=== PATIENT | female | born 1960 | race Caucasian/White ===

== ENCOUNTER 2020-03-10 03:12 | Outpatient (CLI) | payer BC, SELFPAY ==
[2020-03-10 12:34] LABS: Hemoglobin A1C 12.2 % (<5.7)
[2020-03-10 12:41] LABS: ALT 38 U/L (14-59); AST 15 U/L (15-37); Albumin 3.8 g/dL (3.4-5.0); Alkaline Phosphatase 109 U/L (46-116); Anion Gap 5.9 mmol/L (3-11); BUN 13 mg/dL (7-18); Bilirubin, Total 0.5 mg/dL (0.2-1.0); CO2 29.1 mmol/L (21.0-32.0); CREATININE 0.84 mg/dL (0.55-1.02); Calcium 9.1 mg/dL (8.5-10.1); Calculated LDL 133 mg/dL (<100); Chloride 101 mmol/L (98-107); Cholesterol 219 mg/dL (<200); Glucose 312 mg/dL (74-106); HDL Cholesterol 39 mg/dL (40-60); Potassium 4.2 mmol/L (3.5-5.1); Sodium 136 mmol/L (136-145); TSH 5.11 uIU/mL (0.36-3.74); Total Protein 6.7 g/dL (6.4-8.2); Triglyceride 238 mg/dL (<150)
[2020-03-10 13:00] LABS: FREE T4 1.03 ng/dL (0.76-1.46)
[2020-03-10 18:39] LABS: Thyroglobulin Antibody 53 U/mL (<=60); Thyroperoxidase Antibody 918 U/mL (<=60)
== END 2020-03-10 03:32 ==
PROVIDERS: PCP Nurse Practitioner Family; Visit Provider Nurse Practitioner Family
DX: E11.9 Type 2 diabetes mellitus without complications (principal); Z00.00 Encounter for general adult medical examination without abnormal findings
CPT/HCPCS: 36415; 80053; 80061; 86376; 83036; 84439; 84443

== ENCOUNTER 2020-03-18 11:28 | Outpatient (REF) | payer BC, SELFPAY ==
--- NOTE | 2020-03-18 10:00 | PAPFT_PTH ---
PATIENT: Melinda Goncalves LOC: [place] U#:[id number] AGE/SX: 60/F ROOM: RE03/18/[address]: CARLA Espinoza : 1960 BED: DIS: 03/18/2020 SPEC #: [id number] RECD: 03/18/20 13:03 STATUS: MAYKEL ELLIS #: [id number] JULIENNE: 03/18/20 10:[address]: Carolynn Wisdom DEPT: FOR[facility], [facility]–1983 Cytology RECD BY: Carmen Nieto Tissues: 1 - CX/ENDOCX FOR PAP SMEARS Procedures: PAP THIN PREP/UVM Screening HPV DNA PROBE Comments: [id number]
== END 2020-03-18 11:48 ==
LOC: LBN 11:28
PROVIDERS: PCP Nurse Practitioner Family; Visit Provider Nurse Practitioner Family
DX: Z12.4 Encounter for screening for malignant neoplasm of cervix (principal); Z11.51 Encounter for screening for human papillomavirus (HPV)
CPT/HCPCS: 88142; 87624

== ENCOUNTER 2020-07-15 17:21 | Emergency (ER) | payer BC, SELFPAY ==
[2020-07-15] VITALS (7 sets, daily range): BP systolic 108–119; BP diastolic 55–59; PULSE 59–70; RESP 12–21; TEMP 36.5–36.6; O2SAT 93–97
--- NOTE | 2020-07-15 17:24 | ED.GENADUL_ITS ---
Discharge Plan Disposition Patient Disposition: HOME Condition: Stable Discharge Details Clinical Impression: Alteration in vision Primary Care Provider: Carolynn Wisdom ED Provider: Silvana Hall Home Meds and New Rx's Prescriptions: Continued Adult 50 Plus Probiotic 4 billion cell capsule 4,000 mmu cells PO DAILY RF: 0 Complete Multivitamin Tablet 1 tab PO DAILY RF: 0 (DME) blood-glucose meter [OneTouch Ultra2 Meter] Misc See Rx Instructions .ROUTE .MEDSUPPLY Qty: 1 RF: 4 (DME) lancets [OneTouch Delica Lancets] 33 gauge misc See Rx Instructions .ROUTE .MEDSUPPLY Qty: 200 RF: 4 (DME) OneTouch Ultra Blue Test Strip Strip See Rx Instructions .ROUTE .MEDSUPPLY Qty: 200 RF: 4 rosuvastatin [Crestor] 5 mg tablet 2.5 mg PO DAILY Qty: 90 RF: 4 metformin 500 mg tablet 500 - 1,000 mg PO BID Qty: 270 RF: 4 (DME) pen needle, diabetic [BD Ultra-Fine Mini Pen Needle] 31 gauge x 3/16 needle See Rx Instructions .ROUTE .MEDSUPPLY Qty: 100 RF: 4 clotrimazole 1 % cream 1 applic TP QAM Qty: 113 RF: 0 triamcinolone acetonide 0.1 % cream 1 applic TP QPM Qty: 80 RF: 0 Lantus Solostar U-100 Insulin 100 unit/mL (3 mL) insulin pen 30 unit subcut QPM RF: 0 Discharge Instructions Instructions: Aspirin (By mouth), Visual Floaters (ED) Additional Instructions: As we discussed, we do not have a definitive diagnosis. There is concern for potential vasculitis although neurology advises that as of now we will treat similar to a stroke. She would like for you to begin daily aspirin. Please take your statin as previously prescribed as well as her other medications. I would like you to follow-up with both neurology as well as her primary care next week. You should have your inflammatory markers rechecked through your primary care next week. Please call Saturday to schedule follow-up appointment. Care management will also reach out to you to help schedule follow-up with neurology. If you develop severe headaches, vomiting, inability stay hydrated, weakness, visual loss or other new/worsening symptoms please seek care urgently once again. Referrals: Carolynn Wisdom NP [Primary Care Provider] - Blaire Covarrubias MD [ [facility] STAFF PHYSICIAN] - Discharge Data Discharge Date/Time-TO BE ENTERED AT DEPARTURE: 07/15/20 23:11 Medical Decision Making Patient is a pleasant 60-year-old female presenting today with chief complaint of left-sided intermittent hemianopsia. She reports this began 1 week ago and has been intermittent since that time. Her initial symptom was complete loss of vision on the left eye for 10 to 15 minutes which then came back. States that this is painless. Subsequently she has had intermittent symptoms. States that she may or may not have a headache associated with this. Denies having symptoms like this historically. States that she presented to her primary care today after having 3 episodes of this this morning and a 2-hour time period. She reports that when she has the symptoms, they last approximately 5 minutes. Initially, the patient had described this as a darkening of her visual field. However, she now going on to describe this as glass bubble that m who did not note any intraocular source of her symptoms. She has not had any symptoms since this morning. States that she has continued to work and complete her daily tasks. oves into the left side of her visual field. She denies any eye pain. She was seen by [facility] eye care today. They were concerned for TIA or temporal arteritis. Past medical history pertinent for type 2 diabetes, hyperlipidemia, diabetic retinopathy, hypothyroidism. Patient is also reporting increased fatigue and shortness of breath x1 month. She states that this could be associated with wearing a mask as that is what seems to work the symptoms worse. She also states that she is been very sedentary with the pandemic and this too may be linked to her increase shortness of breath and fatigue. Notes this more so when she is active. She denies any chest pain. No fevers or chills. On exam, patient appears nontoxic. Neurologic exam is intact. Visual adame are intact. She is currently asymptomatic. She has no pain over her temples. She has no nuchal rigidity. Considered TIA although I do not see any evidence of focal deficit at this point. We will also considered temporal arteritis although she was not having any temporal pain. Will obtain CBC, ESR and CRP. With the patient's increased shortness of breath, fatigue we will also obtain a D-dimer. I find pulmonary embolism less likely but do have it on the differential list. She not having any chest pain but this could also be cardiac mimic, will obtain a troponin and EKG. Plan to obtain electrolyte panel, TSH screening. ECG reviewed by Dr. Roman. NSR, rate 63. PVC noted. AL interval prlonged at 243. No acute ischemic changes noted. Labs reviewed. No leukocyte esterase. Stable H&H. D-dimer within normal limits, normal coags. No electrolyte abnormalities. Her glucose is 220. Patient has been elevated like this recently and reports that she is supposed to see a application support technician on Saturday. Troponin within normal limits. TSH is elevated but free T4 is within normal limits. FINDINGS: Lungs: No consolidation. Pleural space: No significant pleural effusion. No pneumothorax. Heart/Mediastinum: No cardiomegaly. Bones/joints: Probable minor calcific tendonitis in the right shoulder. No displaced fracture. IMPRESSION: Negative portable chest. FINDINGS: ANTERIOR CIRCULATION: Right internal carotid artery: Intracranial segment is patent with no significant stenosis. No aneurysm. Right middle cerebral artery: No occlusion or significant stenosis. No aneurysm. Right anterior cerebral artery: No occlusion or significant stenosis. No aneurysm. Left internal carotid artery: Intracranial segment is patent with no significant stenosis. No aneurysm. Left middle cerebral artery: No occlusion or significant stenosis. No aneurysm. Left anterior cerebral artery: No occlusion or significant stenosis. No aneurysm POSTERIOR CIRCULATION: Right vertebral artery: No occlusion or significant stenosis. No aneurysm. Left vertebral artery: No occlusion or significant stenosis. No aneurysm. Basilar artery: No occlusion or significant stenosis. No aneurysm. Right posterior cerebral artery: Patent proximally. The distal right CTO segments are patent, however very diminutive compared to the right and somewhat irregular in appearance. Left posterior cerebral artery: No occlusion or significant stenosis. No aneurysm. HEAD: Brain: No intracranial edema or hemorrhage. No significant white matter disease for the patient's age. Cerebral ventricles: Normal. No ventriculomegaly. Pituitary gland and sella: CSF density in the sella turcica, likely so-called benign empty sella. Bones/joints: No acute fracture. Paranasal sinuses: Visualized sinuses are normal. No fluid levels. Mastoid air cells: No mastoid effusion. Soft tissues: No suspicious lesions. IMPRESSION: The distal right CTO segments are patent, however very diminutive compared to the right and somewhat irregular in appearance. Question vasculitis in the right clinical setting. No focal thrombus or embolus is seen. FINDINGS: Right common carotid artery: No significant stenosis. No dissection or occlusio n. Right internal carotid artery: No stenosis or occlusion. No significant atherosclerosis. Right external carotid artery: No occlusion or significant stenosis. Right vertebral artery: No significant stenosis. No dissection or occlusion. Left common carotid artery: No significant stenosis. No dissection or occlusion. Left internal carotid artery: Minimal proximal left ICA atherosclerosis. Widely patent with mild much less than 50% stenosis. No dissection or occlusion. Left external carotid artery: No occlusion or significant stenosis. Left vertebral artery: No significant stenosis. No dissection or occlusion. Bones/joints: Mid cervical degenerative changes. Probable small benign hemangioma at C4. No acute fracture or subluxation. Soft tissues: No significant soft tissue swelling. IMPRESSION: No acute arterial pathology. Patent carotid and vertebral system bilaterally. Discussed these findings withteh patient. When I went in the roomshe advised that she was having the symptoms. We were able to narrow down that the area of visual disturbance is the left upper outter quadrant. She has intact visual adame with no notable deficit. However, she is having the broken glass bubbles in her field of vision. this lasted about 5 minutes. No AGEE. Nothing to incite or improve symptoms. Constulted with Dr. Haro with [facility]. She was able to review the images and is not clear that the read is correct. She advised that if the patient was to have lesion/vasculitis in the right CTO it should cause bilateral visual symptoms, not the unilateral that the patient has been suffering from. She also advised that focal vasculitis is unusual. She advised that we instead should treat the patient like a stroke although she does not see evidence of acute occlusion. She is already on a statin but she advised starting her on ASA. She did not recommend echo as this was affecting the posterior circulation. She advised f/u with Dr. Niño this week as well as repeat ESR/CRP this week through primary care. She did nto feel that the patient needed to be admitted. I discussed this witht he patient. She agrees with this plan. I have placed her on care management list for f/u with neurology. She iwll call PCP on Saturday to schedule f/u appointment and discuss repeat labs. Strict return precautions were given. She has someone to drive her home. Dose of ASA given while here. All of her question snad concerns were addressed, she is in agreement with this plan. HPI General Mode of arrival: ambulatory . Date/Time Provider Initiated Documentation: 07/15/20 17:23 . Limitations to Documentation: no limitations . Information obtained by: patient, RN notes reviewed and old records reviewed (note sent over from [facility]) . History of Present Illness 60 year old F presents to the emergency department with the chief complaint of intermittent lateral visual disturbance in left eye, described as moderate, Quality is described as other (denies any pain, able to complete typical activities), and is localized to the eyes (only the left). Patient reports no radiation. Patient started experiencing this week(s) (1) and it has been intermittent and now resolved. No relieving factors improve symptom(s), No exacerbating factors reported . Patient notes headaches (intermittent and not always with the visual changes); denies chest pain, cough, diaphoresis, fever/chills, loss of appetite, nausea/vomiting, rash, shortness of breath, syncope and weakness. Patient did receive the following treatments prior to arrival, none Related Data Home Medications Medication Instructions Recorded Confirmed lactobacillus combination no.9 4 4,000 mmu cells PO DAILY 03/04/20 07/15/20 billion cell capsule multivitamin,[id number] 1 tab PO DAILY 03/04/20 07/15/20 blood sugar diagnostic #200 ea 03/18/20 07/15/20 blood-glucose meter #1 ea 03/18/20 07/15/20 lancets 33 gauge #200 ea 03/18/20 07/15/20 metformin 500 mg tablet 500 - 1,000 mg PO BID #270 tab 04/21/20 07/15/20 rosuvastatin 5 mg tablet 2.5 mg PO DAILY #90 tab 04/21/20 07/15/20 pen needle, diabetic 31 gauge x #100 ea 05/30/20 07/15/20/16 clotrimazole 1 % topical cream 1 applic TP QAM #113 gm 07/13/20 07/15/20 triamcinolone acetonide 0.1 % 1 applic TP QPM #80 gm 07/13/20 07/15/20 topical cream Lantus Solostar U-100 Insulin 30 unit SUBCUT QPM 07/15/20 07/15/20 Previous Rx's Medication Instructions Recorded blood sugar diagnostic #200 ea 03/18/20 blood-glucose meter #1 ea 03/18/20 lancets 33 gauge #200 ea 03/18/20 metformin 500 mg tablet 500 - 1,000 mg PO BID #270 tab 04/21/20 rosuvastatin 5 mg tablet 2.5 mg PO DAILY #90 tab 04/21/20 pen needle, diabetic 31 gauge x #100 ea 05/30/2009/13 clotrimazole 1 % topical cream 1 applic TP QAM #113 gm 07/13/20 triamcinolone acetonide 0.1 % 1 applic TP QPM #80 gm 07/13/20 topical cream Allergies Allergy/AdvReac Type Severity Reaction Status Date / Time No Known Allergies Allergy Unverified 07/15/20 12:01 Review of Systems Constitutional Constitutional: Reports as per HPI, Denies chills, Denies fever(s), Denies frequent falls, Reports headache(s), Denies snoring and Denies weakness Eyes Eyes: Reports as per HPI, Denies blurry vision, Reports change in vision, Denies diplopia, Denies eye discharge, Reports floaters, Denies irritation, Denies itchy eyes, Denies loss of peripheral vision, Denies loss of vision (had hemionopsia on left eye at initial onset but none since then), Reports requires corrective lenses (chronic), Denies photophobia and Denies spots in vision ENT Ears, Nose, Mouth, and Throat: Denies vertigo, Reports headache(s) and Denies neck pain Cardiovascular Cardiovascular: Reports as per HPI, Denies chest pain, Denies lightheadedness, Denies radiating jaw, neck or arm pain, Denies dyspnea and Denies dyspnea on exertion Respiratory Respiratory: Reports as per HPI, Denies chest congestion, Denies cough, Denies dyspnea, Denies dyspnea on exertion, Denies snoring, Denies stridor and Denies wheezing Gastrointestinal Gastrointestinal: Reports as per HPI, Denies abdominal pain, Denies change in bowel habits, Denies nausea and Denies vomiting Musculoskeletal Musculoskeletal: Reports as per HPI, Denies back pain, Denies myalgias, Denies muscle cramps, Denies neck pain and Denies numbness Integumentary/Breasts Skin/Breast: Reports as per HPI and Denies rash Neurologic Neurologic: Reports as per HPI, Denies abnormal movements, Denies abnormal speech, Denies behavioral changes, Denies confusion, Denies vertigo, Denies frequent falls, Reports headache(s), Denies localized weakness, Denies loss of vision (had hemionopsia on left eye at initial onset but none since then), Denies numbness, Denies sensory deficit and Denies weakness Psychiatric Psychiatric: Denies behavioral changes and Denies confusion Allergic/Immunologic Allergic/Immunologic: Denies itchy eyes and Denies wheezing [facility] Medical History Diabetic retinopathy of right eye Mild Hyperlipidemia Subclinical hypothyroidism Type 2 diabetes mellitus Surgical History S/P appendectomy (~1972) Family History Mother Hyperlipidemia Father Heart disease Sister No problems noted. Brother Lymphedema Brother No problems noted. Son No problems noted. Daughter No problems noted. Maternal Grandfather Cancer Maternal Grandmother Dementia Paternal Grandfather No problems noted. Paternal Grandmother Diabetes Social History Smoking/Tobacco Use Status: Former Tobacco Use Quit Date: 07/01/15 Second Hand Exposure: Yes (father yrs ago) Smoking risk assessment performed?: Yes Alcohol Intake: current Alcohol Intake frequency: 0-2 drinks per day Alcohol type: beer and wine Drug use: Never Caregiver/Support person: No Housing: house Communication Needs: None Pets and animals: Yes Do you think of yourself as: straight/heterosexual Current gender identity: female What is your relationship status?: How often do you talk on the phone with friends or family?: three or more times per week How often do you get together with friends or relatives?: once per week How often do you attend episcopalian or druze services?: decline to answer Do you belong to any clubs or organized social groups?: yes Panel score (0-1 are the most socially isolated patients): 2 What type of physical activity do you participate in: none Yisel/Caodaism: None Seatbelt use: always Helmet use: Yes Helmet use: always Drive intox or ride w/intox entry driver operator: No Do you feel safe at home: Yes Do you feel safe in your relationship?: Yes History History 3 Para 2 Hx # Term Pregnancies Multiple births Hx # Pregnancies Ectopic pregnancies AB induced 1 Hx Number of Living Children 2 AB spontaneous Exam Const General: cooperative, healthy appearing, uncomfortable, no acute distress, well developed and well groomed Nutritional Appearance: average body habitus and well nourished Orientation: alert, awake and oriented x3 HENMT Head: normal to inspection, no palpable skull fracture, normocephalic and atraumatic Ears: hearing grossly normal bilaterally, external ears normal and TM's normal bilaterally General nose exam: external nose normal Mouth: oral mucosae normal and moist mucous membranes Throat: posterior oropharynx normal Eyes General: appearance normal, both eyes and all related structures Visual Adame: normal visual adame by confrontation Alignment and Position: alignment normal and position normal Periorbital: periorbital findings normal Eyelids: eyelids normal Sclera: sclerae normal Cornea: corneas normal Pupils: dilated bilaterally (eyes were dilated just prior to arrival by police communications dispatcher) EOM: EOM intact bilaterally Neck Neck: normal visual inspection, full ROM, no lymphadenopathy and no meningeal signs Resp Effort & Inspection: normal respiratory effort, able to speak in complete se ntences and no respiratory distress Auscultation: clear to auscultation bilaterally, no rales, no rhonchi and no wheezes Cardio Rate: regular rate Rhythm: regular rhythm Heart Sounds: S1 normal and S2 normal GI Palpation: rigid and tender Back/Spine/Pelvis Cervical Spine: normal cervical lordosis and cervical ROM normal Skin General skin exam: no rashes or lesions noted Neuro General: patient alert, patient awake and patient oriented x3 Cranial Nerves: CN's II-XI intact bilaterally Cognition: normal cognition Speech: speech normal Gait: normal gait Motor: muscle tone normal throughout, strength 5/5 throughout, no pronator drift, no movement abnormalities noted and no fasciculations Sensory Exam: no sensory deficits noted Coordination: [id number] test normal, [id number] test normal, Romberg test normal, Does not sway with eyes open and rapid alternating movement UE normal Extrem General: normal to inspection, capillary refill normal, no pedal edema and no calf tenderness Psych Appearance: grossly normal and well kempt Mental Status: mental status grossly normal Speech and Movement: speech and movement normal
--- NOTE | 2020-07-15 18:00 | RT.EKG_ITS ---
APPROVED REPORT Exam: Resting ECG Patient Location: E HR:63 bpm ECG Measurements Heart Rate 63 AXIS IN 243 P 0 QRSd 96 QRS -5 QT 420 T 56 QTc 430 Conclusion Sinus rhythm. Ventricular premature complex. Prolonged IN interval.
--- NOTE | 2020-07-15 18:00 | DI.CT_ITS ---
EXAM: CT BRAIN NECK CTA CLINICAL HISTORY: left lateral visual deficit intermittently. TECHNIQUE: Imaging Protocol: Axial CT angiography was performed with multi-slice acquisition and mu lti-planar and/or 3D reconstructions. CONTRAST MATERIAL: Intravenous: Omnipaque 350 Contrast volume:85 mL COMPARISON: No exams were available for comparison FINDINGS: CT Head W/O: Ventricles and Extra axial spaces: Normal in size and morphology for the patient's age. Hemorrhage: None. Cerebral parenchyma: Normal. Midline shift: None. Brainstem/Cerebellum: Normal. Calvarium: Normal. Visualized Paranasal sinuses/Mastoids: Clear. Soft Tissues: Unremarkable. CTA Brain W: Internal Carotid Arteries: Petrous: Normal. Cavernous: Normal. Cerebral: Normal. Anterior Cerebral Arteries: Right: No aneurysm, occlusion or significant stenosis. Left: No aneurysm, occlusion or significant stenosis. Middle Cerebral Arteries: Right: No aneurysm, occlusion or significant stenosis. Left: No aneurysm, occlusion or significant stenosis. Posterior cerebral Arteries: Right: No aneurysm or occlusion. Mild decrease in size of the right distal FILM CRITIC segments. They have a somewhat irregular appearance. Vasculitis cannot be excluded given in the right clinical setting. Left: No aneurysm, occlusion or significant stenosis. Vertebral Arteries: Right: No aneurysm, occlusion or significant stenosis. Left: No aneurysm, occlusion or significant stenosis. Basilar Artery: No aneurysm, occlusion or significant stenosis. CTA Neck W: Common Carotid: Right: No dissection, occlusion or significant stenosis. Left: No dissection, occlusion or significant stenosis. External Carotid: Right: No occlusion or significant stenosis. Left: No occlusion or significant stenosis. Internal Carotid: Right: No dissection, occlusion or significant stenosis. Left: No dissection, occlusion or significant stenosis. Mild proximal atherosclerosis. Vertebral Artery: Right: No dissection, occlusion or significant stenosis. Left: No dissection, occlusion or significant stenosis. Lung Apices: Normal. Bones: Mild degenerative changes in the cervical spine. Soft Tissues: Normal. IMPRESSION: 1. No evidence of occlusion or aneurysm in the CTA of the brain. 2. Patent distal right FILM CRITIC segments however smaller in size compared to the left. Vasculitis should be considered in the appropriate clinical setting. 3. No acute intracranial process. Unremarkable non-contrast CT of the brain. 4. No evidence of occlusion or significant stenosis on the CTA of the neck. RADIATION DOSE DELIVERED: 1,158.64mGy.cm Total DLP DATA REPOSITORY: All CT scans at this facility are submitted to the National Radiology Data Registry (NRDR) Dose Index Registry (DIR) with the [employer] (A[employer]). RADIATION OPTIMIZATION: All CT scans at this facility use at least one of these dose optimization te chniques: automated exposure control; mA and/or kV adjustment per patient size (includes targeted exa ms where dose is matched to clinical indication); or iterative reconstruction.
--- NOTE | 2020-07-15 18:08 | DI.RAD_ITS ---
EXAM: XR PORTABLE CHEST AP CLINICAL HISTORY: SOB TECHNIQUE: 2D digital imaging was performed. COMPARISON: No exams were available for comparison FINDINGS: MEDIASTINUM: Normal. HEART: Normal. PULMONARY VASCULATURE: Normal. LUNGS: Clear. PLEURAL SPACE: No pleural effusion or pneumothorax. BONE:Within normal limits for the patient's age. OTHER FINDINGS:Normal. IMPRESSION: No acute pulmonary findings. DATA REPOSITORY: RADIATION DOSE DELIVERED:
[2020-07-15 18:35] LABS: Abs Immature Grans 0.02 10^3/uL (0.0-0.06); Absolute Basophil Count 0.08 10^3/uL (0.0-0.2); Absolute Lymphocyte Count 2.45 10^3/uL (1.2-3.4); Absolute Monocyte Count 0.44 10^3/uL (0.1-0.8); Absolute Neutrophil Count 3.93 10^3/uL (1.2-6.7); Basophils % 1.1; Eosinophils % 2.8; HCT 38.5 % (36.0-46.0); HGB 12.9 g/dL (11.2-15.7); Immature Grans % 0.3; Lymphocytes % 34.4; MCH 29.5 pg (27.0-33.0); MCHC 33.5 % (32.0-36.0); MCV 88.1 fL (80-95); Monocytes % 6.2; Neutrophils % 55.2; Nucleated RBC 0 %; Platelet Count 249 10^3/uL (130-400); RBC 4.37 10^6/uL (3.93-5.22); RDW 12.3 % (11.7-14.6); RDW-SD 39.9 fL; WBC 7.12 10^3/uL (4.4-10.8)
[2020-07-15 18:52] LABS: ALT 26 U/L (14-59); AST 19 U/L (15-37); Albumin 3.7 g/dL (3.4-5.0); Alkaline Phosphatase 75 U/L (46-116); Anion Gap 8.8 mmol/L (3-11); BUN 15 mg/dL (7-18); Bilirubin, Total 0.4 mg/dL (0.2-1.0); CO2 25.2 mmol/L (21.0-32.0); Calcium 9.1 mg/dL (8.5-10.1); Chloride 104 mmol/L (98-107); Estimated GFR 56.75 (mL/min/1.73m2); Glucose 220 mg/dL (74-106); Magnesium 1.9 mg/dL (1.8-2.4); Potassium 3.8 mmol/L (3.5-5.1); Sodium 138 mmol/L (136-145); Total Protein 7.3 g/dL (6.4-8.2); Troponin I < 0.05 ng/mL (<0.06)
[2020-07-15 19:09] LABS: D-Dimer 377 ng/mlFEU (<500)
[2020-07-15 19:30] LABS: TSH (W/Ref FT4) 4.83 uIU/mL (0.36-3.74)
[2020-07-15 19:48] LABS: FREE T4 0.95 ng/dL (0.76-1.46)
[2020-07-15] MEDS: Normal Saline Flush 10 ML SYR IVP (19:58)
[2020-07-15] MEDS: Normal Saline - Diluent 50 ML VIAL IV (19:59)
[2020-07-15] MEDS: Omnipaque 350 MG/ML 100 ML BTL IJ (19:59)
--- NOTE | 2020-07-15 20:04 | DI.VRAD_ITS ---
Addendum created by Marya Loomis MD on 07/15/2020 8:28:25 PM EST: THIS REPORT CONTAINS FINDINGS THAT MAY BE CRITICAL TO PATIENT CARE. The pertinent findings were verbally communicated via telephone conference with Dr Hills at 20:28 EST on 07/15/2020. The findings were acknowledged and understood. Initial report created on 07/15/2020 8:04:35 PM EST: PROCEDURE INFORMATION: Exam: CT Angiography Head Without And With Contrast Exam date and time: 07/15/2020 18:11 Age: 60 years old Clinical indication: Visual disturbance; Other visual defect; Patient HX: Left eye only, left lateral visual deficit intermittently TECHNIQUE: Imaging protocol: Computed tomographic angiography of the head without and with intravenous contrast. 3D rendering (Not supervised by radiologist): MIP and/or 3D reconstructed images were created by the technologist. Radiation optimization: All CT scans at this facility use at least one of these dose optimization techniques: automated exposure control; mA and/or kV adjustment per patient size (includes targeted exams where dose is matched to clinical indication); or iterative reconstruction. Contrast material: [id number]; Contrast volume: 85 ml; Contrast route: INTRAVENOUS (IV); COMPARISON: No relevant prior studies available. FINDINGS: ANTERIOR CIRCULATION: Right internal carotid artery: Intracranial segment is patent with no significant stenosis. No aneurysm. Right middle cerebral artery: No occlusion or significant stenosis. No aneurysm. Right anterior cerebral artery: No occlusion or significant stenosis. No aneurysm. Left internal carotid artery: Intracranial segment is patent with no significant stenosis. No aneurysm. Left middle cerebral artery: No occlusion or significant stenosis. No aneurysm. Left anterior cerebral artery: No occlusion or significant stenosis. No aneurysm. POSTERIOR CIRCULATION: Right vertebral artery: No occlusion or significant stenosis. No aneurysm. Left vertebral artery: No occlusion or significant stenosis. No aneurysm. Basilar artery: No occlusion or significant stenosis. No aneurysm. Right posterior cerebral artery: Patent proximally. The distal right FAN MAIL CLERK segments are patent, however very diminutive compared to the right and somewhat irregular in appearance. Left posterior cerebral artery: No occlusion or significant stenosis. No aneurysm. HEAD: Brain: No intracranial edema or hemorrhage. No significant white matter disease for the patient's age. Cerebral ventricles: Normal. No ventriculomegaly. Pituitary gland and sella: CSF density in the sella turcica, likely so-called benign empty sella. Bones/joints: No acute fracture. Paranasal sinuses: Visualized sinuses are normal. No fluid levels. Mastoid air cells: No mastoid effusion. Soft tissues: No suspicious lesions. IMPRESSION: The distal right FAN MAIL CLERK segments are patent, however very diminutive compared to the right and somewhat irregular in appearance. Question vasculitis in the right clinical setting. No focal thrombus or embolus is seen. PROCEDURE INFORMATION: Exam: CT Angiography Neck Without And With Contrast Exam date and time: 07/15/2020 18:11 Age: 60 years old Clinical indication: Visual disturbance; Other visual defect; Patient HX: Left eye only, left lateral visual deficit intermittently TECHNIQUE: Imaging protocol: Computed tomographic angiography of the neck without and with intravenous contrast. 3D rendering (Not supervised by radiologist): MIP and/or 3D reconstructed images were created by the technologist. Radiation optimization: All CT scans at this facility use at least one of these dose optimization techniques: automated exposure control; mA and/or kV adjustment per patient size (includes targeted exams where dose is matched to clinical indication); or iterative reconstruction. Contrast material: [id number]; Contrast volume: 85 ml; Contrast route: INTRAVENOUS (IV); COMPARISON: No relevant prior studies available. FINDINGS: Right common carotid artery: No significant stenosis. No dissection or occlusion. Right internal carotid artery: No stenosis or occlusion. No significant atherosclerosis. Right external carotid artery: No occlusion or significant stenosis. Right vertebral artery: No significant stenosis. No dissection or occlusion. Left common carotid artery: No significant stenosis. No dissection or occlusion. Left internal carotid artery: Minimal proximal left ICA atherosclerosis. Widely patent with mild much less than 50% stenosis. No dissection or occlusion. Left external carotid artery: No occlusion or significant stenosis. Left vertebral artery: No significant stenosis. No dissection or occlusion. Bones/joints: Mid cervical degenerative changes. Probable small benign hemangioma at C4. No acute fracture or subluxation. Soft tissues: No significant soft tissue swelling. IMPRESSION: No acute arterial pathology. Patent carotid and vertebral system bilaterally. REFERENCES: NASCET CRITERIA. The degree of internal carotid artery stenosis is based on NASCET criteria. Normal is no stenosis. Mild is less than 50% stenosis. Moderate is 50-69% stenosis. Severe is 70% to 99% stenosis. Total occlusion is no detectable patent lumen. Dictated and Authenticated by: Marya Loomis MD. Ordering:RYLEE Pina MD
--- NOTE | 2020-07-15 20:05 | DI.VRAD_ITS ---
PROCEDURE INFORMATION: Exam: XR Chest, 1 View Exam date and time: 07/15/2020 18:50 Age: 60 years old Clinical indication: Shortness of breath TECHNIQUE: Imaging protocol: XR of the chest Views: 1 view. COMPARISON: No relevant prior studies available. FINDINGS: Lungs: No consolidation. Pleural space: No significant pleural effusion. No pneumothorax. Heart/Mediastinum: No cardiomegaly. Bones/joints: Probable minor calcific tendonitis in the right shoulder. No displaced fracture. IMPRESSION: Negative portable chest. Dictated and Authenticated by: Marya Loomis MD. Ordering:RYLEE Pina MD
[2020-07-15 20:27] LABS: C-Reactive Protein 0.27 mg/dL (0.0-0.3)
[2020-07-15 21:18] LABS: ESR 12 mm/hr (0-30)
--- NOTE | 2020-07-15 22:53 | NUR.NOTE ---
Nursing Note:REFERAL TO MELANIE MAKE APPT TO DR PIERRE NEXT WEEK 07/15/20
[2020-07-15] MEDS: Aspirin 325 MG TAB (22:57)
== END 2020-07-15 23:11 | disposition home or self-care (01) ==
PROVIDERS: Emergency Provider Physician Assistant; PCP Nurse Practitioner Family
DX: H53.482 Generalized contraction of visual field, left eye (principal); E11.319 Type 2 diabetes mellitus with unspecified diabetic retinopathy without macular edema; E11.65 Type 2 diabetes mellitus with hyperglycemia; Z79.4 Long term (current) use of insulin
CPT/HCPCS: 36415; 70496; 70498; 80053; 85652; 93005; 99285; 71045; 83735; 84439; 84443; 84484; 85025; 85379; 85610; 86140; 93010; J3490

== ENCOUNTER 2020-07-18 04:50 | Outpatient (CLI) | payer BC, SELFPAY ==
--- NOTE | 2020-07-18 15:00 | NS.NUTBLAN_ITS ---
Melinda was referred for Medical Nutrition Therapy for diabetes self management education. Melinda is a 60 year old female with elevated BMI, hypothroidism, DM2, HLD with recent ER visit for visual disturbances related to diabetic retinopathy. A1c has improved from 12.2% (03/2020) to 8.6% (07/18/20), however, blood sugar control continues to be poor. Melinda reports elevated post prandial levels as high as 300-400s mg/dl in afternoon. Melinda reports checking BS, 1-2 times daily. Diet recall indicates mostly homemade well balanced meals with moderate activity daily caring for her horses. She reports that her typical adult weight was 250 lbs, was able to lose 50 lbs a couple years ago by increasing activity while working for [employer]. Current Wt: 217 lbs, 63 inches, BMI 39. Meds: 1000 mg metformin BID, 30 units lantus at HS, metformin increased today, also received script for 50 mcg levothyroixin for hypoactive thyroid. Melinda was at PCP today who encouraged her to get a continuous glucose monitor to better evaluate glucose variability and patterns. Expect glucose control to be improved with treated hypothyroidism and increase in metformin. Session today included how to count carbohydrates and how to limit carbs at meals and balance with lean protein. Encouraged 1 mile walk daily to increase exercise and glucose utilization my muscles. Melinda to bring in her CGM when available at pharmacy and will be placed by flex o writer operator. Follow up planned in 2 weeks to evaluate CGM results. CGM reports to be provided to PCP for evaluation.
== END 2020-07-18 05:10 ==
PROVIDERS: PCP Nurse Practitioner Family; Visit Provider Dietitian, Registered
DX: E11.9 Type 2 diabetes mellitus without complications (principal); E03.9 Hypothyroidism, unspecified; Z79.4 Long term (current) use of insulin; Z79.84 Long term (current) use of oral hypoglycemic drugs; Z71.3 Dietary counseling and surveillance
CPT/HCPCS: 97802

== ENCOUNTER 2020-07-18 18:15 | Outpatient (REF) | payer BC, SELFPAY ==
[2020-07-18 13:41] LABS: Anion Gap 11.6 mmol/L (3-11); BUN 14 mg/dL (7-18); CO2 23.4 mmol/L (21.0-32.0); CREATININE 0.95 mg/dL (0.55-1.02); Calcium 9.6 mg/dL (8.5-10.1); Calculated LDL 76 mg/dL (<100); Chloride 102 mmol/L (98-107); Cholesterol 159 mg/dL (<200); Glucose 208 mg/dL (74-106); HDL Cholesterol 51 mg/dL (40-60); Potassium 4.1 mmol/L (3.5-5.1); Sodium 137 mmol/L (136-145); TSH 5.11 uIU/mL (0.36-3.74); Triglyceride 161 mg/dL (<150)
[2020-07-18 13:48] LABS: Hemoglobin A1C 8.6 % (<5.7)
[2020-07-18 14:12] LABS: ESR 13 mm/hr (0-30)
[2020-07-18 14:23] LABS: C-Reactive Protein 0.31 mg/dL (0.0-0.3)
== END 2020-07-18 18:35 ==
LOC: LBN 18:15
PROVIDERS: PCP Nurse Practitioner Family; Visit Provider Nurse Practitioner Family
DX: E11.9 Type 2 diabetes mellitus without complications (principal); H53.8 Other visual disturbances
CPT/HCPCS: 80048; 80061; 85652; 83036; 84439; 84443; 86140

== ENCOUNTER 2020-07-21 03:43 | Outpatient (CLI) | payer BC, SELFPAY ==
--- NOTE | 2020-07-21 08:30 | DI.MRI_ITS ---
EXAM: MR BRAIN WO/W CLINICAL HISTORY: Left eye vision loss, r/o ischemia/infarct,H53.132,H53.9 TECHNIQUE: Multiplanar multisequence MRI of the brain was performed. CONTRAST MATERIAL: IV Contrast: 20 ML of Dotarem contrast administered. COMPARISON: CT CT BRAIN NECK CTA from 07/15/2020 FINDINGS: The examination is limited due to patient motion artifact. VENTRICLES AND EXTRA AXIAL SPACES: Normal in size and morphology for the patient's age. HEMORRHAGE: None. CEREBRAL PARENCHYMA: No focus of restricted diffusion to suggest acute infarct. No space-occupying le kym identified. MIDLINE SHIFT: None. BRAINSTEM/CEREBELLUM: Normal. CALVARIUM: Normal. ENHANCEMENT: No suspicious enhancement identified. VISUALIZED PARANASAL SINUSES/MASTOIDS: Clear. [place]: Normal flow void. PITUITARY GLAND: Unremarkable. No sellar or suprasellar mass. The optic chiasm and infundibulum are u nremarkable. OTHER FINDINGS: IMPRESSION: No intracranial mass or enhancing lesion. No evidence of an acute infarct. No evidence of a pituitary or sellar/suprasellar mass. DATA REPOSITORY:
[2020-07-21] MEDS: Normal Saline Flush 10 ML SYR IVP (14:29)
[2020-07-21] MEDS: Gadoterate meglumine 20 ML VIAL IVP (14:30)
== END 2020-07-21 04:03 ==
PROVIDERS: PCP Nurse Practitioner Family; Visit Provider Nurse Practitioner Family
DX: H53.132 Sudden visual loss, left eye (principal)
CPT/HCPCS: 70553

== ENCOUNTER 2020-07-21 09:16 | Outpatient (CLI) | payer BC, SELFPAY | END 2020-07-21 09:36 | PROVIDERS: PCP Nurse Practitioner Family; Visit Provider Psychiatry & Neurology Neurology | DX: H53.8 Other visual disturbances (principal) | CPT/HCPCS: 93270 ==

== ENCOUNTER 2020-08-04 23:56 | Outpatient (REF) | payer BC, SELFPAY ==
[2020-08-05 13:03] LABS: COMMENT (LAB VIEW ONLY) 149.09 mg/dL; Microalb ug/mg Crea 5.1 ug/mg Cr
--- NOTE | 2020-09-05 12:24 | W.CARDEVENT ---
Date of service: 09/05/20 Time of Service: 12:24 Cardiac Event Recorder Referring Provider:: Margoth Indications:: Vision loss Cardiac Event Note: This was a 30 day event monitor. It was worn for a total of 9 days. The patient was in normal sinus rhythm with occasional first-degree heart block and average heart rate of 69 bpm. There are no episodes of atrial fibrillation, no pauses greater than 3 seconds with no evidence of high degree heart block. There were no episodes of ventricular tachycardia. There were no serious events and one patient triggered even was associated with NSR.
== END 2020-08-04 23:57 | disposition home or self-care (01) ==
LOC: LBN 23:56
PROVIDERS: PCP Nurse Practitioner Family; Visit Provider Nurse Practitioner Family
DX: E11.9 Type 2 diabetes mellitus without complications (principal)
CPT/HCPCS: 82043; 82570

== ENCOUNTER 2020-08-23 03:00 | Outpatient (CLI) | payer BC, SELFPAY ==
--- NOTE | 2020-08-23 13:00 | NS.NUTBLAN_ITS ---
Melinda returns for Medical Nutrition Therapy for continuous glucose monitor placement (Caroline 2) for her uncontrolled DM. PMH: DM, HLD, hypothyroidism, diabetic retinopathy. Most recent A1C 8.6% (07/18/20). Melinda reports since last visit (07/18/20) fasting blood sugars ranging from 84-120 mg/dl. She only checks once daily. Meds include 2000 mg metformin BID, lantus 32 u at hs. She reports she has increased exercise by walking daily 20 minutes. No hypoglycemic events reported. Reports that if she eats anything after 4 pm, her BS are > 200 mg/dl in AM. Intervention: Placed Caroline 2 continuous glucose monitor and programmed reader with target range of 70-180 mg/dl. Hypo and hyper glycemia alarms set. Educated Melinda on how to adjust alarms per preference and encouraged her to swipe reader at least 4 times daily. Reviewed well balanced meals and encouraged 3 meals and 2 snacks daily for optimal glycemic control. Follow up visit for CGM download scheduled at 09/09/20 at 1 pm.
== END 2020-08-23 03:01 | disposition home or self-care (01) ==
LOC: DS 03:00
PROVIDERS: PCP Nurse Practitioner Family; Visit Provider Dietitian, Registered
DX: E11.69 Type 2 diabetes mellitus with other specified complication (principal); Z79.4 Long term (current) use of insulin; Z71.3 Dietary counseling and surveillance
CPT/HCPCS: 97803

== ENCOUNTER 2020-09-06 03:51 | Outpatient (CLI) | payer BC, SELFPAY ==
--- NOTE | 2020-09-06 13:00 | NS.NUTBLAN_ITS ---
Melinda returns for medical nutrition therapy for diabetes management. She brought in her Caroline 14 day reader and had it downloaded. She takes 32 units lantus at night and 500 mg metformin in AM and PM. Continuous glucose monitor down loaded from 08/24-09/06/20. Average glucose: 158 mg/dl. She was in range (70-180 mg/dl) 72% of the time, she had no hypoglycemic episodes, however had high blood sugars (180-250mg/dl) 26% of the time. Glucose variability 25.6%. CGM report indicates elevated blood sugars due to high amounts of carbohydrate at meals, reviewed carb counting principles today and encouraged no more than 45 g carbs per meals. Also, encouraged eating on a schedule for improved glycemic control. Plan: Melinda will follow up with PCP next week and bring her CGM report. If unable to reduce carb intake at meals, will need short acting insulin with meals. Recommend continuing use of CGM as an excellent teaching tool.
== END 2020-09-06 03:52 | disposition home or self-care (01) ==
LOC: DS 03:51
PROVIDERS: PCP Nurse Practitioner Family; Visit Provider Dietitian, Registered
DX: E11.65 Type 2 diabetes mellitus with hyperglycemia (principal); Z79.4 Long term (current) use of insulin; Z71.3 Dietary counseling and surveillance
CPT/HCPCS: 97803

== ENCOUNTER 2020-10-31 02:17 | Outpatient (CLI) | payer BC, SELFPAY ==
[2020-10-31 13:06] LABS: FREE T4 1.11 ng/dL (0.76-1.46); TSH 2.43 uIU/mL (0.36-3.74)
== END 2020-10-31 02:18 | disposition home or self-care (01) ==
LOC: LOS 02:17
PROVIDERS: PCP Nurse Practitioner Family; Visit Provider Nurse Practitioner Family
DX: E11.9 Type 2 diabetes mellitus without complications (principal); E03.9 Hypothyroidism, unspecified
CPT/HCPCS: 36415; 83036; 84439; 84443

== ENCOUNTER 2020-12-20 18:11 | Outpatient (REF) | payer BC, SELFPAY ==
[2020-12-20 18:36] LABS: Uric Acid 3.1 mg/dL (2.6-6.0)
[2020-12-22 13:55] LABS: COVID-19 RT-PCR UVMMC Result Negative (Negative)
== END 2020-12-20 18:12 | disposition home or self-care (01) ==
LOC: LBN 18:11
PROVIDERS: PCP Nurse Practitioner Family; Visit Provider Nurse Practitioner Family
DX: R22.31 Localized swelling, mass and lump, right upper limb (principal); J02.9 Acute pharyngitis, unspecified; Z20.822 Contact with and (suspected) exposure to COVID-19; M79.644 Pain in right finger(s)
CPT/HCPCS: U0003; 84550

== ENCOUNTER 2021-01-19 05:17 | Outpatient (CLI) | payer BC, SELFPAY ==
--- NOTE | 2021-01-19 14:00 | DI.RAD_ITS ---
Exam(s) XR HAND RT COMPLETE EXAM: XR HAND RT COMPLETE CLINICAL HISTORY: swollen rt middle finger x 1mo,M79.89. TECHNIQUE: 2D digital imaging was performed. COMPARISON: No exams were available for comparison FINDINGS: There is no evidence of acute fracture. No subluxation. No erosions. In the 2nd-index finger there is a 2 millimeter corticated calcification dorsal to DIP joint. Mild d egenerative changes are noted in the joint. Also mild degenerative changes the medial aspect of the metacarpophalangeal joint index finger. Third finger reveals mild narrowing of the metacarpophalange al joint. No erosions. Moderate-advanced degenerative changes noted in the distal interphalangeal j oint. There is a 1 millimeter calcific density off the medial aspect of the proximal interphalangeal joint noted. Fourth finger unremarkable. Fifth finger some degenerative changes in the DIP joint. Also noted are moderate-advanced degenerative changes in the 1st carpometacarpal joint, this being th e articulation between the thumb metacarpal and trapezium. There is no significant ulnar variance at the level of the wrist. IMPRESSION: Multilevel findings as described above. No ominous osseous lesions nor erosions evident. DATA REPOSITORY: RADIATION DOSE DELIVERED:
== END 2021-01-19 05:37 ==
PROVIDERS: PCP Nurse Practitioner Family; Visit Provider Nurse Practitioner Family
DX: M18.11 Unilateral primary osteoarthritis of first carpometacarpal joint, right hand (principal)
CPT/HCPCS: 73130

== ENCOUNTER 2021-02-01 03:16 | Outpatient (CLI) | payer BC, SELFPAY ==
[2021-02-01 13:22] LABS: Hemoglobin A1C 8.3 % (<5.7)
== END 2021-02-01 03:17 | disposition home or self-care (01) ==
LOC: LOS 03:16
PROVIDERS: PCP Nurse Practitioner Family; Visit Provider Nurse Practitioner Family
DX: E11.9 Type 2 diabetes mellitus without complications (principal)
CPT/HCPCS: 36415; 83036

== ENCOUNTER 2021-09-27 03:01 | Outpatient (CLI) | payer BC, SELFPAY ==
[2021-09-27 10:32] LABS: HGB 13.2 g/dL (11.2-15.7); MCH 28.5 pg (27.0-33.0); MCHC 32.2 % (32.0-36.0); MCV 88.6 fL (80-95); Platelet Count 274 10^3/uL (130-400); RBC 4.63 10^6/uL (3.93-5.22); RDW 13.1 % (11.7-14.6); RDW-SD 42.5 fL; WBC 8.61 10^3/uL (4.4-10.8)
[2021-09-27 12:08] LABS: ALT 29 U/L (14-59); AST 21 U/L (15-37); Alkaline Phosphatase 53 U/L (46-116); Anion Gap 8.8 mmol/L (3-11); BUN 10 mg/dL (7-18); Bilirubin, Total 0.6 mg/dL (0.2-1.0); CO2 28.2 mmol/L (21.0-32.0); CREATININE 0.8 mg/dL (0.55-1.02); Calcium 9.5 mg/dL (8.5-10.1); Chloride 104 mmol/L (98-107); FREE T4 1.29 ng/dL (0.76-1.46); Glucose 73 mg/dL (74-106); Potassium 4.2 mmol/L (3.5-5.1); Sodium 141 mmol/L (136-145); Total Protein 7.2 g/dL (6.4-8.2)
[2021-09-28 14:05] LABS: Calculated LDL 70 mg/dL (<100); Cholesterol 128 mg/dL (<200); HDL Cholesterol 45 mg/dL (40-60); Triglyceride 68 mg/dL (<150)
== END 2021-09-27 03:02 | disposition home or self-care (01) ==
LOC: LBO 03:01
PROVIDERS: PCP Nurse Practitioner Family; Visit Provider Nurse Practitioner Family
DX: E11.9 Type 2 diabetes mellitus without complications (principal); E66.9 Obesity, unspecified
CPT/HCPCS: 36415; 80053; 80061; 85027; 84439; 84443

== ENCOUNTER 2021-11-17 17:31 | Outpatient (REF) | payer BC, SELFPAY ==
[2021-11-17 21:06] LABS: COMMENT (LAB VIEW ONLY) 47.52 mg/dL; Microalb ug/mg Crea 4.4 ug/mg Cr
== END 2021-11-17 17:32 | disposition home or self-care (01) ==
LOC: LBN 17:31
PROVIDERS: PCP Nurse Practitioner Family; Visit Provider Family Medicine
DX: E11.9 Type 2 diabetes mellitus without complications (principal)
CPT/HCPCS: 82043; 82570

== ENCOUNTER 2022-07-03 08:13 | Outpatient (CLI) | payer BC, SELFPAY ==
[2022-07-05 14:10] LABS: TB Interpretation Negative (Negative); TB1 Ag minus Nil 0.03 IU/ml; TB2 Ag minus Nil 0.05 IU/mL
== END 2022-07-03 08:14 | disposition home or self-care (01) ==
LOC: LBO 08:14
PROVIDERS: PCP Nurse Practitioner Family; Visit Provider Nurse Practitioner Family
DX: L40.8 Other psoriasis (principal)
CPT/HCPCS: 36415; 86480

== ENCOUNTER 2022-08-16 01:27 | Outpatient (CLI) | payer BC, SELFPAY ==
[2022-08-16 12:29] LABS: Abs Immature Grans 0.02 10^3/uL (0.0-0.06); Absolute Basophil Count 0.05 10^3/uL (0.0-0.2); Absolute Eosinophil Count 0.45 10^3/uL (0.0-0.7); Absolute Lymphocyte Count 1.83 10^3/uL (1.2-3.4); Absolute Monocyte Count 0.61 10^3/uL (0.1-0.8); Absolute Neutrophil Count 4.34 10^3/uL (1.2-6.7); Basophils % 0.7; Eosinophils % 6.2; HCT 38.7 % (36.0-46.0); HGB 12.4 g/dL (11.2-15.7); Immature Grans % 0.3; Lymphocytes % 25.1; MCV 90 fL (80-95); MPV 11.6 fL (8.0-11.0); Monocytes % 8.4; Neutrophils % 59.3; Platelet Count 288 10^3/uL (130-400); RBC 4.28 10^6/uL (3.93-5.22); RDW 13.2 % (11.7-14.6); RDW-SD 42.9 fL
[2022-08-16 13:02] LABS: Hemoglobin A1C 7.1 % (<5.7)
[2022-08-16 13:06] LABS: ALT 29 U/L (14-59); AST 18 U/L (15-37); Albumin 3.5 g/dL (3.4-5.0); Alkaline Phosphatase 60 U/L (46-116); Anion Gap 9.8 mmol/L (3-11); BUN 9 mg/dL (7-18); Bilirubin, Total 0.5 mg/dL (0.2-1.0); CO2 28.2 mmol/L (21.0-32.0); CREATININE 0.8 mg/dL (0.55-1.02); Calcium 9.4 mg/dL (8.5-10.1); Calculated LDL 63 mg/dL (<100); Chloride 103 mmol/L (98-107); Cholesterol 124 mg/dL (<200); Estimated GFR 83.78 (mL/min/1.73m2); Glucose 94 mg/dL (74-106); HDL Cholesterol 50 mg/dL (40-60); Potassium 3.7 mmol/L (3.5-5.1); Sodium 141 mmol/L (136-145); TSH 3.35 uIU/mL (0.36-3.74); Total Protein 7.1 g/dL (6.4-8.2); Triglyceride 57 mg/dL (<150)
[2022-08-16 13:27] LABS: FREE T4 1.19 ng/dL (0.76-1.46)
== END 2022-08-16 01:28 | disposition home or self-care (01) ==
LOC: LOS 01:27
PROVIDERS: PCP Nurse Practitioner Family; Visit Provider Nurse Practitioner Family
DX: E03.9 Hypothyroidism, unspecified (principal); E11.319 Type 2 diabetes mellitus with unspecified diabetic retinopathy without macular edema; E78.5 Hyperlipidemia, unspecified; L40.8 Other psoriasis
CPT/HCPCS: 36415; 80053; 80061; 83036; 84439; 84443; 85025

== ENCOUNTER 2023-09-16 05:29 | Outpatient (CLI) | payer BC, SELFPAY ==
[2023-09-16 07:58] LABS: Hemoglobin A1C 7.3 % (<5.7)
[2023-09-16 08:02] LABS: ALT 32 U/L (14-59); AST 15 U/L (15-37); Albumin 3.3 g/dL (3.4-5.0); Alkaline Phosphatase 61 U/L (46-116); Anion Gap 7.1 mmol/L (3-11); BUN 12 mg/dL (7-18); Bilirubin, Total 0.5 mg/dL (0.2-1.0); CO2 29.9 mmol/L (21.0-32.0); CREATININE 0.7 mg/dL (0.55-1.02); Calcium 9.1 mg/dL (8.5-10.1); Chloride 108 mmol/L (98-107); Estimated GFR 97.72 (mL/min/1.73m2); Glucose 131 mg/dL (74-106); Potassium 3.9 mmol/L (3.5-5.1); Sodium 145 mmol/L (136-145); TSH (W/Ref FT4) 1.75 uIU/mL (0.36-3.74); Total Protein 6.5 g/dL (6.4-8.2)
== END 2023-09-16 05:30 | disposition home or self-care (01) ==
LOC: LBO 05:29
PROVIDERS: PCP Nurse Practitioner Family; Visit Provider Nurse Practitioner Family
DX: Z00.00 Encounter for general adult medical examination without abnormal findings (principal)
CPT/HCPCS: 36415; 80053; 83036; 84443

== ENCOUNTER 2024-01-17 18:02 | Outpatient (REF) | payer BC, SELFPAY ==
[2024-01-17 17:10] LABS: COMMENT (LAB VIEW ONLY) 33.25 mg/dL
--- OUTSIDE RECORDS SUMMARY | 2024-01-17 18:03 | XMS_ITS | Encounter Summary ---
[facility] Organization [facility] [address] Care Team Providers Care Acoustics Teacher Name Role Phone Carolynn Wisdom CRYSTAL EVALUATOR Primary Care Provider Encounter Details Date Type Department Care Team (Latest Contact Info) Description 01/09/2024 Specialty [place] [phone] Jane Cannon [facility] Refill Coordination - 56 day recurrence (ustekinumab) for Dermatology Social History Tobacco Use Types Packs/Day Years Used Date Smoking Tobacco: Former Cigarettes 0.3 3 0 12/31/1986 - 12/31/1989 Smokeless Tobacco: Never Alcohol Use Standard Drinks/Week Comments Yes 3 (1 standard drink = 0.6 oz pur e alcohol) [facility] Inpatient Questions Answer Date Recorded Does Anyone Try to Keep You From Having Contact with Others or Doing Things Outside Your Home? no 10/19/2022 Feels Threatened by Someone no 09/30 Feels Unsafe at Home or Work/School no 10/19/2022 Physical Signs of Abuse Present no 10/19/2022 Sex and Gender Information Value Date Recorded Sex Assigned at Not on file Gender Identity Not on file Sexual Orientation Not on file documented as of this encounter Progress Notes * Jane Cannon [facility] - 01/09/2024 8:46 AM EDTSummary: Stelara Refill Clinical Management Plan: Refill Specialty Pharmacy Consultation; Jane Cannon [facility] Comprehensive Medication Management (CMM) Ms. Melinda L Sleath is a 63 y.o. (1960) female who was contacted in regard to a specialty medication refill reminder. The patient requested a refill of Stelara. A review of the medication therapy was performed. The medication was refilled as scheduled, and all medication related questions and concerns were addressed. The specialty pharmacy staff will follow up with the patient 5-7 days priorto next refill. Was a change made to the Care Plan: No Medication Therapy Recommendations No medication therapy recommendations to display Allergies and Drug intolerance: No Known Allergies Medication Reconciliation Discrepancies (compared to [facility] med list) No Review Flowsheet 01/09/2024 9:21 AM Assessment What is the name of the specialty medication you are refilling? Stellara Are you taking any new medications? No Any new medical conditions? No Any new allergies? No Any new side effects that are bothersome? No Any missed doses since your last fill? 0 How many doses do you have remaining on hand? 0 Would you like a pharmacist to reach out to you to answer any questions? No What date will you need this fill by? 01/18/2024 Adherence: Any missed doses? No Patient understands no changes to current drug regimen were made. Jane Cannon RPH 01/09/24 9:37 AM documented in this encounter Plan of Treatment Upcoming Encounters Date Type Department Care Team (Late st Contact Info) Description 02/01/2025 2:15 PM EDT Office Visit Dermatology at [facility] [address] [place] [address] Regina Rivas MD [facility] [place] [address] documented as of this encounter Goals Goal Patient Goal Type Associated Problems Recent Progress Patient-Stated? Author meal timing/food choices/ bariatric behaviors Lifestyle On track(2021 11:38 AM EDT) No Michelle Jaquez, CANDE Note: Work on eating more mindfully Try tracking, use baritastic - see how it goes Start your day with a protein rather than with a refined carbohydrate Meal timing: consider eating within an 8-10 hour eating window, nothing after dinner, avoid snacking will have formal RD visit for individualized dietary plan to address eating behaviors and timing/frequency of meals. Decrease processed food in favor of more whole foods Avoid or limit alcohol Avoid carbonation Some Bariatric behaviors to work on: Separate eating and drinking by 30 minutes Eat smaller meals and take 20-30 minutes to eat a meal-chew thoroughly and eat slowly and mindfully Eat sitting at the table Drink water throughout the day in sips, goal is 64 oz a day Eat protein first at each meal and eating episode stress management Lifestyle Not on track(2021 11:37 AM EDT) No Michelle Jaquez APRN Note: Mindfulness/deep breathing practice to reduce cortisol -try for at least 10 minutes a day sleep Lifestyle On track(2021 11:37 AM EDT) No Michelle Jaquez APRN Note: Continue to work with sleep at [facility] Goal 7 hours of sleep nightly. Recommend consistent sleep and wake times, avoid electronics within one hour of sleep time movement Lifestyle No Michelle Jaquez APRN Note: Exercise goal is 150 -300 min a week, prioritize self so you have time to exercise Recommend resistance training 3 times a week -can use therabands Nutrition - 02/27/22 Lifestyle On track(2021 11:38 AM EDT) No Yessy Jonas RD Note: Nutrition Goals: Establish consistent meal routine - 9/10am breakfast, 1pm lunch, 6/7pm dinner; Choose protein first at every eating event; avoid skipping meals Continue practicing bariatric drinking behaviors - Separate eating and drinking by 30 minutes, especially after meals; continue water intake to 48 ounces or more per day; eliminate carbonation and alcohol; limit caffeine to 8oz cup or less; Establish exercise routine - continue walking weekly, goal aerobic exercise 150 minutes per week and/or 10,000 steps per day; continue walking dog daily; add resistance exercise to routine - exercise bands, yoga, etc. documented as of this encounter Visit Diagnoses Not on filedocumented in this encounter Care Teams Acoustics Teacher Relationship Specialty Start Date End Date Carolynn Wisdom APRN [address] [place] [address] PCP - General Family Medicine 03/08/20 documented as of this encounter
--- OUTSIDE RECORDS SUMMARY | 2024-01-17 18:03 | XMS_ITS | Encounter Summary ---
Author Organization [facility] Address [facility] [place] [address] Care Team Providers Care Pick Remover Name Role Phone Carolynn Wisdom APRN Primary Care Provider Encounter Details Date Type Department Care Team (Latest Contact Info) Description 01/13/2024 Travel Social History Tobacco Use Types Packs/Day Years Used Date Smoking Tobacco: Former Cigarettes 0.3 3 0 12/31/1986 - 12/31/1989 Smokeless Tobacco: Never Alcohol Use Standard Drinks/Week Comments Yes 3 (1 standard drink = 0.6 oz pur e alcohol) [facility] Inpatient Questions Answer Date Recorded Does Anyone [...] on file documented as of this encounter Plan of Treatment Upcoming Encounters Date Type Department Care Team (Late st Contact Info) Description 02/01/2025 2:15 PM EDT Office Visit Dermatology at [facility] [address] [place] [phone] Regina Rivas MD [facility] DR [place] [address] documented as of this encounter Goals Goal Patient Goal Type Associated Problems Recent Progress Patient-Stated? Author meal timing/food choices/ bariatric behaviors Lifestyle On track(2021 11:38 AM EDT) Michelle Tai APRN Note: Work on eating more mindfully Try [...] on track(2021 11:37 AM EDT) No Michelle Jaquez, AIR ANTISUBMARINE OFFICER Note: Mindfulness/deep breathing practice to reduce cortisol -try for at least 10 minutes a day sleep Lifestyle On track(2021 11:37 AM EDT) Michelle Tai, ACNDE Note: Continue to work with sleep at [facility] Goal 7 hours of sleep nightly. Recommend consistent sleep and wake times, avoid electronics within one hour of sleep time movement Lifestyle No Michelle Jaquez, CANDE Note: Exercise goal is 150 -300 min a week, prioritize self so you have time to exercise Recommend resistance training 3 times a week -can use therabands Nutrition - 02/27/22 Lifestyle On track(2021 11:38 AM EDT) No Yessy Jonas, PJ Note: Nutrition Goals: Establish consistent meal routine [...] on filedocumented in this encounter Care Teams Pick Remover Relationship Specialty Start Date End Date Carolynn Wisdom APRN [address] [place] [address] PCP - General Family Medicine 03/08/20 documented as of this encounter
--- OUTSIDE RECORDS SUMMARY | 2024-01-17 18:03 | XMS_ITS | Encounter Summary ---
Author Organization [facility] Address [facility] [place] [address] Care Team Providers Care Bar Manager Name Role Phone Carolynn Wisdom CRUSHED STONE GRADER Primary Care Provider Encounter Details Date Type Department Care Team (Latest Contact Info) Description 12/02/2023 Specialty [place] [phone] Viridiana Lemus RPH Started Clinical Assessment - 10 month recurrence (ustekinumab) for Dermatology Social History Tobacco Use Types Packs/Day Years Used Date Smoking Tobacco: Former Cigarettes 0.3 3 0 12/31/1986 - 12/31/1989 Smokeless Tobacco: Never Alcohol Use Standard Drinks/Week Comments Yes 3 (1 standard drink = 0.6 oz pur e alcohol) [facility] Inpatient Questions Answer Date Recorded Does Anyone [...] 2:15 PM EDT Office Visit Dermatology at [facility] [address] [place] [phone] Regina Rivas MD [facility] DR [place] [address] documented as of this encounter Goals Goal Patient Goal Type Associated Problems Recent Progress Patient-Stated? Author meal timing/food choices/ bariatric behaviors Lifestyle On track(2021 11:38 AM EDT) No Michelle Jaquez APRN Note: Work on eating more mindfully [...] track(2021 11:37 AM EDT) No Michelle Jaquez, CANDE Note: Mindfulness/deep breathing practice to reduce cortisol -try for at least 10 minutes a day sleep Lifestyle On track(2021 11:37 AM EDT) No Michelle Jaquez APRN Note: Continue to work with sleep at [facility] Goal 7 hours of sleep nightly. [...] on filedocumented in this encounter Care Teams Bar Manager Relationship Specialty Start Date End Date Carolynn Wisdom APRN [address] [place] [address] PCP - General Family Medicine 03/08/20 documented as of this encounter
--- OUTSIDE RECORDS SUMMARY | 2024-01-17 18:03 | XMS_ITS | Encounter Summary ---
Author Organization [facility] Address [facility] [place] [address] Care Team Providers Care Research Greenhouse Supervisor Name Role Phone Carolynn Wisdom WOODWINDS TEACHER Primary Care Provider Encounter Details Date Type Department Care Team (Latest Contact Info) Description 01/14/2024 Specialty [place] [phone] [facility] Start[facility] Clinical Assessment - 10 month recurrence (ustekinumab) for Dermatology Social History Tobacco Use Types Packs/Day Years Used Date Smoking Tobacco: Former Cigarettes 0.3 3 0 12/31/1986 - 12/31/1989 Smokeless Tobacco: Never Alcohol Use Standard Drinks/Week Comments Yes 3 (1 standard drink = 0.6 oz pur e alcohol) [facility] Inpatient Questions Answer Date Recorded Does Anyone [...] 2:15 PM EDT Office Visit Dermatology at [facility] [address] [place] [phone] Regina Rivas MD [facility] [place] [address] documented as of this encounter Goals Goal [...] Lifestyle On track(2021 11:37 AM EDT) Michelle Tai APRN Note: Continue to work with sleep at [facility] Goal 7 hours of [...] on filedocumented in this encounter Care Teams Research Greenhouse Supervisor Relationship Specialty Start Date End Date Carolynn Wisdom APRN [address] [place] [address] PCP - General Family Medicine 03/08/20 documented as of this encounter
--- OUTSIDE RECORDS SUMMARY | 2024-01-17 18:03 | XMS_ITS | Encounter Summary ---
Author Organization [facility] Address [facility] [place] [address] Care Team Providers Care Astronomy Professor Name Role Phone Carolynn Wisdom PRINTER ASSISTANT Primary Care Provider Reason for Visit * Reason Comments Psoriasis Encounter Details Date Type Department Care Team (Late st Contact Info) Description 01/13/2024 3:15 PM EDT Office Visit Dermatology at [facility] [address] [place] [address] Regina Rivas MD [facility] [place] [address] Inverse psoriasis; High risk medication use Social History Tobacco Use Types Packs/Day Years [...] as of this encounter Progress Notes * Regina Rivas MD - 01/13/2024 3:15 PM EDT Images from the original note were not included. DEPARTMENT OF DERMATOLOGY Medical Dermatology Clinic Provider: Reigna Rivas MD Patient's preferred name Melinda Preferred contact method for results [x]Phone []myD-H []Letter Detailed phone message OK? Yes Are there any other people with whom we may discuss your care? 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 year old. Patient returns to clinic today for psoriasis follow up and today she reports that she is overall doing well on the Stelara every 10weeks, no side effects and no injection site reactions. Her joints are doing well overall and are stable, does have some enlargement on the fingers and gets stiff near time of injection. Has been using topicals more frequently in the genital area near time of injection. She also notes that near time of injection she gets very itchy. Does note areas on the lower legs, question allergic contact reaction to hiking boots/socks. Last visit at [facility] Derm: 10/01/2022 Last visit with this provider: Visit date not found Medications: Reviewed in eD-H Allergies: Reviewed in eD-H Skin Examination: Focused skin examination of the lower legs was normal with the exception of the findings below Assessment/Plan # Inverse Psoriasis, improving - not examined, pt reports it is clear today. - Previously treated with Humira but was not well tolerated, she has been tolerating the Stelara well at this point. Injecting every 10 weeks with improvement. -S/p punch bx 11/06/20 showing psoriasiform dermatitis PLAN: - Continue Rx: Calcipotriene 0.005% cream apply to affected areas BID during the week , we will tryto get Rx: Protopic ointment covered to replace the calcipotriene on the weekdays - Use Rx: Clobetasol 0.05% ointment use BID on weekends only -- Recommended moisturizing dry areas with plain vaseline -- Continue Rx: Clobetasol solution Apply topically to the scalp twice a day for two weeks then take a week off and repeat - Continue Rx: Stelara 90mg SC Q10 weeks - Recommended T-nghia shampoo alternating with regular shampoo - Labs today CBC, CMP, and Quantiferon Gold # Favor allergic contact dermatitis vs capillaritis- erythematous patches in linear distribution onlower anterior shins (from where boots/socks hit?) - can use clobetasol if itching - try switching back to previously tolerated soap RTC: 1 yr for psoriasis f/u []Note routed to escrow secretary []Recall has been placed in scheduling system [x]Appointment scheduled at checkout Scribe attestation: Gretel Tucker RN who has performed the documentation for this encounter in the presence of and acting as a scribe for Regina Rivas MD. I performed the above scribed service and agree with the accuracy of the documentation in this encounter. Reviewed and signed by: Regina Rivas MD Dermatology [facility] documented in this encounter Plan of Treatment Upcoming Encounters Date Type Department Care Team (Late st Contact Info) Description 02/01/2025 2:15 PM EDT Office Visit Dermatology at [facility] [address] [place] [phone] Regina Rivas MD [facility] [place] [address] Scheduled Orders Name Type Priority Associated Diagnoses Orde r Schedule CBC (with Diff) Lab Routine High risk medication use Expected: 01/13/2024, Expires: 07/14/2024 Comprehensive metabolic panel (non-fasting) Lab Routine High risk medication use Expected: 01/13/2024, Expires: 07/14/2024 QuantiFERON-TB Gold Lab Routine High risk medication use Expected: 01/13/2024, Expires: 07/14/2024 documented as of this encounter Goals Goal [...] Note: Continue to work with sleep at [facility] Goal 7 hours of sleep nightly. Recommend [...] documented as of this encounter Visit Diagnoses Diagnosis Inverse psoriasis Other psoriasis High risk medication use Encounter for long-term (current) use of other medications documented in this encounter Care Teams Astronomy Professor Relationship Specialty Start Date End Date Carolynn Wisdom APRN [address] [place] [address] PCP - General Family Medicine 03/08/20 documented as of this encounter
--- OUTSIDE RECORDS SUMMARY | 2024-01-17 18:03 | XMS_ITS | Clinical Summary ---
Author Organization [facility] Address [facility] [place] [address] Care Team Providers Care Instructional Systems Designer Name Role Phone Carolynn Wisdom CANDE Primary Care Provider Allergies No known active allergies Medications Medication Sig Dispensed Refills Start Date End Date Status triamcinolone (KENALOG) 0.1 % Cream as needed. 07/14/2020 Active clotrimazole (LOTRIMIN) 1 % Cream Apply topically. 07/13/2020 Active calcipotriene (Dovonex) 0.005 % CreamIndications:Inv erse psoriasis Apply to lesions on body twice a day M-F 120 g 12/16/2020 Active Additional Information Patient not taking.Reported on 07/11/2022 ketoconazole (NIZORAL) 2 % CreamIndications:Int ertrigo Apply topically to areas under the breast and in the groin once daily for 3 weeks. Then use a few times weekly for maintenance. 60 g 3 02/14/2021 Active Additional Information Patient not taking.Reported on 07/11/2022 levothyroxine (Synthroid) 50 mcg Tablet Take 50 mcg by mouth daily. 05/16/2021 Active metFORMIN (Glucophage) 500 mg Tablet Take 1,000 mg by mouth 2 times daily. 05/18/2021 Active rosuvastatin (Crestor) 5 mg Tablet Take 2.5 mg by mouth daily. 04/12/2021 Active clobetasoL (TEMOVATE) 0.05 % SolutionIndications: Inverse psoriasis Apply topically to the scalp once daily for 2 weeks then take a week off and then repeat as needed 50 mL 1 06/08/2021 Active Additional Information Patient not taking.Reported on 07/11/2022 BLOOD SUGAR DIAGNOSTIC, DISC MISC by NOT APPLICABLE route. 03/18/2020 Active lancets Misc by NOT APPLICABLE route. 03/18/2020 Active Blood-Glucose Meter Misc by NOT APPLICABLE route. 03/18/2020 Active clobetasoL (Temovate) 0.05 % OintmentIndications: Inverse psoriasis Apply topically twice a day on weekends, avoid face. 60 g 08/18/2021 Active Additional Information Patient not taking.Reported on 07/11/2022 tacrolimus (Protopic) 0.1 % OintmentIndications: Inverse psoriasis Apply to areas of psoriasis twice daily on weekdays 100 g 3 08/18/2021 Active Additional Information Patient not taking.Reported on 07/11/2022 BD Ultra-Fine Mini Pen Needle 31 gauge x 3/16 Needle UES WITH LANTUS ONCE A DAY 06/26/2022 Active nystatin-triamcinolo ne (MYCOLOG II) Cream APPLY TO AFFECTED AREA(S) TWO TIMES A DAY 05/30/2022 Active ondansetron ODT (Zofran-ODT) 4 mg disintegrating tablet Take 1 tablet by mouth every 8 hours as needed for Nausea. 20 tablet 10/20/2022 Active acetaminophen (Tylenol) 500 mg tablet Take 2 tablets by mouth every 6 hours. 30 tablet 10/20/2022 Active oxyCODONE (Roxicodone) 5 mg tablet Take 1 tablet by mouth every 4 hours as needed for Pain. 12 tablet 10/20/2022 Active ustekinumab (Stelara) 90 mg/mL syringe injection Inject 1 mL subcutaneously Every 8 Weeks. 1 mL 2 12/02/2023 Active Active Problems Problem Noted Date Diagnosed Date Metabolic syndrome 10/19/2022 HEATHER (obstructive sleep apnea) 07/11/2022 Hyperlipidemia 08/08/2021 Inverse psoriasis 08/08/2021 Migraine headache with aura 08/08/2021 Subclinical hypothyroidism 08/08/2021 Transient vision disturbance of left eye 022 Type 2 diabetes mellitus 08/08/2021 Resolved Problems Problem Noted Date Diagnosed Date Resolved Date Class 2 severe obesity due t o excess calories with serious comorbidity and body mass index (BMI) of 38.0 to 38.9 in adult 08/08/2021 3 Encounters Date Type Department Care Team Description 01/14/2024 Specialty [place] [phone] Christin Connors V [facility] Started Clinical Assessment - 10 month recurrence (ustekinumab) for Dermatology 01/13/2024 3:15 PM EDT Office Visit Dermatology at [facility] [address] [place] [phone] Regina Rivas MD Inverse psoriasis; High risk medication use 01/13/2024 Travel 01/09/2024 Specialty [place] [address] Jane Cannon [facility] Refill Coordination - 56 day recurrence (ustekinumab) for Dermatology 12/02/2023 [place]ty [place] [address] Viridiana Lemus [facility] Started Clinical Assessment - 10 month recurrence (ustekinumab) for Dermatology 12/02/2023 Refill Dermatology at [facility] [address] [place] [phone] Lisa Vasquez MD from Last 3 Months Family History Medical History Relation Comments Type 2 Diabetes Brother Sleep Apnea Daughter Heart Disease Father Cancer Maternal Grandfather Diabetes Maternal Grandfather Hyperlipidemia Mother Diabetes Paternal Grandmother Breast Cancer Neg Hx Relation Status Comments Brother Alive Daughter Alive Father Alive Maternal Grandfather Maternal Grandmother Mother Alive Paternal Grandfather Paternal Grandmother Sister Alive Social History Tobacco Use Types Packs/Day Years Used Date Smoking Tobacco: Former Cigarettes 0.3 3 0 12/31/1986 - 12/31/1989 Smokeless Tobacco: Never Alcohol Use Standard Drinks/Week Comments Yes 3 (1 standard drink = 0.6 oz pur e alcohol) [facility] Inpatient Questions Answer Date Recorded Does Anyone [...] on file Sexual Orientation Not on file Last Filed Vital Signs Vital Sign Reading Time Taken Comments Blood Pressure 115/69 02/15/2023 12:27 PM EDT Pulse 50 02/15/2023 12:27 PM EDT Temperature 36.8 ??C (98.2 ??F) 10/21/2022 6:22 AM ED T Respiratory Rate 16 02/15/2023 12:27 PM EDT Oxygen Saturation 100% 02/15/2023 12:27 PM EDT Inhaled Oxygen Concentration - - Weight 81.3 kg (179 lb 3.2 oz) 02/15/2023 12:27 PM EDT Height 162.6 cm (5' 4) 02/15/2023 12:27 PM EDT Body Mass Index 30.76 02/15/2023 12:27 PM EDT Plan of Treatment Upcoming Encounters Date Type Department Care Team (Late st Contact Info) Description 02/01/2025 2:15 PM EDT Office Visit Dermatology at [facility] [address] [place] [address] Regina Rivas MD [facility] [place] [address] Health Maintenance Due Date Last Done Comments CT Colonography 1961 Colonoscopy 1961 Colorectal Cancer Screening 1961 FIT DNA 1961 FIT 1961 Sigmoidoscopy (10 year) with FIT yearly 1961 Sigmoidoscopy 1961 Pneumococcal Vaccine: At-Ris k 5-64yrs (1 of 2 - PCV) 1967 DM Hemoglobin A1c 1971 DM Opthalmology Exam 1971 DM Urine Microalbumin yearly 1971 HIV screen 1979 Tdap adult 02/14/1980 Tetanus vaccine 02/14/1980 HPV test 1991 PAP Smear 1991 Breast Cancer Share Decision Needed 2001 Zoster vaccine (1 of 2) 2011 Advance Directive 02/14/2016 Covid-19 Vaccine ( - 2022-2 4 season) 2023 DM Creatinine yearly 02/16/2024 02/15/2023, 10/20/2022, 10/03/2022, Additional history exists Influenza (Flu) vaccine (1 o f 1 - Influenza standard series) 03/01/2024 Breast Cancer screening 06/18/2025 06/18/20 23, 05/23/2022, 05/22/2021, Additional history exists Hepatitis C Screening Completed 11/16/2020 Goals Goal Patient Goal Type Associated Problems [...] Lifestyle Not on track(2021 11:37 AM EDT) Michelle Tai APRN Note: Mindfulness/deep breathing practice to reduce cortisol -try for at least 10 minutes a day sleep Lifestyle On track(2021 11:37 AM EDT) Mcihelle aTi APRN Note: Continue to work with sleep at [facility] Goal 7 hours of sleep nightly. Recommend consistent sleep and wake times, avoid electronics within one hour of sleep time movement Lifestyle No Michelle Jaquez APRN Note: Exercise goal is 150 -300 min a week, prioritize self so you have time to exercise Recommend resistance training 3 times a week -can use therabands Nutrition - 02/27/22 Lifestyle On track(2021 11:38 AM EDT) Yessy Finn RD Note: Nutrition Goals: Establish consistent meal [...] to routine - exercise bands, yoga, etc. Procedures Procedure Name Priority Date/Time Associated Diagnosis Comments MAMMO SCREENING CAD AND JORGE BILATERAL Routine 06/18/2023 2:09 PM EST Visit for screening mammogram COMPREHENSIVE METABOLIC PANEL (NON-FASTING) Routine 02/15/2023 12:24 PM EDT S/P bariatric surgery Disorder of iron metabolism HC HEPATITIS C ANTIBODY Routine 11/16/2020 11:11 AM EDT High risk medication use from Last 3 Months or Most Recently Relevant to Health Maintenance Results * Mammo Screening Cad and Jorge Bilateral (06/18/2023 2:09 PM EST) Anatomical Region Laterality Modality Breast Bilateral Mammography Impressions 06/19/2023 7:28 AM EST No mammographic evidence of malignancy, Routine annual screening mammography is recommended. FINAL ASSESSMENT: BI-RADS Category 2: Benign Findings * ??Regular screening mammograms starting at age 40 reduces the risk of from breast cancer. * ??Yearly screening provides the most benefit. Women should discuss with their provider their preferred breast cancer screening schedule. * ??Women should report any breast changes to a health care provider right away. * ??Some women, because of their family history, a genetic tendency, or other factors, should be screened with annual breast MRI as well as with mammograms. Thank you for letting us participate in the care of this patient. ??If you are a health care provider and have any questions regarding this report, please contact the number below. ??For patients who have questions please contact the health ostomy care nurse that requested your imaging first. ? Narrative 06/19/2023 7:28 AM EST EXAMINATION: MAMMO SCREENING CAD AND JORGE BILATERAL REASON FOR EXAM: Screening TECHNIQUE: CC and MLO views were obtained of BOTH breasts. 2D and 3D tomosynthesis images were obtained. Computer aided detection was used. COMPARISON: Comparison was made to the prior relevant examinations. BREAST DENSITY: There are scattered areas of fibroglandular density. FINDINGS: There are scattered calcifications and bilateral vascular calcifications. There are no suspicious microcalcifications, masses, or areas of distortion. Stable appearance. Carolynn Adjovu [facility]ER IMG MAMMO ORDERABLE S * Comprehensive metabolic panel (non-fasting) (02/15/2023 12:24 PM EDT) Glucose Lvl 151 65 - 199 mg/dL [facility] Comment:Diabetes: >=200 mg/d L plus symptoms BUN 8 8 - 18 mg/dL [facility] Creatinine 0.70 0.70 - 1.20 mg/dL [facility] Sodium 143 135 - 145 mmol/L [facility] Potassium 3.6 3.5 - 5.0 mmol/L [facility] Comment: Please note: ??Patients with WBC >100,000 may have falsely elevated Potassium levels. ??For accurate Potassium quantification in these patients send serum separator tube (gold top) for subsequent determinations. ??Contact the Clinical Chemistry Laboratory if there are any questions. Chloride 106 98 - 107 mmol/L [facility] CO2 25 22 - 31 mmol/L [facility] Anion Gap 12 5 - 15 mmol/L [facility] Calcium 9.6 8.5 - 10.5 mg/dL [facility] Total Protein 6.8 6.1 - 8.0 g/dL [facility] Albumin 4.4 3.2 - 5.2 g/dL [facility] AST 19 0 - 30 unit/L [facility] ALT 17 0 - 30 unit/L [facility] Alk Phos 65 35 - 105 unit/L [facility] Total Bilirubin 0.4 0.2 - 1.3 mg/dL [facility] Estimated GFR 98 >=60 mL/min/1. 73 m?? [facility] Comment: This patient's estimated GFR was calculated using the 2020 CKD-EPI equation. The estimated GFR can vary from the measured GFR by up to 30% in the absence of rapidly changing kidney function. Assessment of the estimated GFR is not appropriate when creatinine concentrations are rapidly changing. For clinical situations in which a more precise estimate of GFR is necessary, consider alternative methods of GFR estimation such as a 24-hour urine creatinine clearance. Assignment of CKD stage 1-5 for patients with an eGFR near the transition point between stages may be based on clinical assessment of muscle mass and symptoms in addition to eGFR. Blood 02/15/2023 12:2 4 PM EDT 02/15/2023 12:35 PM EDT Narrative Resulting Agency Comment Spec In Lab Krystin Sharpe [facility] CHEMISTRY ORDERABL ES [facility] [place] [address] * Hepatitis C Antibody (11/16/2020 11:11 AM EDT) Hepatitis C Ab Negative Negative [facility] Blood 11/16/2020 11:1 1 AM EDT 11/16/2020 12:49 PM EDT Narrative Resulting Agency Comment Spec In Lab Emmy Nava MD IMMUNOLOGY ORDERA KENDRA [facility] [place] [place] [address] from Last 3 Months or Most Recently Relevant to Health Maintenance Advance Directives * Attempt Cardiopulmonary Resuscitation - Inpatient (Latest Code Status on File) Date Activated Date Inactivated Comments 10/19/2022 1:54 PM 10/21/2022 4:28 PM Question Answer Comments Code Status decision made by: Patient Care Teams Instructional Systems Designer Relationship Specialty Start Date End Date Carolynn Wisdom APRN [address] [place] [address] PCP - General Family Medicine 03/08/20
--- OUTSIDE RECORDS SUMMARY | 2024-01-17 18:04 | XMS_ITS | Encounter Summary ---
Author Organization [facility] Address [facility] [place] [address] Care Team Providers Care Senior Quality Analyst Name Role Phone Carolynn Wisdom BUSHEL WORKER Primary Care Provider Encounter Details Date Type Department Care Team (Late st Contact Info) Description 01/31/2023 Refill Dermatology at [facility] [address] [place] [address] Lisa Vasquez MD [facility] [place] [address] Social History Tobacco Use Types Packs/Day Years [...] EDT Office Visit Dermatology at [facility] [address] [place] [address] Regina Rivas MD [facility] [place] [address] documented as of this encounter Goals Goal [...] Note: Continue to work with sleep at [facility] Goal 7 hours of sleep nightly. Recommend consistent sleep and wake times, avoid electronics within one hour of sleep time movement Lifestyle No Michelle Jaquez APRN Note: Exercise goal is 150 -300 min a week, prioritize self so you have time to exercise Recommend resistance training 3 times a week -can use therabands Nutrition - 02/27/22 Lifestyle On track(05/19/ 2022 11:38 AM EDT) Yessy Finn RD Note: [...] on filedocumented in this encounter Care Teams Senior Quality Analyst Relationship Specialty Start Date End Date Carolynn Wisdom APRN [address] [place] [address] PCP - General Family Medicine 03/08/20 documented as of this encounter
--- OUTSIDE RECORDS SUMMARY | 2024-01-17 18:04 | XMS_ITS | Encounter Summary ---
Author Organization [facility] Address [facility] [place] [address] Care Team Providers Care Director Of Category Management Name Role Phone MelodieCarolynn judd CANDE Primary Care Provider [phone] Reason for Visit * Reason Comments Follow-up Encounter Details Date Type Department Care Team (Late st Contact Info) Description 02/15/2023 12:30 PM EDT Office Visit General Surgery at [facility], operated [place] [address] Marjorie Holman, FUEL CELL REPAIRER [facility] [place] [address] Mirian Horowitz, RD [facility] [address] S/P bariatric surgery; Disorder of iron metabolism; Post-resection malabsorption; Adult BMI 30.0-30.9 kg/sq m; HEATHER (obstructive sleep apnea) Social History Tobacco Use Types Packs/Day Years Used Date Smoking Tobacco: Former Cigarettes 0.3 3 0 12/31/1986 - 12/31/1989 Smokeless Tobacco: Never Alcohol Use Standard Drinks/Week Comments Yes 3 (1 standard drink = 0.6 oz pur e alcohol) [facility] Inpatient Questions Answer Date Recorded Does Anyone [...] on file documented as of this encounter Last Filed Vital Signs Vital Sign Reading Time Taken Comments Blood Pressure 115/69 02/15/2023 12:27 PM EDT Pulse 50 02/15/2023 12:27 PM EDT Temperature - - Respiratory Rate 16 02/15/2023 12:27 PM EDT Oxygen Saturation 100% 02/15/2023 12:27 PM EDT Inhaled Oxygen Concentration - - Weight 81.3 kg (179 lb 3.2 oz) 02/15/2023 12:27 PM EDT Height 162.6 cm (5' 4) 02/15/2023 12:27 PM EDT Body Mass Index 30.76 02/15/2023 12:27 PM EDT documented in this encounter Patient Instructions * Patient Instructions* Marjorie Holman APRN - 02/15/2023 12:30 PM EDT BSP it support engineer Aisha [phone] and Anitha [phone] Dietitians: [phone] Surgeons/ nurse practitioners: [phone] Nurse line: [phone] Dear Melinda, Please see your electronic medical record note from today for details we discussed at your visit. Below is some additional general information that you may find helpful. Testing: It would be helpful if you can have your lab work drawn a couple days before your visit l[facility] facility so the results are available at the time of your follow up visit. If you have labwork done by your primary healthcare administration intern before that date, please have a copy sent to the Bariatric Surgery Program. Please call/send my message if you have not heard from us within 2 weeks of having labs work done. Here's the link to [facility] Lab hours and locations: [email or web address] Next visit: Follow up visits are done at 4 months and 12 months after surgery and yearly thereafter. Some patients are evaluated on a more frequent basis. Please call [phone] if you do not receive an appointment by 3-4 weeks prior to the expected visit. Vitamins/Nutrition/Activity Recommendations: Please see your visit note for personalized recommendations General Vitamin recommendations: Multivitamins with minerals twice daily- needs to be an under 50 multivitamin that contains iron. Vitamin B12 500 mcg by mouth once daily Calcium citrate 500-600 mg with Vitamin D 400 units twice daily (600 mg in AM and 600 mg in PM- 2 pills twice a day) (or 1 chewable twice a day) Iron supplement: as specified in today's visit Vitamin D: as specified in today's visit General Nutrition recommendations: 1,000-1,200 calories per day (300 calories per meal, 100 calories per snack, 1-2 snacks per day) 60 grams of protein per day (20 grams per meal) 48-64 oz of non-caloric and hydrating fluids per day (6-8, 8 oz cups) Do not drink with meals- pushes food through more quickly, can cause upset stomach Activity: Aim for 30 minutes of exercise daily, 5 days a week of both cardio and strength training exercises. Skinfold care: Cleanse area with soap and water. Blow dry area on low setting with dining chair seat cushion trimmer. Avoid excessive heat and/or sweating as friction and moisture can exacerbate disease. Try OTC Dove clinical strength anti perspirant to affected areas nightly or an absorbent powder such as Gold Melchor and Desinex Apply cotton strips (such as strips from old sheets) or larger size cotton underwear folded beneathskin folds to act as a wick. Do not apply michelle cloth toweling which can cause further irritation Try combination of over the counter hydrocortisone cream with over the counter antifungal cream such as lotrimin twice a day for 2 weeks. If your symptoms do not improve you may require prescription of anti-fungal cream/powder. Follow up with PCP if symptoms worsen/fail to improve with above strategies. Constipation: Increase fiber, fluids and fitness. Yerba Prima is a fiber supplement that comes in capsule form. Additionally, consider trying 1 capful daily of miralax daily (preferably at night) with a goal of at least 1 BM per day. You can increase the dose as needed every 2-3 days (by adding on 1 capful either morning or night) without safety concerns, noting that individual tolerance becomes limited by loose stools and bloating with doses higher than 2 capfuls twice daily. Please call if you do not have a BM after 3 days. On days with loose stools, we recommend reducing miralax to 1/2 capful daily but continue to take miralax every day Nausea: Common causes for nausea post bariatric surgery are: Eating too fast, eating too much, drinking with meals, or not chewing well enough. Be sure to eat slowly and chew food well. Take at least30 minutes or more to eat a meal. Call if symptoms worsen, fail to improve, or if you have difficulty keeping food or fluid down. Alcohol: is not recommended for at least 6-12 months after surgery. Alcohol is absorbed much fasterand stays in your system much longer post bariatric surgery and as a result there is an increase risk of alcohol misuse/abuse after bariatric surgery. It should be used sparingly, no more than one drink per occasion, no more than 2 drinks a week. Alcohol is toxic to the liver, a source of empty calories, it can cause ulcers, vitamin and mineral deficiencies, as well as impair digestion and absorption of nutrients. Call or follow up with your therapist or primary care provider if you are struggling or think your alcohol intake is a problem. control for women of child bearing age: is recommended for at least 18-24 months after surgery. f non-prescribed drugs and treet drugs is unsafe Anti-inflammatory medications such as Ibuprofen (Advil), Aleve (Naproxen), Excedrin, Margot-Wilbur should be used sparingly after gastric bypass, since they increase the risk of ulcer and bleeding. A bone mineral density scan (DEXA) is recommended every 2 years after bariatric surgery. Please schedule this study through your primary care providers office. Hair Loss: is associated with rapid weight loss and is seen approximately 3 to 6 months after surgery and can last 3 to 6 months. It is almost always temporary. Eating a healthy diet with 60 grams ofprotein per day and taking your multivitamin with minerals will help. Sleep Apnea: If you have a history of sleep apnea and have a CPAP/BiPAP, please be sure to follow up with the sleep center to confirm your pressures and determine if continued use of CPAP/BiPAP is recommended. Potential lifetime risks of gastric bypass include risk of ulcer, which is increased with alcohol and antiinflammatory medications and internal hernia (less than 5%), which may be increased with higher than predicted weight loss Potential lifetime risks of sleeve gastrectomy include developed heartburn or severe reflux Call us: If you have concerns. If you have unexplained abdominal pain. if you see blood in your stool or vomit blood If you have prolonged vomiting Post Surgery Support Group: Our post surgery support group meets at [facility] on the first Saturday of every month from 1:00 PM-2:00 PM. You can attend online or in person. Use the following link to attend online: [email or web address] Nutrition and Activity apps- Baritastic, My Fitness Pal, Lose It, My Plate Internet resources: www.Tuxebo www.Satomi www.Spontaneously www.Ommven.[place] [employer]/blog [facility] facebook page: [email or web address].[email or web address] [email or web address]/[facility] Books & Magazines: - Recipes for Life After Weight Loss Surgery by Ivana Oscar - Shrink Yourself by Dr Crispin Loera - Eating Well - www.Mixer Labs.[place] [employer] - Cooking Light- www.cookinglight.[place] [employer] Anxiety: The Happiness Trap by Scott Mrianda The Mindfulness and acceptance workbook for anxiety By Jewel Rdz. Mindful eating: What are you Hungry For? By Landen Dotosn The Mindful Diet by Tatum Leon and the [facility] group. Emotional eating: End Emotional Eating by Mirian Callejas Calming the Emotional Storm Paula Snider documented in this encounter Progress Notes * Mirian Horowitz RD - 02/15/2023 12:30 PM EDT Bariatric Surgery Program Nutrition Progress Note Encounter Type: follow up SUBJECTIVE: Topics Discussed/Patient Concerns: + hair loss. Thinks protein intake is low. No insulin since surgery. FBS 118-148. Mostly in the 120-130s. Would like to come off metformin. A few instances of low BS due to going too long without eating. 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 2 children. Social support: son, immediate family Hobbies: horse, recently restarted yoga, ski (downhill) Vision at 2 years post-op: improvement in overall health. wants to feel better, not feel so tired and depressed, wants to stop craving sugar, comfort foods. Wants to learn new ways to manage her emotions that don't involve food. Wants to get off medications Goal weight: 135# OBJECTIVE: Medical Hx: Class I obesity, HEATHER, Type 2 DM (dx 2014?), hyperlipidemia Date of Bariatric Surgery: 10/19/22 Type of Bariatric Surgery: Laparoscopic Parker-en-Y Gastric Bypass w/ Dr. Mckeon Weight History: Date Weight (lbs) HT BMI Comments Age 46 253# Highest Weight 08/10/21 225# Initial program weight 07/31/22 220# 64 37.7 1st pre-op visit 10/19/22 220# EWL % Surgery 11/09/22 199.8# 27% 34.8 3 weeks post-op 02/15/23 179.2# 49% 30.8 4 months post-op Bryant Body Weight (based on BMI of 25): 146# 30-70% Excess Weight Loss: 168-198#; 50% Excess Weight Loss: 183# MEDICATIONS: Vitamin/Mineral Supplements (reported by patient): Supplement Type Brand/Form Dosage/Amount Frequency Comments Multivitamin Bariatric 1 pill daily Calcium citrate chews 1 chew (500 mg) 3 x daily Ok to decrease to 2. Vitamin B12 Iron Vitamin D3 Food Allergies/Intolerances: pasta Tracking Intake: has Tabulous Cloud cindy 24-Hour Intake: occ makes a protein drink: 1/2 banana, 2 scoops protein powder, ice and milk Breakfast 1/2 bagel OR sm piece of wheat toast. Sometimes protein shake AM Snack Lunch [place] whole milk yogurt and fruit, maybe a couple Tbs granola PM Snack Dinner 3 steak fries and 2-3 oz beef HS Snack Protein/ grams per day: <60 g Hydrating fluids- oz/ day: 60+ oz. water Soda: None. ETOH: 1-2 x week juice glass with beer or wine. Avg 1x week. Caffeine: Coffee- 1 cup with splash of half and half Sweets: Meals per day: 3 In the past month, pt has vomited/regurgitated: vomited 1x since surgery- food intolerance. Constipation/Diarrhea: BM daily. Presurgery: Diarrhea- 2-3 x daily due to metformin. Multiple bouts of diarrhea from 6-8:30AM. Has imodium with her at all times. Brings a change of clothes everywhere she goes as she sometimes has leakage and does not know it. Exercise: Restarted horseback riding- 4-5 x week. Just competed in her first equine competition. 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 ASSESSMENT: Summary of Weight Loss: Melinda Goncalves returns for routine follow-up at 4 months s/p surgery. Her excess weight loss is at49%. She is tolerating the diet and meeting fluid goals. Advised alcohol is not recommended until at least 6 months post-op. Protein is on the low side; discussed strategies to increase. Reviewed vitamin and mineral supplements; labs pending. Advised hair loss is common at this point; goal to increase protein. NUTRITION INTERVENTION & MONITORING: Provided support/encouragement and reinforced importance of meeting nutritional goals. Increase protein at breakfast- have protein drink more often, 1/4 bagel with PB or a little lunch meat. Could try 1/2 bagel thin. Once able to meet protein needs, work to increase vegetable intake. Save starchy foods for last at meals. Keep up the great work meeting fluid goals. Reviewed vitamin and mineral supplement recommendations. Multivitamin with minerals- continue Bariatric Multivitamin 1 pill per day Calcium citrate 500 mg with vitamin D twice daily. (1 chew twice daily) Evaluation by nurse practitioner today. F/u in September 2023, sooner if requested. * Marjorie Holman APRN - 02/15/2023 12:30 PM EDT [place] [address] Reason for visit: Bariatric Surgery follow up visit Subjective: Melinda Goncalves is s/p s/p laparoscopic Parker-en-Y gastric bypass on 10/19/[address] Mckeon. , she presents today for 4 month post bariatric surgery follow up. Overall tolerating foods/fluids and trying to make sure she is meeting nutritional/fluid requirements, could do better with protein intake. Pt reports no difficulty swallowing, epigastric pain, or bloating. No N/V. BM are improving, daily tend to be loose d/t metformin. No longer taking PPI for ulcer prevent post surgery. No c/o GERD. Continues on Ursodiol for gallstone prevention. Reports being more active and having more energy. Current Supplements: Bariatric Multi-vitamin with minerals/iron daily Calcium citrate chews 3 x daily Interim Health: Patient reports health has been stable overall. No bariatric related surgeries, hospitalizations, or ED visits since the last visit. No kidney stones or atraumatic fractures. Pt follows with PCP/specialist for disease management and age specific screening. Pre-Bariatric Surgery Obesity related medical issues: Problem Baseline issue if checked Comments Diabetes/prediabetes/insulin resistance [x] Off Lantus and now just on metformin, Metabolic syndrome or PCOS [] HTN [] GERD [] Hyperlipidemia [x] On rosuvastatin HEATHER [x] Not using CPAP, sleeping well, no sx. Musculoskeletal issues [] Liver Disease [] Other [x] Psoriasis- has not started Stelara yet. Using multiple topicals Patient Active Problem List Diagnosis Code Hyperlipidemia E78.5 Inverse psoriasis L40.8 Migraine headache with aura G43.109 Subclinical hypothyroidism E03.8 Transient vision disturbance of left eye H53.9 Type 2 diabetes mellitus E11.9 Class 2 severe obesity due to excess calories with serious comorbidity and body mass index (BMI) of38.0 to 38.9 in adult E66.01, Z68.38 HEATHER (obstructive sleep apnea) G47.33 Metabolic syndrome E88.81 Review of Systems Constitutional: energy level is good , no c/o restless leg, no pica, + hair thinning/loss. Neuro: no c/o paresthesias. Some changes in memory (foggy) CV: no chest pain or palpitations. Pulm: denies SOB or cough. GI: as above ARCH SUPPORT MAKER: post menopausal Skin: + redundant skin arms/thighs. no c/o skin fold rashes. Health Habits: Tobacco/Nicotine use: quit years ago - none . ETOH use: 1-2x week. No NSAID use. Social History: Lives alone with her cats, dogs and horse. 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 2 adult children. Dietary history/ exericse/ activity level: See dietitian note from today's visit for complete dietary evaluation. Meds and Allergies reviewed. WT (lbs) BMI HT Highest wt Initial Pre-op visit 07/31/22 220 37.8 5'4 Post-op WT (lbs) BMI %EBW lost 11/09/22 199 34.8 27% 02/15/23 179 30.8 49% Objective: BP 115/69 (BP Location (NBP): Right arm) Pulse 50 Resp 16 Ht 162.6 cm (5' 4) Wt 81.3 kg (179 lb 3.2 oz) SpO2 100% BMI 30.76 kg/m?? Physical Exam General: Alert, pleasant, NAD, appears well. Abdomen: Soft, non-distended, non-tender. Well healed incisions. Respiratory: No increased work of breathing. Speaking in full sentences. No cough/wheeze witnessed. Skin: excess skin noted abdomen. Skin is warm and dry. No rash noted on exam today. Psychiatric: Normal mood and affect. Appropriate eye contact. Recent Results (from the past 72 hour(s)) PTH Result Value Ref Range PTH 28 15 - 65 pg/mL Iron and TIBC Result Value Ref Range Iron 60 30 - 150 mcg/dL TIBC 241 (L) 250 - 450 mcg/dL Iron Saturation 25 20 - 50 % Hemogram Result Value Ref Range WBC 8.6 4.0 - 9.5 x10(3)/mcL RBC 4.29 4.00 - 5.21 x10(6)/mcL Hemoglobin 12.6 11.7 - 15.5 g/dL Hematocrit 37.8 35.7 - 45.8 % MCV 88.1 82.6 - 94.4 fL MCH 29.4 27.1 - 32.0 pg MCHC 33.3 31.7 - 35.0 g/dL Platelets 261 145 - 357 x10(3)/mcL RDWSD 44.0 37.0 - 46.0 fL RDWCV 13.7 11.5 - 14.1 % MPV 12.0 7.6 - 12.9 fL nRBC % Auto 0.0 % nRBC Abs Auto 0.000 0.000 - 0.000 x10(3)/mcL Comprehensive metabolic panel (non-fasting) Result Value Ref Range Glucose Lvl 151 65 - 199 mg/dL BUN 8 8 - 18 mg/dL Creatinine 0.70 0.70 - 1.20 mg/dL Sodium 143 135 - 145 mmol/L Potassium 3.6 3.5 - 5.0 mmol/L Chloride 106 98 - 107 mmol/L CO2 25 22 - 31 mmol/L Anion Gap 12 5 - 15 mmol/L Calcium 9.6 8.5 - 10.5 mg/dL Total Protein 6.8 6.1 - 8.0 g/dL Albumin 4.4 3.2 - 5.2 g/dL AST 19 0 - 30 unit/L ALT 17 0 - 30 unit/L Alk Phos 65 35 - 105 unit/L Total Bilirubin 0.4 0.2 - 1.3 mg/dL Estimated GFR 98 >=60 mL/min/1.73 m?? Assessment 63 y.o. female 4 months s/p Parker-en-Y gastric bypass with 49 % of excess body weight lost. Plan: S/p bariatric surgery: Doing well from a bariatric surgery perspective, overall pleased with surgery outcome . Discussed dietary considerations and strategies for continued success . Reviewed importance of meeting nutritional/protein/fluid requirements, tracking food and food choices, pairing carbs with protein, being careful to avoid eating too fast, eating too much, drinking with meals, or not chewing well enough. Patient has met with senior web designer today, please see note for additional details/dietary evaluation. Advised that Ursodiol can be discontinued at 6 months post-operatively. Advised that hair loss due to rapid weight loss is typical for this early post- surgery time frame, will improve with time and adequate protein/calorie intake. Reviewed ETOH recommendations: No ETOH for 6-12 months after surgery, afterwhich if alcohol is consumed, it should be done cautiously and with decreased frequency. Limit to 1-2 drinks weekly. Discussed changes in ETOH absorption post bariatric surgery and concerns re: risk of ETOH misuse/abuse as well as increase risk of liver damage, ulcers/bleeding and potential of impairment of digestion and absorption of nutrients Pre surgery obesity related co-morbidities Sleep apnea: recommend follow up with sleep center to determine if CPAP can be discontinued or if settings need to be adjusted . Risk for vitamin deficiencies: Reviewed lab results as above. Still pending folate, Vit D, Vit B 1, Vit B 12. Will make additionalrecommendations once lab results are available. Reviewed recommended vitamin/mineral supplements- See RD note for additional details re: vitamin/mineral supplementation. Pt reminded that a bone mineral density scan (DEXA) is recommended every 2 years after bariatric surgery. RTC in 8 months for 1 year post bariatric surgery follow up visit, with labs. Call/rtc sooner prn with questions/concerns, unexplained abdominal pain, prolonged nausea, vomiting or inability to hydrate, questions or concerns. Bariatric Program Summary report is availabe for patient's review via e-DH I spent a total of 30 minutes associated with this encounter, including chart review, the patient encounter, and documentation. Marjorie Holman APRN RECOMMENDED BARIATRIC SURGERY PROGRAM POSTOPERATIVE FOLLOW-UP: Follow up: done at 4, 12 and yearly thereafter. High risk patients are evaluated on a more frequentbasis. *Typical Supplement recommendations: Multivitamin with minerals twice a day, B12 500 mcg once a day, calcium citrate 600 mg/400 units vitamin D twice a day, iron (ferrous fumarate, carbonyl iron taken with vitamin C 250 mg once every other day) for menstruating females or those with Iron Deficiency. Labwork: Hemogram, ferritin, iron (transferrin) saturation, iron, folate, B1, B12, D (25 hydroxy only), Intact PTH and comprehensive metabolic profile at 4, 12 months and yearly. If labwork is done by the primary healthcare administration intern: please send a copy to the Bariatric Surgery Program, General Surgery Clinic, [facility], or fax [phone] documented in this encounter Plan of Treatment Upcoming Encounters Date Type Department Care Team (Late st Contact Info) Description 02/01/2025 2:15 PM EDT Office Visit Dermatology at [place] [address] [place] [address] Regina Rivas MD [facility] [place] [address] documented as of this encounter Goals Goal [...] On track(2021 11:37 AM EDT) No Michelle Jaquez, CANDE Note: Continue to work with sleep at [facility] Goal 7 hours of sleep nightly. Recommend [...] as of this encounter Visit Diagnoses Diagnosis S/P bariatric surgery Bariatric surgery status Disorder of iron metabolism Other disorders of iron metabolism Post-resection malabsorption Other and unspecified postsurgical nonabsorption Adult BMI 30.0-30.9 kg/sq m Body Mass Index 30.0-30.9, adult HEATHER (obstructive sleep apnea) Obstructive sleep apnea (adult) (pediatric) documented in this encounter Care Teams Director Of Category Management Relationship Specialty Start Date End Date Carolynn Wisdom APRN [address] [place] [address] PCP - General Family Medicine 03/08/20 documented as of this encounter
--- OUTSIDE RECORDS SUMMARY | 2024-01-17 18:04 | XMS_ITS | Encounter Summary ---
Author Organization [facility] [place] [address] Care Team Providers Care Studio Couch Frame Builder Name Role Phone Carolynn Wisdom CONSTRUCTION EQUIPMENT MECHANIC HELPER Primary Care Provider Reason for Visit * Reason Comments Medication Management Patient Education Encounter Details Date Type Department Care Team (Late st Contact Info) Description 01/31/2023 Specialty [place] [address] Daylin Alba RPH Social History Tobacco Use Types Packs/Day Years Used Date Smoking Tobacco: Former Cigarettes 0.3 3 0 12/31/1986 - 12/31/1989 Smokeless Tobacco: Never Alcohol Use Standard Drinks/Week Comments Yes 3 (1 standard drink = 0.6 oz pur e alcohol) [facility] Inpatient Questions Answer Date Recorded Does Anyone [...] as of this encounter Progress Notes * Daylin Alba RPH - 01/31/2023 11:06 AM EDT Specialty Pharmacy Follow Up Consultation; Daylin Alba RPH Comprehensive Medication Management (CMM) Melinda Goncalves Diagnosis: Inverse Psoriasis Therapy Start Date: 06/20/21 Contact in person or via telephone:phone Ms. Melinda Goncalves is a 62 y.o. (1960) female who was contacted in regard to specialty medication. Spoke with patient regarding Stelara. A review of the medication therapy was performed. The medication was Refilled as scheduled, and all medication related questions and concerns were addressed. The specialty pharmacy staff will follow up with the patient 5-7 days prior to next refill. Is the patient willing to proceed with the Clinical Assessment? Yes Summary and Recommendations: Melinda Goncalves is a pleasant 62 y.o. female who was contacted for a consultation on Stelara. The patient was able to verbalize understanding of the directions, storage requirements, clinical rationale, and possible adverse events of the medication. Proper injection technique was reviewed including rotation of injection sites, storage, and safe disposal of injection device. Allergies, medications, and medical conditions were reviewed at length including review for possible contraindications andinteractions. The patient was informed of the variety of services that the Specialty Pharmacy will provide to them as one of our patients. Melinda states overall the Stelara has been effective in treating her psoriasis and usually has a flare up when is coming up due on her injection. She states that she has had a flare up for the last week and she uses topical treatments when this happens until she's due for her next injection. She says she has already discussed this with her provider but want to keep her at every 12 week injections. The specialty pharmacy will reach out again at the next refill. Clinic follow-up needed: no Allergies and Drug intolerance: No Known Allergies Problem List: Patient Active Problem List Diagnosis Code Hyperlipidemia E78.5 Inverse psoriasis L40.8 Migraine headache with aura G43.109 Subclinical hypothyroidism E03.8 Transient vision disturbance of left eye H53.9 Type 2 diabetes mellitus E11.9 Class 2 severe obesity due to excess calories with serious comorbidity and body mass index (BMI) of38.0 to 38.9 in adult E66.01, Z68.38 HEATHER (obstructive sleep apnea) G47.33 Metabolic syndrome E88.81 Special Dietary or Hydration Requirements: no Medication Reconciliation Discrepancies (compared to [facility] med list) yes - patient says she no longer uses insulin Medication List: Current Outpatient Medications Medication Sig Dispense Refill ondansetron ODT (Zofran-ODT) 4 mg disintegrating tablet Take 1 tablet by mouth every 8 hours as needed for Nausea. 20 tablet 0 ursodioL (Swathi 250) 250 mg tablet Take 1 tablet by mouth 2 times daily for 180 days. 60 tablet 5 acetaminophen (Tylenol) 500 mg tablet Take 2 tablets by mouth every 6 hours. 30 tablet 0 oxyCODONE (Roxicodone) 5 mg tablet Take 1 tablet by mouth every 4 hours as needed for Pain. 12 tablet 0 BD Ultra-Fine Mini Pen Needle 31 gauge x 3/16 Needle UES WITH LANTUS ONCE A DAY nystatin-triamcinolone (MYCOLOG II) Cream APPLY TO AFFECTED AREA(S) TWO TIMES A DAY ustekinumab (Stelara) 90 mg/mL subcutaneous injection Inject 1 mL subcutaneously Every 12 weeks. 1 mL 1 clobetasoL (Temovate) 0.05 % Ointment Apply topically twice a day on weekends, avoid face. (Patientnot taking: Reported on 07/11/2022) 60 g 0 tacrolimus (Protopic) 0.1 % Ointment Apply to areas of psoriasis twice daily on weekdays (Patient not taking: Reported on 07/11/2022) 100 g 3 BLOOD SUGAR DIAGNOSTIC, DISC MISC by NOT APPLICABLE route. lancets Misc by NOT APPLICABLE route. Blood-Glucose Meter Misc by NOT APPLICABLE route. levothyroxine (Synthroid) 50 mcg Tablet Take 50 mcg by mouth daily. metFORMIN (Glucophage) 500 mg Tablet Take 1,000 mg by mouth 2 times daily. rosuvastatin (Crestor) 5 mg Tablet Take 2.5 mg by mouth daily. clobetasoL (TEMOVATE) 0.05 % Solution Apply topically to the scalp once daily for 2 weeks then takea week off and then repeat as needed (Patient not taking: Reported on 07/11/2022) 50 mL 1 ketoconazole (NIZORAL) 2 % Cream Apply topically to areas under the breast and in the groin once daily for 3 weeks. Then use a few times weekly for maintenance. (Patient not taking: Reported on 07/11/2022) 60 g 3 calcipotriene (Dovonex) 0.005 % Cream Apply to lesions on body twice a day M-F (Patient not taking:Reported on 07/11/2022) 120 g 0 triamcinolone (KENALOG) 0.1 % Cream as needed. clotrimazole (LOTRIMIN) 1 % Cream Apply topically. No current facility-administered medications for this visit. Most Recent Vitals: Ht Readings from Last 1 Encounters: 11/09/22 161.3 cm (5' 3.5) Wt Readings from Last 3 Encounters: 11/09/22 90.6 kg (199 lb 12.8 oz) 10/19/22 99.8 kg (220 lb) 07/31/22 99.8 kg (220 lb) Temp Readings from Last 3 Encounters: 10/21/22 36.8 ??C (98.2 ??F) (Oral) 07/31/22 36.6 ??C (97.8 ??F) BP Readings from Last 3 Encounters: 11/09/22 118/66 10/21/22 127/65 07/31/22 130/75 Pulse Readings from Last 3 Encounters: 11/09/22 60 10/21/22 63 07/31/22 68 There is no height or weight on file to calculate BMI. Pertinent Lab values: Lab Results Component Value Date NA 137 10/20/2022 K 4.0 10/20/2022 CL 105 10/20/2022 CO2 24 10/20/2022 BUN 14 10/20/2022 CREATININE 0.82 10/20/2022 GLUCOSE 136 10/20/2022 CALCIUM 8.4 (L) 10/20/2022 Lab Results Component Value Date ALT 20 10/03/2022 AST 22 10/03/2022 ALKPHOS 59 10/03/2022 BILITOT 0.4 10/03/2022 ALBUMIN 4.3 10/03/2022 PROT 7.2 10/03/2022 Lab Results Component Value Date WBC 8.6 10/20/2022 HGB 11.0 (L) 10/20/2022 HCT 34.2 (L) 10/20/2022 MCV 89.1 10/20/2022 PLATELET 243 10/20/2022 No results found for: HA1C There is no immunization history on file for this patient. Assessment and Recommendations: Patient Counseling Patient informed of specialty services: Yes Patient accepted offer to parliamentary counsel: select all, adherence/missed doses, cost of medications/cost implications, doses and administration, possible drug/OTC drug and food interactions, possible adverse side effects and management, pharmacy contact information, lab monitoring/follow up, possible drug/Rx drug interactions, safe handling, storage, and disposal, therapeutic rationale Medication Management Summary Topics discussed: reviewed medication changes since last visit, safe handling, storage, and disposal discussed, possible adverse effects and management discussed, adherence and missed doses discussed, health goals discussed, preventative care discussed, self-monitoring discussed Time spent: 1-15 min Treatment Outcomes 01/31/2023 1108 Patient Overall Status: Stable Reviewed in detail with patient: Dose appropriateness based on recommended standard dosing Current medication list including OTC medications Medication and disease problems Allergies Comorbid conditions/ Problem List Past adverse events if any Special needs of the patient including physical and cognitive limitations Goals of therapy and management strategies Warnings, precautions, and contraindications Side effects Drug-drug and drug-food interactions Administration instructions including dose, frequency and method Handling, storage, and disposal Verifying expiration dates on products before use Rotating medication inventory to use oldest product first Relevant lab data Treatments impact on disease Dose appropriateness based on recommended standard dosing schedule, including any variations from FDA approved dosing Patient verbalizes understanding and is able to read-back instructions on self-administration/injection, proper storage, drug stability, importance of adherence and management strategies, side effect avoidance and mitigation strategies, and interruptions in therapy: Yes Patient is aware a licensed pharmacist is available 24 hours a day, 7 days a week to discuss medication-related questions or concerns: Yes Patient verbalizes understanding of the common side effect profile of their medication. The patient is able to call 911 or seek urgent care if signs/symptoms of allergy or harmful adverse reactions occur: Yes Additional care/services needed: No Additional equipment/supplies required: No Patient satisfied with care/services provided: Yes Specialty Assessment: Physical and Cognitive Assessment: Functional limitations identified: No Cognitive limitations identified: No Concern regarding orientation/memory: No Concern with reasoning/judgement: No Is patient a fall risk: No Social Assessment: Does patient have a primary residential child care counselor: No Does patient have an emergency contact on file: Yes Does patient need referral to licensed social worker: No Does patient need referral to advocacy group: No Home Health Assessment: Is the patient in a safe home environment?: Yes Is the patient able to store their medication as directed?: Yes Does the patient have a support network at home?: Yes Reviewed potential home safety hazards with patient: Yes Economic Assessment: Patient is agreeable to medication copay: Yes Days Supply: 84 Welcome Packet and Rights and Responsibilities: Patient provided welcome packet/rights and responsibilities: Yes Date Confirmed: 11/23/20 Confirmation: Signature in [facility] Specialty Med Adherence Patient Demonstrates Understanding of Importance of Adherence: Yes Educational Information or Adherence Tools Provided: Yes How many doses does patient have remaining at home?: 0 Patient Reported X Missed Doses in the Last Month: 0 Provider-Estimated Medication Adherence Level: 90-100% Adherence Tools Used: directed education, calendar Therapy Assessment: Current Medication Dosing/Route/Frequency: Stelara 90mg/ml SOSY inject 1 syringe sq every 12 weeks Appropriate Therapy: Yes Effective: yes Current Affected Areas: groin, under arms, under breasts Improving Affected Areas: all areas Worsening Affected Areas: n/a Total BSA involved: n/a Recent Skin Exacerbations/Flaring: yes - currently in flare up Recent Topical Corticosteroid Use: yes Relapsing/Remitting Factors: no Patient-Reported Side Effects: no Recent Infections: no Counseling: Utilizing appropriate injection technique: yes Rotation of Injection Sites: Yes Room Temperature Medication at Time of Injection: Yes Treatment Outcome: Therapy continued Patient Goals: Patient's specific desired goal: to reduce psoriatic lesions Measured by: BSA/patient reporting Time-frame to meet goal: 3-6 months Is the patient on track to achieve goals of therapy? Yes If no, what are the barriers and action plan to reach the goal: n/a On a scale of 1-10 the patient rates their quality of life: n/a Care Plan and Interventions: Care Plan Reviewed and Approved by both Pharmacist and Patient: Yes Did Care Plan Change? No If yes: Change to plans of care based on: Patient's request: no Condition: no Response to therapy: no Provider request: no Follow-up needed: No Interventions (if applicable): no Patient experienced change in condition that affects treatment: no Patient Satisfied with Therapy: yes Pharmacist follow-up needed: Yes Follow-Up Visit Scheduled: no Delivery Method: Delivery Patient understands no changes to current drug regimen were made at the appointment and [facility] (summary located at top of note) for provider review and follow up. Daylin Alba RPH 01/31/23 11:08 AM documented in this encounter Plan of Treatment Upcoming Encounters Date Type Department Care Team (Late st Contact Info) Description 02/01/2025 2:15 PM EDT Office Visit Dermatology at [facility] [address] [place] [id number] Regina Rivas MD [facility] [place] [address] documented as of this encounter Goals Goal [...] Note: Continue to work with sleep at [facility] Goal 7 hours of sleep nightly. Recommend consistent sleep and wake times, avoid electronics within one hour of sleep time movement Lifestyle No Michelle Jaquez, CONSTRUCTION EQUIPMENT MECHANIC HELPER Note: Exercise goal is 150 -300 min a week, prioritize self so you have time to exercise Recommend resistance training 3 times a week -can use [employer] [facility] - 02/27/22 Lifestyle On track(2021 11:38 AM EDT) No Yessy Jonas, MICKEY Note: Nutrition Goals: Establish consistent meal routine [...] on filedocumented in this encounter Care Teams Studio Couch Frame Builder Relationship Specialty Start Date End Date Carolynn Wisdom APRN [address] [place] [address] PCP - General Family Medicine 03/08/20 documented as of this encounter
--- OUTSIDE RECORDS SUMMARY | 2024-01-17 18:04 | XMS_ITS | Encounter Summary ---
Author Organization [facility] Address [facility] [place] [address] Care Team Providers Care Stock Holder Name Role Phone Carolynn Wisdom APRN Primary Care Provider Encounter Details Date Type Department Care Team (Latest Contact Info) Description 06/18/2023 Travel Social History Tobacco Use Types Packs/Day [...] 2:15 PM EDT Office Visit Dermatology at [facility] [address] [place] [phone] Regina Rivas MD [facility] [place] [address] documented as of this encounter Goals Goal [...] track(2021 11:37 AM EDT) No Michelle Jaquez, SUSTAINABILITY ANALYST Note: Mindfulness/deep breathing practice to reduce cortisol -try for at least 10 minutes a day sleep Lifestyle On track(2021 11:37 AM EDT) Michelle Tai, CANDE Note: Continue to work with sleep at [facility] Goal 7 hours of sleep [...] on filedocumented in this encounter Care Teams Stock Holder Relationship Specialty Start Date End Date Carolynn Wisdom APRN [address] [place] [address] PCP - General Family Medicine 03/08/20 documented as of this encounter
--- OUTSIDE RECORDS SUMMARY | 2024-01-17 18:04 | XMS_ITS | Encounter Summary ---
Author Organization [facility] [place] [address] Care Team Providers Care Flatbed Press Operator Name Role Phone Carolynn Wisdom APRN Primary Care Provider Encounter Details Date Type Department Care Team (Latest Contact Info) Description 02/15/2023 11:50 AM EDT Laboratory Appointment Lab [address] [place] [address] S/P bariatric surgery; Disorder of iron metabolism Social History Tobacco Use Types Packs/Day Years Used Date Smoking Tobacco: Former Cigarettes 0.3 3 0 12/31/1986 - 12/31/1989 Smokeless Tobacco: Never Alcohol Use Standard Drinks/Week Comments Yes 3 (1 standard drink = 0.6 oz pur e alcohol) DH IPV Inpatient Questions Answer Date Recorded Does [...] 2:15 PM EDT Office Visit Dermatology at [facility] [address] [place] [address] Regina Rivas MD [facility] [place] [address] documented as of this encounter Goals Goal [...] Note: Continue to work with sleep at [facility] Goal 7 hours of sleep [...] yoga, etc. documented as of this encounter Procedures Procedure Name Priority Date/Time Associated Diagnosis Comments HC PARATHYROID HORMONE(PTH INTACT Routine 02/15/2023 12:24 PM EDT S/P bariatric surgery Disorder of iron metabolism HC HEMOGRAM Routine 02/15/2023 12:24 PM EDT S/P bariatric surgery Disorder of iron metabolism HC PCH THIAMIN LVL(VITAMIN B1) WB-DAIGLE Routine 02/15/2023 12:24 PM EDT S/P bariatric surgery Disorder of iron metabolism HC IRON BINDING CAPACITY Routine 02/15/2023 12:24 PM EDT S/P bariatric surgery Disorder of iron metabolism HC VITAMIN D TOTAL-25 HYDROXY Routine 02/15/2023 12:24 PM EDT S/P bariatric surgery Disorder of iron metabolism HC FOLATE, SERUM Routine 02/15/2023 12:2 4 PM EDT S/P bariatric surgery Disorder of iron metabolism HC FERRITIN, SERUM Routine 02/15/2023 12 :24 PM EDT S/P bariatric surgery Disorder of iron metabolism HC VITAMIN B12 SERUM Routine 02/15/2023 12:24 PM EDT S/P bariatric surgery Disorder of iron metabolism COMPREHENSIVE METABOLIC PANEL (NON-FASTING) Routine 02/15/2023 12:24 PM EDT S/P bariatric surgery Disorder of iron metabolism documented in this encounter Results * Ferritin (02/15/2023 12:24 PM EDT) Ferritin 212 30 - 400 ng/mL [facility] Comment: Pediatric reference ranges not verified at [facility], interpret with caution. Reference ranges for females greater than 50 years of age approach values for men, i.e., 30-400 ng/mL. Blood 02/15/2023 12:2 4 PM EDT 02/15/2023 12:35 PM EDT Narrative Resulting Agency Comment Spec In Lab Krystin E Dell GOVERNMENT AFFAIRS MANAGER CHEMISTRY ORDERABL ES [facility] [place] [address] * Comprehensive metabolic panel (non-fasting) (02/15/2023 12:24 PM EDT) Pathologist [facility] Glucose Lvl 151 65 - 199 mg/dL [facility] Comment:Diabetes: >=200 mg/d L plus symptoms BUN 8 8 - 18 mg/dL [facility] Creatinine 0.70 0.70 - 1.20 mg/dL [facility] Sodium 143 135 - 145 mmol/L [facility] Potassium 3.6 3.5 - 5.0 mmol/L [facility] Comment: Please note: ??Patients with WBC >100,000 may have falsely elevated Potassium levels. ??For accurate Potassium quantification in these patients send serum separator tube (gold top) for subsequent determinations. ??Contact the Clinical Chemistry Laboratory if there are any questions. Chloride 106 98 - 107 mmol/L [facility] CO2 25 22 - 31 mmol/L [facility] Anion Gap 12 5 - 15 mmol/L [facility] Calcium 9.6 8.5 - 10.5 mg/dL [facility] Total Protein 6.8 6.1 - 8.0 g/dL [facility] Albumin 4.4 3.2 - 5.2 g/dL [facility] AST 19 0 - 30 unit/L [facility] ALT 17 0 - 30 unit/L [facility] Alk Phos 65 35 - 105 unit/L [facility] Total Bilirubin 0.4 0.2 - 1.3 mg/dL [facility] Estimated GFR 98 >=60 mL/min/1. 73 m?? [facility] Comment: This patient's estimated GFR [...] Resulting Agency Comment Spec In Lab Krystin E Dell GOVERNMENT AFFAIRS MANAGER CHEMISTRY ORDERABL ES Performing Organization Address [facility]/ZIP Co de Phone Number [facility] [place] [address] * Folate, serum (02/15/2023 12:24 PM EDT) Folate Lvl >20.0 4.8 - 24.2 ng/mL [facility] Blood 02/15/2023 12:2 4 PM EDT 02/15/2023 12:35 PM EDT Narrative Resulting Agency Comment Spec In Lab Krystin E Montcalm GOVERNMENT AFFAIRS MANAGER CHEMISTRY ORDERABL ES Performing Organization Address City/[facility]/ZIP Co de Phone Number [facility] [place] [address] * Hemogram (02/15/2023 12:24 PM EDT) WBC 8.6 4.0 - 9.5 x10(3)/[facility] LABORATORY RBC 4.29 4.00 - 5.21 x10(6)/[facility]ATORY Hemoglobin 12.6 11.7 - 15.5 g/dL [facility] Hematocrit 37.8 35.7 - 45.8 % [facility] MCV 88.1 82.6 - 94.4 [facility] LABORATORY MCH 29.4 27.1 - 32.0 pg [facility] MCHC 33.3 31.7 - 35.0 g/dL [facility] Platelets 261 145 - 357 x10(3)/[facility] RDWSD 44.0 37.0 - 46.0 [facility] RDWCV 13.7 11.5 - 14.1 % [facility] MPV 12.0 7.6 - 12.9 [facility] LABORATORY nRBC % Auto 0.0 % [facility] nRBC Abs Auto 0.000 0.000 - 0.000 x10(3)/[facility]ATORY Blood 02/15/2023 12:2 4 PM EDT 02/15/2023 12:35 PM EDT Narrative Resulting Agency Comment Spec In Lab Krystin E Dell GOVERNMENT AFFAIRS MANAGER HEMATOLOGY ORDERAB LES Performing Organization Address City/State/[facility] Co de Phone Number [facility] [place] [address] * (ABNORMAL) Iron and TIBC (02/15/2023 12:24 PM EDT) Iron 60 30 - 150 mcg/dL [facility] TIBC 241(L) 250 - 450 mcg/dL [facility] Iron Saturation 25 20 - 50 % [facility] Blood 02/15/2023 12:2 4 PM EDT 02/15/2023 12:35 PM EDT Narrative Resulting Agency Comment Spec In Lab Krystin E Montcalm GOVERNMENT AFFAIRS MANAGER CHEMISTRY ORDERABL ES Performing Organization Address City/[facility]/ZIP Co de Phone Number [facility] [place] [address] * PTH (02/15/2023 12:24 PM EDT) PTH 28 15 - 65 pg/mL [facility] Blood 02/15/2023 12:2 4 PM EDT 02/15/2023 12:35 PM EDT Narrative Resulting Agency Comment Spec In Lab Krystin E Dell GOVERNMENT AFFAIRS MANAGER CHEMISTRY ORDERABL ES Performing Organization Address [facility] de Phone Number [facility] [place] [address] * Vitamin B1, whole blood (02/15/2023 12:24 PM EDT) Vit B1 Lvl WB 128 70 - 180 nmol/L [facility] Comment: ADDITIONAL INFORMATION This test was developed and its performance characteristics determined by [facility] in a manner consistent with CLIA requirements. This test has not been cleared or approved by the U.S. Food and Drug Administration. Test Performed by: [facility] - [address] [address] [employer] Professor: Jona Marti M.D. Ph.D.; CLIA# [id number] Blood 02/15/2023 12:2 4 PM EDT 02/15/2023 1:03 PM EDT Narrative Resulting Agency Comment Spec In Lab Krystin E Montcalm GOVERNMENT AFFAIRS MANAGER CHEMISTRY ORDERABL ES Performing Organization Address [facility] Co de Phone Number [facility] [place] [address] * Vitamin D, 25-Hydroxy (02/15/2023 12:24 PM EDT) 25-OH Vit D Total 37 21 - 100 ng/mL [facility] 25-OH Vit D Interp Sufficient [facility] Blood 02/15/2023 12:2 4 PM EDT 02/15/2023 12:35 PM EDT Narrative Resulting Agency Comment Spec In Lab Krystin E Dell GOVERNMENT AFFAIRS MANAGER CHEMISTRY ORDERABL ES Performing Organization Address [facility]/ZIP Co de Phone Number [facility] [place] [address] * Vitamin B12 (02/15/2023 12:24 PM EDT) Vitamin B-12 554 232 - 1,245 pg/mL [facility] Blood 02/15/2023 12:2 4 PM EDT 02/15/2023 12:35 PM EDT Narrative Resulting Agency Comment Spec In Lab Krystin E Dell GOVERNMENT AFFAIRS MANAGER CHEMISTRY ORDERABL ES Performing Organization Address [facility] Co de Phone Number [facility] [place] [address] documented in this encounter Visit Diagnoses Diagnosis S/P bariatric surgery Bariatric surgery status Disorder of iron metabolism Other disorders of iron metabolism documented in this encounter Care Teams Flatbed Press Operator Relationship Specialty Start Date End Date Carolynn Wisdom APRN [address] [place] [address] PCP - General Family Medicine 03/08/20 documented as of this encounter
--- OUTSIDE RECORDS SUMMARY | 2024-01-17 18:04 | XMS_ITS | Encounter Summary ---
[place] [address] Care Team Providers Care General Ledger Bookkeeper Name Role Phone Carolynn Wisdom APRN Primary Care Provider Reason for Visit * Reason Comments Prior Authorization Stelara 90mg /mL SOS Y Encounter Details Date Type Department Care Team (Late st Contact Info) Description 04/24/2023 Specialty [place] [address] Darnell Wiggins, [facility] Social History Tobacco Use Types Packs/Day Years Used Date Smoking Tobacco: Former Cigarettes 0.3 3 0 12/31/1986 - 12/31/1989 Smokeless Tobacco: Never Alcohol Use Standard Drinks/Week Comments Yes 3 (1 standard drink = 0.6 oz pur e alcohol) [facility] Inpatient Questions Answer Date Recorded Does Anyone [...] as of this encounter Progress Notes * Darnell Wiggins - 04/24/2023 10:39 AM EDT [facility], Medication Prior Authorization Submission Patient: Melinda Goncalves Patient : 1960 Patient Address: [address] [place] [id number] Phone: [phone] (home) Medication Name: STELARA 90 MG/ML SUBCUTANEOUS SYRINGE Medication ID: Subscriber Insurance: Subscriber Insurance Comment: [facility] ([facility]) Fax: Physician: PATRICIA HASSAN Physician Comment: Sent Via: [facility] Oneal: [id number] Ref/Case/PA#: [id number] Medication Strength Frequency Requested: Stelara 90mg/mL SOSY. Inject the contents of one syringe (90mg) SQ every 8 weeks Qty/Day Supply: New Start: Change in Dose Diagnosis & ICD-10 Code: Inveerse Psoriasis L40.8 Patient Notified: Yes Submission Notes: None Darnell Wiggins 04/24/23 10:42 AM * Darnell Wiggins - 04/24/2023 10:39 AM EDT [facility], Benefits Investigation Patient: Melinda Goncalves Patient : 1960 Patient Address: [address] [place] [id number] Phone: [phone] (home) Medication Name: STELARA 90 MG/ML SUBCUTANEOUS SYRINGE Medication ID: Patient Location: [facility] Patient Location Comment: Medication Strength Frequency Requested: Stelara 90mg/mL SOSY. Inject the contents of one syringe (90mg) SQ every 8 weeks Qty/Day Supply: New Start: Change in Dose Diagnosis & ICD-10 Code: Inveerse Psoriasis L40.8 Subscriber Insurance: Subscriber Insurance Comment: [facility] ([facility]) Fax: Physician: PATRICIA HASSAN Physician Comment : PA Status: PA Not Needed Insurance mandated Pharmacy: [facility]: Yes Insurance requirements/notes: - PA for 1 per 56 day dosing cancelled due to PA already on file. Will run a claim for 1 per 56 days doing in May since insurance should cover new dose with existing PA Copay: Copay assistance: Copay Card Copay assistance comment: Pharmacy staff will be reaching out to the patient to inform them of their medication's approval bytheir insurance. If applicable, a pharmacist will speak with the patient to offer our specialty pharmacy services and to arrange delivery of their medication. Darnell Wiggins 04/24/23 1:26 PM documented in this encounter Plan of Treatment Upcoming Encounters Date Type Department Care Team (Late st Contact Info) Description 02/01/2025 2:15 PM EDT Office Visit Dermatology at [address] [phone] Regina Rivas MD [facility] [place] [address] documented as of this encounter Goals Goal [...] Note: Continue to work with sleep at [facility] Goal 7 hours of sleep [...] on filedocumented in this encounter Care Teams General Ledger Bookkeeper Relationship Specialty Start Date End Date Carolynn Wisdom, CANDE [address] [place] [address] PCP - General Family Medicine 03/08/20 documented as of this encounter
--- OUTSIDE RECORDS SUMMARY | 2024-01-17 18:04 | XMS_ITS | Encounter Summary ---
Author Organization [facility] Address [facility] [place] [address] Care Team Providers Care Wind Turbine Design Engineer Name Role Phone MelodieCarolynn judd CANDE Primary Care Provider Encounter Details Date Type Department Care Team (Late st Contact Info) Description 11/09/2022 12:30 PM EDT Office Visit General Surgery at [facility] [place] [address] Marjorie Holman, PRESIDENT ERGONOMIC CONSULTING [facility] [place] [address] Mirian Horowitz, [address] [facility] [place] [address] S/P bariatric surgery; Disorder of iron metabolism; Type 2 diabetes mellitus without complication, with long-term current use of insulin Social History Tobacco Use Types Packs/Day Years Used Date Smoking Tobacco: Former Cigarettes 0.3 3 0 12/31/1986 - 12/31/1989 Smokeless Tobacco: Never Alcohol Use Standard Drinks/Week Comments Yes 3 (1 standard drink = 0.6 oz pur e alcohol) [facility] Inpatient Questions Answer Date Recorded Does [...] Sign Reading Time Taken Comments Blood Pressure 118/66 11/09/2022 12:37 PM EDT Pulse 60 11/09/2022 12:37 PM EDT Temperature - - Respiratory Rate 14 11/09/2022 12:3 7 PM EDT Oxygen Saturation 98% 11/09/2022 12: 37 PM EDT Inhaled Oxygen Concentration - - Weight 90.6 kg (199 lb 12.8 oz) 023 12:37 PM EDT Height 161.3 cm (5' 3.5) 11/09/2022 12 :37 PM EDT Body Mass Index 34.83 11/09/2022 12:37 PM EDT documented in this encounter Patient Instructions * Patient Instructions* Marjorie Holman, PRESIDENT ERGONOMIC CONSULTING - 11/09/2022 12:30 PM EDT Bariatric Surgery Program First Post-operative Follow up visit Contact information: [facility] ground crewman aircraft support: Aisha: [phone] and Anitha [phone] Dietitians: [phone] Surgeons/ nurse practitioners: [phone] Nurse line: [phone] Dear Melinda, Thank you for following up with the Bariatric Surgery Program at [facility]. Please review your medical note from today's visit for specific information we discussed. Next follow up visit: at 4 months post-op. Testing: Labwork will be done at your 4 month post-op appointment. The lab orders will be in the system before your visit. The main lab is at [address]L and does not require an appointment. The hours are Saturday through Saturday, 6:45 am to 6:00 pm. Here's the link to [facility] Lab hours and locations, in case one of the other locations is more convenient for you: [email or web address] If you have labwork done by your primary critical care nurse practitioner before that date, please have a copy sent to the Bariatric Surgery Program. Post surgery Medications: 1. Continue medication to prevent ulcer (likely a PPI like omeprazole) until you are at least 3 months post surgery, or as indicated by your primary care doctor. 2. If you have a gallbladder, continue to take ursodiol for a total of 6 months after surgery to prevent gallstones from forming, and to shrink any gallstones that may be present. Vitamins/Nutrition/Activity Recommendations: Please see your visit note for personalized recommendations General Supplement recommendations: Multivitamins with minerals twice daily- needs [...] Blow dry area on low setting with chair mender. Apply absorbent powder such as Gold Melchor and [...] control for women of child bearing age: control is recommended for at least 18-24 months after surgery. f non-prescribed drugs and treet drugs is unsafe Anti-inflammatory medications (NSAIDs) such as Ibuprofen (Advil), Aleve (Naproxen), Excedrin, Margot-[place] should be avoided for at least the first 2 months after surgery. After that they should be used sparingly very sparingly as they increase the risk of ulcer and bleeding. A bone mineral density scan (DEXA) is recommended every 2 years after bariatric surgery. Please schedule this study through your primary care provider's office. Hair Loss: is associated with rapid [...] be increased with higher than predicted weight loss. Potential lifetime risks of sleeve gastrectomy include developed heartburn or severe reflux. Call us: If you have concerns. If you have unexplained abdominal pain if you see blood in your stool or vomit blood If you have prolonged vomiting Post Surgery Support Group: Our post surgery support group meets at [facility] on the first Saturday of every month from 1:00 PM-2:00 PM, call to sign up! Nutrition and Activity apps- Baritastic, My Fitness Pal, Lose It, My Plate Internet resources: www.myParcelDelivery www.NetSanity www.MemoropeaXcedex www.GlocalReach.Leondra music/blog [facility] facebook page: https://www.facebook.[email or web address] Books & Magazines: - Recipes for Life After Weight Loss Surgery by Ivana Oscar - Shrink Yourself by Dr Crispin Loera - Eating Well - www.MMRGlobal - Cooking Light- www.cookinglight.Leondra music Anxiety: The Happiness Trap by Scott Miranda The Mindfulness and acceptance workbook for anxiety By Jewel Rdz. Mindful eating: What are you Hungry For? By Landen Dotson The Mindful Diet by Tatum Leon and the [facility] group. Emotional eating: End Emotional Eating by Mirian Callejas Calming the Emotional Storm Paula Snider documented in this encounter Progress Notes * Mirian Horowitz, RD - 11/09/2022 12:30 PM EDT Bariatric Nutrition Follow-up Visit Topics Discussed/Patient Concerns: ?? I don't know what to eat. ?? Shy on protein. Doing OK with fluids. 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 2 children. ?? Social support: son (will stay w her after surgery), immediate family ?? Hobbies: horse, recently restarted yoga, ski (downhill) [...] (lbs) HT BMI Comments Age 46 253# ? Highest Weight 08/10/21 225# ? Initial program weight 07/31/22 220# 64 37.7 1st pre-op visit ??10/19/22 ??220# EWL % ?? Surgery ??11/09/22 199.8#?? 27% 34.8 3 weeks post-op ? 4 months post-op Damon Body Weight (based on BMI of 25): 146# 30-70% Excess Weight Loss: 168-198#; 50% Excess Weight Loss: 183# MEDICATIONS: Vitamin/Mineral Supplements (reported by patient): pt plans to purchase bariatric multivitamin and calcium citrate chews Supplement Type Brand/Form Dosage/Amount Frequency Comments Multivitamin Women's multi 1 pill daily Calcium Vitamin B12 Iron Vitamin D3 Food Allergies/Intolerances: none Tracking Intake: has [employer] cindy Daily Oral Intake: had ground meat, sauce and noodles Breakfast 1/2 pc toast w butter - habit AM Snack Lunch Yogurt and fruit PM Snack Dinner Potato w butter and salt HS Snack Protein- grams/day: ~15-20 g yesterday Hydrating fluids - oz/day: ~48 oz water Soda: ETOH: none Caffeine: none Meals per day: 3 Other: ?? Vomiting/ regurgitation: none ?? Nausea: none ?? Constipation/diarrhea: BM daily. Has Miralax but hasn't needed it. ?? Presurgery: Diarrhea- 2-3 x daily due to metformin. Multiple bouts of diarrhea from 6-8:30AM. Has imodium with her at all times. Brings a change of clothes everywhere she goes as she sometimes hasleakage and does not know it. Exercise: energy is great. Back to work. ADLs. Plans to restart horseback riding. ASSESSMENT: Patient s/p bariatric surgery with 27% EWL. Pt is tolerating the diet and is meeting fluid goals. Protein intake is low. Reviewed sources of protein on the Stage 3 diet. Rec hold bread and noodles until Stage 4 diet. Pt is interested in restarting endurance horseback riding - 3-4 hours rides. Briefly discussed fueling/hydration. Advised she will likely need to start hydrating/fueling earlier than before. May needto eat smaller amounts more often. PLAN: ?? Evaluation by Marjorie Holman APRN today. ?? Provided support/encouragement and reinforced importance of meeting nutritional goals. Continue Stage 3 diet. Advance to Stage 4 diet starting 5 weeks post-op. ?? Reviewed vitamin and mineral supplement recommendations. Multivitamin with minerals- continue Bariatric Multivitamin 1 pill per day Calcium citrate 500-600 mg with vitamin D twice daily. (2 pills twice per day or 1 chew twice daily) ?? Follow-up in 3 months, sooner if requested. * Marjorie Holman APRN - 11/09/2022 12:30 PM EDT [place] [address] Reason for visit: Bariatric Surgery Post Op Check Surgery Info: s/p laparoscopic Parker-en-Y gastric bypass on 10/19/[address] Mckeon. No pathology. Subjective: Melinda Goncalves is s/p the above procedures, post course has been going ok overall. Port sites are healing. Tolerating foods/fluids overall, still learning what foods work better and pacing eating/drinking. Meeting fluid goals. Has tried to advance her diet too soon (toast/noodles), She is not consistently meeting protein requirements. Current Supplements: Multi-vitamin with minerals/iron once daily (she plans to get a bariatric multi and calcium citratechews) Primary care post op follow up visit: Pt was seen by PCP on 11/02/22 No ED visits/unplanned medical visits since surgery. Pre-Bariatric Surgery Obesity related medical issues: ?? Problem Baseline issue if checked Comments Diabetes/prediabetes/insulin resistance [x]? Off Lantus and now just on metformin, ?? Metabolic syndrome or PCOS []? HTN []? GERD []? Hyperlipidemia [x]? On rosuvastatin HEATHER [x]? Not using CPAP consistently Musculoskeletal issues []? Liver Disease []? Other [x]? Psoriasis- has not started Stelara yet. Using multiple topicals ? Post Bariatric Surgery Medications: Extended VTE prophylaxis post surgery Completed 10 day course of enoxaparin without incident. Post-discharge narcotic analgesic use No longer required. Ursodiol gallstone prophylaxis Taking as directed. PPI ulcer prophylaxis Taking as directed. Contraception postmenopausal. ROS: No Fever, chills, nausea, vomiting. Has not required anti-emetics No Chest pain, SOB or palpitations No bladder concerns or changes. BM are better, had been tending toward constipation immediately after surgery, but now is having daily BM without problems. 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 Appetite : as expected, trying to meet protein/fluid requirements Activity level : working full-time, managing chores, running errands Social history/support: Lives alone with her cats, dogs and horse. 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 Daughter, son and her mom are supportive/helpful. Her daughter had bariatric surgery last year. Health Habits: Tobacco: Distant past (>3 years). ETOH: No alcohol since before surgery.. NSAID use: None. Patient Active Problem List Diagnosis Code ??? Hyperlipidemia E78.5 ??? 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 Migraine headache with aura G43.109 ??? Subclinical hypothyroidism E03.8 ??? Transient vision disturbance of left eye H53.9 ??? Type 2 diabetes mellitus E11.9 ??? Class 2 severe obesity due to excess calories with serious comorbidity and body mass index (BMI) of 38.0 to 38.9 in adult E66.01, Z68.38 ??? HEATHER (obstructive sleep apnea) G47.33 ??? Metabolic syndrome E88.81 Medications/allergies reviewed. Dietary history/ exericse/ activity level: See dietitian note from today's visit for complete dietary evaluation. WT (lbs) BMI HT Highest wt Initial Pre-op visit 07/31/22 220 37.8 5'4 ? Post-op WT (lbs) BMI ?? %EBW lost ??11/09/22 ??199 ??34.8 ?27% ? Objective: BP 118/66 (BP Location (NBP): Right arm, Patient Position: Sitting, BP Cuff Sizes: Adult (25-34 cm)) Pulse 60 Resp 14 Ht 161.3 cm (5' 3.5) Wt 90.6 kg (199 lb 12.8 oz) SpO2 98% BMI 34.83 kg/m?? Physical Exam General: Alert, pleasant, NAD, appears well. Abdomen: Soft, non-distended, non-tender. trochar sites are healing nicely. No heat, tenderness or drainage. Resp: No increased work of breathing. Speaking in full sentences. No cough/wheeze witnessed. Skin: excess skin noted over abdomen. Skin is warm and dry. No rash noted on exam today. Fading ecchymosis noted. Psychiatric: Normal mood and affect. Appropriate eye contact. Assessment: Melinda Goncalves is s/p above procedures, with uneventful early post- operative course. Obesity related co-morbidities are improved/stable overall. Plan: ?? Encouraged her to follow the stages of the diet as recommended. ?? Continue Ursodiol as recommended for 6 months to reduce the risk of gallstone formation during the period of rapid weight loss. ?? Continue PPI therapy until at least 3 months post op to decrease the risk of ulcer formation andavoid NSAIDs. Discussed how to taper down/off. ?? Bowel Function: reviewed bowel regimen and importance of movement and fluids. Recommend BM at least every other day. Consider miralax. Call if struggling. ?? Sleep apnea: recommend increasing CPAP usage to daily and follow up with sleep center to determine if CPAP settings need to be adjusted. ?? Advised that hair loss due to rapid weight loss is typical 3-6 months post- surgery and should improve with time and adequate protein/ calorie intake. ?? Avoid ETOH until 6-12 months post-operatively, and then should be used in small amounts ?? Discussion re: importance of chewing food completely, taking time to eat, trying to avoid more complex foods at this time, food/fluids etc. ?? See pourer crane ladle note re: recommendations regarding vitamin and mineral supplementation, fluid intake and exercise. RTC in 3 months for next BSP follow up visit, with labs.(ordered) Call/rtc sooner prn with questions/concerns or unexplained abdominal pain, prolonged nausea, vomiting or inability to hydrate Bariatric Program Summary report is availabe for patient's review via e-DH Marjorie Holman APRN [facility] Bariatric Surgery Program RECOMMENDED BARIATRIC SURGERY PROGRAM POSTOPERATIVE FOLLOW-UP: Follow up: done at 4, 12 and 24 months, and yearly thereafter. High risk patients are evaluated on a more frequent basis. *Supplement recommendations: Multivitamin with minerals twice a day, B12 500 mcg once a day, calcium citrate 600 mg/400 units vitamin D twice a day, iron (ferrous fumarate, carbonyl iron taken with vitamin C 250 mg once a day) for menstruating females or those with TEVIN. Labwork: Hemogram, ferritin, iron (transferrin) saturation, iron, folate, B1, B12, D (25 hydroxy only), Intact PTH and comprehensive metabolic profile at 4, 12 and 24 months, and yearly. If labwork is done by the primary critical care nurse practitioner: please send a copy to the Bariatric Surgery Program, General Surgery Clinic, [facility], or fax [phone] documented in this encounter Plan of Treatment Upcoming Encounters Date Type Department Care Team (Late st Contact Info) Description 02/01/2025 2:15 PM EDT Office Visit Dermatology at [facility] [address] [place] [id number] Regina Rivas MD [facility] [place] [address] documented as of this encounter Goals Goal Patient Goal Type Associated Problems Recent Progress Patient-Stated? Author meal timing/food choices/ bariatric behaviors Lifestyle On track(2021 11:38 AM EDT) No Leonid, Michelle L, PRESIDENT ERGONOMIC CONSULTING Note: Work on eating more mindfully Try [...] track(2021 11:37 AM EDT) No Michelle Jaquez, PRESIDENT ERGONOMIC CONSULTING Note: Mindfulness/deep breathing practice to reduce cortisol -try for at least 10 minutes a day sleep Lifestyle On track(2021 11:37 AM EDT) No Michelle Jaquez, PRESIDENT ERGONOMIC CONSULTING Note: Continue to work with sleep at [facility] Goal 7 hours of sleep nightly. Recommend consistent sleep and wake times, avoid electronics within one hour of sleep time movement Lifestyle No Michelle Jaquez, PRESIDENT ERGONOMIC CONSULTING Note: Exercise goal is 150 -300 min [...] yoga, etc. documented as of this encounter Results * Vitamin B12 (02/15/2023 12:24 PM EDT) Vitamin B-12 554 232 - 1,245 pg/mL [facility] Blood 02/15/2023 12:2 4 PM EDT 02/15/2023 12:35 PM EDT Narrative Resulting Agency Comment Spec In Lab Krystin Barrow Dell PRESIDENT ERGONOMIC CONSULTING CHEMISTRY ORDERABL ES Performing Organization Address [facility]/ZIP Co de Phone Number [facility] [place] [address] * Vitamin D, 25-Hydroxy (02/15/2023 12:24 PM EDT) Pathologist [facility] 25-OH Vit D Total 37 21 - 100 ng/mL [facility] 25-OH Vit D Interp Sufficient [facility] Blood 02/15/2023 12:2 4 PM EDT 02/15/2023 12:35 PM EDT Narrative Resulting Agency Comment Spec In Lab Krystin E Kenyon PRESIDENT ERGONOMIC CONSULTING CHEMISTRY ORDERABL ES Performing Organization Address [facility]/ZIP Co de Phone Number [facility] [place] [address] * Vitamin B1, whole blood (02/15/2023 12:24 PM EDT) Vit B1 Lvl WB 128 70 - 180 nmol/L [facility] Comment: ADDITIONAL INFORMATION This test was developed and its performance characteristics determined by [facility] in a manner consistent with CLIA requirements. This test has not been cleared or approved by the U.S. Food and Drug Administration. Test Performed by: [facility] [address] [place] [address] Fruit Tester: Jona Marti M.D. Ph.D.; CLIA# [id number] Blood 02/15/2023 12:2 4 PM EDT 02/15/2023 1:03 PM EDT Narrative Resulting Agency Comment Spec In Lab Krystin E Kenyon PRESIDENT ERGONOMIC CONSULTING CHEMISTRY ORDERABL ES Performing Organization Address [facility]/ZIP Co de Phone Number [facility] [place] [address] * PTH (02/15/2023 12:24 PM EDT) PTH 28 15 - 65 pg/mL [facility] Blood 02/15/2023 12:2 4 PM EDT 02/15/2023 12:35 PM EDT Narrative Resulting Agency Comment Spec In Lab Krystin E Kenyon PRESIDENT ERGONOMIC CONSULTING CHEMISTRY ORDERABL ES Performing Organization Address [facility] Co de Phone Number [facility] [place] [address] * (ABNORMAL) Iron and TIBC (02/15/2023 12:24 PM EDT) Iron 60 30 - 150 mcg/dL [facility] TIBC 241(L) 250 - 450 mcg/dL [facility] Iron Saturation 25 20 - 50 % [facility] Blood 02/15/2023 12:2 4 PM EDT 02/15/2023 12:35 PM EDT Narrative Resulting Agency Comment Spec In Lab Krystin E Dell PRESIDENT ERGONOMIC CONSULTING CHEMISTRY ORDERABL ES Performing Organization Address [facility]/ZIP Co de Phone Number [facility] [place] [address] * Hemogram (02/15/2023 12:24 PM EDT) WBC 8.6 4.0 - 9.5 x10(3)/[facility] RBC 4.29 4.00 - 5.21 x10(6)/[facility] Hemoglobin 12.6 11.7 - 15.5 g/dL [facility] Hematocrit 37.8 35.7 - 45.8 % [facility] MCV 88.1 82.6 - 94.4 fL [facility] MCH 29.4 27.1 - 32.0 pg [facility] MCHC 33.3 31.7 - 35.0 g/dL [facility] Platelets 261 145 - 357 x10(3)/[facility] LABORATORY RDWSD 44.0 37.0 - 46.0 [facility]ORY RDWCV 13.7 11.5 - 14.1 % [facility] MPV 12.0 7.6 - 12.9 fL [facility] nRBC % Auto 0.0 % [facility] nRBC Abs Auto 0.000 0.000 - 0.000 x10(3)/[facility] Blood 02/15/2023 12:2 4 PM EDT 02/15/2023 12:35 PM EDT Narrative Resulting Agency Comment Spec In Lab Krystin E Dell PRESIDENT ERGONOMIC CONSULTING HEMATOLOGY ORDERAB LES Performing Organization Address City/[facility]/ZIP Co de Phone Number [facility] [place] [address] * Folate, serum (02/15/2023 12:24 PM EDT) Folate Lvl >20.0 4.8 - 24.2 ng/mL [facility] Blood 02/15/2023 12:2 4 PM EDT 02/15/2023 12:35 PM EDT Narrative Resulting Agency Comment Spec In Lab Krystin E Kenyon PRESIDENT ERGONOMIC CONSULTING CHEMISTRY ORDERABL ES [facility] [place] [address] * Comprehensive metabolic panel (non-fasting) (02/15/2023 12:24 PM EDT) Glucose Lvl 151 65 - 199 mg/dL [facility] Comment:Diabetes: >=200 mg/d L plus symptoms BUN 8 8 - 18 mg/dL [facility] Creatinine 0.70 0.70 - 1.20 mg/dL [facility] Sodium 143 135 - 145 mmol/L [facility] Potassium 3.6 3.5 - 5.0 mmol/L [facility] Comment: Please note: ??Patients with WBC >100,000 may have falsely elevated Potassium levels. ??For accurate Potassium quantification in these patients send serum separator tube (gold top) for subsequent determinations. ??Contact the Clinical Chemistry Laboratory if there are any questions. Chloride 106 98 - 107 mmol/L [facility] CO2 25 22 - 31 mmol/L [facility] Anion Gap 12 5 - 15 mmol/L [facility] Calcium 9.6 8.5 - 10.5 mg/dL [facility] Total Protein 6.8 6.1 - 8.0 g/dL [facility] Albumin 4.4 3.2 - 5.2 g/dL [facility] AST 19 0 - 30 unit/L [facility] ALT 17 0 - 30 unit/L [facility] Alk Phos 65 35 - 105 unit/L [facility] Total Bilirubin 0.4 0.2 - 1.3 mg/dL [facility] Estimated GFR 98 >=60 mL/min/1. 73 m?? [facility] Comment: This patient's estimated [...] Comment Spec In Lab Krystin E Dell PRESIDENT ERGONOMIC CONSULTING CHEMISTRY ORDERABL ES Performing Organization Address [facility] Co de Phone Number [facility] [place] [address] * Ferritin (02/15/2023 12:24 PM EDT) [facility] Signature Ferritin 212 30 - 400 ng/mL [facility] Comment: Pediatric reference ranges not verified at [facility], interpret with caution. Reference ranges for females greater than 50 years of age approach values for men, i.e., 30-400 ng/mL. Blood 02/15/2023 12:2 4 PM EDT 02/15/2023 12:35 PM EDT Narrative Resulting Agency Comment Spec In Lab Krystin Zuñigalding PRESIDENT ERGONOMIC CONSULTING CHEMISTRY ORDERABL ES Performing Organization Address [facility] Co de Phone Number [facility] [place] [address] documented in this encounter Visit Diagnoses Diagnosis S/P bariatric surgery Bariatric surgery status Disorder of iron metabolism Other disorders of iron metabolism Type 2 diabetes mellitus without complication, with long-term current use of insulin documented in this encounter Care Teams Wind Turbine Design Engineer Relationship Specialty Start Date End Date Carolynn Wisdom APRN [address] [place] [address] PCP - General Family Medicine 03/08/20 documented as of this encounter
--- OUTSIDE RECORDS SUMMARY | 2024-01-17 18:04 | XMS_ITS | Encounter Summary ---
Author Organization [facility] Address [facility] [place] [address] Care Team Providers Care Heating Operators Engineer Name Role Phone Carolynn Wisdom MATERIALS ASSOCIATE Primary Care Provider Encounter Details Date Type Department Care Team (Late Contact Info) Description 12/02/2023 Refill Dermatology at [facility] [address] [place] [id number] Lisa Vasquez MD [address] [place] [address] Social History Tobacco Use Types Packs/Day Years [...] Encounters Date Type Department Care Team (Late Contact Info) Description 02/01/2025 2:15 PM EDT Office Visit Dermatology at [facility] [address] [address] Regina Rivas MD [facility] [place] [address] documented as of this encounter Goals Goal [...] Note: Continue to work with sleep at [facility] Goal 7 hours of [...] on filedocumented in this encounter Care Teams Heating Operators Engineer Relationship Specialty Start Date End Date Carolynn Wisdom APRN [address] [place] [address] PCP - General Family Medicine 03/08/20 documented as of this encounter
--- OUTSIDE RECORDS SUMMARY | 2024-01-17 18:04 | XMS_ITS | Encounter Summary ---
Author Organization Formerly [facility] [place] [address] Care Team Providers Care Lehr Operator Name Role Phone MelodieCarolynn judd CANDE Primary Care Provider [phone] Reason for Visit * Auth/Cert (Routine) Specialty Diagnoses / Procedures Referred By Bay t Referred To Contact Diagnoses Morbid (severe) obesity due to excess calories Obstructive sleep apnea (adult) (pediatric) Hyperlipidemia, unspecified Type 2 diabetes mellitus without complications Morbid Obesity Procedures PRO LAP GASTRIC BYPASS/DAVID-EN-Y PRO UPPER GI ENDOSCOPY, DIAGNOSTIC @LAPAROSCOPIC GASTROPLASTY W/ DAVID-EN-Y CONSTRUCTION (WRVU 29.4) EGD, UPPER GI ENDOSCOPY Ronda Mckeon MD [facility] [place] [address] [facility] Referral ID Status Reason Start Date Expiration Date Visits Re quested Visits Authorized [id number] 1 1 Encounter Details Date Type Department Care Team (Latest Contact Info) Description 10/19/2022 6:52 AM EDT - 10/21/2022 12:30 PM EDT Hospital Encounter Surgical Unit Level [address] [place] [id number] Ronda Mckeon MD [facility] [place] [address] Discharge Disposition: Home Social History Tobacco Use Types Packs/Day Years [...] Sign Reading Time Taken Comments Blood Pressure 127/65 10/21/2022 12:32 AM EDT Pulse 63 10/21/2022 6:22 AM EDT Temperature 36.8 ??C (98.2 ??F) 10/21/2022 6:22 AM ED T Respiratory Rate 18 10/21/2022 6:22 AM EDT Oxygen Saturation 93% 10/21/2022 12:32 AM EDT Inhaled Oxygen Concentration - - Weight 99.8 kg (220 lb) 10/19/2022 7:09 AM EDT Height 160 cm (5' 3) 10/19/2022 7:09 AM EDT Body Mass Index 38.97 10/19/2022 7:09 AM EDT documented in this encounter Discharge Summaries * Halima De La Rosa MD - 10/21/2022 10:25 AM EDT Images from the original note were not included. Minimally Invasive Surgery- Discharge Summary Patient Name: Melinda Goncalves Patient Age: 62 y.o. Birthdate: 1960 Admit date: 10/19/2022 Discharge date and time: 10/21/2022 Attending Physician: Ronda Mckeon MD Primary Diagnosis: Metabolic syndrome Secondary Diagnosis: Active Hospital Problems Diagnosis ??? Metabolic syndrome Resolved Hospital Problems No resolved problems to display. Active Non-Hospital Problems Diagnosis ??? HEATHER (obstructive sleep apnea) ??? Hyperlipidemia ??? Inverse psoriasis ??? Migraine headache with aura ??? Subclinical hypothyroidism ??? Transient vision disturbance of left eye ??? Type 2 diabetes mellitus ??? Class 2 severe obesity due to excess calories with serious comorbidity and body mass index (BMI) of 38.0 to 38.9 in adult Operations/Major Procedures: Operations: 10/19/2022 Surgeon(s) and Role: * Ronda Mckeon MD - Primary * Halima De La Rosa MD - Fellow - Assisting: Procedure(s): @LAPAROSCOPIC GASTROPLASTY W/ DAVDI-EN-Y CONSTRUCTION (WRVU 29.4) EGD, UPPER GI ENDOSCOPY (WRVU 2.09) Hospital Course: Melinda Goncalves is a 62 y.o. female with history of metabolic syndrome and obesity who was taken tothe OR for the procedure listed above. This was performed 10/19/2022 without incident. Postoperatively she was admitted to the hospital in good condition. Overall her postoperative course was uncomplicated. Ultimately, she made a satisfactory recovery and by the date of discharge she had stable nutrient intake on a stage II full liquis diet, was performing essential ADLs, and her pain was well controlled. At this point we felt she was appropriate for discharge, all final arrangements were made, and she was released from the hospital. Pending Lab Data at Discharge: None Condition at Discharge: Stable Important Studies and Lab Data: Labs: Recent Results (from the past 24 hour(s)) POCT Glucose Result Value Ref Range POC Glucose 101 65 - 199 mg/dL Hemogram Result Value Ref Range WBC 8.6 4.0 - 9.5 x10(3)/mcL RBC 3.84 (L) 4.00 - 5.21 x10(6)/mcL Hemoglobin 11.0 (L) 11.7 - 15.5 g/dL Hematocrit 34.2 (L) 35.7 - 45.8 % MCV 89.1 82.6 - 94.4 fL MCH 28.6 27.1 - 32.0 pg MCHC 32.2 31.7 - 35.0 g/dL Platelets 243 145 - 357 x10(3)/mcL RDWSD 44.7 37.0 - 46.0 fL RDWCV 13.7 11.5 - 14.1 % MPV 10.9 7.6 - 12.9 fL nRBC % Auto 0.0 % nRBC Abs Auto 0.000 0.000 - 0.000 x10(3)/mcL Differential, Automated Result Value Ref Range Neutrophils % 68.5 % Neutr Abs (ANC) 5.89 1.70 - 6.10 x10(3)/mcL Lymphocytes % 24.0 % Lymphocytes Abs 2.1 0.9 - 3.2 x10(3)/mcL Monocytes % 5.6 % Monocyte Abs 0.5 0.3 - 0.9 x10(3)/mcL Eosinophils % 1.4 % Eosinophils Abs 0.1 0.0 - 0.4 x10(3)/mcL Basophils % 0.3 % Basophils Abs 0.0 0.0 - 0.1 x10(3)/mcL Immature Gran % 0.20 % Micki Gran Abs 0.02 0.00 - 0.04 x10(3)/mcL POCT Glucose Result Value Ref Range POC Glucose 120 65 - 199 mg/dL POCT Glucose Result Value Ref Range POC Glucose 130 65 - 199 mg/dL POCT Glucose Result Value Ref Range POC Glucose 112 65 - 199 mg/dL POCT Glucose Result Value Ref Range POC Glucose 95 65 - 199 mg/dL Studies: Exam: Temp: [36.6 ??C (97.9 ??F)-36.9 ??C (98.4 ??F)] Heart Rate: [60-63] Resp: [16-18] BP: (113-127)/(60-69) SpO2: [91 %-96 %] Heart Rate from SpO2: [64 bpm-71 bpm] I/O last 3 completed shifts: In: 1100 [P.O.:1100] Out: 4650 [Urine:4650] No intake/output data recorded. Gen: resting comfortably, no distress, alert and oriented x3 Pulm: non-labored breathing Card: normal rate/rhythm Abd: soft, non-tender, non-distended, incision clean, dry, intact, no purulent drainage Ext: no edema Neuro: mentating appropriately, moving all extremities without difficulty Discharge to: Home Discharge Conditions/Prognosis: Stable Discharge Medications: Your Medications New Medications Dose Details acetaminophen 500 mg tablet Commonly known as: Tylenol Take 2 tablets by mouth every 6 hours. 1,000 mg Quantity: 30 tablet Refills: 0 enoxaparin 40 mg/0.4 mL Syrg Commonly known as: Lovenox Inject 0.4 mLs subcutaneously 2 times daily for 10 days. 40 mg Quantity: 8 mL Refills: [address] capsule Commonly known as: PriLOSEC Take 1 capsule by mouth daily for 90 days. 40 mg Quantity: 30 capsule Refills: 2 ondansetron ODT 4 mg disintegrating tablet Commonly known as: Zofran-ODT Take 1 tablet by mouth every 8 hours as needed for Nausea. 4 mg Quantity: 20 tablet Refills: 0 oxyCODONE 5 mg tablet Commonly known as: Roxicodone Take 1 tablet by mouth every 4 hours as needed for Pain. 5 mg Quantity: 12 tablet Refills: 0 ursodioL 250 mg tablet Commonly known as: Swathi 250 Take 1 tablet by mouth 2 times daily for 180 days. 250 mg Quantity: 60 tablet Refills: 5 Continued medications, unchanged Dose Details BD Ultra-Fine Mini Pen Needle 31 gauge x 3/16 Ndle UES WITH LANTUS ONCE A DAY Generic drug: insulin needles (disposable) Refills: 0 BLOOD SUGAR DIAGNOSTIC, DISC MISC by NOT APPLICABLE route. Refills: 0 Blood-Glucose Meter Misc by NOT APPLICABLE route. Refills: 0 clotrimazole 1 % Crea Commonly known as: LOTRIMIN Apply topically. Refills: 0 lancets Misc by NOT APPLICABLE route. Refills: 0 levothyroxine 50 mcg tablet Commonly known as: Synthroid Take 50 mcg by mouth daily. 50 mcg Refills: 0 metFORMIN 500 mg tablet Commonly known as: Glucophage Take 1,000 mg by mouth 2 times daily. 1,000 mg Refills: 0 nystatin-triamcinolone Crea Commonly known as: MYCOLOG II APPLY TO AFFECTED AREA(S) TWO TIMES A DAY Refills: 0 rosuvastatin 5 mg tablet Commonly known as: Crestor Take 2.5 mg by mouth daily. 2.5 mg Refills: 0 triamcinolone 0.1 % Crea Commonly known as: Kenalog as needed. Refills: 0 ustekinumab 90 mg/mL subcutaneous injection Commonly known as: Stelara Inject 1 mL subcutaneously Every 12 weeks. 90 mg Quantity: 1 mL Refills: 1 STOPPED Medications aspirin EC 81 mg EC () tablet Ibuprofen 200 mg Cap Lantus Solostar U-100 Insulin 100 unit/mL (3 mL) pen Generic drug: insulin glargine UNREVIEWED medications - Discuss With Your Provider Dose Details calcipotriene 0.005 % Crea Commonly known as: Dovonex Apply to lesions on body twice a day - Quantity: 120 g Refills: 0 * clobetasoL 0.05 % Soln Commonly known as: TEMOVATE Apply topically to the scalp once daily for 2 weeks then take a week off and then repeat as needed Quantity: 50 mL Refills: 1 * clobetasoL 0.05 % Oint Commonly known as: Temovate Apply topically twice a day on weekends, avoid face. Quantity: 60 g Refills: 0 ketoconazole 2 % Crea Commonly known as: Nizoral Apply topically to areas under the breast and in the groin once daily for 3 weeks. Then use a few times weekly for maintenance. Quantity: 60 g Refills: 3 tacrolimus 0.1 % Oint Commonly known as: Protopic Apply to areas of psoriasis twice daily on week Quantity: 100 g Refills: 3 * This list has 2 medication(s) that are the same as other medications prescribed for you. Read thedirections carefully, and ask your doctor or other care provider to review them with you. Updated Allergies/ADRs: No Known Allergies PCP: Carolynn Wisdom APRN Scheduled Appointments: Future Appointments Date Time Provider Department Center 11/09/2022 12:30 PM Marjorie Holman APRN [facility] 02/15/2023 12:30 PM Marjorie Holman APRN [facility] 07/11/2023 2:00 PM Karla Woody APRN [facility] Outpatient Services/Studies: No discharge procedures on file. Instructions Given to Patient at Discharge:. An After Visit Summary was printed and given to the patient. Patient Instructions BARIATRIC SURGERY DISCHARGE INFORMATION BARIATRIC SUPPORT TEAM CONTACT NUMBERS (Mon-Fri 8am - 5pm): General Surgery and Bariatric Surgery [phone] Bariatric Surgeons: Mike Davidson and Trus [phone] Inside Phone Sales: [phone] Dietitians: [phone] Outside of regular business hours, including weekends and holidays: Ask for General Surgery resident computer numerical control machinist [phone] Please note, this call will be answered by a resident, and they may not be Able to return your call for many hours FOR EMERGENCIES: CALL 911 (trouble breathing, chest pain, rapid heart rate >120 beats per minuteor severe abdominal pain) CALL THE BARIATRIC TEAM FOR ANY OF THE FOLLOWING: ?? Signs and symptoms of infection such as: - Redness or swelling or new significant drainage from wounds - Drainage or bleeding from wounds - Fever over 101 degrees Fahrenheit, or shaking chills ?? Persistent diarrhea or vomiting or inability to keep down food or fluids down in a 24 hour period. ?? Signs / symptoms of a blood clot: leg swelling, redness, or pain, shortness of breath ?? Problems with urination or constipation, worsening abdominal pain not controlled with pain medication ?? Any concerns you may have after your surgery Follow up Information: You have a surgical followup appointment with The Bariatric Surgery Team in 3 weeks at the General Surgery Outpatient Clinic ([address], [facility] Future Appointments Date Time Provider Department Center 11/09/2022 12:30 PM Marjorie Holman APRN [facility] 02/15/2023 12:30 PM Marjorie Holman APRN [facility] 07/11/2023 2:00 PM Karla Woody APRN [facility] [address] BATHING AND WOUND CARE: ?? You may shower 2 days after surgery ?? Wash incisions with unscented mild soap ?? Rinse, pat dry and leave open to air. ?? Remove Steri-strips if they don't fall off by 7-10 days after discharge. Pat dry if they become wet. ?? Do not soak wound (no baths, no swimming) for 3 weeks after surgery ACTIVITY, LIFTING AND DRIVING: ?? For laparoscopic surgery: there are no lifting restrictions. Lift when you feel comfortable. ?? Do not drive if you are taking narcotic pain medication. When you are no longer taking narcotic pain medication and when it no longer causes pain to get in and out of the vehicle, you may drive when comfortable. DIET: ?? Follow Stage II diet for two weeks. ?? Keep a log of your intake: Daily goals are: 48-64 ounces of fluids and 60 grams of protein. MEDICATIONS: ?? For 2 WEEKS: LARGE pills (bigger than the size of an eraser on the end of a pencil) must be crushed. Capsules must be opened and put on applesauce or pudding. ?? Pills smaller than the size of an eraser DO NOT need to be crushed. ?? Not all medications can be crushed. Check with your pharmacist if unsure. ?? HOLD bariatric vitamins for 2 weeks after surgery (unless you have one that is chewable or liquid) Size Template: BLOOD CLOT PREVENTION: ?? You DO meet scoring criteria and will be discharged on enoxaparin injections twice daily for 10 days after you go home to prevent blood clots. Be active, walk at least 4 times a day and do blood clot prevention exercises in your handbook on page 82. IF YOU ARE TREATED FOR OBSTRUCTIVE SLEEP APNEA: ?? IMPORTANT - you MUST use your CPAP/ BIPAP after surgery while sleeping at night and also when napping during the day because some medications you may have been prescribed at discharge can decreaseyour breathing. ?? Follow up with the Sleep Center if pressure seems to be too high. ULCER PREVENTION: ?? IMPORTANT - starting the day after discharge, you must take acid suppressing medication for 3 MONTHS after surgery. This is taken to prevent ulcers at your surgical sites internally, even if you do not have heartburn. ?? omeprazole 40 mg daily (or another medication you may currently take for heartburn/reflux that has been discussed with Bariatric Team) ?? Omeprazole capsules contain enteric-coated, delayed-release granules. It is ok to swallow this capsule, but if you choose, you can OPEN the capsules, sprinkle the enteric-coated granules on applesauce or yogurt. Alternatively, you may take the granules with apple juice, or swallow them quickly with water. Follow any of these methods with additional water to ensure that you have swallowed the granules completely. ?? If your insurer does not cover omeprazole, or similar medications such as pantoprazole, you mustpurchase these medications over the counter. ?? You will continue this after the initial 3 month course if you have heartburn or reflux GALLSTONE PREVENTION: ?? Since you still have your gallbladder after Bariatric Surgery - you must take start taking Ursodiol (Actigall) 250 mg twice a day to prevent gallstones. You may START this medication 2 weeks aftersurgery for a duration of 6 months. After that, you may stop this medication unless otherwise directed. If you find that this medication costs too much, and/or your insurance will not pay for it, you maybe eligible for assistance to pay for this with [employer]. Go to [email or web address] and put in the prescription and the pharmacy you would like to pick it up from, and you may be able to get the medication at a significantly reduced reyes. PAIN MEDICATION: ?? Your pain should lessen with each day out from surgery. Over the next couple of days you should be requiring less narcotic medication to control your pain, and eventually you will not need any at all. ?? Take the medication exactly as it is prescribed and make sure to read all instructions that comewith the medication. Take only as needed. ?? You may adjunct your pain control using scheduled Tylenol (acetaminophen), use as directed. Do NOT use NSAIDS (ibuprofen, Motrin, Aleve, Toradol, aspirin, etc.) to adjunct your pain control. ?? Opioids can slow reaction time, cause drowsiness or cloud judgement. You MUST NOT DRIVE while taking narcotic pain medication. ?? Taking more than the prescribed amount of narcotic or combining with alcohol or drugs can cause you to stop breathing, leading to coma, brain damage or . ?? Using this drug may cause addiction. While addiction is more common in people with a personal orfamily history of addiction, it can occur in anyone. ?? Opioids are at risk of being diverted by anyone with access to your home. Opioids should be stored in a safe and secure place, such as a locked cabinet or safe. ?? Unused opioids should be disposed of appropriately. They may be returned to a take-back location, or mixed with a small amount of water and poured over an undesirable waste such as used coffee grounds or cat litter. ?? Opioid pain medications can cause significant constipation. You should use a stool softener suchas Miralax to address this. OTHER MEANS FOR PAIN RELIEF: Other than medications. ?? Learn deep breathing exercises or meditation to help you relax ?? Reduce stress ?? Your body produces natural endorphins from exercise which can help reduce pain. Even walking is considered exercise. Talk with your provider/surgical team about what exercises are appropriate for you to perform. ?? You may use a heating pad or apply ice to the painful area unless specifically discouraged by the surgical team. ?? Find ways to distract yourself from the pain. CONSTIPATION: ??? Your goal is at least 1 BM per day. ??? Be sure you are meeting your fluid goals and moving/walking. ??? Take 1 capful of Miralax daily (preferably at night) o You can increase the dose as needed every 2-3 days (by adding on 1 capful either morning or night) without safety concerns, noting that individual tolerance becomes limited by loose stools and bloating with doses higher than 2 capfuls twice daily. ??? A natural stool stimulant called Senna has been prescribed to you. This medication can be crushed and taken daily for the first week to avoid constipation. ??? If you do not have a bowel movement in 2 days, we recommend a dulcolax suppository. ??? Please call if you do not have a bowel movement within 3 days of surgery. ??? On days with loose stools, we recommend reducing Miralax to 1/2 capful daily but continue to take Miralax every day. CHANGES TO YOUR HOME MEDICATIONS ??? You may stop your insulin for now. Be sure to check your blood glucose at home 2-3 times per day. Follow up with your primary care provider, Carolynn Wisdom APRN in the next 1-2 weeks to discussyour blood glucose control. Please see below for more details about monitoring your blood sugar at home. MEDICATIONS TO AVOID FOR TWO MONTHS AFTER SURGERY: ?? Discontinue anti-inflammatory non-steroidal medications, such as Advil, Aleve, etc. Refer to Medications that may increase the risk of bleeding in handbook. ?? If you do take aspirin for your heart or to prevent strokes, continue as prescribed. MANAGEMENT OF DIABETES MELLITUS AFTER BARIATRIC SURGERY: ?? IMPORTANT to check blood sugars four times a day, fasting blood sugars, 2 hours after meals and as needed when feeling unwell. ?? Patients on oral diabetic medication: If blood sugar is over 200 on more than 3 checks, call your primary care physician or diabetic specialist for recommendations. For patients on insulin and oral diabetic medications: If blood sugar is over 200 on 3 checks, call your primary care doctor or diabetic specialist for recommendations. ?? Follow up with primary care provider or multi media specialist in 1-2 weeks in order to adjust yourchanging diabetes treatment requirements. PATIENTS ON ANTI-DEPRESSANT OR MENTAL HEALTH MEDICATIONS: ?? Do not stop or decrease your medications unless advised. ?? Ongoing counseling is encouraged. VITAMIN AND MINERAL SUPPLEMENTATION: START at 2 weeks post surgery Vitamin B12 500 mcg pill daily Complete multivitamin w/ minerals One pill twice daily. If a bariatric specific multivitamin, follow the package directions Calcium Calcium citrate 600 mg with vitamin D 400 units twice a day between meals. Iron with vitamin C Take iron as instructed per Handbook - (only if you have anemia, iron deficiency or regular menses) FOLLOW-UP CARE: ?? It is IMPORTANT to see your Primary Care Physician or PCP within 10-14 days after surgery for wound check and vital signs check, and to discuss specific medical management as referenced above. ?? You should follow up with your surgeon and dietitian at 3-4 weeks after surgery. ?? You will follow up with the dietitian and Bariatric nurse practitioner at 4, 12, 18, and 24 months, then yearly for life. General Instructions None Halima De La Rosa MD 10/21/22 10:28 AM MISpager [phone] documented in this encounter Discharge Instructions * Patient Instructions* Halima De La Rosa MD - 10/19/2022 8:31 PM EDT Images from the original note were not included. BARIATRIC SURGERY DISCHARGE INFORMATION BARIATRIC SUPPORT TEAM CONTACT NUMBERS (Mon-Fri 8am - 5pm): General Surgery and Bariatric Surgery [phone] Bariatric Surgeons: Mike Davidson and Peter [phone] Inside Phone Sales: [phone] Dietitians: [phone] Outside of regular business hours, including weekends and holidays: Ask for General Surgery resident computer numerical control machinist [phone] Please note, this call will be answered by a resident, and they may not be Able to return your call for many hours FOR EMERGENCIES: CALL 911 (trouble breathing, chest pain, rapid heart rate >120 beats per minuteor severe abdominal pain) CALL THE BARIATRIC TEAM FOR ANY OF THE FOLLOWING: Signs and symptoms of infection such as: - Redness or swelling or new significant drainage from wounds - Drainage or bleeding from wounds - Fever over 101 degrees Fahrenheit, or shaking chills Persistent diarrhea or vomiting or inability to keep down food or fluids down in a 24 hour period. Signs / symptoms of a blood clot: leg swelling, redness, or pain, shortness of breath Problems with urination or constipation, worsening abdominal pain not controlled with pain medication Any concerns you may have after your surgery Follow up Information: You have a surgical followup appointment with The Bariatric Surgery Team in 3 weeks at the General Surgery Outpatient Clinic ([address], [facility]). Future Appointments Date Time Provider Department Center 11/09/2022 12:30 PM Marjorie Holman APRN [facility] 02/15/2023 12:30 PM Marjorie Holman APRN [facility] 07/11/2023 2:00 PM Karla Woody APRN [facility] [address] BATHING AND WOUND CARE: You may shower 2 days after surgery Wash incisions with unscented mild soap Rinse, pat dry and leave open to air. Remove Steri-strips if they don't fall off by 7-10 days after discharge. Pat dry if they become wet. Do not soak wound (no baths, no swimming) for 3 weeks after surgery ACTIVITY, LIFTING AND DRIVING: For laparoscopic surgery: there are no lifting restrictions. Lift when you feel comfortable. Do not drive if you are taking narcotic pain medication. When you are no longer taking narcotic pain medication and when it no longer causes pain to get in and out of the vehicle, you may drive when comfortable. DIET: Follow Stage II diet for two weeks. Keep a log of your intake: Daily goals are: 48-64 ounces of fluids and 60 grams of protein. MEDICATIONS: For 2 WEEKS: LARGE pills (bigger than the size of an eraser on the end of a pencil) must be crushed. Capsules must be opened and put on applesauce or pudding. Pills smaller than the size of an eraser DO NOT need to be crushed. Not all medications can be crushed. Check with your pharmacist if unsure. HOLD bariatric vitamins for 2 weeks after surgery (unless you have one that is chewable or liquid) Size Template: BLOOD CLOT PREVENTION: You DO meet scoring criteria and will be discharged on enoxaparin injections twice daily for 10 days after you go home to prevent blood clots. Be active, walk at least 4 times a day and do blood clotprevention exercises in your handbook on page 82. IF YOU ARE TREATED FOR OBSTRUCTIVE SLEEP APNEA: IMPORTANT - you MUST use your CPAP/ BIPAP after surgery while sleeping at night and also when napping during the day because some medications you may have been prescribed at discharge can decrease your breathing. Follow up with the Sleep Center if pressure seems to be too high. ULCER PREVENTION: IMPORTANT - starting the day after discharge, you must take acid suppressing medication for 3 MONTHS after surgery. This is taken to prevent ulcers at your surgical sites internally, even if you do not have heartburn. omeprazole 40 mg daily (or another medication you may currently take for heartburn/reflux that has been discussed with Bariatric Team) Omeprazole capsules contain enteric-coated, delayed-release granules. It is ok to swallow this capsule, but if you choose, you can OPEN the capsules, sprinkle the enteric-coated granules on applesauce or yogurt. Alternatively, you may take the granules with apple juice, or swallow them quickly withwater. Follow any of these methods with additional water to ensure that you have swallowed the granu les completely. If your insurer does not cover omeprazole, or similar medications such as pantoprazole, you must purchase these medications over the counter. You will continue this after the initial 3 month course if you have heartburn or reflux GALLSTONE PREVENTION: Since you still have your gallbladder after Bariatric Surgery - you must take start taking Ursodiol(Actigall) 250 mg twice a day to prevent gallstones. You may START this medication 2 weeks after surgery for a duration of 6 months. After that, you may stop this medication unless otherwise directed. If you find that this medication costs too much, and/or your insurance will not pay for it, you maybe eligible for assistance to pay for this with [employer]. Go to [email or web address] and put in the prescription and the pharmacy you would like to pick it up from, and you may be able to get the medication at a significantly reduced reyes. PAIN MEDICATION: Your pain should lessen with each day out from surgery. Over the next couple of days you should be requiring less narcotic medication to control your pain, and eventually you will not need any at all. Take the medication exactly as it is prescribed and make sure to read all instructions that come with the medication. Take only as needed. You may adjunct your pain control using scheduled Tylenol (acetaminophen), use as directed. Do NOT use NSAIDS (ibuprofen, Motrin, Aleve, Toradol, aspirin, etc.) to adjunct your pain control. Opioids can slow reaction time, cause drowsiness or cloud judgement. You MUST NOT DRIVE while taking narcotic pain medication. Taking more than the prescribed amount of narcotic or combining with alcohol or drugs can cause youto stop breathing, leading to coma, brain damage or . Using this drug may cause addiction. While addiction is more common in people with a personal or family history of addiction, it can occur in anyone. Opioids are at risk of being diverted by anyone with access to your home. Opioids should be stored in a safe and secure place, such as a locked cabinet or safe. Unused opioids should be disposed of appropriately. They may be returned to a take-back location, or mixed with a small amount of water and poured over an undesirable waste such as used coffee grounds or cat litter. Opioid pain medications can cause significant constipation. You should use a stool softener such asMiralax to address this. OTHER MEANS FOR PAIN RELIEF: Other than medications. Learn deep breathing exercises or meditation to help you relax Reduce stress Your body produces natural endorphins from exercise which can help reduce pain. Even walking is considered exercise. Talk with your provider/surgical team about what exercises are appropriate for youto perform. You may use a heating pad or apply ice to the painful area unless specifically discouraged by the surgical team. Find ways to distract yourself from the pain. CONSTIPATION: Your goal is at least 1 BM per day. Be sure you are meeting your fluid goals and moving/walking. Take 1 capful of Miralax daily (preferably at night) You can increase the dose as needed every 2-3 days (by adding on 1 capful either morning or night) without safety concerns, noting that individual tolerance becomes limited by loose stools and bloating with doses higher than 2 capfuls twice daily. A natural stool stimulant called Senna has been prescribed to you. This medication can be crushed and taken daily for the first week to avoid constipation. If you do not have a bowel movement in 2 days, we recommend a dulcolax suppository. Please call if you do not have a bowel movement within 3 days of surgery. On days with loose stools, we recommend reducing Miralax to 1/2 capful daily but continue to take Miralax every day. CHANGES TO YOUR HOME MEDICATIONS You may stop your insulin for now. Be sure to check your blood glucose at home 2-3 times per day. Follow up with your primary care provider, Carolynn Wisdom APRN in the next 1-2 weeks to discuss your blood glucose control. Please see below for more details about monitoring your blood sugar at home. MEDICATIONS TO AVOID FOR TWO MONTHS AFTER SURGERY: Discontinue anti-inflammatory non-steroidal medications, such as Advil, Aleve, etc. Refer to Medications that may increase the risk of bleeding in handbook. If you do take aspirin for your heart or to prevent strokes, continue as prescribed. MANAGEMENT OF DIABETES MELLITUS AFTER BARIATRIC SURGERY: IMPORTANT to check blood sugars four times a day, fasting blood sugars, 2 hours after meals and as needed when feeling unwell. Patients on oral diabetic medication: If blood sugar is over 200 on more than 3 checks, call your primary care physician or diabetic specialist for recommendations. For patients on insulin and oral diabetic medications: If blood sugar is over 200 on 3 checks, call your primary care doctor or diabetic specialist for recommendations. Follow up with primary care provider or multi media specialist in 1-2 weeks in order to adjust your changing diabetes treatment requirements. PATIENTS ON ANTI-DEPRESSANT OR MENTAL HEALTH MEDICATIONS: Do not stop or decrease your medications unless advised. Ongoing counseling is encouraged. VITAMIN AND MINERAL SUPPLEMENTATION: START at 2 weeks post surgery Vitamin B12 500 mcg pill daily Complete multivitamin w/ minerals One pill twice daily. If a bariatric specific multivitamin, follow the package directions Calcium Calcium citrate 600 mg with vitamin D 400 units twice a day between meals. Iron with vitamin C Take iron as instructed per Handbook - (only if you have anemia, iron deficiency or regular menses) FOLLOW-UP CARE: It is IMPORTANT to see your Primary Care Physician or PCP within 10-14 days after surgery for woundcheck and vital signs check, and to discuss specific medical management as referenced above. You should follow up with your surgeon and dietitian at 3-4 weeks after surgery. You will follow up with the dietitian and Bariatric nurse practitioner at 4, 12, 18, and 24 months,then yearly for life. documented in this encounter Medications at Time of Discharge Medication Sig Dispensed Refills Start Date End Date ondansetron ODT (Zofran-ODT) 4 mg disintegrating tablet Take 1 tablet by mouth every 8 hours as needed for Nausea. 20 tablet 10/20/2022 acetaminophen (Tylenol) 500 mg tablet Take 2 tablets by mouth every 6 hours. 30 tablet 10/20/2022 oxyCODONE (Roxicodone) 5 mg tablet Take 1 tablet by mouth every 4 hours as needed for Pain. 12 tablet 10/20/2022 BD Ultra-Fine Mini Pen Needle 31 gauge x 3/16 Needle UES WITH LANTUS ONCE A DAY 06/26/2022 nystatin-triamcinolon e (MYCOLOG II) Cream APPLY TO AFFECTED AREA(S) TWO TIMES A DAY 05/30/2022 clobetasoL (Temovate) 0.05 % OintmentIndications:I nverse psoriasis Apply topically twice a day on weekends, avoid face. 60 g 08/18/2021 tacrolimus (Protopic) 0.1 % OintmentIndications:I nverse psoriasis Apply to areas of psoriasis twice daily on weekdays 100 g 3 08/18/2021 BLOOD SUGAR DIAGNOSTIC, DISC MISC by NOT APPLICABLE route. 03/18/2020 lancets Misc by NOT APPLICABLE route. 03/18/2020 Blood-Glucose Meter Misc by NOT APPLICABLE route. 03/18/2020 levothyroxine (Synthroid) 50 mcg Tablet Take 50 mcg by mouth daily. 05/16/2021 metFORMIN (Glucophage) 500 mg Tablet Take 1,000 mg by mouth 2 times daily. 05/18/2021 rosuvastatin (Crestor) 5 mg Tablet Take 2.5 mg by mouth daily. 04/12/2021 clobetasoL (TEMOVATE) 0.05 % SolutionIndications:I nverse psoriasis Apply topically to the scalp once daily for 2 weeks then take a week off and then repeat as needed 50 mL 1 06/08/2021 ketoconazole (NIZORAL) 2 % CreamIndications:Inte rtrigo Apply topically to areas under the breast and in the groin once daily for 3 weeks. Then use a few times weekly for maintenance. 60 g 3 02/14/2021 calcipotriene (Dovonex) 0.005 % CreamIndications:Inve rse psoriasis Apply to lesions on body twice a day M-F 120 g 12/16/2020 triamcinolone (KENALOG) 0.1 % Cream as needed. 07/14/2020 clotrimazole (LOTRIMIN) 1 % Cream Apply topically. 07/13/2020 enoxaparin (Lovenox) 40 mg/0.4 mL Syringe Inject 0.4 mLs subcutaneously 2 times daily for 10 days. 8 mL 10/20/2022 10/30/2022 ursodioL (Swathi 250) 250 mg tablet Take 1 tablet by mouth 2 times daily for 180 days. 60 tablet 5 10/20/2022 04/18/2023 omeprazole (PriLOSEC) [address] capsule Take 1 capsule by mouth daily for 90 days. 30 capsule 2 10/20/2022 01/18/2023 ustekinumab (Stelara) 90 mg/mL subcutaneous injection Inject 1 mL subcutaneously Every 12 weeks. 1 mL 1 05/01/2022 01/31/2023 documented as of this encounter Progress Notes * Nakul Rodríguez RN - 10/21/2022 12:18 PM EDT Patient alert and oriented x4 VSS on room air. Patient independent in room up to toilet to void. Patient cleared for DC this morning. AVS reviewed with patient, questions answered. No further concerns at this time. Patient left via wheelchair assist to the entrance where family is coming to take her home. She DC'd home with no services. * Rozina Ahuja RN - 10/20/2022 4:26 PM EDT OUTCOME EVALUATION NOTE: OUTCOME SUMMARY: Patient AAOx4, no sign of distress or discomfort, respiration even and unlabored. Patient ambulatedin room and hallway, tolerated well. PLAN MOVING FORWARD: Encourage mobility Pain management INDIVIDUALIZED FALL PREVENTION INTERVENTIONS: Patient-specific fall risk factors per assessment: [current deficits]: Recent surgery Assistance [level of assistance required for transfers and ambulation]: One person assist Supervision [direct monitoring required during toileting and ADLs]: Standby assist Surveillance [continuous indirect monitoring]: Masimo, purposeful hourly rounding Patient-specific fall prevention interventions for sensory deficits provided, if applicable: [X] N/A CARE PLAN GOAL OUTCOME EVALUATION: Ongoing * Halima De La Rosa MD - 10/20/2022 8:42 AM EDT Minimally Invasive Surgery Inpatient Progress Note ID: Melinda Goncalves is a 62 y.o. female with h/o metabolic syndrome and BMI 39 who is now 1 Day Post-Op s/p lap David-en-Y gastric bypass(LRYGB). Subjective & 24hr events: ?? No acute events overnight ?? Pain well controlled ?? Tolerating clear liquids ?? No nausea, no vomiting ?? Ambulating in room ?? Voiding ?? Doing IS, ~1500cc ?? Only 1 unit of insulin given O: Last value Range last 24hrs Temperature Temp: 36.8 ??C (98.2 ??F) Temp: [36.6 ??C (97.9 ??F)-37.2 ??C (99 ??F)] Heart Rate Heart Rate: 62 Heart Rate: [55-68] Blood Pressure BP: 132/64 BP: (104-132)/(50-64) Respiratory Rate Resp: 18 Resp: [11-19] SpO2 SpO2: 95 % SpO2: [90 %-98 %] 10/19 0701 - 10/20 0700 In: 3142.1 [P.O.:40; I.V.:3102.1] Out: 913 [Urine:900] Intake and Output: I/O last 3 completed shifts: In: 3142.1 [P.O.:40; I.V.:3102.1] Out: 913 [Urine:900; Blood:13] No intake/output data recorded. Current Medications: Current Facility-Administered Medications Medication Dose Route Frequency Provider Last Rate Last Admin ??? levothyroxine (Synthroid) tablet 50 mcg 50 mcg Oral QAM Halima De La Rosa MD 50 mcg at 10/20/22 0658 ??? metFORMIN (Glucophage) tablet 1,000 mg 1,000 mg Oral BID Halima De La Rosa MD ??? sodium chloride 0.9 % (flush) (BD PosiFlush Normal Saline 0.9) flush 5 mL 5 mL Intravenous BID Halima De La Rosa MD ??? sodium chloride 0.9 % (flush) (BD PosiFlush Normal Saline 0.9) flush 5-20 mL 5-20 mL Intravenous Q1 Min PRN Halima De La Rosa MD ??? lidocaine (Xylocaine) 1% (10 mg/mL) injection 3 mg 0.3 mL Subcutaneous Once PRN Matt De La Rosa MD ??? ondansetron (pf) (Zofran) (2 mg/mL) injection 4 mg 4 mg Intravenous Q8H Halima Santos MD 4 mg at 10/20/22 0658 ??? HYDROmorphone (Dilaudid) (0.5 mg/0.5 mL) injection syringe 0.5 mg 0.5 mg Intravenous Q4H PRN Halima De La Rosa MD ??? [START ON 10/21/2022] celecoxib (CeleBREX) capsule 200 mg 200 mg Oral BID Halima De La Rosa MD ??? acetaminophen (Tylenol) tablet 1,000 mg 1,000 mg Oral Q6H Halima Santos MD ??? oxyCODONE (Roxicodone) tablet 5 mg 5 mg Oral Q4H PRN Halima De La Rosa MD ??? BUpivacaine (pf) (Marcaine) (2.5 mg/mL) 0.25% injection Once PRN Ronda Mckeon MD 30 mL at10/19/22 1319 ??? glucose (Glutose) 40% oral geL 15-30 g of glucose Buccal Q30 Min PRN Halima De La Rosa MD Or ??? dextrose 10% infusion 250 mL Intravenous Q30 Min PRN Halima De La Rosa MD Or ??? glucagon (Glucagen) (1 mg/mL) injection solution 1 mg 1 mg Intramuscular Q30 Min PRN Halima De La Rosa MD ??? insulin lispro (HumaLOG;Admelog) (100 unit/mL) subcutaneous injection vial 1-6 Units 1-6 Units Subcutaneous Q6H PRN Halima De La Rosa MD 1 Units at 10/19/22 1732 ??? lactated ringers infusion 1,000 mL Intravenous Continuous Halima De La Rosa MD 125 mL/hr at 10/20/22 0559 1,000 mL at 10/20/22 0559 ??? pantoprazole (Protonix) injection 40 mg 40 mg Intravenous Daily Halima De La Rosa MD 40 mg at 10/20/22 0920 ??? prochlorperazine (Compazine) (5 mg/mL) injection 10 mg 10 mg Intravenous Q6H PRN Halima De La Rosa MD 5 mg at 10/19/22 1451 ??? promethazine (Phenergan) (25 mg/mL) injection 6.25 mg 6.25 mg Intravenous Q4H PRN Halima De La Rosa MD Physical Exam: BP 132/64 (BP Location (NBP): Left arm, Patient Position: Lying) Pulse 62 Temp 36.8 ??C (98.2 ??F) (Oral) Resp 18 Ht 160 cm (5' 3) Wt 99.8 kg (220 lb) SpO2 95% BMI 38.97 kg/m?? General: awake, alert, no acute distress, pleasant HEENT: atraumatic, normocephalic, anicteric sclera CVS: RRR on monitor Pulm: unlabored breathing on room air Abd: soft, nontender, non-distended, incisions with clean/dry/intact dressing Skin: warm, dry Ext: warm, well perfused, no jaundice, no cyanosis, no edema Neuro: answers questions appropriately, nonfocal, moving all four extremities spontaneously Recent Labs 10/20/22 0852 10/20/22 0412 WBC 8.4 9.0 HGB 10.7* 10.7* HCT 32.5* 32.1* PLATELET 221 236 Recent Labs 10/20/22 0412 NA 137 K 4.0 CL 105 CO2 24 BUN 14 CREATININE 0.82 GLUCOSE 136 CALCIUM 8.4* MAGNESIUM 0.74 PHOS 3.8 New Imaging: No results found. Assessment: Melinda Goncalves is a 62 y.o. female with h/o metabolic syndrome and BMI39 who is now 1 Day Post-Op s/p LRYGB and recovering as expected. Plan: Neuro/Pain: pain control with scheduled Tylenol, BID Celebrex, PRN Roxicodone CV: HDS, will continue to monitor Pulm: incentive spirometer FEN/GI: stage II diet, LR @ 125 mL/hr, scheduled Zofran, scop patch, Compazine and Phenergan available Renal/: strict I/Os, monitor urine output Wound/ID: routine wound care Heme: will recheck CBC after lovenox injection to ensure stability Endocrine: ISS, metformin, levothyroxine Activity: OOB, up to chair Prophylaxis: SCDs, lovenox, education on injection Dispo: possible discharge later today pending continued meeting of discharge milestones including continued PO tolerance and stable labs after lovenox Discussed with attending. Signed: Halima De La Rosa MD General Surgery 9:40 AM 10/20/22 MIS service pager: [phone] Associated attestation - Ronda Mckeon MD - 10/20/2022 1:11 PM EDT I have seen and examined the patient, reviewed the history documented and I agree with the details as written. I have reviewed the available, pertinent laboratory data and imaging. The assessment andplan were formulated in discussion with me and I agree with them as documented. Ronda Mckeon MD * Jewel Burnett, [facility] - 10/20/2022 7:12 AM EDT Respiratory Care Consult Note Melinda Goncalves 1960 [id number] 10/19/2022 6:52 AM Hospital Day: 1 Reason for Consult: Pt is post op Gastric Bypass with Hx of HEATHER and use of NIV History: Melinda Goncalves is a 62 y.o. female with a PMHx significant for HEATHER, who was admitted to [facility] for Gastric Bypass. Home NIV: Yes - Device was set up and is ready for use tonight Assessment: Appearance: Pt is not in distress on Room air with sats in the mid 90s% Current Respiratory Therapy: IS with goals of 1500 demonstrated Recommendations: At this point in Melinda Goncalves stay I would suggest to use her NIV at HS as described by the Med staff pre surgery. I reviewed the rationale with her for using the device and how this will help her to maintain her lung volumes and de-stress her heart. Jewel Burnett RCP If we can be of further assistance please contact the Respiratory Department at Pager #[phone]. * Halima De La Rosa MD - 10/19/2022 6:44 PM EDT BRIEF MINIMALLY INVASIVE SURGERY POST-OP NOTE Patient evaluated at bedside on POD0. Pain is well controlled. Nausea well controlled. No vomiting. Tolerating PO. Has not yet ambulated.Has not yet voided BP 113/56 (BP Location (NBP): Left arm) Pulse 66 Temp 36.9 ??C (98.4 ??F) (Temporal) Resp 18 Ht 160 cm (5' 3) Wt 99.8 kg (220 lb) SpO2 92% BMI 38.97 kg/m?? General: no acute distress Neuro: awake, alert, answers questions appropriately Resp: unlabored breathing on room air Cardiac: physiologic rate Abdomen: non-distended, appropriately tender, dressings clean intact, mild strikethrough, no drainage or erythema about incisions Extremities: well perfused Melinda Goncalves is a 62 y.o. female POD0 from @LAPAROSCOPIC GASTROPLASTY W/ DAVID-EN-Y CONSTRUCTION (WRVU 29.4): 08744 (CPT??) EGD, UPPER GI ENDOSCOPY ([facility] 2.09): 30080 (CPT??) recovering as expected. Will be moving to floor bed shortly. Will need to ambulate to attempt void shortly. Continue post-op pathway Pain control Incentive spirometry Clear liquid diet Post-op nausea control Out of bed strict I/O, follow up void trial Will continue to monitor Halima De La Rosa MD 10/19/22 6:44 PM MISpager [phone] * Almaz Sanchez RN - 10/19/2022 4:16 PM EDT Break coverage 1929 Care assumed 1999 Hand off to MEGAN Iniguez [facility] * Wanda Guzman RN - 10/19/2022 1:53 PM EDT 1344: Pt arrived to PACU from OR. Monitor applied, alarms set and audible. Airway maintained. 1450: PRN compazine for nausea. 1551: Denies c/o, resting between care, veronica sips. 1720: Pain tolerable, /10. IS teaching given. Denies other c/o. 1915: Report given to MEGAN Muse. documented in this encounter H&P Notes * Halima De La Rosa MD - 10/19/2022 8:25 AM EDT [facility] Minimally Invasive Surgery Pre-Operative H&P Patient evaluated day of surgery. Please see below for details of patient history as adapted from last clinic visit.No new findings or changes to medical history. No recent illnesses, cough, fever, diarrhea. Plan to proceed with surgery. Halima De La Rosa MD 10/19/22 8:25 AM MISpager [phone] [facility] Bariatric Surgery Evaluation ? Reason for consultation: Melinda is a 62 y.o. female referred by Carolynn Wisdom APRN for consultation for consideration of surgical treatment of obesity. ?? Her preferred procedure: David-en-Y gastric bypass due to better outcomes and improvement in diabetes. ?? Prior bariatric surgery evaluations: None ? BARIATRIC SURGERY PROGRAM PATHWAY ?? Review of progress with the requirements of the Bariatric Surgery Program: ?? 1. Education: She [x]? has []? Has not attended a Introduction to the [facility] Bariatric Surgery Program seminar, a comprehensive two hour meeting that provides a program overview, education on bariatric surgeries offered at [facility], risks and benefits, as well as patient expectations and follow up. [facility] Educational seminars viewed 2. Bariatric Surgery Program evaluations with RD: Completed today 3. Program start weight 222 WT at visit #1: Wt & BMI By Encounter Date Flowsheet Row Office Visit from 07/31/2022 in General Surgery at [facility] Office Visit from 07/11/2022 [facility] Weight 99.8 kg (220 lb) 1 07/31/2022 1314 100.8 kg (222 lb 3.2 oz) 1 07/11/2022 1339 BMI 37.76 1 07/31/2022 1314 38.74 1 07/11/2022 1339 ? 4. Gallbladder status: [x]? intact, not studied. []? S/P cholecystectomy 5. VTE risk assessment: extended VTE prophylaxis [x]? is []? is not indicated post bariatric surgery discharge 6. Next steps in pathway: Additional testing/ consultations as determined as needed to be determined at today's visit. 8. HOSPITAL DISCHARGE NEEDS: [x]? Ursodiol [x]? PPI [x]? Lovenox (> 50 yo, HEATHER) ?? History of present illness: Melinda states that she has struggled with obesity for many years. The patient has tried multiple weight loss measures without sustainable success. Factors that she identifies as contributing to her obesity include: genetics, overconsumption and inactivity. She seeks bariatric surgery for health reasons. ?? Other motivating factors for seeking surgery for bariatric surgery: minimize wt related medical issues, lose wt and feel better. ?? Her goals of surgery: improve diabetes and improve energy. ?? Chronic diarrhea- which she directly relates to metformin Never had an issue with bowel function since starting metformin. She has 2-3 loose stools day, occasionally urgent and incontinent. Feels that her stools may correlate to her diet the day before, if she eats higher sugar foods will tend to have loose stool. Up to date with colonoscopy. ?? Psoriasis: F/b derm, currently taking Stelara, last injection 07/10/2022 ?? She denies binge eating, night eating disorder, self-induced vomiting, laxative or diuretic use or excessive exercise to lose weight. Hx of night eating and emotional eating- has been seen by Dr. Peterson in the past and has learned strategies to help manage these behaviors. Reports some of her issues had been d/t not eating as muchduring the day, which resulted in overeatng at night. Trying to make changes in daytime eating pattern/habit to minimize overeating at night. ?? Patient Active Problem List ?? Diagnosis ??? HEATHER (obstructive sleep apnea) ??? Hyperlipidemia ??? Inverse psoriasis ??? Migraine headache with aura ??? Subclinical hypothyroidism ??? Transient vision disturbance of left eye ??? Type 2 diabetes mellitus ??? Class 2 severe obesity due to excess calories with serious comorbidity and body mass index (BMI) of 38.0 to 38.9 in adult ? Pre-Bariatric Surgery Obesity related medical issues: ?? Problem Baseline issue if checked Comments Diabetes/prediabetes/insulin resistance [x]? Lantus and metformin, started meds 2018. Metabolic syndrome or PCOS []? ?? HTN []? ?? GERD []? ?? Hyperlipidemia [x]? On rosuvastatin HEATHER [x]? On CPAP 75% 07/2022, though notes has note been using the last couple weeks did not think she needed to. Musculoskeletal issues []? ?? Liver Disease []? ?? Other [x]? Psoriasis- on Stelara and multiple topicals ?? Functional status: Is ambulation limited most or all of the time? no Tolerance: she can walk a mile and climb a flight of stairs ?? ADLs: able to carry on without difficulty- [x]? independent []? partially dependent []? totally dependent []? Unknown ?? Lactose/ Food/ Wheat/ Latex allergy/sensitivity: denies ?? control plan: postmenopausal. ?? [facility] Preoperative Risk Assessment (negative if left blank): ?? General []? Current smoker within 1 year ?? Pulmonary []? COPD (Severe) []? History of pulmonary embolism ?? Cardiac []? History of myocardial infarction []? Previous PCI/PTCA []? Previous cardiac surgery ?? Vascular []? Vein thrombosis requiring therapy []? Venous stasis []? IVC filter IVC filter timing []? placed in anticipation of procedure []? IVC filter preexisting []? Unknown ?? Renal []? Currently requiring or on dialysis []? Renal insufficiency ?? Nutritional/Immune/Oncologyy/Other []? Steroid/Immunosuppressant use for chronic condition []? Therapeutic anticoagulation []? Previous obesity surgery/foregut surgery ?? Past Surgical History Past Surgical History: Procedure Laterality Date ??? APPENDECTOMY ? Current Outpatient Medications: ??? BD Ultra-Fine Mini Pen Needle 31 gauge x 3/16 Needle, UES WITH LANTUS ONCE A DAY, Disp: , Rfl: ??? nystatin-triamcinolone (MYCOLOG II) Cream, APPLY TO AFFECTED AREA(S) TWO TIMES A DAY, Disp: , Rfl: ??? ustekinumab (Stelara) 90 mg/mL subcutaneous injection, Inject 1 mL subcutaneously Every 12 weeks., Disp: 1 mL, Rfl: 1 ??? clobetasoL (Temovate) 0.05 % Ointment, Apply topically twice a day on weekends, avoid face. (Patient not taking: Reported on 07/11/2022), Disp: 60 g, Rfl: 0 ??? tacrolimus (Protopic) 0.1 % Ointment, Apply to areas of psoriasis twice daily on weekdays (Patient not taking: Reported on 07/11/2022), Disp: 100 g, Rfl: 3 ??? BLOOD SUGAR DIAGNOSTIC, DISC MISC, by NOT APPLICABLE route., Disp: , Rfl: ??? lancets Misc, by NOT APPLICABLE route., Disp: , Rfl: ??? Blood-Glucose Meter Misc, by NOT APPLICABLE route., Disp: , Rfl: ??? aspirin EC 81 mg Tablet, Delayed Release (E.C.), Take by mouth., Disp: , Rfl: ??? Lantus Solostar U-100 Insulin pen, 36 Units. Every evening, Disp: , Rfl: ??? levothyroxine (Synthroid) 50 mcg Tablet, Take 50 mcg by mouth daily., Disp: , Rfl: ??? metFORMIN (Glucophage) 500 mg Tablet, Take 1,000 mg by mouth 2 times daily., Disp: , Rfl: ??? rosuvastatin (Crestor) 5 mg Tablet, Take 2.5 mg by mouth daily., Disp: , Rfl: ??? clobetasoL (TEMOVATE) 0.05 % Solution, Apply topically to the scalp once daily for 2 weeks thentake a week off and then repeat as needed (Patient not taking: Reported on 07/11/2022), Disp: 50 mL,Rfl: 1 ??? ketoconazole (NIZORAL) 2 % Cream, Apply topically to areas under the breast and in the groin once daily for 3 weeks. Then use a few times weekly for maintenance. (Patient not taking: Reported on 07/11/2022), Disp: 60 g, Rfl: 3 ??? calcipotriene (Dovonex) 0.005 % Cream, Apply to lesions on body twice a day M-F (Patient not taking: Reported on 07/11/2022), Disp: 120 g, Rfl: 0 ??? triamcinolone (KENALOG) 0.1 % Cream, as needed., Disp: , Rfl: ??? clotrimazole (LOTRIMIN) 1 % Cream, Apply topically., Disp: , Rfl: ?? NSAID use: on occasion for headaches. ?? No Known Allergies ?? Family History Family History Problem Relation Age of Onset ??? Hyperlipidemia Mother ? Heart Disease Father ? Type 2 Diabetes Brother ? Diabetes Maternal Grandfather ? Cancer Maternal Grandfather ? Diabetes Paternal Grandmother ? Sleep Apnea Daughter ? Breast Cancer Neg Hx ? Social History ?? Socioeconomic History ??? Marital status: ? Spouse name: Not on file ??? Number of children: Not on file ??? Years of education: Not on file ??? Highest education level: Not on file Occupational History ??? Not on file Tobacco Use ??? Smoking status: Former ? Packs/day: 0.25 ? Years: 3.00 ? Pack years: 0.75 ? Types: Cigarettes ? Quit date: 12/31/1989 ? Years since quittin.6 ??? Smokeless tobacco: Never Substance and Sexual Activity ??? Alcohol use: Yes ? Alcohol/week: 3.0 standard drinks ? Types: 1 Glasses of wine, 2 Cans of beer per week ??? Drug use: Never ??? Sexual activity: Not Currently ? Partners: Male Other Topics Concern ??? Not on file Social History Narrative ??? Not on file ?? Social Determinants of Health ?? Financial Resource Strain: Not on file Food Insecurity: Not on file Transportation Needs: Not on file Physical Activity: Not on file Housing Stability: Not on file ? In the past year: ?? Q ALCOHOL TOBACCO AND DRUG SCREENING TOOL 07/31/2022 How often did you have a drink containing alcohol in the past year? Consider a 'drink' to be a can or bottle of beer, a glass of wine, a wine cooler, or one cocktail or a shot of hard liquor (like scotch, gin, or vodka) 2 to 3 times a week How many drinks containing alcohol did you have on a typical day when you were drinking in the pastyear? 1 to 2 drinks How often did you have six or more drinks on one occasion in the past year? Never Do you use tobacco or nicotine products (vaping, e-cigarettes, patches, or gum)? No In the past year have you used an illegal drug or a prescription medication for non medical reasons? No Do you use marijuana, including use for medical reasons, or synthetic marijuana products (K2, Spice, or other brands)? No ? Diagnostic screenin. Lab data: Sending to the lab today. ?? 2. Psychological evaluation done by Susan Mohan, PhD, [facility] Weight and Wellness : no contraindication to bariatric surgery from a psychological perspective. ? [facility] Initial Responses 07/31/2022 URICA - Readiness Score - WEL-SF Total Scores - PHQ-2 SubScore - GAD2 Subscore - MARIMAR 7 Total Scores - PROMIS 10 Physical Scores 42.3 PROMIS 10 Mental Scores 43.5 Total REAP-S Scores - TFEQ - Uncontrolled Eating (UE) - TFEQ-Cognitive Restraint (CR) - TFEQ-Emotional Eating - Food Insecurity Score 2 [place] Category I Result - [place] Category II Result - [place] Category III - [place] Sleep Apnea Total - Schooling Graduated from college Importance of making a change 10 - Very Important Confidence to make change 8 Most weighed 256 Age most weighed 46 Times lost 10 lbs or more 6 to 10 Lost weight how? Ate less food, Exercised Worried food would run out before we got money to buy more Never true Food didnt last; no money to get more Never true ?? DPRP Score: 5 ? Bariatric Surgery VTE Risk Assessment Score Patients will be considered to be at high risk if they have one or more of the following: ?? []? Previous VTE or BMI >/= 60 kg/m2 Or two or more of the following: ? [x]? Age > 50 []? BMI >/= 50 kg/m2 []? Male sex []? Recent tobacco use [x]? Obstructive sleep apnea []? Venous insufficiency/ varicose veins []? OCP or HRT within 30 days of surgery Total: ?? extended VTE prophylaxis [x]? is []? is not indicated post bariatric surgery discharge Patients are advised to stop HRT and OCP/ DMPA 1 month prior to surgery and hold for 1 month postop, and use control during this time if appropriate. All patients who take coumadin/ anti-10Ainhibitors preoperatively are referred to the Thrombosis Clinic for recommendations. ?? Review of Systems (negative if left blank): GI: []? dysphagia []? early satiety []? abdominal pain []? hernia []? prior CT scan abdomen []? nausea/vomiting []? blood in stool [x]? diarrhea []? constipation []? IBD []? postprandial RUQ pain Neurologic: []? dizziness []? chronic headaches Cardiovascular: []? history of chest pain, squeezing, pressure []? syncope [x]? murmur (benign) []? palpitations Respiratory: []? shortness of breath []? wheezing : []? hematuria []? history of renal calculi Musculoskeletal []? myalgia/arthralgias: Extremities: []? varicose veins []? edema Skin: [x]? skinfold rashes []? chronic wounds Endocrine: []? PCOS [x]? thyroid disease Heme/Lymph: []? excessive bruising []? lymphadenopathy []? iron deficiency history Allergic/ Immun: []? use of steroid/ immunosuppressant for chronic condition Psychiatric [x]? depression []? anxiety/panic attacks []? history of suicide attempt []? addiction []? psychiatric or rehab admissions ?? Physical exam: Vital signs: Patient Vitals for the past 24 hrs: ?? Temp Pulse Resp BP SpO2 07/31/22 1314 36.6 ??C (97.8 ??F) 68 18 130/75 98 % ?? Body mass index is 37.76 kg/m??. Neuro: Non-focal. Psych: Pleasant, conversant, normal affect, cognition and mood. Behavior:[]? defensive []? hostile []? expressive []? quiet []? monopolizing []? argumentative [x]? insightful []? insightless[]? fidgety [x]? motivated []? apathetic []? preoccupied []? negativistic []? disruptive [x]? attentive Mood: [x]? stable []? labile []? depressed []? happy []? anxious []? hypomanic []? intense []? angry []? worrisome []? flat []? detached []? fearful []? sad ?? ENT: Neck supple with normal ROM, no adenopathy or thyromegaly. Lungs: CTA bilaterally without wheezing. Heart: RRR, no murmur appreciated. Abdomen: Obese, soft, non- tender. Prior incisions: Well healed vertical incision consistent with appy.. Hernias: None. Extremities: no lower extremity edema. Skin: No areas of skin breakdown. Obesity distribution: []? Central []? Gyneoid ? Assessment/ Plan: 62 y.o. female with morbid obesity with obesity-related comorbidities including type 2 diabetes, obstructive sleep apnea, ?? She has had failure to sustain weight loss by medical management and meets the criteria proposed bythe NIH Consensus Guidelines for surgical treatment of severe obesity and the AACE, TOS, ASMBS Clinical Practice Guidelines for the Perioperative Nutritional, Metabolic and Non-surgical Support of the Bariatric Surgery Patient. She is aware that there are non-surgical methods to achieve weight loss. ?? This patient was seen in conjunction with Dr. Mckeon?as part of a shared visit-?please see their note for further information regarding medical decision making. ?? After review of her medical record, history and physical exam, I find her to be a good candidate for bariatric surgery. She is interested in a David-en-Y gastric bypass. ? We discussed the procedures of laparoscopic sleeve gastrectomy and laparoscopic david en y gastric bypass. The patient would like to proceed with a laparoscopic david en y gastric bypass. We discussed the benefits of surgery as well as the small but real risks including but not limited to need for open surgery, bleeding, infection, anastomotic leak, DVT and pulmonary embolis, stricture, postoperative reflux and . We discussed the possibility of poor weight loss and the need to make sustaineddietary changes in order for the surgery to be successful. Patient understands the [facility] risks of vitamin deficiencies, internal hernias and ulcers. Patient realizes the need for life long followup with the bariatric surgery program and understands the importance of the preoperative diet in terms of safety and ability to perform the procedure. Consent was signed today. ?? She has had an opportunity to have all her questions answered and is in agreement with the plan of care. She was encouraged to call with any questions or concerns. Pending: ??? Pt has new insurance and is awaiting insurance card. Will submit for insurance approval once pthas new card. She will call office with new insurance info. ??? Dr. Mckeon to reach out to pt's forecast analyst re: Stelara and confirm plan to schedule surgery for week 13 s/p last Stelara dose which was 07/10/22. ??? Continue CPAP use and compliance. Reviewed risks of untreated/undertreated HEATHER pre/rachel/post operatively. Consider repeat compliance report. ??? Preoperative Group Class ??? CBC and CMP within 6 months of surgery, per [facility] [place] guidelines. (Sent to lab today). ??? Ongoing weight loss encouraged ? I spent a total of 60 minutes associated with this encounter, including chart review, the patient encounter, and documentation. Marjorie Holman APRN ?? * Ronda Mckeon MD - 10/19/2022 8:24 AM EDT I have seen and examined the patient in pre-op holding. There are no new interval changes to the history and physical. Will plan to proceed with laparoscopic RNYGB with possible liver biopsy and EGD. Ronda Mckeon MD Source Note - Marjorie Holman APRN - 10/03/2022 1:00 PM EDT BARIATRIC SURGERY PROGRAM [place], [place] [id number] Reason for visit: [facility] for up coming bariatric surgery Melinda attended a comprehensive group pre-operative class today, which included discussion of pre and post operative instructions included in the [facility] Bariatric Surgery Program Education Handbook. The nutrition component of the class was taught by the BSP RD. Patient completed health update form. No new medical issues/ED visit. Medications/allergies are reviewed, otherwise today's visit was group visit. Last Stelara injection was 07/10/22 Discussion re: CPAP compliance, pt has not been using her CPAP. Reviewed risk associated with under/untreated sleep apnea from a surgical and post op perspective including lung, heart complications and . Discussed with pt that if she is unable to use her CPAP and meet compliance criteria that we need to cancel surgery. Pt notes that she will start her CPAP today, we will plan to run compliance report on 10/16/22 in preparation for her surgery on 10/19/22, she verbalizes understands that if she does not have >70% compliance for > 4 hours that we will cancel surgery. Surgery info: Patient is scheduled for laparoscopic David-en-Y gastric bypass on 10/19/[address] Mckeon. ?? Pre-Bariatric Surgery Obesity related medical issues: ?? Problem Baseline issue if checked Comments Diabetes/prediabetes/insulin resistance [x]? Lantus and metformin, started meds 2018. Metabolic syndrome or PCOS []? ?? HTN []? ?? GERD []? ?? Hyperlipidemia [x]? On rosuvastatin HEATHER [x]? On CPAP 75% 07/2022,has stopped using- will resume today and check compliance report beforesurgery Musculoskeletal issues []? ?? Liver Disease []? ?? Other [x]? Psoriasis- on Stelara and multiple topicals ?? Post Bariatric Surgery Medications: Extended VTE prophylaxis post surgery Indicated, to be started at discharge. Ursodiol gallstone prophylaxis Indicated, to be prescribed at discharge. PPI ulcer prophylaxis Indicated, to be prescribed at discharge. Contraception postmenopausal WT (lbs) BMI HT Highest wt Initial Pre-op visit 07/31/22 220 37.8 5'4 Post-op WT (lbs) BMI %EBW lost Preop labs:labs not yet completed. Reminded patient. Prescriptions provided at today's visit: none Bariatric Surgery Program Pathway and review of status with the requirements of the Bariatric Surgery Program 1. Education: Pt previously attended a Introduction to the [facility] Bariatric Surgery Program seminar,a two hour meeting that provides a program overview as well as expectations. The [facility] Bariatric Surgery Program Educational seminar requirement has been met. The [facility] Educational Handbook was providedat visit #1. 2. Pre-operative programmatic evaluations have been done, as noted in previous pathway review. 3. Bariatric Surgery Program evaluations with the surgeon and dietitian have taken place. Melinda has been approved to proceed with surgery by surgeon. 6. Surgical consultation has taken place Next steps in pathway: ?? During hospitalization for bariatric surgery, a standard bariatric surgery order set is followed. ?? Routine post-operative follow up with labwork is done at months 1,4,12 and 24, yearly thereafter, and PRN. High risk patients are followed more frequently. Some of the topics reviewed during group discussion today included: ?? day of surgery and post-op routine care/ locations: Admissions/SDP/PACU///2 [place] units ?? medications that increase the risk of bleeding including NSAIDs and anticoagulants to be avoidedper guidelines pre and post-operatively ?? DVT/VTE prevention and signs of DVT/PE. ?? Inpatient management for VTE prevention: venodynes, ambulation, Enoxaparin 40 units BID during inpatient stay. ?? Indications for extended Enoxaparin 10 days post discharge: A. patients with BMI >60 or prior VTE OR B. 2 or more of the following: age >50, BMI >50, male gender, sleep apnea, varicose veins, venous insufficiency, history of oral contraceptive or hormone or post-menopausal hormone replacement use within 30 days of surgery, and recent smoking ?? guidelines for patients treated with oral anticoagulants per Thrombosis Clinic ?? diabetes and hypertension monitoring during pre-op diet and post-operatively. Diuretic therapy is held to avoid risk of dehydration unless patient is symptomatic. ?? signs and symptoms of infection as well as emergency signs and symptoms were reviewed ?? common post-operative complaints ?? management of sleep apnea during hospitalization and post operatively. The importance of post-operative follow-up with Sleep Center after weight loss was stressed. ?? recommendations for psychiatric medications: should continue uninterrupted after surgery ?? activity post surgery/ return to work recommendations ?? routine [facility]SP post-operative follow-up: 3 weeks. 4 months, 12 months and yearly for LIFE ?? routine Primary Care post-operative follow up: at 10-14 days after surgery to monitor chronic health problems such as diabetes and hypertension, since the requirement for antihypertensive and diabetic medications may decrease or be discontinued Patient advised to contact our office if they develop COVID sx or test positive for COVID. Discussed increased risk of respiratory complications s/p COVID infection. A preliminary copy of the discharge instructions was provided, which is also available in the patient handbook. Melinda was given the opportunity to ask questions, and all questions were answered. Time spent in counselin minutes documented in this encounter Miscellaneous Notes * Op Note - Ronda Mckeon MD - 10/19/2022 9:47 AM EDT [facility] Operative Note Patient Name: Melinda Goncalves : [id number] MR#: [id number] Case Date: 10/19/2022 Surgeon: Surgeon(s) and Role: * Ronda Mckeon MD - Primary * Halima De La Rosa MD - Fellow - Assisting Preoperative diagnosis: Metabolic syndrome Postoperative diagnosis: Metabolic syndrome Procedure(s) (LRB): @LAPAROSCOPIC GASTROPLASTY W/ DAVID-EN-Y CONSTRUCTION (WRVU 29.4) (N/A) EGD, UPPER GI ENDOSCOPY (WRVU 2.09) (N/A) Findings: Retrocolic, retrogastric, david en y gastric bypass. BP limb 40cm, David limb 75cm. Anesthesia: General Estimated Blood Loss: 13cc Specimens removed during surgery: None Drains: None Surgical Closure: Primary Closure - skin incision is completely closed without any wires, vaishali, drains or other devices Disposition: awakened from anesthesia, extubated and taken to the recovery room in a stable condition, having suffered no apparent untoward event. Condition: doing well without problems (Please see the Surgical Encounter Summary for any Implant and Specimen details pertinent to this patient.) HPI/Surgical Indications: Melinda Goncalves is a 62 y.o. old female who has medically complicated morbid obesity. Body mass index is 38.97 kg/m??.. The patient has HEATHER, hyperlipidemia, DM2 and musculoskeletal problems as comorbidities of her obesity and meets the NIH criteria for weight reduction surgery as a medical necessity. The patient is taken to the Operating Room today for bariatric surgery. Weight: Patient Vitals for the past 24 hrs: Weight 10/19/22 0709 99.8 kg (220 lb) Height: Patient Vitals for the past 24 hrs: Height 10/19/22 0709 160 cm (5' 3) Procedure Description: The patient's identity and informed consent were verified in the pre-operative holding area. Subcutaneous lovenox was administered for DVT prophylaxis. Melinda Goncalves was taken to the operating room and placed in Supine position. Bilateral sequential compression devices placed. Anesthesia was induced without complications; see anesthesia record for details. The patient wasprepped and draped in sterile fashion. A larios catheter was placed. Time out was performed and preoperative antibiotics given. A 5mm Fii Fios direct entry port was placed in the periumbilical region under direct vision and theabdomen was insufflated. A 5mm port was then placed in the left lateral abdomen. Adhesions were noted in the right lateral abdomen and taken down with the Harmonic device. The remaining ports (5-mm right subcostal, 12-mm right upper quadrant, and 5-mm left upper quadrant) were all placed under direct vision. A Angelica liver retractor was placed through a 5-mm subxiphoid incision. The periumbilical port was then up-sized to an 11mm port. Attention was first turned to the lower abdomen, where the greater omentum and transverse colon were reflected cephalad. The transverse mesocolon was opened anterior and lateral to the ligament of Treitz using the ultrasonic dissector. A Zia drain was placed in the retrogastric position, under direct vision, through this defect. The proximal jejunum was then measured 40 cm from the ligament of Treitz, at which point it was divided with a 60mm strong load Endo ANDRZEJ stapler. The mesentery was further divided with a 45mm egan load Endo ANDRZEJ stapler. The tip of the BP limb appeared ischemic and soa strong 60 was used to staple off this tip. This was placed in an endocatch bag and removed from the a bdomen. The distal jejunum was then measured 75 cm from the point of transection, and a [id number] jejunojejunostomy was created between this point in the David limb and the end of the biliopancreatic limb with a 60mm strong load Endo ANDRZEJ stapler inserted through enterotomies created with the ultrasonic dissector. The resulting common enterotomy was closed with another firing of the 60mm strong load Endo ANDRZEJ stapler. The mesenteric defect was closed with a running 2-0 Surgidac suture. The [place] drain was attached to the cut end of the David limb with a simple 2-0 Surgidac suture. The drain and the David limb were placed into the mesocolic defect under direct vision. Attention was then turned to the left upper quadrant where the Angelica retractor was used to retract the left lobe of the liver and attached to the Christian arm for stability. The gastrohepatic ligament was then divided with the ultrasonic dissector. After gaining entry to the lesser sac, all tubeswere removed from the stomach, and the vessels of the lesser curvature of the stomach were divided with a 45mm egan load Endo ANDRZEJ stapler. Successive firings of the 60mm purple load Endo ANDRZEJ stapler were then used to create a 30 mL gastric pouch from the lesser curvature of the stomach to the angleof His. The angle of His was dissected posteriorly through the lesser sac, prior to applying the final staple load, to ensure complete division of the stomach. The posterior aspect of the gastric pouch was then dissected free from its surrounding tissue in preparation for anastomosis. The [place] drain was identified in the lesser sac and used to deliver the David limb. After appropriately orienting the David limb, the posterior outer layer of the gastrojejunostomy was fashioned with a running 2-0 Polysorb suture. A gastrotomy and a jejunotomy were then created with the ultrasonic dissector, and a 45mm purple load Endo ANDRZEJ stapler was inserted to 2.5 cm and fired to create the inner layer of the anastomosis. A fiberoptic endoscope was then passed orally and guided across the anastomosis. The gastroenterotomy was then closed with running 2-0 Polysorb suture over the stenting endoscope. Theanterior outer layer of the gastrojejunostomy was fashioned with a running 2-0 Polysorb suture. A bowel clamp was then placed on the David limb, and the anastomosis was endoscopically insufflated under external saline submersion. This did not reveal any evidence of a leak. The endoscopic examinationof the anastomosis revealed it to be patent and intact. The bowel was deflated and the endoscope was removed. The bowel clamp was removed. Attention was then once again turned to the lower abdomen where the David limb was pulled to the appropriate length and orientation through the mesocolic defect. The mesocolic defect and the Freeman defect were then closed with a running 2-0 Surgidac suture, which was locked as it crossed the bowelto prevent cinching. The fascia of the 12mm port site was closed with #0 Vicryl on a suture passer device. The Nathansonretractor was removed under direct vision. Local anesthetic was injected into the port sites for postoperative analgesia. The skin of all incisions was closed with 4-0 Monocryl subcuticular sutures and dressed with mastisol, steristrips and bandaids. The patient tolerated the procedure well. All sponge, instrument and needle counts were reported to me as correct. The patient was awoken from anesthesia without complication and transported to the recovery area in stable condition. Surgical Infection Prevention Bundle Used? N/A Attestation: Case Date: 10/19/2022 I was present and I participated during the entire procedure (does not need to include opening and closing). Ronda Mckeon MD 10/19/2022 documented in this encounter Plan of Treatment Upcoming Encounters Date Type Department Care Team (Late st Contact Info) Description 02/01/2025 2:15 PM EDT Office Visit Dermatology at [facility] [address] [place] [address] Regina Rivas MD [facility] [place] [address] documented as of this encounter Goals Goal [...] to work with sleep at [facility] Goal 7 hours of sleep nightly. [...] Procedure Name Priority Date/Time Associated Diagnosis Comments POCT GLUCOSE Routine 10/21/2022 7:32 AM EDT POCT GLUCOSE Routine 10/21/2022 12:33 AM EDT POCT GLUCOSE Routine 10/20/2022 8:26 PM EDT POCT GLUCOSE Routine 10/20/2022 6:17 PM EDT HEMOGRAM Routine 10/20/2022 2:12 PM EDT DIFFERENTIAL, AUTOMATED Routine 10/20/2022 2:12 PM EDT HC CBC,PLT & AUTO DIFF Routine 10/20/2022 2:12 PM EDT POCT GLUCOSE Routine 10/20/2022 12:39 PM EDT HEMOGRAM Timed 10/20/2022 8:52 AM EDT DIFFERENTIAL, AUTOMATED Timed 10/20/2022 8:52 AM EDT HC VENIPUNCTURE Timed 10/20/2022 8:52 AM EDT HEMOGRAM Routine 10/20/2022 4:12 AM EDT DIFFERENTIAL, AUTOMATED Routine 10/20/2022 4:12 AM EDT HC VENIPUNCTURE Routine 10/20/2022 4:12 AM EDT HC PHOSPHORUS, SERUM Routine 10/20/2022 4:12 AM EDT HC MAGNESIUM, SERUM Routine 10/20/2022 4 :12 AM EDT BASIC METABOLIC PANEL (NON-FASTING) Routine 10/20/2022 4:12 AM EDT POCT GLUCOSE Routine 10/19/2022 5:29 PM EDT POCT GLUCOSE Routine 10/19/2022 1:46 PM EDT POCT GLUCOSE Routine 10/19/2022 1:24 PM EDT Upper GI Endoscopy, Diagnostic ([id number]) 10/19/2022 9:12 AM EDT Morbid Obesity Lap Gastric Bypass/David-En-Y ([id number]) 10/19/2022 9:12 AM EDT Morbid Obesity POCT GLUCOSE Routine 10/19/2022 7:15 AM EDT UPPER GI ENDOSCOPY Routine 10/19/2022 6: 56 AM EDT LAPAROSCOPIC GASTROPLASTY, G\SURG Routine 10/19/2022 6:56 AM EDT documented in this encounter Results * POCT Glucose (10/21/2022 7:32 AM EDT) POC Glucose 95 65 - 199 mg/dL [facility] Comment: Supplemental ranges: <140 mg/dL before meals <180 mg/dL all other times of the day Blood 10/21/2022 7:32 AM EDT 10/21/2022 7:32 AM EDT Ronda Mckeon MD POINT OF CARE TEST O AUDELIA [facility] [place] [address] * POCT Glucose (10/21/2022 12:33 AM EDT) POC Glucose 112 65 - 199 mg/dL [facility] Comment: Supplemental ranges: <140 mg/dL before meals <180 mg/dL all other times of the day Blood 10/21/2022 12:3 3 AM EDT 10/21/2022 12:33 AM EDT Ronda Mckeon MD POINT OF CARE TEST O AUDELIA Performing Organization Address City/[facility]/ZIP Co de Phone Number [facility] [place] [address] * POCT Glucose (10/20/2022 8:26 PM EDT) POC Glucose 130 65 - 199 mg/dL [facility] Comment: Supplemental ranges: <140 mg/dL before meals <180 mg/dL all other times of the day Blood 10/20/2022 8:26 PM EDT 10/20/2022 8:26 PM EDT Ronda Mckeon MD POINT OF CARE TEST O RDERAKENDRA [facility] [place] [address] * POCT Glucose (10/20/2022 6:17 PM EDT) [facility] POC Glucose 120 65 - 199 mg/dL [facility] Comment: Supplemental ranges: <140 mg/dL before meals <180 mg/dL all other times of the day Blood 10/20/2022 6:17 PM EDT 10/20/2022 6:17 PM EDT Ronda Mckeon MD POINT OF CARE TEST O AUDELIA [facility] [place] [address] * Differential, Automated (10/20/2022 2:12 PM EDT) [facility] Neutrophils % 68.5 % [facility] Neutr Abs (ANC) 5.89 1.70 - 6.10 x10(3)/[facility] Lymphocytes % 24.0 % [facility] Lymphocytes Abs 2.1 0.9 - 3.2 x10(3)/[facility] Monocytes % 5.6 % [facility] Monocyte Abs 0.5 0.3 - 0.9 x10(3)/[facility] Eosinophils % 1.4 % [facility] Eosinophils Abs 0.1 0.0 - 0.4 x10(3)/[facility] Basophils % 0.3 % [facility] Basophils Abs 0.0 0.0 - 0.1 x10(3)/[facility] Immature Gran % 0.20 % [facility] Comment: Immature granulocytes(IG's)percentage and absolute count will include metamyelocytes, myelocytes, and promyelocytes. Blood smears from CBCs yielding IG's will be scanned manually for concordance. If this scan disagrees with the automated IG or if promyelocytes are noted, a manual differential will be performed. Micki Gran Abs 0.02 0.00 - 0.04 x10(3)/[facility] Blood 10/20/2022 2:12 PM EDT 10/20/2022 2:17 PM EDT Narrative Resulting Agency Comment Spec In Lab Halima De La Rosa MD HEMATOLOGY ORDERABLE S [facility] [place] [address] * (ABNORMAL) Hemogram (10/20/2022 2:12 PM EDT) WBC 8.6 4.0 - 9.5 x10(3)/[facility] RBC 3.84(L) 4.00 - 5.21 x10(6)/[facility] Hemoglobin 11.0(L) 11.7 - 15.5 g/dL [facility] Hematocrit 34.2(L) 35.7 - 45.8 % [facility] MCV 89.1 82.6 - 94.4 [facility] MCH 28.6 27.1 - 32.0 pg [facility] MCHC 32.2 31.7 - 35.0 g/dL [facility] Platelets 243 145 - 357 x10(3)/[facility] RDWSD 44.7 37.0 - 46.0 [facility] RDWCV 13.7 11.5 - 14.1 % [facility] MPV 10.9 7.6 - 12.9 [facility] nRBC % Auto 0.0 % [facility] nRBC Abs Auto 0.000 0.000 - 0.000 x10(3)/[facility] Blood 10/20/2022 2:12 PM EDT 10/20/2022 2:17 PM EDT Narrative Resulting Agency Comment Spec In Lab Halima De La Rosa MD HEMATOLOGY ORDERABLE S [facility] [place] [address] * POCT Glucose (10/20/2022 12:39 PM EDT) Pathologist [facility] POC Glucose 101 65 - 199 mg/dL [facility] Comment: Supplemental ranges: <140 mg/dL before meals <180 mg/dL all other times of the day Blood 10/20/2022 12:3 9 PM EDT 10/20/2022 12:39 PM EDT Ronda Mckeon MD POINT OF CARE TEST O RDERABLES [facility] [place] [address] * Differential, Automated (10/20/2022 8:52 AM EDT) [facility] Neutrophils % 69.0 % [facility] Neutr Abs (ANC) 5.76 1.70 - 6.10 x10(3)/[facility] Lymphocytes % 23.4 % [facility] Lymphocytes Abs 2.0 0.9 - 3.2 x10(3)/[facility] Monocytes % 6.3 % [facility] Monocyte Abs 0.5 0.3 - 0.9 x10(3)/[facility] Eosinophils % 0.7 % [facility] Eosinophils Abs 0.1 0.0 - 0.4 x10(3)/[facility] Basophils % 0.4 % [facility] Basophils Abs 0.0 0.0 - 0.1 x10(3)/[facility] Immature Gran % 0.20 % [facility] Comment: Immature granulocytes(IG's)percentage and absolute count will include metamyelocytes, myelocytes, and promyelocytes. Blood smears from CBCs yielding IG's will be scanned manually for concordance. If this scan disagrees with the automated IG or if promyelocytes are noted, a manual differential will be performed. Micki Gran Abs 0.02 0.00 - 0.04 x10(3)/[facility] Blood 10/20/2022 8:52 AM EDT 10/20/2022 9:24 AM EDT Narrative Resulting Agency Comment Spec In Lab Halima De La Rosa MD HEMATOLOGY ORDERABLE S [facility] [place] [address] * (ABNORMAL) Hemogram (10/20/2022 8:52 AM EDT) WBC 8.4 4.0 - 9.5 x10(3)/[facility] RBC 3.71(L) 4.00 - 5.21 x10(6)/[facility] Hemoglobin 10.7(L) 11.7 - 15.5 g/dL [facility] Hematocrit 32.5(L) 35.7 - 45.8 % [facility] MCV 87.6 82.6 - 94.4 fL [facility] MCH 28.8 27.1 - 32.0 pg [facility] MCHC 32.9 31.7 - 35.0 g/dL [facility] Platelets 221 145 - 357 x10(3)/[facility] RDWSD 44.0 37.0 - 46.0 [facility] RDWCV 13.7 11.5 - 14.1 % [facility] MPV 11.1 7.6 - 12.9 [facility] nRBC % Auto 0.0 % [facility] nRBC Abs Auto 0.000 0.000 - 0.000 x10(3)/[facility] Blood 10/20/2022 8:52 AM EDT 10/20/2022 9:24 AM EDT Narrative Resulting Agency Comment Spec In Lab Halima De La Rosa MD HEMATOLOGY ORDERABLE S [facility] [place] [address] * (ABNORMAL) Differential, Automated (10/20/2022 4:12 AM EDT) Neutrophils % 75.6 % [facility] Neutr Abs (ANC) 6.83(H) 1.70 - 6.10 x10(3)/mc L [facility] Lymphocytes % 18.1 % [facility] Lymphocytes Abs 1.6 0.9 - 3.2 x10(3)/ L [facility] Monocytes % 5.8 % [facility] Monocyte Abs 0.5 0.3 - 0.9 x10(3)/ L [facility] Eosinophils % 0.1 % [facility] Eosinophils Abs 0.0 0.0 - 0.4 x10(3)/[facility] Basophils % 0.2 % [facility] Basophils Abs 0.0 0.0 - 0.1 x10(3)/[facility] Immature Gran % 0.20 % [facility] Comment: Immature granulocytes(IG's)percentage and absolute count will include metamyelocytes, myelocytes, and promyelocytes. Blood smears from CBCs yielding IG's will be scanned manually for concordance. If this scan disagrees with the automated IG or if promyelocytes are noted, a manual differential will be performed. Micki Gran Abs 0.02 0.00 - 0.04 x10(3)/ L [facility] Blood 10/20/2022 4:12 AM EDT 10/20/2022 4:36 AM EDT Narrative Resulting Agency Comment Spec In Lab Halima De La Rosa MD HEMATOLOGY ORDERABLE S Performing Organization Address City/[facility]/ZIP Co de Phone Number [facility] [place] [address] * (ABNORMAL) Hemogram (10/20/2022 4:12 AM EDT) WBC 9.0 4.0 - 9.5 x10(3)/[facility] RBC 3.66(L) 4.00 - 5.21 x10(6)/[facility] Hemoglobin 10.7(L) 11.7 - 15.5 g/dL [facility] Hematocrit 32.1(L) 35.7 - 45.8 % [facility] MCV 87.7 82.6 - 94.4 fL [facility] MCH 29.2 27.1 - 32.0 pg [facility] MCHC 33.3 31.7 - 35.0 g/dL [facility] Platelets 236 145 - 357 x10(3)/[facility] RDWSD 43.8 37.0 - 46.0 [facility] RDWCV 13.5 11.5 - 14.1 % [facility] MPV 11.2 7.6 - 12.9 [facility] nRBC % Auto 0.0 % [facility] nRBC Abs Auto 0.000 0.000 - 0.000 x10(3)/[facility] Blood 10/20/2022 4:12 AM EDT 10/20/2022 4:36 AM EDT Narrative Resulting Agency Comment Spec In Lab Halima De La Rosa MD HEMATOLOGY ORDERABLE S [facility] [address] [place] [address] * Phosphorus (10/20/2022 4:12 AM EDT) Phosphorus 3.8 2.5 - 4.5 mg/dL [facility] Blood 10/20/2022 4:12 AM EDT 10/20/2022 4:36 AM EDT Narrative Resulting Agency Comment Spec In Lab Halima De La Rosa MD CHEMISTRY ORDERABLES [facility] [place] [address] * Magnesium (10/20/2022 4:12 AM EDT) Magnesium 0.74 0.69 - 1.07 mmol/L [facility] Blood 10/20/2022 4:12 AM EDT 10/20/2022 4:36 AM EDT Narrative Resulting Agency Comment Spec In Lab Halima De La Rosa MD CHEMISTRY ORDERABLES Performing Organization Address [facility] Co de Phone Number [facility] [place] [address] * (ABNORMAL) Basic Metabolic Panel (non-fasting) (10/20/2022 4:12 AM EDT) Glucose Lvl 136 65 - 199 mg/dL [facility] Comment:Diabetes: >=200 mg/d L plus symptoms BUN 14 8 - 18 mg/dL [facility] Creatinine 0.82 0.70 - 1.20 mg/dL [facility] Sodium 137 135 - 145 mmol/L [facility] Potassium 4.0 3.5 - 5.0 mmol/L [facility] Comment: Please note: ??Patients with WBC >100,000 may have falsely elevated Potassium levels. ??For accurate Potassium quantification in these patients send serum separator tube (gold top) for subsequent determinations. ??Contact the Clinical Chemistry Laboratory if there are any questions. Chloride 105 98 - 107 mmol/L [facility] CO2 24 22 - 31 mmol/L [facility] Anion Gap 8 5 - 15 mmol/L [facility] Calcium 8.4(L) 8.5 - 10.5 mg/dL [facility] Estimated GFR 81 >=60 mL/min/1. 73 m?? [facility] [...] and symptoms in addition to eGFR. Blood 10/20/2022 4:12 AM EDT 10/20/2022 4:36 AM EDT Narrative Resulting Agency Comment Spec In Lab Halima De La Rosa MD CHEMISTRY ORDERABLES Performing Organization Address [facility] Co de Phone Number [facility] [place] [address] * POCT Glucose (10/19/2022 5:29 PM EDT) POC Glucose 140 65 - 199 mg/dL [facility] Comment: Supplemental ranges: <140 mg/dL before meals <180 mg/dL all other times of the day Blood 10/19/2022 5:29 PM EDT 10/19/2022 5:29 PM EDT Ronda Mckeon MD POINT OF CARE TEST O RDERABLES Performing Organization Address [facility] Co de Phone Number [facility] [place] [address] * POCT Glucose (10/19/2022 1:46 PM EDT) POC Glucose 147 65 - 199 mg/dL [facility] Comment: Supplemental ranges: <140 mg/dL before meals <180 mg/dL all other times of the day Blood 10/19/2022 1:46 PM EDT 10/19/2022 1:46 PM EDT Ronda Mckeon MD POINT OF CARE TEST O RDBRITTNEE Performing Organization Address City/[facility]/ZIP Co de Phone Number [facility] [place] [address] * POCT Glucose (10/19/2022 1:24 PM EDT) POC Glucose 154 65 - 199 mg/dL [facility] Comment: Supplemental ranges: <140 mg/dL before meals <180 mg/dL all other times of the day Blood 10/19/2022 1:24 PM EDT 10/19/2022 1:24 PM EDT Ronda Mckeon MD POINT OF CARE TEST O AUDELIA Performing Organization Address [facility] Co de Phone Number [facility] [place] [address] * POCT Glucose (10/19/2022 7:15 AM EDT) POC Glucose 87 65 - 199 mg/dL [facility] Comment: Supplemental ranges: <140 mg/dL before meals <180 mg/dL all other times of the day Blood 10/19/2022 7:15 AM EDT 10/19/2022 7:15 AM EDT Ronda Mckeon MD POINT OF CARE TEST O AUDELIA Performing Organization Address City/[facility] Co de Phone Number [facility] [place] [address] documented in this encounter Visit Diagnoses Diagnosis Metabolic syndrome- Primary Dysmetabolic Syndrome X documented in this encounter Admitting Diagnoses Diagnosis Metabolic syndrome Dysmetabolic Syndrome X documented in this encounter Administered Medications Inactive Administered Medications - up to 3 most recent administrations Medication Order MAR Action Action Date Dose Rate Site acetaminophen (Tylenol) (32.02 mg/mL) oral liquid 1,000 mg 1,000 mg, Oral, EVERY 6 HOURS SCHEDULED, First dose (after last modification) on Sat10/19/22 at 1515, Until Discontinued, Administer starting post-op day one, once tolerating PO Maximum dose of acetaminophen is 3,000 mg from all sources in 24 hours. When ordered for pain, acetaminophen should be given even when other ordered pain medications are indicated., Routine Given 10/20/2022 5:59 AM EDT 1,000 mg Given 10/19/2022 11:42 PM EDT 1,000 mg Given 10/19/2022 2:59 PM EDT 1,000 mg acetaminophen (Tylenol) tablet 1,000 mg 1,000 mg, Oral, ONCE, 1 dose, On Sat10/19/22 at 0745, Maximum dose of acetaminophen is 4,000 mg from all sources in 24 hours. When ordered for pain, acetaminophen should be given even when other ordered pain medications are indicated. , Day of Surgery (Day of Procedure), Routine Given 10/19/2022 7:31 AM EDT 1,000 mg acetaminophen (Tylenol) tablet 1,000 mg 1,000 mg, Oral, EVERY 6 HOURS SCHEDULED, First dose on 10/20/22 at 1200, Until Discontinued, Please split tablet in half or crush before administering Maximum dose of acetaminophen is 4,000 mg from all sources in 24 hours. When ordered for pain, acetaminophen should be given even when other ordered pain medications are indicated., Routine Given 10/21/2022 6:24 AM EDT 1,000 mg Given 10/20/2022 5:19 PM EDT 1,000 mg Given 10/20/2022 12:46 PM EDT 1,000 mg celecoxib (CeleBREX) capsule 200 mg 200 mg, Oral, 2 TIMES DAILY, First dose (after last modification) on 10/20/22 at 1330, Until Discontinued, Administer starting post-op day one. Open capsule and administer all at once. Ok to sprinkle contents of capsule on applesauce-give immediately., Routine Given 10/21/2022 8:18 AM EDT 200 mg Given 10/20/2022 8:39 PM EDT 200 mg Given 10/20/2022 2:35 PM EDT 200 mg dextrose 10% infusion 250 mL, at 1,000 mL/hr, Intravenous, EVERY 30 MIN PRN, Starting on Sat10/19/22 at 1400, Until 10/21/22 at 1628, For BG 50-70 mg/dL: Oral treatment preferred: If able to drink, give 120 mL Juice or Regular (not diet) soda OR If NPO, give 15 gram glucose 40% oral gel massaged into buccal mucosa OR if unconscious or uncooperative, give 25 gram (250 mL) Dextrose 10% IV over 15 minutes per protocol OR, if no IV access, 1 mg Glucagon IM. For BG less than 50 mg/dL: Oral treatment preferred: If able to drink, give 240 mL Juice or Regular (not diet) soda OR If NPO, give 30 gram glucose 40% oral gel massaged in buccal mucosa OR if unconscious or uncooperative, give 25 gram (250 mL) Dextrose 10% IV over 15 minutes per protocol OR, if no IV access, 1 mg Glucagon IM. Recheck BG in 30 minutes. May repeat juice/soda, gel, dextrose or glucagon once per episode. For persistent hypoglycemia, consider longer-acting treatment for the duration of the active insulin. docusate sodium (Colace) capsule 100 mg 100 mg, Oral, 2 TIMES DAILY, First dose on 10/20/22 at 2100, Until Discontinued, Open capsule and sprinkle over liquid, Routine Given 10/21/2022 8:18 AM EDT 10 0 mg Given 10/20/2022 8:40 PM EDT 100 mg enoxaparin (Lovenox) (40 mg/0.4 mL) subcutaneous injection 40 mg 40 mg, Subcutaneous, ONCE, 1 dose, On Sat10/19/22 at 0745, To be given in preop area, Day of Surgery (Day of Procedure), Routine Given 10/19/2022 7:45 AM EDT 40 mg Left Lower Quadrant enoxaparin (Lovenox) (40 mg/0.4 mL) subcutaneous injection 40 mg 40 mg, Subcutaneous, EVERY 12 HOURS SCHEDULED (2 times per day), First dose on 10/20/22 at 1030, Until Discontinued, Routine Given 10/21/2022 8:18 AM EDT 40 mg Given 10/20/2022 8:40 PM EDT 40 mg Given 10/20/2022 10:06 AM EDT 40 mg glucagon (Glucagen) (1 mg/mL) injection solution 1 mg 1 mg, Intramuscular, EVERY 30 MIN PRN, Starting on Sat10/19/22 at 1400, Until Sat10/21/22 at 1628, Low blood sugar, For BG 50-70 mg/dL: Oral treatment preferred: If able to drink, give 120 mL Juice or Regular (not diet) soda OR If NPO, give 15 gram glucose 40% oral gel massaged into buccal mucosa OR if unconscious or uncooperative, give 25 gram (250 mL) Dextrose 10% IV over 15 minutes per protocol OR, if no IV access, 1 mg Glucagon IM. For BG less than 50 mg/dL: Oral treatment preferred: If able to drink, give 240 mL Juice or Regular (not diet) soda OR If NPO, give 30 gram glucose 40% oral gel massaged in buccal mucosa OR if unconscious or uncooperative, give 25 gram (250 mL) Dextrose 10% IV over 15 minutes per protocol OR, if no IV access, 1 mg Glucagon IM. Recheck BG in 30 minutes. May repeat juice/soda, gel, dextrose or glucagon once per episode. For persistent hypoglycemia, consider longer-acting treatment for the duration of the active insulin., Routine glucose (Glutose) 40% oral geL 15-30 g of glucose, Buccal, EVERY 30 MIN PRN, Starting on Sat10/19/22 at 1400, Until Sat10/21/22 at 1628, Low blood sugar, For BG 50-70 mg/dL: Oral treatment preferred: If able to drink, give 120 mL Juice or Regular (not diet) soda OR If NPO, give 15 gram glucose 40% oral gel massaged into buccal mucosa OR if unconscious or uncooperative, give 25 gram (250 mL) Dextrose 10% IV over 15 minutes per protocol OR, if no IV access, 1 mg Glucagon IM. For BG less than 50 mg/dL: Oral treatment preferred: If able to drink, give 240 mL Juice or Regular (not diet) soda OR If NPO, give 30 gram glucose 40% oral gel massaged in buccal mucosa OR if unconscious or uncooperative, give 25 gram (250 mL) Dextrose 10% IV over 15 minutes per protocol OR, if no IV access, 1 mg Glucagon IM. Recheck BG in 30 minutes. May repeat juice/soda, gel, dextrose or glucagon once per episode. For persistent hypoglycemia, consider longer-acting treatment for the duration of the active insulin. 1 tube of Glutose-15 contains 15 grams of glucose (net weight of tube = 37.5 grams.), Routine HYDROmorphone (Dilaudid) (2 mg/mL) multi-dose injection solution 0.2 mg 0.2 mg, Intravenous, EVERY 10 MIN PRN, Starting on Sat10/19/22 at 1326, Until Sat10/19/22 at 1739, Pain, For Mild to Moderate Pain (1-5 out of 10), Hold for respiratory rate less than 10 per minute. Maximum dose 3 mg over one hour including administrations in the OR. If multiple pain medications are ordered, start with HYDROmorphone or morphine and use fentaNYL for breakthrough pain., PACU Recovery, Routine Given 10/19/2022 2:45 PM EDT 0.2 mg insulin lispro (HumaLOG;Admelog) (100 unit/mL) subcutaneous injection vial 1-6 Units 1-6 Units, Subcutaneous, EVERY 6 HOURS PRN, Starting on Sat10/19/22 at 1400, Until Sat10/21/22 at 1628, see correction below, CORRECTION BOLUS [1-6 Units] Moderate Sliding Scale (BG in mg/dL): Correction factor 20 (1 unit of insulin is expected to drop the glucose 20 mg/dL) BG 140 - 160 Give 1 unit BG 161 - 180 Give 2 units BG 181 - 200 Give 3 units BG 201 - 220 Give 4 units BG 221 - 240 Give 5 units BG greater than 240, give 6 units and recheck BG in 2 hours. - If recheck BG is LESS than 240, give no insulin and resume schedule. - If recheck BG is GREATER than 240, give 6 units and repeat BG in 2 hours (no more than 3 times) & call for new insulin orders. DO NOT hold if NPO, unless specifically directed to do so by written order. Per Blood Glucose Monitoring Policy, re-check a BG of > 240 mg/dL in 2 hours., Routine Given 10/19/2022 5:32 PM EDT 1 Units ketorolac (Toradol) (30 mg/mL) injection 30 mg 30 mg, Intravenous, ONCE, 1 dose, On Sat10/19/22 at 1415, PACU Recovery, Routine Given 10/19/2022 1:56 PM EDT 30 mg lactated ringers infusion 1,000 mL, at 100 mL/hr, Intravenous, CONTINUOUS, Starting on Sat10/19/22 at 0745, Until 10/19/22 at 1739, Day of Surgery (Day of Procedure) New Bag 10/19/2022 8:31 AM EDT 1,000 mLs 100 mL/hr lactated ringers infusion 1,000 mL, at 125 mL/hr, Intravenous, CONTINUOUS, Starting on 10/19/22 at 1430, Until 10/20/22 at 1254 New Bag 10/20/2022 12:47 PM EDT 1,000 mLs 125 mL/hr New Bag 10/20/2022 5:59 AM EDT 1,000 mLs 125 mL/hr New Bag 10/19/2022 9:30 PM EDT 1,000 mLs 125 mL/hr lactated ringers infusion 75 mL/hr, Intravenous, CONTINUOUS, Starting on 10/20/22 at 1345, Until 10/21/22 at 1628 New Bag 10/21/2022 1:41 AM EDT 75 mL/hr 75 mL /hr Rate/Dose Change 10/20/2022 1:45 PM EDT 75 mL/hr 75 mL/h r levothyroxine (Synthroid) tablet 50 mcg 50 mcg, Oral, EVERY MORNING, First dose on 10/20/22 at 0730, Until Discontinued, Routine Given 10/21/2022 6:24 AM EDT 50 mcg Given 10/20/2022 6:58 AM EDT 50 mcg metFORMIN (Glucophage) tablet 1,000 mg 1,000 mg, Oral, 2 TIMES DAILY, First dose on 10/20/22 at 0900, Until Discontinued, Okay to crush and give with liquids, Routine Given 10/21/2022 8:18 AM EDT 1,000 mg Given 10/20/2022 8:40 PM EDT 1,000 mg Given 10/20/2022 10:06 AM EDT 1,000 mg ondansetron (pf) (Zofran) (2 mg/mL) injection 4 mg 4 mg, Intravenous, EVERY 8 HOURS SCHEDULED, First dose on 10/20/22 at 0745, Until Discontinued, For nausea please use ondansetron as the first choice; prochlorperazine as a second choice; promethazine as a third choice. Call provider if not effective. Given 10/21/2022 6:24 AM EDT 4 mg Given 10/20/2022 8:40 PM EDT 4 mg Given 10/20/2022 1:08 PM EDT 4 mg oxyCODONE (Roxicodone) (1 mg/mL) oral liquid 5 mg 5 mg, Oral, EVERY 4 HOURS PRN, Starting on Sat10/19/22 at 1400, Until 10/20/22 at 0842, Pain, Moderate-Severe pain 4-10, Routine Given 10/20/2022 7:40 AM EDT 5 m g Given 10/19/2022 9:30 PM EDT 5 mg oxyCODONE (Roxicodone) tablet 5 mg 5 mg, Oral, EVERY 4 HOURS PRN, Starting on 10/20/22 at 0840, Until 10/21/22 at 1628, Pain, Okay to split tablet or crush, Routine pantoprazole (Protonix) injection 40 mg 40 mg, Intravenous, DAILY, First dose on Sat10/19/22 at 1430, Until Discontinued, Reconstitute with 10 mL of normal saline to a concentration of 4 mg/mL and inject slowly over 2 minutes. Reconstitute with 10 mL of normal saline to a concentration of 4 mg/mL and inject slowly over 2 minutes., Routine Given 10/21/2022 8:18 AM EDT 4 0 mg Given 10/20/2022 9:20 AM EDT 40 mg Given 10/19/2022 2:18 PM EDT 40 mg polyethylene glycoL (Miralax) packet 17 g 17 g, Oral, DAILY, First dose on 10/20/22 at 1845, Until Discontinued, Routine Given 10/21/2022 8:18 AM EDT 17 g Given 10/20/2022 6:42 PM EDT 17 g prochlorperazine (Compazine) (5 mg/mL) injection 10 mg 10 mg, Intravenous, EVERY 6 HOURS PRN, Starting on Sat10/19/22 at 1400, Until 10/21/22 at 1628, Nausea, Vomiting, For nausea please use ondansetron as the first choice; prochlorperazine as a second choice; promethazine as a third choice. Call provider if not effective., Routine Given 10/19/2022 2:51 PM EDT 5 mg sodium chloride 0.9 % (flush) (BD PosiFlush Normal Saline 0.9) flush 5 mL 5 mL, Intravenous, 2 TIMES DAILY, First dose on 10/20/22 at 0900, Until Discontinued, Recovery (Recovery-Hospital Unit), Routine Given 10/21/2022 8:20 AM EDT 5 mLs Given 10/20/2022 8:41 PM EDT 5 mLs documented in this encounter Active and Recently Administered Medications Times are shown in EDT. Scheduled Medication Order 10/19/2022 10/20/2022 10/21/2022 acetaminophen (Tylenol) (32.02 mg/mL) oral liquid 1,000 mg (CANCELED) 1,000 mg, Oral, EVERY 6 HOURS SCHEDULED, First dose (after last modification) on Sat10/19/22 at 1515, Until Discontinued, Administer starting post-op day one, once tolerating PO Maximum dose of acetaminophen is 3,000 mg from all sources in 24 hours. When ordered for pain, acetaminophen should be given even when other ordered pain medications are indicated., Routine 1459 (Given - Provider: Wanda Guzman RN)2342 (Given - Provider: Geetha Navas RN) 0559 (Given - Provider: Geetha Navas RN) acetaminophen (Tylenol) tablet 1,000 mg (COMPLETED) 1,000 mg, Oral, ONCE, 1 dose, On Sat10/19/22 at 0745, Maximum dose of acetaminophen is 4,000 mg from all sources in 24 hours. When ordered for pain, acetaminophen should be given even when other ordered pain medications are indicated. , Day of Surgery (Day of Procedure), Routine 0731 (Given - Provider: Renetta Mandujano RN) acetaminophen (Tylenol) tablet 1,000 mg 1,000 mg, Oral, EVERY 6 HOURS SCHEDULED, First dose on 10/20/22 at 1200, Until Discontinued, Please split tablet in half or crush before administering Maximum dose of acetaminophen is 4,000 mg from all sources in 24 hours. When ordered for pain, acetaminophen should be given even when other ordered pain medications are indicated., Routine 1246 (Given - Provider: Rozina Ahuja RN)1719 (Given - Provider: Rozina Ahuja RN) 0000 (Not Given - Provider: Geetha Navas RN - Reason: See comment - Comment: Pt requested not to be woke up at midnight for Tylenol if sleeping.)0624 (Given - Provider: Geetha Navas RN)1200 (Not Given - Provider: Nakul Rodríguez RN - Reason: Patient/family refused) celecoxib (CeleBREX) capsule 200 mg 200 mg, Oral, 2 TIMES DAILY, First dose (after last modification) on 10/20/22 at 1330, Until Discontinued, Administer starting post-op day one. Open capsule and administer all at once. Ok to sprinkle contents of capsule on applesauce-give immediately., Routine 1435 (Given - Provider: Rozina Ahuja, MEGAN)2038 (Given - Provider: Geetha Navas RN) 08 (Given - Provider: Nakul Rodríguez, MEGAN) docusate sodium (Colace) capsule 100 mg 100 mg, Oral, 2 TIMES DAILY, First dose on 10/20/22 at 2100, Until Discontinued, Open capsule and sprinkle over liquid, Routine 2039 (Given - Provider: Geetha Navas RN) 08 (Given - Provider: Nakul Rodríguez, MEGAN) enoxaparin (Lovenox) (40 mg/0.4 mL) subcutaneous injection 40 mg (COMPLETED) 40 mg, Subcutaneous, ONCE, 1 dose, On Sat10/19/22 at 0745, To be given in preop area, Day of Surgery (Day of Procedure), Routine 0745 (Given - Provider: Renetta Mandujano RN) enoxaparin (Lovenox) (40 mg/0.4 mL) subcutaneous injection 40 mg 40 mg, Subcutaneous, EVERY 12 HOURS SCHEDULED (2 times per day), First dose on 10/20/22 at 1030, Until Discontinued, Routine 1006 (Given - Provider: Rozina Ahuja, MEGAN)2039 (Given - Provider: Geetha Navas RN) 08 (Given - Provider: Nakul Rodríguez, MEGAN) ketorolac (Toradol) (30 mg/mL) injection 30 mg (COMPLETED) 30 mg, Intravenous, ONCE, 1 dose, On Sat10/19/22 at 1415, PACU Recovery, Routine 1356 (Given - Provider: Wanda Guzman RN) levothyroxine (Synthroid) tablet 50 mcg 50 mcg, Oral, EVERY MORNING, First dose on 10/20/22 at 0730, Until Discontinued, Routine 0658 (Given - Provider: Geetha Navas RN) 0624 (Given - Provider: Geetha Navas RN) metFORMIN (Glucophage) tablet 1,000 mg 1,000 mg, Oral, 2 TIMES DAILY, First dose on 10/20/22 at 0900, Until Discontinued, Okay to crush and give with liquids, Routine 1006 (Given - Provider: Rozina Ahuja RN)2039 (Given - Provider: Geetha Navas RN) 0818 (Given - Provider: Nakul Rodríguez, RN) ondansetron (pf) (Zofran) (2 mg/mL) injection 4 mg 4 mg, Intravenous, EVERY 8 HOURS SCHEDULED, First dose on 10/20/22 at 0745, Until Discontinued, For nausea please use ondansetron as the first choice; prochlorperazine as a second choice; promethazine as a third choice. Call provider if not effective. 0658 (Given - Provider: Geetha Navas RN)1308 (Given - Provider: Rozina Ahuja, MEGAN)2039 (Given - Provider: Geetha Navas RN)2200 (Not Given - Provider: Geetha Navas RN - Reason: See comment - Comment: Given at 2039) 0624 (Given - Provider: Geetha Navas RN) pantoprazole (Protonix) injection 40 mg 40 mg, Intravenous, DAILY, First dose on Sat10/19/22 at 1430, Until Discontinued, Reconstitute with 10 mL of normal saline to a concentration of 4 mg/mL and inject slowly over 2 minutes. Reconstitute with 10 mL of normal saline to a concentration of 4 mg/mL and inject slowly over 2 minutes., Routine 1418 (Given - Provider: Wanda Guzman RN) 0920 (Given - Provider: Rozina Ahuja, MEGAN) 0818 (Given - Provider: Nakul Rodríguez, MEGAN) polyethylene glycoL (Miralax) packet 17 g 17 g, Oral, DAILY, First dose on 10/20/22 at 1845, Until Discontinued, Routine 1842 (Given - Provider: Rozina Ahuja, MEGAN) 0818 (Given - Provider: Nakul Rodríguez, RN) sodium chloride 0.9 % (flush) (BD PosiFlush Normal Saline 0.9) flush 5 mL 5 mL, Intravenous, 2 TIMES DAILY, First dose on 10/20/22 at 0900, Until Discontinued, Recovery (Recovery-Hospital Unit), Routine 0900 (Not Given - Provider: Rozina Ahuja RN - Reason: See comment - Comment: iv infusing)2040 (Given - Provider: Geetha Navas, MEGAN) 819 (Given - Provider: Nakul Rodríguez, RN) Continuous Medication Order 10/19/2022 10/20/2022 10/21/2022 lactated ringers infusion (CANCELED) 1,000 mL, at 100 mL/hr, Intravenous, CONTINUOUS, Starting on Sat10/19/22 at 0745, Until Sat10/19/22 at 1739, Day of Surgery (Day of Procedure) 0831 (New Bag - Provider: Renetta Mandujano RN) lactated ringers infusion (CANCELED) 1,000 mL, at 125 mL/hr, Intravenous, CONTINUOUS, Starting on Sat10/19/22 at 1430, Until 10/20/22 at 1254 1411 (New Bag - Provider: Wanda Guzman RN)2130 (New Bag - Provider: Geetha Navas, RN) 0559 (New Bag - Provider: Geetha Navas, RN)1247 (New Bag - Provider: Rozina Ahuja, MEGAN) lactated ringers infusion 75 mL/hr, Intravenous, CONTINUOUS, Starting on 10/20/22 at 1345, Until 10/21/22 at 1628 1345 (Rate/Dose Change - Provider: Rozina Ahuja, MEGAN) 0141 (New Bag - Provider: Geetha Navas, MEGAN)1628 (Due: Stopped) PRN Medication Order 10/19/2022 10/20/2022 10/21/2022 BUpivacaine (pf) (Marcaine) (2.5 mg/mL) 0.25% injection (CANCELED) ONCE PRN, Starting on Sat10/19/22 at 1319, Until 10/21/22 at 1628, Intra-Operative (Intra-Procedure), Routine 1319 (Given - Provider: Ronda Mckeon MD) dextrose 10% infusion(Linked Group 1) 250 mL, at 1,000 mL/hr, Intravenous, EVERY 30 MIN PRN, Starting on Sat10/19/22 at 1400, Until 10/21/22 at 1628, For BG 50-70 mg/dL: Oral treatment preferred: If able to drink, give 120 mL Juice or Regular (not diet) soda OR If NPO, give 15 gram glucose 40% oral gel massaged into buccal mucosa OR if unconscious or uncooperative, give 25 gram (250 mL) Dextrose 10% IV over 15 minutes per protocol OR, if no IV access, 1 mg Glucagon IM. For BG less than 50 mg/dL: Oral treatment preferred: If able to drink, give 240 mL Juice or Regular (not diet) soda OR If NPO, give 30 gram glucose 40% oral gel massaged in buccal mucosa OR if unconscious or uncooperative, give 25 gram (250 mL) Dextrose 10% IV over 15 minutes per protocol OR, if no IV access, 1 mg Glucagon IM. Recheck BG in 30 minutes. May repeat juice/soda, gel, dextrose or glucagon once per episode. For persistent hypoglycemia, consider longer-acting treatment for the duration of the active insulin. glucagon (Glucagen) (1 mg/mL) injection solution 1 mg(Linked Group 1) 1 mg, Intramuscular, EVERY 30 MIN PRN, Starting on Sat10/19/22 at 1400, Until 10/21/22 at 1628, Low blood sugar, For BG 50-70 mg/dL: Oral treatment preferred: If able to drink, give 120 mL Juice or Regular (not diet) soda OR If NPO, give 15 gram glucose 40% oral gel massaged into buccal mucosa OR if unconscious or uncooperative, give 25 gram (250 mL) Dextrose 10% IV over 15 minutes per protocol OR, if no IV access, 1 mg Glucagon IM. For BG less than 50 mg/dL: Oral treatment preferred: If able to drink, give 240 mL Juice or Regular (not diet) soda OR If NPO, give 30 gram glucose 40% oral gel massaged in buccal mucosa OR if unconscious or uncooperative, give 25 gram (250 mL) Dextrose 10% IV over 15 minutes per protocol OR, if no IV access, 1 mg Glucagon IM. Recheck BG in 30 minutes. May repeat juice/soda, gel, dextrose or glucagon once per episode. For persistent hypoglycemia, consider longer-acting treatment for the duration of the active insulin., Routine glucose (Glutose) 40% oral geL(Linked Group 1) 15-30 g of glucose, Buccal, EVERY 30 MIN PRN, Starting on Sat10/19/22 at 1400, Until 10/21/22 at 1628, Low blood sugar, For BG 50-70 mg/dL: Oral treatment preferred: If able to drink, give 120 mL Juice or Regular (not diet) soda OR If NPO, give 15 gram glucose 40% oral gel massaged into buccal mucosa OR if unconscious or uncooperative, give 25 gram (250 mL) Dextrose 10% IV over 15 minutes per protocol OR, if no IV access, 1 mg Glucagon IM. For BG less than 50 mg/dL: Oral treatment preferred: If able to drink, give 240 mL Juice or Regular (not diet) soda OR If NPO, give 30 gram glucose 40% oral gel massaged in buccal mucosa OR if unconscious or uncooperative, give 25 gram (250 mL) Dextrose 10% IV over 15 minutes per protocol OR, if no IV access, 1 mg Glucagon IM. Recheck BG in 30 minutes. May repeat juice/soda, gel, dextrose or glucagon once per episode. For persistent hypoglycemia, consider longer-acting treatment for the duration of the active insulin. 1 tube of Glutose-15 contains 15 grams of glucose (net weight of tube = 37.5 grams.), Routine HYDROmorphone (Dilaudid) (0.5 mg/0.5 mL) injection syringe 0.5 mg 0.5 mg, Intravenous, EVERY 4 HOURS PRN, Starting on 10/20/22 at 0645, Until 10/21/22 at 1628, Pain, breakthrough pain, For breakthrough pain not responsive to oxyCODONE or if patient is unable to tolerate PO due to nausea., Routine HYDROmorphone (Dilaudid) (2 mg/mL) multi-dose injection solution 0.2 mg (CANCELED)(Linked Group 2) 0.2 mg, Intravenous, EVERY 10 MIN PRN, Starting on Sat10/19/22 at 1326, Until Sat10/19/22 at 1739, Pain, For Mild to Moderate Pain (1-5 out of 10), Hold for respiratory rate less than 10 per minute. Maximum dose 3 mg over one hour including administrations in the OR. If multiple pain medications are ordered, start with HYDROmorphone or morphine and use fentaNYL for breakthrough pain., PACU Recovery, Routine 1445 (Given - Provider: Wanda Guzman RN) insulin lispro (HumaLOG;Admelog) (100 unit/mL) subcutaneous injection vial 1-6 Units(Linked Group 3) 1-6 Units, Subcutaneous, EVERY 6 HOURS PRN, Starting on Sat10/19/22 at 1400, Until 10/21/22 at 1628, see correction below, CORRECTION BOLUS [1-6 Units] Moderate Sliding Scale (BG in mg/dL): Correction factor 20 (1 unit of insulin is expected to drop the glucose 20 mg/dL) BG 140 - 160 Give 1 unit BG 161 - 180 Give 2 units BG 181 - 200 Give 3 units BG 201 - 220 Give 4 units BG 221 - 240 Give 5 units BG greater than 240, give 6 units and recheck BG in 2 hours. - If recheck BG is LESS than 240, give no insulin and resume schedule. - If recheck BG is GREATER than 240, give 6 units and repeat BG in 2 hours (no more than 3 times) & call for new insulin orders. DO NOT hold if NPO, unless specifically directed to do so by written order. Per Blood Glucose Monitoring Policy, re-check a BG of > 240 mg/dL in 2 hours., Routine 1732 (Given - Provider: Wanda Guzman RN) lidocaine (Xylocaine) 1% (10 mg/mL) injection 3 mg 3 mg (0.3 mL), Subcutaneous, ONCE PRN, 1 dose, Starting on 10/20/22 at 0645, Until 10/21/22 at 1628, for discomfort with PIV insertion, Recovery (Recovery-Hospital Unit), Routine oxyCODONE (Roxicodone) (1 mg/mL) oral liquid 5 mg (CANCELED) 5 mg, Oral, EVERY 4 HOURS PRN, Starting on Sat10/19/22 at 1400, Until 10/20/22 at 0842, Pain, Moderate-Severe pain 4-10, Routine 2130 (Given - Provider: Geetha Navas RN) 0740 (Given - Provider: Rozina Ahuja RN) oxyCODONE (Roxicodone) tablet 5 mg 5 mg, Oral, EVERY 4 HOURS PRN, Starting on 10/20/22 at 0840, Until 10/21/22 at 1628, Pain, Okay to split tablet or crush, Routine prochlorperazine (Compazine) (5 mg/mL) injection 10 mg 10 mg, Intravenous, EVERY 6 HOURS PRN, Starting on 10/19/22 at 1400, Until 10/21/22 at 1628, Nausea, Vomiting, For nausea please use ondansetron as the first choice; prochlorperazine as a second choice; promethazine as a third choice. Call provider if not effective., Routine 1451 (Given - Provider: Wanda Guzman RN) promethazine (Phenergan) (25 mg/mL) injection 6.25 mg 6.25 mg, Intravenous, EVERY 4 HOURS PRN, Nausea, Starting on 10/19/22 at 1400, Until 10/21/22 at 1628, For nausea please use ondansetron as the first choice; prochlorperazine as a second choice; promethazine as a third choice. Call provider if not effective. sodium chloride 0.9 % (flush) (BD PosiFlush Normal Saline 0.9) flush 5-20 mL 5-20 mL, Intravenous, EVERY 1 MIN PRN, Starting on 10/20/22 at 0645, Until 10/21/22 at 1628, flush, Flush pertains to all indwelling lines. Flush per protocol found in the job aid using the link provided on this medication record., Recovery (Recovery-Hospital Unit), Routine Linked Groups Order Group 1: glucose (Glutose) 40% oral geLJump to med 15-30 g of glucose, Buccal, EVERY 30 MIN PRN, Starting on 10/19/22 at 1400, Until 10/21/22 at 1628, Low blood sugar, For BG 50-70 mg/dL: Oral treatment preferred: If able to drink, give 120 mL Juice or Regular (not diet) soda OR If NPO, give 15 gram glucose 40% oral gel massaged into buccal mucosa OR if unconscious or uncooperative, give 25 gram (250 mL) Dextrose 10% IV over 15 minutes per protocol OR, if no IV access, 1 mg Glucagon IM. For BG less than 50 mg/dL: Oral treatment preferred: If able to drink, give 240 mL Juice or Regular (not diet) soda OR If NPO, give 30 gram glucose 40% oral gel massaged in buccal mucosa OR if unconscious or uncooperative, give 25 gram (250 mL) Dextrose 10% IV over 15 minutes per protocol OR, if no IV access, 1 mg Glucagon IM. Recheck BG in 30 minutes. May repeat juice/soda, gel, dextrose or glucagon once per episode. For persistent hypoglycemia, consider longer-acting treatment for the duration of the active insulin. 1 tube of Glutose-15 contains 15 grams of glucose (net weight of tube = 37.5 grams.), Routine Or dextrose 10% infusionJump to med 250 mL, at 1,000 mL/hr, Intravenous, EVERY 30 MIN PRN, Starting on Sat10/19/22 at 1400, Until Sat10/21/22 at 1628, For BG 50-70 mg/dL: Oral treatment preferred: If able to drink, give 120 mL Juice or Regular (not diet) soda OR If NPO, give 15 gram glucose 40% oral gel massaged into buccal mucosa OR if unconscious or uncooperative, give 25 gram (250 mL) Dextrose 10% IV over 15 minutes per protocol OR, if no IV access, 1 mg Glucagon IM. For BG less than 50 mg/dL: Oral treatment preferred: If able to drink, give 240 mL Juice or Regular (not diet) soda OR If NPO, give 30 gram glucose 40% oral gel massaged in buccal mucosa OR if unconscious or uncooperative, give 25 gram (250 mL) Dextrose 10% IV over 15 minutes per protocol OR, if no IV access, 1 mg Glucagon IM. Recheck BG in 30 minutes. May repeat juice/soda, gel, dextrose or glucagon once per episode. For persistent hypoglycemia, consider longer-acting treatment for the duration of the active insulin. Or glucagon (Glucagen) (1 mg/mL) injection solution 1 mgJump to med 1 mg, Intramuscular, EVERY 30 MIN PRN, Starting on Sat10/19/22 at 1400, Until Sat10/21/22 at 1628, Low blood sugar, For BG 50-70 mg/dL: Oral treatment preferred: If able to drink, give 120 mL Juice or Regular (not diet) soda OR If NPO, give 15 gram glucose 40% oral gel massaged into buccal mucosa OR if unconscious or uncooperative, give 25 gram (250 mL) Dextrose 10% IV over 15 minutes per protocol OR, if no IV access, 1 mg Glucagon IM. For BG less than 50 mg/dL: Oral treatment preferred: If able to drink, give 240 mL Juice or Regular (not diet) soda OR If NPO, give 30 gram glucose 40% oral gel massaged in buccal mucosa OR if unconscious or uncooperative, give 25 gram (250 mL) Dextrose 10% IV over 15 minutes per protocol OR, if no IV access, 1 mg Glucagon IM. Recheck BG in 30 minutes. May repeat juice/soda, gel, dextrose or glucagon once per episode. For persistent hypoglycemia, consider longer-acting treatment for the duration of the active insulin., Routine Group 2: HYDROmorphone (Dilaudid) (2 mg/mL) multi-dose injection solution 0.2 mg (CANCELED)Jump to med 0.2 mg, Intravenous, EVERY 10 MIN PRN, Starting on Sat10/19/22 at 1326, Until Sat10/19/22 at 1739, Pain, For Mild to Moderate Pain (1-5 out of 10), Hold for respiratory rate less than 10 per minute. Maximum dose 3 mg over one hour including administrations in the OR. If multiple pain medications are ordered, start with HYDROmorphone or morphine and use fentaNYL for breakthrough pain., PACU Recovery, Routine Or HYDROmorphone (Dilaudid) (2 mg/mL) multi-dose injection solution 0.4 mg (CANCELED) 0.4 mg, Intravenous, EVERY 10 MIN PRN, Starting on Sat10/19/22 at 1326, Until Sat10/19/22 at 1739, Pain, For Moderate to Severe Pain (6-10 out of 10), Hold for respiratory rate less than 10 per minute. Maximum dose 3 mg over one hour including administrations in the OR. If multiple pain medications are ordered, start with HYDROmorphone or morphine and use fentaNYL for breakthrough pain., PACU Recovery, Routine Group 3: POCT Fingerstick Glucose (CANCELED) Routine, EVERY 6 HOURS, First occurrence on Sat10/19/22 at 1800, Until Specified, Consider choosing EVERY 4 HOURS as frequency for: - Type 1 Diabetes - At least 24 hours after coming off an insulin drip - At least 24 hours after admission for DKA - Hypoglycemia unawareness - Patients who are otherwise unstable Select the same frequency for the correction bolus insulin order And insulin lispro (HumaLOG;Admelog) (100 unit/mL) subcutaneous injection vial 1-6 UnitsJump to med 1-6 Units, Subcutaneous, EVERY 6 HOURS PRN, Starting on Sat10/19/22 at 1400, Until Sat10/21/22 at 1628, see correction below, CORRECTION BOLUS [1-6 Units] Moderate Sliding Scale (BG in mg/dL): Correction factor 20 (1 unit of insulin is expected to drop the glucose 20 mg/dL) BG 140 - 160 Give 1 unit BG 161 - 180 Give 2 units BG 181 - 200 Give 3 units BG 201 - 220 Give 4 units BG 221 - 240 Give 5 units BG greater than 240, give 6 units and recheck BG in 2 hours. - If recheck BG is LESS than 240, give no insulin and resume schedule. - If recheck BG is GREATER than 240, give 6 units and repeat BG in 2 hours (no more than 3 times) & call for new insulin orders. DO NOT hold if NPO, unless specifically directed to do so by written order. Per Blood Glucose Monitoring Policy, re-check a BG of > 240 mg/dL in 2 hours., Routine documented in this encounter Care Teams Lehr Operator Relationship Specialty Start Date End Date Carolynn Wisdom APRN [address] [place] [address] [address] [place] [address] PCP - General Family Medicine 03/08/20 documented as of this encounter
--- OUTSIDE RECORDS SUMMARY | 2024-01-17 18:04 | XMS_ITS | Encounter Summary ---
Author Organization [facility] Address [facility] [place] [address] Care Team Providers Care Control Valve Technician Name Role Phone Carolynn Wisdom [employer] Primary Care Provider Encounter Details Date Type Department Care Team (Late st Contact Info) Description 03/21/[address] [facility] [address] [place] [phone] Louise Curiel MD [facility] [place] [address] Social History Tobacco Use Types Packs/Day Years [...] on file documented as of this encounter Miscellaneous Notes * Telephone Encounter - Na Haro - 03/21/2023 11:26 AM EDT ustekinumab (Stelara) 90 mg/mL subcutaneous injection has been approved by [facility] and [facility]. . Fax authorization to follow. Please inform patient. documented in this encounter Plan of Treatment Upcoming Encounters Date Type Department Care Team (Late st Contact Info) Description 02/01/2025 2:15 PM EDT Office Visit Dermatology at [facility] [address] [place] [id number] Regina Rivas MD [facility] [place] [address] documented as of this encounter Goals Goal [...] Continue to work with sleep at [facility] Goal 7 hours of sleep nightly. [...] on filedocumented in this encounter Care Teams Control Valve Technician Relationship Specialty Start Date End Date Carolynn Wisdom APRN [address] [place] [address] PCP - General Family Medicine 03/08/20 documented as of this encounter
--- OUTSIDE RECORDS SUMMARY | 2024-01-17 18:04 | XMS_ITS | Encounter Summary ---
Author Organization [facility]ly [facility], [facility] Address [facility] [place] [address] Care Team Providers Care Runstitching Machine Operator Name Role Phone Carolynn Wisdom CANDE Primary Care Provider Reason for Visit * Reason Comments Medication Refill Encounter Details Date Type Department Care Team (Late st Contact Info) Description 01/07/2023 Refill [place] [address] [place] [address] Social History Tobacco Use Types Packs/Day Years Used Date Smoking Tobacco: Former Cigarettes 0.3 3 0 12/31/1986 - 12/31/1989 Smokeless Tobacco: Never Alcohol Use Standard Drinks/Week Comments Yes 3 (1 standard drink = 0.6 oz pur e alcohol) [facility] Inpatient Questions Answer Date Recorded Does [...] 2:15 PM EDT Office Visit Dermatology at [facility] [address] [place] [address] Regina Rivas MD [facility] [place] [address] documented as of this encounter Goals Goal [...] Note: Continue to work with sleep at [facility] Goal 7 hours of [...] on filedocumented in this encounter Care Teams Runstitching Machine Operator Relationship Specialty Start Date End Date Carolynn Wisdom APRN [address] [place] [address] PCP - General Family Medicine 03/08/20 documented as of this encounter
--- OUTSIDE RECORDS SUMMARY | 2024-01-17 18:04 | XMS_ITS | Encounter Summary ---
[place] [address] Care Team Providers Care Help Desk Associate Name Role Phone Carolynn Wisdom APRN Primary Care Provider Reason for Visit * Reason Comments Prior Authorization Stelara 90mg/ml sosy Encounter Details Date Type Department Care Team (Late st Contact Info) Description 03/20/2023 Specialty Pharmacy [place] [address] Ibeth Bermudez, STOCK RAISER Social History Tobacco Use Types Packs/Day Years Used Date Smoking Tobacco: Former Cigarettes 0.3 3 0 12/31/1986 - 12/31/1989 Smokeless Tobacco: Never Alcohol Use Standard Drinks/Week Comments Yes 3 (1 standard drink = 0.6 oz pur e alcohol) [facility] Inpatient Questions Answer Date Recorded Does Anyone [...] as of this encounter Progress Notes * Ibeth Bermudez - 03/20/2023 11:53 AM EDT [facility], Medication Prior Authorization Submission Patient: Melinda Goncalves Patient : 1960 Patient Address: [address] [address] Phone: [phone] (home) Medication Name: STELARA 90 MG/ML SUBCUTANEOUS SYRINGE Medication ID: [id number] Subscriber Insurance: Subscriber Insurance Comment: [facility] ([facility]) Phone: Fax: Physician: PATRICIA HASSAN Physician Comment: Sent Via: [facility] Oneal: [id number] Ref/Case/PA#: Medication Strength Frequency Requested: INJECT THE CONTENTS OF ONE SYRINGE SUBCUTANEOUSLY EVERY 12WEEKS Qty/Day Supply: New Start: Renewal 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 Patient Notified: No Submission Notes: None Ibeth Bermudez 03/20/23 11:54 AM * Ibeth Bermudez - 03/20/2023 11:53 AM EDT [facility], Prior Authorization Approval Medication Name: STELARA 90 MG/ML SUBCUTANEOUS SYRINGE Medication ID: [id number] Approval Dates: 03/20/2023 to 03/20/2024 Insurance requirements/notes: None Other Notes: None Case/Reference #: [id number] Approval notification Received via: [facility] Copay: Copay assistance: Copay Notes: Per fill hx, $5.00 copay Insurance mandated Pharmacy: [facility] Fill[facility] at [facility]: Yes Patient Notified: No Pharmacy staff will be reaching out to the patient to inform them of [facility]. If applicable, a pharmacist will speak with the patient to offer our specialty pharmacy services and to arrange delivery of their medication. Ibeth Bermudez 03/20/23 3:18 PM documented in this encounter Plan of Treatment Upcoming Encounters Date Type Department Care Team (Late st Contact Info) Description 02/01/2025 2:15 PM EDT Office Visit Dermatology at [facility] [address] [place] [phone] Regina Rivas MD [facility] [place] [address] documented as of this encounter Goals Goal [...] Continue to work with sleep at [facility] Goal 7 hours of sleep nightly. Recommend consistent sleep and wake times, avoid electronics within one hour of sleep time movement Lifestyle No Leonid, Michelle L, MAT MACHINE OPERATOR Note: Exercise goal is 150 -300 min a week, prioritize self so you have time to exercise Recommend resistance training 3 times a week -can use [employer] Nutrition - 02/27/22 Lifestyle On track(2021 11:38 AM EDT) Yessy Finn, RD Note: Nutrition Goals: Establish consistent meal [...] on filedocumented in this encounter Care Teams Help Desk Associate Relationship Specialty Start Date End Date Carolynn Wisdom APRN [address] [place] [address] PCP - General Family Medicine 03/08/20 documented as of this encounter
--- OUTSIDE RECORDS SUMMARY | 2024-01-17 18:04 | XMS_ITS | Encounter Summary ---
Author Organization [facility] Address [facility] [place] [address] Care Team Providers Care Drill Sharpener Name Role Phone Carolynn Wisdom APRN Primary Care Provider Encounter Details Date Type Department Care Team (Late st Contact Info) Description 06/18/2023 1:28 PM EST - 06/18/2023 11:59 PM [facility] Hospital Encounter Mammography/[place] [address] Carolynn Wisdom APRN [address] [place] [address] Visit for screening mammogram Discharge Disposition: Home Social History Tobacco Use Types Packs/Day Years Used Date Smoking Tobacco: Former Cigarettes 0.3 3 0 12/31/1986 - 12/31/1989 Smokeless Tobacco: Never Alcohol Use Standard Drinks/Week Comments Yes 3 (1 standard drink = 0.6 oz pur e alcohol) [facility] Inpatient Questions Answer Date Recorded Does Anyone [...] on file documented as of this encounter Medications at Time of Discharge [...] UES WITH LANTUS ONCE A DAY 06/26/2022 nystatin-triamcinolone (MYCOLOG II) Cream APPLY TO AFFECTED AREA(S) TWO TIMES A DAY 05/30/2022 clobetasoL (Temovate) 0.05 % OintmentIndications:In verse psoriasis Apply topically twice a day on weekends, avoid face. 60 g 08/18/2021 tacrolimus (Protopic) 0.1 % OintmentIndications:In verse psoriasis Apply to areas of psoriasis twice [...] mouth daily. 04/12/2021 clobetasoL (TEMOVATE) 0.05 % SolutionIndications:In verse psoriasis Apply topically to the scalp once daily for 2 weeks then take a week off and then repeat as needed 50 mL 1 06/08/2021 ketoconazole (NIZORAL) 2 % CreamIndications:Inter sid Apply topically to areas under the breast and in the groin once daily for 3 weeks. Then use a few times weekly for maintenance. 60 g 3 02/14/2021 calcipotriene (Dovonex) 0.005 % CreamIndications:Inver se psoriasis Apply to lesions on body twice a day M-F 120 g 12/16/2020 triamcinolone (KENALOG) 0.1 % Cream as needed. 07/14/2020 clotrimazole (LOTRIMIN) 1 % Cream Apply topically. 07/13/2020 ustekinumab (Stelara) 90 mg/mL subcutaneous injection Inject 1 mL subcutaneously Every 8 Weeks. 1 mL 2 04/23/2023 12/02/2023 documented as of this encounter Plan of Treatment Upcoming Encounters Date Type Department Care Team (Late st Contact Info) Description 02/01/2025 2:15 PM EDT Office Visit Dermatology at [facility] [address] [place] [address] Regina Rivas MD [facility] [place] [address] documented as of this encounter Goals Goal Patient Goal Type Associated Problems Recent Progress Patient-Stated? Author meal timing/food choices/ bariatric behaviors Lifestyle On track(2021 11:38 AM EDT) Michelle Tai, CANDE Note: Work on eating more mindfully [...] Not on track(2021 11:37 AM EDT) Michelle Tai, CANDE Note: Mindfulness/deep breathing practice to reduce cortisol -try for at least 10 minutes a day sleep Lifestyle On track(2021 11:37 AM EDT) No Michelle Jaquze APRN Note: Continue to work with sleep at [facility] Goal 7 hours of sleep nightly. Recommend [...] Associated Diagnosis Comments MAMMO SCREENING CAD AND KEEGAN BILATERAL Routine 06/18/2023 2:09 PM EST Visit for screening mammogram documented in this encounter Results * Mammo Screening Cad and Keegan Bilateral (06/18/2023 2:09 PM EST) Anatomical Region [...] who have questions please contact the health respiratory care practitioner that requested your imaging first. ? Narrative 06/19/2023 7:28 AM EST EXAMINATION: MAMMO SCREENING CAD AND KEEGAN BILATERAL REASON FOR EXAM: Screening TECHNIQUE: CC [...] or areas of distortion. Stable appearance. Carolynn Wisdom APRN IMG MAMMO ORDERABLE S documented in this encounter Visit Diagnoses Diagnosis Visit for screening mammogram Other screening mammogram documented in this encounter Care Teams Drill Sharpener Relationship Specialty Start Date End Date Carolynn Wisdom APRN [address] [place] [address] PCP - General Family Medicine 03/08/20 documented as of this encounter
--- OUTSIDE RECORDS SUMMARY | 2024-01-17 18:04 | XMS_ITS | Encounter Summary ---
Author Organization [facility] Address [facility] [place] [address] Care Team Providers Care Moulder Operator Name Role Phone Carolynn Wisdom CMM INSPECTOR Primary Care Provider Encounter Details Date Type Department Care Team (Late st Contact Info) Description 10/24/2022 Telephone [place] [phone] Mirian Horowitz, RD [facility] [place] [place] [address] Social History Tobacco Use Types Packs/Day Years [...] encounter Miscellaneous Notes * Telephone Encounter - Mirian Horowitz, RD - 10/24/2022 3:16 PM EDT TC to pt. S/p bariatric surgery on 4/21/[address] Mckeon. Left . Provided contact information and asked pt to return my call. documented in this encounter Plan of Treatment Upcoming Encounters Date Type Department Care Team (Late st Contact Info) Description 02/01/2025 2:15 PM EDT Office Visit Dermatology at [facility] [address] [place] [phone] Regina Rivas MD [facility] [place] [address] documented as of this encounter Goals Goal [...] Note: Continue to work with sleep at [facility] Goal 7 hours of sleep nightly. Recommend consistent sleep and wake times, avoid electronics within one hour of sleep time movement Lifestyle No Michelle Jaquez, CMM INSPECTOR Note: Exercise goal is 150 -300 min [...] on filedocumented in this encounter Care Teams Moulder Operator Relationship Specialty Start Date End Date Carolynn Wisdom APRN [address] [place] [address] PCP - General Family Medicine 03/08/20 documented as of this encounter
--- OUTSIDE RECORDS SUMMARY | 2024-01-17 18:04 | XMS_ITS | Encounter Summary ---
[place] [address] Care Team Providers Care Environmental Sciences Professor Name Role Phone Carolynn Wisdom FOURCHETTE SEWER Primary Care Provider Reason for Visit * Reason Comments Medication Management Encounter Details Date Type Department Care Team (Late st Contact Info) Description 11/01/2022 Specialty Pharmacy [place] [address] Ibeth Real [facility] Social History Tobacco Use Types Packs/Day Years Used Date Smoking Tobacco: Former Cigarettes 0.3 3 0 12/31/1986 - 12/31/1989 Smokeless Tobacco: Never Alcohol Use Standard Drinks/Week Comments Yes 3 (1 standard drink = 0.6 oz pur e alcohol) [facility] Inpatient Questions Answer Date Recorded Does [...] of this encounter Progress Notes * Ibeth Real RP - 11/01/2022 1:30 PM EDT Specialty Pharmacy Consultation; Ibeth Real RPH Comprehensive Medication Management (CMM): Specialty Consult, Intervention Melinda Goncalves Diagnosis: inverse psoriasis Contact in person or via telephone: phone Ms. Melinda Goncalves is a 62 y.o. (1960) female who was contacted in regard to specialty medication intervention. Spoke with patient regarding Stelara. Specialty Pharmacy Intervention: Intervention Category (Nature of Intervention): Drug Utilization (DUR)/Drug Interaction or Duplication Identified Drug Utilization/Interaction or Duplication Comment: Patient had bariatric surgery 10/19/22. When is it safe to start Stelara? Recommendation: Melinda held her dose of Stelara due to having bariatric surgery. Her surgery was on 10/19/2022. She has finished her Lovenox DVT prophylaxis course, no longer needs oxycodone for pain, and is currently taking APAP nightly for pain and is starting a 3 month course of ursodiol today to prevent gallstones. Her current calorie intake is 500 kcals/day and this is due to be increased this Saturday. She has a follow-up with the surgeon on 11/09 (3 weeks after her surgery). I have no concerns for drug interaction but bariatric surgery is an invasive procedure and we want to make sure her incisions have healed and she is not at risk for infections prior to restarting immunosuppressive therapy. Outcome: Melinda is aware we will not refill her Stelara yet until we hear from her inspector scales on when it is safe to resume Stelara therapy. Once a determination is made, we will communicate this decision with her. Ibeth Real RPH 11/01/22 2:10 PM * Ibeth Real RPH - 11/01/2022 1:30 PM EDT Specialty Pharmacy Consultation; Ibeth Real RPH Comprehensive Medication Management (CMM): Specialty Consult, Intervention Melinda Goncalves Diagnosis: inverse psoriasis Contact in person or via telephone: phone Ms. Melinda Goncalves is a 62 y.o. (1960) female who was contacted in regard to specialty medication intervention. Spoke with patient regarding Stelara. Specialty Pharmacy Intervention: Intervention Category (Nature of Intervention): Drug Utilization (DUR)/Drug Interaction or Duplication Identified Drug Utilization/Interaction or Duplication Comment: Patient had bariatric surgery 10/19/22. When is it safe to start Stelara? Recommendation: Discuss with surgeon and inspector scales on when it is safe to resume Stelara after bariatric surgery. Outcome: Surgeon says it is safe to resume Stelara one month after surgery. Surgery date 10/19 so safe to resume 11/16. Welt Maker says ok to resume maintenance dose of every 12 weeks. Patient was made awareand confirmed understanding of recommendation. Stelara was filled at shipped to her home. Ibeth Real RPH 11/14/22 12:43 PM documented in this encounter Plan of Treatment Upcoming Encounters Date Type Department Care Team (Late st Contact Info) Description 02/01/2025 2:15 PM EDT Office Visit Dermatology at [place] [address] [address] Regina Rivas MD [facility] [place] [address] documented as of this encounter Goals Goal [...] Continue to work with sleep at [facility] Goal 7 hours of sleep nightly. [...] Visit Diagnoses Diagnosis Inverse psoriasis Other psoriasis documented in this encounter Care Teams Environmental Sciences Professor Relationship Specialty Start Date End Date Artis CANDE Pradhan [address] [place] [address] PCP - General Family Medicine 03/08/20 documented as of this encounter
--- OUTSIDE RECORDS SUMMARY | 2024-01-17 18:04 | XMS_ITS | Encounter Summary ---
Author Organization [facility] Address [facility] [place] [address] Care Team Providers Care Dry Dip Worker Name Role Phone Carolynn Wisdom APRN Primary Care Provider Encounter Details Date Type Department Care Team (Late st Contact Info) Description 04/23/2023 Refill Dermatology at [facility] [address] [place] [phone] Louise Curiel MD [facility] [place] [address] Social History Tobacco Use Types Packs/Day Years [...] 2:15 PM EDT Office Visit Dermatology at [facility] [address] [place] [address] Regina Rivas MD [facility] [place] [address] documented as of this encounter Goals Goal [...] Note: Continue to work with sleep at [facility] Goal 7 hours of sleep nightly. [...] on filedocumented in this encounter Care Teams Dry Dip Worker Relationship Specialty Start Date End Date Carolynn Wisdom APRN [address] [place] [address] PCP - General Family Medicine 03/08/20 documented as of this encounter
--- OUTSIDE RECORDS SUMMARY | 2024-01-17 18:04 | XMS_ITS | Encounter Summary ---
Author Organization [facility] [place] [address] Care Team Providers Care Alloy Weigher Name Role Phone MelodieCarolynn judd CANDE Primary Care Provider Encounter Details Date Type Department Care Team (Late st Contact Info) Description 10/23/2022 Telephone [place] [phone] Mirian Resendiz, RN Social History Tobacco Use Types Packs/Day Years Used Date Smoking Tobacco: Former Cigarettes 0.3 3 0 12/31/1986 - 12/31/1989 Smokeless Tobacco: Never Alcohol Use Standard Drinks/Week Comments Yes 3 (1 standard drink = 0.6 oz pur e alcohol) [facility] Inpatient Questions Answer Date Recorded Does Anyone [...] Miscellaneous Notes * Telephone Encounter - Mirian Resendiz RN - 10/23/2022 1:45 PM EDT 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 Mckeon Discharged on PO Day #:2 Issues during hospitalization: none Today's phone discussion took place with patient, Mirian BlissGrisel Goncalves was called via phone for post discharge follow up. Diet: stage:2 Fluids:Pt states that she is drinking, drinking, drinking. She estimates that it has been getting better every day, and yesterday she was able to get in 48 oz. Protein: She estimates she is getting in about 40+ g protein, yesterday was 48g. She is drinking Ensure which has 30 g protein and she is going to try mixing protein powder into yogurt. Other: Nausea/ vomiting: no Urination: adequate, no difficulties Bowels: Has not moved her bowels since Saturday. She has been taking Fiber One three times a day. I suggested she switch to Miralax daily. Since it has been 3+ days since her last BM, I also suggested that she get some MOM to get things moving. She is passing some gas. Activity level: Pt getting up and moving around a bit Pain level, analgesia requirements:still sore. Taking tylenol for pain. Took an oxycodone this morning because she was sore. Has taken 3 total. Any significant changes to comorbidites/ medications (ex DM, HTN):her blood sugar this morning was 112 and a little later was 98 Medications: Currently crushing or taking liquid form of medications, as appropriate:yes Taking ulcer prevention medication:yes Taking Ursodiol (if appropriate): has prescription, she took a dose last night and a dose this morning. I told her that is supposed to start 2 weeks after surgery. She will hold it until then and then start taking VTE prophylaxis: enoxaparin: yes Follow up: PCP appointment: has appointment on 10/29 and 11/09 with DANDY OPERATOR and RD Patient questions: no specific questions that weren't answered with the general information. Recommendations: I explained that for right now, miralax is a better choice than Fiber one for her bowels. I also suggested MOM to help get things moving. I explained that getting in enough protein and fluids can be challenging in this fresh post op time. I told her that some people will drink 2 protein shakes a day (25-30 g each) and others will get unflavored protein powder and add it to everything. I encouraged her to call with any questions/concerns. documented in this encounter Plan of Treatment Upcoming Encounters Date Type Department Care Team (Late st Contact Info) Description 02/01/2025 2:15 PM EDT Office Visit Dermatology at [facility] [address] [place] [phone] Regina Rivas MD [facility] [place] [address] documented as of this encounter Goals Goal [...] Note: Continue to work with sleep at [facility] Goal 7 hours of sleep nightly. [...] on filedocumented in this encounter Care Teams Alloy Weigher Relationship Specialty Start Date End Date Carolynn Wisdom APRN [address] [place] [address] PCP - General Family Medicine 03/08/20 documented as of this encounter
--- OUTSIDE RECORDS SUMMARY | 2024-01-17 18:04 | XMS_ITS | Encounter Summary ---
Author Organization [facility] Address [facility] [place] [address] Care Team Providers Care Chief Learning Officer Name Role Phone Carolynn Wisdom APRN Primary Care Provider Encounter Details Date Type Department Care Team (Latest Contact Info) Description 02/14/2023 Travel Social History Tobacco Use Types Packs/Day [...] Office Visit Dermatology at [facility] [address] [place] [address] Regina Rivas MD [facility] [place] [address] documented as of this encounter Goals Goal [...] track(2021 11:37 AM EDT) No Michelle Jaquez, ELECTRONIC PARTS DESIGNER Note: Mindfulness/deep breathing practice to reduce cortisol -try for at least 10 minutes a day sleep Lifestyle On track(2021 11:37 AM EDT) Michelle Tai, CANDE Note: Continue to work with sleep at [facility] Goal 7 hours of sleep nightly. Recommend [...] on filedocumented in this encounter Care Teams Chief Learning Officer Relationship Specialty Start Date End Date Carolynn Wisdom APRN [address] [place] [address] PCP - General Family Medicine 03/08/20 documented as of this encounter
--- OUTSIDE RECORDS SUMMARY | 2024-01-17 18:04 | XMS_ITS | Encounter Summary ---
[place] [address] Care Team Providers Care Ticket Collector Name Role Phone Carolynn Wisdom APRN Primary Care Provider Reason for Visit * Reason Comments Specialty Refill Management Specialty Pharmacy Review Encounter Details Date Type Department Care Team (Late st Contact Info) Description 04/18/2023 Specialty [place] [address] Ibeth Real [facility] Social History Tobacco Use Types Packs/Day Years Used Date Smoking Tobacco: Former Cigarettes 0.3 3 0 12/31/1986 - 12/31/1989 Smokeless Tobacco: Never Alcohol Use Standard Drinks/Week Comments Yes 3 (1 standard drink = 0.6 oz pur e alcohol) [facility] Inpatient Questions Answer Date Recorded Does [...] this encounter Progress Notes * Ibeth Real RPH - 04/18/2023 10:37 AM EDT Clinical Management Plan: Refill Specialty Pharmacy Consultation; Ibeth Real RPH Comprehensive Medication Management (CMM) Melinda Goncalves is a 63 y.o. (1960) female who was contacted in regard to a specialty medication refill reminder. Contact made with patient regarding Stelara. A review of the medication therapy was performed. The medication was refilled as scheduled, and all medication related questions and concerns were addressed. The specialty pharmacy staff will follow up with the patient 5-7 days prior to next refill. Was a change made to the Care Plan: Discussing with provider if ok to change frequency from q12w toq8w If yes, should the medication be held: No Assessment and Recommendations: Medication Management Type of Medication Management: chronic disease management, targeted medication review Referred By: provider Recipient: beneficiary Provider: plan sponsor pharmacist Visit Type: [facility] Follow-up Time Spent: 1-15 min Method of Contact: by telephone Cognitive Ability: good Allergies and Drug intolerance: No Known Allergies Medication Reconciliation Discrepancies (compared to [facility] med list) -n/a Specialty Pharmacy Refill Questionnaire More data exists 04/18/2023 Refill Questionnaire What is the name of the specialty medication you are refilling? Stelara Are you taking any new medications? No Any new medical condition? No Any new allergies? No Any missed doses since your last fill? 1-2 Any new side effects that are bothersome? No What date will you need this fill by? 04/26/2023 Specialty Pharmacy Intervention: Intervention Category (Nature of Intervention): Appropriateness of Therapy Appropriateness of therapy: Ineffective Adherence: Specialty Med Adherence Patient Demonstrates Understanding of Importance of Adherence: Yes Educational Information or Adherence Tools Provided: Yes How many doses does patient have remaining at home?: 0 Patient Reported X Missed Doses in the Last Month: 1 If >0, reason for missed doses: memory Provider-Estimated Medication Adherence Level: 90-100% Adherence Tools Used: directed education, calendar Other Adherence Tool: kit planner Pt understands no changes to current drug regimen were made at the appointment and that [facility] is providing recommendations (summary located at top of note) for provider review and follow up. Ibeth Real RPH 04/18/23 10:42 AM * Ibeth Real RPH - 04/18/2023 10:37 AM EDT Specialty Pharmacy Consultation; Ibeth Real RPH Comprehensive Medication Management (CMM): Specialty Consult, Intervention Melinda Goncalves Diagnosis: psoriasis Contact in person or via telephone: phone Ms. Melinda Goncalves is a 63 y.o. (1960) female who was contacted in regard to specialty medication intervention. Spoke with patient regarding Stelara. Specialty Pharmacy Intervention: Intervention Category (Nature of Intervention): Appropriateness of Therapy Appropriateness of therapy: Ineffective Prescriber accepted response (Prescriber accept Intervention): Accepted Recommendation: Discuss with provider about increasing frequency from every 12 weeks to every 8 weeks due to medication wearing off about 2 weeks prior to each injection. Outcome: Provider accepted recommendation. Will pend a new rx with the updated frequency and work on gettingapproval through insurance. Ibeth Real RPH 04/23/23 12:06 PM documented in this encounter Plan of Treatment Upcoming Encounters Date Type Department Care Team (Late st Contact Info) Description 02/01/2025 2:15 PM EDT Office Visit Dermatology at [address] [address] Regina Rivas MD [facility] DR JO OLIV[place] [address] documented as of this encounter Goals Goal [...] training 3 times a week -can use therReliOn Nutrition - 02/27/22 Lifestyle On track(2021 11:38 [...] psoriasis documented in this encounter Care Teams Ticket Collector Relationship Specialty Start Date End Date Carolynn Wisdom APRN [address] [place] [address] [address] [place] [address] PCP - General Family Medicine 03/08/20 documented as of this encounter
--- OUTSIDE RECORDS SUMMARY | 2024-01-17 18:04 | XMS_ITS | Encounter Summary ---
Author Organization [facility] Address [facility] [place] [address] Care Team Providers Care Lapping Machine Tender Name Role Phone MelodieCarolynn judd CANDE Primary Care Provider Encounter Details Date Type Department Care Team (Late st Contact Info) Description 07/16/2023 Telephone Sleep Center at [facility] [address] [place] [address] Blaire Mcneal Social History Tobacco Use Types Packs/Day Years [...] encounter Miscellaneous Notes * Telephone Encounter - Blaire Mcneal - 07/16/2023 10:39 AM EST Pt declined to reschedule- pt stated she is not using pap and is feeling well Appointment canceled for Melinda Goncalves ([id number]) Visit Type: FOLLOW UP VISIT Date Time Length Provider Department 07/11/2023 2:00 PM 30 mins. [facility] PAULINO [facility] SLEEP MEDICINE Reason for Cancellation: P-NO LONGER NEEDED documented in this encounter Plan of Treatment Upcoming Encounters Date Type Department Care Team (Late st Contact Info) Description 02/01/2025 2:15 PM EDT Office Visit Dermatology at [facility] [address] [place] [address] Regina Rivas MD [facility] [place] [address] documented as of this encounter Goals Goal [...] Note: Continue to work with sleep at [facility] Goal 7 hours of sleep nightly. Recommend consistent sleep and wake times, avoid electronics within one hour of sleep time movement Lifestyle No Michelle Jaquez, SIGNALING PROJECT ENGINEER Note: Exercise goal is 150 -300 min [...] on filedocumented in this encounter Care Teams Lapping Machine Tender Relationship Specialty Start Date End Date Carolynn Wisdom APRN [address] [place] [address] PCP - General Family Medicine 03/08/20 documented as of this encounter
--- OUTSIDE RECORDS SUMMARY | 2024-01-17 18:04 | XMS_ITS | Encounter Summary ---
Author Organization [facility] Address [facility] [place] [address] Care Team Providers Care Metal Flow Coordinator Name Role Phone Carolynn Wisdom APRN Primary Care Provider Encounter Details Date Type Department Care Team (Latest Contact Info) Description 11/09/2022 Travel Social History Tobacco Use Types Packs/Day [...] 2:15 PM EDT Office Visit Dermatology at [facility] [address] [place] [phone] Regina Rivas MD [facility] [address] [place] [address] documented as of this encounter Goals Goal [...] track(2021 11:37 AM EDT) No Michelle Jaquez, IMPORT/EXPORT ANALYST Note: Mindfulness/deep breathing practice to reduce cortisol -try for at least 10 minutes a day sleep Lifestyle On track(2021 11:37 AM EDT) Michelle Tai, CANDE Note: Continue to work with sleep at [facility] Goal 7 hours of sleep nightly. Recommend [...] on filedocumented in this encounter Care Teams Metal Flow Coordinator Relationship Specialty Start Date End Date Carolynn Wisdom APRN [address] [place] [address] PCP - General Family Medicine 03/08/20 documented as of this encounter
--- OUTSIDE RECORDS SUMMARY | 2024-01-17 18:04 | XMS_ITS | Encounter Summary ---
Author [facility] [place] [address] Care Team Providers Care Cash Analyst Name Role Phone Carolynn Wisdom APRN Primary Care Provider Reason for Visit * Reason Comments Medication Management Specialty Refill Management Encounter Details Date Type Department Care Team (Late st Contact Info) Description 11/13/2022 Specialty [place] [address] Oscar Mariano, [facility] Social History Tobacco Use Types Packs/Day Years Used Date Smoking Tobacco: Former Cigarettes 0.3 3 0 12/31/1986 - 12/31/1989 Smokeless Tobacco: Never Alcohol Use Standard Drinks/Week Comments Yes 3 (1 standard drink = 0.6 oz pur e alcohol) [facility] Inpatient Questions Answer Date Recorded Does [...] as of this encounter Progress Notes * Oscar Mariano [facility] - 11/13/2022 5:20 PM EDT Clinical Management Plan: Refill Specialty Pharmacy Consultation; Oscar Mariano [facility] Comprehensive Medication Management (CMM) Melinda Goncalves Ms. Melinda Goncalves is a 62 y.o. [...] a change made to the Care Plan: no If yes, should the medication be held: No Assessment and Recommendations: Medication Management Type of Medication Management: chronic disease management, targeted medication review Referred By: provider Recipient: beneficiary Provider: plan sponsor [facility] Follow-[facility] Time Spent: 1-15 min Method of Contact: by telephone Cognitive Ability: good Allergies and Drug intolerance: No Known Allergies Medication Reconciliation Discrepancies (compared to [facility] med list) -none Specialty Pharmacy Refill Questionnaire 11/13/2022 Refill Questionnaire What is the name of the specialty medication you are refilling? stelara Are you taking any new medications? No Any new medical condition? No Any new allergies? No Any missed doses since your last fill? 1-2 Any new side effects that are bothersome? No What date will you need this fill by? 11/16/2022 Adherence: Specialty Med Adherence Patient Demonstrates Understanding of Importance of Adherence: Yes Educational Information or Adherence Tools Provided: No Patient Reported X Missed Doses in the Last Month: 1 Provider-Estimated Medication Adherence Level: 90-100% Adherence Tools Used: directed education, calendar Adherence Summary: Pt held previous dose after surgery, will resume 11/16 Pt understands no changes to current drug regimen were made at the appointment and that [facility] is providing recommendations (summary located at top of note) for provider review and follow up. Oscar Mariano RPH 11/13/22 5:25 PM documented in this encounter Plan of Treatment Upcoming Encounters Date Type Department Care Team (Late st Contact Info) Description 02/01/2025 2:15 PM EDT Office Visit Dermatology at [place] [address] [place] [phone] Regina Rivas MD [facility] [address] [place] [address] documented as of this encounter Goals Goal [...] Note: Continue to work with sleep at [facility] Goal 7 hours of sleep [...] on filedocumented in this encounter Care Teams Cash Analyst Relationship Specialty Start Date End Date Carolynn Wisdom APRN [address] [place] [address] [address] [facility] [address] [place] [address] PCP - General Family Medicine 03/08/20 documented as of this encounter
--- OUTSIDE RECORDS SUMMARY | 2024-01-17 18:05 | XMS_ITS | Encounter Summary ---
Author Organization [facility] [place] [address] Care Team Providers Care Coffee Shop Aide Name Role Phone Carolynn Wisdom PRODUCT DEMONSTRATOR Primary Care Provider Encounter Details Date Type Department Care Team (Late Contact Info) Description 04/02/2022 Telephone [place] [phone] Anitha Cruz Social History Tobacco Use Types Packs/Day Years Used Date Smoking Tobacco: Former Cigarettes 0.3 3 0 12/31/1986 - 12/31/1989 Smokeless Tobacco: Never Alcohol Use Standard Drinks/Week Comments Yes 3 (1 standard drink = 0.6 oz pur e alcohol) Sex and Gender Information Value Date Recorded Sex Assigned at Not on file Gender Identity Not on file Sexual Orientation Not on file documented as of this encounter Miscellaneous Notes * Telephone Encounter - Anitha Cruz - 04/02/2022 2:07 PM EDTSummary: BARIATRIC - CPAP USE Spoke with Melinda and explained that in order for her to proceed with the bariatric surgery programshe MUST proceed with obtaining the CPAP that was ordered and must provide us with a minimum of 14 day download showing 70% compliance or better. She is on board to proceed and I have connected her to the Sleep Center to get all the information pertaining to where the order was sent and how to contact them to get her equipment. documented in this encounter Plan of Treatment Upcoming Encounters Date Type Department Care Team (Late st Contact Info) Description 02/01/2025 2:15 PM EDT Office Visit Dermatology at [address] [place] [address] Regina Rivas MD [facility] [place] [address] documented as of this encounter Goals Goal [...] Note: Continue to work with sleep at [facility] Goal 7 hours of sleep nightly. Recommend [...] on filedocumented in this encounter Care Teams Coffee Shop Aide Relationship Specialty Start Date End Date Carolynn Wisdom APRN [address] [place] [address] [address] [facility] [place] [address] PCP - General Family Medicine 03/08/20 documented as of this encounter
--- OUTSIDE RECORDS SUMMARY | 2024-01-17 18:05 | XMS_ITS | Encounter Summary ---
Author Organization [facility] [place] [address] Care Team Providers Care Certified Lactation Educator Name Role Phone Artis Carolynn CASTELLON Primary Care Provider Encounter Details Date Type Department Care Team (Late st Contact Info) Description 07/11/2022 2:00 PM EST Office Visit Sleep Center at [facility] [address] [address] Karla Woody APRN [facility] [place] [address] HEATHER on CPAP Social History Tobacco Use Types Packs/Day Years [...] Sign Reading Time Taken Comments Blood Pressure 122/72 07/11/2022 1:39 PM EST Pulse 74 07/11/2022 1:39 PM EST Temperature - - Respiratory Rate - - Oxygen Saturation 97% 07/11/2022 1:39 PM EST Inhaled Oxygen Concentration - - Weight 100.8 kg (222 lb 3.2 oz) 07/11/2022 1:39 PM EST Height 161.3 cm (5' 3.5) 07/11/2022 1:39 PM EST Body Mass Index 38.74 07/11/2022 1:39 PM EST documented in this encounter Progress Notes * Karla Woody, PARACHUTE PACKER - 07/11/2022 2:00 PM EST Sleep Medicine Follow-Up Note CC: Ms. Melinda Goncalves is a 62 y.o. female seen for follow-up of obstructive sleep apnea. HPI: Sleep Study January 2022: 4% KARAN: 8.6 Apnea index: 3.4 Central apnea index: 1.1 Hypopnea with desaturation > or equal to 4% index: 5.2 ??Average SpO2: 92% Minimum SpO2: 81% Weight: 215 lbs Treatment: AutoCPAP Device: RM Pressure: 5-15 cm Pressure Intolerance: no Supplemental oxygen:no Interface/Mask: FFM Difficulty tolerating mask interface: it's OK but needs supplies Chin Strap: no HCC: RR Update: Patient perceived outcome: sleep quality has improved and she has increased daytime energy and alertness on CPAP. She is hoping to have bariatric surgery this year. Humidity: no Dry Mouth/Throat: no Symptoms: Patient-reported last 4 scores: [facility] 01/17/2022 07/11/2022 [facility] Sleep Incomplete 2 (Low Risk) Snoring: Not sure Nocturnal sleep quality improved: yes Daytime symptoms improved (Daytime sleepiness/fatigue): yes Naps: no Involuntary Dozing: rarely Sleepiness or Drowsiness when driving: no Sleep Pattern: Bedtime: 9-10p Position: laterally Rise time: 5:3-6:3a Awakenings: 1-2 times Card Data Download: Date Range: 05/19-07/08/22 Pressure: 5-15 cm Residual AHI: 2.3 95th% Leak: 0.4 Median Leak: 0 Average Usage (Days Used/Hours): 6 hrs 46 min Days of usage: 40/51 % Days used > 4 hours: 75% Current Outpatient Medications: ??? ustekinumab (Stelara) 90 mg/mL subcutaneous injection, Inject 1 mL subcutaneously Every 12 weeks., Disp: 1 mL, Rfl: 1 ??? BLOOD SUGAR DIAGNOSTIC, DISC MISC, by [...] by mouth daily., Disp: , Rfl: ??? BD Ultra-Fine Mini Pen Needle 31 gauge x 3/16 Needle, UES WITH LANTUS ONCE A DAY, Disp: , Rfl: ??? nystatin-triamcinolone (MYCOLOG II) Cream, APPLY TO AFFECTED AREA(S) TWO TIMES A DAY, Disp: , Rfl: ??? clobetasoL (Temovate) 0.05 % Ointment, Apply topically twice a day on weekends, avoid face. (Patient not taking: Reported on 07/11/2022), Disp: 60 g, Rfl: 0 ??? tacrolimus (Protopic) 0.1 % Ointment, Apply to areas of psoriasis twice daily on week (Patient not taking: Reported on 07/11/2022), Disp: 100 g, Rfl: 3 ??? clobetasoL (TEMOVATE) 0.05 % Solution, Apply [...] % Cream, Apply topically., Disp: , Rfl: Active Ambulatory Problems Diagnosis Date Noted ??? Hyperlipidemia 08/08/2021 ??? Inverse psoriasis 08/08/2021 ??? Migraine headache with aura 08/08/2021 ??? Subclinical hypothyroidism 08/08/2021 ??? Transient vision disturbance of left eye 08/08/2021 ??? Type 2 diabetes mellitus 08/08/2021 ??? Class 2 severe obesity due to excess calories with serious comorbidity and body mass index (BMI) of 38.0 to 38.9 in adult 08/08/2021 ??? HEATHER (obstructive sleep apnea) 07/11/2022 Resolved Ambulatory Problems Diagnosis Date Noted ??? No Resolved Ambulatory Problems Past Medical History: Diagnosis Date ??? Hypothyroid ??? Psoriasis HEATHER ROS: Constitutional: Weight change: Has gained 7 lbs since sleep study ENT: Nasal Obstruction: no : Nocturia: no Physical Exam: BP 122/72 Pulse 74 Ht 161.3 cm (5' 3.5) Wt 100.8 kg (222 lb 3.2 oz) SpO2 97% BMI 38.74 kg/m?? General: 62 y.o. female, no distress Chest: respirations even and not labored at rest Skin: No skin irritation Time spent: total time of visit, was 20 minutes, including face to face counseling, chart review and documentation Assessment: Ms. Melinda Goncalves is a 62 y.o. female seen for obstructive sleep apnea. The data download reveals the AHI and leak appear to be well controlled. Patient is doing well with the current pressure and reports improvement, noting benefit with sleep quality, daytime energy and alertness. Her usage is adequate and she meets compliance. Recommendations: Keep autoCPAP 5-15 cm Call DME company for questions on machine, supply replacements, billing, and for confirming compliance met Continue to get PAP supplies at the recommended replacement intervals Driving safety discussed, recommend patient not drive if drowsy, if drowsy while driving, pull overand nap. Follow-up: 1 year or sooner if needed The patient indicates understanding of these issues and agrees with the plan. KARLA WOODY APRN documented in this encounter Plan of Treatment Upcoming Encounters Date Type Department Care Team (Late st Contact Info) Description 02/01/2025 2:15 PM EDT Office Visit Dermatology at [facility] [address] [place] [address] Regina Rivas MD [facility] [place] [address] documented as of this encounter Goals Goal [...] Note: Continue to work with sleep at [facility] Goal 7 hours of sleep nightly. Recommend consistent sleep and wake times, avoid electronics within one hour of sleep time movement Lifestyle No Michelle Jaquez, PARACHUTE PACKER Note: Exercise goal is 150 -300 min a week, prioritize self so you have time to exercise Recommend resistance training 3 times a week -can use the[employer]ands Nutrition - 02/27/22 Lifestyle On track(2021 11:38 AM EDT) No Yessy Jonas, RD Note: Nutrition Goals: Establish consistent meal [...] as of this encounter Visit Diagnoses Diagnosis HEATHER on CPAP Obstructive sleep apnea (adult) (pediatric) documented in this encounter Care Teams Certified Lactation Educator Relationship Specialty Start Date End Date Caroylnn Wisdom APRN [address] [place] [address] PCP - General Family Medicine 03/08/20 documented as of this encounter
--- OUTSIDE RECORDS SUMMARY | 2024-01-17 18:05 | XMS_ITS | Encounter Summary ---
Author Organization [facility] [place] [address] Care Team Providers Care Heating And Ventilation Engineer Name Role Phone Carolynn Wisdom APRN Primary Care Provider Reason for Visit * Reason Onset Date Comments Appointment 04/18/2022 Encounter Details Date Type Department Care Team (Late st Contact Info) Description 04/18/2022 Telephone Weight and Wellness at [facility] [address] [place] [address] Blaire Reddy Appointment Social History Tobacco Use Types Packs/Day Years [...] Miscellaneous Notes * Telephone Encounter - Blaire Reddy - 04/18/2022 10:51 AM EDT Return in about 6 weeks (around 05/29/2022) for zoom, 30 min. (SR) documented in this encounter Plan of Treatment Upcoming Encounters Date Type Department Care Team (Late st Contact Info) Description 02/01/2025 2:15 PM EDT Office Visit Dermatology at [facility] [address] [place] [address] Regina Rivas MD [facility] [place] [address] documented as of this encounter Goals Goal [...] Note: Continue to work with sleep at [facility] Goal 7 hours of sleep nightly. [...] filedocumented in this encounter Care Teams Heating And Ventilation Engineer Relationship Specialty Start Date End Date Carolynn Wisdom APRN [address] [place] [address] PCP - General Family Medicine 03/08/20 documented as of this encounter
--- OUTSIDE RECORDS SUMMARY | 2024-01-17 18:05 | XMS_ITS | Encounter Summary ---
Author Organization Formerly [facility] Address [facility] [place] [address] Care Team Providers Care Area Loss Prevention Manager Name Role Phone Carolynn Wisdom APRN Primary Care Provider Encounter Details Date Type Department Care Team (Late st Contact Info) Description 05/23/2022 12:44 PM EST - 05/23/2022 11:59 PM [facility] Hospital Encounter Mammography/[place] [address] Carolynn Wisdom APRN [address] [place], [place] [id number] Visit for screening mammogram Discharge Disposition: Home [...] Sig Dispensed Refills Start Date End Date clobetasoL (Temovate) 0.05 % OintmentIndications:In verse psoriasis [...] 12 weeks. 1 mL 1 05/01/2022 01/31/2023 Insulin [place], Disposable, 29 gauge Needle by NOT APPLICABLE route. 05/30/2020 07/11/2022 aspirin EC 81 mg Tablet, Delayed Release (E.C.) Take 81 mg by mouth daily. 07/19/2020 10/21/2022 Lantus Solostar U-100 Insulin pen 34 Units. Every evening 05/21/2021 04/2 08/2022 documented as of this encounter Plan of Treatment Upcoming Encounters Date Type Department Care Team (Late st Contact Info) Description 02/01/2025 2:15 PM EDT Office Visit Dermatology at [facility] [address] [address] Regina Rivas MD [facility] [place] [address] documented as of this encounter Goals Goal [...] Note: Continue to work with sleep at [facility] Goal 7 hours of sleep nightly. Recommend [...] MAMMO SCREENING CAD AND KEEGAN BILATERAL Routine 05/23/2022 1:06 PM EST Visit for screening mammogram documented in this encounter Results * Mammo Screening Cad and Keegan Bilateral (05/23/2022 1:06 PM EST) Anatomical Region Laterality Modality Breast Bilateral Mammography Narrative 05/23/2022 4:43 PM EST BILATERAL MAMMOGRAPHY REASON FOR EXAM: Screening TECHNIQUE: CC and MLO views were obtained of each breast using standard 2-D mammography as well as 3-D tomosynthesis. Computer aided detection was used. This is compared with prior images. FINDINGS: There are scattered areas of fibroglandular density. There are no suspicious microcalcifications, masses, or areas of distortion. The pattern is stable. CONCLUSION: No mammographic evidence of malignancy. RECOMMENDATION: Regular screening mammograms starting between age 40 and 50 reduces the risk of from breast cancer. All screening tests have both risks and benefits. These risks and benefits should be assessed for each individual patient through discussion with their provider to determine their preferred breast cancer screening schedule. Women should report any breast changes to a health care provider right away. Some women, because of their family history, a genetic tendency, or other factors, should be screened with annual breast MRI as well as with mammograms. (The number of women who fall into this category is very small). Patients and health care providers should discuss each patient? s history to decide if earlier screening and/or breast MRI are appropriate. Screening should continue as long as a woman is in good health and is expected to live 10 years or longer. Screening mammography may not detect 10-15% of breast cancers. A result letter has been sent to this patient by the [facility]. BIRADS CATEGORY 1: NEGATIVE Electronically signed by: BRENNAN BRIAN MD Carolynn Wisdom APRN IMG MAMMO ORDERABLE S documented in this encounter Visit Diagnoses Diagnosis Visit for screening mammogram Other screening mammogram documented in this encounter Care Teams Area Loss Prevention Manager Relationship Specialty Start Date End Date Carolynn Wisdom APRN [address] [place] [address] PCP - General Family Medicine 03/08/20 documented as of this encounter
--- OUTSIDE RECORDS SUMMARY | 2024-01-17 18:05 | XMS_ITS | Encounter Summary ---
[place] [address] Care Team Providers Care Animal Killer Name Role Phone Carolynn Wisdom APRN Primary Care Provider [phone] Reason for Visit * Reason Comments Prior Authorization Stelara 90mg/ml sosy Encounter Details Date Type Department Care Team (Late st Contact Info) Description 04/03/2022 Specialty [place] [address] Ibeth Bermudez, [facility] Social History Tobacco Use Types Packs/Day [...] of this encounter Progress Notes * Ibeth Roger - 04/03/2022 9:17 AM EDT [facility], Medication Prior Authorization Submission Patient: Melinda Goncalves Patient : 1960 Patient Address: [address] [place] [id number] Phone: [phone] (home) Medication Name: STELARA 90 MG/ML SUBCUTANEOUS SYRINGE Medication ID: [id number] Subscriber Insurance: Subscriber Insurance Comment: RUST (IRX) Phone: Fax: Physician: MAXI MASON Physician Comment: Sent Via: [facility] Oneal: [id number] Ref/Case/PA#: Medication Strength Frequency Requested: INJECT THE CONTENTS OF ONE SYRINGE (90 MG) SUBCUTANEOUSLY AT WEEK 0 & 4 THEN INJECT THE CONTENTS OF ONE SYRINGE (90 MG) SUBCUTANEOUSLY EVERY 12 WEEKS THEREAFTER. Qty/Day Supply: New Start: Renewal 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 Patient Notified: Yes Submission Notes: None Ibeth Roger 04/03/22 9:19 AM * Darnell Wiggins - 04/03/2022 9:17 AM EDT [facility], Prior Authorization Appeal Approval Medication Name: STELARA 90 MG/ML SUBCUTANEOUS SYRINGE Medication ID: Appeal Result: Approved Appeal Decision Date: 04/04/2022 12:28 PM Approved from: 03/09/2022 to 03/09/2023 Reference Number: [id number] Can be filled with: [facility] Fillable at [facility]: Yes Patient Notified of Approval: No Additional Information regarding this Appeal: None For any questions relating to this appeal please reach out directly to your section's specialty pharmacist. Darnell Wiggins 04/04/22 12:29 PM documented in this encounter Plan of Treatment Upcoming Encounters Date Type Department Care Team (Late st Contact Info) Description 02/01/2025 2:15 PM EDT Office Visit Dermatology at [address] [phone] Regina Rivas MD [facility] DR [address] [place] [address] documented as of this encounter Goals Goal [...] Note: Continue to work with sleep at [facility] Goal 7 hours of sleep nightly. Recommend consistent sleep and wake times, avoid electronics within one hour of sleep time movement Lifestyle No Michelle Jaquez, WEB KNITTER Note: Exercise goal is 150 -300 min [...] on filedocumented in this encounter Care Teams Animal Killer Relationship Specialty Start Date End Date Carolynn Wisdom APRN [address] [place] [address] [address] [facility] [address] [place] [address] PCP - General Family Medicine 03/08/20 documented as of this encounter
--- OUTSIDE RECORDS SUMMARY | 2024-01-17 18:05 | XMS_ITS | Encounter Summary ---
Author Organization Formerly [facility] Address [facility] [place] [address] Care Team Providers Care Aerial Advertiser Name Role Phone Carolynn Wisdom VENETIAN BLIND CLEANER AND REPAIRER Primary Care Provider [phone] Encounter Details Date Type Department Care Team (Latest Contact Info) Description 07/31/2022 Travel Social History Tobacco Use Types Packs/Day [...] PM EDT Office Visit Dermatology at [facility] [address] [place] [address] Regina Rivas MD [facility] [place] [address] documented as of this encounter Goals Goal [...] on filedocumented in this encounter Care Teams Aerial Advertiser Relationship Specialty Start Date End Date Carolynn Wisdom APRN [address] [place], [place] [address]Y [facility] [address] [place] [address] PCP - General Family Medicine 03/08/20 documented as of this encounter
--- OUTSIDE RECORDS SUMMARY | 2024-01-17 18:05 | XMS_ITS | Encounter Summary ---
Author Organization [facility] Address [facility] [place] [place] [place] [address] Care Team Providers Care Operating Room Aide Name Role Phone MelodieCarolynn judd CANDE Primary Care Provider Encounter Details Date Type Department Care Team (Latest Contact Info) Description 02/06/2022 11:00 AM EDT TH Visit (TeleHealth) Weight and Wellness at [address] [address] Susan Mohan, PhD [place] [address] Eating disorder, unspecified type Social History Tobacco Use Types Packs/Day Years [...] as of this encounter Progress Notes * Susan Mohan, PhD - 02/06/2022 11:00 AM EDT [facility] PSYCHOLOY FOLLOW UP NOTE [facility] [address] [address] Dept: [phone] 02/06/2022 9:30 AM Melinda Goncalves is a 61 y.o. female who was referred for evaluation and preparation for potential bariatric surgery.Melinda was previously evaluated by Dr. Peterson on 11/29/2021, and concerns were raised about bariatric surgery readiness. Melinda was seen for 60 minutes. Patient was alone, and was seen Telehealth. Melinda Goncalves gave permission for and was seen for today's appointment with a Telehealth visit. During this visit they were [place] in [place]. Melinda Goncalves is aware that for any urgent matter they can call [phone].. RECOMMENDATION BASED ON PSYCHOLOGICAL EVALUATION YELLOW - Based on the information gathered during this assessment, Melinda Goncalves would benefit from additional health behavior change before she is ready to proceed with surgery. Specifically, Melinda would benefit from the following to assist with preparing for bariatric surgery: ?? Continue engaging in health promoting behaviors ?? Would benefit from reconnecting with RD re: food choices ?? Stop skipping meals - use the same strategy that has helped you drink water throughout the day to eating ?? Generate a list of other activities you can do to reward yourself other than eating Continue behavioral changes, especially: ?? -Eating slowly, taking 20-30 min to complete a meal. Set aside plenty of time for the meal, takesmaller bites (children???s utensils can help with this), leave reminders for yourself (e.g., notes, signs) in the places you eat ?? - eating and drinking by 30 minutes. Don???t bring a drink to the table, decrease amount over time (e.g., ?? glass, then ?? glass, then ?? glass, etc), avoid really dry foods/try to eat moist foods, set a timer (can taper up gradually), leave notes for yourself (on the table, refrigerator, and cabinet doors tend to be good places), minimize salty foods, chew food more to produce moresaliva ?? -Increasing exercise. Park further away, take steps instead of elevators, swimming is great for those with pain/difficulty walking, walking is cheap and easy, get an exercise partner (family, friend, or pet will do), listen to music while you exercise, try different types of exercise to find oneyou like (e.g., walking, riding bike, going to gym, swimming, exercise videos), get on a regular exercise schedule, do chair exercises for upper body if knees/legs/back are problems ?? -Eating three meals, and two snacks per day. Set a regular schedule to the extent possible, use liquid meals as a substitute if you don???t like heavy food in the morning, talk with boss/coworkers/family about the need for regular eating times, talk with the dieticians about planning snacks throughout the day The follow up plan is as follows: 6 wk f/u SUMMARY The decision noted above is based on the followin. Melinda has made significant weight loss attempts in the past, but without lasting success. 2. Melinda experienced some mental health problems in the past year. 3. Melinda experienced little mental health problems earlier in life. 4. Melinda is engaging in problematic eating behaviors - improving!. 5. Melinda is knowledgeable about the surgery and related risks. 6. Melinda's motivation for surgery is: good 7. Melinda's social support is: good 8. Melinda is aware of expected surgery weight loss with surgery. 9. Melinda is aware of the habit changes that will need to occur and is actively engaged in changingthose now. 10. Melinda does not have a history of adherence/attendance issues. DIAGNOSIS Eating Disorder Not Otherwise Specified The above assessment and plan was based on the following information obtained during the appointment. Please note section in blue indicates updated information from the previous evaluation: WEIGHT Initial Weight: 223lbs Weight at previous evaluation: 212 lbs Current Weight as of 02/06/2022: 214 lbs Weight changes since evaluation: has been stable PROBLEM EATING BEHAVIORS History of nighttime eating (i.e., skipping daytime meals and eating large amounts at dinner or waking at night to eat): yes - dinner is usually biggest meal of the day, RD has encouraged her to start spacing meals out better earlier in the day - feeling very hungry when she gets home. She reportedrecently trying to take snacks with her to work. If h/o nighttime eating, last episode: Ongoing ?? History of grazing (i.e., continuously eating small snacks): yes If h/o grazing, last episode: Ongoing, see below - sugary foods ?? History of mindless/stress eating (i.e., eating for emotional reasons rather than hunger): yes - she reported frequently buying sugary snacks like a small bag of gumdrops or munching on Twizzlers сергей long. She also reported most of her eating is emotional eating - comfort food, it's how she unwinds after a long day, choices are also based on emotions (e.g., mac n cheese) and this has become habit. If h/o stress eating, last episode: Ongoing, almost every day but decreased. Does not feel very outof control - A1Cs have decreased. ?? History of over eating (i.e., eating to the point of being uncomfortably full): yes If h/o over eating, last episode: Last week, stated this is infrequent. 02/06/2022: History of nighttime eating (i.e., skipping daytime meals and eating large amounts at dinner or waking at night to eat): yes If h/o nighttime eating, last episode: improving, continues to occur twice/wk ; bringing food to eat at 10am, 12-1 eat more substantial meal, snack at 3pm History of grazing (i.e., continuously eating small snacks): yes If h/o grazing, last episode: Not since she has been more intentional about bringing food with her History of mindless/stress eating (i.e., eating for emotional reasons rather than hunger): yes If h/o stress eating, last episode: Improving - Melinda noted that being aware of her eating has helped. No longer has many sugary snacks available to her - no longer keeping in the home/work/car. Continues to be a reward History of over eating (i.e., eating to the point of being uncomfortably full): yes If h/o stress eating, last episode: Not since previous eval POST SURGERY EATING HABIT CHANGES AND READINESS 02/06/2022: ??? Eating slowly, taking 20-30min to complete a meal: Aware of the need and practicing about 50% of the time and has been practicing at this rate for about 1 month(s). ??? eating and drinking by 30 minutes: Aware of the need and practicing about 50% of the time and has been practicing at this rate for about 2 week(s). ??? Eating smaller quantities: Aware of the need and practicing about 95% of the time and has been practicing at this rate for about 2 month(s). ??? Protein at each meal (should be eating it first): Aware of the need and practicing about 75% of the time and has been practicing at this rate for about 2-3 month(s). ??? Sipping 6-8 8oz-glasses of water slowly: Aware of the need and practicing about 100% of the time and has been practicing at this rate for about 2 month(s). Other beverages: crystal light ??? Following a consistent meal pattern: Aware of the need and practicing about 60% of the time and has been practicing at this rate for about 1 month(s). ??? Regular exercise: Aware of the need of regular exercise and not regularly - job can be active - takes stairs at work,etc... Will be starting yoga this week. Current implementation of habit changes: fair CURRENT SOCIAL SUPPORT NETWORK 02/06/2022: Primary support comes from adult child(robb), community support and parent(s) Quality of EMOTIONAL support: good Quality of TASK support: good - recently hired someone to clean her home Support network's reaction to bariatric surgery: I'm a very private person and have not shared this with many people - plan to tell others that made a lifestyle change that is working for her. Identified post-surgery caregiver: adult child(robb) MENTAL HEALTH UPDATE: Melinda reported that she is ok - I work a lot, continues to work through moments of depression - I don't have a personal life because I work all the time. Melinda reported that she wants to work towards having more of a personal life - want to connect with a therapist. Has been taking steps to decrease the role of work in her life. ADHERENCE AND ATTENDANCE 02/06/2022: Sleep Apnea? Awaiting home sleep study Medication adherence - how many days in the past 7 did you miss any of your medications?: 0 The assessment and plan for Melinda Goncalves are detailed at the beginning of this report. documented in this encounter Plan of Treatment Upcoming Encounters Date Type Department Care Team (Late st Contact Info) Description 02/01/2025 2:15 PM EDT Office Visit Dermatology at [facility] [address] [place] [address] Regina Rivas MD [facility] [place] [address] documented as of this encounter Goals Goal [...] Lifestyle On track(2021 11:38 AM EDT) No Sumi, Yessy L, RD Note: Nutrition Goals: Establish consistent meal [...] as of this encounter Visit Diagnoses Diagnosis Eating disorder, unspecified type documented in this encounter Care Teams Operating Room Aide Relationship Specialty Start Date End Date Carolynn Wisdom APRN [address] [place] [address] PCP - General Family Medicine 03/08/20 documented as of this encounter
--- OUTSIDE RECORDS SUMMARY | 2024-01-17 18:05 | XMS_ITS | Encounter Summary ---
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 post-op success and long-term weight loss: ??? Eat 3 meals daily, spaced about 4-6 hours apart. i. Have protein first at all meals/snacks ??? Take your time when eating meals, at least 20-30 minutes per meal. ??? Avoid soda and limit caffeine consumption. Stop caffeine 2 weeks prior to surgery. ??? Sip 48-64 oz hydrating fluid daily between meals and avoid drinking with meals. ??? Use smaller plates/bowls/utensils for meals and eat smaller portions. ??? Plan meals 1 wk in advance and shop with a list. 2) Start to keep a food journal particularly of frequently eaten food/meals. Consider [employer]. 3) Consider ongoing counseling 4) Encouraged exercise as tolerated. 5) We reviewed the No Weight Gain Policy. 6) Patient to attend a pre-op educational class prior to surgery. Information given to patient: 1. [facility] [place] [facility] Education Handbook, a 102 page document (revision September 2011) which contains extensive information regarding pre and post- operative nutrition guidelines including: preop diet, Diet stages I-IV, hydration recommendations, protein guidelines, dumping syndrome, food intoleranc es, vitamin and mineral supplementation as well as a list of books and online bariatric resources. * Ronda Mckeon MD - 07/31/2022 1:00 PM EST Attending addendum: I have seen and examined the patient jointly with Marjorie Holman APRN. In brief, this is a 62 y.o. year old female with Body mass index is 37.76 kg/m??., presenting for evaluation prior to bariatric surgery. I agree with the events, physical exam findings and assessment/plan as outlined. Past surgical history includes open appendectomy. She is on sterala for psoriasis and last had an injection on 07/10/22. Will need to plan for surgery on week 13 of her stelara cycle. She is a good candidate for a gastric bypass. Encouraged her to work on tracking her meals per RD suggestion and to get established with a therapist prior to surgery. Ronda Mckeon MD documented in this encounter Plan of Treatment Upcoming Encounters Date Type Department Care Team (Late st Contact Info) Description 02/01/2025 2:15 PM EDT Office Visit Dermatology at [facility] [address] [place] [address] Regina Rivas MD [facility] [place] [address] Scheduled Orders Name Type Priority Associated Diagnoses Orde r Schedule Comprehensive metabolic panel (non-fasting) Lab Routine Class 2 severe obesity due to excess calories with serious comorbidity and body mass index (BMI) of 38.0 to 38.9 in adult Preop testing Type 2 diabetes mellitus without complication, with long-term current use of insulin Expected: 07/31/2022 (Approximate), Expires: 11/28/2022 Ferritin Lab Routine Class 2 severe obesity due to excess calories with serious comorbidity and body mass index (BMI) of 38.0 to 38.9 in adult Preop testing Type 2 diabetes mellitus without complication, with long-term current use of insulin Expected: 07/31/2022 (Approximate), Expires: 11/28/2022 Folate, serum Lab Routine Class 2 severe obesity due to excess calories with serious comorbidity and body mass index (BMI) of 38.0 to 38.9 in adult Preop testing Type 2 diabetes mellitus without complication, with long-term current use of insulin Expected: 07/31/2022 (Approximate), Expires: 11/28/2022 Iron and TIBC Lab Routine Class 2 severe obesity due to excess calories with serious comorbidity and body mass index (BMI) of 38.0 to 38.9 in adult Preop testing Type 2 diabetes mellitus without complication, with long-term current use of insulin Expected: 07/31/2022 (Approximate), Expires: 11/28/2022 Hemogram Lab Routine Class 2 severe obesity due to excess calories with serious comorbidity and body mass index (BMI) of 38.0 to 38.9 in adult Preop testing Type 2 diabetes mellitus without complication, with long-term current use of insulin Expected: 07/31/2022 (Approximate), Expires: 11/28/2022 PTH Lab Routine Class 2 severe obesity due to excess calories with serious comorbidity and body mass index (BMI) of 38.0 to 38.9 in adult Preop testing Type 2 diabetes mellitus without complication, with long-term current use of insulin Expected: 07/31/2022 (Approximate), Expires: 11/28/2022 Vitamin B1, whole blood Lab Routine Class 2 severe obesity due to excess calories with serious comorbidity and body mass index (BMI) of 38.0 to 38.9 in adult Preop testing Type 2 diabetes mellitus without complication, with long-term current use of insulin Expected: 07/31/2022 (Approximate), Expires: 11/28/2022 Vitamin B12 Lab Routine Class 2 severe obesity due to excess calories with serious comorbidity and body mass index (BMI) of 38.0 to 38.9 in adult Preop testing Type 2 diabetes mellitus without complication, with long-term current use of insulin Expected: 07/31/2022 (Approximate), Expires: 11/28/2022 Vitamin D, 25-Hydroxy Lab Routine Class 2 severe obesity due to excess calories with serious comorbidity and body mass index (BMI) of 38.0 to 38.9 in adult Preop testing Type 2 diabetes mellitus without complication, with long-term current use of insulin Expected: 07/31/2022 (Approximate), Expires: 11/28/2022 documented as of this encounter Goals Goal [...] Note: Continue to work with sleep at [facility] Goal 7 hours of [...] as of this encounter Visit Diagnoses Diagnosis Class 2 severe obesity due to excess calories with serious comorbidity and body mass index (BMI) of 38.0 to 38.9 in adult Preop testing Preoperative examination, unspecified Type 2 diabetes mellitus without complication, with long-term current use of insulin HEATHER (obstructive sleep apnea) Obstructive sleep apnea (adult) (pediatric) documented in this encounter Care Teams Granite Setter Relationship Specialty Start Date End Date Carolynn Wisdom APRN [address] [place] [address] PCP - General Family Medicine 03/08/20 documented as of this encounter
--- OUTSIDE RECORDS SUMMARY | 2024-01-17 18:05 | XMS_ITS | Encounter Summary ---
Author Organization [facility] [place] [address] Care Team Providers Care Corn Shucker Name Role Phone Carolynn Wisdom PARACHUTE CROWN SEWER Primary Care Provider Reason for Visit * Reason Comments Prior Authorization Stelara 90mg/ml Syri nges Encounter Details Date Type Department Care Team (Late st Contact Info) Description 03/09/2022 Specialty [place] [address] Olga Perez, ENGRAVER PICTURE Social History Tobacco Use Types Packs/Day Years [...] as of this encounter Progress Notes * Olga Perez - 03/09/2022 4:26 PM EDT [facility], Medication Prior Authorization Submission Patient: Melinda Goncalves Patient : 1960 Patient Address: [facility] [address] Phone: [phone] (home) Medication Name: STELARA 90 MG/ML SUBCUTANEOUS SYRINGE Medication ID: [id number] Subscriber Insurance: Unable to find Subscriber Insurance Comment: [facility](IRX) Fax: Physician: MAXI MASON Physician Comment: Sent Via: [facility] Oneal: [id number] Ref/Case/PA#: Medication Strength Frequency Requested: Stelara 90mg/ml, Inject 1ml subcutaneously every 10 weeks Qty/Day Supply: New Start: Change in Dose 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 Patient Notified: No Submission Notes: None Olga Perez 03/09/22 4:34 PM * Olga Perez - 03/09/2022 4:26 PM EDT [facility], Prior Authorization Denial Medication Name: STELARA 90 MG/ML SUBCUTANEOUS SYRINGE Medication ID: [id number] Case/Reference # : [id number] Denial Summary: PATIENT'S WEIGHT MUST BE MORE THAN 100KG (220LBS). Patient Notified of Denial: No Additional Information from insurance carrier. Please see below: None For any questions relating to this denial please reach out directly to your section's specialty pharmacist, or the specialty pharmacy team at [facility] Olga Perez 03/12/22 3:48 PM documented in this encounter Plan of Treatment Upcoming Encounters Date Type Department Care Team (Late st Contact Info) Description 02/01/2025 2:15 PM EDT Office Visit Dermatology at [address] [address] Regina Rivas MD [facility] [address] [place] [address] documented as of this encounter Goals Goal [...] to work with sleep at [facility] Goal 7 hours of sleep nightly. Recommend consistent sleep and wake times, avoid electronics within one hour of sleep time movement Lifestyle No Michelle Jaquez, PARACHUTE CROWN SEWER Note: Exercise goal is 150 -300 min [...] on filedocumented in this encounter Care Teams Corn Shucker Relationship Specialty Start Date End Date Carolynn Wisdom APRN [address] [place] [address] [address] [place] [address] PCP - General Family Medicine 03/08/20 documented as of this encounter
--- OUTSIDE RECORDS SUMMARY | 2024-01-17 18:05 | XMS_ITS | Encounter Summary ---
Author Organization [facility] [place] [address] Care Team Providers Care Soft Work Wrapper Examiner Name Role Phone Carolynn Wisdom APRN Primary Care Provider Reason for Visit * Reason Comments Specialty Refill Management Encounter Details Date Type Department Care Team (Late st Contact Info) Description 01/09/2022 Specialty [place] [address] Geetha Boss, JOSE Social History Tobacco Use Types Packs/Day Years Used Date Smoking Tobacco: Former Smokeless Tobacco: Never Sex and Gender Information Value Date Recorded Sex Assigned at Not on file Gender Identity Not on file Sexual Orientation Not on file documented as of this encounter Progress Notes * Geetha Boss CPHT - 01/09/2022 3:14 PM EDT Clinical Management Plan: Refill Specialty Pharmacy Consultation; Geetha Boss CPHT Comprehensive Medication Management (CMM) Melinda Areli Sacha Ms. Melinda Goncalves is a 61 y.o. (1960) female who was contacted in [...] change made to the Care Plan: No Allergies and Drug intolerance: No Known Allergies Medication Reconciliation Discrepancies (compared to [facility] med list) No Specialty Pharmacy Refill Questionnaire Refill Questionnaire 01/09/2022 What is the name of the specialty medication you are refilling? Stelara 90mg/ml SOSY Are you taking any new medications? No Any new medical condition? No Any new allergies? No Any new side effects that are bothersome? No Please explain - What date will you need this fill by? 01/16/2022 Adherence: Any missed doses? No Patient understands no changes to current drug regimen were made. Geetha Boss CPHT 01/09/22 3:15 PM documented in this encounter Plan of Treatment Upcoming Encounters Date Type Department Care Team (Late st Contact Info) Description 02/01/2025 2:15 PM EDT Office Visit Dermatology at [facility] [address] [place] [address] Regina Rivas MD [facility] [place] [address] documented as of this encounter Goals Goal [...] on filedocumented in this encounter Care Teams Soft Work Wrapper Examiner Relationship Specialty Start Date End Date Carolynn Wisdom APRN [address] [place] [address] PCP - General Family Medicine 03/08/20 documented as of this encounter
--- OUTSIDE RECORDS SUMMARY | 2024-01-17 18:05 | XMS_ITS | Encounter Summary ---
Author Organization [facility] Address [facility] [place] [address] Care Team Providers Care Sustainment Logistics Analyst Name Role Phone Carolynn Wisdom ELECTRICIAN TECHNICIAN Primary Care Provider Encounter Details Date Type Department Care Team (Latest Contact Info) Description 07/11/2022 Travel Social History Tobacco Use Types Packs/Day [...] 2:15 PM EDT Office Visit Dermatology at [facility] [address] [place] [address] Regina Rivas MD [facility] [address] [place] [address] documented as of this encounter Goals Goal [...] Note: Continue to work with sleep at [facility] Goal 7 hours of sleep nightly. Recommend [...] on filedocumented in this encounter Care Teams Sustainment Logistics Analyst Relationship Specialty Start Date End Date Carolynn Wisdom APRN [address] [place], [place] [address]Y [facility] [address] [place] [address] PCP - General Family Medicine 03/08/20 documented as of this encounter
--- OUTSIDE RECORDS SUMMARY | 2024-01-17 18:05 | XMS_ITS | Encounter Summary ---
Author Organization [facility] Address [facility] [place] [address] Care Team Providers Care Retail Team Leader Name Role Phone Carolynn Wisdom APRN Primary Care Provider Encounter Details Date Type Department Care Team (Late st Contact Info) Description 05/01/2022 Refill Dermatology at [facility] [address] [place] [address] Lisa Vasquez MD [facility] [address] [place] [address] Social History Tobacco Use Types Packs/Day Years [...] 2:15 PM EDT Office Visit Dermatology at [facility] [address] [place] [address] Regina Rivas MD [facility] [address] [place] [address] documented as of this encounter Goals Goal [...] on track(2021 11:37 AM EDT) Michelle Tai, INHALATION THERAPY AIDES TEACHER Note: Mindfulness/deep breathing practice to reduce cortisol -try for at least 10 minutes a day sleep Lifestyle On track(2021 11:37 AM EDT) Michelle Tai, CANDE Note: Continue to work with sleep at [facility] Goal 7 hours of sleep [...] on filedocumented in this encounter Care Teams Retail Team Leader Relationship Specialty Start Date End Date Carolynn Wisdom APRN [address] [place] [address] PCP - General Family Medicine 03/08/20 documented as of this encounter
--- OUTSIDE RECORDS SUMMARY | 2024-01-17 18:05 | XMS_ITS | Encounter Summary ---
Author Organization [facility] [place] [address] Care Team Providers Care Improvement Nurse Name Role Phone Carolynn Wisdom STEAM PRESSER Primary Care Provider Encounter Details Date Type Department Care Team (Late st Contact Info) Description 03/21/2022 Telephone [place] [address] Anitha Cruz Social History Tobacco Use Types [...] * Telephone Encounter - Anitha Cruz - 03/21/2022 2:41 PM EDT Returned call to Melinda from message left - I had her sleep study reviewed by Dr. Smith and based on the length of time she desats into the 80's she will need to start cpap therapy and will have to be placed on the cpap immediately following bariatric surgery. If she chooses to not treat her sleep apnea she will not be a surgical candidate with this program. This is a safety reason and elective surgery. documented in this encounter Plan of Treatment Upcoming Encounters Date Type Department Care Team (Late st Contact Info) Description 02/01/2025 2:15 PM EDT Office Visit Dermatology at [address] [place] [address] Regina Rivas MD [facility] [place] [address] documented as of this encounter Goals Goal [...] Continue to work with sleep at [facility] Goal 7 hours of sleep nightly. [...] on filedocumented in this encounter Care Teams Improvement Nurse Relationship Specialty Start Date End Date Carolynn Wisdom APRN [address] [place] [address] [address] [facility] [address] [place] [address] PCP - General Family Medicine 03/08/20 documented as of this encounter
--- OUTSIDE RECORDS SUMMARY | 2024-01-17 18:05 | XMS_ITS | Encounter Summary ---
Author Organization [facility] Address [facility] [address] [address] Care Team Providers Care Cold Roll Packer Sheet Iron Name Role Phone MelodieCarolynn judd CANDE Primary Care Provider [phone] Reason for Visit * Diagnostic Test (Routine) - Closed Specialty Diagnoses / Procedures Referred By Bay mckeon Referred To Contact Sleep Center Diagnoses Snoring Obesity, unspecified classification, unspecified obesity type, unspecified whether serious comorbidity present Type 2 diabetes mellitus with other specified complication, unspecified whether skilled nursing insulin use Procedures Home Sleep Study Karla Woody APRN [facility] [place] [address] [facility] Sleep Medicine [address] [place] [address] Referral ID Status Reason Start Date Expiration Date V isits Requested Visits Authorized [id number] Closed Specialty Service Requested 01/19/2022 03/19/2022 1 1 Encounter Details Date Type Department Care Team (Late st Contact Info) Description 02/15/2022 3:00 PM EDT Procedure visit Sleep Center at [facility] [address] [place] [address] Bety Ge MD [facility] [place] [address] HEATHER (obstructive sleep apnea) Social History Tobacco [...] as of this encounter Progress Notes * Bety Ge MD - 02/15/2022 3:00 PM EDT Images from the original note were not included. HOME SLEEP APNEA TEST RESULTS Home sleep testing performed with a 4 channel Apnea Link Plus Monitor, recording respiratory effort, airflow, oxygen saturation and heart rate. DOS: 02/15/22 Total recording time: 552 min 4% KARAN: 8.6 Apnea index: 3.4 Central apnea index: 1.1 Hypopnea with desaturation > or equal to 4% index: 5.2 Average SpO2: 92% Minimum SpO2: 81% Average heart rate: 61 bpm Assessment: Home sleep testing demonstrates evidence of obstructive sleep apnea. This was overall in at least the mild range of severity with a 4% KARAN of 8.6. Home testing however, often underestimates the burden of obstructive sleep apnea. Given study findings, would recommend trial of treatment with CPAP. Study results and recommendations relayed via [facility]. Recommendations: autoPAP 5-15cm F/U with Karla Woody APRN after initiating CPAP [facility] HOME SLEEP APNEA TEST REPORT Patient Name: Melinda Goncalves Study Date: 02/15/2022 Age & Sex: 62 y.o. Female Height: 5'3.5 Date of : 1960 Weight: 215 BMI: 37.5 Referring Prov.: Scoring Tech: ROSELIA HAQUE Sleep Fellow: Sleep Specialist: BETY GE M.D. General Test Details Type III home sleep apnea testing was performed utilizing nasal pressure, single thoracoabdominal movement, heart rate, and oxygen saturation according to established AASM guidelines. Recording Start Time: 20:27:02 Monitoring Start Time: :27:02 Recording End Time: :39:02 Monitoring End Time: :39:02 Total Recording Time (TRT): 552.0 minutes Monitoring Time (MT): 552.0 minutes Respiratory Details Respiratory Event Total Count Index (events/hr) Obstructive apnea 18 2.0 Mixed apnea 3 0.3 Central apnea 10 1.1 Sum of all apnea types 31 3.4 Hypopneas without associated desaturation 2 0.2 Hypopneas with desaturation ?4% (CMS) 48 5.2 4% Respiratory Event Index (4%KARAN): 8.6 *Includes the sum of all apneas and hypopneas (assoc. with desaturation of ?4%) per hour of monitoring. 4% AHI (CMS): 8.6 *Includes the sum of all apneas and hypopneas (assoc. with desaturation of ?4%) per hour of monitoring. Ovi-Tay Breathin.0% of total monitoring time Minimum SpO2: 81% Average SpO2 (during TRT): 92% SpO2 ? X%: Total Time ?90% 22.7 min ?89% 8.7 min ?88% 3.5 min SpO2 Ranges: Total Time 90%-99% 493.2 min 80%-90% 8.7 min 70%-80% 0.0 min 60%-70% 0.0 min 0%-60% 0.0 min Cardiac Details Minimum Heart Rate 50 bpm Maximum Heart Rate 92 bpm Average Heart Rate 61 bpm Graphs Time Scale Respiratory Event Graph SpO2 Trend documented in this encounter Plan of Treatment Upcoming Encounters Date Type Department Care Team (Late st Contact Info) Description 02/01/2025 2:15 PM EDT Office Visit Dermatology at [facility] [address] [place] [address] Regina Rivas MD [facility] [place] [address] documented as of this encounter Goals Goal [...] of this encounter Visit Diagnoses Diagnosis HEATHER (obstructive sleep apnea) Obstructive sleep apnea (adult) (pediatric) documented in this encounter Care Teams Cold Roll Packer Sheet Iron Relationship Specialty Start Date End Date Carolynn Wisdom APRN [address] [place] [address] PCP - General Family Medicine 03/08/20 documented as of this encounter
--- OUTSIDE RECORDS SUMMARY | 2024-01-17 18:05 | XMS_ITS | Encounter Summary ---
Author Organization [facility] [place] [address] Care Team Providers Care Fitness Sales Associate Name Role Phone MelodieCarolynn judd CANDE Primary Care Provider [phone] Encounter Details Date Type Department Care Team (Late st Contact Info) Description 03/06/2022 Orders Only Sleep Center at [facility] [address] [place] [phone] Karla Woody APRN [facility] [place] [address] HEATHER (obstructive sleep apnea) Social History Tobacco [...] 2:15 PM EDT Office Visit Dermatology at [facility] [address] [place] [address] Regina Rivas MD [facility] [address] [place] [address] documented as of this encounter Goals Goal [...] Note: Continue to work with sleep at [facility] Goal 7 hours of sleep nightly. Recommend [...] (pediatric) documented in this encounter Care Teams Fitness Sales Associate Relationship Specialty Start Date End Date Carolynn Wisdom APRN [address] [place] [address] PCP - General Family Medicine 03/08/20 documented as of this encounter
--- OUTSIDE RECORDS SUMMARY | 2024-01-17 18:05 | XMS_ITS | Encounter Summary ---
Author Organization [facility] Address [facility] [place] [address] Care Team Providers Care Roller Painter Name Role Phone MelodieCarolynn judd CANDE Primary Care Provider Encounter Details Date Type Department Care Team (Latest Contact Info) Description 04/17/2022 9:00 AM EDT TH Visit (TeleHealth) Weight and Wellness at [address] [address] Susan Mohan, PhD [facility] [place] [address] Eating disorder, unspecified type Social History Tobacco [...] Progress Notes * Susan Mohan, PhD - 04/17/2022 9:00 AM EDT [facility] PSYCHOLOY FOLLOW UP NOTE N JO [facility] AT [address] [address] Dept: [phone] 04/17/2022 9:08 AM Melinda Beardcyril is a 62 y.o. female who was referred for evaluation and preparation for potential bariatric surgery.Melinda was previously evaluated and concerns were raised about bariatric surgery readiness. Melinda was seen for 30 minutes. Patient was alone, and was seen Telehealth. Melinda Goncalves gave permission for and was seen for today's appointment with a Telehealth visit. During this visit they were located at home in [place]. Melinda Goncalves is aware that for any urgent matter they can call [phone].. RECOMMENDATION BASED ON PSYCHOLOGICAL EVALUATION YELLOW - Based on the information gathered during this assessment, Melinda Goncalves would benefit from additional health behavior change before she is ready to proceed with surgery. Specifically, Melinda would benefit from the following to assist with preparing for bariatric surgery: ?? Continue engaging in health promoting behaviors ?? Seek psychological counseling ?? Re-engage in healthful eating behaviors and exercise The follow up plan is as follows: Discussed next steps and the important of getting back on track behaviorally. Also planned for Melinda to seek longer-term psychotherapy. Send Melinda information on habit changes and informed Melinda that she can reach out in the future for individual therapy if she needs. Will plan to see Melinda in 6 wks to see how she has progressed with next steps. DIAGNOSIS Eating Disorder Not Otherwise Specified The above assessment and plan was based on the following information obtained during the appointment. Please note section in blue indicates updated information from the previous evaluation: MENTAL HEALTH UPDATE: Melinda reported that although she hates the idea of using a CPAP machine, she is willing to use it in honor of having bariatric surgery so she can decrease her reliance on medications to address her obesity. Melinda reported that she has been gaining weight as she has gotten off track with her health behavior changes - increasing good intake, making less health promoting food changes. Followed up on the plan for Melinda to connect with a mental health provider - which she reported that she forgotto do. Shared information about the role of thoughts and feelings in behavior change and the importance of being willing to accept discomfort in honor of long-term health improvement. The assessment and plan for Melinda Goncalves are detailed at the beginning of this report. documented in this encounter Plan of Treatment Upcoming Encounters Date Type Department Care Team (Late st Contact Info) Description 02/01/2025 2:15 PM EDT Office Visit Dermatology at [facility] [address] [place] [phone] Regina Rivas MD [facility] [place] [address] documented as of this encounter Goals Goal [...] type documented in this encounter Care Teams Roller Painter Relationship Specialty Start Date End Date Artis CANDE Pradhan [address] [place] [address] PCP - General Family Medicine 03/08/20 documented as of this encounter
--- OUTSIDE RECORDS SUMMARY | 2024-01-17 18:05 | XMS_ITS | Encounter Summary ---
Author Organization [facility] Address [facility] [place] [address] Care Team Providers Care Manager Talent Management Name Role Phone Carolynn Wisdom FEED MILL OPERATOR Primary Care Provider Encounter Details Date Type Department Care Team (Latest Contact Info) Description 05/23/2022 Travel Social History Tobacco Use Types Packs/Day [...] at [facility] [address] [place] [address] Regina Rivas MD [facility] [address] [place] [address] documented as of this encounter Goals Goal [...] on filedocumented in this encounter Care Teams Manager Talent Management Relationship Specialty Start Date End Date Carolynn Wisdom APRN [address] [place], [place] [address]Y [facility] [address] [place] [address] PCP - General Family Medicine 03/08/20 documented as of this encounter
--- OUTSIDE RECORDS SUMMARY | 2024-01-17 18:05 | XMS_ITS | Encounter Summary ---
[place] [address] Care Team Providers Care Manager Statistics Name Role Phone Carolynn Wisdom [employer] LEAD[employer] Primary Care Provider Reason for Visit * Reason Onset Date Comments Appointment 01/08/2022 Encounter Details Date Type Department Care Team (Late st Contact Info) Description 01/08/2022 Telephone Weight and Wellness at [address] [phone] Tanya Rush V Appointment Social History Tobacco Use Types Packs/Day Years Used Date Smoking Tobacco: Former Smokeless Tobacco: Never Sex and Gender Information Value Date Recorded Sex Assigned at Not on file Gender Identity Not on file Sexual Orientation Not on file documented as of this encounter Miscellaneous Notes * Telephone Encounter - Tanya Rush V - 01/12/2022 8:56 AM EDT Return in about 3 weeks * Telephone Encounter - Tanya Rush V - 01/08/2022 3:14 PM EDT Return in about 1 month (around 01/20/2022) for Hilary OLIVA documented in this encounter Plan of Treatment Upcoming Encounters Date Type Department Care Team (Late st Contact Info) Description 02/01/2025 2:15 PM EDT Office Visit Dermatology at [facility] [address] [place] [phone] Regina Rivas MD [facility] [place] [address] documented as of this encounter Goals Goal [...] Note: Continue to work with sleep at [facility] Goal 7 hours of sleep nightly. [...] filedocumented in this encounter Care Teams Manager Statistics Relationship Specialty Start Date End Date Artis CANDE Pradhan [address] [place] [address] PCP - General Family Medicine 03/08/20 documented as of this encounter
--- OUTSIDE RECORDS SUMMARY | 2024-01-17 18:05 | XMS_ITS | Encounter Summary ---
Author Organization [facility] [place] [address] Care Team Providers Care Wet Machine Operator Name Role Phone ReginaldoCarolynn velazquez CANDE Primary Care Provider Encounter Details Date Type Department Care Team (Late st Contact Info) Description 02/27/2022 12:00 PM EDT TH Visit (TeleHealth) Weight and Wellness at [address] [address] Adult BMI 37.0-37.9 kg/sq m Social History Tobacco Use Types Packs/Day Years [...] on file documented as of this encounter Patient Instructions * Patient Instructions* Yessy Jonas RD - 02/27/2022 12:00 PM EDT Nutrition Goals: Establish consistent meal routine - 9/10am breakfast, 1pm lunch, 6/7pm dinner; Choose protein firstat every eating event; avoid skipping meals Continue [...] daily; add resistance exercise to routine - exercisebands, yoga, etc. documented in this encounter Progress Notes * Yessy Jonas RD - 02/27/2022 12:00 PM EDT Nutrition Intervention for Weight Management Initial RD visit with TAWANNA Jiménez 1960 Telehealth / telephone visit conducted while patient was at home at the following address: [address] [place] [phone] Weight Today: Wt Readings from Last 3 Encounters: 01/17/22 97.5 kg (215 lb) 11/16/21 96.2 kg (212 lb) 10/17/21 96.6 kg (213 lb) BMI Readings from Last 3 Encounters: 01/17/22 37.49 kg/m?? 11/16/21 36.96 kg/m?? 10/17/21 37.14 kg/m?? Interview: resigned from job #2 - feels good to let go of; home sleep study complete - call for results; pt will call bariatrics after appointment today to follow up on outstanding pre-surgery requirements; pt is interested in pre- surgery and post surgery diets; son will be helping after surgery; Weight Loss History: See previous notes from this scientific technical writer and [facility] provider for full account Typical Dietary Intake: 2-3 meals/day B 9/10am: romanian muffin, jam, coffee 2x with cream no sugar OR yogurt, blueberries, banana 11:30: package of crackers L 3x/week: 1/2 tuna fish sandwich OR leftovers; 3pm hungry if skipped lunch D: cheese and crackers late, beer Typical Beverages: 1-2 cups/day coffee; water - 4cups 4x/day; alcohol - 1- 2x/week; no carbonation; Appetite/Hunger: [x] feels managed with foods/meals outlined above [] discussed meal/snack schedule adjustment today- see goals [] patient identifies eating for reasons other than hunger- see interview above [] Current food Tracking [] discussed potential benefit starting food tracking - see goals Patient Goals from Team: Goals ??? meal timing/food choices/ bariatric behaviors Work on eating more mindfully Try tracking, use baritastic - see how it goes Start your day with a protein rather than with a refined carbohydrate ?? Meal timing: consider eating within an 8-10 hour eating window, nothing after dinner, avoid snacking ?? will have formal RD visit for individualized dietary plan to address eating behaviors and timing/frequency of meals. ?? Decrease processed food in favor of more whole foods ?? Avoid or limit alcohol ?? Avoid carbonation ?? Some Bariatric behaviors to work on: ?? Separate eating and drinking by 30 minutes ?? Eat smaller meals and take 20-30 minutes to eat a meal-chew thoroughly and eat slowly and mindfully ?? Eat sitting at the table ?? Drink water throughout the day in sips, goal is 64 oz a day ?? Eat protein first at each meal and eating episode ??? movement ?? Exercise goal is 150 -300 min a week, prioritize self so you have time to exercise ?? Recommend resistance training 3 times a week -can use therabands ??? Nutrition - 02/27/22 Nutrition Goals: ??? Establish consistent meal routine - 9/10am breakfast, 1pm lunch, 6/7pm dinner; Choose protein first at every eating event; avoid skipping meals ??? Continue practicing bariatric drinking behaviors - Separate eating and drinking by 30 minutes, especially after meals; continue water intake to 48 ounces or more per day; eliminate carbonation and alcohol; limit caffeine to 8oz cup or less; ??? Establish exercise routine - continue walking weekly, goal aerobic exercise 150 minutes per week and/or 10,000 steps per day; continue walking dog daily; add resistance exercise to routine - exercise bands, yoga, etc. ??? sleep ?? Continue to work with sleep at [facility] ?? Goal 7 hours of sleep nightly. ?? Recommend consistent sleep and wake times, avoid electronics within one hour of sleep time ??? stress management ?? Mindfulness/deep breathing practice to reduce cortisol -try for at least 10 minutes a day Bariatric eating behaviors introduced or reviewed: [x] Stop eating at comfortable full point (eating slowly to know, chewing thoroughly) [] Any binging identified? (6 months no binging prior to surgery) [x] Regular meal pattern, avoid grazing, reasonable snack frequency [x] Plan protein at all meals and snacks, eat protein first [x] Total water intake - 48 ounces or more [x] eating and drinking by 30 minutes on either side [] Sip rather than gulp [x] Reduce coffee intake down to ~1 cup (caffeine) prior to surgery [x] Reduce alcohol, ideally avoid [] Currently smoking? [] Former smoker, quit date: (2 months nicotine-free prior to surgery) Activity: inconsistent; signed up for riding lessons, walking with horse; [] reviewed current goals [x] updated goals Barriers to Change: none identified today Nutrition Goals updated today: (1) bariatric drinking behaviors (2) consistent meal routine (3) exercise routine Monitor/Evaluate: [] Needs additional fuv scheduled with this scientific technical writer in Return for no f/u needed. (OR) [] Currently scheduled for: [] 1st consecutive monthly nutrition visit [] 2nd consecutive monthly nutrition visit [] 3rd consecutive monthly nutrition visit (OR) [x] Patient has met requirement of 3 consecutive monthly nutrition visits Above determined to the best ability of this scientific technical writer. Patient will contact bariatric surgery team for any official determination about about scheduling and insurance requirements ( ) Thank you Yessy Jonas MS RDN LD 30 minutes were spent in visit today, including contact with patient, chart review, and documentation documented in this encounter Plan of Treatment Upcoming Encounters Date Type Department Care Team (Late st Contact Info) Description 02/01/2025 2:15 PM EDT Office Visit Dermatology at [facility] [address] [place] [address] Regina Rivas MD [facility] DR JO AREVAL[place] [address] documented as of this encounter Goals Goal [...] Note: Continue to work with sleep at [facility] Goal 7 hours of sleep [...] as of this encounter Visit Diagnoses Diagnosis Adult BMI 37.0-37.9 kg/sq m Body Mass Index 37.0-37.9, adult documented in this encounter Care Teams Wet Machine Operator Relationship Specialty Start Date End Date MelodieKrystal juddide CANDE [address] [place] [address] PCP - General Family Medicine 03/08/20 documented as of this encounter
--- OUTSIDE RECORDS SUMMARY | 2024-01-17 18:05 | XMS_ITS | Encounter Summary ---
Author Organization [facility] Address [facility] [place] [address] Care Team Providers Care Etl Informatica Developer Name Role Phone Carolynn Wisdom CENTER DIRECTOR LEAD TEACHER Primary Care Provider Encounter Details Date Type Department Care Team (Latest Contact Info) Description 10/03/2022 Travel Social History Tobacco Use Types Packs/Day [...] 2:15 PM EDT Office Visit Dermatology at [facility] [address] [place] [address] Regina Rivas MD [facility] [place] [address] documented as of this encounter Goals Goal [...] Note: Continue to work with sleep at [facility] Goal 7 hours of sleep [...] on filedocumented in this encounter Care Teams Etl Informatica Developer Relationship Specialty Start Date End Date Carolynn Wisdom APRN [address] [place], [place] [address]Y [facility] 1 [place] [address] PCP - General Family Medicine 03/08/20 documented as of this encounter
--- OUTSIDE RECORDS SUMMARY | 2024-01-17 18:05 | XMS_ITS | Encounter Summary ---
Author Organization [facility] [place] [address] Care Team Providers Care Court Interpreter Name Role Phone Carolynn Wisdom APRN Primary Care Provider Encounter Details Date Type Department Care Team (Late st Contact Info) Description 02/27/2022 Telephone [place] [phone] Aisha Ramos Social History Tobacco Use Types Packs/Day Years [...] encounter Miscellaneous Notes * Telephone Encounter - Aisha Fournier - 02/27/2022 2:11 PM EDT Reviewed patient status within the bariatric surgery program, patient needs the following to proceed with an new patient evaluation with the surgeon: H&P annual exam 7 day food journal Weight chart Sleep Study results Psych clearance documented in this encounter Plan of Treatment Upcoming Encounters Date Type Department Care Team (Late st Contact Info) Description 02/01/2025 2:15 PM EDT Office Visit Dermatology at [facility] [address] [place] [phone] Regina Rivas MD [facility] [place] [address] documented as of this encounter Goals Goal [...] on filedocumented in this encounter Care Teams Court Interpreter Relationship Specialty Start Date End Date Carolynn Wisdom APRN [address] [place] [address] PCP - General Family Medicine 03/08/20 documented as of this encounter
--- OUTSIDE RECORDS SUMMARY | 2024-01-17 18:05 | XMS_ITS | Encounter Summary ---
Author Organization [facility] Eben [place] [address] Care Team Providers Care Pottery Decoration Designer Name Role Phone MelodieCarolynn judd CANDE Primary Care Provider Encounter Details Date Type Department Care Team (Latest Contact Info) Description 07/24/2022 9:00 AM EST TH Visit (TeleHealth) [place] [address] Susan Mohan, PhD [place] [address] Eating disorder, unspecified type Social History Tobacco [...] Progress Notes * Susan Mohan, PhD - 07/24/2022 9:00 AM EST [facility] BARI[facility] PSYCHOLOY FOLLOW UP NOTE N [facility] WEIGHT AND WELLNESS AT [facility] [address] Dept: [phone] Loc: [phone] 07/23/2022 1:10 PM Melinda Goncalves is a 62 y.o. female who was [...] visit they were located at home in [place]. Melinda Goncalves is aware that for any urgent matter they can call [phone].. RECOMMENDATION BASED ON PSYCHOLOGICAL EVALUATION GREEN LIGHT WITH RECOMMENDATIONS - Based on the information gathered during this assessment there are no contraindication with Melinda Goncalves proceeding with surgery. Melinda would benefit from the following to assist with preparing for bariatric surgery: ?? Continue engaging in health promoting behaviors Continue behavioral changes, especially: ?? Eating slowly, taking 20-30 min to complete a meal. Set aside plenty of time for the meal, take smaller bites (children???s utensils can help with this), leave reminders for yourself (e.g., notes,signs) in the places you eat ??? Prioritize protein. Aim for at least 60g daily, and eat the protein first on your plate (followed by starch, and then vegetables/fruits). Consider supplementing with protein shakes or powder, as needed. Talk to your dietitian for specific recommendations. The follow up plan is as follows: No additional f/u SUMMARY The decision noted above is based on the followin. Melinda has made significant weight loss attempts in the past, but without lasting success. 2. Melinda experienced some mental health problems in the past year. 3. Melinda experienced some mental health problems earlier in life. 4. Melinda is not engaging in problematic eating behaviors. 5. Melinda is knowledgeable about the surgery [...] the previous evaluation: WEIGHT Initial Weight: 223lbs Current Weight as of 07/11/2022: 222 lbs Weight changes since evaluation: has been stable PROBLEM EATING BEHAVIORS From previous evaluation: History of nighttime eating (i.e., skipping daytime meals and eating large amounts at dinner or waking at night to eat): yes If h/o nighttime eating, last episode: improving, continues to occur twice/wk ; bringing food to eat at 10am, 12-1 eat more substantial meal, snack at 3pm ?? History of grazing (i.e., continuously eating small snacks): yes If h/o grazing, last episode: Not since she has been more intentional about bringing food with her ?? History of mindless/stress eating (i.e., eating for emotional reasons rather than hunger): yes If h/o stress eating, last episode: Improving - Melinda noted that being aware of her eating has helped. No longer has many sugary snacks available to her - no longer keeping in the home/work/car. Continues to be a reward ?? 07/23/2022: History of nighttime eating (i.e., skipping daytime meals and eating large amounts at dinner or waking at night to eat): yes If h/o nighttime eating, last episode: Has shifted her meal time to 5pm. History of grazing (i.e., continuously eating small snacks): yes If h/o grazing, last episode: Not since the previous evaluation History of mindless/stress eating (i.e., eating for emotional reasons rather than hunger): yes If h/o stress eating, last episode: Not since the previous evaluation POST SURGERY EATING HABIT CHANGES AND READINESS From previous evaluation: ??? Eating slowly, taking 20-30min to complete a meal: Aware of the need and practicing about 50% of the time and has been practicing at this rate for about 1 month(s). ? eating and drinking by 30 minutes: Aware of the need and practicing about 50% of the time and has been practicing at this rate for about 2 week(s). ? Following a consistent meal pattern: Aware of the need and practicing about 60% of the time and has been practicing at this rate for about 1 month(s). ? Regular exercise: Aware of the need of regular exercise and not regularly - job can be active - takes stairs at work,etc... Will be starting yoga this week. 07/23/2022: ??? Eating slowly, taking 20-30min to complete a meal: Aware of the need and practicing about 50% of the time and has been practicing at this rate for about 5+ month(s). ??? eating and drinking by 30 minutes: Aware of the need and practicing about 85% of the time and has been practicing at this rate for about several month(s). ??? Eating smaller quantities: Aware of the need and practicing about 100% of the time and has been practicing at this rate for about 3 month(s). ??? Protein at each meal (should be eating it first): Aware of the need and practicing about 67% of the time and has been practicing at this rate for about 5+ month(s). ??? Sipping 6-8 8oz-glasses of water slowly: Aware of the need and practicing about 100% of the time and has been practicing at this rate for about several month(s). Other beverages: 1 glass of wine or beer/wk, decaf tea, 1 cup of coffee/day ??? Following a consistent meal pattern: Aware of the need and practicing about 100% of the time and has been practicing at this rate for about several month(s). ??? Regular exercise: Aware of the need of regular exercise and yoga 3 times/wk, skiing 1-2 times/wk. Current implementation of habit changes: good MENTAL HEALTH UPDATE: Melinda reported that she has been doing well. Melinda reported that she purchased a [employer] has been working on with her kids. Melinda reported that she has been exercising and doing yoga.Melinda reported that she looked into online therapy but was uncomfortable. Melinda reported that sheis cooking more at home. ADHERENCE AND ATTENDANCE 07/23/2022: Sleep Apnea? Yes If yes, Night per week using CPAP: nightly. Medication adherence - how many days in the past 7 did you miss any of your medications?: 0 Current stressors or anticipated stressful events that might interfere with Melinda focusing on necessary habit changes before or after surgery include: none. Severity of stressor(s: n/a The assessment and plan for Melinda Goncalves are detailed at the beginning of this report. documented in this encounter Plan of Treatment Upcoming Encounters Date Type Department Care Team (Late st Contact Info) Description 02/01/2025 2:15 PM EDT Office Visit Dermatology at [facility] [address] [place] [phone] Regina Rivas MD [facility] DR [place] [address] documented as of this encounter Goals Goal [...] type documented in this encounter Care Teams Pottery Decoration Designer Relationship Specialty Start Date End Date Carolynn Wisdom APRN [address] [place] [address] PCP - General Family Medicine 03/08/20 documented as of this encounter
--- OUTSIDE RECORDS SUMMARY | 2024-01-17 18:05 | XMS_ITS | Encounter Summary ---
Author Organization [facility] [place] [address] Care Team Providers Care Compensation Manager Name Role Phone Carolynn Wisdom PING PONG TABLE ASSEMBLER Primary Care Provider Reason for Visit * Reason Comments Prior Authorization Stelara 90mg/ml syri nges Encounter Details Date Type Department Care Team (Late st Contact Info) Description 03/13/2022 Specialty [place] [address] Olga Perez, HAIR SPINNER Social History Tobacco Use Types Packs/Day Years [...] encounter Progress Notes * Olga Perez - 03/13/2022 10:02 AM EDT [facility], Medication Prior Authorization Submission Patient: Melidna Goncalves Patient : 1960 Patient Address: [facility] [address] Phone: [phone] (home) Medication Name: STELARA 90 MG/ML SUBCUTANEOUS SYRINGE Medication ID: [id number] Subscriber Insurance: Unable to find Subscriber Insurance Comment: [facility](IRX) Fax: Physician: MAXI MASON Physician Comment: Sent Via: [facility] Oneal: [id number] Ref/Case/PA#: Medication Strength Frequency Requested: Stelara 90mg/ml, inject 1ml subcutaneously every 12 weeks Qty/Day Supply: New Start: Renewal Diagnosis & ICD-10 Code: Psoriasis L40.9 Patient Notified: No Submission Notes: - Prior authorization for 1ml for every 12 weeks was submitted as PA for every 10 weeks got denied Olga Perez 03/13/22 10:08 AM * Olga Perez - 03/13/2022 10:02 AM EDT [facility], Prior Authorization Denial Medication Name: STELARA 90 MG/ML SUBCUTANEOUS SYRINGE Medication ID: [id number] Case/Reference # : [id number] Denial Summary: PATIENT'S WEIGHT SHOULD BE MORE THAN 100KG. STELARA 45MG/0.5ML CAN BE APPROVED UPONREQUEST. Patient Notified of Denial: No Additional Information from insurance carrier. Please see below: None For any questions relating to this denial please reach out directly to your section's specialty pharmacist, or the specialty pharmacy team at [facility] Olga Perez 03/13/22 4:29 PM documented in this encounter Plan of Treatment Upcoming Encounters Date Type Department Care Team (Late st Contact Info) Description 02/01/2025 2:15 PM EDT Office Visit Dermatology at [facility] [address] [place] [address] Regina Rivas MD [facility] [place] [address] documented as of this encounter Goals Goal [...] Continue to work with sleep at [facility] Goal 7 hours of sleep nightly. Recommend [...] on filedocumented in this encounter Care Teams Compensation Manager Relationship Specialty Start Date End Date Carolynn Wisdom APRN [address] [place] [address] PCP - General Family Medicine 03/08/20 documented as of this encounter
--- OUTSIDE RECORDS SUMMARY | 2024-01-17 18:05 | XMS_ITS | Encounter Summary ---
Author Organization [facility] [place] [address] Care Team Providers Care Hog Counter Name Role Phone Carolynn Wisdom APRN Primary Care Provider Reason for Visit * Reason Comments Specialty Pharmacy Review Encounter Details Date Type Department Care Team (Late st Contact Info) Description 10/01/2022 Specialty [place] [address] Jean Slaughter, [facility] Social History Tobacco Use Types Packs/Day Years [...] as of this encounter Progress Notes * Jean Slaughter - 10/01/2022 11:59 PM EDT The [facility] has completed a benefits investigation for Melinda Goncalves to review their eligibility to fill at [facility]. Per patient's medication list they are prescribed STELARA 90 MG/ML and the medication is currently filled at the [facility]. documented in this encounter Plan of Treatment Upcoming Encounters Date Type Department Care Team (Late st Contact Info) Description 02/01/2025 2:15 PM EDT Office Visit Dermatology at [facility] [address] [place] [address] Regina Rivas MD [facility] [place] [address] documented as of this encounter Goals Goal [...] Note: Continue to work with sleep at [facility] Goal 7 hours of sleep nightly. [...] on filedocumented in this encounter Care Teams Hog Counter Relationship Specialty Start Date End Date Artis CANDE Pradhan [address] [place] [address] PCP - General Family Medicine 03/08/20 documented as of this encounter
--- OUTSIDE RECORDS SUMMARY | 2024-01-17 18:05 | XMS_ITS | Encounter Summary ---
Author Organization [facility] [place] [address] Care Team Providers Care Road Marker Name Role Phone Carolynn Wisdom HOT MAN Primary Care Provider Reason for Visit * Reason Comments Specialty Refill Management Stelara 90mg /ml Sosy Medication Management Encounter Details Date Type Department Care Team (Late st Contact Info) Description 07/04/2022 Specialty [place] [address] Enrique Kohli, TELEVISION DIRECTOR Social History Tobacco Use Types Packs/Day Years [...] as of this encounter Progress Notes * Artemio Collins RPH - 07/04/2022 8:43 AM EST Specialty Pharmacy Consultation; Artemio Collins RPH Comprehensive Medication Management (CMM): Specialty Consult, Opt Out Melinda Beardcyril Diagnosis: Inverse psoriasis Therapy Start Date: 06/20/21 Contact in person or via telephone: Phone Ms. Melinda Goncalves is a 62 y.o. (1960) female who was contacted in regard to specialty medication. Spoke with patient regarding stelara. A review of the medication therapy was performed. The medication was refilled as scheduled, and all medication related questions and concerns were addressed. The specialty pharmacy staff will follow up with the patient 5-7 days prior to next refill. Additionally, per last notes the patient should have injected 04/10 (but pt doesn't remember which date she injected for sure) so she might be a few days late; also patient had mentioned that since injecting the first time, the medication seems to be wearing off sooner than liked. It started wearing off ar ound week 10 two injections ago, and this time around week 11. She's still experiencing some rash and irritation, though she says she does have some prescribed creams that have been helping a bit with that. She plans to discuss all these concerns at her next visit and has no questions or concerns at this time. Is the patient willing to proceed with the Clinical Assessment? No Summary and Recommendations: Today Melinda Singleton Kishacyril spoke to a pharmacy staff member about refilling stelara and was also due fora routine 6month follow up consultation. The medication was refilled but the patient declined the consult or the offer to speak with a pharmacist. Economic Assessment: Patient is agreeable to medication copay: Yes Copay Amount: $150 Day Supply: 84 Date Needed: 07/08/21 Therapy Assessment: Appropriate Therapy: Yes Current Medication Dosing/Route/Frequency: Stelara 90mg subq every 12 weeks Additional equipment/supplies required: no Care Plan Reviewed and Approved by Pharmacist : Yes Problem List: Patient Active Problem List Diagnosis Code ??? Hyperlipidemia E78.5 ??? 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 Migraine headache with aura G43.109 ??? Subclinical hypothyroidism E03.8 ??? Transient vision disturbance of left eye H53.9 ??? Type 2 diabetes mellitus E11.9 ??? Class 2 severe obesity due to excess calories with serious comorbidity and body mass index (BMI) of 38.0 to 38.9 in adult E66.01, Z68.38 Medications Reviewed: Yes Medications reconciled: No Allergies Reviewed:Yes Allergies reconciled: No Pharmacist follow-up needed: Yes Informed patient of specialty pharmacy services: Yes Welcome Packet and Rights and Responsibilities: Patient provided welcome packet/rights and responsibilities: Yes Date Confirmed: 11/23/20 Confirmation: Signature in [employer] -Patient is aware a licensed pharmacist is available 24 hours a day, 7 days a week to discuss medication-related questions or concerns: Yes -Patient verbalizes understanding of the common side effect profile of their medication. The patient is able to call 911 or seek urgent care if signs/symptoms of allergy or harmful adverse reactions occur: Yes Patient understands no changes to current drug regimen were made at the appointment and that the pharmacist is providing recommendations (summary located at top of note) for provider review and follow up. Artemio Collins RPH 07/04/22 9:25 AM documented in this encounter Plan of Treatment Upcoming Encounters Date Type Department Care Team (Late st Contact Info) Description 02/01/2025 2:15 PM EDT Office Visit Dermatology at [facility] [address] [place] [address] Regina Rivas MD [facility] [place] [address] documented as of this encounter Goals Goal [...] to work with sleep at [facility] Goal 7 hours of sleep nightly. Recommend [...] on filedocumented in this encounter Care Teams Road Marker Relationship Specialty Start Date End Date Carolynn Wisdom APRN [address] [place] [address] PCP - General Family Medicine 03/08/20 documented as of this encounter
--- OUTSIDE RECORDS SUMMARY | 2024-01-17 18:05 | XMS_ITS | Encounter Summary ---
Author Organization [facility] [place] [address] Care Team Providers Care Customs Compliance Manager Name Role Phone Carolynn Wisdom APRN Primary Care Provider Reason for Visit * Reason Comments Specialty Pharmacy Review Stelara Encounter Details Date Type Department Care Team (Late st Contact Info) Description 03/30/2022 Specialty [place] [address] Eric Basurto CPHT Social History Tobacco Use Types Packs/Day Years [...] as of this encounter Progress Notes * Eric Basurto CPHT - 03/30/2022 7:20 AM EDT [facility] has completed a benefits investigation for Melinda Goncalves to review their eligibility to fill at [facility]. Per patient's medication list they are prescribed Stelara 90mg/ml Syringe and the medication is able to be filled at the [facility]. The patient currently fills the medication through [facility]. documented in this encounter Plan of Treatment Upcoming Encounters Date Type Department Care Team (Late st Contact Info) Description 02/01/2025 2:15 PM EDT Office Visit Dermatology at [address] [place] [address] Regina Rivas MD [facility] [place] [address] documented as of this encounter Goals Goal [...] on filedocumented in this encounter Care Teams Customs Compliance Manager Relationship Specialty Start Date End Date Carolynn Wisdom APRN [address] [place] [address] PCP - General Family Medicine 03/08/20 documented as of this encounter
--- OUTSIDE RECORDS SUMMARY | 2024-01-17 18:05 | XMS_ITS | Encounter Summary ---
Author Organization [facility] [place] [place] [address] Care Team Providers Care Sales Order Coordinator Name Role Phone ReginaldoCynthia velazquezCarolynn CANDE Primary Care Provider Reason for Visit * Auth/Cert (Routine) Specialty [...] EGD, UPPER GI ENDOSCOPY Ronda Mckeon MD [facility] [place] [address] [facility] Referral ID Status Reason Start Date Expiration Date Visits Re quested Visits Authorized [id number] 1 1 Encounter Details Date Type Department Care Team (Late st Contact Info) Description 10/19/2022 8:30 AM EDT - 10/19/2022 1:15 PM EDT Surgery [place] [id number] Ronda Mckeon MD [facility] [place] [address] @LAPAROSCOPIC GASTROPLASTY W/ DAVID-EN-Y CONSTRUCTION (WRVU 29.4) Social History Tobacco Use Types Packs/Day Years [...] Sign Reading Time Taken Comments Blood Pressure 109/69 10/19/2022 7:09 AM EDT Pulse 60 10/19/2022 7:09 AM EDT Temperature 36.3 ??C (97.3 ??F) 10/19/2022 7:09 AM ED T Respiratory Rate 16 10/19/2022 7:09 AM EDT Oxygen Saturation 98% 10/19/2022 7:09 AM EDT Inhaled Oxygen Concentration - - Weight 99.8 kg (220 lb) 10/19/2022 7:09 AM EDT Height 160 cm (5' 3) 10/19/2022 7:09 AM EDT Body Mass Index 38.97 10/19/2022 7:09 AM EDT documented in this encounter Discharge Summaries * aHlima De La Rosa MD - 10/21/2022 10:25 [...] Fellow - Assisting: Procedure(s): @LAPAROSCOPIC GASTROPLASTY W/ DAVID-EN-Y CONSTRUCTION (WRVU 29.4) [...] STOPPED Medications aspirin EC 81 mg EC (DR) tablet Ibuprofen 200 mg Cap Lantus Solostar U-100 Insulin 100 unit/mL (3 mL) pen Generic drug: insulin glargine UNREVIEWED medications - Discuss With Your Provider Dose Details calcipotriene 0.005 % Crea Commonly known as: Dovonex Apply to lesions on body twice a day M-F Quantity: 120 g Refills: 0 * clobetasoL [...] Center 11/09/2022 12:30 PM Marjorie Holman APRN [facility] SURG [facility] 02/15/2023 12:30 PM Marjorie Holman APRN [facility] SURG [facility] 07/11/2023 2:00 PM Karla Woody APRN [facility] Outpatient Services/Studies: No discharge procedures on file. Instructions Given to Patient at Discharge:. An After Visit Summary was printed and given to the patient. Patient Instructions BARIATRIC SURGERY DISCHARGE INFORMATION BARIATRIC SUPPORT TEAM CONTACT NUMBERS (Mon-Fri 8am - 5pm): General Surgery and Bariatric Surgery [phone] Bariatric Surgeons: Mike Dvaidson and Peter [phone] Drosser: [phone] Dietitians: [phone] Outside of regular business hours, including weekends and holidays: Ask for General Surgery resident ultrasound applications specialist [phone] Please note, this call will be answered [...] weeks at the General Surgery Outpatient Clinic (Professor Of Medicine 4L, [facility]). Future Appointments Date Time Provider Department Center 11/09/2022 12:30 PM Marjorie Holman APRN [facility] SURG [facility] 02/15/2023 12:30 PM Marjorie Holman APRN [facility] SURG [facility] 07/11/2023 2:00 PM Karla Woody APRN [facility] [address] BATHING AND WOUND CARE: ?? [...] for assistance to pay for this with [employer]. Go to www.PatientsLikeMe and put in the prescription and the [...] Follow up with primary care provider or health informatics specialist in 1-2 weeks in order to [...] La Rosa MD 10/21/22 10:28 AM MISpager [phone] documented in this encounter Discharge Instructions * Patient Instructions* Halima De La Rosa MD - 10/19/2022 8:31 PM EDT Images from the original note were not included. BARIATRIC SURGERY DISCHARGE INFORMATION BARIATRIC SUPPORT TEAM CONTACT NUMBERS (Mon-Fri 8am - 5pm): General Surgery and Bariatric Surgery [phone] Bariatric Surgeons: Mike Davidson and Peter [phone] Drosser: [phone] Dietitians: [phone] Outside of regular business hours, including weekends and holidays: Ask for General Surgery resident ultrasound applications specialist [phone] Please note, this call will be answered [...] weeks at the General Surgery Outpatient Clinic (Professor Of Medicine 4L, [facility]). Future Appointments Date Time Provider Department Center 11/09/2022 12:30 PM Marjorie Holman APRN [facility] SURG [facility] 02/15/2023 12:30 PM Marjorie Holman APRN [facility] SURG [facility] 07/11/2023 2:00 PM Karla Woody APRN [facility] [address] BATHING AND WOUND CARE: [...] for assistance to pay for this with [employer]. Go to www.PatientsLikeMe and put in the prescription and the [...] Follow up with primary care provider or health informatics specialist in 1-2 weeks in order to [...] ADLs]: Standby assist Surveillance [continuous indirect monitoring]: Joanno, purposeful hourly rounding Patient-specific fall prevention interventions [...] Surgery 9:40 AM 10/20/22 MIS service pager: [phone] Associated attestation - Ronda Mckeon MD - 10/20/2022 1:11 PM EDT I have seen and examined the patient, reviewed the history documented and I agree with the details as written. I have reviewed the available, pertinent laboratory data and imaging. The assessment andplan were formulated in discussion with me and I agree with them as documented. Ronda Mckeon MD * Jewel Burnett, [facility] - 10/20/2022 7:12 AM EDT Respiratory Care Consult Note Melinda Goncalves 1960 [id number] 10/19/2022 6:52 AM Hospital Day: 1 Reason for Consult: Pt is post op Gastric Bypass with Hx of HEATHER and use of NIV History: Meilnda Goncalves is a 62 y.o. female with a PMHx significant for HEATHER, who was admitted to [facility] for Gastric Bypass. Home NIV: Yes - [...] please contact the Respiratory Department at Pager #[phone]. * Halima De La Rosa MD - [...] POD0 from @LAPAROSCOPIC GASTROPLASTY W/ DAVID-EN-Y CONSTRUCTION [facility] [address]29 (CPT??) EGD, UPPER GI ENDOSCOPY [facility] 80834 (CPT??) recovering as expected. Will be moving to floor bed shortly. Will need to ambulate to attempt void shortly. Continue post-op pathway Pain control Incentive spirometry Clear liquid diet Post-op nausea control Out of bed strict I/O, follow up void trial Will continue to monitor Halima De La Rosa MD 10/19/22 6:44 PM MISpager [phone] * Almaz Sanchez RN - 10/19/2022 4:16 PM EDT Break coverage 1929 Care assumed 1999 Hand off to MEGAN Iniguez [facility] * Wanda Guzman RN - 10/19/2022 1:53 PM EDT 1344: Pt arrived to PACU from OR. Monitor applied, alarms set and audible. Airway maintained. 1450: PRN compazine for nausea. 1551: Denies c/o, resting between care, veronica sips. 1720: Pain tolerable, 1/10. IS teaching given. Denies other c/o. 1915: Report given to MEGAN Muse. documented in this encounter H&P Notes * Halima De La Rosa MD - 10/19/2022 8:25 AM EDT [facility] Minimally Invasive Surgery Pre-Operative H&P Patient evaluated day of surgery. Please see below for details of patient history as adapted from last clinic visit.No new findings or changes to medical history. No recent illnesses, cough, fever, diarrhea. Plan to proceed with surgery. Halima De La Rosa MD 10/19/22 8:25 AM [address] [facility] Bariatric Surgery Evaluation ? Reason for [...] Has not attended a Introduction to the [facility] Bariatric Surgery Program seminar, a comprehensive two hour meeting that provides a program overview, education on bariatric surgeries offered at [facility], risks and benefits, as well as patient expectations and follow up. [facility] Educational seminars viewed 2. Bariatric Surgery Program evaluations with RD: Completed today 3. Program start weight 222 WT at visit #1: Wt & BMI By Encounter Date Flowsheet Row Office Visit from 07/31/2022 in General Surgery at [facility] Office Visit from 07/11/2022 [facility] Weight 99.8 kg (220 lb) 1 07/31/2022 [...] allergy/sensitivity: denies ?? control plan: postmenopausal. ?? [facility] Preoperative Risk Assessment (negative if left [...] Psychological evaluation done by Susan Mohan, PhD, [facility] Weight and Wellness : no contraindication to bariatric surgery from a psychological perspective. ? [facility] Initial Responses 07/31/2022 URICA - Readiness Score - WEL-SF Total Scores - PHQ-2 SubScore - GAD2 Subscore - MARIMAR 7 Total Scores - PROMIS 10 Physical Scores 42.3 PROMIS 10 Mental Scores 43.5 Total REAP-S Scores - TFEQ - Uncontrolled Eating (UE) - TFEQ-Cognitive Restraint (CR) - TFEQ-Emotional Eating - Food Insecurity Score 2 [place] Category I Result - [place] Category II Result - [place] Category III - [place] Sleep Apnea Total - Schooling Graduated from [...] surgery to be successful. Patient understands the penitentiary risks of vitamin deficiencies, internal hernias and [...] Dr. Mckeon to reach out to pt's nanny/household manager re: Stelara and confirm plan to schedule surgery for week 13 s/p last Stelara dose which was 07/10/22. ??? Continue CPAP use and compliance. Reviewed risks of untreated/undertreated HEATHER pre/rachel/post operatively. Consider repeat compliance report. ??? Preoperative Group Class ??? CBC and CMP within 6 months of surgery, per [facility] accredited bariatric center guidelines. (Sent to lab [...] 10/03/2022 1:00 PM EDT BARIATRIC SURGERY PROGRAM [place], [place] [address] Reason for visit: [facility] for up coming bariatric surgery Melinda attended a comprehensive group pre-operative class today, which included discussion of pre and post operative instructions included in the [facility] Bariatric Surgery Program Education Handbook. The nutrition [...] Pt previously attended a Introduction to the [facility] Bariatric Surgery Program seminar,a two hour meeting that provides a program overview as well as expectations. The [facility] Bariatric Surgery Program Educational seminar requirement has [...] of surgery and post-op routine care/ locations: Admissions/SDP/PACU/4/3/2 Michael units ?? medications that increase the risk [...] Mckeon MD - 10/19/2022 9:47 AM EDT [facility] Operative Note Patient Name: Melinda Goncalves : [id number] MR#: [id number] Case Date: 10/19/2022 Surgeon: Surgeon(s) and Role: [...] from the point of transection, and a idnh-us-sdpo jejunojejunostomy was created between this point in the David limb and the end of the biliopancreatic limb with a 60mm strong load Endo ANDRZEJ stapler inserted through enterotomies created with the ultrasonic dissector. The resulting common enterotomy was closed with another firing of the 60mm strong load Endo ANDRZEJ stapler. The mesenteric defect was closed with a running 2-0 Surgidac suture. The Zia drain was attached to the cut end [...] surrounding tissue in preparation for anastomosis. The [place] drain was identified in the lesser sac [...] 2:15 PM EDT Office Visit Dermatology at [facility] [address] [place] [address] Regina Rivas MD [facility] [place] [address] documented as of this encounter Goals Goal [...] to work with sleep at [facility] Goal 7 hours of [...] 1:24 PM EDT Upper GI Endoscopy, Diagnostic (60948) 10/19/2022 9:12 AM EDT Morbid Obesity Lap Gastric Bypass/David-En-Y (59152) 10/19/2022 9:12 AM EDT Morbid Obesity POCT GLUCOSE Routine 10/19/2022 7:15 AM EDT UPPER GI ENDOSCOPY Routine 10/19/2022 6: 56 AM EDT LAPAROSCOPIC GASTROPLASTY, G\SURG Routine 10/19/2022 6:56 AM EDT documented in this encounter Results * POCT Glucose (10/21/2022 7:32 AM EDT) POC Glucose 95 65 - 199 mg/dL [facility] Comment: Supplemental ranges: <140 mg/dL before meals <180 mg/dL all other times of the day Blood 10/21/2022 7:32 AM EDT 10/21/2022 7:32 AM EDT Ronda Mckeon MD POINT OF CARE TEST O RDERAKENDRA [facility] [place] [address] * POCT Glucose (10/21/2022 12:33 AM EDT) POC Glucose 112 65 - 199 mg/dL [facility] Comment: Supplemental ranges: <140 mg/dL before meals <180 mg/dL all other times of the day Blood 10/21/2022 12:3 3 AM EDT 10/21/2022 12:33 AM EDT Ronda Mckeon MD POINT OF CARE TEST O AUDELIA Performing Organization Address City/[facility]/ZIP Co de Phone Number [facility] [place] [address] * POCT Glucose (10/20/2022 8:26 PM EDT) POC Glucose 130 65 - 199 mg/dL [facility] Comment: Supplemental ranges: <140 mg/dL before meals <180 mg/dL all other times of the day Blood 10/20/2022 8:26 PM EDT 10/20/2022 8:26 PM EDT Ronda Mckeon MD POINT OF CARE TEST O RDERAKENDRA [facility] [place] [address] * POCT Glucose (10/20/2022 6:17 PM EDT) [facility] POC Glucose 120 65 - 199 mg/dL [facility] Comment: Supplemental ranges: <140 mg/dL before meals <180 mg/dL all other times of the day Blood 10/20/2022 6:17 PM EDT 10/20/2022 6:17 PM EDT Ronda Mckeon MD POINT OF CARE TEST O RDERABLES [facility] [place] [address] * Differential, Automated (10/20/2022 2:12 PM EDT) [facility] Neutrophils % 68.5 % [facility] Neutr Abs (ANC) 5.89 1.70 - 6.10 x10(3)/[facility] Lymphocytes % 24.0 % [facility] Lymphocytes Abs 2.1 0.9 - 3.2 x10(3)/[facility] Monocytes % 5.6 % [facility] Monocyte Abs 0.5 0.3 - 0.9 x10(3)/[facility] Eosinophils % 1.4 % [facility] Eosinophils Abs 0.1 0.0 - 0.4 x10(3)/[facility] Basophils % 0.3 % [facility] Basophils Abs 0.0 0.0 - 0.1 x10(3)/[facility] Immature Gran % 0.20 % [facility] Comment: Immature granulocytes(IG's)percentage and absolute count will include metamyelocytes, myelocytes, and promyelocytes. Blood smears from CBCs yielding IG's will be scanned manually for concordance. If this scan disagrees with the automated IG or if promyelocytes are noted, a manual differential will be performed. Micki Gran Abs 0.02 0.00 - 0.04 x10(3)/[facility] Blood 10/20/2022 2:12 PM EDT 10/20/2022 2:17 PM EDT Narrative Resulting Agency Comment Spec In Lab Halima De La Rosa MD HEMATOLOGY ORDERABLE S [facility] [place] [address] * (ABNORMAL) Hemogram (10/20/2022 2:12 PM EDT) WBC 8.6 4.0 - 9.5 x10(3)/[facility] RBC 3.84(L) 4.00 - 5.21 x10(6)/[facility] Hemoglobin 11.0(L) 11.7 - 15.5 g/dL [facility] Hematocrit 34.2(L) 35.7 - 45.8 % [facility] MCV 89.1 82.6 - 94.4 fL [facility] MCH 28.6 27.1 - 32.0 pg [facility] MCHC 32.2 31.7 - 35.0 g/dL [facility] Platelets 243 145 - 357 x10(3)/[facility] RDWSD 44.7 37.0 - 46.0 [facility] RDWCV 13.7 11.5 - 14.1 % [facility] MPV 10.9 7.6 - 12.9 [facility] nRBC % Auto 0.0 % [facility] nRBC Abs Auto 0.000 0.000 - 0.000 x10(3)/[facility] Blood 10/20/2022 2:12 PM EDT 10/20/2022 2:17 PM EDT Narrative Resulting Agency Comment Spec In Lab Halima De La Rosa MD HEMATOLOGY ORDERABLE S [facility] [place] [address] * POCT Glucose (10/20/2022 12:39 PM EDT) [facility] POC Glucose 101 65 - 199 mg/dL [facility] Comment: Supplemental ranges: <140 mg/dL before meals <180 mg/dL all other times of the day Blood 10/20/2022 12:3 9 PM EDT 10/20/2022 12:39 PM EDT Ronda Mckeon MD POINT OF CARE TEST O RDERABLES Performing Organization Address [facility]/ZIP Co de Phone Number [facility] [place] [address] * Differential, Automated (10/20/2022 8:52 AM EDT) [facility] Neutrophils % 69.0 % [facility] Neutr Abs (ANC) 5.76 1.70 - 6.10 x10(3)/[facility] Lymphocytes % 23.4 % [facility] Lymphocytes Abs 2.0 0.9 - 3.2 x10(3)/[facility] Monocytes % 6.3 % [facility] Monocyte Abs 0.5 0.3 - 0.9 x10(3)/[facility] Eosinophils % 0.7 % [facility] Eosinophils Abs 0.1 0.0 - 0.4 x10(3)/[facility] Basophils % 0.4 % [facility] Basophils Abs 0.0 0.0 - 0.1 x10(3)/[facility] Immature Gran % 0.20 % [facility] Comment: Immature granulocytes(IG's)percentage and absolute count will include metamyelocytes, myelocytes, and promyelocytes. Blood smears from CBCs yielding IG's will be scanned manually for concordance. If this scan disagrees with the automated IG or if promyelocytes are noted, a manual differential will be performed. Micki Gran Abs 0.02 0.00 - 0.04 x10(3)/[facility] Blood 10/20/2022 8:52 AM EDT 10/20/2022 9:24 AM EDT Narrative Resulting Agency Comment Spec In Lab Halima De La Rosa MD HEMATOLOGY ORDERABLE S [facility] [place] [address] * (ABNORMAL) Hemogram (10/20/2022 8:52 AM EDT) WBC 8.4 4.0 - 9.5 x10(3)/[facility] RBC 3.71(L) 4.00 - 5.21 x10(6)/[facility] Hemoglobin 10.7(L) 11.7 - 15.5 g/dL [facility] Hematocrit 32.5(L) 35.7 - 45.8 % [facility] MCV 87.6 82.6 - 94.4 [facility] MCH 28.8 27.1 - 32.0 pg [facility] MCHC 32.9 31.7 - 35.0 g/dL [facility] Platelets 221 145 - 357 x10(3)/[facility]ORY RDWSD 44.0 37.0 - 46.0 [facility]ORY RDWCV 13.7 11.5 - 14.1 % [facility] MPV 11.1 7.6 - 12.9 [facility] nRBC % Auto 0.0 % [facility] nRBC Abs Auto 0.000 0.000 - 0.000 x10(3)/[facility] Blood 10/20/2022 8:52 AM EDT 10/20/2022 9:24 AM EDT Narrative Resulting Agency Comment Spec In Lab Halima De La Rosa MD HEMATOLOGY ORDERABLE S [facility] [place] [address] * (ABNORMAL) Differential, Automated (10/20/2022 4:12 AM EDT) Neutrophils % 75.6 % [facility] Neutr Abs (ANC) 6.83(H) 1.70 - 6.10 x10(3)/ L [facility] Lymphocytes % 18.1 % [facility] Lymphocytes Abs 1.6 0.9 - 3.2 x10(3)/[facility] Monocytes % 5.8 % [facility] Monocyte Abs 0.5 0.3 - 0.9 x10(3)/[facility] Eosinophils % 0.1 % [facility] Eosinophils Abs 0.0 0.0 - 0.4 x10(3)/[facility] Basophils % 0.2 % [facility] Basophils Abs 0.0 0.0 - 0.1 x10(3)/[facility] Immature Gran % 0.20 % [facility] Comment: Immature granulocytes(IG's)percentage and absolute count will include metamyelocytes, myelocytes, and promyelocytes. Blood smears from CBCs yielding IG's will be scanned manually for concordance. If this scan disagrees with the automated IG or if promyelocytes are noted, a manual differential will be performed. Micki Gran Abs 0.02 0.00 - 0.04 x10(3)/[facility] Blood 10/20/2022 4:12 AM EDT 10/20/2022 4:36 AM EDT Narrative Resulting Agency Comment Spec In Lab Halima De La Rosa MD HEMATOLOGY ORDERABLE S [facility] [place] [address] * (ABNORMAL) Hemogram (10/20/2022 4:12 AM EDT) WBC 9.0 4.0 - 9.5 x10(3)/[facility] RBC 3.66(L) 4.00 - 5.21 x10(6)/[facility] Hemoglobin 10.7(L) 11.7 - 15.5 g/dL [facility] Hematocrit 32.1(L) 35.7 - 45.8 % [facility] MCV 87.7 82.6 - 94.4 [facility]ORY MCH 29.2 27.1 - 32.0 pg [facility] MCHC 33.3 31.7 - 35.0 g/dL [facility] Platelets 236 145 - 357 x10(3)/[facility] LABORATORY RDWSD 43.8 37.0 - 46.0 [facility]ORY RDWCV 13.5 11.5 - 14.1 % [facility] MPV 11.2 7.6 - 12.9 [facility] nRBC % Auto 0.0 % [facility] nRBC Abs Auto 0.000 0.000 - 0.000 x10(3)/[facility] Blood 10/20/2022 4:12 AM EDT 10/20/2022 4:36 AM EDT Narrative Resulting Agency Comment Spec In Lab Halima De La Rosa MD [place] [address] * Phosphorus (10/20/2022 4:12 AM EDT) Phosphorus 3.8 2.5 - 4.5 mg/dL [facility] Blood 10/20/2022 4:12 AM EDT 10/20/2022 4:36 AM EDT Narrative Resulting Agency Comment Spec In Lab Halima De La Rosa MD CHEMISTRY ORDERABLES Performing Organization Address City/[facility]/ZIP Co de Phone Number [facility] [place] [address] * Magnesium (10/20/2022 4:12 AM EDT) Magnesium 0.74 0.69 - 1.07 mmol/L [facility] Blood 10/20/2022 4:12 AM EDT 10/20/2022 4:36 AM EDT Narrative Resulting Agency Comment Spec In Lab Halima De La Rosa MD CHEMISTRY ORDERABLES Performing Organization Address [facility] Co de Phone Number [facility] [place] [address] * (ABNORMAL) Basic Metabolic Panel (non-fasting) (10/20/2022 4:12 AM EDT) Glucose Lvl 136 65 - 199 mg/dL [facility] Comment:Diabetes: >=200 mg/d L plus symptoms BUN 14 8 - 18 mg/dL [facility] Creatinine 0.82 0.70 - 1.20 mg/dL [facility] Sodium 137 135 - 145 mmol/L [facility] Potassium 4.0 3.5 - 5.0 mmol/L [facility] Comment: Please note: ??Patients with WBC >100,000 may have falsely elevated Potassium levels. ??For accurate Potassium quantification in these patients send serum separator tube (gold top) for subsequent determinations. ??Contact the Clinical Chemistry Laboratory if there are any questions. Chloride 105 98 - 107 mmol/L [facility] CO2 24 22 - 31 mmol/L [facility] Anion Gap 8 5 - 15 mmol/L [facility] Calcium 8.4(L) 8.5 - 10.5 mg/dL [facility] Estimated GFR 81 >=60 mL/min/1. 73 m?? [facility] Comment: This patient's estimated GFR [...] Rosa MD CHEMISTRY ORDERABLES Performing Organization Address [facility]/ZIP Co de Phone Number [facility] [place] [address] * POCT Glucose (10/19/2022 5:29 PM EDT) POC Glucose 140 65 - 199 mg/dL [facility] Comment: Supplemental ranges: <140 mg/dL before meals <180 mg/dL all other times of the day Blood 10/19/2022 5:29 PM EDT 10/19/2022 5:29 PM EDT Ronda Mckeon MD POINT OF CARE TEST O RDERABLES [facility] [place] [address] * POCT Glucose (10/19/2022 1:46 PM EDT) POC Glucose 147 65 - 199 mg/dL [facility] Comment: Supplemental ranges: <140 mg/dL before meals <180 mg/dL all other times of the day Blood 10/19/2022 1:46 PM EDT 10/19/2022 1:46 PM EDT Ronda Mckeon MD POINT OF CARE TEST O AUDELIA Performing Organization Address [facility] de Phone Number [facility] [place] [address] * POCT Glucose (10/19/2022 1:24 PM EDT) POC Glucose 154 65 - 199 mg/dL [facility] Comment: Supplemental ranges: <140 mg/dL before meals <180 mg/dL all other times of the day Blood 10/19/2022 1:24 PM EDT 10/19/2022 1:24 PM EDT Ronda Mckeon MD POINT OF CARE TEST O AUDELIA Performing Organization Address [facility] de Phone Number [facility] [place] [address] * POCT Glucose (10/19/2022 7:15 AM EDT) POC Glucose 87 65 - 199 mg/dL [facility] Comment: Supplemental ranges: <140 mg/dL before meals <180 mg/dL all other times of the day Blood 10/19/2022 7:15 AM EDT 10/19/2022 7:15 AM EDT Ronda Mckeon MD POINT OF CARE TEST O AUDELIA Performing Organization Address [facility] de Phone Number [facility] [place] [address] documented in this encounter Visit Diagnoses Not on filedocumented in this encounter Admitting Diagnoses Diagnosis Metabolic syndrome Dysmetabolic Syndrome X documented in this encounter Administered Medications Inactive Administered Medications - up to 3 most recent administrations Medication Order MAR Action Action Date Dose Rate Site acetaminophen (Tylenol) tablet 1,000 mg 1,000 mg, [...] Given 10/20/2022 12:46 PM EDT 1,000 mg BUpivacaine (pf) (Marcaine) (2.5 mg/mL) 0.25% injection ONCE PRN, Starting on Sat10/19/22 at 1319, Until Sat10/21/22 at 1628, Intra-Operative (Intra-Procedure), Routine Given 10/19/2022 1:19 PM EDT 30 mLs 19- Surgical Site celecoxib (CeleBREX) capsule 200 mg 200 mg, [...] weight of tube = 37.5 grams.), Routine insulin lispro (HumaLOG;Admelog) (100 unit/mL) subcutaneous injection [...] Given 10/19/2022 5:32 PM EDT 1 Units lactated ringers infusion 75 mL/hr, Intravenous, CONTINUOUS, [...] 1:08 PM EDT 4 mg oxyCODONE (Roxicodone) tablet 5 mg 5 [...] Sat10/19/22 at 1400, Until Sat10/21/22 at 1628, Nausea, Vomiting, For nausea please [...] Wanda Guzman RN)2342 (Given - Provider: Geetha Navas, MEGAN) 0559 (Given - Provider: Geetha Navas RN) acetaminophen (Tylenol) tablet 1,000 mg (COMPLETED) 1,000 mg, Oral, ONCE, 1 dose, On 10/19/22 at 0745, Maximum dose of acetaminophen is [...] Navas RN)1200 (Not Given - Provider: Nakul Rodríguez, MEGAN - Reason: Patient/family refused) celecoxib (CeleBREX) capsule 200 mg 200 mg, Oral, 2 TIMES DAILY, First dose (after last modification) on 10/20/22 at 1330, Until Discontinued, Administer starting post-op day one. Open capsule and administer all at once. Ok to sprinkle contents of capsule on applesauce-give immediately., Routine 1435 (Given - Provider: Rozina Ahuja RN)2039 (Given - Provider: Geetha Navas RN) 0818 (Given - Provider: Nakul Rodríguez, MEGAN) docusate sodium (Colace) capsule 100 mg 100 mg, Oral, 2 TIMES DAILY, First dose on 10/20/22 at 2100, Until Discontinued, Open capsule and sprinkle over liquid, Routine 2039 (Given - Provider: Geetha Navas RN) 0818 (Given - Provider: Nakul Rodríguez, RN) enoxaparin (Lovenox) (40 mg/0.4 mL) subcutaneous [...] Discontinued, Routine 1006 (Given - Provider: Rozina Ahuja RN)2039 (Given - Provider: Geetha Navas, MEGAN) 0818 (Given - Provider: Nakul Rodríguez, RN) ketorolac (Toradol) (30 mg/mL) injection 30 mg (COMPLETED) 30 mg, Intravenous, ONCE, 1 dose, On Sat10/19/22 at 1415, PACU Recovery, Routine 1356 (Given - Provider: Wanda Guzman RN) levothyroxine (Synthroid) tablet 50 mcg 50 mcg, Oral, EVERY MORNING, First dose on 10/20/22 at 0730, Until Discontinued, Routine 0658 (Given - Provider: Geetha Navas, MEGAN) 0624 (Given - Provider: Geetha Navas, MEGAN) metFORMIN (Glucophage) tablet 1,000 mg 1,000 mg, Oral, 2 TIMES DAILY, First dose on 10/20/22 at 0900, Until Discontinued, Okay to crush and give with liquids, Routine 1006 (Given - Provider: Rozina Ahuja, MEGAN)2039 (Given - Provider: Geetha Navas, MEGAN) 0818 (Given - Provider: Nakul Rodríguez, MEGAN) ondansetron (pf) (Zofran) (2 mg/mL) injection 4 mg 4 mg, Intravenous, EVERY 8 HOURS SCHEDULED, First dose on 10/20/22 at 0745, Until Discontinued, For nausea please use ondansetron as the first choice; prochlorperazine as a second choice; promethazine as a third choice. Call provider if not effective. 0658 (Given - Provider: Geetha Naavs, RN)1308 (Given - Provider: Rozina Ahuja, MEGAN)2039 (Given - Provider: Geetha Navas, MEGAN)220 (Not Given - Provider: Geetha Navas RN - Reason: See comment - Comment: Given at 2039) 0624 (Given - Provider: Geetha Nvaas RN) pantoprazole (Protonix) injection 40 mg 40 [...] 0818 (Given - Provider: Nakul Rodríguez, MEGAN) sodium chloride 0.9 % (flush) (BD PosiFlush Normal Saline 0.9) flush 5 mL 5 mL, Intravenous, 2 TIMES DAILY, First dose on 10/20/22 at 0900, Until Discontinued, Recovery (Recovery-Hospital Unit), Routine 0900 (Not Given - Provider: Rozina Ahuja RN - Reason: See comment - Comment: iv infusing)2040 (Given - Provider: Geetha Navas, MEGAN) 0820 (Given - Provider: Nakul Rodríguez, MEGAN) Continuous Medication Order 10/19/2022 10/20/2022 10/21/2022 lactated ringers infusion (CANCELED) 1,000 mL, at 100 mL/hr, Intravenous, CONTINUOUS, Starting on Sat10/19/22 at 0745, Until Sat10/19/22 at 1739, Day of Surgery (Day of Procedure) 0831 (New Bag - Provider: Renetta Mandujano, MEGAN) lactated ringers infusion (CANCELED) 1,000 mL, at 125 mL/hr, Intravenous, CONTINUOUS, Starting on 10/19/22 at 1430, Until 10/20/22 at 1254 1411 (New Bag - Provider: Wanda Guzman, MEGAN)2130 (New Bag - Provider: Geetha Navas, RN) [...] 0.25% injection (CANCELED) ONCE PRN, Starting on 10/19/22 at 1319, Until 10/21/22 at 1628, Intra-Operative [...] PRN, Starting on Sat10/19/22 at 1326, Until 10/19/22 at 1739, Pain, For Mild to Moderate [...] hours., Routine 1732 (Given - Provider: Wanda Guzman, MEGAN) lidocaine (Xylocaine) 1% (10 mg/mL) injection 3 mg 3 mg (0.3 mL), Subcutaneous, ONCE PRN, 1 dose, Starting on 10/20/22 at 0645, Until 10/21/22 at 1628, for discomfort with PIV insertion, Recovery (Recovery-Hospital Unit), Routine oxyCODONE (Roxicodone) (1 mg/mL) oral liquid 5 mg (CANCELED) 5 mg, Oral, EVERY 4 HOURS PRN, Starting on 10/19/22 at 1400, Until 10/20/22 at 0842, Pain, [...] effective., Routine 1451 (Given - Provider: Wanda Guzman, MEGAN) promethazine (Phenergan) (25 mg/mL) injection 6.25 mg 6.25 mg, Intravenous, EVERY 4 HOURS PRN, Nausea, Starting on Sat10/19/22 at 1400, Until 10/21/22 [...] Routine documented in this encounter Care Teams Sales Order Coordinator Relationship Specialty Start Date End Date Carolynn Wisdom APRN [address] [place] [address] PCP - General Family Medicine 03/08/20 documented as of this encounter
--- OUTSIDE RECORDS SUMMARY | 2024-01-17 18:05 | XMS_ITS | Encounter Summary ---
Author Organization [facility] Address [facility] [place] [address] Care Team Providers Care Integrative Medicine Physician Name Role Phone Carolynn Wisdom APRN Primary Care Provider [phone] Reason for Visit * Reason Comments Follow-up Encounter Details Date Type Department Care Team (Late st Contact Info) Description 03/30/2022 3:00 PM EDT TH Visit (TeleHealth) Dermatology at [facility] [address] [place] [address] Lisa Vasquez MD [facility] [place] [address] Inverse psoriasis; High risk medication use Social [...] as of this encounter Progress Notes * Lisa Vasquez - 03/30/2022 3:00 PM EDT Images from the original note were not included. DEPARTMENT OF DERMATOLOGY Medical Dermatology Clinic Provider: Lisa Vasquez MD Patient's preferred name Melinda Preferred contact method for results [x]Phone []myD-H []Letter Detailed phone message OK? Yes Are there any other people with whom we may discuss your care? 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 Patient is being seen via [facility] for a follow up of psoriasis. - She says that her skin is okay but she will sometimes experience flares in between doses Last visit at Dermatology: 08/18/2021 Last visit with this provider: 08/18/2021 Medications: Reviewed in eD-H Allergies: Reviewed in eD-H Skin Examination: No physical examination completed due to nature of telephone visit. Assessment/Plan #. Inverse Psoriasis, improving - Patient reports improvement, although no physical examination completed due to nature of telephone visit. -Discussed having Stelara improved at increased dose (90 mg/ml) q12 weeks or switching to Skyrizi. Discussed that we would be unable to likely do increased frequency of dosing. Patient would like to Stelera at this time, consider Skyrizi in the future if no improvement. - Continue Rx: ustekinumab (Stelara) 90 mg/mL: Inject 1 mL subcutaneously Q12 Weeks (pending insurance approval at increased dose) - Continue Rx: calcipotriene (Dovonex) 0.005% cream: Apply twice daily to the affected areas on thetrunk and extremities during the weekdays - Continue Rx: clobetasol 0.05% ointment: Apply twice daily to the affected areas on the trunk and extremities on the weekends. - Continue Rx: clobetasol 0.05% solution: Apply twice daily to the scalp for 2 weeks, take one weekoff, and repeat as needed. - Labs: CBC, CMP, and Quant-TB Gold (to be done externally at [facility], faxed today by Melida) Other: ??? N/A RTC: 6 months for follow up of psoriasis []Note routed to social secretary [x]Recall placed in scheduling system []Appointment scheduled at checkout Scribe attestation: Hodan Dougherty CMA has performed the documentation for this encounter in the presence of and acting as a scribe for Lisa Vasquez MD. I performed the above scribed service and agree with the accuracy of the documentation in this encounter. Reviewed and signed by: Lisa Vasquez MD Dermatology [facility] Patient seen and evaluated with staff skein tier: Lety Mcdonnell MD Dermatology [facility] * Lety Mcdonnell MD - 03/30/2022 3:00 PM EDT I directly supervised the resident during this office visit. The resident physician presented the history and physical exam to me. I then saw and examined this patient with the resident. We reviewed the history and pertinent details and I confirmed the physical exam findings. I agree with the details of the history and physical exam as documented in the resident physician's note. Lety Mcdonnell MD Staff Physician [facility] documented in this encounter Plan of Treatment Upcoming Encounters Date Type Department Care Team (Late st Contact Info) Description 02/01/2025 2:15 PM EDT Office Visit Dermatology at [facility] [address] [place] [address] Regina Rivas MD [facility] [address] [place] [address] documented as of this encounter Goals Goal [...] on track(2021 11:37 AM EDT) Michelle Tai, MOTH PROOFER Note: Mindfulness/deep breathing practice to reduce cortisol -try for at least 10 minutes a day sleep Lifestyle On track(2021 11:37 AM EDT) Michelle Tai, CANDE Note: Continue to work with sleep at [facility] Goal 7 hours of sleep [...] medications documented in this encounter Care Teams Integrative Medicine Physician Relationship Specialty Start Date End Date Carolynn Wisdom APRN [address] [place] [address] [address] [facility] [address] [place] [address] PCP - General Family Medicine 03/08/20 documented as of this encounter
--- OUTSIDE RECORDS SUMMARY | 2024-01-17 18:05 | XMS_ITS | Encounter Summary ---
Author Organization [facility] Address [facility] [place] [address] Care Team Providers Care Ammonia Worker Name Role Phone Carolynn Wisdom FINANCIAL AID MANAGER Primary Care Provider Encounter Details Date Type Department Care Team (Late st Contact Info) Description 03/08/2022 Refill Dermatology at [facility] [address] [place] [address] Lisa Vasquez MD [facility] [address] [place] [address] Social History Tobacco Use Types Packs/Day Years [...] as of this encounter Miscellaneous Notes * Addendum Note - Keysha Garcia RPH - 05/01/2022 8:26 AM EDTAddended by: KEYSHA GARCIA on: 05/01/2022 08:26 AM Modules accepted: Orders documented in this encounter Plan of Treatment Upcoming Encounters Date Type Department Care Team (Late st Contact Info) Description 02/01/2025 2:15 PM EDT Office Visit Dermatology at [facility] [address] [place] [phone] Regina Rivas MD [facility] [address] [place] [address] documented as of this encounter Goals Goal [...] Note: Continue to work with sleep at [facility] Goal 7 hours of [...] on filedocumented in this encounter Care Teams Ammonia Worker Relationship Specialty Start Date End Date Carolynn Wisdom APRN [address] [place] [address] PCP - General Family Medicine 03/08/20 documented as of this encounter
--- OUTSIDE RECORDS SUMMARY | 2024-01-17 18:05 | XMS_ITS | Encounter Summary ---
Author Organization [facility] [place] [address] Care Team Providers Care Manager Maintenance Name Role Phone Carolynn Wisdom HYDROGRAPHY TEACHER Primary Care Provider Reason for Visit * Reason Comments Medication Management Encounter Details Date Type Department Care Team (Late st Contact Info) Description 04/02/2022 Specialty [place] [address] Christin Connors V, [facility] Social History Tobacco Use Types Packs/Day Years [...] as of this encounter Progress Notes * Christin Connors RPH - 04/02/2022 4:07 PM EDT Clinical Management Plan: Refill Specialty Pharmacy Consultation; Christin Connors RPH Comprehensive Medication Management (CMM) Melinda Goncalves is a 62 y.o. (1960) [...] Known Allergies Medication Reconciliation Discrepancies (compared to eD med list) No Specialty Pharmacy Refill Questionnaire Refill Questionnaire 04/02/2022 What is the name of the specialty medication you are refilling? Stelara Are you taking any new medications? No Any new medical condition? No Any new allergies? No Any new side effects that are bothersome? No Please explain - What date will you need this fill by? 04/10/2022 Adherence: Any missed doses? No Patient understands no changes to current drug regimen were made. Christin Connors RPH 04/02/22 4:08 PM documented in this encounter Plan of Treatment Upcoming Encounters Date Type Department Care Team (Late st Contact Info) Description 02/01/2025 2:15 PM EDT Office Visit Dermatology at [address] [place] [address] [facility] [place] [address] documented as of this encounter Goals Goal [...] to work with sleep at [facility] Goal 7 hours of sleep [...] filedocumented in this encounter Care Teams Manager Maintenance Relationship Specialty Start Date End Date Carolynn Wisdom APRN [address] [place] [address] PCP - General Family Medicine 03/08/20 documented as of this encounter
--- OUTSIDE RECORDS SUMMARY | 2024-01-17 18:05 | XMS_ITS | Encounter Summary ---
Author Organization [facility] Address [facility] [place] [address] Care Team Providers Care Sales Representative Education Courses Name Role Phone MelodieCarolynn judd CANDE Primary Care Provider Encounter Details Date Type Department Care Team (Latest Contact Info) Description 03/20/2022 12:00 PM EDT TH Visit (TeleHealth) Weight and Wellness at [address] [address] Susan Mohan, PhD [place] [address] Eating disorder, unspecified type Social History Tobacco [...] Progress Notes * Susan Mohan, PhD - 03/20/2022 12:00 PM EDT [facility] PSYCHOLOY FOLLOW UP NOTE [facility] [address] [address] Dept: [phone] 03/20/2022 12:03 PM Melinda Goncalves is a 62 y.o. [...] visit they were located at home in [place]. Melinda Goncalves is aware that for any urgent matter they can call [phone].. RECOMMENDATION BASED ON PSYCHOLOGICAL EVALUATION YELLOW - Based on the information gathered during this assessment, Melinda Goncalves would benefit from additional health behavior change before she is ready to proceed with surgery. Specifically, Melinda would benefit from the following to assist with preparing for bariatric surgery: ?? Continue engaging in health promoting behaviors ?? Encouraged Melinda to reach out to the bariatric surgery program re: CPAP use ?? Discussed ways for Melinda to connect with a mental health provider ?? Stop skipping meals - use the [...] The follow up plan is as follows: 3 wk f/u. Planned for Melinda to look into establishing care with a mental health provider. Will follow up on behavior changes at the next visit. SUMMARY The decision noted above is based [...] indicates updated information from the previous evaluation: PROBLEM EATING BEHAVIORS 8/9 History of nighttime eating (i.e., skipping daytime [...] eating, last episode: Not since previous eval 03/20/2022: Was not assessed due to time POST SURGERY EATING HABIT CHANGES AND READINESS [...] this rate for about 2 week(s). ??? Following a consistent meal pattern: Aware of the need and practicing about 60% of the time and has been practicing at this rate for about 1 month(s). ??? Regular exercise: Aware of the need of regular exercise and not regularly - job can be active - takes stairs at work,etc... Will be starting yoga this week. 03/20/2022: Was not assessed due to time MENTAL HEALTH UPDATE: 03/20/2022: Melinda reported that she stopped one of her jobs - the very stressful one - which she is happy about. Melinda reported that since making this decision, her overall wellbeing has improved - e.g., riding more regularly now. Discussed ways Melinda can adjust to this life change. Validated the fatigue associated with health management. Reviewed plan to connect with a mental health provider. Melnida shared that she is not certain she wants to start CPAP treatment even thought it was recommended. Processed Melinda's concerns re: CPAP use. 02/06/2022 Melinda reported that she is ok - [...] work in her life. ADHERENCE AND ATTENDANCE 03/20/2022: Sleep apnea: completed testing and does not want to start CPAP. 02/06/2022 Sleep Apnea? Awaiting home sleep study Medication [...] 2:15 PM EDT Office Visit Dermatology at [facility] [address] [place] [address] Regina Rivas MD [facility] [address] [place] [address] documented as of this encounter Goals Goal [...] Lifestyle On track(2021 11:37 AM EDT) No Leonid, Michelle L, GM Note: Continue to work with sleep at [facility] Goal 7 hours of sleep [...] type documented in this encounter Care Teams Sales Representative Education Courses Relationship Specialty Start Date End Date Carolynn Wisdom APRN [address] [place] [address] PCP - General Family Medicine 03/08/20 documented as of this encounter
--- OUTSIDE RECORDS SUMMARY | 2024-01-17 18:05 | XMS_ITS | Encounter Summary ---
Author Organization [facility] [place] [address] Care Team Providers Care Expanding Machine Operator Name Role Phone Carolynn Wisdom CANDE Primary Care Provider Encounter Details Date Type Department Care Team (Late st Contact Info) Description 10/03/2022 3:55 PM EDT Laboratory Appointment Lab [address] [place] [address] Social History Tobacco Use Types Packs/Day Years [...] 2:15 PM EDT Office Visit Dermatology at [facility] [address] [place] [address] Regina Rivas MD [facility] [place] [address] documented as of this encounter Goals Goal [...] track(2021 11:37 AM EDT) No Michelle Jaquez, CORPORATE QUALITY MANAGER Note: Mindfulness/deep breathing practice to reduce cortisol -try for at least 10 minutes a day sleep Lifestyle On track(2021 11:37 AM EDT) No Michelle Jaquez, CANDE Note: Continue to work with sleep at [facility] Goal 7 hours of sleep nightly. Recommend consistent sleep and wake times, avoid electronics within one hour of sleep time movement Lifestyle No Michelle Jaquez, CORPORATE QUALITY MANAGER Note: Exercise goal is 150 -300 min [...] Procedure Name Priority Date/Time Associated Diagnosis Comments PTH Routine 10/03/2022 4:02 PM EDT HEMOGRAM Routine 10/03/2022 4:02 PM EDT VITAMIN B1, WHOLE BLOOD Routine 10/03/2022 4:02 PM EDT IRON AND TIBC Routine 10/03/2022 4:02 PM EDT VITAMIN D, 25-HYDROXY Routine 10/03/2022 4:02 PM EDT FOLATE, SERUM Routine 10/03/2022 4:02 PM EDT FERRITIN Routine 10/03/2022 4:02 PM EDT VITAMIN B12 Routine 10/03/2022 4:02 PM EDT COMPREHENSIVE METABOLIC PANEL (NON-FASTING) Routine 10/03/2022 4:02 PM EDT documented in this encounter Results * Vitamin D, 25-Hydroxy (10/03/2022 4:02 PM EDT) 25-OH Vit D Total 38 21 - 100 ng/mL [facility] 25-OH Vit D Interp Sufficient [facility] Blood Venous Draw / Unknown 10/03/2022 4:02 PM EDT 10/03/2022 4:49 PM EDT Narrative Resulting Agency Comment Spec In Lab Marjorie Holman CORPORATE QUALITY MANAGER CHEMISTRY ORDERA BLES [facility] [place] [address] * Vitamin B12 (10/03/2022 4:02 PM EDT) Pathologist [facility] Vitamin B-12 273 232 - 1,245 pg/mL [facility] Blood Venous Draw / Unknown 10/03/2022 4:02 PM EDT 10/03/2022 4:49 PM EDT Narrative Resulting Agency Comment Spec In Lab Marjorie Holman APRN CHEMISTRY ORDERA BLES Performing Organization Address [facility]/ZIP Co de Phone Number [facility] [place] [address] * Vitamin B1, whole blood (10/03/2022 4:02 PM EDT) [facility] Vit B1 Lvl WB 155 70 - 180 nmol/L [facility] Comment: ADDITIONAL INFORMATION This test was developed and its performance characteristics determined by [facility] in a manner consistent with CLIA requirements. This test has not been cleared or approved by the U.S. Food and Drug Administration. Test Performed by: [facility] - [address] [address] Manager Analytical: Jona Marti M.D. Ph.D.; CLIA# [id number] Blood Venous Draw / Unknown 10/03/2022 4:02 PM EDT 10/04/2022 10:44 AM EDT Narrative Resulting Agency Comment Spec In Lab Marjorie Holman APRN CHEMISTRY ORDERA BLES Performing Organization Address City/[facility]/ZIP Co de Phone Number [facility] [place] [address] * PTH (10/03/2022 4:02 PM EDT) [facility] PTH 26 15 - 65 pg/mL [facility] Blood Venous Draw / Unknown 10/03/2022 4:02 PM EDT 10/03/2022 4:50 PM EDT Narrative Resulting Agency Comment Spec In Lab Marjorie Holman APRN CHEMISTRY ORDERA BLES [facility] [place] [address] * Hemogram (10/03/2022 4:02 PM EDT) WBC 7.6 4.0 - 9.5 x10(3)/[facility] RBC 4.42 4.00 - 5.21 x10(6)/[facility] Hemoglobin 12.7 11.7 - 15.5 g/dL [facility] Hematocrit 37.9 35.7 - 45.8 % [facility] MCV 85.7 82.6 - 94.4 [facility] MCH 28.7 27.1 - 32.0 pg [facility] MCHC 33.5 31.7 - 35.0 g/dL [facility] Platelets 291 145 - 357 x10(3)/[facility] RDWSD 41.4 37.0 - 46.0 [facility] RDWCV 13.2 11.5 - 14.1 % [facility] MPV 10.6 7.6 - 12.9 [facility] nRBC % Auto 0.0 % [facility] nRBC Abs Auto 0.000 0.000 - 0.000 x10(3)/[facility] Blood Venous Draw / Unknown 10/03/2022 4:02 PM EDT 10/03/2022 4:50 PM EDT Narrative Resulting Agency Comment Spec In Lab Marjorie Holman APRN HEMATOLOGY ORDER TING Performing Organization Address City/[facility]/ZIP Co de Phone Number [facility] [place] [address] * (ABNORMAL) Iron and TIBC (10/03/2022 4:02 PM EDT) [facility] Iron 55 30 - 150 mcg/dL [facility] TIBC 246(L) 250 - 450 mcg/dL [facility] Iron Saturation 22 20 - 50 % [facility] Blood Venous Draw / Unknown 10/03/2022 4:02 PM EDT 10/03/2022 4:49 PM EDT Narrative Resulting Agency Comment Spec In Lab Marjorie Holman APRN CHEMISTRY ORDERA BLES Performing Organization Address City/[facility]/ZIP Co de Phone Number [facility] [place] [address] * Folate, serum (10/03/2022 4:02 PM EDT) [facility] Folate Lvl >20.0 4.8 - 24.2 ng/mL [facility] Blood Venous Draw / Unknown 10/03/2022 4:02 PM EDT 10/03/2022 4:49 PM EDT Narrative Resulting Agency Comment Spec In Lab Marjorie Holman APRN CHEMISTRY ORDERA BLES Performing Organization Address [facility] Co de Phone Number [facility] [place] [address] * Ferritin (10/03/2022 4:02 PM EDT) [facility] Ferritin 255 30 - 400 ng/mL [facility] Comment: Pediatric reference ranges not verified at [facility], interpret with caution. Reference ranges for females greater than 50 years of age approach values for men, i.e., 30-400 ng/mL. Blood Venous Draw / Unknown 10/03/2022 4:02 PM EDT 10/03/2022 4:49 PM EDT Narrative Resulting Agency Comment Spec In Lab Marjorie Holman APRN CHEMISTRY ORDERA BLES [facility] [place] [address] * Comprehensive metabolic panel (non-fasting) (10/03/2022 4:02 PM EDT) Glucose Lvl 92 65 - 199 mg/dL [facility] Comment:Diabetes: >=200 mg/d L plus symptoms BUN 10 8 - 18 mg/dL [facility] Creatinine 0.74 0.70 - 1.20 mg/dL [facility] Sodium 140 135 - 145 mmol/L [facility] Potassium 3.8 3.5 - 5.0 mmol/L [facility] Comment: Please note: ??Patients with WBC >100,000 may have falsely elevated Potassium levels. ??For accurate Potassium quantification in these patients send serum separator tube (gold top) for subsequent determinations. ??Contact the Clinical Chemistry Laboratory if there are any questions. Chloride 102 98 - 107 mmol/L [facility] CO2 25 22 - 31 mmol/L [facility] Anion Gap 13 5 - 15 mmol/L [facility] Calcium 10.0 8.5 - 10.5 mg/dL [facility] Total Protein 7.2 6.1 - 8.0 g/dL [facility] Albumin 4.3 3.2 - 5.2 g/dL [facility] AST 22 0 - 30 unit/L [facility] ALT 20 0 - 30 unit/L [facility] Alk Phos 59 35 - 105 unit/L [facility] Total Bilirubin 0.4 0.2 - 1.3 mg/dL [facility] Estimated GFR 92 >=60 mL/min/1. 73 m?? [facility] Comment: This patient's estimated GFR was [...] and symptoms in addition to eGFR. Blood Venous Draw / Unknown 10/03/2022 4:02 PM EDT 10/03/2022 4:49 PM EDT Narrative Resulting Agency Comment Spec In Lab Marjorie Holman CORPORATE QUALITY MANAGER CHEMISTRY ORDERA BLES [facility] [place] [address] documented in this encounter Visit Diagnoses Not on filedocumented in this encounter Care Teams Expanding Machine Operator Relationship Specialty Start Date End Date Carolynn Wisdom APRN [address] [place] [address] PCP - General Family Medicine 03/08/20 documented as of this encounter
--- OUTSIDE RECORDS SUMMARY | 2024-01-17 18:05 | XMS_ITS | Encounter Summary ---
Author Organization [facility] Address [facility] [place] [address] Care Team Providers Care Stamp Collector Name Role Phone Carolynn Wisdom APRN Primary Care Provider Encounter Details Date Type Department Care Team (Late st Contact Info) Description 10/01/2022 2:20 PM EDT Office Visit Dermatology at [facility] [address] [place] [address] Lisa Vasquez MD [facility] [place] [address] Inverse psoriasis Social History Tobacco Use Types Packs/Day Years [...] encounter Progress Notes * Lisa Vasquez - 10/01/2022 2:20 PM EDT Images from the original note [...] Melinda Goncalves is a 62 y.o. Patient returns to clinic today for a Psoriasis follow up. - Patient reports questions about Rx Stelara - Patient reports after 10 weeks after ingections the rash reappears - Active rash; groin, and under the breast. Last visit at Dermatology: 03/30/2022 Last visit with this provider: 03/30/2022 Medications: Reviewed in eD-H Allergies: Reviewed in eD-H Skin Examination: Focused skin examination of the breasts, groin, axillae was normal with the exception of the findings below. Assessment/Plan # Inverse Psoriasis, improving -??In bilateral axillae and under bilateral breasts are well-demarcated bright pink shiny plaques with slight overlying scale. Erythematous plaques in scalp and conchalbowls. BSA: ~3%,??improved from previous - previously treated with Humira but was not well tolerated, she has been tolerating the Stelara well at this point. 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 PLAN: -Continue ??Rx: Calcipotriene 0.005% cream apply to affected areas BID during the week , we will try to get Rx: Protopic ointment covered to replace the calcipotriene on the weekdays -Use Rx: Clobetasol 0.05% ointment use BID on weekends only -- recommended moisturizing dry areas with plain vaseline -- continue Rx: Clobetasol solution??Apply topically to the scalp twice a day for two weeks then take a week off and repeat - continue Rx: Stelara 90mg SC Q12 weeks - recommended T-nghia shampoo??alternating with regular shampoo - Patient will have labs faxed over (CBC, CMP). Quant gold negative 07/23 - Discussed Rx Otezla and side effects. Patient elects not to proceed. Other: ??? N/A RTC: 6 months for Psoriasis follow up. []Note routed to service secretary [x]Recall placed in scheduling system []Appointment scheduled at checkout Scribe attestation: ISAI Medley has performed the documentation for this encounter in the presence of and acting as a scribe for Lisa Vasquez MD. I performed the above scribed service and agree with the accuracy of the documentation in this encounter. Reviewed and signed by: Lisa Vasquez MD Dermatology [facility] Patient seen and evaluated with staff agency owner: Leonila Suarez MD Dermatology [facility] * Leonila Suarez MD - 10/01/2022 2:20 PM EDT I was the supervising physician working with dermatology resident Dr. Vasquez in the dermatology clinic during this patient visit. The level of resident supervision for this patient visit was indirectsupervision with direct supervision immediately available. (definition: [facility] Policy Statement on Graduate Medical Education, Supervision of Graduate Medical Trainees) I was immediately available to Dr. Vasquez for questions and discussion regarding this visit. I have reviewed the encounter note details and level of service. LEONILA SUAREZ MD Staff Physician documented in this encounter Plan of Treatment Upcoming Encounters Date Type Department Care Team (Late st Contact Info) Description 02/01/2025 2:15 PM EDT Office Visit Dermatology at [facility] [address] [place] [address] Regina Rivas MD [facility] [place] [address] documented as of this encounter [...] psoriasis documented in this encounter Care Teams Stamp Collector Relationship Specialty Start Date End Date Carolynn Wisdom APRN [address] [place] [address] PCP - General Family Medicine 03/08/20 documented as of this encounter
--- OUTSIDE RECORDS SUMMARY | 2024-01-17 18:05 | XMS_ITS | Encounter Summary ---
Author Organization [facility] [place] [address] Care Team Providers Care Supply Chain Logistics Manager Name Role Phone Reginaldomarcus Carolynn CASTELLON Primary Care Provider Reason for Visit * [...] EGD, UPPER GI ENDOSCOPY Ronda Mckeon MD [facility] [place] [address] [facility] Referral ID Status Reason Start Date Expiration Date Visits Re quested Visits Authorized [id number] 1 1 Encounter Details Date Type Department Care Team (Late st Contact Info) Description 10/19/2022 9:13 AM EDT Anesthesia [place] [phone] Delonte Narvaez [facility] [place] [address] Anesthesia Record Procedure Summary Procedure Name Responsible Anesthesiologist Anesthesia Start Time Anesthesia Stop Time @LAPAROSCOPIC GASTROPLASTY W/ DAVID-EN-Y CONSTRUCTION (WRVU 29.4) (Abdomen) Delonte Narvaez, DO 10/19/22 0913 10/19/22 1348 Events Date Time Event Comment 10/19/2022 0830 0913 AN Verify 0913 Start 0913 An Start Data 0923 An Induction 0925 An Intubation 0927 Anesthesia Ready 0955 Break/Relief In I assumed ca re for Break Relief before which we: 1. Identified the patient 2. Identified the responsible provider(s) 3. Reviewed the pertinent medical history 4. Discussed the surgical plan and course 5. Reviewed intra-op anesthesia management and issues during anesthesia 6. Set expectations for the relief (and/or post-procedure) period 7. Allowed opportunity for questions and acknowledgement of understanding Sidra Sosa CRNA 1017 Break/Relief Out 1104 an allie now OG tube removed . Nothing present in esophagus. 1340 Extubation/LMA Out 1345 an stop data 1348 Recovery or ICU Handoff Ayanna ent care was transferred to the destination unit staff after review of the patient's medical history, current anesthetic/surgical status and plan, according to the Provider Handoff Checklist. 1348 Stop Meds Name Total Midazolam 2 mg IV Lidocaine 100 mg Propofol 300 mg Dexmedetomidine 24 mcg Rocuronium 160 mg Ondansetron 8 mg Dexamethasone 4 mg Esmolol 100 mg ceFAZolin 2 g HYDROmorphone 2 mg/mL 0.6 mg Sugammadex 200 mg Lactated Ringers 2,500 mL * Agents Name O2 Air N2O Sevoflurane (et) * Blood No blood administrations on file. Lines, Drains, and Airways Type Details Placement Removal Incision 10/19/22; 0955; abdo men; laparoscopic punctures (specify) (Multiple lap port sites) 10/19/22 0955 by Kaleb Freeman, RN (RETIRED) Peripheral IV Line - Single Lumen 10/19/22; 0728; metacarpal vein (top of hand), right; [id number] catheter system; Anatomical Landmarks; 20 gauge; Toñito Barfield RN; distraction; 10/21/22; 1101 10/19/22 0728 by Renetta Mandujano RN 10/21/22 110 by Citlaly Stephens LNA ETT Mask Ventilation: Ea sy (1); ETT Type: Cuffed; ETT Size: 7 mm; Mac Blade: 3; Notes: Asleep, Pre-O2, Stylette; Attempts: 1; Laryngoscopy Grade: 2; ETT Placement Verified By: Auscultation, Capnometry, Visual; Secured at Teeth: 21 cm; Inserted by: Solange; Removal Date: 10/19/22; Removal Time: 1340 10/19/22 0937 by Delonte Narvaez DO 10/19/22 1340 by Delonte Narvaez DO Urethral Catheter 10/19/22; 0955; Surg zev longer than 2 hours; indwelling catheter with core temperature probe; latex; 14; inserted at this facility; 1; 10; 10; 10/19/22; 1327 10/19/22 0955 by Kaleb Freeman RN 10/19/22 132 by Kaleb Freeman, RN documented in this encounter Social History Tobacco Use Types Packs/Day Years [...] on file documented as of this encounter OR Notes * Anesthesia Postprocedure Evaluation - Delonte Narvaez DO - 10/19/2022 2:26 PM EDT Department of Anesthesiology Post-procedure Note Patient: Melinda Goncalves Procedure Summary Date: 10/19/22 Room / Location: [facility] OR [address] [place] [address] MAIN OR Anesthesia Start: 912 Anesthesia Stop: 1347 Procedures: @LAPAROSCOPIC GASTROPLASTY W/ DAVID-EN-Y CONSTRUCTION (WRVU 29.4) (Abdomen) EGD, UPPER GI ENDOSCOPY (WRVU 2.09) Diagnosis: (Morbid Obesity) Surgeons: Ronda Mckeon MD Responsible Provider: Delonte Narvaez DO Anesthesia Type: general ASA Status: 2 All Anesthesia Providers: Anesthesiologist: Delonte Narvaez DO Vitals Value Taken Time BP 116/54 10/19/22 1415 Temp 37.2 ??C (99 ??F) 10/19/22 1345 Pulse 63 10/19/22 1425 Resp 18 10/19/22 1425 SpO2 91 % 10/19/22 1425 Pain Level 0 10/19/22 1345 Vitals shown include unvalidated device data. Patient Location: PACU/[facility] Level of Consciousness: Conscious but Sleepy Pain Management: Satisfactory Analgesia PONV: None Cardiovascular Status: At Baseline and Hemodynamically Stable Respiratory Status: At Baseline and Room Air Postoperative Fluid Status: Intravascular EUvolemia Possible Anesthetic Complications: NONE apparent at time of evaluation Final Primary Anesthesia Type: General (The anesthetic type performed was the same as planned.) Comments: Delonte Narvaez DO * Anesthesia Preprocedure Evaluation - Delonte Narvaez DO - 10/19/2022 8:30 AM EDT Pre-Anesthesia Evaluation for: Melinda Goncalves a 62 y.o. female. Procedure(s): @LAPAROSCOPIC GASTROPLASTY W/ DAVID-EN-Y CONSTRUCTION (WRVU 29.4) EGD, UPPER GI ENDOSCOPY (WRVU 2.09) Patient Active Problem List Diagnosis Date Noted ??? HEATHER (obstructive sleep apnea) 07/11/2022 ??? Hyperlipidemia 08/08/2021 ??? Inverse psoriasis 08/08/2021 ??? Migraine headache with aura 08/08/2021 ??? Subclinical hypothyroidism 08/08/2021 ??? Transient vision disturbance of left eye 08/08/2021 ??? Type 2 diabetes mellitus 08/08/2021 ??? Class 2 severe obesity due to excess calories with serious comorbidity and body mass index (BMI) of 38.0 to 38.9 in adult 08/08/2021 Past Medical History: Diagnosis Date ??? Hypothyroid ??? HEATHER (obstructive sleep apnea) ??? Psoriasis ??? Type 2 diabetes mellitus Past Surgical History: Procedure Laterality Date ??? APPENDECTOMY Social History Tobacco Use ??? Smoking status: Former Packs/day: 0.25 Years: 3.00 Pack years: 0.75 Types: Cigarettes Quit date: 12/31/1989 Years since quittin.8 ??? Smokeless tobacco: Never Substance Use Topics ??? Alcohol use: Yes Alcohol/week: 3.0 standard drinks Types: 1 Glasses of wine, 2 Cans of beer per week Social History Substance and Sexual Activity Drug Use Never No Known Allergies Medications: MAR and/or home medications have been reviewed. Physical Exam: Preprocedure Vitals Current as of 10/19/22 0830 BP: 109/69 Pulse: 60 Resp: 16 SpO2: 98 Temp: 36.3 ??C (97.3 ??F) Height: 160 cm (5' 3) (10/19/22) Weight: 99.8 kg (220 lb) (10/19/22) BMI: 38.97 IBW: 52.4 kg (115 lb 7.7 oz) Last edited 10/19/22 0709 by AD Airway Assessment: Mallampati: II Cardiovascular Assessment: system normal Pulmonary Assessment: pulmonary exam normal Dental Assessment: Misc Assessment: Last Filed Perioperative Cognitive Screening None Anesthesia Plan: ASA 2 general, 62 yo female s/f gastric bypass DM well controlled, BG ~85 today NPO Plan for GA w/ ETT Informed Consent: Anesthesia Screening documented in this encounter Plan of Treatment Upcoming Encounters Date Type Department Care Team (Late st Contact Info) Description 02/01/2025 2:15 PM EDT Office Visit Dermatology at [facility] [address] [place] [address] Regina Rivas MD [facility] [address] [place] [address] documented as of this encounter Goals Goal [...] Note: Continue to work with sleep at [facility] Goal 7 hours of sleep nightly. [...] Diagnoses Not on filedocumented in this encounter Administered Medications Inactive Administered Medications - up to 3 most recent administrations Medication Order MAR Action Action Date Dose Rate Site ceFAZolin (Ancef) 1 g in dextrose 5% 50 mL infusion Intravenous, PRN, Starting on Sat10/19/22 at 0940, Until Sat10/19/22 at 1348, Administer over 30 Minutes, Anesthesia Intra-op Given 10/19/2022 9:40 AM EDT 2 g dexAMETHasone (Decadron) injection Intravenous, PRN, Starting on Sat10/19/22 at 0935, Until Sat10/19/22 at 1348, Anesthesia Intra-op, Routine Given 10/19/2022 9:35 AM EDT 4 mg dexmedeTOMIDine (Precedex) (4 mcg/mL) bolus injection (Anesthsia) Intravenous, PRN, Starting on Sat10/19/22 at 1307, Until Sat10/19/22 at 1348, Anesthesia Intra-op, Routine Given 10/19/2022 1:20 PM EDT 12 mcg Given 10/19/2022 1:07 PM EDT 12 mcg esmoloL (Brevibloc) (10 mg/mL) injection Intravenous, PRN, Starting on Sat10/19/22 at 0923, Until Sat10/19/22 at 1348, Anesthesia Intra-op, Routine Given 10/19/2022 9:23 AM EDT 100 mg HYDROmorphone (Dilaudid) (2 mg/mL) multi-dose injection solution Intravenous, PRN, Starting on Sat10/19/22 at 1320, Until Sat10/19/22 at 1348, Anesthesia Intra-op, Routine Given 10/19/2022 1:28 PM EDT 0.2 mg Given 10/19/2022 1:20 PM EDT 0.4 mg lactated ringers infusion Intravenous, CONTINUOUS PRN, Starting on Sat10/19/22 at 0913, Until Sat10/19/22 at 1348, Anesthesia Intra-op New Bag 10/19/2022 9:13 AM EDT lidocaine (pf) (Xylocaine) (20 mg/mL) 2% injection syringe Intravenous, PRN, Starting on Sat10/19/22 at 0923, Until Sat10/19/22 at 1348, Anesthesia Intra-op, Routine Given 10/19/2022 9:23 AM EDT 100 mg midazolam (pf) (Versed) (1 mg/mL) multi-dose injection Intravenous, PRN, Starting on Sat10/19/22 at 0917, Until Sat10/19/22 at 1348, Anesthesia Intra-op, Routine Given 10/19/2022 9:17 AM EDT 2 mg ondansetron (pf) (Zofran) (2 mg/mL) injection Intravenous, PRN, Starting on Sat10/19/22 at 1320, Until Sat10/19/22 at 1348, Anesthesia Intra-op, Routine Given 10/19/2022 1:20 PM EDT 8 mg propofoL (Diprivan) 10 mg/mL bolus injection (Anesthesia) Intravenous, PRN, Starting on Sat10/19/22 at 0923, Until Sat10/19/22 at 1348, Anesthesia Intra-op Given 10/19/2022 1:23 PM EDT 50 mg Given 10/19/2022 9:51 AM EDT 50 mg Given 10/19/2022 9:23 AM EDT 200 mg rocuronium (Zemuron) (10 mg/mL) multi-dose injection Intravenous, PRN, Starting on Sat10/19/22 at 0923, Until Sat10/19/22 at 1348, Anesthesia Intra-op, Routine Given 10/19/2022 12:40 PM EDT 10 mg Given 10/19/2022 12:33 PM EDT 10 mg Given 10/19/2022 11:51 AM EDT 30 mg sugammadex (Bridion) 100 mg/mL injection Intravenous, PRN, Starting on Sat10/19/22 at 1331, Until Sat10/19/22 at 1348, Anesthesia Intra-op, Routine Given 10/19/2022 1:31 PM EDT 200 mg documented in this encounter Care Teams Supply Chain Logistics Manager Relationship Specialty Start Date End Date Carolynn Wisdom, [address] [place] [address] PCP - General Family Medicine 03/08/20 documented as of this encounter
--- OUTSIDE RECORDS SUMMARY | 2024-01-17 18:05 | XMS_ITS | Encounter Summary ---
Author Organization [facility] [place] [address] Care Team Providers Care Computer System Technician Name Role Phone Carolynn Wisdom GENERAL OFFICE DISPATCHER Primary Care Provider Encounter Details Date Type Department Care Team (Late st Contact Info) Description 02/27/2022 Telephone [place] [phone] Aisha Ramos Social History Tobacco Use Types [...] Telephone Encounter - Aisha Fournier - 02/27/2022 10:27 AM EDT Returned patients call had to leave message for them to return my call. ----- Message from Abby Russo sent at 02/27/2022 10:25 AM EDT ----- Regarding: FW: Bariatric Requirements ----- Message ----- From: Renetta Rasmussen Sent: 02/27/2022 10:15 AM EDT To: [facility] Nurse, # Subject: Bariatric Requirements Melinda Sim left a message requesting a call back to let her know where she stands for bariatric surgery. She has completed her sleep study. Thank you! Renetta, RN documented in this encounter Plan of Treatment Upcoming Encounters Date Type Department Care Team (Late st Contact Info) Description 02/01/2025 2:15 PM EDT Office Visit Dermatology at [facility] [address] [place] [address] Regina Rivas MD [facility] [place] [address] documented as of this encounter Goals Goal [...] track(2021 11:37 AM EDT) No Michelle Jaquez, GENERAL OFFICE DISPATCHER Note: Mindfulness/deep breathing practice to reduce cortisol -try for at least 10 minutes a day sleep Lifestyle On track(2021 11:37 AM EDT) Michelle Tai, GENERAL OFFICE DISPATCHER Note: Continue to work with sleep at [facility] Goal 7 hours of sleep nightly. Recommend consistent sleep and wake times, avoid electronics within one hour of sleep time movement Lifestyle No Michelle Jaquez, GENERAL OFFICE DISPATCHER Note: Exercise goal is 150 -300 min [...] on filedocumented in this encounter Care Teams Computer System Technician Relationship Specialty Start Date End Date Carolynn Wisdom APRN [address] [place] [address] PCP - General Family Medicine 03/08/20 documented as of this encounter
--- OUTSIDE RECORDS SUMMARY | 2024-01-17 18:05 | XMS_ITS | Encounter Summary ---
Author Organization [facility] Address [facility] [place] [address] Care Team Providers Care Viscose Department Worker Name Role Phone Carolynn Wisdom APRN Primary Care Provider Reason for Referral * Diagnostic Test (Routine) - Closed Specialty Diagnoses / Procedures Referred By Bay mckeon Referred To Contact Sleep Center Diagnoses Snoring Obesity, unspecified classification, unspecified obesity type, unspecified whether serious comorbidity present Type 2 diabetes mellitus with other specified complication, unspecified whether correction insulin use Procedures Home Sleep Study Karla Woody ACCOUNT SUPPORT SPECIALIST [facility] [place] [address] [facility] [address] [place] [address] Referral ID Status Reason Start Date Expiration Date V isits Requested Visits Authorized [id number] Closed Specialty Service Requested 01/19/2022 03/19/2022 1 1 Reason for Visit * Consultation (Routine) - Closed Specialty Diagnoses / Procedures Referred By [place] mckeon Referred To Contact Sleep Center Diagnoses Morbid (severe) obesity due to excess calories pre- bariatric surgery evaluation for suspected sleep apnea Procedures evaluate for sleep apnea Krytsin Sharpe APRN [facility] [place] [address] [facility] [address] [facility] [place] [address] Referral ID Status Reason Start Date Expiration Date V isits Requested Visits Authorized [id number] Closed Consult, Test & Treat 01/08/2022 01/08/2023 1 1 Encounter Details Date Type Department Care Team (Late st Contact Info) Description 01/17/2022 1:00 PM EDT TH Visit (TeleHealth) Sleep Center at [address] [place] [phone] Karla Woody, CANDE [facility] [address] Snoring; Obesity, unspecified classification, unspecified obesity type, unspecified whether serious comorbidity present; Type 2 diabetes mellitus with other specified complication, unspecified whether correction insulin use Social History Tobacco Use Types Packs/Day [...] Sign Reading Time Taken Comments Blood Pressure - - Pulse - - Temperature - - Respiratory Rate - - Oxygen Saturation - - Inhaled Oxygen Concentration - - Weight 97.5 kg (215 lb) 01/17/2022 9:58 AM EDT Height 161.3 cm (5' 3.5) 01/17/2022 9:58 AM EDT Body Mass Index 37.49 01/17/2022 9:58 AM EDT documented in this encounter Progress Notes * Karla Woody, CANDE - 01/17/2022 1:00 PM EDT Sleep Medicine Telemedicine Consultation Note The patient is currently located at their home in [place] Patient provided verbal consent prior to initiation of this telemedicine encounter. A telehealth visit was necessary due to the ongoing COVID-19 public health emergency. CC:Melinda Goncalves is a 61 y.o. female seen at the request of Krystin Sharpe APRN for advice regarding possible HEATHER. HPI: She is interested in bariatric surgery. She sleeps alone but her children have noted snoring. No reports of periods of apnea or nocturnal gasping. She is a light sleeper but sleeps fairly well. Wakesfeeling refreshed. She is not overly sleepy during the day and does not nap or involuntarily dozing. She denies sleepy driving since getting BS under control. No close calls or accidents. HX: DM2, hypothyroidism, obesity, HLD, psoriasis Sleep Pattern: Bed/Recliner/Wedge: flat bed with 1 pillow, sleeps prone Bedtime: 9p Lights out: same as BT Latency: within a few mintues Awakenings: 0-1 time Reason: to urinate Duration: sometimes has trouble returning to sleep but plays a game on her phone is then quickly able to return to sleep Wake time: 5:3a Rise time: same as BT Respiratory: Snoring: not sure, sleeps alone since the 1989 but her children have told her she snores Observed Apneas: no Nocturnal Gasping: no Nasal Obstruction: no Mouth Breathing: not sure Dry Mouth: no Daytime Symptoms: Patient-reported last 4 scores: [facility] 01/17/2022 [place] [facility] Incomplete Upon Awakening: generally wakes feeling refreshed if she gets enough sleep Naps: no Involuntary Dozing: no Driving: not since BS are under control Close calls related to sleepiness no Accidents related to sleepiness no Other Associates Sleep Symptoms: Parasomnias: Sleep Walking: no Dream Enactment: no Motor: RLS: no PLMS: no Medications: Current Outpatient Medications Medication Instructions ??? aspirin EC 81 mg Tablet, Delayed Release (E.C.) Oral ??? BLOOD SUGAR DIAGNOSTIC, DISC MISC NOT APPLICABLE ??? Blood-Glucose Meter Misc NOT APPLICABLE ??? calcipotriene (Dovonex) 0.005 % Cream Apply to lesions on body twice a day M- ??? clobetasoL (Temovate) 0.05 % Ointment Apply topically twice a day on weekends, avoid face. ??? clobetasoL (TEMOVATE) 0.05 % Solution Apply topically to the scalp once daily for 2 weeks then take a week off and then repeat as needed ??? clotrimazole (LOTRIMIN) 1 % Cream Topical ??? Insulin [place], Disposable, 29 gauge Needle NOT APPLICABLE ??? ketoconazole (NIZORAL) 2 % Cream Apply topically to areas under the breast and in the groin once daily for 3 weeks. Then use a few times weekly for maintenance. ??? lancets Misc NOT APPLICABLE ??? Lantus Solostar U-100 Insulin 36 Units, Every evening ??? levothyroxine (SYNTHROID) 50 mcg, Oral, DAILY ??? metFORMIN (GLUCOPHAGE) 1,000 mg, Oral, 2 TIMES DAILY ??? rosuvastatin (CRESTOR) 2.5 mg, Oral, DAILY ??? tacrolimus (Protopic) 0.1 % Ointment Apply to areas of psoriasis twice daily on weekdays ??? triamcinolone (KENALOG) 0.1 % Cream PRN ??? ustekinumab (Stelara) 90 mg/mL subcutaneous injection Inject 90mg subcutaneously at weeks 0, 4 and every 12 weeks thereafter Past Medical History: Active Ambulatory Problems Diagnosis Date Noted ??? Hyperlipidemia 08/08/2021 ??? Inverse psoriasis 08/08/2021 ??? Migraine headache with aura 08/08/2021 ??? Subclinical hypothyroidism 08/08/2021 ??? Transient vision disturbance of left eye 08/08/2021 ??? Type 2 diabetes mellitus 08/08/2021 ??? Class 2 severe obesity due to excess calories with serious comorbidity and body mass index (BMI) of 38.0 to 38.9 in adult 08/08/2021 Resolved Ambulatory Problems Diagnosis Date Noted ??? 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 Alcohol: about 3 drinks per week Smoking: quit in 1989, light smoker in college Caffeine: 1.5 cups of coffee per day Other drugs: no Family History: Family history of sleep disorders: daughter had HEATHER until bariatric surgery ROS: CON: weight change: has lost 35 lbs in the last few years ENT: nasal obstruction: no PUL: FRAIRE: no CV: chest pain: no Palpitations: no LE edema: no GI: GERD: occ due to diet or under stress : Nocturia: no MSK: Pain: no NEURO: sleep related headaches: no ALL: + mild seasonal ENDO: + DM2 and hypothyroidism PSY: Depression: yes, treats with CBT, not in counseling and hasn't been on meds in years Anxiety: not currently PE: Ht 161.3 cm (5' 3.5) Wt 97.5 kg (215 lb) BMI 37.49 kg/m?? General: NAD Eyes: conjunctiva clear ENT: Mandibular structure and position: normal NECK: Submental fat present: yes LUNGS: respirations even and unlabored SKIN: no visible rashes NEURO: A&O times 3 PSYCH: Alert and appropriate: yes Affect: full range Mood: good Judgement and insight: intact Assessment: Melinda Goncalves is a 61 y.o. female with a history of snoring, light sleeper. She interested in bariatric surgery. Has the following physical features associated with HEATHER; obesity. The history and symptoms are suspicious for obstructive sleep apnea. The diagnosis of obstructive sleep apnea was reviewed in detail with the patient at this time. Potential consequences of untreated obstructive sleep apnea reviewed, including increased cardiovascular and surgical risks. The association between HEATHER and obesity was reviewed. Treatment options reviewed in detail including PAP therapy, oral appliances. Patient confirms that study results can be released to their my account. Questions regarding diagnosis and management answered at this time. Recommendations: 1. HST, she is aware she may need to return for an in lab PSG 2. Role of weight loss reviewed, she is interested in bariatric surgery 3. Safe driving precautions extensively reviewed with the patient 4. F/U 6 weeks after starting PAP therapy if found to have HEATHER. Plan discussed with the patient and they are in agreement. KARLA WOODY APRN documented in this encounter Plan of Treatment Upcoming Encounters Date Type Department Care Team (Late st Contact Info) Description 02/01/2025 2:15 PM EDT Office Visit Dermatology at 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 [...] as of this encounter Visit Diagnoses Diagnosis Snoring Other dyspnea and respiratory abnormality Obesity, unspecified classification, unspecified obesity type, unspecified whether serious comorbidity present Type 2 diabetes mellitus with other specified complication, unspecified whether correction insulin use documented in this encounter Care Teams Viscose Department Worker Relationship Specialty Start Date End Date Carolynn Wisdom APRN [address] [place] [address] [address] [place] [address] PCP - General Family Medicine 03/08/20 documented as of this encounter
--- OUTSIDE RECORDS SUMMARY | 2024-01-17 18:05 | XMS_ITS | Encounter Summary ---
Author Organization [facility] Address [facility] [place] [address] Care Team Providers Care Transmission Rebuilder Name Role Phone Carolynn Wisdom CANDE Primary Care Provider Encounter Details Date Type Department Care Team (Late st Contact Info) Description 01/09/2022 Refill Dermatology at [facility] [address] [place] [phone] [facility] [address] [place] [address] Social History Tobacco Use Types Packs/Day Years [...] Visit Dermatology at [facility] [address] [place] [phone] Regina Rivas MD [facility] [address] [place] [address] documented as of this encounter Goals Goal Patient Goal Type Associated Problems Recent Progress Patient-Stated? Author meal timing/food choices/ bariatric behaviors Lifestyle On track(2021 11:38 AM EDT) No Leonid, Michelle L, BIOMETRICS EXPERIMENTALIST Note: Work on eating more mindfully Try [...] track(2021 11:37 AM EDT) No Michelle Jaquez, BIOMETRICS EXPERIMENTALIST Note: Mindfulness/deep breathing practice to reduce cortisol -try for at least 10 minutes a day sleep Lifestyle On track(2021 11:37 AM EDT) No Michelle Jaquez, BIOMETRICS EXPERIMENTALIST Note: Continue to work with sleep at [facility] Goal 7 hours of sleep nightly. Recommend consistent sleep and wake times, avoid electronics within one hour of sleep time movement Lifestyle No Michelle Jaquez, BIOMETRICS EXPERIMENTALIST Note: Exercise goal is 150 -300 min [...] on filedocumented in this encounter Care Teams Transmission Rebuilder Relationship Specialty Start Date End Date Carolynn WisdomCANDE [address] [place] [address] PCP - General Family Medicine 03/08/20 documented as of this encounter
--- OUTSIDE RECORDS SUMMARY | 2024-01-17 18:05 | XMS_ITS | Encounter Summary ---
Author Organization Formerly [facility] [place] [address] Care Team Providers Care Rubber Belt Splicer Name Role Phone Carolynn Wisdom CANDE Primary Care Provider Reason for Visit * Reason Comments Medication Management Encounter Details Date Type Department Care Team (Late st Contact Info) Description 01/17/2022 Specialty [place] [address] Viridiana Lemus RPH Social History Tobacco Use Types Packs/Day [...] as of this encounter Progress Notes * Viridiana Lemus RPH - 01/17/2022 2:53 PM EDT Specialty Pharmacy Consultation; Viridiana Lemus RPH Comprehensive Medication Management (CMM) Melinda Goncalves Diagnosis: Inverse psoriasis Therapy Start Date: 06/20/21 Contact in person or via telephone:telephone Ms. Melinda Goncalves is a 61 y.o. [...] the Clinical Assessment? Yes Summary and Recommendations: Spoke to patient in regards to Stelara. Medication, allergies, and health conditions were confirmed. Patient confirms proper injection storage, administration, and disposal. Patient denies any difficulties with administration. Patient denies any recent infections and confirms understanding of when to contact the clinic in order to discuss if a hold in therapy is needed. Currently, patient is taking Stelara for the treatment of psoriasis. Patient denies experiencing any adverse reactions. Patient says she starts to see the start of a flare roughly 1 to 2 weeks beforeher injection is due. She notes itchiness, flakiness, and irritation all over (behind ears, base ofscalp, scalp, breast, under arm, groin, vaginally area). She applies topicals to calm it down. She notes overall topical use is down as she rarely uses it now. She notes no pain or blistering. She isnormally no itchy and flaky when not in the 2 week period prior to injection. She says she still has spots (discoloration still left). She says the plaques and flakiness at her hip bones still exist though not inflamed and is smaller. She also notes inflammation in 1 finger joint. She says it is better with Stelara. She has only had 1 flare since starting Stelara. She says it doesn't hurt as much. Overall, she is pleased with the clearing she has seen and would like to continue therapy as prescribed. At this time, patient does not have any questions or concerns. We will continue to follow up with patient accordingly. Clinic follow-up needed: yes - routine follow-ups Allergies and Drug intolerance: No Known Allergies [...] 38.0 to 38.9 in adult E66.01, Z68.38 Special Dietary or Hydration Requirements: no Medication Reconciliation Discrepancies (compared to [facility] med list) no Medication List: Current Outpatient Medications Medication Sig Dispense Refill ??? ustekinumab (Stelara) 90 mg/mL subcutaneous injection Inject 90mg subcutaneously at weeks 0, 4 and every 12 weeks thereafter 1 mL 0 ??? clobetasoL (Temovate) 0.05 % Ointment Apply topically twice a day on weekends, avoid face. 60 g0 ??? tacrolimus (Protopic) 0.1 % Ointment Apply to areas of psoriasis twice daily on weekdays 100 g 3 ??? BLOOD SUGAR DIAGNOSTIC, DISC MISC by NOT APPLICABLE route. ??? lancets Misc by NOT APPLICABLE route. ??? Blood-Glucose Meter Misc by NOT APPLICABLE route. ??? Insulin [place], Disposable, 29 gauge Needle by NOT APPLICABLE route. ??? aspirin EC 81 mg Tablet, Delayed Release (E.C.) Take by mouth. ??? Lantus Solostar U-100 Insulin pen 36 Units. Every evening ??? levothyroxine (Synthroid) 50 mcg Tablet Take 50 mcg by mouth daily. ??? metFORMIN (Glucophage) 500 mg Tablet Take 1,000 mg by mouth 2 times daily. ??? rosuvastatin (Crestor) 5 mg Tablet Take 2.5 mg by mouth daily. ??? clobetasoL (TEMOVATE) 0.05 % Solution Apply topically to the scalp once daily for 2 weeks then take a week off and then repeat as needed 50 mL 1 ??? ketoconazole (NIZORAL) 2 % Cream Apply topically to areas under the breast and in the groin once daily for 3 weeks. Then use a few times weekly for maintenance. 60 g 3 ??? calcipotriene (Dovonex) 0.005 % Cream Apply to lesions on body twice a day M-F 120 g 0 ??? triamcinolone (KENALOG) 0.1 % Cream as needed. ??? clotrimazole (LOTRIMIN) 1 % Cream Apply topically. No current facility-administered medications for this visit. Most Recent Vitals: Ht Readings from Last 1 Encounters: 01/17/22 161.3 cm (5' 3.5) Wt Readings from Last 3 Encounters: 01/17/22 97.5 kg (215 lb) 11/16/21 96.2 kg (212 lb) 10/17/21 96.6 kg (213 lb) Temp Readings from Last 3 Encounters: No data found for Temp BP Readings from Last 3 Encounters: No data found for BP Pulse Readings from Last 3 Encounters: No data found for Pulse There is no height or weight on file to calculate BMI. Pertinent Lab values: Lab Results Component Value Date NA 139 06/19/2021 K 4.0 06/19/2021 CL 102 06/19/2021 CO2 26 06/19/2021 BUN 10 06/19/2021 CREATININE 0.82 06/19/2021 GLUCOSE 187 06/19/2021 CALCIUM 9.7 06/19/2021 Lab Results Component Value Date ALT 21 06/19/2021 AST 20 06/19/2021 ALKPHOS 64 06/19/2021 BILITOT 0.4 06/19/2021 ALBUMIN 4.3 06/19/2021 PROT 7.0 06/19/2021 Lab Results Component Value Date WBC 5.3 06/19/2021 HGB 13.1 06/19/2021 HCT 40.3 06/19/2021 MCV 89.4 06/19/2021 PLATELET 227 06/19/2021 No results found for: HA1C There is no immunization history on file for this patient. Assessment and Recommendations: Patient Counseling Patient informed of specialty services: Yes Patient accepted offer to pediatric genetic counselor: adherence/missed doses, cost of medications/cost implications, doses and administration, possible drug/OTC drug and food interactions, possible adverse side effects and management, pharmacy contact information, lab monitoring/follow up, possible drug/Rx drug interactions, safe handling, storage, and disposal, therapeutic rationale Medication Management Summary Topics discussed: reviewed medication changes since last visit, medication safety precautions education provided, safe handling, storage, and disposal discussed, possible adverse effects and management discussed, lab monitoring and follow-up discussed, cost of medications and cost implications discussed, adherence and missed doses discussed, health goals discussed, monitoring medication discussed, preventative care discussed, reminder to refill or pecan picker medication discussed, self-monitoring discussed, timing of medications discussed, vaccination discussed, lifestyle modification education, referral needs discussed Time spent: 16-30 min Treatment Outcomes 01/17/2022 9410 Disease progression: Stable Patient Overall Status: Stable Reviewed in detail [...] Social Assessment: Does patient have a primary child day care center worker: No Does patient have an emergency contact on file: Yes Does patient need referral to delinquency prevention social worker: No Does patient need referral to advocacy group: No Home Health Assessment: Is the patient in a safe home environment?: Yes Is the patient able to store their medication as directed?: Yes Does the patient have a support network at home?: Yes Reviewed potential home safety hazards with patient: Yes Economic Assessment: Patient is agreeable to medication copay: Yes Actual Copay: $: 5 Days Supply: 84 Welcome Packet and Rights and Responsibilities: Patient provided welcome packet/rights and responsibilities: Yes Date Confirmed: 11/23/20 Confirmation: Signature in [facility] Med Adherence Patient Demonstrates Understanding of Importance of Adherence: Yes Educational Information or Adherence Tools Provided: Yes Patient Reported X Missed Doses in the Last Month: 0 Provider-Estimated Medication Adherence Level: 90-100% Adherence Tools Used: directed education, calendar Therapy Assessment: Current Medication Dosing/Route/Frequency: Stelara 90mg/mL syringe Inject 90mg under the skin every12 weeks Appropriate Therapy: Yes Effective: yes Current Affected Areas: behind ears, base of scalp, scalp, breast, underarm, groin, vaginal area Improving Affected Areas: all Worsening Affected Areas: none Total BSA involved: unknown Recent Skin Exacerbations/Flaring: no Recent Topical Corticosteroid Use: yes - clobetasol Relapsing/Remitting Factors: no Patient-Reported Side Effects: no Recent Infections: no Counseling: Utilizing appropriate injection technique: yes - confirms proper injection technique Rotation of Injection Sites: Yes Room Temperature Medication at Time of Injection: Yes Patient Goals: Patient's specific desired goal: patient would like to see more continuous clearing without intermittent flares before injection date Measured by: symptoms as reported by patient Time-frame to meet goal: 6 months Is the patient on track to achieve goals of therapy? Yes If no, what are the barriers and action plan to reach the goal: N/A Care Plan and Interventions: Care Plan Reviewed and Approved by both Pharmacist and Patient: Yes Did Care Plan Change? No If yes: Change to plans of care based on: Patient's request: no Condition: no Response to therapy: no Provider request: no Follow-up needed: No Interventions (if applicable): yes - will message MD to assess if we can change to Q10 week dosing Patient experienced change in condition that affects treatment: no Patient Satisfied with Therapy: yes - notes overall improvements Pharmacist follow-up needed: Yes Patient understands no changes to current drug regimen were made at the appointment and [facility] (summary located at top of note) for provider review and follow up. Viridiana Lemus RPH 01/17/22 3:10 PM documented in this encounter Plan of Treatment Upcoming Encounters Date Type Department Care Team (Late st Contact Info) Description 02/01/2025 2:15 PM EDT Office Visit Dermatology at [facility] [address] [place] [address] Regina Rivas MD [facility] [place] [address] documented as of this encounter [...] Continue to work with sleep at [facility] Goal 7 hours of sleep nightly. Recommend [...] on filedocumented in this encounter Care Teams Rubber Belt Splicer Relationship Specialty Start Date End Date Carolynn Wisdom APRN [address] [place] [address] PCP - General Family Medicine 03/08/20 documented as of this encounter
--- OUTSIDE RECORDS SUMMARY | 2024-01-17 18:05 | XMS_ITS | Encounter Summary ---
Author Organization [facility]ly [facility] [place] [address] Care Team Providers Care Pipeline Inspector Name Role Phone Carolynn Wisdom CANDE Primary Care Provider Encounter Details Date Type Department Care Team (Late st Contact Info) Description 10/03/2022 1:00 PM EDT Office Visit Auditorium C at [facility] [place] [address] Marjorie Holman APRN [facility] [place] [address] Mirian Horowitz, RD [facility] [place] [address] Class 2 severe obesity due to excess calories with serious comorbidity and body mass index (BMI) of 38.0 to 38.9 in adult; Preop testing; Type 2 diabetes mellitus without complication, with long-term current use of insulin; Encounter 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 Fatima [phone] Vice President [employer]: [phone] Dietitians: [phone] Outside of regular business hours, including weekends and holidays: Ask for General Surgery resident director transition [phone] BEFORE YOUR SURGERY: Questions for your doctor, specialist or pharmacist: Ask your doctor about medication suggestions if you currently take medications that are larger than the size of a tylenol or calcium pill. Large pills need to be crushed (if permitted by the drug metal stamping machine operator), taken in smaller size pills, or taken in liquid form for TWO WEEKS after surgery. If you take antinflammatory medications or steroid medications for arthritis or asthma, please check with your doctor. These medications will need to be held 1 week prior to and at least a few weeks after surgery. Oral contraceptive pills, post menopausal hormones, and male hormones should be stopped 1 month before and 1 month after surgery. If you have sleep apnea be sure to bring your CPAP/BiPAP with you to the hospital. Schedule a follow up appointment with your primary care provider 10-14 days after your surgery. Bring your handbook with you to the hospital AFTER YOUR SURGERY: GENERAL BARIATRIC SURGERY DISCHARGE INFORMATION (some information specific to health problems list below may not pertain to you) FOR EMERGENCIES: CALL 911 (trouble breathing, chest pain, rapid heart rate or severe abdominal pain) CALL THE BARIATRIC TEAM [...] a blood clot: leg swelling, redness, or pain Problems with urination or constipation, worsening abdominal pain not controlled with pain medication Any concerns you may have after your surgery Follow up Information: You will be given a surgical follow-up appointment with The Bariatric Surgery Team in 3-4 weeks at the General Surgery Outpatient Clinic ([facility] [employer] [facility], [facility]). BATHING AND WOUND CARE: You may shower [...] when you feel comfortable. Do not drive for 2 weeks. After [address] when comfortable and not taking narcotic pain medicine. DIET: Follow Stage II diet for two weeks. Keep a log of your intake: Daily goals are: 48-64 ounces of fluids and 60 grams of protein. MEDICATIONS: For 2 WEEKS: LARGE pills (bigger than the size of a calcium pill) must be crushed, Capsules must beopened onto applesauce or pudding. Pills smaller than the size of a calcium DO NOT need to be crushed. Not all medications can be crushed. Check with your pharmacist if unsure. HOLD bariatric vitamins for 2 weeks after surgery BLOOD CLOT PREVENTION: Be active, walk at least 4 times a day and do blood clot prevention exercises in your handbook on page 82. Some patients will be discharged on enoxaparin twice a day for 10 days to prevent blood clots, which is determined by the surgeon. IF YOU ARE TREATED FOR OBSTRUCTIVE SLEEP APNEA: IMPORTANT - you MUST use your CPAP/ BIPAP after surgery while sleeping at night and also when napping during the day because some medications you may have been prescribed at discharge can decrease your breathing. Follow up with the Sleep Center if pressure seems to be too high. ULCER PREVENTION: IMPORTANT - you must take acid suppressing medication such as pantoprazole, nexium or omeprazole for 3 MONTHS after surgery. This is taken to prevent ulcers at your surgical sites internally, even ifyou do not have heartburn. omeprazole 20 mg daily (or another medication you may currently take for heartburn/reflux that has been discussed with Bariatric Team) Omeprazole capsules contain enteric-coated, delayed-release granules. Because these granules shouldnot be chewed or crushed, you must OPEN the capsules, sprinkle the enteric-coated granules on applesauce or yogurt. Alternatively, you may take the granules with apple juice, or swallow them quickly with water. Follow any of these methods with additional water to ensure that you have swallowed the granules completely. If your insurer does not cover omeprazole, or similar medications such as pantoprazole, you must purchase these medications over the counter. Decrease the medication to every other day when you have 7 days left in your prescription. Continuethis after the initial 3 month course if you have heartburn or reflux If you have Hill's esophagus, continue the medication tank terminal gauger GALLSTONE PREVENTION: If you have had your gallbladder REMOVED - you do not need this medication. If you have your gallbladder after Bariatric Surgery - you must take start taking Ursodiol (Actigall) 300 mg twice a day to prevent gallstones. You may START this medication 2 weeks after surgery fora duration of 6 months. After that, you may stop this medication unless otherwise directed. PAIN MEDICATION: Your pain should lessen with [...] ways to distract yourself from the pain. MEDICATIONS TO AVOID FOR TWO MONTHS AFTER SURGERY: Discontinue anti-inflammatory non-steroidal medications, such as Celebrex, Mobic, Advil (ibuprofen), Aleve (naprosyn), etc. Refer to Medications that may increase the risk of bleeding in handbook. If you do take aspirin for your heart or to prevent strokes, continue as prescribed. CONSTIPATION: Be sure you are meeting your fluid goals and moving/walking. Take 1 capful of miralaxdaily (preferably at night) with a goal of [...] daily but continue to take miralax every day. WOMEN OF CHILDBEARING AGE: Fertility may increase with weight loss. Avoid for 18-24 months after bariatric surgery. Condoms alone are not acceptable as a form of control. Do not take control pills for the first month after surgery. MANAGEMENT OF DIABETES MELLITUS AFTER BARIATRIC SURGERY: IMPORTANT to check blood sugars four times a day, fasting blood sugars, 2 hours after meals and as needed when feeling unwell. If the Diabetes Team saw you during your hospital stay, they have listed specific recommendations elsewhere in your discharge paperwork. Please refer to their specific diabetes care recommendations. Patients on oral diabetic medication: If blood sugar is over 200 on more than 3 checks, call your primary care physician or diabetic specialist for recommendations. For patients on insulin and oral diabetic medications: If blood sugar is over 200 on 3 checks, call your primary care doctor or diabetic specialist for recommendations. Follow up with primary care provider or bibliographic services specialist in 1-2 weeks in order to adjust your changing diabetes treatment requirements. PATIENTS WITH HIGH BLOOD PRESSURE: Monitor your blood pressure regularly. If you feel dizzy and have been drinking 48-64 ounces of fluid, have your blood pressure checked. If your blood pressure is low, call your primary care provider. Keep a log to bring to your PCP appointments. PATIENTS WHO TAKE DIURETICS (WATER PILLS) such as furosemide, HCTZ (hydrochlorothiazide), spironolactone: Check with your surgical team prior to discharge for instructions. In general, this medication is stopped after surgery, as you are at risk for dehydration after Bariatric Surgery. Monitor yourself for any swelling of legs or gain of water weight after medication is stopped. Call your primary care doctor if you notice this. PATIENTS ON ANTI-DEPRESSANT OR MENTAL HEALTH MEDICATIONS: Do not stop or decrease your medications unless advised. Ongoing counseling is encouraged. Some patients notice a change in their mood early after surgery, if you are having difficulty coping with the lifestyle or dietary changes associated with surgery please follow up with your primary care provider or your mental health provider. Important to have non-food related ways to cope with stress. VITAMIN AND MINERAL SUPPLEMENTATION: START at 2 [...] You should follow up with your surgeon or bariatric nurse practitioner and dietitian at 3-4 weeks after surgery. You will follow up with the dietitian and Bariatric nurse practitioner at 4, 12 months, then yearlyfor life. Vitamins and supplements are required for life. Pre-op Class Nutrition Outline PRE-OP DIET Important to follow pre-op diet for full 2 weeks before surgery to shrink the liver and make it more pliable for the surgeons. Your Goals: 800-1000 Calories 80-100 grams Carbohydrates 60-80 grams Protein (men or people with a BMI over 50 should aim for 80 grams per day) 48-64 ounces of Hydrating Fluid Log intake before your meal. Try to log a day of meals in advance. HYDRATING FLUIDS AVOID soda, alcohol, caffeine, and juice or other sweetened beverages Wait 30 minutes before and after meals to drink fluids Stay hydrated to prevent dehydration, constipation, and kidney stones DIET STAGES Stay on the Stage 2 diet for 2 full weeks to allow the stomach to heal safely, decrease risk of blockage or intolerance, and to help with early weight loss. VITAMINS AND MINERALS FOR LIFE Start vitamins and minerals 2 weeks after surgery MVM- one taken twice per day Calcium Citrate- 1704-9199 mg daily total, 500-600 mg taken two-three times per day B-12- 500 mcg daily (sublingual or oral) Iron 50-66 mg daily if anemic or still having menstrual cycles. (Space 2 hours apart from Calcium.) Take bariatric supplements as directed on the label PROTEIN SUPPLEMENTS At least 20 g protein per serving (1 scoop or ???[id number]-[id number]-tefya?? ) Under 200 calories for ???kewkl-gf-gusdy?? Under 100 calories per scoop for powder Under 5 g sugar (under 10 g total carb) Whey or soy based VOMITING/ DUMPING SYNDROME/FOOD INTOLERANCE Causes of vomiting: eating too fast or too much, improper chewing, drinking with meals, and eating foods you do not tolerate Dumping Syndrome: Caused when excess carbs or fats are dumped into the small intestine and it has trouble managing the excess Late Phase Dumping: Can occur 2-4 hours after meal, high carbohydrate load in the intestine increases blood sugar and insulin release. Excess insulin takes out too much blood sugar and causes low blood sugar. Treat with the 15/15 rule. Food Intolerance: Caused when the stomach pouch is having trouble digesting foods. TRACKING FOOD AND FLUID INTAKE Very important! Helps to ensure you are meeting your daily goals and taking required supplementation. Helps you to determine which foods you may not tolerate or cause dumping syndrome. CAUSES OF WEIGHT REGAIN It is not uncommon to have a little weight rebound a couple of years out from surgery Not enough protein, fluid or physical activity Emotional eating Grazing/ snacking on high carb, low nutrient foods Lack of personal responsibility for staying on track and in control TIPS FOR SUCCES TYESHA, TYESHA, CHEW!!! Add one new food at a time Eat VERY slowly Drink between meals Measure food & beverages Stay mindful, listen to your body Pay attention to your hunger Plan your meals & snacks, shop with a list Survival Tips for the First Month after Surgery Keep it simple. Focus on the positives in your life. Everything will get easier with time. MEDICATION INFORMATION: All bariatric surgery prescriptions, including narcotics and enoxaparin (if needed), will be provided during your inpatient stay. The prescription is typically sent to the [facility] Pharm[facility] at discharge. Take the medication to prevent ulcer (omeprazole or similar medications) for 3 full months, even ifyou do not have heartburn. START at discharge. You can discontinue after 3 months as long as you are not having any heartburn or reflux. Take ursodiol (Actigall) for 6 full months to prevent gallstones (if you have a gallbladder). STARTat 2 weeks after surgery. Supplements for LIFE: START at 2 weeks after surgery. Take chewable multivitamin with minerals and iron twice a day, vitamin B12 500 mcg daily and calcium citrate 500-600 mg with vitamin D 400 IU twice a day. If you take a bariatric specific multivitamin, follow directions on bottle. Iron with vitamin C should be taken only if you have anemia, iron deficiency or regular periods. If you take medications for depression and/or anxiety, stay on these medications for at least 6 months after surgery. Do not attempt to taper without medical supervision. Counseling is recommended. Avoid narcotic pain medication if possible. Narcotics, such as oxycodone, may cause nausea, constipation and strange dreams. Try acetaminophen (Tylenol) instead. A heating pad/hot water bottle can also provide pain relief. NUTRITION TIPS: You will feel full very quickly with very small amounts of food. This is NORMAL. You are unlikely to feel hungry- this is also normal. Foods may taste different than prior to surgery. You must eat 3 meals a day, despite a lack of hunger. Journal your intake every day so that you know how much protein and fluids you are getting. Add a snack or two if needed to get closer to the goal of 60 grams of protein a day. Reaching goalswill be difficult to achieve in the first month or two after surgery. Make sure to sip rather than gulp water throughout the day (within the 30-30-30 rule). Carry a water bottle everywhere you go. The stage 2 diet must be followed for 14 days. It is BORING, but follow it anyway. It will help your stomach heal faster. Advancing the diet can make you sick. Weight: plateaus are normal, even early after surgery. Don't be discouraged. Avoid weighing yourself daily. You will likely gain some weight in the hospital due to intravenous fluids. Bowels: You may have loose bowels after surgery or be constipated. If you have not had a BM within 2 days, take Tracy-Lax or milk of magnesia. Increasing water intake and walking is helpful. Call if no BM after 3 days. Activity: Be active, walking at least 4 times a day to prevent blood clots. After surgery, it is normal to feel tired. Take a nap if you feel tired. Some patients find sleeping in a recliner more comfortable early post-surgery. [facility] Post-Bariatric Surgery Events Calendar Date Time period Activity Comments Day of discharge Start medication to prevent ulcer such as omeprazole. Don't take meds that can cause ulcers such as Advil, Excedrin, Aleve etc for at least 2 months If you took heartburn medication such as Nexium or Prevacid prior to surgery you can take it instead of omeprazole. The prescription is sent at discharge, but is available over the counter. Stay on stage 2 diet for 2 full weeks If ordered, start injections (enoxaparin) Inject twice a day for 10 days to prevent blood clots. supervisor grain and yeast plants prescription at [facility] Pharm[facility] 2 weeks post surgery If you have a gallbladder, start Ursodiol . Take for 6 months to prevent gallstones This prescription is sent at discharge. Call the pharmacy to check reyes first, if >$200, call us to rewrite prescription via [facility] Start stage 3 diet Start vitamins and supplements Visit with PCP to check your overall health, including blood pressure, diabetes, mental health, etc. If you have diabetes or take lots of blood pressure medications and/ or fluid pills, see your PCP at 1 week post-op 3 weeks: visits with surgeon or VOICER and dietitian Bring diet logs and complete list of medications, vitamins/supplements including dose and type (or take photos) 4 weeks Start stage 4 diet This is your meal plan for life 3 months Stop ulcer prevention medication. Taper the doses to every other day for a week prior to ending the prescription If you have heartburn, call your PCP for refill also available over the counter. Do not taper medication if you have Hill's esophagus 4 months: Visits with RD /VOICER Bring complete list of medications and supplements including dose and type (or take photos) Have lab work done before your appointment. Bring copies of any labwork that may have been done by your PCP 6.5 months Stop Ursodiol. No refills are needed. [address]/VOICER Bring complete list of medications and supplements including dose and type (or take photos) Have lab work done before your appointment. Bring copies of any labwork that may have been done by your PCP* 2 years and yearly for life visits with RD/VOICER Bring complete list of medications and supplements including dose and type (or take photos) Have lab work done before your appointment. Bring copies of any labwork that may have been done by your PCP Abbreviations: RD: registered dietitian. VOICER: nurse practitioner documented in this encounter Progress Notes * Marjorie Holman APRN - 10/03/2022 1:00 PM EDT BARIATRIC SURGERY PROGRAM [place], [place] [id number] Reason for visit: [facility] for up coming bariatric surgery Melinda attended a comprehensive group pre-operative class today, which included discussion of pre and post operative instructions included in the [facility] Bariatric Surgery Program Education Handbook. The nutrition component of the class was taught by the [facility] RD. Patient completed health update form. No [...] Surgery info: Patient is scheduled for laparoscopic Parker-en-Y gastric bypass on 10/19/22 with [...] Pt previously attended a Introduction to the [facility] Bariatric Surgery Program seminar,a two hour meeting that provides a program overview as well as expectations. The [facility] Bariatric Surgery Program Educational seminar requirement has [...] of surgery and post-op routine care/ locations: Admissions/SDP/PACU/ [facility] units ?? medications that increase the risk [...] were answered. Time spent in counselin minutes * Mirian Horowitz RD - 10/03/2022 1:00 PM EDT BARIATRIC SURGERY PROGRAM NUTRITION EDUCATION 2nd Pre-Operative Visit Shared Medical Appointment Melinda Goncalves attended a 2 hour shared medical appointment today with the bariatric surgery program dietitian and nurse practitioner. Ms. Goncalves is a female with morbid obesity who has been referred for nutrition evaluation and diet instruction in anticipation of bariatric surgery. Previous conservative attempts at weight loss through dieting have been unsuccessful over the custodial. Advised patient that bariatric surgery is a weight loss tool not a solution; and ultimately weight loss will be achieved through proper eating and exercise habits. Patient was given a copy of the program handbook at the initial appointment which includes specific information on all nutrition recommendations and guidelines. Pt instructed on importance of following the Pre-operative Surgical Diet. Failure to do so may result in poor pre-surgical weight loss and may result in surgery not being performed. Melinda was given the opportunity to ask questions and all questions were answered. She was also given contact information for further nutrition questions. Nutrition Topics Covered at Today's Appointment: ?? Pre-operative Surgical Diet ?? Purpose of diet ?? Appropriate foods ?? Protein goals ?? Carbohydrate goals ?? Calorie goals ?? Keeping a food log ?? Hydration and Appropriate Beverages ?? Post-Operative Diets (Stages I-IV) ?? Importance of following diet stages ?? Appropriate foods ?? Sample Menus ?? Vitamin/Mineral Supplementation ?? Common Food Intolerances ?? Dumping Syndrome ?? Sugar Alcohols ?? Physical Activity ?? Weight Regain ?? Habits of Successful Bariatric Surgery Patients The appointment consisted of 60 minutes of group education and counseling. 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
--- OUTSIDE RECORDS SUMMARY | 2024-01-17 18:05 | XMS_ITS | Encounter Summary ---
Author Organization [facility] Address [facility] [place] [address] Care Team Providers Care Partnership Manager Name Role Phone Carolynn Wisdom CHILD CARE LEAD TEACHER Primary Care Provider [phone] Encounter Details Date Type Department Care Team (Latest Contact Info) Description 10/01/2022 Travel Social History Tobacco Use Types Packs/Day [...] [facility] [address] [place] [address] eRgina Rivas MD [facility] [address] [place] [address] documented as of this encounter Goals Goal [...] to work with sleep at [facility] Goal 7 hours of sleep nightly. [...] on filedocumented in this encounter Care Teams Partnership Manager Relationship Specialty Start Date End Date Carolynn Wisdom APRN [address] [place], [place] [address]Y [facility] [address] [place] [address] PCP - General Family Medicine 03/08/20 documented as of this encounter
--- OUTSIDE RECORDS SUMMARY | 2024-01-17 18:06 | XMS_ITS | Encounter Summary ---
Author Organization [facility] [place] [address] Care Team Providers Care Audio Video Tech Name Role Phone Carolynn Wisdom APRN Primary Care Provider Reason for Visit * Reason Comments Specialty Pharmacy Review Encounter Details Date Type Department Care Team (Late st Contact Info) Description 02/14/2021 Specialty [place] [address] Nisreen Baires Social History Tobacco Use Types Packs/Day Years Used Date Smoking Tobacco: Former Smokeless Tobacco: Never Sex and Gender Information Value Date Recorded Sex Assigned at Not on file Gender Identity Not on file Sexual Orientation Not on file documented as of this encounter Progress Notes * Nisreen Baires - 02/14/2021 11:59 PM EDT The [facility] has completed a benefits investigation for Melinda Goncalves to review their eligibility to fill at [facility]. Per patient's medication list they are prescribed Humira 40mg/0.8ml PNKT and the medication is currently filled at the [facility]. documented in this encounter Plan of Treatment Upcoming Encounters Date Type Department Care Team (Late st Contact Info) Description 02/01/2025 2:15 PM EDT Office Visit Dermatology at [facility] [address] [place] [id number] Regina Rivas MD [facility] [place] [address] documented as of this encounter Visit Diagnoses Not on filedocumented in this encounter Care Teams Audio Video Tech Relationship Specialty Start Date End Date ReginaldomarcusKrystalCarolynnCANDE vega [address] [place] [address] PCP - General Family Medicine 03/08/20 documented as of this encounter
--- OUTSIDE RECORDS SUMMARY | 2024-01-17 18:06 | XMS_ITS | Encounter Summary ---
Author Organization [facility] Address [facility] [place] [address] Care Team Providers Care Service Station Helper Name Role Phone Carolynn Wisdom APRN Primary Care Provider [phone] Reason for Visit * Reason Comments Psoriasis * Consultation (Routine) - Closed Specialty Diagnoses / Procedures Referred By Bay mckeon Referred To Contact Dermatology Diagnoses Erythema intertrigo Carolynn Wisdom APRN [address] [place] [address] Psychiatric Dermatology [address] [place] [address] Referral ID Status Reason Start Date Expiration Date V isits Requested Visits Authorized [id number] Closed Consult, Test & Treat Connection [facility] PCP Updated and/or Approved 10/28/2020 10/28/2021 6 6 Encounter Details Date Type Department Care Team (Late st Contact Info) Description 02/14/2021 1:40 PM EDT Office Visit Dermatology at [facility] [address] [place] [phone] [facility] [place] [address] Intertrigo; Inverse psoriasis Social History Tobacco Use Types Packs/Day Years Used Date Smoking Tobacco: Former Smokeless Tobacco: Never Sex and Gender Information Value Date Recorded Sex Assigned at Not on file Gender Identity Not on file Sexual Orientation Not on file documented as of this encounter Progress Notes * Lisa Vasquez - 02/14/2021 1:40 PM EDT Images from the original note were not included. DEPARTMENT OF DERMATOLOGY Medical Dermatology Clinic Provider: Lisa Vasquez MD Patient's preferred name Melinda Patient's preferred pronouns She/Her/Hers Preferred contact method for results []? myDH []? Letter []? Phone: cell Detailed phone message OK? Yes Are there any other people with whom we may discuss your care? Yes, mother ?? PAST MEDICAL HISTORY Y/N Date, location, treatment Melanoma N ?? Dysplastic nevi N ?? SCC N ?? BCC N ?? AKs N ?? Blistering sunburns or tanning bed use Y ?? Other relevant past medical history (i.e. eczema, psoriasis, birthmarks, immunosuppression) N ?? FAMILY HISTORY Y/N If yes, details Melanoma N ?? NMSC N ?? Other relevant family history N ?? SOCIAL HISTORY Occupation: works in [employer] Hobbies: Other: Diagnosis or treatment significantly limited by social determinants of health? No History of Present Illness: Melinda Goncalves is a 61 y.o. year old. Patient returns to clinic today for a follow up of psoriasis and she reports that it is better but she still has flares. She is using the humira and she notes that it is stinging. She is using in conjunction with topicals which is very helpful in improving the groin area. She has been using clobetasol on the weekends and calcipotriene during the week. Last visit at [facility] Derm: 11/16/2020 Last visit with this provider: 11/16/2020 Medications: Reviewed in eD-H Allergies: Reviewed in eD-H Skin Examination: Full skin examination: Patient asked to undress to their comfort level. Verbalized that the provider's preference is that patient removal all clothing and that the provider will not examine areas patient elects to keep covered. Examination of the scalp, hair, head, face, ears, neck, chest, axillae,abdomen, back, buttocks, genitalia, and upper and lower extremities. Assessment/Plan ?? Inverse Psoriasis - In groin, genitals, bilateral axillae and under bilateral breasts are well-demarcated bright pink shiny plaques with slight overlying scale. Erythematous plaques in scalp and conchal bowls. BSA: ~12%, overall improved from previous -S/p punch bx 11/06/20 showing psoriasiform dermatitis -Has been on Humira since around 11/2020 and is tolerating well -C/w Rx: Calcipotriene 0.005% cream apply to affected areas BID during the week -Discontinue Rx: Clobetasol 0.05% ointment use BID on weekends. -- Start Rx: Protopic Apply topically BID on weekends or as needed for flares during the week. Discussed side effect of stinging with application, recommend putting small amounts in fridge to reduce this side effect -- Start Rx: Clobetasol solution Apply topically to the scalp once daily for 2 weeks then take a week off and then repeat as needed Intertrigo- White macerated plaques under right inframmary and in inguinal folds - Discussed mechanical factors that make the skin environment suspectible to intertrigo. - Keep area dry. Can use blow-dryer on low setting. - Can apply Zeosorb AF powder daily to help with keep area dry once flare has subsided - Can apply linen in creases to absorb moisture. - Start Rx: Ketoconazole cream Apply topically to areas under the breast and in the groin once daily for 3 weeks, then use a few times weekly for maintenance Photo was taken and charted with patient's verbal consent. Other items to document in the assessment/plan if relevant ??? N/A RTC: 2 months for psoriasis [x]Note routed to petroleum inspector supervisor []Recall has been placed in scheduling system []Appointment scheduled at checkout Scribe attestation: Gretel Tucker LPN has performed the documentation for this encounter in thepresence of and acting as a scribe for Lisa Vasquez MD I performed the above scribed service and agree with the accuracy of the documentation in this encounter. Reviewed and signed by: Lisa Vasquez MD Dermatology [facility] Patient seen and evaluated with staff boiler maker: Patricia Hassan MD Dermatology [facility] * Patricia Hassan MD - 02/14/2021 1:40 PM EDT I directly supervised Dr. Vasquez during this office visit. Dr. Vasquez presented the history and physical exam to me. I, then, saw and examined this patient with Dr. Vasquez. We reviewed the history and pertinent details and I confirmed the physical findings. I agree with the details of the history and physical exam as documented in Dr. Vasquez's note. PATRICIA HASSAN MD Staff Physician documented in this encounter Plan of Treatment Upcoming Encounters Date Type Department Care Team (Late st Contact Info) Description 02/01/2025 2:15 PM EDT Office Visit Dermatology at [address] [address] [facility] [address] [place] [address] documented as of this encounter Visit Diagnoses Diagnosis Intertrigo Other specified erythematous condition Inverse psoriasis Other psoriasis documented in this encounter Care Teams Service Station Helper Relationship Specialty Start Date End Date Carolynn Wisdom APRN [address] [place] [address] [address] [place] [address] PCP - General Family Medicine 03/08/20 documented as of this encounter
--- OUTSIDE RECORDS SUMMARY | 2024-01-17 18:06 | XMS_ITS | Encounter Summary ---
Author Organization [facility] [place] [address] Care Team Providers Care Eligibility Consultant Name Role Phone Carolynn Wisdom APRN Primary Care Provider Encounter Details Date Type Department Care Team (Late st Contact Info) Description 11/24/2020 Telephone [place] [phone] Danna Correa, [facility] Social History Tobacco Use Types Packs/Day Years Used Date Smoking Tobacco: Former Smokeless Tobacco: Never Sex and Gender Information Value Date Recorded Sex Assigned at Not on file Gender Identity Not on file Sexual Orientation Not on file documented as of this encounter Miscellaneous Notes * Telephone Encounter - Danna Correa [facility] - 11/24/2020 1:01 PM EDT Clinical Management Plan: Medication Question Specialty Pharmacy Consultation: Danna Correa, MarianaD, [facility] Comprehensive Medication Management (CMM) Melinda Goncalves is a 60 y.o. (1960) female who contacted Specialty Pharmacy regarding aconcern with their specialty medication, HUMIRA. Therapy Start Date: 11/23/2020 Summary and Recommendations: Melinda paged the on-call Specialty Pharmacy line last night regarding an issue with her first injection of Humira. When she did the first injection she said it felt like a hornet sting so she reactedand without thinking removed the pen from her leg. She tried to put it back into her leg to get therest of the medication but is unsure how much she received from the first pen. She successfully inje cted the second pen to complete the Day 1 loading dose. Her initial question was if she should inject another pen to make up for the mishap with the first injection. Since she got some of the first dose and it cannot be confirmed how much she did or didn't get I advised her that it is NOT recommended that she give herself another injection. The injection technique was reviewed and based on the conversation, its seems like she may have done the injections without letting the alcohol fully dry on her skin first. She also gave the injection on the top of her thigh fci between the knee and hip which likely went into the muscle. The correct injection technique and sites were reviewed along with the recommendation to let the alcohol dry on the skin first to avoid that stinging feeling. The schedule was reviewed for the rest of the loading doses and the start of the maintenance regimen. She confirmed understanding and all of her questions were answered. Clinic follow-up needed: no Was a change made to the Care Plan: no If yes, should the medication be held: No Pt understands no changes to current drug regimen were made at the appointment and that [facility] is providing recommendations (summary located at top of note) for provider review and follow up. Danna Correa, PharmD, [facility] 11/24/20 1:02 PM Time spent on this encounter: 25 minutes documented in this encounter Plan of Treatment Upcoming Encounters Date Type Department Care Team (Late st Contact Info) Description 02/01/2025 2:15 PM EDT Office Visit Dermatology at [facility] [address] [place] [address] Regina Rivas MD [facility] DR [place] [address] documented as of this encounter Visit Diagnoses Not on filedocumented in this encounter Care Teams Eligibility Consultant Relationship Specialty Start Date End Date Carolynn Wisdom APRN [address] [place] [address] [address] [facility] [address] [place] [address] PCP - General Family Medicine 03/08/20 documented as of this encounter
--- OUTSIDE RECORDS SUMMARY | 2024-01-17 18:06 | XMS_ITS | Encounter Summary ---
Author Organization [facility] Address [facility] [place] [address] Care Team Providers Care Upholsterer Assembly Line Name Role Phone Carolynn Wisdom APRN Primary Care Provider Encounter Details Date Type Department Care Team (Late st Contact Info) Description 12/15/2020 Refill Dermatology at [facility] [address] [place] [phone] Lisa Vasquez MD [facility] [address] [place] [address] Inverse psoriasis Social History Tobacco Use Types [...] [facility] [address] [place] [phone] Regina Rivas MD [facility] DR [address] [place] [address] documented as of this encounter Visit Diagnoses Diagnosis Inverse psoriasis Other psoriasis documented in this encounter Care Teams Upholsterer Assembly Line Relationship Specialty Start Date End Date Carolynn Wisdom APRN [address] [place] [address] [place] [address] PCP - General Family Medicine 03/08/20 documented as of this encounter
--- OUTSIDE RECORDS SUMMARY | 2024-01-17 18:06 | XMS_ITS | Encounter Summary ---
Author Organization [facility] [place] [address] Care Team Providers Care Benefits Clerk Name Role Phone MelodieCarolynn judd CANDE Primary Care Provider [phone] Encounter Details Date Type Department Care Team (Late st Contact Info) Description 09/05/2021 9:00 AM EST TH Visit (TeleHealth) Weight and Wellness at [address] [address] Adult BMI 38.0-38.9 kg/sq m Social History Tobacco Use Types [...] - Inhaled Oxygen Concentration - - Weight 99.7 kg (219 lb 12.8 oz) 09/05/2021 9:10 AM EST pt reported Height 161.3 cm (5' 3.5) 09/05/2021 9: 10 AM EST Body Mass Index 38.33 09/05/2021 9:10 AM EST documented in this encounter Patient Instructions * Patient Instructions* Yessy Jonas RD - 09/05/2021 10:01 AM EST Nutrition Goals: Track food intake - baritastic, bariatricpal, myfitnesspal Establish exercise routine - continue walking weekly, goal aerobic exercise 150 minutes per week and/or 10,000 steps per day; add resistance exercise to routine - exercise bands, yoga, etc. Choose protein at every eating event Separate eating and drinking by 30 minutes documented in this encounter Progress Notes * Yessy Jonas RD - 09/05/2021 9:00 AM EST Nutrition Intervention for Weight Management Initial RD visit with TAWANNA Jiménez 1960 Assessment/Nutrition Diagnosis: Pt at increased nutritional risk related to excessive calorie intake and sub optimal physical activity resulting in overweight/obesity as evidenced by BMI and diet recall Telehealth / telephone visit conducted while patient was at home at the following address: [address] [place] [address] [facility] [address] Weight Today: has scale, typically weighs daily - bit of an addiction Wt Readings from Last 3 Encounters: 09/05/21 99.7 kg (219 lb 12.8 oz) 08/08/21 99.8 kg (220 lb) BMI Readings from Last 3 Encounters: 09/05/21 38.33 kg/m?? 08/08/21 38.97 kg/m?? 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); after second child shot up in weight and never came down; 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; moved to [place] and started to gain again; has preference to starch/carbohydrates; daughter had bariatric surgery in last year; wants to try to lose weight before agreeing to bariatric surgery See previous notes from this service writer advisor and [facility] provider for full account Typical Dietary Intake: Wakeup - 5:30, not always rested, not hungry; water, take medications 6 am B: 12oz coffee, 2 tbsp dallop / and 07/02 8-9 first feel hungry 8am B: 1.5 cups cereal - pentecostalism oatmeal squares, 2% milk OR armenian muffin - wheat, peanut butter OR cream of wheat 1 packet - sugar free diced pears, milk 10am midmorning snack - grapes/watermelon OR ritz - 8 12:30/1:30 L: grapes/1/2 apple, ritz crackers - 8, 1/2 PBJ - wheat, grape jelly; yogurt - plain nigerian yogurt; 5-6pm D: pizza - naan; frozen yogurt OR 1/4 chicken breast, spinach, baked potato Bedtime - 9pm, no trouble falling, sometimes trouble staying asleep - stress work related >180BS - told to drink water Typical Beverages: coffee 1-1.5x/day; water - 24 ounces 1x/day, carbonated; 16 ounce plain water per day; hot tea - green tea, no caffeine; 1/2-3/4 cup wine 1x/week on average; occasional seltzer; milk occasionally in evening 4-6oz 1x/week; Appetite/Hunger: [x] feels managed with foods/meals outlined above [] discussed meal/snack schedule adjustment today- see goals [] patient identifies eating for reasons other than hunger- see interview above [] Current food Tracking [x] discussed potential benefit starting food tracking - [...] times a week -can use therabands ??? sleep ?? Continue to work with sleep at [facility] ?? Goal 7 hours of sleep nightly. ?? Recommend consistent sleep and wake times, avoid electronics within one hour of sleep time ??? stress management ?? Mindfulness/deep breathing practice to reduce cortisol -try for at least 10 minutes a day Bariatric eating behaviors introduced or reviewed: [] Stop eating at comfortable full point (eating slowly to know, chewing thoroughly) [] Any binging identified? (6 months no binging prior to surgery) [x] Regular meal pattern, avoid grazing, reasonable snack frequency [x] Plan protein at all meals and snacks, eat protein first [] Total water intake [x] eating and drinking by 30 minutes on either side [x] Sip rather than gulp [x] Reduce coffee intake down to ~1 cup (caffeine) prior to surgery [] Reduce alcohol, ideally avoid [] Currently smoking? 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 (OR) [x] Currently scheduled for: [x] 1st consecutive monthly nutrition visit [x] 2nd consecutive monthly nutrition visit [x] 3rd consecutive monthly nutrition visit (OR) [] Patient has met requirement of 3 consecutive monthly nutrition visits but agrees that ongoing support would be helpful and feasible. Above determined to the best ability of this service writer advisor. Patient will contact bariatric surgery team for any official determination about about scheduling and insurance requirements ( ) Thank you Yessy Jonas MS RDN LD 60 minutes were spent in visit today, including contact with patient, chart review, and documentation documented in this encounter Plan of Treatment Upcoming Encounters Date Type Department Care Team (Late st Contact Info) Description 02/01/2025 2:15 PM EDT Office Visit Dermatology at [facility] [address] [place] [phone] Regina Rivas MD [facility] [place] [address] documented as of this encounter Goals Goal [...] sleep time movement Lifestyle No Michelle Jaquez, SERVER SERVICE ASSISTANT Note: Exercise goal is 150 -300 min [...] this encounter Visit Diagnoses Diagnosis Adult BMI 38.0-38.9 kg/sq m Body Mass Index 38.0-38.9, adult documented in this encounter Care Teams Benefits Clerk Relationship Specialty Start Date End Date Carolynn Wisdom APRN [address] [place] [address] PCP - General Family Medicine 03/08/20 documented as of this encounter
--- OUTSIDE RECORDS SUMMARY | 2024-01-17 18:06 | XMS_ITS | Encounter Summary ---
Author Organization [facility] [place] [address] Care Team Providers Care Laminating Machine Offbearer Name Role Phone Carolynn Wisdom APRN Primary Care Provider Reason for Visit * Reason Comments Prior Authorization humira pen-ps/uv/ado l hs st 40 pnkt Encounter Details Date Type Department Care Team (Late st Contact Info) Description 11/21/2020 Specialty [place] [address] Ibeth Bermudez, ORCHARD SPRAYER Social History Tobacco Use Types Packs/Day Years Used Date Smoking Tobacco: Former Smokeless Tobacco: Never Sex and Gender Information Value Date Recorded Sex Assigned at Not on file Gender Identity Not on file Sexual Orientation Not on file documented as of this encounter Progress Notes * Ibeth Roger - 11/21/2020 11:34 AM EDT [facility], Medication Prior Authorization Patient: Melinda Goncalves Patient : 1960 Patient Address: [address] [place] [id number] (home) Medication Name: HUMIRA PEN VIGCGMFYR-[id number] HID SUP START 40 MG/0.8 ML SUBCUT KT Medication ID: [id number] Patient Location: [facility] Patient Location Comment: Subscriber Insurance: Ruel ATWOOD (N IS) Subscriber Insurance Comment: Phone: Fax: Physician: MAXI MASON Physician Comment: Sent Via: [facility] Oneal: [id number] Ref/Case/PA#: Medication Strength Frequency Requested: INJECT THE CONTENTS OF TWO PENS (80MG) SUBCUTANEOUSLY ONCEON DAY 1, THEN INJECT THE CONTENTS OF ONE PEN (40MG) SUBCUTANEOUSLY ON DAY 8, THEN INJECT THE CONTENTS OF ONE PEN (40MG) SUBCUTANEOUSLY ONCE EVERY 14 DAYS THEREAFTER Qty/Day Supply: New Start: New to Therapy Diagnosis & ICD-10 Code: L40.9 Patient Notified: Yes Submission Notes: None Ibeth Roger 11/21/20 11:38 AM * Ibeth Roger - 11/21/2020 11:34 AM EDT [facility], Prior Authorization Approval Medication Name: HUMIRA PEN [id number] HID SUP START 40 MG/0.8 ML SUBCUT KT Medication ID: [id number] Approval Dates: 11/21/2020 to 11/21/2021 Insurance requirements/notes: None Other Notes: None Case/Reference #: [id number] Approval notification Received via: Fax Copay: $5.00 Copay assistance: Copay Notes: Insurance mandated Pharmacy: [facility] Fill[facility] at [facility]: Yes Pharmacy staff will be reaching out to the patient to inform them of their medication's approval [employer]ia [employer] health insurance. If applicable, a pharmacist will speak with the patient to offer our specialty pharmacy services and to arrange delivery of their medication. Ibeth Roger 11/21/20 2:32 PM documented in this encounter Plan of Treatment Upcoming Encounters Date Type Department Care Team ([facility] st Contact Info) Description 02/01/2025 2:15 PM EDT Office Visit Dermatology at [facility] [address] [place] [address] Regina Rivas MD [facility] [place] [address] documented as of this encounter Visit Diagnoses Not on filedocumented in this encounter Care Teams Laminating Machine Offbearer Relationship Specialty Start Date End Date Carolynn Wisdom APRN [address] [place] [address] PCP - General Family Medicine 03/08/20 documented as of this encounter
--- OUTSIDE RECORDS SUMMARY | 2024-01-17 18:06 | XMS_ITS | Encounter Summary ---
Author Organization [facility] Address [facility] [place] [address] Care Team Providers Care Extrusion Utility Worker Name Role Phone Carolynn Wisdom APRN Primary Care Provider [phone] Reason for Visit * Consultation (Routine) - Closed Specialty Diagnoses / Procedures Referred By Bay mckeon Referred To Contact Dermatology Diagnoses Erythema intertrigo Carolynn Wisdom APRN [address] [place] [address] [facility] Dermatology [address] [place] [address] Referral ID Status Reason Start Date Expiration Date V isits Requested Visits Authorized [id number] Closed Consult, Test & Treat Connection Center PCP Updated and/or Approved 10/28/2020 10/28/2021 6 6 Encounter Details Date Type Department Care Team (Late st Contact Info) Description 08/18/2021 1:20 PM EST Office Visit Dermatology at [facility] [address] [place] [phone] Lisa Vasquez MD [facility] [address] [place] [address] Inverse psoriasis Social History Tobacco Use Types Packs/Day Years Used Date Smoking Tobacco: Former Smokeless Tobacco: Never Sex and Gender Information Value Date Recorded Sex Assigned at Not on file Gender Identity Not on file Sexual Orientation Not on file documented as of this encounter Progress Notes * Lisa Vasquez E - 08/18/2021 1:20 PM EST Images from the original note were not [...] history (i.e. eczema, psoriasis, birthmarks, immunosuppression) N ??Inverse Psoriasis - started Humira 11/2020, d/c 05/2021 due to diarrhea and lack of improvment - currently on Stelara started 07/2021 FAMILY HISTORY Y/N If yes, details Melanoma N ?? NMSC N ?? Other relevant family history N ?? 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 No ?? History of Present Illness: Melinda Goncalves is a 61 y.o. Patient returns to clinic for a follow up of inverse psoriasis, she is currently treating with Stelara which she started recently and has had 2 doses of since her last appointment, she notes that within 24 hours of the injections the rash seems to dry up and get better, she is also still using her topical medications about once a day in theaffected areas and needs a refill of the clobetasol ointment Review of Systems: General: Feeling well. Skin: No other skin concerns. Medications: Reviewed in eD-H Allergies: Reviewed in eD-H Skin Examination: Focused skin examination of the chest, arms, abdomen was normal with the exception of the findings below. Assessment/Plan # Inverse Psoriasis, improving -??In bilateral axillae and under bilateral breasts are well-demarcated bright pink shiny plaques with slight overlying scale. Erythematous plaques in scalp and conchalbowls. BSA: ~6%, improved from previous - previously treated with Humira but was not well tolerated, she has been tolerating the Stelara well at this point. 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 PLAN: -Continue Rx: Calcipotriene 0.005% cream apply to affected areas BID during the week , we will try to get Rx: Protopic ointment covered to replace the calcipotriene on the weekdays -Use Rx: Clobetasol 0.05% ointment use BID on weekends only -- recommended moisturizing dry areas with plain vaseline -- continue Rx: Clobetasol solution Apply topically to the scalp twice a day for two weeks then take a week off and repeat - continue Rx: Stelara 90mg SC Q12 weeks - recommended T-nghia shampoo alternating with regular shampoo RTC: 3-4 months for inverse psoriasis []Note routed to corporate secretary []Recall placed in scheduling system []Appointment scheduled at checkout Scribe attestation: Flaquito Allen [facility] has performed the documentation for this encounter in the presence of and acting as a scribe for Lisa Vasquez MD. I performed the above scribed service and agree with the accuracy of the documentation in this encounter. Reviewed and signed by: Lisa Vasquez MD Dermatology [facility] Patient seen and evaluated with staff electrician powerhouse: Hina Shi MD Department of Dermatology [facility] * Hina Shi MD - 08/18/2021 1:20 PM EST I directly supervised Dr. Vasquez during this office visit. Dr. Vasquez presented the history and physical exam to me. I, then, saw and examined this patient with Dr. Vasquez. We reviewed the history and pertinent details and I confirmed the physical findings. I agree with the details of the history and physical exam as documented in Dr. Vasquez's note. Hina Shi MD Staff Physician documented in this encounter Plan of Treatment Upcoming Encounters Date Type Department Care Team (Late st Contact Info) Description 02/01/2025 2:15 PM EDT Office Visit Dermatology at [facility] [address] [place] [address] Regina Rivas MD [facility] [place] [address] documented as of this encounter Goals Goal [...] Note: Continue to work with sleep at [facility] Goal 7 hours of sleep nightly. Recommend consistent sleep and wake times, avoid electronics within one hour of sleep time movement Lifestyle No Michelle Jaquez, [employer] WELDER Note: Exercise goal is 150 -300 min a week, prioritize self so you have time to exercise Recommend resistance training 3 times a week -can use therabands documented as of this encounter Visit Diagnoses Diagnosis Inverse psoriasis Other psoriasis documented in this encounter Care Teams Extrusion Utility Worker Relationship Specialty Start Date End Date Carolynn Wisdom APRN [address] [place] [address] PCP - General Family Medicine 03/08/20 documented as of this encounter
--- OUTSIDE RECORDS SUMMARY | 2024-01-17 18:06 | XMS_ITS | Encounter Summary ---
Author Organization [facility] Address [facility] [place] [address] Care Team Providers Care Digital Sales Representative Name Role Phone Carolynn Wisdom APRN Primary Care Provider Reason for Visit * Consultation (Routine) - Closed Specialty Diagnoses / Procedures Referred By Bay mckeon Referred To Contact Dermatology Diagnoses Erythema intertrigo Carolynn Wisdom APRN [address] [place] [address] [facility] Dermatology [address] [place] [address] Referral ID Status Reason Start Date Expiration Date V isits Requested Visits Authorized [id number] Closed Consult, Test & Treat Connection Center PCP Updated and/or Approved 10/28/2020 10/28/2021 6 6 Encounter Details Date Type Department Care Team (Late st Contact Info) Description 06/19/2021 8:40 AM EST Office Visit Dermatology at [facility] [address] [place] [address] Lisa Vasquez MD [facility] [place] [address] High risk medication use; Inverse psoriasis; Intertrigo Social History Tobacco Use Types Packs/Day Years Used Date Smoking Tobacco: Former Smokeless Tobacco: Never Sex and Gender Information Value Date Recorded Sex Assigned at Not on file Gender Identity Not on file Sexual Orientation Not on file documented as of this encounter Progress Notes * Lisa Vasquez - 06/19/2021 8:40 AM EST Images from the original note were not included. DEPARTMENT OF DERMATOLOGY Medical Dermatology Clinic Provider: Lisa Vasquez MD Patient's preferred name Melinda Patient's preferred pronouns She/Her/Hers Preferred contact method for results [x]? myDH []? Letter []? Phone: cell Detailed [...] N ?? SOCIAL HISTORY Occupation: works in [employer] Hobbies: Other: Diagnosis or treatment significantly limited [...] the weekends and calcipotriene during the week. Experiencing anal leakage that has continued for two months now. Got Moderna booster so missedHumira dose this past month. Currently Using: Clobatesol cream and oinment Protropic Ketoconazole cream Last visit at [facility] Derm: 02/14/2021 Last visit with this provider: 02/14/2021 Medications: Reviewed in eD-H Allergies: Reviewed in [...] in scalp and conchal bowls. BSA: ~12%, not improved from previous -Has been on Humira since November with some improvement but has now plateaued. She also endorses diarrhea for the past 3 months which is new for her, discussed that this may be a side effect of humira. Discussed switching to alternative class of medication (not anti-TNF) given lack of response to anti-TNF as well as diarrhea. Patient is agreeable to this plan. 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 Quant gold, Hep B and Hep C done in 10/2020 and WNL. No need to repeat today The first 2 injections are at 0 weeks and 4 weeks, then injections are every 12 weeks -ustekinumab is an antibody which blocks IL-12 and IL-23, a different molecular target in inflammation than in other biologic medications. Discussed efficacy profile of 80% responding to achieve clearance of PASI 75. - we discussed the side effect profile of ustekinumab, theoretical increase in the risk of infections and malignancy If not acheving complete response in 3 months can consider increasing to 90mg SC RX: 45mg SC injection day 0 and then in 4 weeks Maintenance dose 45mg SC Q12 weeks Intertrigo- White macerated plaques under right inframmary [...] 2 months for psoriasis [x]Note routed to medical secretary []Recall has been placed in scheduling system []Appointment scheduled at checkout Scribe attestation: Samantha Xavier has performed the documentation for this encounter in the presence of and acting as a scribe for Lisa Vasquez MD I performed the above scribed service and agree with the accuracy of the documentation in this encounter. Reviewed and signed by: Lisa Vasquez MD Dermatology [facility] Patient seen and evaluated with staff printer apprentice: Lucius Gamboa MD Dermatology [facility] * Lucius Gamboa MD - 06/19/2021 8:40 AM EST I directly supervised Dr. Vasquez during this office visit. Dr. Vasquez presented the history and physical exam to me. I, then, saw and examined this patient with Dr. Vasquez . We reviewed the history and pertinent details and I confirmed the physical findings. I agree with the details of the history and physical exam as documented in Dr. Vasquez's note. LUCIUS GAMBOA MD Staff Physician documented in this encounter Plan of Treatment Upcoming Encounters Date Type Department Care Team (Late st Contact Info) Description 02/01/2025 2:15 PM EDT Office Visit Dermatology at [facility] [address] [place] [address] Regina Rivas MD [facility] [place] [address] documented as of this encounter Procedures Procedure Name Priority Date/Time Associated Diagnosis Comments HEMOGRAM Routine 06/19/2021 9:55 AM EST High risk medication use DIFFERENTIAL, AUTOMATED Routine 06/19/2021 9:55 AM EST High risk medication use HC CBC,PLT & AUTO DIFF Routine 06/19/2021 9:55 AM EST High risk medication use HC VENIPUNCTURE Routine 06/19/2021 9:55 AM EST High risk medication use documented in this encounter Results * Differential, Automated (06/19/2021 9:55 AM EST) Neutrophils % 51.3 % [facility] Neutr Abs (ANC) 2.73 1.70 - 6.10 x10(3)/[facility] Lymphocytes % 31.7 % [facility] Lymphocytes Abs 1.7 0.9 - 3.2 x10(3)/[facility] Monocytes % 10.1 % [facility] Monocyte Abs 0.5 0.3 - 0.9 x10(3)/[facility] Eosinophils % 5.4 % [facility] Eosinophils Abs 0.3 0.0 - 0.4 x10(3)/[facility] Basophils % 1.3 % [facility] Basophils Abs 0.1 0.0 - 0.1 x10(3)/[facility] Immature Gran % 0.20 % [facility] Comment: Immature granulocytes(IG's)percentage and absolute count will include metamyelocytes, myelocytes, and promyelocytes. Blood smears from CBCs yielding IG's will be scanned manually for concordance. If this scan disagrees with the automated IG or if promyelocytes are noted, a manual differential will be performed. Micki Gran Abs 0.01 0.00 - 0.04 x10(3)/[facility] Blood 06/19/2021 9:55 AM EST 06/19/2021 12:59 PM EST Narrative Resulting Agency Comment Spec In Lab Lisa Vasquez MD HEMATOLOGY ORDERAB LES [facility] [place] [address] * Hemogram (06/19/2021 9:55 AM EST) WBC 5.3 4.0 - 9.5 x10(3)/[facility] RBC 4.51 4.00 - 5.21 x10(6)/[facility] Hemoglobin 13.1 11.7 - 15.5 g/dL [facility] Hematocrit 40.3 35.7 - 45.8 % [facility] MCV 89.4 82.6 - 94.4 fL [facility] MCH 29.0 27.1 - 32.0 pg [facility] MCHC 32.5 31.7 - 35.0 g/dL [facility] Platelets 227 145 - 357 x10(3)/[facility] RDWSD 43.4 37.0 - 46.0 fL [facility] RDWCV 13.2 11.5 - 14.1 % [facility] MPV 11.3 7.6 - 12.9 fL [facility] nRBC % Auto 0.0 % [facility] nRBC Abs Auto 0.000 0.000 - 0.000 x10(3)/[facility] Blood 06/19/2021 9:55 AM EST 06/19/2021 12:59 PM EST Narrative Resulting Agency Comment Spec In Lab Lisa Vasquez MD HEMATOLOGY ORDERAB LES [facility] [place] [address] * Comprehensive metabolic panel (non-fasting) (06/19/2021 9:55 AM EST) Glucose Lvl 187 65 - 199 mg/dL [facility] Comment:Diabetes: >=200 mg/d L plus symptoms BUN 10 8 - 18 mg/dL [facility] Creatinine 0.82 0.70 - 1.20 mg/dL [facility] Sodium 139 135 - 145 mmol/L [facility] Potassium 4.0 3.5 - 5.0 mmol/L [facility] Comment: Please note: ??Patients with WBC >100,000 may have falsely elevated Potassium levels. ??For accurate Potassium quantification in these patients send serum separator tube (gold top) for subsequent determinations. ??Contact the Clinical Chemistry Laboratory if there are any questions. Chloride 102 98 - 107 mmol/L [facility] CO2 26 22 - 31 mmol/L [facility] Anion Gap 11 5 - 15 mmol/L [facility] Calcium 9.7 8.5 - 10.5 mg/dL [facility] Total Protein 7.0 6.1 - 8.0 g/dL [facility] Albumin 4.3 3.2 - 5.2 g/dL [facility] AST 20 0 - 30 unit/L [facility] ALT 21 0 - 30 unit/L [facility] Alk Phos 64 35 - 105 unit/L [facility] Total Bilirubin 0.4 0.2 - 1.3 mg/dL [facility] Estimated GFR 78 >=60 mL/min/1. 73 m?? [facility] Comment: This patient? s estimated glomerular filtration rate (eGFR) is between 78 mL/min/1.73 m2 (patients with less muscle mass) and 90 mL/min/1.73 m2 (patients with more muscle mass) as determined by the CKD-EPI equation. Assessment of eGFR is not appropriate when creatinine concentrations are rapidly changing. For clinical decisions where creatinine clearance will affect therapy, a 24-hour urine creatinine clearance may be advised. Assignment of CKD stage 1 - 5 for patients with an eGFR near the transition point between stages may be based on clinical assessment of muscle mass and symptoms in addition to eGFR. Blood 06/19/2021 9:55 AM EST 06/19/2021 12:54 PM EST Narrative Resulting Agency Comment Spec In Lab Lucius Gamboa MD CHEMISTRY ORDERABLES [facility] [place] [address] documented in this encounter Visit Diagnoses Diagnosis High risk medication use Encounter for long-term (current) use of other medications Inverse psoriasis Other psoriasis Intertrigo Other specified erythematous condition documented in this encounter Care Teams Digital Sales Representative Relationship Specialty Start Date End Date Carolynn Wisdmo APRN [address] [place] [address] PCP - General Family Medicine 03/08/20 documented as of this encounter
--- OUTSIDE RECORDS SUMMARY | 2024-01-17 18:06 | XMS_ITS | Encounter Summary ---
Author Organization [place] [address] Care Team Providers Care Care Analyst Name Role Phone MelodieCarolynn judd CANDE Primary Care Provider Encounter Details Date Type Department Care Team (Late st Contact Info) Description 11/16/2021 Telephone General Surgery at [facility] [place] [place] [phone] Anitha Cruz Social History Tobacco Use Types Packs/Day Years Used Date Smoking Tobacco: Former Smokeless Tobacco: Never Sex and Gender Information Value Date Recorded Sex Assigned at Not on file Gender Identity Not on file Sexual Orientation Not on file documented as of this encounter Miscellaneous Notes * Telephone Encounter - Anitha Cruz - 11/16/2021 12:46 PM EDT Melinda called to get an update on where she is in the bariatric surgery program process. We did a chart review and the following details what we are still in need of... 1. PCP letter of support - patient has a visit with the PCP on 11/17 and will have the letter done. 2. Step 2 forms - she will complete 3. Psych eval - she is waiting for [facility] to call her to schedule as discussed in her visit today withLeah Jaquez 4. Colonoscopy - she will have her last one faxed to us 5. Sleep study results - this has been scheduled and she will let us know when done documented in this encounter Plan of Treatment Upcoming Encounters Date Type Department Care Team (Late st Contact Info) Description 02/01/2025 2:15 PM EDT Office Visit Dermatology at [address] [place] [address] Regina Rivas MD [facility] [place] [address] documented as of this encounter Goals Goal [...] Continue to work with sleep at [facility] Goal 7 hours of sleep nightly. Recommend consistent sleep and wake times, avoid electronics within one hour of sleep time movement Lifestyle No Michelle Jauqez APRN Note: Exercise goal is 150 -300 [...] on filedocumented in this encounter Care Teams Care Analyst Relationship Specialty Start Date End Date Carolynn Wisdom APRN [address] [place] [address] PCP - General Family Medicine 03/08/20 documented as of this encounter
--- OUTSIDE RECORDS SUMMARY | 2024-01-17 18:06 | XMS_ITS | Encounter Summary ---
Author Organization [facility] Address [facility] [place] [address] Care Team Providers Care A Auxiliary Name Role Phone Carolynn Wisdom APRN Primary Care Provider Reason for Referral * Consultation (Routine) - Closed Specialty Diagnoses / Procedures Referred By Contac t Referred To Contact Weight and Wellness Diagnoses Class 2 severe obesity due to excess calories with serious comorbidity and body mass index (BMI) of 38.0 to 38.9 in adult Michelle Jaquez [employer] ARCHITECT [facility] [place] [address] [facility] [address] [place] [address] Referral ID Status Reason Start Date Expiration Date V isits Requested Visits Authorized [id number] Closed Consult, Test & Treat 08/08/2021 08/08/2022 1 1 Reason for Visit * Consultation (Routine) - Closed Specialty Diagnoses / Procedures Referred By Contac t Referred To Contact Weight and Wellness Diagnoses Obesity, unspecified obesity Procedures pre-bariatric see notes Marjorie Holman [employer] ARCHITECT [facility] [place] [address] [facility] [address] [place] [address] Referral ID Status Reason Start Date Expiration Date V isits Requested Visits Authorized [id number] Closed Consult, Test & Treat 07/13/2021 07/13/2022 1 1 Encounter Details Date Type Department Care Team (Latest Contact Info) Description 08/08/2021 9:00 AM EST TH Visit (TeleHealth) Weight and Wellness at [facility] [address] [place] [id number] Michelle Jaquez, CANDE [facility] [address] [facility] OLIV[facility] [address] Class 2 severe obesity due to excess calories with serious comorbidity and body mass index (BMI) of 38.0 to 38.9 in adult; Type 2 diabetes mellitus without complication, without long-term current use of insulin; Encounter for pre-bariatric surgery counseling and education Social History Tobacco Use Types Packs/Day Years [...] - Inhaled Oxygen Concentration - - Weight 99.8 kg (220 lb) 08/08/2021 9:00 AM EST Height 160 cm (5' 3) 08/08/2021 9:00 AM EST Body Mass Index 38.97 08/08/2021 9:00 AM EST documented in this encounter Patient Instructions * Patient Instructions* Michelle Jaquez, CANDE - 08/08/2021 12:25 PM EST From our visit today: It was great to meet you! Below are the goals we talked about. Below is a list of anti obesity medications. Let me know if you have any questions or need anything! Medications which can help with weight loss in combination with lifestyle changes (healthy diet andactivity): Please note that weight loss amounts vary widely among people; some people respond well to a certain medication and others do not. Qsymia is a combination of phentermine and topiramate. Qsymia is a brand name medication and not always covered by insurance. We also sometimes give phentermine and topriamate separately for weight loss. Phentermine is a stimulant. It can increase anxiety and cause jitteriness and sleep disturbance in some patients. It has a potential for abuse and dependence which is low but not zero. It is a controlled substance. Use of phentermine alone for weight loss for more than 3 months is an off-label use.Qsymia is FDA approved for watermelon inspector use. Regarding phentermine alone: Phentermine is approved by the FDA for the purpose of weight loss. This medication should be avoided in patients with a history of cardiovascular disease (including prior heart attack, known aneurysms or prior strokes), as well as a history of uncontrolled high blood pressure or tachyarrhythmias (fast heart rate) . It should also usually be avoided in patients with hyperthyroidism, seizures, severe anxiety, narrow angle glaucoma or bipolar disorder. Patients on this medication should be monitored with regards to blood pressure and heart rate. Potential side effects include (but are not limited to) palpitations, jitteriness, headaches, insomnia, constipation and eye pain. Patients should take phentermine before breakfast. They should avoid energy drinks, decongestants, and excessive caffeine while on phentermine. They should monitor their blood pressure and heart rate at home (and be encouraged to purchase a blood pressure cuff). Patient needs to remember to HOLD the phentermine for one week before surgery or other procedures requiring sedation such as colonoscopy. Check with prescriber about whether the medication needs to be tapered. How does phentermine work? It stimulates the hypothalamus to release norepinephrine. Works as appetite supressant. Expected weight loss: 5-7.5%. Expected weight loss from phentermine plus topiramate (Qsymia) 6.5-10% Topiramate is used for treating seizures, migraine headaches, and can be helpful for weight loss. For weight loss we start with very small doses which are usually well-tolerated, however it sometimescauses fatigue, tingling of the hands and feet, mood changes or mental fogginess as well as multiple other possible side effects. It should be used with caution in someone who has had kidney stones. It is totally contraindicated in , so for women of childbearing age two methods of contraception and monthly tests, or a permanent method of contraception are required on this medication. Use of topiramate alone for weight loss is an off-label use. How does topiramate work? Decreases food intake by DEIRDRE receptor modulation. Contrave: This is a combination of the antidepressant bupropion and the opioid mary naltrexone. Bupropion can help with depression. It can be activating and can sometimes increase anxiety. It can sometimes cause an increase in blood pressure and heart rate, insomnia, headache, agitation, dizziness, dry mouth, constipation, nausea, tremor and other possible side effects. Usual weight loss with Contrave: 4.5-6%. We avoid naltrexone plus bupropion in patients who have: Seizure disorder, severe anxiety, uncontrolled migraine disorder, atherosclerotic vascular disease, uncontrolled high blood pressure, chronic narcotic use, anorexia nervosa or bulimia nervosa. It can be helpful in patients who are smokers or patients with depression since bupropion can help with depression and can sometimes help with smoking cessation. We would stop Contrave in patients who are taking it who develop worsening migraines, uncontrolled high blood pressure, liver dysfunction, worsening depression, or suicidal ideation. Bupropion can lower the seizure threshold. Naltrexone is an opiod mary which can help to reduce appetite and cravings in some patients. It can also decrease the desire for alcohol and is sometimes used for alcohol overuse problems. It willblock the effects of narcotics such as percocet. It needs to be held for 3-4 days before a procedure requiring anesthesia. Possible naltrexone side effects include: nausea, headache, anxiety, diarrhea, constipation,dizziness, fatigue, mood changes, joint pain, sleep trouble and other possible side effects. How does bupropion work? Norepinephrine and dopamine reuptake inhibitor. Stimulates MC4R from POMC neurons. How does naltrexone work? Blocks inhibitory action of beta endorphins. Can reduce the reward feeling from food. The combination of bupropion and naltexone decreases hunger by strengthening within meal satiation (fullness) and post-meal satiety. Using either naltrexone or bupropion alone for weight loss in an off-label use. Metformin is a medication used for diabetes and prediabetes which can also sometimes help with weight loss. Metformin is helpful for weight loss in about one third of patients who take it. It can be useful in slowing or helping to prevent the progression to diabetes. It can cause gastrointestinal side effects such as nausea and loose stool. If started at a low dose and increased gradually, it is usually tolerated. This medication has been around for more than 40 years and we have a lot of experience with it. We avoid metformin in people with severe kidney impairment or severe liver disease. Metformin can be helpful for people who gain weight on certain psychiatric medications, have polycystic ovary syndrome, have elevated fasting insulin, have metabolic syndrome or elevated fasting glucose (prediabetes). However it also help with weight loss in overweight patients who have none of these conditions. We recommend that patients take metformin take a B complex vitamin or multivitamin. There is a rare condition called lactic acidosis which can occur with metformin. Metformin should be HELD if the patient becomes dehydrated for any reason or is having a medical study involving dye. How does metformin work? Decreases liver glucose (sugar) production. Decreases intestinal glucose uptake. Decreases food intake by modulating signaling pathway of NPY neurons, leptin and GLP-1 (body chemicals involved in appetite and weight regulation). Use of metformin purely for weight loss is an off-label use. GLP-1 agonists (Liraglutide, semaglutide help most for weight loss. Other members of this family include dulaglutide and others. These meds can be expensive; insurance coverage varies. Liraglutide (Victoza, Saxenda) Liraglutide is a medication developed for diabetes which is also used for weight loss in people whodo not have diabetes. Brand names are Victoza and Saxenda. This medication requires daily injection. It should not be used in people who have a personal or family history of medullary thyroid cancer,and should not be used in most people who have had pancreatitis. We only give liraglutide to peoplewho have no personal or family history of medullary thyroid cancer or MEN type 2. Discussion of potential risks and benefits needs to be done before using liraglutide in a patient with a history of pancreatitis. Side effects can include: GI upset (nausea, vomiting, diarrhea, constipation); these side effects normally improve after 2-3 weeks on the medication. Liraglutide can results in 7.5 to 9% weight loss. Semaglutide is a similar medication to Liraglutide. The injectable form is given once per week and is called Ozempic. The higher doses of semaglutide which are FDA approved for weight loss are calledWegovy.The oral form is called Rybelsus and is given once daily; this form is less effective for weight loss than the injectable forms. How do GLP-1 agonists work? Enhance insulin secretion and reduce glucagon secretion. Slow the emptying of the stomach. Inhibit food intake by inhibiting the NPT/AgRP neurons and stimulatin the POMC/CART neurons. SGLT-2 inhibitors (for patients with diabetes only): Canagliflozin (Invokana) and other medicationsending in flozin. These medications work by increasing the amount of sugar which is excreted in the urine. Weight loss is very modest with these medications alone, but they can be useful when addedto other medications. Some of these meds are used off label for weight loss. With anti-obesity medication, loss of 5 to10% of weight is considered a good response. Patients needs to be seen regularly in the Weight and Wellness clinic (sometimes monthly at first and usually at least every 3 months) for monitoring while taking anti- obesity medication. None of these medications ( with the possible exception of metformin) are safe for use during . Anti-obesity medications only work when combined with diet and activity efforts. If the patient responds well to a medication and then that medication is stopped, usually the weight is re-gained. Goals Addressed This Visit's Progress meal timing/food choices/ bariatric behaviors Work on [...] first at each meal and eating episode movement Exercise goal is 150 -300 min a week, prioritize self so you have time to exercise Recommend resistance training 3 times a week -can use therabands sleep Continue to work with sleep at [facility] Goal 7 hours of sleep nightly. Recommend consistent sleep and wake times, avoid electronics within one hour of sleep time stress management Mindfulness/deep breathing practice to reduce cortisol -try for at least 10 minutes a day Medications 08/08/21 1221 Medication Sig Taking? BLOOD SUGAR DIAGNOSTIC, DISC MISC by NOT APPLICABLE route. lancets Misc by NOT APPLICABLE route. Blood-Glucose Meter Misc by NOT APPLICABLE route. Insulin Glentana, Disposable, 29 gauge Needle by NOT APPLICABLE route. aspirin EC 81 mg Tablet, Delayed Release (E.C.) Take by mouth. ustekinumab (Stelara) 90 mg/mL subcutaneous injection Inject 90mg subcutaneously at weeks 0, 4 and every 12 weeks thereafter ustekinumab (Stelara) 90 mg/mL subcutaneous injection Inject 90mg subcutaneously at week 4 and every 12 weeks thereafter Lantus Solostar U-100 Insulin pen 40 Units. Every evening levothyroxine (Synthroid) 50 mcg Tablet Take 50 mcg by mouth daily. metFORMIN (Glucophage) 500 mg Tablet Take 1,000 mg by mouth 2 times daily. rosuvastatin (Crestor) 5 mg Tablet Take 2.5 mg by mouth daily. clobetasoL (TEMOVATE) 0.05 % Solution Apply topically to the scalp once daily for 2 weeks then takea week off and then repeat as needed ketoconazole (NIZORAL) 2 % Cream Apply topically to areas under the breast and in the groin once daily for 3 weeks. Then use a few times weekly for maintenance. calcipotriene (Dovonex) 0.005 % Cream Apply to lesions on body twice a day M-F clobetasoL (TEMOVATE) 0.05 % Ointment Apply topically twice a day on weekends, avoid face. triamcinolone (KENALOG) 0.1 % Cream as needed. clotrimazole (LOTRIMIN) 1 % Cream Apply topically. documented in this encounter Progress Notes * Michelle Jaquez APRN - 08/08/2021 9:00 AM EST [facility] [place] Patient provided verbal consent prior to initiation of this telemedicine encounter and expressed understanding that the telemedicine visit may be billedsimilar to a clinic visit, pt was seen while in [place] I spent a total of 75 minutes in discussion / counseling related to obesity, nutrition, bariatric surgery, medications, physical activity and obesity related co-morbidities as well as reviewing notesand labs, ordering medications, labs, charting and coordinating care. Patient Name: Melinda Goncalves Date of : 1960 Age: 61 y.o. Referring provider: Marjorie Holman Dear Carolynn Wisdom APRN, Thank you for referring Melinda Goncalves to the [facility] for a consultation forobesity management. I reviewed past records including notes, labs, and other evaluations as reviewed below. I have briefly summarized the visit below. I look forward to collaborating with you, and tothat end, I will make medication adjustments as appropriate based on the patient's ongoing state ofhealth. Medications that I often manage include, but are not limited to, anti- obesity meds, diabetic medications and anti-hypertensives, and any adjustments I make will be communicated to you to maintain seamless care. Thank you again for allowing the [facility] to join Melinda's healthcare team. SUMMARY OF VISIT: Melinda Goncalves presented to the [facility] for a consultative visit regarding obesity management. The patient has WHO Class 2 / EOSS Stage 2 Obesity defined by a BMI of Body mass index is 38.97 kg/m??. andcomorbidities: Hyperlipidemia, Insulin resistance, Metabolic syndrome, Thyroid dz and Type 2 DM, etal as below. I spent a total of 75 minutes with the patient in face to face discussion/counseling regarding the diagnosis of obesity, interventions for treatment, and obesity related co-morbidities as well as charting, updating EMR, reviewing notes and labs, ordering medications and labs and coordinating care. OBESITY We discussed and agreed upon the pillars of obesity treatment and goal setting based upon SMART goals. Discussed that 5-10% weight loss can improve patient's co-morbidities; Goal weight loss 22 pounds over 3-6 months Pharmocotherapy: Discussion of antiobesity medications started, will send information on medication, discussed GLP1,likely a good option given her diabetes. If possible, medications that promote weight gain should be avoided and medications that are weight-neutral or promote weight loss should be considered. Obesogenic medications: insulin Lifestyle changes reviewed and planned: Discussion : Pillars/SMART goals Nutrition: whole food/quality diet/more plant based, lower carb diet, refer to RD for planning/education, decrease eating window. Avoid snacking, avoid drinking sugar, read labels Activity: Add regular walking,/movement, more time outside with horses Behavioral changes: mindful eating, meal planning Accountability: consider food log, regular weights Sleep: evaluation for sleep apnea at [facility], consistent bed times Stress: consider counseling regularly Referrals: [x]Nutrition [x]Health assistant tennis coach []Sleep medicine []Bariatric surgery []GI []Behavioral health []ACT group [] HLP []Research coordinator CHIEF COMPLAINT: Management of excess weight She has had failure to sustain weight loss by medical management, is aware of non-surgical methods at weight loss, and meets the criteria proposed by the NIH Consensus Guidelines for surgical treatment of severe obesity. ?? Patient has decided on pursuing bariatric surgery ?? Melinda was advised that weight loss from bariatric surgery depends on ability to eat a healthy diet watermelon inspector after surgery. She is aware of our programmatic multi-disciplinary approach which includes two bariatric surgeons, as well as dietitians and obesity medicine specialist. She was advised that the final decision for procedure is made by the surgeon with input from the patient and team. Prospective patients are encouraged to thoroughly research bariatric surgery with [facility] website. Bariatric Surgery Program Requirements and further recommendations: [x] Attended bariatric information session 07/07/21 [x] Bariatric Pathway initiated [] Dr. Smith [] Dr. Green [] Bypass [] Gastric sleeve [] UGI [] EGD [] Labs ordered [x] Labs reviewed -May No results for input(s): HA1C in the last 7068 hours. [] A1C <8 [] A1c>8 [] Gallbladder removed [] gallbladder intact [] Cardiac Clearance needed [] Cardiac clearance reviewed- surgeon to determine if needed. [] Sleep study as concern for HEATHER based on [place] Questionnaire. is working with [facility] [] Psych consult -referral placed [x] RD Stage 2 Education scheduled [] RD note reviewed [] Starting weight tbd (BSP) today: 220 [x] Given the association of obesity with cancer, all age appropriate cancer screenings should be UTD Patients are advised to stop HRT and OCP/ DMPA 1 month prior to surgery and hold for 1 month post op, and use control during this time if appropriate HISTORY OF PRESENT ILLNESS: Weight History: [facility] Weight History 08/08/2021 What is the most you have ever weighed? 253 How old were you then? 46 How many times have you lost 10 pounds or more because you were trying to lose weight? Was it... 3 to 5 How did you try to lose weight? Ate less food, Exercised Melinda Goncalves is here today because: she is pursuing bariatric surgery Gained 15 lbs in the past couple of years Weight hx: Duration: always Awareness: has a good understanding of impact of weight on health, her daughter had bariatric surgery and did well, previously the surgery had scared her because she knew some people who had bad outcomes. However, her daughter did really well so she decided it may be a good option for her. Impact on life: doesn't feel good, tired, self conscious Peak weight: 250 Initial weight 08/08/21: 220 lbs Goal weight: 150 lbs 10% loss: 22lb Other goals: wants to feel better, not feel so tired and depressed, wants to stop craving sugar, comfort foods Wants to learn new ways to manage her emotions that don't involve food Wants to get off medications Prior treatment/attempts to lose: Successful attempts in the past: has lost weight in the past with healthy eating, smaller portions and being more active but always regained AOM HX: no Hx metabolic surgery: pursuing now Melinda Goncalves has had gradual weight gain due to: isolation, sugar addiction, loves to cook, loves food, sedentary lifestyle Why is now the time to try again? Kids are grown now and she feels she can do more now Barriers to success: Sugar addiction/cravings, food choices Diabetes: on insulin and metformin, blood sugars are 80-100 fasting most mornings - reviewed GLP1 agonists as good option [facility] Importance 08/08/2021 How important is it to you to make a change to improve your health? 9 How confident are you that you can make a change to improve your health? 8 Obesity related co-morbidities: Past Medical History 08/08/2021 Have you had any of the following medical problems? Diabetes, Thyroid disease Sleep: Sleeps well Circadian: []awake overnight counselor work []irregular sleep timings [x]Normal day/night schedule To bed: tends to fall asleep on the couch at night, working on not doing that Wake up: Frequency of awakenings at night:sometimes due to stress Dx/Treated for HEATHER? No- did meet with sleep medicine visit at [facility], planning a home study []S [x]T []O []P [x]B [x]A []N []G: [place] Sleep Apnea 08/08/2021 Please choose the correct response to each of the following questions. Do you snore? Don't know Has anyone noticed that you quit breathing during your sleep? Never or nearly never How often do you feel tired or fatigued after your sleep? 1-2 times a week During your waking time, do you feel tired, fatigued or not up to par? 1-2 times a week Have you ever nodded off or fallen asleep while driving a vehicle? No Do you have high blood pressure? No [place] Category I 0 (Negative) [place] Category I Result 0 (Negative) [place] Category 2 0 (Negative) [place] Category II Result 0 (Negative) [place] Category 3 0 (Negative) [place] Sleep Apnea Result 0 (Low Risk) Food Behaviors In your opinion do you eat a healthy diet? Not really-sugar addiction Tends to choose sweets, high carb foods Uses food as a reward Tends to eat dinner early (around 430p) Gets up in the morning and has 2 cups coffee (with half and half), south african muffin, muffin, carbs In the past has had smoothie with lots of fruit 11-1p has lunch: yogurt, half a sandwich (PB and J, deli meat) Evening meal: croatian soup with south african muffin, steak fries, baked potato with sour cream and butter, chicken or burger Craves carbs Snack: ice cream Fluids: seltzer, coffee with half and half, water- will work on increasing Wine 2-3 times a week Appetite: not really but tends to crave more than be hungry Satiety: gets full but not satisfied, craves sweets (jelly beans) all day Eating out of: []Hunger [x]Habit []It's time. [x]Boredom [x]Emotions Eating patterns: [x] Mindless eating [] binge eating [x] Grazing [] skips meals [] Night eating Movement: [facility]: PAVS 08/08/2021 How many days during the past week have you performed physical activity where your heart beats faster and your breathing is harder than normal for 30 minutes or more? 3 How many days in a typical week do you perform an activity such as this? 3 Is ambulation limited most or all of the time? no Tolerance: she can climb a flight of stairs Purposeful exercise now? Resistance training: [ ] times per week x [ ]minutes CV exercise: [ ] times per week x [ ] minutes Activity enjoyed in past? NEAT? Working on it, taking the stairs more Working on doing more stretches Stress Management: tends to stress eat, considering therapy. Life overall is good Self monitoring: [] Daily or weekly weights [] Food log/cindy [] Other [x] None currently REVIEW OF SYSTEMS: 10 systems reviewed, positives as below Review of Systems Review of Systems 08/08/2021 Have you recently experienced any of the following symptoms? Fatigue, Hair loss, Diarrhea, Muscle pain, Depression [facility] PHQ-2 08/08/2021 Over the LAST 2 WEEKS, how often have you been bothered by little interest or pleasure in doing things? More than half the days Over the LAST 2 WEEKS, how often have you been bothered by feeling down, depressed, or hopeless? More than half the days PHQ-2 Score 4 (Full PHQ-9 indicated) CGAD2 08/08/2021 Over the LAST 2 WEEKS, how often have you been bothered by feeling nervous, anxious or on edge? Several days Over the LAST 2 WEEKS, how often have you been bothered by not being able to stop or control worrying? More than half the days GAD2 Subscore 3 (Full MARIMAR-7 indicated) Over the LAST 2 WEEKS, how often have you been bothered by worrying too much about different things? Nearly every day Over the LAST 2 WEEKS, how often have you been bothered by trouble relaxing? Several days Over the LAST 2 WEEKS, how often have you been bothered by being so restless that it is hard to sitstill? Not at all Over the LAST 2 WEEKS, how often have you been bothered by becoming easily annoyed or irritable? Nearly every day Over the LAST 2 WEEKS, how often have you been bothered by feeling afraid as if something awful might happen? Several days How difficult have these problems made it for you to do your work, take care of things at home, or get along with other people? Somewhat difficult GAD7 Total Scores 11 (Moderate Anxiety) MEDICAL HISTORY Medical and Surgical History: Reviewed. No past medical history on file. Family History: Reviewed. Family History 08/08/2021 Do any of these medical conditions run in your family? Obesity, Receiving bariatric surgery, Type 2diabetes Family History Negative family history of: Breast Cancer Social History: Reviewed. 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 Feels somewhat isolated Keeps in touch with her parents in their 80s Has 2 kids and grandkids WWC: Alcohol 08/08/2021 How often do you have a drink containing alcohol? Two to four times a month How many standard drinks containing alcohol do you have on a typical day? 1 or 2 drinks How often do you have six or more drinks on one occasion? Never VITAL SIGNS: Vitals: 08/08/21 0900 Weight: 99.8 kg (220 lb) Height: 160 cm (5' 3) Last 5 weight values: Wt Readings from Last 5 Encounters: 08/08/21 99.8 kg (220 lb) PHYSICAL EXAM: Gen: 61 y.o. year old female with obesity who appears stated age. NAD. Appearance: appropriate, well-kempt Psych: pleasant, conversant and engaged, normal affect, cognition and mood. PREVIOUS LABS AND IMAGING: Reviewed Last CBC Lab Results Component Value Date WBC 5.3 06/19/2021 RBC 4.51 06/19/2021 HGB 13.1 06/19/2021 HCT 40.3 06/19/2021 MCV 89.4 06/19/2021 MCH 29.0 06/19/2021 MCHC 32.5 06/19/2021 PLATELET 227 06/19/2021 RDWCV 13.2 06/19/2021 Last CMP Lab Results Component Value Date NA 139 06/19/2021 K 4.0 06/19/2021 CL 102 06/19/2021 CO2 26 06/19/2021 BUN 10 06/19/2021 CREATININE 0.82 06/19/2021 GLUCOSE 187 06/19/2021 CALCIUM 9.7 06/19/2021 ESTGFR 78 06/19/2021 Lab Results Component Value Date ALT 21 06/19/2021 AST 20 06/19/2021 ALKPHOS 64 06/19/2021 BILITOT 0.4 06/19/2021 ALBUMIN 4.3 06/19/2021 PROT 7.0 06/19/2021 Lipid Panel Last 3 Hemoglobin A1Cs No results found for: HA1C Latest TSH No results found for: TSH No results found for: LABINSU No results found for: GLUCFASTING No results found for: FERRITIN No results found for: [id number] No results found for: 25OHVITD ASSESSMENT AND PLAN Melinda Goncalves is a 61 y.o. female with uncontrolled obesity who presented to [facility] today for medical evaluation. Diagnoses and all orders for this visit: Class 2 severe obesity due to excess calories with serious comorbidity and body mass index (BMI) of38.0 to 38.9 in adult - Amb Referral to [facility] Psych Evaluation Type 2 diabetes mellitus without complication, without long-term current use of insulin Encounter for pre-bariatric surgery counseling and education Goals Addressed This Visit's Progress ??? meal timing/food choices/ bariatric behaviors Work [...] ?? Continue to work with sleep at [facility] ?? Goal 7 hours of sleep nightly. ?? Recommend consistent sleep and wake times, avoid electronics within one hour of sleep time ??? stress management ?? 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 [facility] Initial Responses 08/08/2021 URICA - Readiness Score 8 (Pre-contemplation State) WEL-SF Total Scores 50 PHQ-2 SubScore 4 (Full PHQ-9 indicated) GAD2 Subscore 3 (Full MARIMAR-7 indicated) MARIMAR 7 Total Scores 11 (Moderate Anxiety) PROMIS 10 Physical Scores 44.9 PROMIS 10 Mental Scores 36.3 Total REAP-S Scores 29 TFEQ - Uncontrolled Eating (UE) 48.15 TFEQ-Cognitive Restraint (CR) 44.44 TFEQ-Emotional Eating 72.22 Food Insecurity Score 2 [place] Category I Result 0 (Negative) [place] Category II Result 0 (Negative) [place] Category III 0 (Negative) [place] Sleep Apnea Total 0 (Low Risk) Schooling Graduated from college Importance of making a change 9 Confidence to make change 8 Most weighed 253 Age most weighed 46 Times lost 10 lbs or more 3 to 5 Lost weight how? Ate less food, Exercised Worried food would run out before we got money to buy more Never true Food didnt last; no money to get more Never true URICA: <8 Precontemp, 8-12 Contemp, 12+ Prep TFEQ: Look at transformed scores, average is 50, +/-2SD is sigfnif, consider referral >70 WEL-SF: Range 0-80, higher = better PROMIS Avg score = 50 REAP score 13-39, higher = more diversity in diet, better documented in this encounter Plan of Treatment Upcoming Encounters Date Type Department Care Team (Late st Contact Info) Description 02/01/2025 2:15 PM EDT Office Visit Dermatology at [facility] [address] [place] [address] Regina Rivas MD [facility] [place] [address] Scheduled Referrals Name Type Priority Associated Diagnoses Orde r Schedule Amb Referral to [facility] Psych Evaluation Outpatient Referral Routine Class 2 severe obesity due to excess calories with serious comorbidity and body mass index (BMI) of 38.0 to 38.9 in adult Ordered: 08/08/2021 documented as of this encounter Goals Goal [...] Note: Continue to work with sleep at [facility] Goal 7 hours of sleep nightly. Recommend consistent sleep and wake times, avoid electronics within one hour of sleep time movement Lifestyle No Leonid, Michelle L, SENIOR [employer]BI[employer] ARCHITECT Note: Exercise goal is 150 -300 min a week, prioritize self so you have time to exercise Recommend resistance training 3 times a week -can use therabands documented as of this encounter Visit Diagnoses Diagnosis Class 2 severe obesity due to excess calories with serious comorbidity and body mass index (BMI) of 38.0 to 38.9 in adult Type 2 diabetes mellitus without complication, without long-term current use of insulin Encounter for pre-bariatric surgery counseling and education documented in this encounter Care Teams A Auxiliary Relationship Specialty Start Date End Date Carolynn Wisdom APRN [address] [place] [address] PCP - General Family Medicine 03/08/20 documented as of this encounter
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
--- OUTSIDE RECORDS SUMMARY | 2024-01-17 18:06 | XMS_ITS | Encounter Summary ---
Author Organization [facility] [place] [address] Care Team Providers Care Resident Services Director Name Role Phone Carolynn Wisdom STRAIGHT KNIFE MACHINE CUTTER Primary Care Provider Reason for Visit * Reason Comments Medication Refill Medication Management Encounter Details Date Type Department Care Team (Late Contact Info) Description 06/08/2021 Specialty [place] [address] Vicente Pond, [facility] Social History Tobacco Use Types Packs/Day Years Used Date Smoking Tobacco: Former Smokeless Tobacco: Never Sex and Gender Information Value Date Recorded Sex Assigned at Not on file Gender Identity Not on file Sexual Orientation Not on file documented as of this encounter Progress Notes * Vicente Pond [facility] - 06/08/2021 11:07 AM EST Specialty Pharmacy Consultation; Vicente Pond [facility] Comprehensive Medication Management (CMM) Melinda Goncalves Diagnosis: Psoriasis Therapy Start Date: 11/23/2020 Contact in person or via telephone:Telephone Ms. Melinda Goncalves is a 61 y.o. (1960) female who was contacted in regard to specialty medication. Spoke with patient regarding HUMIRA. A review of the medication therapy was performed. The medication was Refilled as scheduled, and all medication related questions and concerns were addressed.The specialty pharmacy staff will follow up with the patient 5-7 days prior to next refill. Is the patient willing to proceed with the Clinical Assessment? Yes Summary and Recommendations: Ms. Melinda Goncalves is a 61 y.o. female who was contacted for a refill and review of Humira for thetreatment of psoriasis. Medications, allergies, and medical conditions were reviewed and reconciled. Proper injection technique was reviewed including rotation of injection sites, storage, room temperature administration and safe disposal of the injection device. The patient was reminded to contactthe clinic for dose hold recommendations in the event of suspected or known infection, antibiotic therapy, or scheduled surgery. Melinda Goncalves reports no missed doses since her last refill. A summary of Specialty Pharmacy's services was provided. Melinda states she is doing well on Humira but is experiencing quite a bit of stinging at the injection site. She reports that the area is itchy the day after her injection and says a hard lump forms at the site. This resolves after a couple of days. Aside from that, the Humira is working well to improve her skin in all affected areas except for her scalp, which she says is unchanged. She has beenusing clobetasol solution on her scalp and is in need of a refill at this time, which we will request from her provider. The patient is interested in trying the citrate-free pens to see if this alleviates some of the injection site reactions she is experiencing. We will reach out to clinic to see if this change is appropriate. Clinic follow-up needed: yes - patient is interested in trying citrate free pens Allergies and Drug intolerance: No Known Allergies Problem List: There is no problem list on file for this patient. Special Dietary or Hydration Requirements: no Medication Reconciliation Discrepancies (compared to [facility] med list) yes - outside medications were added to her medication list Medication List: Current Outpatient Medications Medication Sig Dispense Refill ??? Lantus Solostar U-100 Insulin pen ??? levothyroxine (Synthroid) 50 mcg Tablet Take 50 mcg by mouth daily. ??? metFORMIN (Glucophage) 500 mg Tablet Take 1,000 mg by mouth 2 times daily. ??? rosuvastatin (Crestor) 5 mg Tablet Take 2.5 mg by mouth daily. ??? ketoconazole (NIZORAL) 2 % Cream Apply topically to areas under the breast and in the groin once daily for 3 weeks. Then use a few times weekly for maintenance. 60 g 3 ??? clobetasoL (TEMOVATE) 0.05 % Solution Apply topically to the scalp once daily for 2 weeks then take a week off and then repeat as needed 50 mL 0 ??? clobetasoL (TEMOVATE) 0.05 % Ointment Apply topically twice a day on weekends, avoid face. 60 g0 ??? Humira Pen 40 mg/0.8 mL Pen Injector Kit Inject 0.8 mLs subcutaneously every 14 days. 1 kit 5 ??? tacrolimus (Protopic) 0.1 % Ointment Apply topically BID on weekends or as needed for flares (Patient not taking: Reported on 06/08/2021) 100 g 3 ??? calcipotriene (Dovonex) 0.005 % Cream Apply to lesions on body twice a day M-F (Patient not taking: Reported on 06/08/2021) 120 g 0 ??? Adalimumab (Humira Pen Bzey-Dygilu-Rvga HS) 40 mg/0.8 mL Pen Injector Kit Inject 80mg subcutaneously on day 1 followed by 40mg on day 8 and 40mg every 14 days thereafter. (Patient not taking: Reported on 06/08/2021) 1 kit 0 ??? triamcinolone (KENALOG) 0.1 % Cream [...] values: Lab Results Component Value Date NA 140 11/16/2020 K 4.1 11/16/2020 CL 104 11/16/2020 CO2 25 11/16/2020 BUN 14 11/16/2020 CREATININE 0.77 11/16/2020 GLUCOSE 165 11/16/2020 CALCIUM 9.4 11/16/2020 Lab Results Component Value Date ALT 15 11/16/2020 AST 17 11/16/2020 ALKPHOS 70 11/16/2020 BILITOT 0.5 11/16/2020 ALBUMIN 4.1 11/16/2020 PROT 7.1 11/16/2020 Lab Results Component Value Date WBC 8.6 11/16/2020 HGB 13.2 11/16/2020 HCT 39.7 11/16/2020 MCV 87.4 11/16/2020 PLATELET 277 11/16/2020 No results found for: HA1C There is no immunization history on file for this patient. Assessment and Recommendations: Patient Counseling Patient informed of specialty services: Yes Patient accepted offer to corporate travel counselor: select all, adherence/missed doses, cost of medications/cost implications, doses and administration, possible drug/OTC drug and food interactions, possible adverse side effects and management, pharmacy contact information, lab monitoring/follow up, possible drug/Rx drug interactions, safe handling, storage, and disposal, therapeutic rationale Medication Management Summary Topics discussed: reviewed medication changes since last visit, medication safety precautions education provided, drug interaction education provided to patient, safe handling, storage, and disposal discussed, possible adverse effects and management discussed, lab monitoring and follow-up discussed, cost of medications and cost implications discussed, adherence and missed doses discussed, health goals discussed, monitoring medication discussed, over the counter products discussed, preventative care discussed, recommendations to doctor discussed, reminder to refill or pickle solution maker medication discussed, self-monitoring discussed, timing of medications discussed, vaccination discussed, lifestyle modification education, referral needs discussed Time spent: 1-15 min Treatment Outcomes No data found in the last 10 encounters. Reviewed in detail with patient: Dose appropriateness [...] adverse reactions occur: Yes Additional care/services needed: Yes If yes, explain: clobetasol solution refill to [facility] Additional equipment/supplies required: No Patient satisfied with care/services provided: Yes Specialty Assessment: Physical and Cognitive Assessment: Functional limitations identified: No Cognitive limitations identified: No Concern regarding orientation/memory: No Concern with reasoning/judgement: No Is patient a fall risk: No Social Assessment: Does patient have a primary childcare administrator: No Does patient have an emergency contact on file: Yes Does patient need referral to social secretary: No Does patient need referral to advocacy [...] Yes Actual Copay: $: 5 Days Supply: 28 Welcome Packet and Rights and Responsibilities: Patient provided welcome packet/rights and responsibilities: Yes Date Confirmed: 11/23/20 Confirmation: Signature in [employer] Specialty Med Adherence Patient Demonstrates Understanding of Importance of Adherence: Yes Educational Information or Adherence Tools Provided: Yes Patient Reported X Missed Doses in the Last Month: 0 Provider-Estimated Medication Adherence Level: 90-100% Adherence Tools Used: directed education Pre-Consult Questions 1) How comfortable are you with self-injecting medication?Somewhat comfortable - Please explain if applicable: patient does not like the injection but says she tolerates it 2) Overall, what is your confidence level with administering this medication? 10 3) How confident do you feel about preventing or managing injection site reactions? Somewhat confident - Please explain if applicable: Reviewed proper injection technique with patient but she is experiencing stinging, itching and hardening of skin at injection site. 4) How satisfied are you with your therapy? Somewhat satisfied - Please explain if applicable: scalp is unchanged but all other areas are improving Post-Consult Interventions 1) Which interventions did you make as a result of this encounter? Consulted the prescriber 2) Overall, what is your confidence level with administering this medication? 10 Therapy Assessment: Current Medication Dosing/Route/Frequency: Humira 40mg/0.8mL PNKT Inject the contents of one pen (40 mg) subcutaneously every 14 days Appropriate Therapy: Yes Effective: Yes Current Affected Areas: scalp, groin, thighs, under breasts Improving Affected Areas: all areas aside from scalp Worsening Affected Areas: n/a Total BSA involved: unknown Recent Skin Exacerbations/Flaring: yes - scalp Recent Topical Corticosteroid Use: yes - clobetasol solution on scalp; clobetasol ointment on groin, thighs, and under breasts Relapsing/Remitting Factors: no Patient-Reported Side Effects: yes - injection site reactions Recent Infections: no Counseling: Utilizing appropriate injection technique: yes - reviewed with patient Rotation of Injection Sites: Yes Room Temperature Medication at Time of Injection: Yes Patient Goals: Patient's specific desired goal: 50% Improvement of scalp psoriasis and BSA Measured by: BSA, patient reported symptoms Time-frame to meet goal: 6 months Is the patient on track to achieve goals of therapy? Yes If no, what are the barriers and action plan to reach the goal: n/a Care Plan and Interventions: Care Plan Reviewed and Approved by both Pharmacist and Patient: Yes Did Care Plan Change? No If yes: Change to plans of care based on: Patient's request: n/a Condition: n/a Response to therapy: n/a Provider request: n/a Follow-up needed: No Interventions (if applicable): yes - contacted clinic to discuss possible switch to Humira 40mg/0.4mL PNKT citrate-free Patient experienced change in condition that affects treatment: no Patient Satisfied with Therapy: yes - has seen improvements and plans to continue Pharmacist follow-up needed: Yes Patient understands no changes to current drug regimen were made at the appointment and [facility] (summary located at top of note) for provider review and follow up. Vicente Pond RPH 06/08/21 11:16 AM documented in this encounter Plan of Treatment Upcoming Encounters Date Type Department Care Team (Late st Contact Info) Description 02/01/2025 2:15 PM EDT Office Visit Dermatology at [facility] [address] [place] [address] Regina Rivas MD [facility] [place] [address] documented as of this encounter Visit Diagnoses Not on filedocumented in this encounter Care Teams Resident Services Director Relationship Specialty Start Date End Date Artis CANDE Pradhan [address] [place] [address] [address] [place] [address] PCP - General Family Medicine 03/08/20 documented as of this encounter
--- OUTSIDE RECORDS SUMMARY | 2024-01-17 18:06 | XMS_ITS | Encounter Summary ---
Author Organization [facility] [place] [address] Care Team Providers Care Mulcher Operator Name Role Phone Carolynn Wisdom CUPOLA PATCHER Primary Care Provider Reason for Visit * Reason Comments Medication Management Specialty Refill Management Encounter Details Date Type Department Care Team (Late st Contact Info) Description 10/17/2021 Specialty [place] [address] Oscar Mariano, [facility] Social History Tobacco Use Types Packs/Day Years Used Date Smoking Tobacco: Former Smokeless Tobacco: Never Sex and Gender Information Value Date Recorded Sex Assigned at Not on file Gender Identity Not on file Sexual Orientation Not on file documented as of this encounter Progress Notes * Oscar Mariano [facility] - 10/17/2021 2:24 PM EDT Clinical Management Plan: Refill Specialty Pharmacy Consultation; Oscar Mariano [facility] Comprehensive Medication Management (CMM) Melinda Goncalves is a 61 y.o. (1960) [...] Known Allergies Medication Reconciliation Discrepancies (compared to [facility] med list) No Specialty Pharmacy Refill Questionnaire Refill Questionnaire 10/17/2021 What is the name of the specialty medication you are refilling? stelara Are you taking any new medications? No Any new medical condition? No Any new allergies? No Any new side effects that are bothersome? No Please explain - What date will you need this fill by? 10/24/2021 Adherence: Any missed doses? No Patient understands no changes to current drug regimen were made. sOcar Mariano RPH 10/17/21 2:25 PM documented in this encounter Plan of Treatment Upcoming Encounters Date Type Department Care Team (Late st Contact Info) Description 02/01/2025 2:15 PM EDT Office Visit Dermatology at [facility] [address] [place] [address] Regina Rivas MD [facility] [place] [address] documented as of this encounter Goals Goal [...] on filedocumented in this encounter Care Teams Mulcher Operator Relationship Specialty Start Date End Date Carolynn Wisdom APRN [address] [place] [address] PCP - General Family Medicine 03/08/20 documented as of this encounter
--- OUTSIDE RECORDS SUMMARY | 2024-01-17 18:06 | XMS_ITS | Encounter Summary ---
Author Organization [facility] Address [facility] [place] [address] Care Team Providers Care Internal Review And Audit Compliance Name Role Phone Carolynn Wisdom APRN Primary Care Provider Encounter Details Date Type Department Care Team (Late st Contact Info) Description 11/21/2020 Specialty [place] [address] Oscar Mariano, [facility] Social History Tobacco Use Types Packs/Day [...] 2:15 PM EDT Office Visit Dermatology at [facility] [address] [place] [address] Regina Rivas MD [facility] [address] [place] [address] documented as of this encounter Visit Diagnoses Not on filedocumented in this encounter Care Teams Internal Review And Audit Compliance Relationship Specialty Start Date End Date Carolynn Wisdom APRN [address] [place] [address] PCP - General Family Medicine 03/08/20 documented as of this encounter
--- OUTSIDE RECORDS SUMMARY | 2024-01-17 18:06 | XMS_ITS | Encounter Summary ---
Author Organization [facility] [place] [address] Care Team Providers Care Cloth Seconds Sorter Name Role Phone Carolynn Wisdom DATA WAREHOUSE ARCHITECT Primary Care Provider Encounter Details Date Type Department Care Team (Latest Contact Info) Description 08/23/2021 4:30 PM EST TH Visit (TeleHealth) Weight and Wellness at [address] [address] Vicente Huynh Class 2 severe obesity due to excess calories with serious comorbidity and body mass index (BMI) of 38.0 to 38.9 in adult Social History Tobacco Use Types Packs/Day Years Used Date Smoking Tobacco: Former Smokeless Tobacco: Never Sex and Gender Information Value Date Recorded Sex Assigned at Not on file Gender Identity Not on file Sexual Orientation Not on file documented as of this encounter Patient Instructions * Patient Instructions* Vicente Huynh - 08/31/2021 5:24 PM EST It was good to meet you Melinda. You have some good exercise habits going and plan to add in work with the resistance bands. I'll send you the yoga hand-out we have so you can find some classes on-line. I look forward to talking with you soon. Be well, Vicente Huynh Health Slate Handler documented in this encounter Progress Notes * Vicente Huynh - 08/23/2021 4:30 PM EST Melinda Areli Goncalves is here today at the request of Michelle Jaquez for lifestyle coaching for weight control and overall health. FIRST VISIT 1. Clarify BIG WHY: health, less pain due to extra weight, get off medications 2. Assess Strengths: enjoy exercising and cooking 3. Review Healthy habits guidelines for exercise, sleep, and stress- see below 4. Teach SMART goals and practice setting one(connect to BIG WHY, pillars). 5. Remind Patient to review info in Welcome Packet: 6. Review Pathways (note any questions): Review specific goals if any from provider Goals ??? meal timing/food choices/ bariatric behaviors [...] ?? Continue to work with sleep at [facility] ?? Goal 7 hours of sleep nightly. ?? Recommend consistent sleep and wake times, avoid electronics within one hour of sleep time ??? stress management ?? Mindfulness/deep breathing practice to reduce cortisol -try for at least 10 minutes a day Exercise Ride horse 3 times a week, yoga Sleep Not discussed at this time Stress Practice yoga Self-monitoring What are you doing now? If no personal accountability process, what can you add? [x]Food log: [] daily [x] intermittent []Weigh-ins: [] daily [] weekly [x]Exercise log [x]Gratitude journal []Other: Food Behaviors (optional): Working on food choices and bariatric behaviors Future follow-up with health cross country coach will address identified areas of concern: [x] Exercise [x]Sleep []Stress [x]Accountability []Food Behaviors [x]Self-compassion Below are guidelines for optimal health that will help you, OVER TIME, to achieve. We do not expectyou to adopt everything all at once or make huge leaps. We don't even expect that you will achieve them all because nobody is perfect! Nutrition: Whole food, quality diet, more plants. (See the back page of your Welcome Book). This shayla general recommendation for all patients. Your dietitian and provider will help make more specificrecommendations for you if appropriate. Avoid drinking your calories in the form of fruit juice, soda pop or other sweetened beverages. Choose water. Activity: to maintain weight loss evidence supports 360-420 minutes per week (60min daily). Each week, 1 hour of this time should be divided into 2 or 3 sessions of resistance (weight) training. The rest would be cardio. We do not know the threshold for non-structured activity, but if you are taking about 10,000 steps daily, you may be meeting this goal for cardiac activity. You can build your activity level slowly and methodically. Your Weight&Wellness team will help you develop a plan that works for you. Sleep: 7-8 hours of restful sleep per night with minimal or no interruptions. If this is not happening, talk to your provider about how we can help. Self-monitoring: most people benefit from some form of accountability. This can be: food tracking- either in an cindy or on paper, monitoring weight daily or monthly, exercise tracking. Pick something to track. Stress management: managing stress comes in many different forms from meditation to exercise to simply increasing mindfulness throughout the day. Your health cross country coach is well-equipped to guide you to find something to look forward to everyday. Eating behaviors: many people benefit from restricting the hours in which they eat. You can choose an eating window of 8-12 hours to start. Make a pact with yourself that you will not take in anything with caloric content outside this window. Your personnel officer may make further recommendations documented in this encounter Plan of Treatment Upcoming Encounters Date Type Department Care Team (Late st Contact Info) Description 02/01/2025 2:15 PM EDT Office Visit Dermatology at [facility] [address] [place] [address] Regina Rivas MD [facility] [place] [address] documented as of this encounter Goals Goal [...] Note: Continue to work with sleep at [facility] Goal 7 hours of [...] (BMI) of 38.0 to 38.9 in adult documented in this encounter Care Teams Cloth Seconds Sorter Relationship Specialty Start Date End Date Artis CANDE Pradhan [address] [place] [address] PCP - General Family Medicine 03/08/20 documented as of this encounter
--- OUTSIDE RECORDS SUMMARY | 2024-01-17 18:06 | XMS_ITS | Encounter Summary ---
Author Organization [facility] Address [facility] [place] [address] Care Team Providers Care Director Of Premium Seat Sales Name Role Phone Carolynn Wisdom APRN Primary Care Provider Reason for Visit * Reason Onset Date Comments Medication Refill 11/16/2020 Encounter Details Date Type Department Care Team (Late st Contact Info) Description 11/16/2020 Refill Dermatology at [facility] [address] [place] [phone] Lisa Vasquez MD [facility] [place] [address] Social History Tobacco Use Types Packs/Day Years [...] at [facility] [address] [place] [phone] Regina Rivas MD [facility] [place] [address] documented as of this encounter Visit Diagnoses Not on filedocumented in this encounter Care Teams Director Of Premium Seat Sales Relationship Specialty Start Date End Date Carolynn Wisdom APRN [address] [place] [address] PCP - General Family Medicine 03/08/20 documented as of this encounter
--- OUTSIDE RECORDS SUMMARY | 2024-01-17 18:06 | XMS_ITS | Encounter Summary ---
[place] [address] Care Team Providers Care Truck Guard Name Role Phone MelodieCarolynn judd CANDE Primary Care Provider Reason for Visit * Reason Onset Date Comments Appointment 11/15/2021 Encounter Details Date Type Department Care Team (Late st Contact Info) Description 11/15/2021 Telephone Weight and Wellness at [address] [address] Tanya Rush V Appointment Social History Tobacco Use Types Packs/Day Years Used Date Smoking Tobacco: Former Smokeless Tobacco: Never Sex and Gender Information Value Date Recorded Sex Assigned at Not on file Gender Identity Not on file Sexual Orientation Not on file documented as of this encounter Miscellaneous Notes * Telephone Encounter - Tanya Rush V - 12/01/2021 10:02 AM EDT Return for Bariatric, psychologist * Telephone Encounter - Tanya Rush V - 11/20/2021 9:30 AM EDT Left message to schedule or coordinated a weight check within 2 weeks of psych eval. * Telephone Encounter - Tanya Rush V - 11/15/2021 4:49 PM EDT LVM to schedule bsp pych eval. * Telephone Encounter - Tanya Rush V - 11/15/2021 4:48 PM EDT ----- Message from Yessy Jonas RD sent at 10/17/2021 9:07 AM EDT ----- Please schedule for [facility] Psych Eval documented in this encounter Plan of Treatment Upcoming Encounters Date Type Department Care Team (Late st Contact Info) Description 02/01/2025 2:15 PM EDT Office Visit Dermatology at [place] [address] [place] [address] Regina Rivas MD [facility] [place] [address] documented as of this encounter Goals Goal [...] Continue to work with sleep at [facility] Goal 7 hours of sleep [...] on filedocumented in this encounter Care Teams Truck Guard Relationship Specialty Start Date End Date Carolynn Wisdom APRN [address] [place] [address] PCP - General Family Medicine 03/08/20 documented as of this encounter
--- OUTSIDE RECORDS SUMMARY | 2024-01-17 18:06 | XMS_ITS | Encounter Summary ---
Author Organization [facility] [place] [address] Care Team Providers Care Sas Bi Developer Name Role Phone Carolynn Wisdom APRN Primary Care Provider Reason for Visit * Reason Comments Specialty Pharmacy Review Encounter Details Date Type Department Care Team (Late st Contact Info) Description 08/18/2021 Specialty [place] [address] Jean Slaughter, [facility] Social History Tobacco Use Types Packs/Day Years Used Date Smoking Tobacco: Former Smokeless Tobacco: Never Sex and Gender Information Value Date Recorded Sex Assigned at Not on file Gender Identity Not on file Sexual Orientation Not on file documented as of this encounter Progress Notes * Jean Slaughter - 08/18/2021 11:59 PM EST The [facility] has completed a benefits investigation for Melinda Goncalves to review their eligibility to fill at [facility]. Per patient's medication list they are prescribed STELARA 90 MG/ML and the medication is currently filled at the [facility]. documented in this encounter Plan of Treatment Upcoming Encounters Date Type Department Care Team (Late st Contact Info) Description 02/01/2025 2:15 PM EDT Office Visit Dermatology at [facility] [address] [place] [phone] Regina Rivas MD [facility] [address] [place] [address] documented as of this encounter Goals Goal [...] on filedocumented in this encounter Care Teams Sas Bi Developer Relationship Specialty Start Date End Date Carolynn Wisdom APRN [address] [place], [place] [address] [address] [place] [address] PCP - General Family Medicine 03/08/20 documented as of this encounter
--- OUTSIDE RECORDS SUMMARY | 2024-01-17 18:06 | XMS_ITS | Encounter Summary ---
Author Organization Formerly [facility], [facility]–1983 Address [facility] [place] [address] Care Team Providers Care Foot And Ankle Surgeon Name Role Phone MelodieCarolynn judd CANDE Primary Care Provider Encounter Details Date Type Department Care Team (Latest Contact Info) Description 11/16/2021 10:30 AM EDT TH Visit (TeleHealth) Weight and Wellness at [address] [address] Michelle Jaquez APRN [facility] [address] Class 2 severe obesity due to excess calories with serious comorbidity and body mass index (BMI) of 38.0 to 38.9 in adult; Type 2 diabetes mellitus without complication, with [...] - Inhaled Oxygen Concentration - - Weight 96.2 kg (212 lb) 11/16/2021 9:00 AM EDT Height 161.3 cm (5' 3.5) 11/16/2021 9:00 AM EDT Body Mass Index 36.96 11/16/2021 9:00 AM EDT documented in this encounter Progress Notes * Leonid Michelleedvin Singleton APRN - 11/16/2021 10:30 AM EDT [facility] Patient provided verbal consent prior to initiation of this telemedicine encounter and expressed understanding that the telemedicine visit may be billed similar to a clinic visit, pt was seen while in [facility] I spent a total of 32 minutes in discussion / counseling related to obesity, nutrition, bariatric surgery, medications, physical activity and obesity related co-morbidities as well as reviewing notesand labs, ordering medications, labs, charting and coordinating care. Patient Name: Melinda Goncalves Date of : 1960 Age: 61 y.o. Carolynn Wisdom APRN Thank you for referring Melinda Goncalves to the [facility]. I saw her for a follow-up visit today, 11/16/21. Please see changes to care as documented in the assessment and plan. CHIEF COMPLAINT: F/u for treatment of WHO Class 2 / EOSS Stage 2 Obesity defined by a BMI of Body mass index is 36.96 kg/m??. and comorbidities. This is a follow-up [facility] visit for this 61 y.o. patient. Weight gain due to: isolation, sugar addiction, loves to cook, loves food, sedentary lifestyle Barriers: sugar addiction, food choices Initial visit: 08/08/21 Initial weight: 220 Initial BMI: 38.97 Goal weight: 150 lb 10% loss: 22 lb Today's weight: 212 Change since prior: down 8 lbs Wt Readings from Last 3 Encounters: 11/16/21 96.2 kg (212 lb) 10/17/21 96.6 kg (213 lb) 09/05/21 99.7 kg (219 lb 12.8 oz) Bariatric Surgery Program Requirements and further recommendations: ?? [x]? Attended bariatric information session 07/07/21 Instructed to check in with bariatrics to be sure paperwork ?? [x]? Bariatric Pathway initiated ?? []? Dr. Smith []? Dr. Green []? Bypass []? Gastric sleeve []? UGI []? EGD ?? []? Labs ordered [x]? Labs reviewed -May No results for input(s): HA1C in the last 7068 hours. Last A1C 8.5 will have checked this Saturday []? A1C <8 [x]? A1c>8 , blood sugars have been running at times in the 70s and last night hada high of 260 []? Gallbladder removed []? gallbladder intact []? Cardiac Clearance needed []? Cardiac clearance reviewed- surgeon to determine if needed. []? Sleep study as concern for HEATHER based on [place] Questionnaire. is working with [facility] - planning home study []? Psych consult -referral placed - ready to schedule, has completed RD visits [x]? RD Stage 2 Education scheduled [x]? RD note reviewed []? Starting weight tbd (BSP) today: 212 ?[x]???Given the association of obesity with cancer, all age appropriate cancer screenings should be UTD? Patients are advised to stop HRT and OCP/ DMPA 1 month prior to surgery and hold for 1 month post op, and use control during this time if appropriate WWC Team: Yessy Jonas RD HPI TODAY PATIENT REPORTS: Nutrition: has been off track for the past couple of weeks, working really long days (12-14 hours) so hard to plan, though tries to make good choices, yogurt, trail mix, doing some protein shakes- avoids fruit - being more mindful of choices- trying to be more mindful, recommend stop for 2 minutes before starting eating each time to just breath Behavior: working on bariatric behaviors, struggles some due to busy schedule, working on being more mindful. Activity: more active, doing horseback riding, walking Sleep: pending sleep study, having some issues due to insurance issues. 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 She has good insight into this and is taking steps to manage. When she saw RD she has having a tough day. Self-monitoring: [] Daily or weekly weights [x] Food log/cindy [] Other AOM: Currently taking: tried ozempic, didn't tolerate, nausea but it did make her not want to eat and she liked that On metformin for diabetes Discussed menopause and bariatric surgery, no period since her early 50s, concerned about any changes due to estrogen, discussed unlikely and if she does have any bleeding return after surgery shouldbe evaluated. AOM HX: GLP1 inhibitor: and metformin Did not tolerate GLP1 Obesogenic meds: insulin COMORBIDITIES ADDRESSED Diabetes- will have A1C with pcp, last was 8.3, hopes to be under 8 Sleep- sleep study pending REVIEW OF LABS/DIAGNOSIS SINCE LAST VISIT Labs checked by pcp, will have bariatric labs closer to surgery REFERRALS Completed/result: RD Pending: bariatric psych evaluation [x] I reviewed past / interim records including notes and labs. Goals Addressed This Visit's Progress ??? meal timing/food choices/ bariatric behaviors On track Work on eating more mindfully Try tracking, [...] at each meal and eating episode ??? Nutrition - 11/07/21 On track Nutrition Goals: ??? Focus on meal planning - plan and prepare for meals; especially focus on lunch and plan ahead/prepare for dinner, bring snack to barn ??? Establish meal routine - 9/10am breakfast, 1pm lunch, 6/7pm dinner; Choose protein first at every eating event ??? Practice bariatric drinking behaviors - Separate eating and drinking by 30 minutes; increase water intake to 48-64 ounces per day; eliminate carbonation; Continued Nutrition Goals: ??? Track food intake - baritastic, bariatricpal, myfitnesspal ??? Establish exercise routine - continue walking weekly, goal aerobic exercise 150 minutes per week and/or 10,000 steps per day; continue walking dog daily; add resistance exercise to routine - exercise bands, yoga, etc. ??? sleep On track ?? Continue to work with sleep at [facility] ?? Goal 7 hours of sleep nightly. ?? Recommend consistent sleep and wake times, avoid electronics within one hour of sleep time ??? stress management Not on track ?? Mindfulness/deep breathing practice to reduce cortisol -try for at least 10 minutes a day Pathway: C PATHWAY - ADULT 08/08/2021 Pre- Bariatric Surgery Activate PATHWAY DISCUSSION Continue BSP REVIEW OF SYSTEMS: see above HPI for pertinent +/- findings VITAL SIGNS: No data found. Body mass index is 36.96 kg/m??. PHYSICAL EXAM: Gen: Alert and appropriate, NAD. LABS: Last CBC Lab Results Component Value Date [...] found for: FERRITIN No results found for: [id number] No results found for: 25OHVITD ASSESSMENT AND PLAN Melinda Areli Sacha was seen in follow up today for ongoing obesity, not yet at treatment goal [x] withimprovement [] without change. Goals and treatment options were discussed. Continue medical management and lifestyle changes. Discussion 11/16/21: pathways, Pillars, SMART goals, Insulin resistance, Addressing mindless eatingand Medication options with r/b Diagnoses and all orders for this visit: Class 2 severe obesity due to excess calories with serious comorbidity and body mass index (BMI) of38.0 to 38.9 in adult Type 2 diabetes mellitus without complication, with long-term current use of insulin Return for Bariatric, psychologist. 2 min chart review 25 min [id number] Visit time 5 min Documentation time I spent time as above caring for this patient today; ordering/reviewing labs and medications, documenting visit, examining the patient, coordinating care, updating EMR, counseling in diet and/or exercise and discussion of treatment options in the care of obesity. documented in this encounter Plan of Treatment Upcoming Encounters Date Type Department Care Team (Late st Contact Info) Description 02/01/2025 2:15 PM EDT Office Visit Dermatology at [address] [phone] Regina Rivas MD [facility] [address] [place] [address] documented as of this encounter Goals Goal [...] adult Type 2 diabetes mellitus without complication, with long-term current use of insulin documented in this encounter Care Teams Foot And Ankle Surgeon Relationship Specialty Start Date End Date Carolynn Wisdom APRN [address] [place] [address] [address] [place] [address] PCP - General Family Medicine 03/08/20 documented as of this encounter
--- OUTSIDE RECORDS SUMMARY | 2024-01-17 18:06 | XMS_ITS | Encounter Summary ---
Author Organization [facility] Address [facility] [place] [address] Care Team Providers Care Goat Driver Name Role Phone Carolynn Wisdom APRN Primary Care Provider [phone] Encounter Details Date Type Department Care Team (Latest Contact Info) Description 01/03/2022 2:30 PM EDT TH Visit (TeleHealth) Weight and Wellness at [address] [address] Iliana Peterson, PhD [facility] [place] [address] Eating disorder, unspecified type Social History Tobacco Use Types Packs/Day Years Used Date Smoking Tobacco: Former Smokeless Tobacco: Never Sex and Gender Information Value Date Recorded Sex Assigned at Not on file Gender Identity Not on file Sexual Orientation Not on file documented as of this encounter Progress Notes * Iliana Peterson, PhD - 01/03/2022 2:30 PM EDT [facility] FOLLOW UP [facility] AT [address] [address] Dept: [phone] 01/03/2022 2:04 PM Time spent with patient: 30 minutes Location: Telehealth. Melinda Goncalves gave permission for and was seen for today's appointment with a Telehealth visit. During this visit they were located at home in [place]. Melinda L Sleath is aware that for any urgent matter they can call [phone]. Attendees: Patient SESSION #: 3 After today's visit, patient will be re-evaluated for bariatric surgery by a different [facility]. CHIEF COMPLAINT Emotional eating GOALS FOR THERAPY ??? Improve patient's stress management skills to prevent emotional eating and other maladaptive coping - met 01/03/22, patient is practicing mindfulness and adaptive coping skills, reports less frequent and more manageable emotional eating S/O Since the previous session, Melinda Goncalves reported she is more mindful of her eating but still experiences mild emotional eating, particularly in the context of work stress. She reported she is stopping sooner now by being mindful, asking herself what she is doing and what she needs during stressful moments. ?? Patient made a goal at the lats visit to have easily accessible, healthy food options. She reported buying some Lean Cuisines but not enjoying them, sometimes goes to grocery/deli and getting prepared food options but portioning them out for multiple meals. ?? She denied any alcohol in evenings over past few weeks and reported eliminated all seltzer. ?? With regard to other strategies she is using to reduce tension in the evenings, she reported sitting in her screened porch, pouring glass of ice water, and relaxing. ?? She reported intentionally pausing when she starts to feel a craving, asks, what's the next best step? ?? We discussed self-monitoring: patient reported plans to do this for a couple weeks, as it's a bariatric checklist requirement. Discussed the rationale and patient agreed it would be helpful for her. Addressed barriers, including unhelpful thoughts (e.g, perfectionism) related to self-monitoring.Patient discussed ways she can approach logging her food intake that will reduce shame and guilt. ?? We discussed the term resilience as it relates to habit change (i.e., steps to take after a lapse or setback). ?? Reviewed plan - see below. A Diagnosis: Unspecified eating disorder Mental status: No SI. Mental status WNL. Fully engaged in therapy process. P Between sessions, Melinda will implement plan to keep easily prepared dinners at home (e.g., frozen protein bowl meals) to prevent comfort/convenience eating at night after work No follow-up with this senior technical writer at this time. Patient will be scheduled to complete bariatric evaluation with a different psychologist. Melinda Goncalves has my contact information and was encouraged to reach out to me in the future as needed. Iliana Peterson, Ph.D. documented in this encounter Plan of Treatment Upcoming Encounters Date Type Department Care Team (Late st Contact Info) Description 02/01/2025 2:15 PM EDT Office Visit Dermatology at [facility] [address] [place] [address] Regina Rivas MD [facility] [place] [address] documented as of this encounter Goals Goal [...] type documented in this encounter Care Teams Goat Driver Relationship Specialty Start Date End Date Carolynn Wisdom APRN [address] [place] [address] PCP - General Family Medicine 03/08/20 documented as of this encounter
--- OUTSIDE RECORDS SUMMARY | 2024-01-17 18:06 | XMS_ITS | Encounter Summary ---
Author Organization [facility] [place] [address] Care Team Providers Care Rn Transplant Name Role Phone MelodieCarolynn judd CANDE Primary Care Provider [phone] Encounter Details Date Type Department Care Team (Late st Contact Info) Description 11/15/2021 Telephone Weight and Wellness at [address] [phone] Kailyn Peng, SANITATION SUPERVISOR Social History Tobacco Use Types Packs/Day Years Used Date Smoking Tobacco: Former Smokeless Tobacco: Never Sex and Gender Information Value Date Recorded Sex Assigned at Not on file Gender Identity Not on file Sexual Orientation Not on file documented as of this encounter Miscellaneous Notes * Telephone Encounter - Kailyn Peng CMA - 11/15/2021 3:43 PM EDT [facility] Insurance Rater Pre-telemedicine Visit Phone Note Melinda Goncalves 1960 [] Patient was not reached Patient was reached and the following information was reviewed/obtained per protocol: [x] Confirmed patient name and date of [x] Confirmed ZOOM downloaded and functioning [] ZOOM appointment link sent if no MyDH [x] Phone number to be reached is: [phone] REVIEW: [x] Review of patient medications completed Have you started on any NEW medications? [x] No [] Yes: [x] Confirmed preferred pharmacy: [facility] Reminders Your provider might ask you what you ate the day prior to the visit Please weigh yourself before the appointment Pedi: Both parent and child need to be present for the visit documented in this encounter Plan of Treatment Upcoming Encounters Date Type Department Care Team (Late st Contact Info) Description 02/01/2025 2:15 PM EDT Office Visit Dermatology at [facility] [address] [phone] Regina Rivas MD [facility] [place] [address] documented as of this encounter Goals Goal [...] to work with sleep at [facility] Goal 7 hours of sleep nightly. Recommend [...] on filedocumented in this encounter Care Teams Rn Transplant Relationship Specialty Start Date End Date Carolynn Wisdom APRN [address] [place] [address] [address] [facility] [address] [place] [address] PCP - General Family Medicine 03/08/20 documented as of this encounter
--- OUTSIDE RECORDS SUMMARY | 2024-01-17 18:06 | XMS_ITS | Encounter Summary ---
Author Organization [facility] [place] [address] Care Team Providers Care Guest Relations Associate Name Role Phone Carolynn Wisdom APRN Primary Care Provider Reason for Visit * Reason Comments Medication Management Humira Medication Refill Humira Encounter Details Date Type Department Care Team (Late st Contact Info) Description 12/15/2020 Specialty [place] [address] Vicente Pond, [facility] Social History Tobacco Use Types Packs/Day Years Used Date Smoking Tobacco: Former Smokeless Tobacco: Never Sex and Gender Information Value Date Recorded Sex Assigned at Not on file Gender Identity Not on file Sexual Orientation Not on file documented as of this encounter Progress Notes * Vicente Pond [facility] - 12/15/2020 4:03 PM EDT Specialty Pharmacy Consultation; Vicente Pond [facility] Comprehensive Medication Management (CMM) Melinda Goncalves Diagnosis: Psoriasis Therapy Start Date: 11/23/2020 Contact in person or via telephone: Telephone Ms. Melinda Goncalves is a 60 y.o. (1960) female who was contacted in regard to specialty medication. Spoke with patient regarding Humira. A review of the medication therapy was performed. The medication was Refilled as scheduled, and all medication related questions and concerns were addressed.The specialty pharmacy staff will follow up with the patient 5-7 days prior to next refill. Is the patient willing to proceed with the Clinical Assessment? Yes Summary and Recommendations: Melinda Goncalves is a very pleasant 60 year old female who was contacted for a consultation on Humira.The patient states that she has not seen much improvement in her skin since starting Humira. She states that she stopped using topical steroids when she started Humira and noticed an immediate decline in the condition of her skin. She noted itching, burning, and peeling in her affected areas over the weekend. She states that she noticed an improvement in symptoms almost immediately after restarting topical steroids. Patient was advised to continue using the topical medications prescribed by herdermatologist until she notices improvement in her condition, at which point she and her provider can reassess. She was counseled that Humira can take up to 3-4 months to show full benefit. Melinda reports that she has not seen improvement but has not noticed any new areas being affected. Her most difficult problem areas are her groin, inner thighs, belly button, underarms, under her breasts, on her scalp and behind/inside her ears. Patient would like to continue Humira at this time. The patient experienced an issue with her first injection being unsuccessful. When she tried to inject, she states that it felt like a hornet sting which caused her to pull the injector out of her skin. She reached out to Specialty Pharmacy for advise on how to proceed. Since she received some of the first dose, she was advised not to repeat the injection but to proceed with her following doses as scheduled. We reviewed proper injection technique again during this consultation. She has not beenallowing the medication to come to room temperature which could have caused some of the discomfort.In addition, she did not allow the alcohol that she used to sterilize the area to dry and injected into the incorrect part of her thigh. She believes the issue she had with her first injection was due to the combination of errors above and has not experienced any issues with her subsequent injections. The patient is also on insulin therapy so she feels comfortable with the injection process otherwise. She was counseled that she may inject Humira and Lantus at the same time but not to inject in the same location and to rotate injection sites as best she can. After her first injection, she has decided to use her abdomen for injections as she does not feel the needle in that area. She is utilizing a sharps container for disposal. Medications and allergies were reviewed for accuracy. Melinda asked that we reach out to her provider for refills of calcipotriene and clobetasol. She denies any changes in medications, allergies or medical conditions. Patient has been injecting on schedule and denies experiencing any side effects from Humira. Denies recent infections. Patient is aware of Specialty Pharmacy services. Specialty Pharmacy will follow up with Melinda in 6 months for another consultation. Clinic follow-up needed: no Allergies and Drug intolerance: No Known Allergies Problem List: There is no problem list on file for this patient. Special Dietary or Hydration Requirements: no There is no height or weight on file to calculate BMI. Medication Reconciliation Discrepancies (compared to [facility] med list) no Medication Adherence Patient reported X missed doses in the last month: 0 Any gaps in refill history greater than 2 weeks in the last 3 months: no Demonstrates understanding of importance of adherence: yes Informant: patient Reliability of informant: reliable Provider-estimated medication adherence level: 90-100% Reasons for non-adherence: no problems identified Adherence tools used: calendar, directed education Support network for adherence: healthcare provider Confirmed plan for next specialty medication refill: delivery by pharmacy Refills needed for supportive medications: yes, ordered or provider notified Medication List: Current Outpatient Medications Medication Sig Dispense Refill ??? Adalimumab (Humira Pen Anyy-Ythuzg-Uqhg HS) 40 mg/0.8 mL Pen Injector Kit Inject 80mg subcutaneously on day 1 followed by 40mg on day 8 and 40mg every 14 days thereafter. 1 kit 0 ??? Humira Pen 40 mg/0.8 mL Pen Injector Kit Inject 0.8 mLs subcutaneously every 14 days. 1 kit 5 ??? clobetasoL (TEMOVATE) 0.05 % Ointment Apply topically twice a day on weekends, avoid face. 60 g0 ??? calcipotriene (Dovonex) 0.005 % Cream Apply [...] 3 Encounters: No data found for Pulse Pertinent Lab values: Lab Results Component Value [...] file for this patient. Assessment and Recommendations: Title Type of Medication Management: chronic disease management, targeted medication review Referred By: pharmacist Recipient: beneficiary Provider: plan sponsor pharmacist [place] [facility] [place] Method of Contact: by telephone Cognitive Ability: good Drug Interactions Provided the patient with educational material regarding drug interactions: yes Patient Counseling Counseled the patient on the following: reviewed medication changes since last visit, medication safety precautions education provided, drug interaction education provided to patient, doses and administration discussed, safe handling, storage, and disposal discussed, possible adverse effects and management discussed, possible drug and prescription drug interactions discussed, possible drug and OTC drug and food interactions discussed, lab monitoring and follow-up discussed, therapeutic rationale discussed, cost of medications and cost implications discussed, adherence and missed doses discussed, pharmacy contact information discussed, monitoring medication discussed, over the counter products discussed, reminder to refill or molded goods spot picker medication discussed Drug Medication Management Summary Topics discussed: reviewed medication changes since last visit, medication safety precautions education provided, drug interaction education provided to patient, doses and administration discussed, safe handling, storage, and disposal discussed, possible adverse effects and management discussed, possible drug and prescription drug interactions discussed, possible drug and OTC drug and food interactions discussed, lab monitoring and follow-up discussed, therapeutic rationale discussed, cost of medications and cost implications discussed, adherence and missed doses discussed, pharmacy contact information discussed, monitoring medication discussed, over the counter products discussed, reminder to refill or molded goods spot picker medication discussed Treatment Outcomes No data found in the [...] use oldest product first Relevant lab data Patient verbalizes understanding and is able to read-back instructions on self-administration/injection, proper storage, drug stability, importance of adherence and management strategies, side effectavoidance and mitigation strategies, and interruptions in therapy: Yes Physical and Cognitive Assessment: Functional limitations identified: no Cognitive limitations identified: no Concern regarding orientation/memory: no Concern with reasoning/judgement: no Is patient a fall risk: no Other needed information: no Social Assessment: Does the patient have a primary managed care coordinator? no Does the patient have an emergency contact on file: Yes Does patient need referral to social media executive: No Does patient need referral to advocacy group: No Home Health Assessment: Is the patient in a safe home environment? Yes Is the patient able to store their medication as directed? Yes Does the patient have a support network at home? Yes Reviewed potential home safety hazards with patient: Yes Economic Assessment: Patient is agreeable to medication copay: other (see comments) Medication was too soon to be filledthrough insurance until 12/17 Copay Amount: TBD - anticipated copay $5 Day Supply: 28 Date Needed: 12/28/2020 Copay assistance required: no Therapy Assessment: Appropriate Therapy: Yes Current Medication Dosing/Route/Frequency: Humira 40mg/0.8mL PNKT Inject the contents of one pen subcutaneously every 14 days Effective: Too soon to tell. Current Affected Areas: Groin, inner thighs, underarms, under breasts, in belly button, on various parts of scalp and head, behind and inside ears Improving Affected Areas: Stable Worsening Affected Areas: Areas worsened after therapy start because patient stopped using topical medications. Improved after she restarted topical medications Total BSA involved: ~12% Recent Skin Exacerbations/Flaring: yes - experienced flares because she stopped using topicals whenshe started Humira Recent Topical Corticosteroid Use: yes - calcipotriene cream during the week; clobetasol ointment on the weekends Relapsing/Remitting Factors: yes - patient stopped topical steroid use but saw improvement when sherestarted them Patient-Reported Side Effects: no Recent Infections: no Patient Goals: Patient's specific desired goal: 50% improvement in BSA involvement Measured by: BSA, patient reported symptoms Time-frame to meet goal: 6 months Is the patient on track to achieve goals of therapy? yes If no, what are the barriers and action plan to reach the goal: N/A Care Plan and Interventions: Care Plan Reviewed and Approved by both Pharmacist and Patient: Yes Did Care Plan Change? No If yes: Change to plans of care based on: Patient's request: n/a Condition: n/a Response to therapy: n/a Provider request: n/a Follow-up needed: No Interventions (if applicable): No Patient experienced change in condition that affects treatment: no Additional care/services needed: yes - refills of calcipotriene cream and clobetasol ointment Educational information or adherence tools provided: Yes Additional equipment/supplies required: no Counseling: Utilizing appropriate injection technique: yes - reviewed appropriate technique with patient as shehad difficulty with her first injection Rotation of Injection Sites: Yes Room Temperature Medication at Time of Injection: No , counseled patient to allow medication to come to room temperature prior to administration Pharmacist follow-up needed: Yes, routine Patient Satisfaction with Care/Services Provided: Yes Informed patient of specialty pharmacy services: Yes -Patient received welcome packet: Yes Date Received: 11/22/2020 Delivery Method: mail -Patient returned signed Rights & Responsibilities: Yes Date Received: 11/22/2020 Delivery Method: mail -Patient is aware a licensed pharmacist is available 24 hours a day, 7 days a week to discuss medication-related questions or concerns: Yes -Patient verbalizes understanding of education on the common side effect profile of the medication:Yes -The patient is able to call 911 or seek urgent care if signs/symptoms of allergy or harmful adverse reactions occur: Yes Patient Satisfaction with Therapy: yes - Patient understands no changes to current drug regimen were made at the appointment and that [facility] (summary located at top of note) for provider review and follow up. Vicente Pond [facility] 12/15/20 4:06 PM documented in this encounter Plan of Treatment Upcoming Encounters Date Type Department Care Team (Late st Contact Info) Description 02/01/2025 2:15 PM EDT Office Visit Dermatology at [address] [place] [address] Regina Rivas MD [facility] [place] [address] documented as of this encounter Visit Diagnoses Not on filedocumented in this encounter Care Teams Guest Relations Associate Relationship Specialty Start Date End Date Carolynn Wisdom APRN [address] [place] [address] [address] [facility] [address] [place] [address] PCP - General Family Medicine 03/08/20 documented as of this encounter
--- OUTSIDE RECORDS SUMMARY | 2024-01-17 18:06 | XMS_ITS | Encounter Summary ---
Author Organization [facility] [place] [address] Care Team Providers Care Platform Worker Name Role Phone Carolynn Wisdom DIRECTOR SALES Primary Care Provider Reason for Visit * Reason Comments Medication Management Encounter Details Date Type Department Care Team (Late st Contact Info) Description 05/04/2021 Specialty [place] [address] Daylin Alba Mirela Social History Tobacco Use Types Packs/Day Years Used Date Smoking Tobacco: Former Smokeless Tobacco: Never Sex and Gender Information Value Date Recorded Sex Assigned at Not on file Gender Identity Not on file Sexual Orientation Not on file documented as of this encounter Progress Notes * Daylin Alba RPH - 05/04/2021 12:27 PM EDT Clinical Management Plan: Refill Specialty Pharmacy Consultation; Daylin Alba Mirela Comprehensive Medication Management (CMM) Melinda Goncalves Ms. Melinda Goncalves is a 61 y.o. (1960) female who was contacted in regard to a specialty medication refill reminder. Contact made with patient regarding Humira. A review of the medication therapy was performed. The medication was refilled as scheduled, and all medication related questions andconcerns were addressed. The specialty pharmacy staff will follow up with the patient 5-7 days prior to next refill. Was a change made to the Care Plan: yes - patient missed 1 month of therapy due to tooth abscess and was instructed by provder to hold off on Humira unti it healed If yes, should the medication be held: No Assessment and Recommendations: Title Type of Medication Management: chronic disease management, targeted medication review Referred By: provider Recipient: beneficiary Provider: plan sponsor pharmacist [place] [facility] [place] Method of Contact: by telephone Cognitive Ability: good Allergies and Drug intolerance: No Known Allergies Medication Reconciliation Discrepancies (compared to [facility] med list) -no Specialty Pharmacy Refill Questionnaire Refill Questionnaire 05/04/2021 What is the name of the specialty medication you are refilling? - Are you taking any new medications? - Any new medical condition? - Any new allergies? - Any missed doses since your last fill? Yes Please explain 2 Any new side effects that are bothersome? - Please explain - What date will you need this fill by? - Adherence: Specialty Med Adherence Patient Demonstrates Understanding of Importance of Adherence: Yes Educational Information or Adherence Tools Provided: No Patient Reported X Missed Doses in the Last Month: 0 Provider-Estimated Medication Adherence Level: 90-100% Adherence Tools Used: directed education Pt understands no changes to current drug regimen were made at the appointment and that [facility] is providing recommendations (summary located at top of note) for provider review and follow up. Daylin Alba RPH 05/04/21 12:30 PM documented in this encounter Plan of Treatment Upcoming Encounters Date Type Department Care Team (Late st Contact Info) Description 02/01/2025 2:15 PM EDT Office Visit Dermatology at [facility] [address] [place] [address] Regina Rivas MD [facility] [place] [address] documented as of this encounter Visit Diagnoses Not on filedocumented in this encounter Care Teams Platform Worker Relationship Specialty Start Date End Date Carolynn Wisdom APRN [address] [place] [address] PCP - General Family Medicine 03/08/20 documented as of this encounter
--- OUTSIDE RECORDS SUMMARY | 2024-01-17 18:06 | XMS_ITS | Encounter Summary ---
Author Organization [facility] [place] [address] Care Team Providers Care Grain Combiner Name Role Phone MelodieCarolynn judd CANDE Primary Care Provider Encounter Details Date Type Department Care Team (Late st Contact Info) Description 10/17/2021 8:30 AM EDT TH Visit (TeleHealth) Weight and Wellness at [address] [address] Adult BMI 37.0-37.9 kg/sq m [...] - Inhaled Oxygen Concentration - - Weight 96.6 kg (213 lb) 10/17/2021 8:44 AM EDT pt reported from home Height 161.3 cm (5' 3.5) 10/17/2021 8: 44 AM EDT Body Mass Index 37.14 10/17/2021 8:44 AM EDT documented in this encounter Patient Instructions * Patient Instructions* Yessy Jonas RD - 10/17/2021 8:59 AM EDT Nutrition Goals: Track food intake - baritastic, bariatricpal, myfitnesspal Establish exercise routine - continue walking weekly, goal aerobic exercise 150 minutes per week and/or 10,000 steps per day; continue walking dog daily; add resistance exercise to routine - exercisebands, yoga, etc. Establish meal routine - 8am breakfast, 12/1pm lunch, 5/6pm dinner; Choose protein first at every eating event Separate eating and drinking by 30 minutes; increase intake to 48-64 ounces per day; work to eliminate carbonation; documented in this encounter Progress Notes * Yessy Jonas RD - 10/17/2021 8:30 AM EDT Nutrition Intervention for Weight Management Initial RD visit with TAWANNA Jiménez 1960 Assessment/Nutrition Diagnosis: Pt at increased nutritional risk related to excessive calorie intake and sub optimal physical activity resulting in overweight/obesity as evidenced by BMI and diet recall Telehealth / telephone visit conducted while patient was at home at the following address: [address] [place] [address] Weight Today: Wt Readings from Last 3 Encounters: 10/17/21 96.6 kg (213 lb) 09/05/21 99.7 kg (219 lb 12.8 oz) 08/08/21 99.8 kg (220 lb) BMI Readings from Last 3 Encounters: 10/17/21 37.14 kg/m?? 09/05/21 38.33 kg/m?? 08/08/21 38.97 kg/m?? Interview: tried ozempic - sick, side effects, vomiting, diarrhea, constant pain, dropped 15 pounds, dropped blood sugar to 70s/80s; off ozempic now; moved houses; it's been a harsh month; fallen off track in the last week; went to ride horse yesterday, he was injured, felt neglectful, can't ridehim until it heals; things feel heavy; Weight Loss History: See previous notes from this freelance writer and [facility] provider for full account Typical Dietary Intake: 6am coffee 8am B: yoruba muffin - 1 tsp jelly, butter L (skips): 4/4:30pm D (hungry): eat early D: pizza, ice cream 7/8pm S: small bowl cereal OR ice cream Typical Beverages: smoothie/protein shake; coffee - 1.5/day; carbonated water - 1-2L/day; no alcohol; decaf tea; Appetite/Hunger: [] feels managed with foods/meals outlined above [x] discussed meal/snack schedule adjustment today- see goals [...] week -can use therabands ??? Nutrition - 10/17/21 Nutrition Goals: ??? Track food intake - baritastic, bariatricpal, myfitnesspal ??? Establish exercise routine - continue walking weekly, goal aerobic exercise 150 minutes per week and/or 10,000 steps per day; continue walking dog daily; add resistance exercise to routine - exercise bands, yoga, etc. ??? Establish meal routine - 8am breakfast, 12/1pm lunch, 5/6pm dinner; Choose protein first at every eating event ??? Separate eating and drinking by 30 minutes; increase intake to 48-64 ounces per day; work to eliminate carbonation; ??? sleep ?? Continue to work with sleep at [facility] ?? Goal 7 hours of sleep [...] snacks, eat protein first [x] Total water intake, reduce carbonation [x] eating and drinking by 30 minutes on either side [] Sip rather than gulp [] Reduce coffee intake down to ~1 cup (caffeine) prior to surgery [] Reduce alcohol, ideally avoid [] Currently smoking? [] Former smoker, quit date: (2 months nicotine-free prior to surgery) Activity: walk dog daily; spend time with horse; yoga [x] reviewed current goals [] updated goals Barriers to Change: none identified today Nutrition Goals updated today: (1) exercise routine (2) establish meal routine - choose protein first (3) separate eating and drinking; increase water intake, reduce carbonation Monitor/Evaluate: [] Needs additional fuv scheduled with this freelance writer in No follow-ups on file. (OR) [x] Currently scheduled for: [x] 1st consecutive monthly nutrition visit [x] 2nd consecutive monthly nutrition visit [x] 3rd consecutive monthly nutrition visit (OR) [] Patient has met requirement of 3 consecutive monthly nutrition visits but agrees that ongoing support would be helpful and feasible. Above determined to the best ability of this freelance writer. Patient will contact bariatric surgery team [...] [facility] [address] [place] [address] Regina Rivas MD [facility] [place] [address] documented as of this encounter Goals Goal [...] adult documented in this encounter Care Teams Grain Combiner Relationship Specialty Start Date End Date Carolynn Wisdom APRN [address] [place] [address] PCP - General Family Medicine 03/08/20 documented as of this encounter
--- OUTSIDE RECORDS SUMMARY | 2024-01-17 18:06 | XMS_ITS | Encounter Summary ---
Author Organization [facility] [place] [address] Care Team Providers Care Medical Detail Representative Name Role Phone Carolynn Wisdom APRN Primary Care Provider Reason for Visit * Reason Comments Specialty Refill Management Encounter Details Date Type Department Care Team (Late st Contact Info) Description 03/15/2021 Specialty [place] [address] Tita Holman CPHT Social History Tobacco Use Types Packs/Day Years Used Date Smoking Tobacco: Former Smokeless Tobacco: Never Sex and Gender Information Value Date Recorded Sex Assigned at Not on file Gender Identity Not on file Sexual Orientation Not on file documented as of this encounter Progress Notes * Tita Holman CPHT - 03/15/2021 11:39 AM EDT Clinical Management Plan: Refill Specialty Pharmacy Consultation; Tita Holman CPHT Comprehensive Medication Management (CMM) Melinda Areli [...] Known Allergies Medication Reconciliation Discrepancies (compared to [facility] med list) No Specialty Pharmacy Refill Questionnaire Refill Questionnaire 03/15/2021 What is the name of the specialty medication you are refilling? Humira Are you taking any new medications? No Any new medical condition? No Any new allergies? No Any new side effects that are bothersome? No Please explain - What date will you need this fill by? 03/22/2021 Adherence: Any missed doses? No Patient understands no changes to current drug regimen were made. Tita Holman CPHT 03/15/21 11:40 AM documented in this encounter Plan of Treatment Upcoming Encounters Date Type Department Care Team (Late st Contact Info) Description 02/01/2025 2:15 PM EDT Office Visit Dermatology at [facility] [address] [place] [address] Regina Rivas MD [facility] [place] [address] documented as of this encounter Visit Diagnoses Not on filedocumented in this encounter Care Teams Medical Detail Representative Relationship Specialty Start Date End Date Carolynn Wisdom APRN [address] [place] [address] PCP - General Family Medicine 03/08/20 documented as of this encounter
--- OUTSIDE RECORDS SUMMARY | 2024-01-17 18:06 | XMS_ITS | Encounter Summary ---
Author Organization [facility] Address [facility] [place] [address] Care Team Providers Care Head Sulfide Operator Name Role Phone Carolynn Wisdom APRN Primary Care Provider Encounter Details Date Type Department Care Team (Latest Contact Info) Description 12/13/2021 2:30 PM EDT TH Visit (TeleHealth) Weight and Wellness at [address] [address] Iliana Peterson, PhD [facility] [address] Eating disorder, unspecified type Social History Tobacco Use Types Packs/Day Years Used Date Smoking Tobacco: Former Smokeless Tobacco: Never Sex and Gender Information Value Date Recorded Sex Assigned at Not on file Gender Identity Not on file Sexual Orientation Not on file documented as of this encounter Progress Notes * Iliana Peterson, PhD - 12/13/2021 2:30 PM EDT [facility] FOLLOW UP [facility] AT [address] [address] Dept: [phone] 12/13/2021 2:33 PM Time spent with patient: 30 minutes Location: Telehealth. Melinda Goncalves gave permission for and was seen for today's appointment with a Telehealth visit. During this visit they were located at home in [place]. Melinda L Sleath is aware that for any urgent matter they can call [phone]. Attendees: Patient SESSION #: 1 CHIEF COMPLAINT Emotional eating GOALS FOR THERAPY ??? Improve patient's stress management skills to prevent emotional eating and other maladaptive coping S/O Since the previous session, Melinda Goncalves reported removing all snacky foods from her offices/work desks, car, etc, which has helped decrease emotional eating over the past two weeks. She endorsed 2-3 episodes of mild emotional eating (e.g., chips that her son brought home) in in the past week.She described pattern of feeling very hungry and stressed at the end of a long work day, not havingany easily accessible, healthy options, feeling too tired to prepare a healthy meal, turning to convenient/comfort foods. Patient came up with small goal to start with having easily accessible Lean Cuisines or other dinner options during this busy phase of work. She reported when work becomes less hectic she will resumecooking/meal prep, as she loves to cook. Described unwinding with wine/beer nightly over the past week - discussed risks of this pattern related to her surgery goals, she expressed understanding and asked appropriate questions. I introduced the cognitive behavioral model and discussed problematic eating patterns, including restrictive eating cycle and emotional eating cycle. Patient reflected on how the model fits her own eating. Made plan to begin identifying alternate coping skills to replace eating as a source of self-soothing. A Diagnosis: Unspecified eating disorder Mental status: No SI. Mental status WNL. Fully engaged in therapy process. P Between sessions, Melinda will implement plan to keep easily prepared dinners at home (e.g., frozen protein bowl meals) to prevent comfort/convenience eating at night after work Follow-up appointment schedule for return in 2 Weeks. Melinda Goncalves has my contact information and was encouraged to reach out to me in the future as needed. Iliana Peterson, Ph.D. documented in this encounter Plan of Treatment Upcoming Encounters Date Type Department Care Team (Late st Contact Info) Description 02/01/2025 2:15 PM EDT Office Visit Dermatology at [facility] [address] [place] [phone] Regina Rivas MD [facility] [place] [address] documented as of this encounter Goals Goal [...] type documented in this encounter Care Teams Head Sulfide Operator Relationship Specialty Start Date End Date Carolynn Wisdom APRN [address] [place] [address] PCP - General Family Medicine 03/08/20 documented as of this encounter
--- OUTSIDE RECORDS SUMMARY | 2024-01-17 18:06 | XMS_ITS | Encounter Summary ---
Author Organization [place] [address] Care Team Providers Care Garage Door Opener Installer Name Role Phone Carolynn Wisdom FURNACE MASON Primary Care Provider Encounter Details Date Type Department Care Team (Late st Contact Info) Description 07/19/2021 Notes Only Weight and Wellness at [address] [address] Renetta Rasmussen, RN Social History Tobacco Use Types Packs/Day Years Used Date Smoking Tobacco: Former Smokeless Tobacco: Never Sex and Gender Information Value Date Recorded Sex Assigned at Not on file Gender Identity Not on file Sexual Orientation Not on file documented as of this encounter Progress Notes * Renetta Rasmussen - 07/19/2021 10:39 AM EST [facility] New Patient Referral Chart Prep Note Melinda Goncalves 1960 Referring Provider: Manda [x] [facility] referral (Epic) [] External Referral (scanned document) Referral documents available [x] Referral [x] Most recent PCP note or care summary - date: 05/11/21 [x] Labs [] in Epic [x] Scanned / [x] Entered into EPIC [] Imaging [] in Epic [] Scanned / Type and date: Requested today: Chart Prep [x] Height [x] Added to sticky [x] Weight [x] Added to sticky For Bariatric Surgery Referral [x] BSP Start weight: 222lb [x] Add to sticky [x] Information session attended / date: 07/07/21 [x] BSP Checklist documented in this encounter Plan of Treatment Upcoming Encounters Date Type Department Care Team (Late st Contact Info) Description 02/01/2025 2:15 PM EDT Office Visit Dermatology at [facility] [address] [place] [address] Regina Rivas MD [facility] [place] [address] documented as of this encounter Visit Diagnoses Not on filedocumented in this encounter Care Teams Garage Door Opener Installer Relationship Specialty Start Date End Date Carolynn Wisdom APRN [address] [place] [address] PCP - General Family Medicine 03/08/20 documented as of this encounter
--- OUTSIDE RECORDS SUMMARY | 2024-01-17 18:06 | XMS_ITS | Encounter Summary ---
Author Organization [facility] [place] [address] Care Team Providers Care Cross Country Truck Driver Name Role Phone Carolynn Wisdom DIE MAINTENANCE Primary Care Provider Reason for Visit * Reason Comments Medication Management Encounter Details Date Type Department Care Team (Late st Contact Info) Description 07/24/2021 Specialty [place] [address] Christin Connors V, [facility] Social History Tobacco Use Types Packs/Day Years Used Date Smoking Tobacco: Former Smokeless Tobacco: Never Sex and Gender Information Value Date Recorded Sex Assigned at Not on file Gender Identity Not on file Sexual Orientation Not on file documented as of this encounter Progress Notes * Christin Connors V [facility] - 07/24/2021 10:17 AM EST Clinical Management Plan: Refill Specialty Pharmacy Consultation; Christin Connors [facility] Comprehensive Medication Management (CMM) Melinda Singleton Sacha Ms. Melinda Goncalves is a 61 [...] Known Allergies Medication Reconciliation Discrepancies (compared to [facility] med list) No Specialty Pharmacy Refill Questionnaire Refill Questionnaire 07/24/2021 What is the name of the specialty medication you are refilling? Stelara Are you taking any new medications? No Any new medical condition? No Any new allergies? No Any new side effects that are bothersome? No Please explain - What date will you need this fill by? 07/29/2021 Adherence: Any missed doses? No Patient understands no changes to current drug regimen were made. Christin Connors RPH 07/24/21 10:19 AM documented in this encounter Plan of Treatment Upcoming Encounters Date Type Department Care Team (Late st Contact Info) Description 02/01/2025 2:15 PM EDT Office Visit Dermatology at [facility] [address] [place] [address] Regina Rivas MD [facility] [place] [address] documented as of this encounter Visit Diagnoses Not on filedocumented in this encounter Care Teams Cross Country Truck Driver Relationship Specialty Start Date End Date Carolynn Wisdom APRN [address] [place] [address] PCP - General Family Medicine 03/08/20 documented as of this encounter
--- OUTSIDE RECORDS SUMMARY | 2024-01-17 18:06 | XMS_ITS | Encounter Summary ---
Author Organization [facility] [place] [address] Care Team Providers Care Plant Controller Name Role Phone Carolynn Wisdom APRN Primary Care Provider Reason for Visit * Reason Comments Prior Authorization stelara 90mg/ml sosy Encounter Details Date Type Department Care Team (Late st Contact Info) Description 06/19/2021 Specialty [place] [address] Ibeth Bermudez, [facility] Social History Tobacco Use Types Packs/Day Years Used Date Smoking Tobacco: Former Smokeless Tobacco: Never Sex and Gender Information Value Date Recorded Sex Assigned at Not on file Gender Identity Not on file Sexual Orientation Not on file documented as of this encounter Progress Notes * Ibeth Roger - 06/19/2021 1:56 PM EST [facility], Medication Prior Authorization Submission Patient: Melinda Goncalves Patient : 1960 Patient Address: [address] [place] [phone] (home) Medication Name: STELARA 90 MG/ML SUBCUTANEOUS SYRINGE Medication ID: [id number] Subscriber Insurance: Ruel ATWOOD (N IS) Subscriber Insurance Comment: Phone: Fax: Physician: MAXI MASON Physician Comment: Sent Via: [facility] Oneal: [id number] Ref/Case/PA#: Medication Strength Frequency Requested: INJECT THE CONTENTS OF ONE SYRINGE (90 MG) SUBCUTANEOUSLY AT WEEKS 0, 4 AND EVERY 12 WEEKS THERAFTER Qty/Day Supply: 07/28 New Start: New to Therapy Diagnosis & ICD-10 Code: Psoriasis L40.9 Patient Notified: Yes Submission Notes: None Ibeth Roger 06/19/21 1:58 PM * Ibeth Roger - 06/19/2021 1:56 PM EST [facility], Prior Authorization Approval Medication Name: STELARA 90 MG/ML SUBCUTANEOUS SYRINGE Medication ID: [id number] Approval Dates: 06/19/2021 to 06/19/2022 Insurance requirements/notes: None Other Notes: None Case/Reference #: [id number] Approval notification Received via: Fax Copay: $0.00 Copay assistance: Copay Notes: Insurance mandated Pharmacy: D Pharmacy Fillable at [facility]: Yes Pharmacy staff will be reaching out to the patient to inform them of their medication's [facility]. If applicable, a pharmacist will speak with the patient to offer our specialty pharmacy services and to arrange delivery of their medication. Ibeth Roger 06/19/21 2:34 PM documented in this encounter Plan of Treatment Upcoming Encounters Date Type Department Care Team (Late st Contact Info) Description 02/01/2025 2:15 PM EDT Office Visit Dermatology at [facility] [address] [place] [address] Regina Rivas MD [facility] [place] [address] documented as of this encounter Visit Diagnoses Not on filedocumented in this encounter Care Teams Plant Controller Relationship Specialty Start Date End Date Carolynn Wisdom APRN [address] [place] [address] PCP - General Family Medicine 03/08/20 documented as of this encounter
--- OUTSIDE RECORDS SUMMARY | 2024-01-17 18:06 | XMS_ITS | Encounter Summary ---
[place] [address] Care Team Providers Care Well Logging Operator Mud Analysis Name Role Phone Carolynn Wisdom FOREPART ROUNDER Primary Care Provider Encounter Details Date Type Department Care Team (Late st Contact Info) Description 12/21/2021 9:30 AM EDT TH Visit (TeleHealth) Weight and Wellness at [address] [address] Adult BMI 36.0-36.9 kg/sq m Social History Tobacco Use Types Packs/Day Years Used Date Smoking Tobacco: Former Smokeless Tobacco: Never Sex and Gender Information Value Date Recorded Sex Assigned at Not on file Gender Identity Not on file Sexual Orientation Not on file documented as of this encounter Patient Instructions * Patient Instructions* Yessy Jonas RD - 12/21/2021 9:56 AM EDT Nutrition Goals: Focus on meal planning - plan and prepare for meals; especially focus on lunch and plan ahead/prepare for dinner, bring snack to barn Establish meal routine - 9/10am breakfast, 1pm lunch, 6/7pm dinner; Choose protein first at every eating event; avoid skipping meals Practice bariatric drinking behaviors - Separate eating and drinking by 30 minutes, especially after meals; increase water intake to 48-64 ounces per day; eliminate carbonation and alcohol; documented in this encounter Progress Notes * Yessy Jonas, RD - 12/21/2021 9:30 AM EDT Nutrition Intervention for Weight Management Initial RD visit with TAWANNA Jiménez 1960 Telehealth / telephone visit conducted while patient was at home at the following address: [address] [address] Weight Today: no new weight today Wt Readings from Last 3 Encounters: 11/16/21 96.2 kg (212 lb) 10/17/21 96.6 kg (213 lb) 09/05/21 99.7 kg (219 lb 12.8 oz) BMI Readings from Last 3 Encounters: 11/16/21 36.96 kg/m?? 10/17/21 37.14 kg/m?? 09/05/21 38.33 kg/m?? 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 provider for full account Typical Dietary Intake: last few weeks - eating whatever, adverse affect on sleep, energy, body, etc; eliminated sweet snacks 7:45/9am B: arabic muffin, peanut butter OR 2-3pm L: raisins/peanuts 7/8pm D (skipped 3x/week): S: Typical Beverages: seltzer - 1can 3x/week; water with crystal light or plain - ; coffee 1-2 cups/day; alcohol - 1-2x/week; Appetite/Hunger: [x] feels managed with foods/meals outlined [...] week -can use therabands ??? Nutrition - 11/07/21 Nutrition Goals: ??? Focus on meal planning [...] ?? Continue to work with sleep at [facility] ?? Goal 7 hours of sleep [...] eat protein first [x] Total water intake [x] eating and drinking by 30 minutes on either side; before not a problem, during is not enjoyable, not waiting entire 30 minutes after [] Sip rather than gulp [x] Reduce coffee intake down to ~1 cup (caffeine) prior to surgery [x] Reduce alcohol, ideally avoid [] Currently smoking? [] Former smoker, quit date: (2 months nicotine-free prior to surgery) Activity: not reviewed today [] reviewed current goals [] updated goals Barriers to Change: none identified today Nutrition Goals updated today: (1) meal planning (2) consistent meal routine (3) bariatric drinkingbehaviors Monitor/Evaluate: [] Needs additional fuv scheduled with this policy writer in No follow-ups on file. (OR) [] Currently scheduled for: [] 1st consecutive monthly nutrition visit [] 2nd consecutive monthly nutrition visit [] 3rd consecutive monthly nutrition visit (OR) [x] Patient has met requirement of 3 consecutive monthly nutrition visits but agrees that ongoing support would be helpful and feasible. Above determined to the best ability of this policy writer. Patient will contact bariatric surgery team [...] 2:15 PM EDT Office Visit Dermatology at [facility] [address] [place] [address] Regina Rivas MD [facility] [place] [address] documented as of this encounter Goals Goal [...] Note: Continue to work with sleep at [facility] Goal 7 hours of sleep nightly. [...] this encounter Visit Diagnoses Diagnosis Adult BMI 36.0-36.9 kg/sq m Body Mass Index 36.0-36.9, adult documented in this encounter Care Teams Well Logging Operator Mud Analysis Relationship Specialty Start Date End Date Carolynn Wisdom APRN [address] [place] [address] PCP - General Family Medicine 03/08/20 documented as of this encounter
--- OUTSIDE RECORDS SUMMARY | 2024-01-17 18:06 | XMS_ITS | Encounter Summary ---
Author Organization [facility] [place] [address] Care Team Providers Care Deportation Examiner Name Role Phone Carolynn Wisdom APRN Primary Care Provider Reason for Visit * Reason Comments Specialty Pharmacy Review Encounter Details Date Type Department Care Team (Late st Contact Info) Description 11/16/2020 Specialty [place] [address] Nisreen Baires Social History Tobacco Use Types Packs/Day Years Used Date Smoking Tobacco: Former Smokeless Tobacco: Never Sex and Gender Information Value Date Recorded Sex Assigned at Not on file Gender Identity Not on file Sexual Orientation Not on file documented as of this encounter Progress Notes * Nisreen Baires - 11/16/2020 11:59 PM EDT [facility] has completed a benefits investigation for Melinda Goncalves to review their eligibility to fill at [facility]. Per patient's medication list they are prescribed HUMIRA PEN 40 MG/0.8 ML and the medication is able to be filled at the [facility]. documented in this encounter Plan of Treatment Upcoming Encounters Date Type Department Care Team (Late st Contact Info) Description 02/01/2025 2:15 PM EDT Office Visit Dermatology at [facility] [address] [place] [address] Regina Rivas MD [facility] [place] [address] documented as of this encounter Visit Diagnoses Not on filedocumented in this encounter Care Teams Deportation Examiner Relationship Specialty Start Date End Date Carolynn Wisdom APRN [address] [place] [address] PCP - General Family Medicine 03/08/20 documented as of this encounter
--- OUTSIDE RECORDS SUMMARY | 2024-01-17 18:06 | XMS_ITS | Encounter Summary ---
Author Organization [facility] [place] [address] Care Team Providers Care Production Control Expediter Name Role Phone Carolynn Wisdom APRN Primary Care Provider Encounter Details Date Type Department Care Team (Late st Contact Info) Description 07/07/2021 2:00 PM EST Notes [place] [address] Social History Tobacco Use Types Packs/Day Years Used Date Smoking Tobacco: Former Smokeless Tobacco: Never Sex and Gender Information Value Date Recorded Sex Assigned at Not on file Gender Identity Not on file Sexual Orientation Not on file documented as of this encounter Progress Notes * Anitha Cruz - 07/07/2021 2:00 PM EST PATIENT ATTENDED THE [facility]BEX INTRO TO BARIATRIC SURGERY ON 07/07/2021 FOR THE WABASSO PROGRAM documented in this encounter Plan of Treatment Upcoming Encounters Date Type Department Care Team (Late st Contact Info) Description 02/01/2025 2:15 PM EDT Office Visit Dermatology at [facility] [address] [place] [address] Regina Rivas MD [facility] [place] [address] documented as of this encounter Visit Diagnoses Not on filedocumented in this encounter Care Teams Production Control Expediter Relationship Specialty Start Date End Date Carolynn Wisdom APRN [address] [place] [address] PCP - General Family Medicine 03/08/20 documented as of this encounter
--- OUTSIDE RECORDS SUMMARY | 2024-01-17 18:06 | XMS_ITS | Encounter Summary ---
Author Organization [facility] [place] [address] Care Team Providers Care Bull Chain Operator Name Role Phone MelodieCarolynn judd CANDE Primary Care Provider Encounter Details Date Type Department Care Team (Late st Contact Info) Description 12/01/2021 Telephone General Surgery at [facility] [place] [phone] Anitha Cruz Social History Tobacco Use Types Packs/Day Years Used Date Smoking Tobacco: Former Smokeless Tobacco: Never Sex and Gender Information Value Date Recorded Sex Assigned at Not on file Gender Identity Not on file Sexual Orientation Not on file documented as of this encounter Miscellaneous Notes * Telephone Encounter - Anitha Cruz - 12/01/2021 10:21 AM EDT Melinda called to see if she could come to [facility] for a HSAT as she went to a provider in [facility] for a sleep consult and a HSAT was recommended but her insurance wont cover a study done in [place]. I advised that she would need to call her insurance and get more clarification on why the study was being denied. Was it because HEATHER was not suspected in her initial consult and there was no supporting documentation to warrant the need for a study? Or was it simply denied for needing a [place] provider. Ifso, she needs to ask if they will cover another duplicated consult with so that she can go through the motions of getting a study done in [place]. She is going to call her insurance and get more details before proceeding with a sleep study. If she wants/needs to come to then a referral will need to be entered to [facility] sleep and connected to them for scheduling a consult documented in this encounter Plan of Treatment Upcoming Encounters Date Type Department Care Team (Late st Contact Info) Description 02/01/2025 2:15 PM EDT Office Visit Dermatology at [facility] [address] [place] [address] Regina Rivas MD [facility] [address] [place] [address] documented as of this encounter Goals Goal [...] Note: Continue to work with sleep at [facility] Goal 7 hours of sleep nightly. Recommend consistent sleep and wake times, avoid electronics within one hour of sleep time movement Lifestyle No Michelle Jaquez, CERTIFIED MORTICIAN Note: Exercise goal is 150 -300 min [...] on filedocumented in this encounter Care Teams Bull Chain Operator Relationship Specialty Start Date End Date Carolynn Wisdom APRN [address] [place] [address] PCP - General Family Medicine 03/08/20 documented as of this encounter
--- OUTSIDE RECORDS SUMMARY | 2024-01-17 18:06 | XMS_ITS | Encounter Summary ---
Author Organization [facility] [place] [address] Care Team Providers Care Casino Cage Manager Name Role Phone Carolynn Wisdom CLINICAL DOCUMENTATION MANAGER Primary Care Provider Reason for Visit * Reason Comments Medication Management Patient Education Encounter Details Date Type Department Care Team (Late Contact Info) Description 11/16/2020 Specialty [place] [address] Roberta Ricci RPH Social History Tobacco Use Types Packs/Day Years Used Date Smoking Tobacco: Former Smokeless Tobacco: Never Sex and Gender Information Value Date Recorded Sex Assigned at Not on file Gender Identity Not on file Sexual Orientation Not on file documented as of this encounter Progress Notes * Roberta Ricci RPH - 11/16/2020 10:26 AM EDT Specialty Pharmacy Consultation; Roberta Ricci RPH Comprehensive Medication Management (CMM) Melinda Goncalves Diagnosis: Psoriasis Therapy Start Date: TBD- New start Contact in person or via telephone: In clinic Ms. Melinda Goncalves is a 60 y.o. (1960) female who was contacted in regard to specialty medication. Spoke with patient regarding Humira . A review of the medication therapy [...] seen in clinic for a review of Humira for the treatment of plaque psoriasis. Patient is aware of the prior authorization process and timeline and was given [facility] contact information for any questions. Patient was educated on the Humira labeled black box warnings regarding the risk of serious infections including tuberculosis and malignancies. Discussed other precautions with Humira including anaphylaxis/hypersensitivity and hepatitis B reactivation. Patient denies personal history of demyelinating disease or heart failure and was made aware of these precautions as well. Patient was educated on the importance of infection prevention including best practices for hand hygiene and the annual fluvaccine. Discussed the need to avoid live vaccines during treatment. Dose hold parameters were reviewed including suspected/known infection, prescribed antibiotic therapy, or scheduled surgery. Patient agrees to contact the clinic to review dose hold in these settings. Educated patient on the potential side effects of Humira including injection site reaction, headache, rash, and infections such as URTI/sinusitis. Discussed with patient that it may take 3-4 months to experience the full benefit of Humira. A review of dosing, storage, and administration was completed. Patient was educated on the dosing schedule, 80 mg subcutaneously initially, then 40 mg every 2 weeks beginning 1 week after initial dose. Patient was made aware that Humira must be stored in the refrigerator and remains stable at room temperature for 14 days. Demonstration of injection technique was performed using Humira training kit. Patient was advised on proper site rotation, site sterilization, and allowing the medication to reach room temperature prior to injection. Patient was able to demonstrate appropriate injection technique and required no remedial counseling. Patient was encouraged to schedule an injection teaching a ppointment if they prefer to have first injection completed with medical oversight and was directedto view additional online video resources if needed. Patient will be provided with a sharps container and disposal of pens was discussed. FH: Grandfather maternal cancer, father heart disease, no MS. Latex allergy: No Sharps container. Clinic follow-up needed: yes - will follow up with patient pending approval Allergies and Drug intolerance: No Known Allergies Problem List: There is no problem list on file for this patient. Special Dietary or Hydration Requirements: no There is no height or weight on file to calculate BMI. Medication Reconciliation Discrepancies (compared to [facility] med list) -none Medication List: Current Outpatient Medications Medication Sig Dispense Refill ??? triamcinolone (KENALOG) 0.1 % Cream as [...] data found for Pulse Pertinent Lab values: No results found for: ALT, AST, GGT, ALKPHOS, BILITOT, BILIDIR, ALBUMIN, PROT No results found for: WBC, HGB, HCT, MCV, PLATELET No results found for: HA1C There is no immunization history on file for this patient. Assessment and Recommendations: Title Drug Treatment Outcomes No data found in the [...] Assessment: Does the patient have a primary before and after school daycare worker? no Does the patient have an emergency contact on file: Yes Does patient need referral to managed services consultant: No Does patient need referral to advocacy group: No Home Health Assessment: Is the patient in a safe home environment? Yes Is the patient able to store their medication as directed? Yes Does the patient have a support network at home? Yes Reviewed potential home safety hazards with patient: Yes Economic Assessment: Patient is agreeable to medication copay: Yes-TBD Copay Amount: TBD Day Supply: 28 Date Needed: AMEENA- new start Copay assistance required: will assess once approved Therapy Assessment: Current Medication Dosing/Route/Frequency: Humira 40mg/0.8mL. Inject 80 mg subcutaneously initially, then 40 mg every 2 weeks beginning 1 week after initial dose Appropriate Therapy: Yes Current Affected Areas: groin area, belly button, below the breasts Total BSA involved: 12% Recent Skin Exacerbations/Flaring: yes - currently flaring Recent Topical Corticosteroid Use: yes - triamcinolone Relapsing/Remitting Factors: no Diagnosis of Psoriatic Arthritis: No Patient's Problems/Needs: Will initiate PA process and coordinate copay card and filling as needed Expected Outcome: Clearance of widespread skin involvement refractory to topical therapy Patient's goals: Patient's specific desired goal: 50% skin clearance within first 3 months of therapy Measured by: Clinical follow up Time-frame to meet goal: 3 months Care Plan Reviewed and Approved by both Pharmacist and Patient: Yes Interventions (if applicable): No Additional care/services needed: yes - offered teaching appointment, patient notes that she feels comfortable and will call with any issues Educational information or adherence tools provided: No Additional equipment/supplies required: yes - sharps container Monitoring requirements for prescribed medication: Improvement of symptoms,TB screening, HBV screening, CBC, signs/symptoms of active infections, heart failure, hypersensitivity, and malignancy Pharmacist follow-up needed: Yes Patient Satisfaction with care/services provided: Yes Informed patient of specialty pharmacy services: Yes -Patient will be provided with welcome packet: Yes Date to be provided: TBD Delivery Method: Mail -Patient will be provided with Rights & Responsibilities: Yes Date to be provided: TBD Delivery Method: Mail -Patient is aware a licensed pharmacist is [...] were made at the appointment and that RPh isproviding recommendations (summary located at top of note) for provider review and follow up. Roberta Ricci RPH 11/16/20 10:26 AM documented in this encounter Plan of Treatment Upcoming Encounters Date Type Department Care Team (Late st Contact Info) Description 02/01/2025 2:15 PM EDT Office Visit Dermatology at [facility] [address] [place] [address] Regina Rivas MD [facility] [place] [address] documented as of this encounter Visit Diagnoses Not on filedocumented in this encounter Care Teams Casino Cage Manager Relationship Specialty Start Date End Date Artis CANDE Pradhan [address] [place] [address] PCP - General Family Medicine 03/08/20 documented as of this encounter
--- OUTSIDE RECORDS SUMMARY | 2024-01-17 18:06 | XMS_ITS | Encounter Summary ---
Author Organization [facility] [place] [address] Care Team Providers Care Senior Accountant Cpa Name Role Phone Carolynn Wisdom CHANNELER INSOLE Primary Care Provider Reason for Visit * Reason Comments Medication Management Encounter Details Date Type Department Care Team (Late st Contact Info) Description 04/06/2021 Specialty [place] [address] Roberta Ricci Mirela Social History Tobacco Use Types Packs/Day Years Used Date Smoking Tobacco: Former Smokeless Tobacco: Never Sex and Gender Information Value Date Recorded Sex Assigned at Not on file Gender Identity Not on file Sexual Orientation Not on file documented as of this encounter Progress Notes * Roberta Ricci RPH - 04/06/2021 2:31 PM EDT Clinical Management Plan: Medication Question Specialty Pharmacy Consultation; Roberta Ricci Mirela Comprehensive Medication Management (CMM) Melinda Goncalves is a 61 y.o. (1960) female who contacted Specialty Pharmacy regarding aconcern with their specialty medication, Humira. Summary and Recommendations: Spoke with Melinda Goncalves for follow up for a question that she had in regards to her Humira refill. Patient notes that she has been on antibiotics for a tooth abscess and today is her 10th and final day of the course. She is also due for a Humira injection today and was wondering if should continue with the injection even though she is on the antibiotics or if she should hold. She also notes that she is set to have the tooth pulled in early May. After consulting with staff physician Bar Mei MD I let her know that his recommendation was to hold therapy until she is able to have the tooth removed. Due to the severity of infection potential he felt that the risk could outweigh the benefit. Patient verbalizes understanding and agrees with this plan. She notes that her skin is inthe best condition that it has been in months so she feels that she is in an okay place to wait at this point. She has topicals on hand to hold her over in case of a flare off of the Humira. She asked that we postpone her refill calls x1 month and she agrees to call with any significant changes to her skin condition or dental plan. Clinic follow-up needed: yes - will follow up in about a month to assess need for refill at that time Was a change made to the Care Plan: yes - patient will continue to hold medication until after tooth removal If yes, should the medication be held: Yes Pt understands no changes to current drug regimen were made at the appointment and that [facility] is providing recommendations (summary located at top of note) for provider review and follow up. Roberta Ricci RPH 04/06/21 2:33 PM documented in this encounter Plan of Treatment Upcoming Encounters Date Type Department Care Team (Late st Contact Info) Description 02/01/2025 2:15 PM EDT Office Visit Dermatology at [facility] [address] [place] [address] Regina Rivas MD [facility] [address] [place] [address] documented as of this encounter Visit Diagnoses Not on filedocumented in this encounter Care Teams Senior Accountant Cpa Relationship Specialty Start Date End Date Carolynn Wisdom APRN [address] [place] [address] PCP - General Family Medicine 03/08/20 documented as of this encounter
--- OUTSIDE RECORDS SUMMARY | 2024-01-17 18:06 | XMS_ITS | Encounter Summary ---
Author Organization [facility] [place] [address] Care Team Providers Care Hand Dry Cleaner Name Role Phone Carolynn Wisdom APRN Primary Care Provider Reason for Visit * Reason Onset Date Comments Medication Refill 06/19/2021 Encounter Details Date Type Department Care Team (Late st Contact Info) Description 06/19/2021 Refill Dermatology at [facility] [address] [place] [phone] Lisa Vasquez MD [facility] [place] [address] Social History Tobacco Use Types Packs/Day Years [...] 2:15 PM EDT Office Visit Dermatology at [facility] [address] [place] [phone] Regina Rivas MD [facility] [place] [address] documented as of this encounter Visit Diagnoses Not on filedocumented in this encounter Care Teams Hand Dry Cleaner Relationship Specialty Start Date End Date Carolynn Wisdom APRN [address] [place] [address] PCP - General Family Medicine 03/08/20 documented as of this encounter
--- OUTSIDE RECORDS SUMMARY | 2024-01-17 18:06 | XMS_ITS | Encounter Summary ---
Author Organization Count Includes [facility] [address] Care Team Providers Care Full Time Babysitter Name Role Phone MelodieCarolynn judd CANDE Primary Care Provider Encounter Details Date Type Department Care Team (Late st Contact Info) Description 08/07/2021 Telephone Weight and Wellness at [address] [phone] Kailyn Peng, MASH PREPARATORY OPERATOR Social History Tobacco Use Types Packs/Day Years Used Date Smoking Tobacco: Former Smokeless Tobacco: Never Sex and Gender Information Value Date Recorded Sex Assigned at Not on file Gender Identity Not on file Sexual Orientation Not on file documented as of this encounter Miscellaneous Notes * Telephone Encounter - Kailyn Peng CMA - 08/07/2021 3:52 PM EST [facility] Link Assembler Pre-telemedicine Visit Phone Note Melinda Goncalves 1960 [] Patient was not reached Patient was reached and the following information was reviewed/obtained per protocol: [x] Confirmed patient name and date of [x] Confirmed ZOOM downloaded and functioning [] ZOOM appointment link sent if no MyDH [x] Phone number to be reached is: [phone] REVIEW: [] Review of patient medications completed Have you started on any NEW medications? [] No [] Yes: [x] Confirmed preferred pharmacy: [facility] Rem[facility] Your provider might ask you what [...] [facility] [address] [place] [address] Regina Rivas MD [facility] [place] [address] documented as of this encounter Visit Diagnoses Not on filedocumented in this encounter Care Teams Full Time Babysitter Relationship Specialty Start Date End Date Carolynn Wisdom APRN [address] [place] [address] PCP - General Family Medicine 03/08/20 documented as of this encounter
--- OUTSIDE RECORDS SUMMARY | 2024-01-17 18:06 | XMS_ITS | Encounter Summary ---
Author Organization [facility] [place] [address] Care Team Providers Care Toxicologist Name Role Phone MelodieCarolynn judd AIRPORT RAMP SUPERVISOR Primary Care Provider Encounter Details Date Type Department Care Team (Late st Contact Info) Description 01/03/2022 Telephone [place] [phone] Anitha Cruz Social History Tobacco Use Types Packs/Day Years Used Date Smoking Tobacco: Former Smokeless Tobacco: Never Sex and Gender Information Value Date Recorded Sex Assigned at Not on file Gender Identity Not on file Sexual Orientation Not on file documented as of this encounter Miscellaneous Notes * Telephone Encounter - Anitha Cruz Areli - 01/03/2022 1:39 PM EDTSummary: Bariatric Surgery Status Returned call to Melinda letting her know that we are still waiting on the sleep apnea worksheet to determine whether a referral to sleep is needed (I emailed her a new copy). She went out of order and contacted the sleep center in [place] for her evaluation which was done however, the sleep studywas denied by her insurance as she is out of network. I advised that once she returns the form we can discuss the sleep issue further. I also let her know that we are waiting on her completion of thepsychological evaluation giving her the green light status. She has a visit with them today and we will see what the results yield. In order for her to get her NPW we need the green light and completion of her sleep apnea worksheet to determine the next step. documented in this encounter Plan of Treatment Upcoming Encounters Date Type Department Care Team (Late st Contact Info) Description 02/01/2025 2:15 PM EDT Office Visit Dermatology at [facility] [address] [place] [address] Regina Rivas MD [facility] [place] [address] documented as of this encounter Goals Goal [...] sleep time movement Lifestyle No Michelle Jaquez, AIRPORT RAMP SUPERVISOR Note: Exercise goal is 150 -300 min [...] on filedocumented in this encounter Care Teams Toxicologist Relationship Specialty Start Date End Date Carolynn Wisdom APRN [address] [place] [address] PCP - General Family Medicine 03/08/20 documented as of this encounter
--- OUTSIDE RECORDS SUMMARY | 2024-01-17 18:06 | XMS_ITS | Encounter Summary ---
Author Organization [facility] [place] [address] Care Team Providers Care Campaign Associate Name Role Phone Carolynn Wisdom FLEET SERVICE CLERK Primary Care Provider [phone] Reason for Visit * Reason Comments Specialty Refill Management Medication Management Encounter Details Date Type Department Care Team (Late st Contact Info) Description 02/15/2021 Specialty [place] [address] Viridiana Lemus Mirela Social History Tobacco Use Types Packs/Day Years Used Date Smoking Tobacco: Former Smokeless Tobacco: Never Sex and Gender Information Value Date Recorded Sex Assigned at Not on file Gender Identity Not on file Sexual Orientation Not on file documented as of this encounter Progress Notes * Viridiana Lemus RPH - 02/15/2021 2:39 PM EDT Clinical Management Plan: Refill Specialty Pharmacy Consultation; Viridiana Lemus Mirela Comprehensive Medication Management (CMM) Melinda L Sacha Ms. Melinda Goncalves is a 61 [...] patient 5-7 days prior to next refill. Patient notes muscle pain and stiffness on the side of her injection. She says the affected areas are from her neck down to her ankles. Her most bothersome area are her legs. She says this has gottenprogressively worse and is now persistent daily. Was a change made to the Care Plan: no If yes, should the medication be held: No Assessment and Recommendations: Title Type of Medication Management: chronic disease management, targeted medication review Referred By: pharmacist Recipient: beneficiary Provider: plan sponsor pharmacist [facility] Follow[facility] Method of Contact: by telephone Cognitive Ability: good Allergies and Drug intolerance: No Known Allergies Medication Reconciliation Discrepancies (compared to [facility] med list) -none Specialty Pharmacy Refill Questionnaire Refill Questionnaire 02/15/2021 What is the name of the specialty medication you are refilling? Humira Are you taking any new medications? No Any new medical condition? No Any new allergies? No Any missed doses since your last fill? No Please explain - Any new side effects that are bothersome? Yes Please explain muscle pain and stiffness on side of injection. most bothersome in legs What date will you need this fill by? 02/22/2021 Adherence: Medication Adherence Patient reported X missed doses [...] by pharmacy Refills needed for supportive medications: not needed Pt understands no changes to current drug regimen were made at the appointment and that [facility] is providing recommendations (summary located at top of note) for provider review and follow up. Viridiana Lemus RPH 02/15/21 2:40 PM documented in this encounter Plan of Treatment Upcoming Encounters Date Type Department Care Team (Late st Contact Info) Description 02/01/2025 2:15 PM EDT Office Visit Dermatology at [facility] [address] [place] [address] Regina Rivas MD [facility] [place] [address] documented as of this encounter Visit Diagnoses Not on filedocumented in this encounter Care Teams Campaign Associate Relationship Specialty Start Date End Date Carolynn Wisdom APRN [address] [place] [address] PCP - General Family Medicine 03/08/20 documented as of this encounter
--- OUTSIDE RECORDS SUMMARY | 2024-01-17 18:06 | XMS_ITS | Encounter Summary ---
Author Organization [facility] [place] [address] Care Team Providers Care Relations Director Name Role Phone MelodieCarolynn judd CANDE Primary Care Provider Encounter Details Date Type Department Care Team (Late st Contact Info) Description 11/07/2021 8:30 AM EDT TH Visit (TeleHealth) Weight and Wellness at [address] [phone] Adult BMI 37.0-37.9 kg/sq m Social History Tobacco Use Types Packs/Day Years Used Date Smoking Tobacco: Former Smokeless Tobacco: Never Sex and Gender Information Value Date Recorded Sex Assigned at Not on file Gender Identity Not on file Sexual Orientation Not on file documented as of this encounter Patient Instructions * Patient Instructions* Yessy Jonas RD - 11/07/2021 8:55 AM EDT Nutrition Goals: Focus on meal planning - plan and prepare for meals; especially focus on dinner Establish meal routine - 9/10am breakfast, 1pm lunch, 6/7pm dinner; Choose protein first at every eating event Practice bariatric drinking behaviors - Separate eating and drinking by 30 minutes; increase water intake to 48-64 ounces per day; eliminate carbonation; documented in this encounter Progress Notes * Yessy Jonas RD - 11/07/2021 8:30 AM EDT Nutrition Intervention for Weight Management Initial RD visit with TAWANNA Jiménez 1960 Telehealth / telephone visit conducted while patient was at home at the following address: [address] [address] Weight Today: Wt Readings from Last 3 Encounters: 10/17/21 96.6 kg (213 lb) 09/05/21 99.7 kg (219 lb 12.8 oz) 08/08/21 99.8 kg (220 lb) BMI Readings from Last 3 Encounters: 10/17/21 37.14 kg/m?? 09/05/21 38.33 kg/m?? 08/08/21 38.97 kg/m?? 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 of time, tired; grocery store 1x in last two weeks Weight Loss History: See previous notes from this service writer and [facility] provider for full account Typical Dietary Intake: 3x/day 7am B: sip on smoothie shake - frozen fruit, milk, banana, protein powder OR 2-3 frozen strawberries, spinach, peanut butter powder, protein powder, banana, milk, 1/4 cup juice, 2tbsp yogurt - portuguese vanilla OR 16 oz smoothie Lunch - skipped 2pm S: grapes, cheese stick 6/7pm D: 2 pieces of pizza OR steak fries Typical Beverages: smoothie; 1x/day coffee - 1 tbsp half and half; seltzer - 1 soda stream bottle/day; water Appetite/Hunger: [x] feels managed with foods/meals outlined [...] ?? Continue to work with sleep at [facility] ?? Goal 7 hours of sleep nightly. [...] drinking by 30 minutes on either side; needs improvement after meals [x] Sip rather than gulp [] Reduce coffee intake down to ~1 cup (caffeine) prior to surgery [] Reduce alcohol, ideally avoid [] Currently smoking? [] Former smoker, quit date: (2 months nicotine-free prior to surgery) Activity: horseback riding; walking; taking dog out - 3x/week; [x] reviewed current goals [] updated goals Barriers to Change: none identified today; Nutrition Goals updated today: (1) meal planning (2) establish meal routine (3) bariatric drinking behaviors Monitor/Evaluate: [] Needs additional fuv scheduled with this service writer in No follow-ups on file. (OR) [x] Currently scheduled for: [x] 1st consecutive monthly nutrition visit [x] 2nd consecutive monthly nutrition visit [x] 3rd consecutive monthly nutrition visit (OR) [] Patient has met requirement of 3 consecutive monthly nutrition visits but agrees that ongoing support would be helpful and feasible. Above determined to the best ability of this service writer. Patient will contact bariatric surgery team [...] Dermatology at [facility] [address] [place] [address] Regina Rivas MD [facility] [place] [address] documented as of this encounter Goals Goal [...] Note: Continue to work with sleep at [facility] Goal 7 hours of sleep nightly. Recommend [...] On track(2021 11:38 AM EDT) Yessy Finn, MICKEY Note: Nutrition Goals: Establish consistent meal [...] adult documented in this encounter Care Teams Relations Director Relationship Specialty Start Date End Date Adjovu, Carolynn, ANALYTICS LEAD [address] [place] [address] PCP - General Family Medicine 03/08/20 documented as of this encounter
--- OUTSIDE RECORDS SUMMARY | 2024-01-17 18:06 | XMS_ITS | Encounter Summary ---
Author Organization [facility] [place] [address] Care Team Providers Care Business Process Engineer Name Role Phone Carolynn Wisdom APRN Primary Care Provider [phone] Reason for Referral * Diagnostic Test (Routine) - Closed Specialty Diagnoses / Procedures Referred By Bay t Referred To Contact Radiology Diagnoses Visit for screening mammogram Procedures Mammo Screening Cad and Jorge Bilateral Carolynn Wisdom APRN [address] [place] [address] [employer] [facility] [address] Referral ID Status Reason Start Date Expiration Date V isits Requested Visits Authorized [id number] Closed Specialty Service Requested 05/16/2021 11/13/2022 1 1 Reason for Visit * Diagnostic Test (Routine) - Closed Specialty Diagnoses / Procedures Referred By Bay mckeon Referred To Contact Radiology Diagnoses Visit for screening mammogram Procedures Mammo Screening Cad and Jorge Bilateral Carolynn Wisdom APRN [address] [place] [address] [employer] [place] [address] Referral ID Status Reason Start Date Expiration Date V isits Requested Visits Authorized [id number] Closed Specialty Service Requested 05/16/2021 11/13/2022 1 1 Encounter Details Date Type Department Care Team (Late st Contact Info) Description 05/22/2021 9:40 AM EST - 05/22/2021 11:59 PM EST Hospital Encounter Mammography/DXA at [facility] [place] [address] Carolynn Wisdom, PROGRAM CHECKER [address] [place] [address] Visit for screening mammogram Discharge Disposition: Home Social History Tobacco Use Types Packs/Day Years Used Date Smoking Tobacco: Former Smokeless Tobacco: Never Sex and Gender Information Value Date Recorded Sex Assigned at Not on file Gender Identity Not on file Sexual Orientation Not on file documented as of this encounter Medications at Time of Discharge Medication Sig Dispensed Refills Start Date End Date BLOOD SUGAR DIAGNOSTIC, DISC MISC by NOT APPLICABLE route. 020 lancets Misc by NOT APPLICABLE route. 03/18/2020 Blood-Glucose Meter Misc by NOT APPLICABLE route. 03/18/2020 levothyroxine (Synthroid) 50 mcg Tablet Take 50 mcg by mouth daily. 05/16/2021 metFORMIN (Glucophage) 500 mg Tablet Take 1,000 mg by mouth 2 times daily. 05/18/2021 rosuvastatin (Crestor) 5 mg Tablet Take 2.5 mg by mouth daily. 04/12/2021 ketoconazole (NIZORAL) 2 % CreamIndications:Inte rtrigo Apply [...] (LOTRIMIN) 1 % Cream Apply topically. 07/13/2020 Insulin [place], Disposable, 29 gauge Needle by NOT APPLICABLE route. 05/30/202005/2023 aspirin EC 81 mg Tablet, Delayed Release (E.C.) Take 81 mg by mouth daily. 07/19/2020 10/21/2022 Lantus Solostar U-100 Insulin pen 34 Units. Every evening 05/21/2021/08/2022 tacrolimus (Protopic) 0.1 % OintmentIndications:I nverse psoriasis Apply topically BID on weekends or as needed for flares 100 g 3 02/14/2021 08/07/2021 clobetasoL (TEMOVATE) 0.05 % SolutionIndications:I nverse psoriasis Apply topically to the scalp once daily for 2 weeks then take a week off and then repeat as needed 50 mL 02/14/2021 06/08/2021 clobetasoL (TEMOVATE) 0.05 % OintmentIndications:I nverse psoriasis Apply topically twice a day on weekends, avoid face. 60 g 12/16/2020 08/18/2021 Adalimumab (Humira Pen Xlss-Boxwyz-Jfyt HS) 40 mg/0.8 mL Pen Injector Kit Inject 80mg subcutaneously on day 1 followed by 40mg on day 8 and 40mg every 14 days thereafter. 1 kit 11/18/2020 08/07/2021 Humira Pen 40 mg/0.8 mL Pen Injector Kit Inject 0.8 mLs subcutaneously every 14 days. 1 kit 5 11/18/2020 08/07/2021 documented as of this encounter Plan of Treatment Upcoming Encounters Date Type Department Care Team (Late st Contact Info) Description 02/01/2025 2:15 PM EDT Office Visit Dermatology at [facility] [address] [place] [address] Regina Rivas MD [facility] [place] [address] documented as of this encounter Procedures Procedure Name Priority Date/Time Associated Diagnosis Comments MAMMO SCREENING CAD AND JORGE BILATERAL Routine 05/22/2021 10:00 AM EST Visit for screening mammogram documented in this encounter Results * Mammo Screening Cad and Jorge Bilateral (05/22/2021 10:00 AM EST) Anatomical Region Laterality Modality Breast Bilateral Mammography Narrative 05/22/2021 10:18 AM EST BILATERAL MAMMOGRAPHY REASON FOR EXAM: Screening [...] mammogram documented in this encounter Care Teams Business Process Engineer Relationship Specialty Start Date End Date Carolynn Wisdom APRN [address] [place] [address] PCP - General Family Medicine 03/08/20 documented as of this encounter
--- OUTSIDE RECORDS SUMMARY | 2024-01-17 18:06 | XMS_ITS | Encounter Summary ---
Author Organization [facility] [place] [address] Care Team Providers Care Metal Bed Assembler Name Role Phone Carolynn Wisdom DIE CAST SUPERVISOR Primary Care Provider Reason for Visit * Reason Comments Medication Management Encounter Details Date Type Department Care Team (Late st Contact Info) Description 07/31/2021 Specialty [place] [address] Daylin Alba RPH Social History Tobacco Use Types Packs/Day Years Used Date Smoking Tobacco: Former Smokeless Tobacco: Never Sex and Gender Information Value Date Recorded Sex Assigned at Not on file Gender Identity Not on file Sexual Orientation Not on file documented as of this encounter Progress Notes * Daylin Alba RPH - 07/31/2021 9:14 AM EST Specialty Pharmacy Consultation; Daylin Alba RPH Comprehensive Medication Management (CMM): Specialty Consult, Opt Out Melinda Goncalves Diagnosis: Psoriasis Therapy Start Date: 06/30/21 Contact in person or via telephone: Phone Ms. Melinda Goncalves is a 61 y.o. [...] the Clinical Assessment? No Summary and Recommendations: Melinda had no questions or concerns regarding Stelara and opted out of a follow up consult. She says that the injections have been going much better than with the Humira she was previously [facility] Economic Assessment: Patient is agreeable to medication copay: Yes Copay Amount: $5 Day Supply: 84 Date Needed: 07/28/21 Therapy Assessment: Appropriate Therapy: Yes Current Medication Dosing/Route/Frequency: Stelara 90mg/ml SOSY inject 1 syringe subq every 12 weeks Additional equipment/supplies required: no Care Plan Reviewed and Approved by Pharmacist : Yes Problem List: There is no problem list on file for this patient. Medications Reviewed: No Medications reconciled: No Allergies Reviewed:No Allergies reconciled: No Pharmacist follow-up needed: Yes Informed patient of specialty pharmacy services: Yes Welcome Packet and Rights and Responsibilities: Patient provided welcome packet/rights and responsibilities: Yes Date Confirmed: 11/23/20 Confirmation: Signature in [employer] -Patient is aware a licensed pharmacist is [...] review and follow up. Daylin Alba RPH 07/31/21 9:15 AM documented in this encounter Plan of Treatment Upcoming Encounters Date Type Department Care Team (Late st Contact Info) Description 02/01/2025 2:15 PM EDT Office Visit Dermatology at [facility] [address] [place] [phone] Regina Rivas MD [facility] [place] [address] documented as of this encounter Visit Diagnoses Not on filedocumented in this encounter Care Teams Metal Bed Assembler Relationship Specialty Start Date End Date Carolynn Wisdom APRN [address] [place] [address] PCP - General Family Medicine 03/08/20 documented as of this encounter
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
--- OUTSIDE RECORDS SUMMARY | 2024-01-17 18:06 | XMS_ITS | Encounter Summary ---
Author Organization [facility] [place] [address] Care Team Providers Care Groundskeeper Name Role Phone MelodieCarolynn judd SOUND ENGINEER Primary Care Provider Encounter Details Date Type Department Care Team (Late st Contact Info) Description 12/21/2021 Telephone General Surgery at [facility] [place] [phone] Anitha Cruz Social History Tobacco Use Types Packs/Day Years Used Date Smoking Tobacco: Former Smokeless Tobacco: Never Sex and Gender Information Value Date Recorded Sex Assigned at Not on file Gender Identity Not on file Sexual Orientation Not on file documented as of this encounter Miscellaneous Notes * Telephone Encounter - Anitha Cruz - 12/21/2021 11:44 AM EDT Melinda called to find out how she can go about having us sending a pre-auth to her insurance so that she can just come to [facility] for a sleep study as her insurance wont pay for the actual study to be done and she needs to finish this up. I advised that her sleep consultation was done at an outside facility and that she needed to contact that facility to discuss again with them the results ofthe consult. If during the consultation they found she did not meet the criteria for suspicion of sleep apnea then the insurance in fact would not pay for a study. The patient is not sure what the results were from the consult. I strongly urged her to call the sleep center she chose to use and findout what the issue is. I told her that she could have the initial consult sent to us and we could see what they recommended. She can't get a study approved with her insurance if there is no medical necessity behind having it done. documented in this encounter Plan of Treatment Upcoming Encounters Date Type Department Care Team (Late st Contact Info) Description 02/01/2025 2:15 PM EDT Office Visit Dermatology at [facility] [address] [place] [address] Regina Rivas MD [facility] DR [place] [address] documented as of this encounter Goals Goal [...] sleep time movement Lifestyle No Michelle Jaquez, SOUND ENGINEER Note: Exercise goal is 150 -300 [...] on filedocumented in this encounter Care Teams Groundskeeper Relationship Specialty Start Date End Date Carolynn Wisdom APRN [address] [place] [address] PCP - General Family Medicine 03/08/20 documented as of this encounter
--- OUTSIDE RECORDS SUMMARY | 2024-01-17 18:06 | XMS_ITS | Encounter Summary ---
Author Organization Pending [facility] To [facility] Address [facility] [place] [address] Care Team Providers Care Barrel Assembly Inspector Name Role Phone Carolynn Wisdom APRN Primary Care Provider Encounter Details Date Type Department Care Team (Late st Contact Info) Description 06/08/2021 Refill Dermatology at [facility] [address] [place] [phone] Lisa Vasquez MD [facility] [place] [address] Inverse psoriasis Social History Tobacco Use Types [...] 2:15 PM EDT Office Visit Dermatology at [facility] [address] [place] [phone] Regina Rivas MD [facility] [place] [address] documented as of this encounter Visit Diagnoses Diagnosis Inverse psoriasis Other psoriasis documented in this encounter Care Teams Barrel Assembly Inspector Relationship Specialty Start Date End Date Carolynn Wisdom APRN [address] [place] [address] [place] [address] PCP - General Family Medicine 03/08/20 documented as of this encounter
--- OUTSIDE RECORDS SUMMARY | 2024-01-17 18:06 | XMS_ITS | Encounter Summary ---
Author Organization [facility] [place] [address] Care Team Providers Care Bilingual Branch Manager Name Role Phone Carolynn Wisdom APRN Primary Care Provider Reason for Visit * Reason Comments Medication Management Specialty Refill Management Encounter Details Date Type Department Care Team (Late st Contact Info) Description 01/17/2021 Specialty [place] [address] Oscar Mariano, [facility] Social History Tobacco Use Types Packs/Day Years Used Date Smoking Tobacco: Former Smokeless Tobacco: Never Sex and Gender Information Value Date Recorded Sex Assigned at Not on file Gender Identity Not on file Sexual Orientation Not on file documented as of this encounter Progress Notes * Oscar Mariano [facility] - 01/17/2021 8:42 AM EDT Clinical Management Plan: Refill Specialty Pharmacy Consultation; Oscar Mariano [facility] Comprehensive Medication Management (CMM) Melinda Goncalves is [...] beneficiary Provider: plan sponsor pharmacist Visit Type: [facility] Follow-up Method of Contact: by telephone Cognitive Ability: good Allergies and Drug intolerance: No Known Allergies Medication Reconciliation Discrepancies (compared to [facility] med list) -none Specialty Pharmacy Refill Questionnaire Refill Questionnaire 01/17/2021 What is the name of the specialty medication you are refilling? Humira Are you taking any new medications? No Any new medical condition? No Any new allergies? No Any missed doses since your last fill? Yes Please explain 1 Any new side effects that are bothersome? Yes Please explain mild muscle pain What date will you need this fill by? 01/25/2021 Adherence: Medication Adherence What concerns does the patient have in regards to their medications: 1 delayed dose Patient reported X missed doses in the last month: 1 Any gaps in refill history greater than [...] Refills needed for supportive medications: not needed Patient will have one delayed dose. Also experiencing some mild muscle pain. She will report any changes. Pt understands no changes to current drug regimen were made at the appointment and that [facility] is providing recommendations (summary located at top of note) for provider review and follow up. Oscar Mariano RPH 01/17/21 8:44 AM documented in this encounter Plan of Treatment Upcoming Encounters Date Type Department Care Team (Late st Contact Info) Description 02/01/2025 2:15 PM EDT Office Visit Dermatology at [facility] [address] [place] [id number] Regina Rivas MD [facility] [place] [address] documented as of this encounter Visit Diagnoses Not on filedocumented in this encounter Care Teams Bilingual Branch Manager Relationship Specialty Start Date End Date Carolynn Wisdom APRN [address] [place] [address] PCP - General Family Medicine 03/08/20 documented as of this encounter
--- OUTSIDE RECORDS SUMMARY | 2024-01-17 18:06 | XMS_ITS | Encounter Summary ---
Author Organization [facility] Address [facility] [place] [address] Care Team Providers Care Payroll Processor Name Role Phone Carolynn Wisdom APRN Primary Care Provider Encounter Details Date Type Department Care Team (Late st Contact Info) Description 06/08/2021 Refill Dermatology at [facility] [address] [place] [phone] Lisa Vasquez MD [facility] [address] [place] [address] Inverse psoriasis Social History Tobacco Use Types [...] 2:15 PM EDT Office Visit Dermatology at [facility] [address] [place] [phone] Regina Rivas MD [facility] [address] [place] [address] documented as of this encounter Visit Diagnoses Diagnosis Inverse psoriasis Other psoriasis documented in this encounter Care Teams Payroll Processor Relationship Specialty Start Date End Date Carolynn Wisdom APRN [address] [place] [address] [place] [address] PCP - General Family Medicine 03/08/20 documented as of this encounter
--- OUTSIDE RECORDS SUMMARY | 2024-01-17 18:06 | XMS_ITS | Encounter Summary ---
Author Organization [facility] [place] [address] Care Team Providers Care Division Plant Engineer Name Role Phone Carolynn Wisdom APRN Primary Care Provider Reason for Visit * Reason Comments Specialty Pharmacy Review Encounter Details Date Type Department Care Team (Late st Contact Info) Description 06/19/2021 Specialty [place] [address] Jean Slaughter, [facility] Social History Tobacco Use Types Packs/Day Years Used Date Smoking Tobacco: Former Smokeless Tobacco: Never Sex and Gender Information Value Date Recorded Sex Assigned at Not on file Gender Identity Not on file Sexual Orientation Not on file documented as of this encounter Progress Notes * Jean Slaughter - 06/19/2021 11:59 PM EST The [facility] has completed a benefits investigation for Melinda Goncalves to review their eligibility to fill at [facility]. Per patient's medication list they are prescribed STELARA 90 MG/ML and the medication is currently filled at the [facility]. documented in this encounter Plan of Treatment Upcoming Encounters Date Type Department Care Team (Late st Contact Info) Description 02/01/2025 2:15 PM EDT Office Visit Dermatology at [facility] [address] [place] [address] Regina Rivas MD [facility] [place] [address] documented as of this encounter Visit Diagnoses Not on filedocumented in this encounter Care Teams Division Plant Engineer Relationship Specialty Start Date End Date ReginaldomarcusKrystalCarolynnCANDE vega [address] [place] [address] PCP - General Family Medicine 03/08/20 documented as of this encounter
--- OUTSIDE RECORDS SUMMARY | 2024-01-17 18:07 | XMS_ITS | Encounter Summary ---
Author Organization [facility] Address [address] [place] [address] Care Team Providers Care Receptionist Scheduler Name Role Phone Unavailable Primary Care Provider Unavailabl e Encounter Details Date Type Department Care Team (Late st Contact Info) Description 03/10/2020 Lab Requisition [facility] Pathology & Laboratory Medicine - [facility] [address] [place] [address] Outr Resulting Lab, Provider Social History Tobacco Use Types Packs/Day Years Used Date Smoking Tobacco: Never Assessed Sex and Gender Information Value Date Recorded Sex Assigned at Not on file Gender Identity Not on file Sexual Orientation Not on file documented as of this encounter Plan of Treatment Not on file documented as of this encounter Procedures Procedure Name Priority Date/Time Associated Diagnosis Comments THYROID ANTIBODIES Routine 03/10/2020 8:06 EDT documented in this encounter Results * (ABNORMAL) THYROID ANTIBODIES (03/10/2020 8:06 EDT) Anti-Thyroglobulin 53 <=60 U/mL 2019 18:35 EDT [facility] Thyroperoxidase Ab 918(H) <=60 U/mL 2019 18:35 EDT [facility] Blood VENOUS BLOOD / Unknown 03/10/2020 8:06 EDT 03/10/2020 17:02 EDT Provider Outr Resulting Lab CHEMISTRY & BLOOD GAS ORDERABLES [facility] [address] [place] [address] documented in this encounter Visit Diagnoses Not on filedocumented in this encounter
--- OUTSIDE RECORDS SUMMARY | 2024-01-17 18:07 | XMS_ITS | Referral Summary ---
Author Organization [facility] Address [address] [place] [address] Care Team Providers Care Product Picker Name Role Phone Unavailable Primary Care Provider Unavailabl e Social History Tobacco Use Types Packs/Day Years Used Date Smoking Tobacco: Never Assessed Interpersonal Safety Answer Date Record ed Physically Hurt Never 05/24/2020 Verbally Threaten Not on file 05/24/2020 Sex and Gender Information Value Date Recorded Sex Assigned at Not on file Gender Identity Not on file Sexual Orientation Not on file Plan of Treatment Not on file
--- OUTSIDE RECORDS SUMMARY | 2024-01-17 18:07 | XMS_ITS | Encounter Summary ---
Author Organization [facility] [place] [address] Care Team Providers Care Bed Laborer Name Role Phone Lida Acevedo Cindy CASTELLON Primary Care Provider [phone] Encounter Details Date Type Department Care Team (Late st Contact Info) Description 12/23/2014 9:30 AM EDT - 12/23/2014 11:59 PM EDT Hospital [place] [address] CLINIC, Ryan Soni, DO [address] [place], [place] [address] Abnormal mammogram, unspecified Discharge Disposition: Home Social History Tobacco Use [...] [facility] [address] [place] [address] Regina Rivas MD [facility] [place] [address] documented as of this encounter Procedures Procedure Name Priority Date/Time Associated Diagnosis Comments MAMMO CALL BACK DIAGNOSTIC EXTRA VIEW UNILATERAL Routine 12/23/2014 10:16 AM EDT Abnormal mammogram, unspecified documented in this encounter Results * Mammo call back diagnostic extra view unilateral (12/23/2014 10:16 AM EDT) Anatomical Region Laterality Modality Breast N/A Mammography 12/23/2014 10:1 6 AM EDT Impressions 12/23/2014 10:28 AM EDT IMPRESSION: Right breast: BI-RADS 1, negative. Recommendations: Annual screening mammography, next imaging November 2015. Narrative 12/23/2014 10:28 AM EDT EXAMINATION: CALL BACK DX EXTRA VIEW UNILAT/RIGHT CLINICAL HISTORY: Abnormal Screening. 54-year-old female. She presents for additional diagnostic workup of the right breast. TECHNIQUE: Right breast MLO, true lateral, CC 2-D/3-D imaging. Digital mammography with direct image capture. Tomographic imaging was obtained. COMPARISON: 12/13/2014, 09/23/2006, 09/10/2006, 08/30/2005, 09/21/2004. FINDINGS: Density, scattered densities. The areas of concern on screening mammography for distortion do not persist on additional diagnostic imaging. No current evidence of suspicious micro-calcifications, distortion or mass. Procedure Note Delonte Dozier MD - 12/23/2014 EXAMINATION: CALL BACK DX EXTRA VIEW UNILAT/RIGHT CLINICAL HISTORY: Abnormal Screening. 54-year-old female. She presentsfor additional diagnostic workup of the right breast. TECHNIQUE: Right breast MLO, true lateral, CC 2-D/3-D imaging. Digital mammography with direct image capture. Tomographic imaging was obtained. COMPARISON: 12/13/2014, 09/23/2006, 09/10/2006, 08/30/2005, 09/21/2004. FINDINGS: Density, scattered densities. The areas of concern on screening mammography for distortion do notpersist on additional diagnostic imaging. No current evidence of suspicious micro-calcifications, distortion or mass. IMPRESSION IMPRESSION: Right breast: BI-RADS 1, negative. Recommendations: Annual screening mammography, next imaging November 2015. Hina Delgado MD IMG MAMM O ORDERABLES documented in this encounter Visit Diagnoses Diagnosis Abnormal mammogram, unspecified documented in this encounter Care Teams Bed Laborer Relationship Specialty Start Date End Date Lida Acevedo APRN PCP - General 12/13/14 03/07/20 documented as of this encounter
--- OUTSIDE RECORDS SUMMARY | 2024-01-17 18:07 | XMS_ITS | Encounter Summary ---
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 Name Role Phone Carolynn Wisdom APRN Primary Care Provider [phone] Reason for Visit * Consultation (Routine) - Closed Specialty Diagnoses / Procedures Referred By Bay mckeon Referred To Contact Dermatology Diagnoses Erythema intertrigo Carolynn Wisdom APRN [address] [place] [address] [facility] Dermatology [address] [place] [address] Referral ID Status Reason Start Date Expiration Date V isits Requested Visits Authorized [id number] Closed Consult, Test & Treat Connection Center PCP Updated and/or Approved 10/28/2020 10/28/2021 6 6 Encounter Details Date Type Department Care Team (Late st Contact Info) Description 11/16/2020 9:40 AM EDT Office Visit Dermatology at [facility] [address] [place] [address] Lisa Vasquez MD [facility] [place] [address] Inverse psoriasis; High risk medication use; Neoplasm of uncertain behavior of skin Social History Tobacco Use Types Packs/Day Years Used Date Smoking Tobacco: Former Smokeless Tobacco: Never Sex and Gender Information Value Date Recorded Sex Assigned at Not on file Gender Identity Not on file Sexual Orientation Not on file documented as of this encounter Progress Notes * Lisa Vasquez - 11/16/2020 9:40 AM EDT Images from the original note were not included. DEPARTMENT OF DERMATOLOGY Medical Dermatology Clinic Provider: Lisa Vasquez MD Patient's preferred name Melinda Patient's preferred pronouns She/Her/Hers Preferred contact method for results [] myDH [] Letter [] Phone: cell Detailed phone message OK? Yes Are there any other people with whom we may discuss your care? Yes, mother PAST MEDICAL HISTORY Y/N Date, location, treatment Melanoma N Dysplastic nevi N SCC N BCC N AKs N Blistering sunburns or tanning bed use Y Other relevant past medical history (i.e. 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 No History of Present Illness: Melinda Goncalves is a 60 y.o. Patient is referred in consultation at [facility] for erythema intertrigo. Patient reports of scaling on the scalp. Severerash in the groin area, belly button, below the breasts. Patient has had this rash for roughly three years. Patient currently on a course of Fluconazole which helped a bit but not enough for satisfaction. Patient reports of pain and severe itching. She has also tried topical clotrimazole and triamcinolone with no improvement. Medications: Reviewed in eD-H Allergies: Reviewed in eD-H Skin Examination: Full skin examination: Patient asked to undress to their comfort level. Verbalized that the provider???s preference is that the patient remove all clothing and that the provider will not examine areas patient elects to keep covered. Patient elects to keep underwear on and have the following examined: scalp, hair, head, face, ears, neck, chest, axillae, abdomen, back, buttocks, and upper and lowerextremities. Genitalia and buttocks were not examined. Assessment/Plan Inverse Psoriasis - In groin, genitals, bilateral axillae and under bilateral breasts are well-demarcated bright pink shiny plaques with slight overlying scale. Erythematous plaques in scalp and conchal bowls. BSA: ~12% -Discussed underlying etiology with patient, discussed this is not intertrigo but rather favor psoriasis. Given initial diagnosis and presentation, joint decision to proceed with punch biopsy today to ascertain diagnosis -Treatment options discussed including topical therapy and systemic medication. Given extent of involvement, joint decision to proceed with systemic medicaiton -Pt has agreed to start Humira. -risk and benefits of the medication were discussed. Pt denies hx of exposure to TB, hx. of Hepatitis B or C infection, liver cirrhosis or lymphoma -Will obtain baseline CBC, CMP, Hepatitis C Ab, Hepatitis B Ag and Quantiferion gold. -Pharmacy has met with patient to discuss starting Humira -Will awaiting Humira start, will send Rx: Calcipotriene 0.005% cream apply to affected areas BID during the week -Start Rx: Clobetasol 0.05% ointment use BID on weekends. Discussed risk of prolonged steroid use including skin atrophy, instructed to avoid face -Instructed to d/c fluconazole, triamcinolone and clotrimazole at this time Procedure: Skin biopsy by punch technique. Right lower abdomen well-demarcated erythematous plaque,DDX inverse psoriasis vs tinea vs CTCL vs other Location: Right lower abdomen Discussed indications for the procedure and expectations including risks and benefits. Verbal consent obtained. Skin prep with alcohol. Local anesthesia: 1% lidocaine with 1/100,000 epinephrine. A 4 mm punch biopsy to the level of the subcutis was performed. Wound closed with monofilament suture. There were no complications; the patient tolerated the procedure well. The wound was dressed. Post-procedure expectations (including discomfort management), wound care and activity restrictions were reviewed. Follow-up based on pathology results. Suture removal: 14 days, pt will do closer to home Photo was taken and charted with patient's verbal consent. Other items to document in the assessment/plan if relevant N/A RTC: Return in about 3 months (around 02/16/2021). Recall placed Scribe attestation: ISAI Gutierrez has performed the documentation for this encounter in thepresence of and acting as a scribe for Lisa Vasquez MD I performed the above scribed service and agree with the accuracy of the documentation in this encounter. Reviewed and signed by: Lisa Vasquez MD Dermatology [facility] Patient seen and evaluated with staff youth counselor: Emmy Nava MD Department of Dermatology [facility] * Emmy Nava MD - 11/16/2020 9:40 AM EDT I directly supervised Dr. Vasquez during this office visit. Dr. Vasquez presented the history and physical exam to me. I, then, saw and examined this patient with Dr. Vasquez . We reviewed the history and pertinent details and I confirmed the physical findings. I agree with the details of the history and physical exam as documented in Dr. Vasquez's note. Emmy Nava MD Staff Physician documented in this encounter Plan of Treatment Upcoming Encounters Date Type Department Care Team (Late st Contact Info) Description 02/01/2025 2:15 PM EDT Office Visit Dermatology at [facility] [address] [place] [address] Regina Rivas MD [facility] [place] [address] documented as of this encounter Procedures Procedure Name Priority Date/Time Associated Diagnosis Comments SURGICAL PATHOLOGY REPORT Routine 11/16/2020 1:49 PM EDT SPECIMEN TO PATHOLOGY Routine 11/16/2020 1:49 PM EDT Neoplasm of uncertain behavior of skin HC QUANTIFERON Routine 11/16/2020 11:11 AM EDT High risk medication use HEMOGRAM Routine 11/16/2020 11:11 AM EDT High risk medication use DIFFERENTIAL, AUTOMATED Routine 11/16/2020 11:11 AM EDT High risk medication use HC HEPATITIS C ANTIBODY Routine 11/16/2020 11:11 AM EDT High risk medication use HC HEPATITIS B CORE AB Routine 11/16/2020 11:11 AM EDT High risk medication use HC HEPATITIS B SURFACE AB Routine 11/16/2020 11:11 AM EDT High risk medication use HC HEPATITIS B SURFACE AG Routine 11/16/2020 11:11 AM EDT High risk medication use HC CBC,PLT & AUTO DIFF Routine 11/16/2020 11:11 AM EDT High risk medication use HC VENIPUNCTURE Routine 11/16/2020 11:11 AM EDT High risk medication use documented in this encounter Results * Surgical Pathology Report (11/16/2020 1:49 PM EDT) Pathologist [facility] Surgical Pathology Report [id number] ? Location: [facility] The signing pathologist has (i) examined the relevant preparation(s) for the specimen(s) and (ii) rendered or confirmed the diagnosis(es). . ?Surgical Pathology DIAGNOSIS Right lower abdomen, skin punch biopsy: - Psoriasiform dermatitis (see discussion) Electronically signed by: ?Guille Coleman MD Verified: ??11/28/2020 17:43 ??Dermatopathologist Performed at: ??-[facility] Dept. of Pathology, [place], [place] DISCUSSION Overall, the findings are compatible with psoriasis. The pure histologic differential can include a psoriasiform drug eruption. There are features such as rare scattered eosinophils, somewhat more commonly associated with psoriasiform drug eruptions than with psoriasis. A drug eruption is not favored. But, importantly, absolute distinction between the two is best achieved clinically. Findings diagnostic of cutaneous T cell lymphoma (CTCL) or superficial fungal infection are not seen in the sections examined. MICROSCOPIC DESCRIPTION Examination of multiple levels of the biopsy reveals confluent parakeratosis with staggered neutrophilic microabscesses overlying hypogranulosis, subtle spongiosis, and regular acanthosis. The suprapapillary plates are subtly thinned. The papillary dermis has dilated capillaries, some of which abut the overlying basement membrane. Some extravasated erythrocytes are noted. The superficial reticular dermis has a moderately dense perivascular lymphohistiocytic infiltrate. Rare scattered eosinophils are noted. ?? Fungal microorganisms are not identified, as confirmed by interpretation of a PAS stain. ADDITIONAL STUDIES Fungal microorganisms are not identified, as confirmed by interpretation of a PAS stain. SPECIMEN(S) SUBMITTED A - Right lower abdomen, skin punch (1) CLINICAL INFORMATION Well demarcated erythematous plaque with slight scale on right lower abdomen DDX inverse psoriasis versus tinea versus CTCL versus other SPECIMEN PROCESSING A - Labeled/Fixative: Patient demographics, formalin. Quantity/Size: ??Single, 0.4 cm. Tissue Description: Handy pink scaly skin punch excised to a depth of approximately 0.4 cm. Sections/Processing: Inked, bisected and entirely submitted in 1 cassette labeled A1. ??MLL [facility] 11/16/2020 1:49 PM EDT Lisa Vasquez MD PATHOLOGY/CYTOLOGY ORDERABLES [facility] [place] [address] * Specimen to Pathology (11/16/2020 1:49 PM EDT) AP Specimen 11/16/2020 1:49 PM EDT 11/16/2020 1:49 PM EDT Narrative [facility] - 11/16/2020 1:49 PM EDT Specimen requisition ordered. ??Separate Pathology report to follow Emmy Nava MD PATHOLOGY/[place] [address] * Differential, Automated (11/16/2020 11:11 AM EDT) Neutrophils % 62.5 % [facility] Neutr Abs (ANC) 5.38 1.70 - 6.10 x10(3)/[facility] Lymphocytes % 27.5 % [facility] Lymphocytes Abs 2.4 0.9 - 3.2 x10(3)/[facility] Monocytes % 5.7 % [facility] Monocyte Abs 0.5 0.3 - 0.9 x10(3)/[facility] Eosinophils % 2.8 % [facility] Eosinophils Abs 0.2 0.0 - 0.4 x10(3)/[facility] Basophils % 1.3 % [facility] Basophils Abs 0.1 0.0 - 0.1 x10(3)/[facility] Immature Gran % 0.20 % [facility] Comment: Immature granulocytes(IG's)percentage and absolute count will include metamyelocytes, myelocytes, and promyelocytes. Blood smears from CBCs yielding IG's will be scanned manually for concordance. If this scan disagrees with the automated IG or if promyelocytes are noted, a manual differential will be performed. Micki Gran Abs 0.02 0.00 - 0.04 x10(3)/[facility] Blood 11/16/2020 11:1 1 AM EDT 11/16/2020 12:46 PM EDT Narrative Resulting Agency Comment Spec In Lab Lisa Vasquez MD HEMATOLOGY ORDERAB LES [facility] [place] [address] * Hemogram (11/16/2020 11:11 AM EDT) [facility] WBC 8.6 4.0 - 9.5 x10(3)/[facility] RBC 4.54 4.00 - 5.21 x10(6)/[facility] Hemoglobin 13.2 11.7 - 15.5 gm/dL [facility] Hematocrit 39.7 35.7 - 45.8 % [facility] MCV 87.4 82.6 - 94.4 [facility] MCH 29.1 27.1 - 32.0 pg [facility] MCHC 33.2 31.7 - 35.0 gm/dL [facility] Platelets 277 145 - 357 x10(3)/[facility] RDWSD 41.3 37.0 - 46.0 [facility] RDWCV 13.1 11.5 - 14.1 % [facility] MPV 11.1 7.6 - 12.9 [facility] nRBC % Auto 0.0 % [facility] nRBC Abs Auto 0.000 0.000 - 0.000 x10(3)/[facility] Blood 11/16/2020 11:1 1 AM EDT 11/16/2020 12:46 PM EDT Narrative Resulting Agency Comment Spec In Lab Lisa Vasquez MD HEMATOLOGY ORDERAB LES [facility] [place] [address] * Comprehensive metabolic panel (non-fasting) (11/16/2020 11:11 AM EDT) [facility] Glucose Lvl 165 65 - 199 mg/dL [facility] Comment:Diabetes: >=200 mg/d L plus symptoms BUN 14 8 - 18 mg/dL [facility] Creatinine 0.77 0.70 - 1.20 mg/dL [facility] Sodium 140 135 - 145 mmol/L [facility] Potassium 4.1 3.5 - 5.0 mmol/L [facility] Comment: Please note: ??Patients with WBC >100,000 may have falsely elevated Potassium levels. ??For accurate Potassium quantification in these patients send serum separator tube (gold top) for subsequent determinations. ??Contact the Clinical Chemistry Laboratory if there are any questions. Chloride 104 98 - 107 mmol/L [facility] CO2 25 22 - 31 mmol/L [facility] Anion Gap 11 5 - 15 mmol/L [facility] Calcium 9.4 8.5 - 10.5 mg/dL [facility] Total Protein 7.1 6.1 - 8.0 gm/dL [facility] Albumin 4.1 3.2 - 5.2 gm/dL [facility] AST 17 0 - 30 unit/L [facility] ALT 15 0 - 30 unit/L [facility] Alk Phos 70 35 - 105 unit/L [facility] Total Bilirubin 0.5 0.2 - 1.3 mg/dL [facility] Estimated GFR 85 >=60 mL/min/1. 73 m?? [facility] Comment: This patient? s estimated glomerular filtration rate (eGFR) is between 85 mL/min/1.73 m2 (patients with less muscle mass) and 98 mL/min/1.73 m2 (patients with more muscle mass) [...] and symptoms in addition to eGFR. Blood 11/16/2020 11:1 1 AM EDT 11/16/2020 12:54 PM EDT Narrative Resulting Agency Comment Spec In Lab Emmy Nava MD CHEMISTRY ORDERAB LES Performing Organization Address [facility] Co de Phone Number [facility] [place] [address] * Hepatitis B Core Antibody, Total (11/16/2020 11:11 AM EDT) Hep B Core Ab Negative Negative [facility] Blood 11/16/2020 11:1 1 AM EDT 11/16/2020 12:49 PM EDT Narrative Resulting Agency Comment Spec In Lab Emmy Nava MD CHEMISTRY ORDERAB LES Performing Organization Address [facility] Co de Phone Number [facility] [place] [address] * Hepatitis B Surface Antibody (11/16/2020 11:11 AM EDT) HepB Surface Ab Quant <3.5 IU/L [facility] Comment: HepB Surface Ab Quant: Unvaccinated: < 8.5 IU/L Vaccinated: > 11.5 IU/L HepB Surface Ab Negative [facility] Comment: Patient is presumed to be not vaccinated or immune to HBV infection. Expected Results: Vaccinated: Positive Unvaccinated: Negative Blood 11/16/2020 11:1 1 AM EDT 11/16/2020 12:49 PM EDT Narrative Resulting Agency Comment Spec In Lab Emmy Nava MD IMMUNOLOGY ORDERA BLES Performing Organization Address [facility] Co de Phone Number [facility] [place] [address] * Hepatitis B Surface Antigen (11/16/2020 11:11 AM EDT) HepB Surface Ag Negative Negative [facility] Blood 11/16/2020 11:1 1 AM EDT 11/16/2020 12:49 PM EDT Narrative Resulting Agency Comment Spec In Lab Emmy Nava MD CHEMISTRY ORDERAB LES [facility] [place] [address] * QuantiFERON-TB Gold (11/16/2020 11:11 AM EDT) QFT Nil 0.020 IU/mL [facility] QFT TB Ag1-Nil 0.000 IU/mL [facility] QFT TB Ag2-Nil 0.000 IU/mL [facility] QFT Mitogen-Nil 8.160 IU/mL [facility] Quantiferon TB Negative Negative [facility] Quantiferon TB Interp M. tuberculosis infection NOT likely A negative specimen should have a TB1 Ag minus Nil value and TB2 Ag minus Nil value of less than 0.35 IU/mL OR a TB1 Ag minus Nil or TB2 Ag minus Nil value greater than or equal to 0.35 IU/mL AND a TB Ag minus Nil value from the same tube of less than 25% of the Nil value. A negative specimen must also have a mitogen minus Nil value greater than or equal to 0.5 IU/mL. A negative QFT-Plus result does not preclude the possibility of M. tuberculosis infection. False negative results can occur due to stage of infection (specimen obtained prior to the development of immune response), co-morbid conditions which affect immune function, or other immunological factors. [facility] Comment: The performance of the QFT-Plus assay has not been extensively evaluated with specimens from the following individuals: Individuals who have impaired or altered immune functions, such as those who have HIV infection or AIDS, those who have transplantation managed with immunosuppressive treatment or others who receive immunosuppressive drugs (e.g., corticosteroids, methotrexate, azathioprine, cancer chemotherapy), those who have other clinical conditions, such as diabetes, silicosis, chronic renal failure, and hematological disorders (e.g., leukemia and lymphomas), or those with other specific malignancies (e.g., carcinoma of the head or neck and lung). Individuals younger than age 17 years women. Diagnosis of, or the exclusion of tuberculosis disease, and assessment of Latent Tuberculosis Infection (LTBI) requires a combination of epidemiological, historical, Medical and diagnostic findings that should be taken into account when interpreting QFT-Plus results. Blood 11/16/2020 11:1 1 AM EDT 11/17/2020 7:17 AM EDT Narrative Resulting Agency Comment Spec In Lab Emmy Nava MD CHEMISTRY ORDERAB LES Performing Organization Address City/[facility]/ZIP Co de Phone Number [facility] [place] [address] * Hepatitis C Antibody (11/16/2020 11:11 AM EDT) Hepatitis C Ab Negative Negative [facility] Blood 11/16/2020 11:1 1 AM EDT 11/16/2020 12:49 PM EDT Narrative Resulting Agency Comment Spec In Lab Emmy Nava MD IMMUNOLOGY ORDERA BLES Performing Organization Address [facility] Co de Phone Number [facility] [place] [address] documented in this encounter Visit Diagnoses Diagnosis Inverse psoriasis Other psoriasis High risk medication use Encounter for long-term (current) use of other medications Neoplasm of uncertain behavior of skin documented in this encounter 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
--- OUTSIDE RECORDS SUMMARY | 2024-01-17 18:07 | XMS_ITS | Encounter Summary ---
Author Organization [facility] [place] [address] Care Team Providers Care Online Program Coordinator Name Role Phone MelodieCarolynn judd APRN Primary Care Provider Encounter Details Date Type Department Care Team (Late st Contact Info) Description 07/15/2020 9:15 PM EST Ancillary Procedure [place] [address] Carolynn Wisdom APRN [address] [place], [place] [address] Social History Tobacco Use Types Packs/Day Years [...] PM EDT Office Visit Dermatology at [facility] [address] [place] [address] Regina Rivas MD [facility] [place] [address] documented as of this encounter Procedures Procedure Name Priority Date/Time Associated Diagnosis Comments FILM LIBRARY STORAGE ONLY CT HEAD AND SPINE Routine 07/15/2020 9:13 PM EST documented in this encounter Results * Film Library- Storage Only CT Head And Spine (07/15/2020 9:13 PM EST) Narrative [facility] - 07/15/2020 9:13 PM EST This exam is auto-finalizing. It's purpose is for storage only. Carolynn Wisdom APRN IMG FILM LIBRARY OR DERABLES Performing Organization Address City/State/[facility] Co de Phone Number [place], [place] documented in this encounter Visit Diagnoses Not on filedocumented in this encounter Care Teams Online Program Coordinator Relationship Specialty Start Date End Date Carolynn Wisdom APRN [address] [place] [address] PCP - General Family Medicine 03/08/20 documented as of this encounter
--- OUTSIDE RECORDS SUMMARY | 2024-01-17 18:07 | XMS_ITS | Encounter Summary ---
Author Organization [facility] [place] [address] Care Team Providers Care Cream Gatherer Name Role Phone Lida Acevedo APRN Primary Care Provider [phone] Encounter Details Date Type Department Care Team (Latest Contact Info) Description 12/13/2014 8:42 AM EDT - 12/13/2014 11:59 PM EDT Hospital Encounter [place] [address] CLINIC, Lida [place]ellin, CANDE [address] [place] [address] Discharge Disposition: Home Social History Tobacco Use [...] [facility] [address] [place] [address] Regina Rivas MD [facility] [place] [address] documented as of this encounter Procedures Procedure Name Priority Date/Time Associated Diagnosis Comments MAMMO SCREENING CAD BILATERAL Routine 12/13/2014 9:03 AM EDT documented in this encounter Results * Mammo digital bilateral Screening with CAD (12/13/2014 9:03 AM EDT) Anatomical Region Laterality Modality Breast Bilateral Mammography 12/13/2014 9:03 AM EDT Narrative 12/16/2014 1:44 PM EDT REASON FOR EXAM: Screening ?? TECHNIQUE: Cranio-caudal (CC) and mediolateral oblique (MLO) views of the both breasts obtained with direct digital capture. The exam was evaluated by CAD Version 8.3.17. ?? RIGHT BREAST MAMMOGRAPHY ?? This is an indeterminate (ACR Category 0) mammogram of the Right breast. There is an area of architectural distortion in the Right breast, requiring additional imaging. ? LEFT BREAST MAMMOGRAPHY ?? This is a negative mammogram (ACR Category 1). There is a stable fibroglandular pattern without significant change as compared to prior studies. There is no mammographic evidence of cancer. ? The breasts are of scattered density. ? CONCLUSION ?? ASSESSMENT IS INCOMPLETE: Additional imaging recommended (ACR Category 0) of the Right breast. The [facility] will contact the patient to schedule additional imaging. ?? The contralateral breast is NEGATIVE (ACR Category 1). Routine screening mammography is recommended of the Left breast with the frequency dependent on the patient's age and breast cancer risk factors. Procedure Note Hina Bustamante MD - 12/16/2014 REASON FOR EXAM: Screening TECHNIQUE: Cranio-caudal (CC) and mediolateral oblique (MLO) views of theboth breasts obtained with direct digital capture. The exam was evaluated byCAD Version 8.3.17. RIGHT BREAST MAMMOGRAPHY This is an indeterminate (ACR Category 0) mammogram of the Right breast.There is an area of architectural distortion in the Right breast, requiring additional imaging. LEFT BREAST MAMMOGRAPHY This is a negative mammogram (ACR Category 1). There is a stablefibroglandular pattern without significant change as compared to prior studies. There isno mammographic evidence of cancer. The breasts are of scattered density. CONCLUSION ASSESSMENT IS INCOMPLETE: Additional imaging recommended (ACR Category 0)of the Right breast. The [facility] will contact the patient to schedule additional imaging. The contralateral breast is NEGATIVE (ACR Category 1). Routine screening mammography is recommended of the Left breast with the frequency dependenton the patient's age and breast cancer risk factors. Lida Acevedo APRN IMG MAMMO ORDERABL ES documented in this encounter Visit Diagnoses Not on filedocumented in this encounter Care Teams Cream Gatherer Relationship Specialty Start Date End Date Lida Acevedo APRN PCP - General 12/13/14 03/07/20 documented as of this encounter
--- OUTSIDE RECORDS SUMMARY | 2024-01-17 18:07 | XMS_ITS | Clinical Summary ---
Author Organization [facility] Address [address] [place] [address] Care Team Providers Care Retail Field Representative Name Role Phone Unavailable Primary Care Provider [...] Orientation Not on file Plan of Treatment Health Maintenance Due Date Last Done Comments Hepatitis C Screen 1960 RSV Immunization ( o r 60+ Years) (1 - 1-dose 60+ series) 2021 COVID-19 Vaccine ( season) 2023
--- OUTSIDE RECORDS SUMMARY | 2024-01-17 18:07 | XMS_ITS | Encounter Summary ---
Author Organization [facility] [place] [address] Care Team Providers Care Whiteprinting Machine Operator Name Role Phone MelodieCarolynn judd APRN Primary Care Provider [phone] Encounter Details Date Type Department Care Team (Late st Contact Info) Description 07/15/2020 9:20 PM EST Ancillary Procedure [place] [address] Carolynn Wisdom APRN [address] [place], [place] [address] Social History Tobacco Use Types Packs/Day Years [...] Dermatology at [facility] [address] [place] [address] Regina Rivas MD [facility] [address] AREVAL[place] [address] documented as of this encounter Procedures Procedure Name Priority Date/Time Associated Diagnosis Comments FILM LIBRARY STORAGE ONLY DX CHEST Routine 07/15/2020 9:14 PM EST documented in this encounter Results * Film Library- Storage Only DX Chest (07/15/2020 9:14 PM EST) Narrative LANA - 07/15/2020 9:14 PM EST This exam is auto-finalizing. It's purpose is for storage only. Carolynn Adjbinta TRIM ATTACHER IMG FILM LIBRARY OR DERABLES Performing Organization Address City/State/[facility] Co de Phone Number [place], [place] documented in this encounter Visit Diagnoses Not on filedocumented in this encounter Care Teams Whiteprinting Machine Operator Relationship Specialty Start Date End Date Carolynn Wisdom APRN [address] [place] [address] PCP - General Family Medicine 03/08/20 documented as of this encounter
--- OUTSIDE RECORDS SUMMARY | 2024-01-17 18:07 | XMS_ITS | Encounter Summary ---
Author Organization [facility] Address [facility] [place] [address] Care Team Providers Care Manager Massage Department Name Role Phone Carolynn Wisdom APRN Primary Care Provider Encounter Details Date Type Department Care Team (Late st Contact Info) Description 07/15/2020 [place] [address] Karrie Haro MD [facility] [place] [address] Social History Tobacco Use Types Packs/Day Years [...] at [facility] [address] [place] [address] Regina Rivas MD [facility] [place] [address] documented as of this encounter Visit Diagnoses Not on filedocumented in this encounter Care Teams Manager Massage Department Relationship Specialty Start Date End Date Carolynn Wisdom APRN [facility] [address] [place] [address] PCP - General Family Medicine 03/08/20 documented as of this encounter
--- OUTSIDE RECORDS SUMMARY | 2024-01-17 18:07 | XMS_ITS | Encounter Summary ---
Author Organization [facility] Address [address] [place] [address] Care Team Providers Care Services Program Manager Name Role Phone Unavailable Primary Care Provider Unavailabl e Encounter Details Date Type Department Care Team (Late st Contact Info) Description 07/04/2022 Lab Requisition [facility] Pathology & Laboratory Medicine - [facility] [address] [place] [address] Outr Resulting Lab, Provider Social History Tobacco [...] Procedure Name Priority Date/Time Associated Diagnosis Comments QUANTIFERON MITOGEN (PERFORMABLE) Today 07/03/2022 8:53 EST QUANTIFERON TB2 (PERFORMABLE) Today 07/03/2022 8:53 EST QUANTIFERON TB1 (PERFORMABLE) Today 07/03/2022 8:53 EST QUANTIFERON NIL (PERFORMABLE) Today 07/03/2022 8:53 EST QUANTIFERON INTERPRETATION (PERFORMABLE) Today 07/03/2022 8:53 EST QUANTIFERON TB GOLD PLUS Routine 07/03/2022 8:53 EST documented in this encounter Results * QUANTIFERON INTERPRETATION (PERFORMABLE) (07/03/2022 8:53 EST) Quantiferon Interpretation Negative Negative 07/05/2022 14:06 EST [facility] Comment:No interferon-gamma response to M. tuberculosis antigens was detected. ??Infection with M. tuberculosis is unlikely. A single negative result does not exclude infection with M. tuberculosis. ??In patients at high risk for M. tuberculosis infection, a second test should be considered. TB1 Ag minus Nil 0.03 IU/ml 07/05/19 14:06 EST [facility] TB2 Ag minus Nil 0.05 IU/mL 07/05/19 14:06 EST [facility] Blood VENOUS BLOOD / Unknown 07/03/2022 8:53 EST 07/05/2022 11:40 EST Narrative [facility] - 07/05/2022 14:06 EST Results were obtained with the Qiagen QuantiFERON-TB Gold Plus CLIA. New platform in use 03/08/2021 Provider Outr Resulting Lab IMMUNOLOGY A ND SEROLOGY ORDERABLES Performing Organization Address [facility] de Phone Number [facility] [address] [place] [phone] * QUANTIFERON MITOGEN (PERFORMABLE) (07/03/2022 8:53 EST) Blood VENOUS BLOOD / Unknown 07/03/2022 8:53 EST 07/04/2022 16:26 EST Provider Outr Resulting Lab IMMUNOLOGY A ND SEROLOGY ORDERABLES Performing Organization Address City/[facility] Co de Phone Number [facility] [address] [place] [address] * QUANTIFERON TB2 (PERFORMABLE) (07/03/2022 8:53 EST) Blood VENOUS BLOOD / Unknown 07/03/2022 8:53 EST 07/04/2022 16:26 EST Provider Outr Resulting Lab IMMUNOLOGY A ND SEROLOGY ORDERABLES Performing Organization Address [facility] Co de Phone Number [facility] [address] [place] [address] * QUANTIFERON TB1 (PERFORMABLE) (07/03/2022 8:53 EST) Blood VENOUS BLOOD / Unknown 07/03/2022 8:53 EST 07/04/2022 16:26 EST Provider Outr Resulting Lab IMMUNOLOGY A ND SEROLOGY ORDERABLES Performing Organization Address [facility] de Phone Number [facility] [address] [place] [address] * QUANTIFERON NIL (PERFORMABLE) (07/03/2022 8:53 EST) Blood VENOUS BLOOD / Unknown 07/03/2022 8:53 EST 07/04/2022 16:26 EST Provider Outr Resulting Lab IMMUNOLOGY A ND SEROLOGY ORDERABLES Performing Organization Address [facility] Co de Phone Number [facility] [address] [place] [address] documented in this encounter Visit Diagnoses Not on filedocumented in this encounter
--- OUTSIDE RECORDS SUMMARY | 2024-01-17 18:07 | XMS_ITS ---
Author Organization [facility] [place] [address] Care Team Providers Care Public Health Administrator Name Role Phone Carolynn Wisdom APRN Primary Care Provider Status:Enrolled (Active) Start date:03/02/2021 Enrollment date:03/02/2021 Enrollment reason:Enrolled - Currently Fills with Specialty Current support & services provided:Clinical Management, Refill Management Linked medications:ustekinumab (Active) Linked problems:Inverse psoriasis (Active) Continued Care and Services Coordination
--- OUTSIDE RECORDS SUMMARY | 2024-01-17 18:07 | XMS_ITS | Encounter Summary ---
Author Organization [facility] Address [address] [place] [address] Care Team Providers Care Mailing Specialist Name Role Phone Unavailable Primary Care Provider Unavailabl e Encounter Details Date Type Department Care Team (Late st Contact Info) Description 12/21/2020 Lab Requisition [facility] Pathology & Laboratory Medicine - [facility] [address] [place] [address] Outr Resulting Lab, Provider Social History Tobacco [...] Procedure Name Priority Date/Time Associated Diagnosis Comments ZZCOVID-19 TEST [facility] PCR Today 12/20/2020 11:47 EDT COVID-19 TESTING Routine 12/20/2020 11:4 7 EDT documented in this encounter Results * [facility]-19 [facility] (12/20/2020 11:47 EDT) Swab ENTIRE NASOPHARYNX / Unknown 12/20/2020 11:47 EDT 12/21/2020 15:35 EDT Provider Outr Resulting Lab MICROBIOLOGY - GENERAL ORDERABLES [facility] [address] [place] [address] * COVID-19 TESTING (12/20/2020 11:47 EDT) COVID-19 rt-PCR Result Negative Negative 12/22/2020 13:49 EDT [facility] Comment: This test has not been FDA cleared or approved. This test has been authorized by FDA under an EUA for use by authorized laboratories. This test has been authorized only for detection of nucleic acid from 2019-nCoV, not for any other viruses or pathogens. This test is only authorized for the duration of the declaration that circumstances exist justifying the authorization of emergency use of in vitro diagnostic tests for detection and/or diagnosis of 2019-nCoV under section 564(b)(1) of Act, 21 U.S.C ?? 360bbb-3(b) (1), unless the authorization is terminated or revoked sooner. Negative results do not preclude 2019-nCoV infection and should not be used as the sole basis for treatment or other patient management decisions. Negative results must be combined with clinical observations, patient history, and epidemiological information. This test was developed and its performance characteristics determined by [facility]. It has not been cleared or approved by the US Food and Drug Administration. FDA does not require this test to go through premarket FDA review. This test is used for clinical purposes. It should not be regarded as investigational or for research. This laboratory is certified under the Clinical Laboratory Improvement Amendments (CLIA) as qualified to perform high complexity clinical laboratory testing. This test is based on the CDC COVID-19 Emergency Use Authorization (EUA) assay, with minor modification as defined by the FDA Performed on the [employer] Labso 7 Flex RT-PCR System. Performing Lab [facility] 12/22/2020 13:49 EDT [facility] Swab 12/20/2020 11:4 7 EDT 12/21/2020 15:35 EDT Provider Outr Resulting Lab MICROBIOLOGY - GENERAL ORDERABLES [facility] [address] [place] [address] documented in this encounter Visit Diagnoses Not on filedocumented in this encounter
--- OUTSIDE RECORDS SUMMARY | 2024-01-17 18:07 | XMS_ITS | Encounter Summary ---
Author Organization [facility] Address [address] [place] [address] Care Team Providers Care Band Presser Name Role Phone Unavailable Primary Care Provider Unavailabl e Encounter Details Date Type Department Care Team (Late st Contact Info) Description 03/18/2020 Lab Requisition [facility] Pathology & Laboratory Medicine - [facility] [address] [place] [address] Carolynn Wisdom NP [address] [place] [address] Encounter for other general examination Social History Tobacco Use Types Packs/Day Years Used Date Smoking Tobacco: Never Assessed Sex and Gender Information Value Date Recorded Sex Assigned at Not on file Gender Identity Not on file Sexual Orientation Not on file documented as of this encounter Plan of Treatment Not on file documented as of this encounter Procedures Procedure Name Priority Date/Time Associated Diagnosis Comments PAP TEST Today 03/18/2020 10:00 EDT Encounter for other general examination HPV DNA DETECTION WITH GENOTYPING, PCR Today 03/18/2020 10:00 EDT Encounter for other general examination documented in this encounter Results * HUMAN PAPILLOMAVIRUS (HPV) DETECTION-HIGH RISK TYPES (03/18/2020 10:00 EDT) HPV other High Risk types, PCR Negative Negative 03/25/2020 15:07 EDT [facility] Comment:No E6 or E7 mRNA is detected from HPV types 16,18,31,33,35,39,45,51,52,56,58,59,66, and 68 by scientific specialist mediated amplification. Papanicolaou smear specimen (specimen) CERVIX UTERI STRUCTURE / Unknown 03/18/2020 10:00 EDT 03/24/2020 8:55 EDT Carolynn Adjovu ANALOG DEVICE DESIGNER MICROBIOLOGY - GENER AL ORDERABLES Performing Organization Address City/[facility]/ZIP Co de Phone Number [facility] [address] [place] [address] * PAP TEST (03/18/2020 10:00 EDT) Specimens A. Cervix and/or Endocervix , ThinPrep Imaging System with Manual Evaluation 03/25/2020 15:07 EDT [facility] Specimen Adequacy Satisfactory for Evaluation - assessment of transformation zone component not applicable ( e.g. atrophy, vaginal sample, hysterectomy) Scant due to excessive inflammation 03/25/2020 15:07 EDT [facility] General Categorization Negative for intraepithelial lesion or malignancy 03/25/2020 15:07 EDT [facility] Attestation . 03/25/2020 15:07 T [facility] at 1507 Clinical History See below 03/25/20 20 15:07 EDT [facility] HPV The result for the Human Papillomavirus (HPV) Detection-High Risk Types is Negative. No E6 or E7 mRNA is detected from HPV types 16,18,31,33,35,39 ,45,51,52,56,58,5 9,66, and 68 by scientific specialist mediated amplification.Noelle ting was performed on specimen [id number] and was resulted on 03/25/2020 1447 EDT by SVETA, LAB INSTRUMENT RESULTS IN 03/25/2020 15:07 EDT [facility] Performing Lab [facility] 03/25/2020 15:07 EDT [facility] Scanned Images 03/25/2020 15:07 EDT [facility] Papanicolaou smear specimen (specimen) CERVIX UTERI STRUCTURE / Unknown 03/18/2020 10:00 EDT 03/18/2020 15:35 EDT Carolynnji Wisdom ANALOG DEVICE DESIGNER PATHOLOGY ORDERABLES [facility] [address] [place] [address] documented in this encounter Visit Diagnoses Diagnosis Encounter for other general examination documented in this encounter
--- OUTSIDE RECORDS SUMMARY | 2024-01-17 18:07 | XMS_ITS | Encounter Summary ---
Author Organization [facility] Address [facility] [place] [address] Care Team Providers Care Surveillance Inspector Name Role Phone Carolynn Wisdom PARKING LOT SUPERVISOR Primary Care Provider Encounter Details Date Type Department Care Team (Late st Contact Info) Description 07/15/2020 [place] [address] Karrie Haro MD [facility] [place] [address] Social History Tobacco Use Types Packs/Day Years Used Date Smoking Tobacco: Never Assessed Sex and Gender Information Value Date Recorded Sex Assigned at Not on file Gender Identity Not on file Sexual Orientation Not on file documented as of this encounter Miscellaneous Notes * Telephone Encounter - Karrie Haro MD - 07/15/2020 10:33 PM EST Call from Silvana Hall PA at [facility]. Patient presented w/ complete loss of vision of the left eye a week ago that lasted 15 min. Today she has had intermittent subjective symptoms of the appearance of glass bubbles in the upper outer quadrant of the left eye, not clearly a hemianopia, seems monocular, but an battery hand dideval her today, and was concerned for something neurological. 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 ESR and CRP normal. Carotids without stenosis. Would treat as an ischemic event (aspirin, statin, consider out patient echo per PCP). Follow up with PCP for referral to local neurologist at [facility] within the next week. Consider repeat MRI brain andMRA brain. N.B. Since we have not evaluated this patient, this is not an official consultation and we are not stating that a specific treatment decision is correct or incorrect. Karrie Haro MD Staff Neurologist documented in this encounter Plan of Treatment Upcoming Encounters Date Type Department Care Team (Late st Contact Info) Description 02/01/2025 2:15 PM EDT Office Visit Dermatology at [address] [address] Regina Rivas MD [facility] [place] [address] documented as of this encounter Visit Diagnoses Not on filedocumented in this encounter Care Teams Surveillance Inspector Relationship Specialty Start Date End Date Carolynn Wisdom APRN [address] [place] [address] PCP - General Family Medicine 03/08/20 documented as of this encounter
--- OUTSIDE RECORDS SUMMARY | 2024-01-17 18:07 | XMS_ITS | Encounter Summary ---
Author Organization [facility] [place] [address] Care Team Providers Care Bee Keeper Name Role Phone Reginaldomarcus Carolynn CASTELLON Primary Care Provider Encounter Details Date Type Department Care Team (Late st Contact Info) Description 04/08/2020 8:21 AM EDT - 04/08/2020 11:59 PM EDT [facility] [place] [address] Carolynn Wisdom APRN [address] [place] [address] Encounter for screening mammogram for malignant neoplasm of breast Discharge Disposition: Home Social History Tobacco Use [...] Meter Misc by NOT APPLICABLE route. 03/18/2020 documented as of this encounter Plan of Treatment Upcoming Encounters Date Type Department Care Team (Late st Contact Info) Description 02/01/2025 2:15 PM EDT Office Visit Dermatology at [facility] [address] [place] [address] Regina Rivas MD [facility] [place] [address] documented as of this encounter Procedures Procedure Name Priority Date/Time Associated Diagnosis Comments MAMMO SCREENING CAD AND JORGE BILATERAL Routine 04/08/2020 8:43 AM EDT Encounter for screening mammogram for malignant neoplasm of breast documented in this encounter Results * Mammo Screening Cad and Jorge Bilateral (04/08/2020 8:43 AM EDT) Anatomical Region Laterality Modality Breast Bilateral Mammography Narrative 04/08/2020 8:48 AM EDT BILATERAL MAMMOGRAPHY REASON FOR EXAM: Screening TECHNIQUE: [...] [facility] BIRADS CATEGORY 1: NEGATIVE Carolynn Adjovu AUTOMATIC CORN GRINDER OPERATOR IMG MAMMO ORDERABLE S documented in this encounter Visit Diagnoses Diagnosis Encounter for screening mammogram for malignant neoplasm of breast Other screening mammogram documented in this encounter Care Teams Bee Keeper Relationship Specialty Start Date End Date Carolynn Wisdom APRN [address] [place] [address] PCP - General Family Medicine 03/08/20 documented as of this encounter
--- OUTSIDE RECORDS SUMMARY | 2024-01-17 18:07 | XMS_ITS | Encounter Summary ---
Author Organization [facility] Address [facility] [place] [address] Care Team Providers Care Dental Laboratory Manager Name Role Phone Lida Acevedo Cindy CASTELLON Primary Care Provider [phone] Encounter Details Date Type Department Care Team (Late st Contact Info) Description 12/14/2014 Orders [place] [address] Hina Bustamante MD [facility] [place] [address] Abnormal mammogram, unspecified Social History Tobacco Use Types Packs/Day Years [...] 2:15 PM EDT Office Visit Dermatology at [address] [place] [address] Regina Rivas MD [facility] [address] [place] [address] documented as of this encounter Results * Mammo call back [...] encounter Visit Diagnoses Diagnosis Abnormal mammogram, unspecified Abnormal mammogram, unspecified documented in this encounter Care Teams Dental Laboratory Manager Relationship Specialty Start Date End Date Lida Acevedo APRN PCP - General 12/13/14 03/07/20 documented as of this encounter
== END 2024-01-17 18:03 | disposition home or self-care (01) ==
LOC: LBN 18:02
PROVIDERS: PCP Nurse Practitioner Family; Visit Provider Nurse Practitioner Family
DX: E11.9 Type 2 diabetes mellitus without complications (principal)
CPT/HCPCS: 82043; 82570

== ENCOUNTER 2024-01-29 15:34 | Outpatient (CLI) | payer BC, SELFPAY ==
[2024-01-29 10:25] LABS: Abs Immature Grans 0.02 10^3/uL (0.0-0.06); Absolute Basophil Count 0.07 10^3/uL (0.0-0.2); Absolute Eosinophil Count 0.14 10^3/uL (0.0-0.7); Absolute Monocyte Count 0.46 10^3/uL (0.1-0.8); Absolute Neutrophil Count 3.79 10^3/uL (1.2-6.7); Eosinophils % 2.1 %; HCT 37.8 % (36.0-46.0); HGB 12.7 g/dL (11.2-15.7); Immature Grans % 0.3 %; Lymphocytes % 32.9 %; MCH 30.1 pg (27.0-33.0); MCHC 33.6 % (32.0-36.0); MCV 90 fL (80-95); MPV 10.6 fL (8.0-11.0); Monocytes % 6.9 %; Neutrophils % 56.8 %; Platelet Count 239 10^3/uL (130-400); RBC 4.22 10^6/uL (3.93-5.22); RDW 12.6 % (11.7-14.6); RDW-SD 41.3 fL; WBC 6.68 10^3/uL (4.4-10.8)
[2024-01-29 11:24] LABS: ALT 38 U/L (14-59); AST 21 U/L (15-37); Albumin 3.7 g/dL (3.4-5.0); Alkaline Phosphatase 70 U/L (46-116); Anion Gap 7.8 mmol/L (3-11); BUN 11 mg/dL (7-18); CO2 30.2 mmol/L (21.0-32.0); CREATININE 0.7 mg/dL (0.55-1.02); Calcium 9.2 mg/dL (8.5-10.1); Chloride 102 mmol/L (98-107); Estimated GFR 97.72 (mL/min/1.73m2); Glucose 139 mg/dL (74-106); Potassium 4.2 mmol/L (3.5-5.1); Sodium 140 mmol/L (136-145); Total Protein 7.1 g/dL (6.4-8.2)
--- OUTSIDE RECORDS SUMMARY | 2024-01-29 15:37 | XMS_ITS | Encounter Summary ---
[facility] Organization [facility] [place] [address] Care Team Providers Care Home Health Specialist Name Role Phone Carolynn Wisdom [place] Primary Care Provider Encounter Details Date Type Department Care Team (Latest Contact Info) Description 01/09/2024 Specialty [place] [phone] Jane Cannon [facility] Refill Coordination - 56 day recurrence (ustekinumab) for Dermatology Social History Tobacco Use Types Packs/Day Years Used Date Smoking Tobacco: Former Cigarettes 0.3 3 0 12/31/1986 - 12/31/1989 Smokeless Tobacco: Never Alcohol Use Standard Drinks/Week Comments Yes 3 (1 standard drink = 0.6 oz pur e alcohol) [facility] Inpatient Questions Answer Date Recorded Does Anyone [...] this encounter Progress Notes * Jane Cannon [facility] - 01/09/2024 8:46 AM EDTSummary: Stelara Refill Clinical Management Plan: Refill Specialty Pharmacy Consultation; Jane Cannon [facility] Comprehensive Medication Management (CMM) Ms. Melinda L [...] to [facility] med list) No Review Flowsheet 01/09/2024 9:21 [...] 2:15 PM EDT Office Visit Dermatology at [facility] [address] [place] [address] Regina Rivas MD [facility] [place] [address] documented as of this encounter Goals Goal [...] Continue to work with sleep at [facility] Goal 7 hours of sleep nightly. Recommend [...] on filedocumented in this encounter Care Teams Home Health Specialist Relationship Specialty Start Date End Date Carolynn Wisdom APRN [address] [place] [address] PCP - General Family Medicine 03/08/20 documented as of this encounter
--- OUTSIDE RECORDS SUMMARY | 2024-01-29 15:37 | XMS_ITS | Encounter Summary ---
Author Organization [facility] Address [facility] [place] [address] Care Team Providers Care Meat Stocker Name Role Phone Carolynn Wisdom CANDE Primary Care Provider [phone] Reason for Visit * Reason Comments Medication Refill Encounter Details Date Type Department Care Team (Late st Contact Info) Description 01/07/2023 Refill [place] [address] [place] [address] Social History Tobacco Use Types Packs/Day Years Used Date Smoking Tobacco: Former Cigarettes 0.3 3 0 12/31/1986 - 12/31/1989 Smokeless Tobacco: Never Alcohol Use Standard Drinks/Week Comments Yes 3 (1 standard drink = 0.6 oz pur e alcohol) [facility] Inpatient Questions Answer Date Recorded [...] 2:15 PM EDT Office Visit Dermatology at [facility] [address] [place] [address] Regina Rivas MD [facility] [place] [address] documented as of this encounter Goals Goal [...] Continue to work with sleep at [facility] Goal 7 hours of sleep [...] on filedocumented in this encounter Care Teams Meat Stocker Relationship Specialty Start Date End Date Carolynn Wisdom APRN [address] [place] [address] PCP - General Family Medicine 03/08/20 documented as of this encounter
--- OUTSIDE RECORDS SUMMARY | 2024-01-29 15:37 | XMS_ITS | Clinical Summary ---
Author Organization [facility] Address [facility] [place] [address] Care Team Providers Care Bird Sitter Name Role Phone Carolynn Wisdom CANDE Primary [...] Team Description 01/14/2024 Specialty [place] [phone] Christin Connors V [facility] Started Clinical Assessment - 10 month recurrence (ustekinumab) for Dermatology 01/13/2024 3:15 PM EDT Office Visit Dermatology at [facility] [address] [place] [phone] Regina Rivas MD Inverse psoriasis; High risk medication use 01/13/2024 Travel 01/09/2024 Specialty [place] [address] Jane Cannon [facility] Refill Coordination - 56 day recurrence (ustekinumab) for Dermatology 12/02/2023 [place]ty [place] [address] Viridiana Lemus [facility] Started Clinical Assessment - 10 month recurrence (ustekinumab) for Dermatology 12/02/2023 Refill Dermatology at [facility] [address] [place] [phone] Lisa Vasquez MD from Last 3 Months [...] drink = 0.6 oz pur e alcohol) [facility] Inpatient Questions Answer Date Recorded Does [...] 2:15 PM EDT Office Visit Dermatology at [facility] [address] [place] [address] Regina Rivas MD [facility] [address] [place] [address] Health Maintenance Due Date Last Done Comments [...] Continue to work with sleep at [facility] Goal 7 hours of sleep [...] who have questions please contact the health spiritual care coordinator that requested your imaging first. ? Narrative [...] areas of distortion. Stable appearance. Carolynn Adjovu MATERIAL SPREADER IMG MAMMO ORDERABLE S * Comprehensive metabolic panel (non-fasting) (02/15/2023 12:24 PM EDT) Glucose Lvl 151 65 - 199 mg/dL [facility] Comment:Diabetes: >=200 mg/d L plus symptoms BUN 8 8 - 18 mg/dL [facility] Creatinine 0.70 0.70 - 1.20 mg/dL [facility] Sodium 143 135 - 145 mmol/L [facility] Potassium 3.6 3.5 - 5.0 mmol/L [facility] Comment: Please note: ??Patients with WBC >100,000 may have falsely elevated Potassium levels. ??For accurate Potassium quantification in these patients send serum separator tube (gold top) for subsequent determinations. ??Contact the Clinical Chemistry Laboratory if there are any questions. Chloride 106 98 - 107 mmol/L [facility] CO2 25 22 - 31 mmol/L [facility] Anion Gap 12 5 - 15 mmol/L [facility] Calcium 9.6 8.5 - 10.5 mg/dL [facility] Total Protein 6.8 6.1 - 8.0 g/dL [facility] Albumin 4.4 3.2 - 5.2 g/dL [facility] AST 19 0 - 30 unit/L [facility] ALT 17 0 - 30 unit/L [facility] Alk Phos 65 35 - 105 unit/L [facility] Total Bilirubin 0.4 0.2 - 1.3 mg/dL [facility] Estimated GFR 98 >=60 mL/min/1. 73 m?? [facility] Comment: This patient's estimated GFR [...] Agency Comment Spec In Lab Krystin Sharpe MATERIAL SPREADER CHEMISTRY ORDERABL ES [facility] [place] [address] * Hepatitis C Antibody (11/16/2020 11:11 AM EDT) Hepatitis C Ab Negative Negative [facility] Blood 11/16/2020 11:1 1 AM EDT 11/16/2020 12:49 PM EDT Narrative Resulting Agency Comment Spec In Lab Emmy Nava MD IMMUNOLOGY ORDERA KENDRA [facility] [place] [address] from Last 3 Months or Most Recently Relevant to Health Maintenance Advance Directives * Attempt Cardiopulmonary Resuscitation - Inpatient (Latest Code Status on File) Date Activated Date Inactivated Comments 10/19/2022 1:54 PM 10/21/2022 4:28 PM Question Answer Comments Code Status decision made by: Patient Care Teams Bird Sitter Relationship Specialty Start Date End Date Carolynn Wisdom APRN [address] [place] [address] PCP - General Family Medicine 03/08/20
--- OUTSIDE RECORDS SUMMARY | 2024-01-29 15:37 | XMS_ITS | Encounter Summary ---
Author Organization [facility] Address [facility] [place] [address] Care Team Providers Care Turbine Operator Name Role Phone Carolynn Wisdom APRN Primary Care Provider [phone] Encounter Details Date Type Department Care Team (Late st Contact Info) Description 06/18/2023 1:28 PM EST - 06/18/2023 11:59 PM [facility] Hospital Encounter Mammography/[place] [address] Carolynn Wisdom APRN [address] [place] [address] Visit for screening mammogram Discharge Disposition: Home Social History Tobacco Use Types Packs/Day Years Used Date Smoking Tobacco: Former Cigarettes 0.3 3 0 12/31/1986 - 12/31/1989 Smokeless Tobacco: Never Alcohol Use Standard Drinks/Week Comments Yes 3 (1 standard drink = 0.6 oz pur e alcohol) [facility] Inpatient Questions Answer Date Recorded Does [...] 2:15 PM EDT Office Visit Dermatology at [facility] [address] [place] [address] Regina Rivas MD [facility] [place] [address] documented as of this encounter Goals Goal [...] to work with sleep at [facility] Goal 7 hours of sleep nightly. [...] who have questions please contact the health animal caretaker that requested your imaging first. ? Electronically signed by: Jo Garcia MD, [facility] ([phone]), at 06/19/2023 7:28 AM Narrative 06/19/2023 7:28 AM EST EXAMINATION: MAMMO [...] mammogram documented in this encounter Care Teams Turbine Operator Relationship Specialty Start Date End Date Carolynn Wisdom APRN [address] [place] [address] PCP - General Family Medicine 03/08/20 documented as of this encounter
--- OUTSIDE RECORDS SUMMARY | 2024-01-29 15:37 | XMS_ITS | Encounter Summary ---
Author Organization [facility] Address [facility] [place] [address] Care Team Providers Care Carrier Blower Name Role Phone Carolynn Wisdom APRN Primary [...] [facility] [address] [place] [phone] Regina Rivas MD [facility] [place] [address] documented as of this encounter Goals Goal [...] track(2021 11:37 AM EDT) No Michelle Jaquez, RN BABY Note: Mindfulness/deep breathing practice to reduce cortisol -try for at least 10 minutes a day sleep Lifestyle On track(2021 11:37 AM EDT) Michelle Tai, CANDE Note: Continue to work with sleep at [facility] Goal 7 hours of sleep [...] on filedocumented in this encounter Care Teams Carrier Blower Relationship Specialty Start Date End Date Carolynn Wisdom APRN [address] [place] [address] PCP - General Family Medicine 03/08/20 documented as of this encounter
--- OUTSIDE RECORDS SUMMARY | 2024-01-29 15:37 | XMS_ITS | Encounter Summary ---
Author Organization [facility] Address [facility] [place] [address] Care Team Providers Care Creative Engagement Director Name Role Phone Carolynn Wisdom MANAGER DOCUMENT Primary Care Provider Encounter Details Date Type Department Care Team (Late st Contact Info) Description 01/31/2023 Refill Dermatology at [facility] [address] [place] [address] Lisa Vasquez MD [facility] [place] [address] Social History Tobacco Use Types Packs/Day Years [...] Visit Dermatology at [facility] [address] [place] [address] Regina Rivas MD [facility] [place] [address] documented as of this encounter Goals Goal [...] Note: Continue to work with sleep at [facility] Goal 7 hours of sleep [...] on filedocumented in this encounter Care Teams Creative Engagement Director Relationship Specialty Start Date End Date Carolynn Wisdom APRN [address] [place] [address] PCP - General Family Medicine 03/08/20 documented as of this encounter
--- OUTSIDE RECORDS SUMMARY | 2024-01-29 15:37 | XMS_ITS | Encounter Summary ---
[place] [address] Care Team Providers Care Fence Rider Name Role Phone Carolynn Wisdom APRN Primary Care Provider Reason for Visit * Reason Comments Specialty Refill Management Specialty Pharmacy Review Encounter Details Date Type Department Care Team (Late st Contact Info) Description 04/18/2023 Specialty [place] [address] Ibeth Real [facility] Social History Tobacco Use Types Packs/Day Years Used Date Smoking Tobacco: Former Cigarettes 0.3 3 0 12/31/1986 - 12/31/1989 Smokeless Tobacco: Never Alcohol Use Standard Drinks/Week Comments Yes 3 (1 standard drink = 0.6 oz pur e alcohol) [facility] Inpatient Questions Answer Date Recorded Does [...] beneficiary Provider: plan sponsor [facility] Time Spent: 1-15 min Method of Contact: by telephone Cognitive Ability: good Allergies and Drug intolerance: No Known Allergies Medication Reconciliation Discrepancies (compared to [facility] med list) -n/a Specialty Pharmacy [...] Used: directed education, calendar Other Adherence Tool: resource management planner Pt understands no changes to current drug regimen were made at the appointment and that [facility] is providing recommendations (summary located [...] PM EDT Office Visit Dermatology at [address] [address] Regina Rivas MD [facility] DR [place] [address] documented as of this encounter Goals Goal [...] training 3 times a week -can use [employer] - 02/27/22 Lifestyle On track(2021 11:38 [...] psoriasis documented in this encounter Care Teams Fence Rider Relationship Specialty Start Date End Date Carolynn Wisdom APRN [address] [place] [address] [address] [place] [address] PCP - General Family Medicine 03/08/20 documented as of this encounter
--- OUTSIDE RECORDS SUMMARY | 2024-01-29 15:37 | XMS_ITS | Encounter Summary ---
Author Organization [facility] Address [facility] [place] [address] Care Team Providers Care Frame Straightener Name Role Phone MelodieCarolynn judd CANDE Primary Care Provider Encounter Details Date Type Department Care Team (Late st Contact Info) Description 07/16/2023 Telephone Sleep Center at [facility] [address] [place] [address] Blaire Mcneal Social History Tobacco Use Types [...] feeling well Appointment canceled for Melinda Goncalves ([id number]) Visit Type: FOLLOW UP VISIT Date Time Length Provider Department 07/11/2023 2:00 PM 30 mins. MERLINE PAULINO [facility] SLEEP MEDICINE Reason for Cancellation: P-NO LONGER NEEDED documented in this encounter Plan of Treatment Upcoming Encounters Date Type Department Care Team (Late st Contact Info) Description 02/01/2025 2:15 PM EDT Office Visit Dermatology at [facility] [address] [place] [address] Regina Rivas MD [facility] DR [address] [place] [address] documented as of this encounter Goals Goal [...] Continue to work with sleep at [facility] Goal 7 hours of sleep nightly. Recommend consistent sleep and wake times, avoid electronics within one hour of sleep time movement Lifestyle No Michelle Jaquez, CHRISTIAN SCIENCE HEALER Note: Exercise goal is 150 -300 min [...] on filedocumented in this encounter Care Teams Frame Straightener Relationship Specialty Start Date End Date Carolynn Wisdom APRN [address] [place] [address] PCP - General Family Medicine 03/08/20 documented as of this encounter
--- OUTSIDE RECORDS SUMMARY | 2024-01-29 15:37 | XMS_ITS | Encounter Summary ---
Author Organization [facility] Address [facility] [place] [address] Care Team Providers Care Grocery Stocker Name Role Phone Carolynn Wisdom APRN Primary Care Provider [phone] Encounter Details Date Type Department Care Team [...] [facility] [address] [place] [address] Regina Rivas MD [facility] [place] [address] documented as of this encounter Goals Goal [...] track(2021 11:37 AM EDT) No Michelle Jaquez, SCREENER AND BLENDER Note: Mindfulness/deep breathing practice to reduce cortisol -try for at least 10 minutes a day sleep Lifestyle On track(2021 11:37 AM EDT) Michelle Tai, CANDE Note: Continue to work with sleep at [facility] Goal 7 hours of sleep nightly. [...] on filedocumented in this encounter Care Teams Grocery Stocker Relationship Specialty Start Date End Date Carolynn Wisdom APRN [address] [place] [address] PCP - General Family Medicine 03/08/20 documented as of this encounter
--- OUTSIDE RECORDS SUMMARY | 2024-01-29 15:37 | XMS_ITS | Encounter Summary ---
[place] [address] Care Team Providers Care Cementer Helper Name Role Phone Carolynn Wisdom APRN Primary Care Provider Reason for Visit * Reason Comments Prior Authorization Stelara 90mg /mL SOS Y Encounter Details Date Type Department Care Team (Late st Contact Info) Description 04/24/2023 Specialty [place] [address] Darnell Wiggins, [facility] Social History Tobacco Use Types Packs/Day Years Used Date Smoking Tobacco: Former Cigarettes 0.3 3 0 12/31/1986 - 12/31/1989 Smokeless Tobacco: Never Alcohol Use Standard Drinks/Week Comments Yes 3 (1 standard drink = 0.6 oz pur e alcohol) [facility] Inpatient Questions Answer Date Recorded Does [...] Melinda Goncalves Patient : 1960 Patient Address: [address] [place] [address] Phone: [phone] (home) Medication Name: STELARA 90 MG/ML SUBCUTANEOUS SYRINGE Medication ID: Subscriber Insurance: Subscriber Insurance Comment: [facility] (IRX) Fax: Physician: PATRICIA HASSAN Physician Comment: Sent Via: [facility] Oneal: [id number] Ref/Case/PA#: [id number] Medication Strength Frequency Requested: Stelara 90mg/mL SOSY. [...] Melinda Goncalves Patient : 1960 Patient Address: [address] [place] [id number] Phone: [phone] (home) Medication Name: STELARA 90 MG/ML SUBCUTANEOUS SYRINGE Medication ID: Patient Location: [facility] Patient Location Comment: Medication Strength Frequency Requested: Stelara 90mg/mL SOSY. Inject the contents of one syringe (90mg) SQ every 8 weeks Qty/Day Supply: New Start: Change in Dose Diagnosis & ICD-10 Code: Inveerse Psoriasis L40.8 Subscriber Insurance: Subscriber Insurance Comment: [facility] (IRX) Fax: Physician: PATRICIA HASSAN Physician Comment [...] 2:15 PM EDT Office Visit Dermatology at [address] [address] Regina Rivas MD [facility] [place] [address] documented as of this encounter Goals Goal [...] Note: Continue to work with sleep at [facility] Goal 7 hours of sleep nightly. [...] on filedocumented in this encounter Care Teams Cementer Helper Relationship Specialty Start Date End Date Carolynn Wisdom, CANDE [address] [place] [address] PCP - General Family Medicine 03/08/20 documented as of this encounter
--- OUTSIDE RECORDS SUMMARY | 2024-01-29 15:37 | XMS_ITS | Encounter Summary ---
Author Organization [facility] Address [facility] [place] [address] Care Team Providers Care Geomorphology Teacher Name Role Phone MelodieCarolynn judd CANDE Primary Care Provider Reason for Visit * Reason Comments Follow-up Encounter Details Date Type Department Care Team (Late st Contact Info) Description 02/15/2023 12:30 PM EDT Office [place] [address] Marjorie Holman, SPRING COVERER [facility] [place] [address] Mirian Horowitz, RD [facility] [place] [address] S/P bariatric surgery; Disorder of iron metabolism; Post-resection malabsorption; Adult BMI 30.0-30.9 kg/sq m; HEATHER (obstructive sleep apnea) Social History Tobacco Use Types Packs/Day Years Used Date Smoking Tobacco: Former Cigarettes 0.3 3 0 12/31/1986 - 12/31/1989 Smokeless Tobacco: Never Alcohol Use Standard Drinks/Week Comments Yes 3 (1 standard drink = 0.6 oz pur e alcohol) [facility] Inpatient Questions Answer Date Recorded Does [...] Patient Instructions * Patient Instructions* Marjorie Holman, CANDE - 02/15/2023 12:30 PM EDT BSP community support worker Aisha [phone] and Anitha [phone] Dietitians: [phone] Surgeons/ nurse practitioners: [phone] Nurse line: [phone] Dear Melinda, Please see your electronic medical record note from today for details we discussed at your visit. Below is some additional general information that you may find helpful. Testing: It would be helpful if you can have your lab work drawn a couple days before your visit lisa [facility] facility so the results are available at the time of your follow up visit. If you have labwork done by your primary health care marketing manager before that date, please have a copy sent to the Bariatric Surgery Program. Please call/send my message if you have not heard from us within 2 weeks of having labs work done. Here's the link to [facility] Lab hours and locations: [email or web address] Next visit: Follow up visits are done at 4 months and 12 months after surgery and yearly thereafter. Some patients are evaluated on a more frequent basis. Please call [phone] if you do not receive an appointment [...] Blow dry area on low setting with hairpiece stylist. Avoid excessive heat and/or sweating as friction [...] such as Ibuprofen (Advil), Aleve (Naproxen), Excedrin, Margot-[place] should be used sparingly after gastric bypass, [...] Our post surgery support group meets at [facility] on the first Saturday of every month from 1:00 PM-2:00 PM. You can attend online or in person. Use the following link to attend online: [email or web address] Nutrition and Activity apps- Baritastic, My Fitness Pal, Lose It, My Plate Internet resources: www.TaCerto.com www.Whyteboard www.PlayJam www.[employer]/blog [facility] facebook page: [email or web address]/[facility]Bariatric[facility]gery Books & Magazines: - Recipes for Life After Weight Loss Surgery by Ivana Oscar - Shrink Yourself by Dr Crispin Loera - Eating Well - www.interclick - Cooking Light- www.cookinglight.[employer] Anxiety: The Happiness Trap by Scott Miranda The Mindfulness and acceptance workbook for anxiety By Jewel Rdz. Mindful eating: What are you Hungry For? By Landen Dotson The Mindful Diet by Tatum Leon and the [facility] group. 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 Mkceon Weight History: Date Weight (lbs) HT BMI Comments Age 46 253# Highest Weight 08/10/21 225# Initial program weight 07/31/22 220# 64 37.7 1st pre-op visit 10/19/22 220# EWL % Surgery 11/09/22 199.8# 27% 34.8 3 weeks post-op 02/15/23 179.2# 49% 30.8 4 months post-op [place] Body Weight (based on BMI of 25): 146# 30-70% Excess Weight Loss: 168-198#; 50% Excess Weight Loss: 183# MEDICATIONS: Vitamin/Mineral Supplements (reported by patient): Supplement Type Brand/Form Dosage/Amount Frequency Comments Multivitamin Bariatric 1 pill daily Calcium citrate chews 1 chew (500 mg) 3 x daily Ok to decrease to 2. Vitamin B12 Iron Vitamin D3 Food Allergies/Intolerances: pasta Tracking Intake: has [employer] cindy 24-Hour Intake: occ makes a protein [...] 02/15/2023 12:30 PM EDT [place] [address] Reason for visit: Bariatric Surgery follow up [...] denies SOB or cough. GI: as above THREAD CUTTER TENDER: post menopausal Skin: + redundant skin arms/thighs. [...] chewing well enough. Patient has met with toolroom helper today, please see note for additional details/dietary [...] If labwork is done by the primary health care marketing manager: please send a copy to the Bariatric Surgery Program, General Surgery Clinic, [facility], or fax [phone] documented in this encounter Plan of Treatment Upcoming Encounters Date Type Department Care Team (Late st Contact Info) Description 02/01/2025 2:15 PM EDT Office Visit Dermatology at [address] [address] Regina Rivas MD [facility] [place] [address] documented as of this encounter Goals Goal Patient Goal Type Associated Problems Recent Progress Patient-Stated? Author meal timing/food choices/ bariatric behaviors Lifestyle On track(2021 11:38 AM EDT) No Leonid, Michelle L, SPRING COVERER Note: Work on eating more mindfully Try [...] track(2021 11:37 AM EDT) No Michelle Jaquez, SPRING COVERER Note: Mindfulness/deep breathing practice to reduce cortisol -try for at least 10 minutes a day sleep Lifestyle On track(2021 11:37 AM EDT) No Michelle Jaquez, SPRING COVERER Note: Continue to work with sleep at [facility] Goal 7 hours of sleep nightly. Recommend consistent sleep and wake times, avoid electronics within one hour of sleep time movement Lifestyle No Michelle Jaquez, SPRING COVERER Note: Exercise goal is 150 -300 min [...] (pediatric) documented in this encounter Care Teams Geomorphology Teacher Relationship Specialty Start Date End Date Carolynn Wisdom APRN [address] [place] [address] PCP - General Family Medicine 03/08/20 documented as of this encounter
--- OUTSIDE RECORDS SUMMARY | 2024-01-29 15:37 | XMS_ITS | Encounter Summary ---
[place] [address] Care Team Providers Care Research Dairy Farm Supervisor Name Role Phone Carolynn Wisdom APRN Primary Care Provider Reason for Visit * Reason Comments Prior Authorization Stelara 90mg/ml sosy Encounter Details Date Type Department Care Team (Late st Contact Info) Description 03/20/2023 Specialty [place] [address] Ibeth Bermudez, CAPSULE MACHINE OPERATOR Social History Tobacco Use Types Packs/Day Years Used Date Smoking Tobacco: Former Cigarettes 0.3 3 0 12/31/1986 - 12/31/1989 Smokeless Tobacco: Never Alcohol Use Standard Drinks/Week Comments Yes 3 (1 standard drink = 0.6 oz pur e alcohol) [facility] In[facility] Questions Answer Date Recorded Does [...] Goncalves Patient : 1960 Patient Address: [address] [address] Phone: [phone] (home) Medication Name: STELARA 90 MG/ML SUBCUTANEOUS SYRINGE Medication ID: [id number] Subscriber Insurance: Subscriber Insurance Comment: [facility] (IRX) Phone: Fax: Physician: PATRICIA HASSAN Physician Comment: Sent Via: [facility] Oneal: [id number] Ref/Case/PA#: Medication Strength Frequency Requested: INJECT THE CONTENTS OF ONE SYRINGE SUBCUTANEOUSLY EVERY 12WEEKS Qty/Day Supply: New Start: Renewal 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 Patient Notified: No Submission Notes: None Ibeth Bermudez 03/20/23 11:54 AM * Ibeth Bermudez - 03/20/2023 11:53 AM EDT Count Includes [facility], Prior Authorization Approval Medication Name: STELARA 90 MG/ML SUBCUTANEOUS SYRINGE Medication ID: [id number] Approval Dates: 03/20/2023 to 03/20/2024 Insurance requirements/notes: None Other Notes: None Case/Reference #: [id number] Approval notification Received via: [facility] Copay: Copay assistance: Copay Notes: Per fill hx, $5.00 copay Insurance mandated Pharmacy: [facility] Fillable at Count Includes [facility]: Yes Patient Notified: No Pharmacy staff will be reaching out to the patient to inform them of their [facility]. If applicable, a pharmacist will [...] For The Criminally Insane [address] [place] [id number] Regina Rivas MD [facility] [address] [place] [address] documented as of this encounter Goals Goal [...] Note: Continue to work with sleep at [facility] Goal 7 hours of sleep nightly. Recommend consistent sleep and wake times, avoid electronics within one hour of sleep time movement Lifestyle No Leonid, Michelle L, ARTILLERY OR NAVAL GUNFIRE OBSERVER Note: Exercise goal is 150 -300 min [...] filedocumented in this encounter Care Teams Research Dairy Farm Supervisor Relationship Specialty Start Date End Date Carolynn Wisdom APRN [address] [place] [address] PCP - General Family Medicine 03/08/20 documented as of this encounter
--- OUTSIDE RECORDS SUMMARY | 2024-01-29 15:37 | XMS_ITS | Encounter Summary ---
Author Organization [facility] Address [facility] [place] [address] Care Team Providers Care Account Relationship Manager Name Role Phone Carolynn Wisdom RETAIL DEPARTMENT SUPERVISOR Primary Care Provider Encounter Details Date Type Department Care Team (Late st Contact Info) Description 03/21/2023 Telephone Dermatology at [facility] [address] [place] [address] Louise Curiel MD [facility] [place] [address] Social History Tobacco Use Types Packs/Day Years [...] mg/mL subcutaneous injection has been approved by [facility]. . Fax authorization to follow. Please inform patient. documented in this encounter Plan of Treatment Upcoming Encounters Date Type Department Care Team (Late st Contact Info) Description 02/01/2025 2:15 PM EDT Office Visit Dermatology at [facility] [address] [place] [address] Regina Rivas MD [facility] [place] [address] documented as of this encounter Goals Goal [...] Note: Continue to work with sleep at [facility] Goal 7 hours of [...] on filedocumented in this encounter Care Teams Account Relationship Manager Relationship Specialty Start Date End Date Carolynn Wisdom APRN [address] [place] [address] PCP - General Family Medicine 03/08/20 documented as of this encounter
--- OUTSIDE RECORDS SUMMARY | 2024-01-29 15:37 | XMS_ITS | Encounter Summary ---
[place] [address] Care Team Providers Care Delineator Name Role Phone Carolynn Wisdom FLY WINDER Primary Care Provider [phone] Reason for Visit * Reason Comments Medication Management Encounter Details Date Type Department Care Team (Late st Contact Info) Description 11/01/2022 Specialty Pharmacy [place] [address] Ibeth Real [facility] Social History Tobacco Use Types Packs/Day Years Used Date Smoking Tobacco: Former Cigarettes 0.3 3 0 12/31/1986 - 12/31/1989 Smokeless Tobacco: Never Alcohol Use Standard Drinks/Week Comments Yes 3 (1 standard drink = 0.6 oz pur e alcohol) [facility] Inpatient Questions Answer Date Recorded [...] 11/01/2022 1:30 PM EDT Specialty Pharmacy Consultation; Iebth Real RPH Comprehensive Medication Management (CMM): Specialty [...] is it safe to start Stelara? Recommendation: Meilnda held her dose of Stelara due to [...] Stelara yet until we hear from her rn on site on when it is safe to resume [...] start Stelara? Recommendation: Discuss with surgeon and rn on site on when it is safe to resume Stelara after bariatric surgery. Outcome: Surgeon says it is safe to resume Stelara one month after surgery. Surgery date 10/19 so safe to resume 11/16. Assistant Boys Track Coach says ok to resume maintenance dose of every 12 weeks. Patient was made awareand confirmed understanding of recommendation. Stelara was filled at shipped to her home. Ibeth Real RPH 11/14/22 12:43 PM documented in this encounter Plan of Treatment Upcoming Encounters Date Type Department Care Team (Late st Contact Info) Description 02/01/2025 2:15 PM EDT Office Visit Dermatology at [place] [address] [place] [address] Regina Rivas MD [facility] [address] [place] [address] documented as of this encounter Goals Goal [...] Note: Continue to work with sleep at [facility] Goal 7 hours of [...] psoriasis documented in this encounter Care Teams Delineator Relationship Specialty Start Date End Date Artis CANDE Pradhan [address] [place] [address] PCP - General Family Medicine 03/08/20 documented as of this encounter
--- OUTSIDE RECORDS SUMMARY | 2024-01-29 15:37 | XMS_ITS | Encounter Summary ---
Author Organization [facility] Address [facility] [place] [address] Care Team Providers Care Ice Delivery Driver Name Role Phone Carolynn Wisdom CENTRAL SUPPLY TECHNICIAN SUPERVISOR Primary Care Provider Encounter Details Date Type Department Care Team (Late st Contact Info) Description 12/02/2023 Refill Dermatology at [facility] [address] [place] [address] Lisa Vasquez MD [facility] [place] [address] Social History Tobacco Use Types Packs/Day Years [...] Dermatology at [facility] [address] [address] Regina Rivas MD [facility] [place] [address] documented as of this encounter Goals Goal [...] Note: Continue to work with sleep at [facility] Goal 7 hours of sleep nightly. [...] on filedocumented in this encounter Care Teams Ice Delivery Driver Relationship Specialty Start Date End Date Carolynn Wisdom APRN [address] [place] [address] PCP - General Family Medicine 03/08/20 documented as of this encounter
--- OUTSIDE RECORDS SUMMARY | 2024-01-29 15:37 | XMS_ITS | Encounter Summary ---
Author Organization [facility] Address [facility] [place] [address] Care Team Providers Care Opener Verifier Packer Customs Name Role Phone Carolynn Wisdom CHILD THERAPIST Primary Care Provider Encounter Details Date Type Department Care Team (Latest Contact Info) Description 01/14/2024 Specialty [place] [address] [facility] Started Clinical Assessment - 10 month recurrence [...] PM EDT Office Visit Dermatology at [facility] [address] [place] [address] Regina Rivas MD [facility] [place] [address] documented as of this encounter Goals Goal [...] on filedocumented in this encounter Care Teams Opener Verifier Packer [employer] Relationship Specialty Start Date End Date Carolynn Wisdom APRN [address] [place] [address] PCP - General Family Medicine 03/08/20 documented as of this encounter
--- OUTSIDE RECORDS SUMMARY | 2024-01-29 15:37 | XMS_ITS | Encounter Summary ---
Author Organization [facility] Address [facility] [address] Care Team Providers Care Knowledge Management Advisor Name Role Phone MelodieCarolynn judd CANDE Primary Care Provider Encounter Details Date Type Department Care Team (Late st Contact Info) Description 11/09/2022 12:30 PM EDT Office [place] [address] Marjorie Holman, ROTARY ROCK DRILLING MACHINE OPERATOR [facility] [place] [address] Mirian Horowitz, RD [facility] [address] S/P bariatric surgery; Disorder of iron metabolism; Type 2 diabetes mellitus without complication, with long-term current use of insulin Social History Tobacco Use Types Packs/Day Years Used Date Smoking Tobacco: Former Cigarettes 0.3 3 0 12/31/1986 - 12/31/1989 Smokeless Tobacco: Never Alcohol Use Standard Drinks/Week Comments Yes 3 (1 standard drink = 0.6 oz pur e alcohol) [facility] Inpatient Questions Answer Date Recorded Does [...] * Patient Instructions* Marjorie Holman, CANDE - 11/09/2022 12:30 PM EDT Bariatric Surgery Program First Post-operative Follow up visit Contact information: [facility] manager support: Aisha: [phone] and Anitha [phone] Dietitians: [phone] Surgeons/ nurse practitioners: [phone] Nurse line: [phone] Dear Melinda, Thank you for following up with the Bariatric Surgery Program at [facility]. Please review your medical note from today's [...] to 6:00 pm. Here's the link to [facility] Lab hours and locations, in case one of the other locations is more convenient for you: [email or web address] If you have labwork done by your primary home day care provider before that date, please have a copy [...] Blow dry area on low setting with dental chairside assistant. Apply absorbent powder such as Gold Melchor [...] such as Ibuprofen (Advil), Aleve (Naproxen), Excedrin, Margot-[place] should be avoided for at least the [...] Our post surgery support group meets at [facility] on the first Saturday of every month from 1:00 PM-2:00 PM, call to sign up! Nutrition and Activity apps- Baritastic, My Fitness Pal, Lose It, My Plate Internet resources: www.Wattvision www.Yeke Network Radio www.Busy MooseaBioMarker Strategies www.[employer]/blog [facility] facebook page: [email or web address].[email or web address]/[facility] Books & Magazines: - Recipes for Life After Weight Loss Surgery by Ivana Oscar - Shrink Yourself by Dr Crispin Loera - Eating Well - www.Anna Lozabai - Cooking Light- www.cookinglight.[employer] Anxiety: The Happiness Trap by Scott Miranda The Mindfulness and acceptance workbook for anxiety By Jewel Rdz. Mindful eating: What are you Hungry For? By Landen Dotson The Mindful Diet by Tatum Leon and the [facility] group. Emotional eating: End Emotional Eating by Mirian Callejas Calming the Emotional Storm Paula Snider documented in this encounter Progress Notes * Mirian Horowitz, RD - 11/09/2022 12:30 PM EDT Bariatric Nutrition Follow-up Visit Topics Discussed/Patient Concerns: ?? I don't know what to eat. ?? Shy on protein. Doing OK with fluids. 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 4 months post-op [place] Body Weight (based on BMI of 25): 146# 30-70% Excess Weight Loss: 168-198#; 50% Excess Weight Loss: 183# MEDICATIONS: Vitamin/Mineral Supplements (reported by patient): pt plans to purchase bariatric multivitamin and calcium citrate chews Supplement Type Brand/Form Dosage/Amount Frequency Comments Multivitamin Women's multi 1 pill daily Calcium Vitamin B12 Iron Vitamin D3 Food Allergies/Intolerances: none Tracking Intake: has Voltea cindy Daily Oral Intake: had ground meat, [...] 11/09/2022 12:30 PM EDT Bariatric [place] [address] Reason for visit: Bariatric Surgery Post Op [...] 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 Appetite : as expected, trying to meet [...] at this time, food/fluids etc. ?? See wildlife conservationist note re: recommendations regarding vitamin and mineral supplementation, fluid intake and exercise. RTC in 3 months for next BSP follow up visit, with labs.(ordered) Call/rtc sooner prn with questions/concerns or unexplained abdominal pain, prolonged nausea, vomiting or inability to hydrate Bariatric Program Summary report is availabe for patient's review via e-DH Marjorie Holman APRN [facility] Bariatric Surgery Program RECOMMENDED BARIATRIC SURGERY PROGRAM [...] If labwork is done by the primary home day care provider: please send a copy to the Bariatric Surgery Program, General Surgery Clinic, [facility], or fax [phone] documented in this encounter Plan of Treatment Upcoming Encounters Date Type Department Care Team (Late st Contact Info) Description 02/01/2025 2:15 PM EDT Office Visit Dermatology at [facility] [address] [place] [phone] Regina Rivas MD [facility] [place] [address] documented as of this encounter Goals Goal [...] track(2021 11:37 AM EDT) No Michelle Jaquez, ROTARY ROCK DRILLING MACHINE OPERATOR Note: Mindfulness/deep breathing practice to reduce cortisol -try for at least 10 minutes a day sleep Lifestyle On track(2021 11:37 AM EDT) No Michelle Jaquez, CANDE Note: Continue to work with sleep at [facility] Goal 7 hours of sleep nightly. Recommend consistent sleep and wake times, avoid electronics within one hour of sleep time movement Lifestyle No Michelle Jaquez, ROTARY ROCK DRILLING MACHINE OPERATOR Note: Exercise goal is 150 [...] * Vitamin B12 (02/15/2023 12:24 PM EDT) Pathologist [facility] Vitamin B-12 554 232 - 1,245 pg/mL [facility] Blood 02/15/2023 12:2 4 PM EDT 02/15/2023 12:35 PM EDT Narrative Resulting Agency Comment Spec In Lab Krystin Pushpa Dell ROTARY ROCK DRILLING MACHINE OPERATOR CHEMISTRY ORDERABL ES Performing Organization Address [facility]/ZIP Co de Phone Number [facility] [place] [address] * Vitamin D, 25-Hydroxy (02/15/2023 12:24 PM EDT) Pathologist [facility] 25-OH Vit D Total 37 21 - 100 ng/mL [facility] 25-OH Vit D Interp Sufficient [facility] Blood 02/15/2023 12:2 4 PM EDT 02/15/2023 12:35 PM EDT Narrative Resulting Agency Comment Spec In Lab Krystin E Dell ROTARY ROCK DRILLING MACHINE OPERATOR CHEMISTRY ORDERABL ES Performing Organization Address [facility]/ZIP Co de Phone Number [facility] [place] [address] * Vitamin B1, whole blood (02/15/2023 12:24 PM EDT) Pathologist [facility] Vit B1 Lvl WB 128 70 - 180 nmol/L [facility] Comment: ADDITIONAL INFORMATION This test was developed and its performance characteristics determined by [facility] in a manner consistent with CLIA requirements. This test has not been cleared or approved by the U.S. Food and Drug Administration. Test Performed by: [address] [address] [place] [address] Tech: Jona Marti M.D. Ph.D.; CLIA# [id number] Blood 02/15/2023 12:2 4 PM EDT 02/15/2023 1:03 PM EDT Narrative Resulting Agency Comment Spec In Lab Krystin E Dell ROTARY ROCK DRILLING MACHINE OPERATOR CHEMISTRY ORDERABL ES Performing Organization Address City/[facility]/ZIP Co de Phone Number [facility] [place] [place] [address] * PTH (02/15/2023 12:24 PM EDT) PTH 28 15 - 65 pg/mL [facility] Blood 02/15/2023 12:2 4 PM EDT 02/15/2023 12:35 PM EDT Narrative Resulting Agency Comment Spec In Lab Krystin E Dell ROTARY ROCK DRILLING MACHINE OPERATOR CHEMISTRY ORDERABL ES Performing Organization Address [facility] Co de Phone Number [facility] [place] [address] * (ABNORMAL) Iron and TIBC (02/15/2023 12:24 PM EDT) Iron 60 30 - 150 mcg/dL [facility] TIBC 241(L) 250 - 450 mcg/dL [facility] Iron Saturation 25 20 - 50 % [facility] Blood 02/15/2023 12:2 4 PM EDT 02/15/2023 12:35 PM EDT Narrative Resulting Agency Comment Spec In Lab Krystin E Tucker ROTARY ROCK DRILLING MACHINE OPERATOR CHEMISTRY ORDERABL ES Performing Organization Address City/[facility] Co de Phone Number [facility] [place] [address] * Hemogram (02/15/2023 12:24 PM EDT) WBC 8.6 4.0 - 9.5 x10(3)/mcL [facility] RBC 4.29 4.00 - 5.21 x10(6)/[facility] Hemoglobin 12.6 11.7 - 15.5 g/dL [facility] Hematocrit 37.8 35.7 - 45.8 % [facility] MCV 88.1 82.6 - 94.4 fL [facility] MCH 29.4 27.1 - 32.0 pg [facility] MCHC 33.3 31.7 - 35.0 g/dL [facility] Platelets 261 145 - 357 x10(3)/[facility] RDWSD 44.0 37.0 - 46.0 fL [facility] RDWCV 13.7 11.5 - 14.1 % [facility] MPV 12.0 7.6 - 12.9 fL [facility] nRBC % Auto 0.0 % [facility] nRBC Abs Auto 0.000 0.000 - 0.000 x10(3)/[facility] Blood 02/15/2023 12:2 4 PM EDT 02/15/2023 12:35 PM EDT Narrative Resulting Agency Comment Spec In Lab Krystin E Tucker ROTARY ROCK DRILLING MACHINE OPERATOR HEMATOLOGY ORDERAB LES Performing Organization Address City/[facility]/ZIP Co de Phone Number [facility] [place] [address] * Folate, serum (02/15/2023 12:24 PM EDT) Folate Lvl >20.0 4.8 - 24.2 ng/mL [facility] Blood 02/15/2023 12:2 4 PM EDT 02/15/2023 12:35 PM EDT Narrative Resulting Agency Comment Spec In Lab Krystin E Tucker ROTARY ROCK DRILLING MACHINE OPERATOR CHEMISTRY ORDERABL ES Performing Organization Address City/[facility]/ZIP Co de Phone Number [facility] [place] [address] * Comprehensive metabolic panel (non-fasting) (02/15/2023 12:24 PM EDT) Glucose Lvl 151 65 - 199 mg/dL [facility] Comment:Diabetes: >=200 mg/d L plus symptoms BUN 8 8 - 18 mg/dL [facility] Creatinine 0.70 0.70 - 1.20 mg/dL [facility] Sodium 143 135 - 145 mmol/L [facility] Potassium 3.6 3.5 - 5.0 mmol/L [facility] Comment: Please note: ??Patients with WBC >100,000 may have falsely elevated Potassium levels. ??For accurate Potassium quantification in these patients send serum separator tube (gold top) for subsequent determinations. ??Contact the Clinical Chemistry Laboratory if there are any questions. Chloride 106 98 - 107 mmol/L [facility] CO2 25 22 - 31 mmol/L [facility] Anion Gap 12 5 - 15 mmol/L [facility] Calcium 9.6 8.5 - 10.5 mg/dL [facility] Total Protein 6.8 6.1 - 8.0 g/dL [facility] Albumin 4.4 3.2 - 5.2 g/dL [facility] AST 19 0 - 30 unit/L [facility] ALT 17 0 - 30 unit/L [facility] Alk Phos 65 35 - 105 unit/L [facility] Total Bilirubin 0.4 0.2 - 1.3 mg/dL [facility] Estimated GFR 98 >=60 mL/min/1. 73 m?? [facility] Comment: This patient's estimated [...] Agency Comment Spec In Lab Krystin E Tucker ROTARY ROCK DRILLING MACHINE OPERATOR CHEMISTRY ORDERABL ES Performing Organization Address [facility] Co de Phone Number [facility] [place] [address] * Ferritin (02/15/2023 12:24 PM EDT) [facility] Signature Ferritin 212 30 - 400 ng/mL [facility] Comment: Pediatric reference ranges not verified at [facility], interpret with caution. Reference ranges for females greater than 50 years of age approach values for men, i.e., 30-400 ng/mL. Blood 02/15/2023 12:2 4 PM EDT 02/15/2023 12:35 PM EDT Narrative Resulting Agency Comment Spec In Lab Krystin Zuñigalding ROTARY ROCK DRILLING MACHINE OPERATOR CHEMISTRY ORDERABL ES Performing Organization Address [facility] Co de Phone Number [facility] [place] [address] documented in this encounter Visit Diagnoses Diagnosis S/P bariatric surgery Bariatric surgery status Disorder of iron metabolism Other disorders of iron metabolism Type 2 diabetes mellitus without complication, with long-term current use of insulin documented in this encounter Care Teams Knowledge Management Advisor Relationship Specialty Start Date End Date Carolynn Wisdom APRN [address] [place] [address] [address] [place] [address] PCP - General Family Medicine 03/08/20 documented as of this encounter
--- OUTSIDE RECORDS SUMMARY | 2024-01-29 15:37 | XMS_ITS | Encounter Summary ---
Author Organization [facility] Address [facility] [place] [address] Care Team Providers Care Atm Manager Name Role Phone Carolynn Wisdom APRN Primary Care Provider [phone] Encounter Details Date Type Department Care Team [...] 2:15 PM EDT Office Visit Dermatology at [facility] [address] [place] [address] Regina Rivas MD [facility] [place] [address] documented as of this encounter Goals Goal [...] track(2021 11:37 AM EDT) No Michelle Jaquez, HOSPITALITY INTERNSHIP Note: Mindfulness/deep breathing practice to reduce cortisol [...] on filedocumented in this encounter Care Teams Atm Manager Relationship Specialty Start Date End Date Carolynn Wisdom APRN [address] [place] [address] PCP - General Family Medicine 03/08/20 documented as of this encounter
--- OUTSIDE RECORDS SUMMARY | 2024-01-29 15:37 | XMS_ITS | Encounter Summary ---
Author Organization [facility] [place] [address] Care Team Providers Care Internet Ecommerce Specialist Name Role Phone Carolynn Wisdom [facility] Primary Care Provider Reason for Visit * Reason Comments Medication Management Patient Education Encounter Details Date Type Department Care Team (Late st Contact Info) Description 01/31/2023 Specialty [place] [address] Daylin Alba RPH Social History Tobacco Use Types Packs/Day Years Used Date Smoking Tobacco: Former Cigarettes 0.3 3 0 12/31/1986 - 12/31/1989 Smokeless Tobacco: Never Alcohol Use Standard Drinks/Week Comments Yes 3 (1 standard drink = 0.6 oz pur e alcohol) [facility] Inpatient Questions Answer Date Recorded [...] Requirements: no Medication Reconciliation Discrepancies (compared to [facility] med list) yes - patient says she [...] specialty services: Yes Patient accepted offer to admissions counselor: select all, adherence/missed doses, cost of [...] patient have a primary child day care teacher: No Does patient have an emergency contact on file: Yes Does patient need referral to social services counselor: No Does patient need referral to advocacy [...] Yes Date Confirmed: 11/23/20 Confirmation: Signature in [facility] Specialty Med Adherence Patient Demonstrates [...] were made at the appointment and that [facility] is[facility]iding recommendations (summary located at top of note) for provider review and follow up. Daylin Alba RPH 01/31/23 11:08 AM documented in this encounter Plan of Treatment Upcoming Encounters Date Type Department Care Team (Late st Contact Info) Description 02/01/2025 2:15 PM EDT Office Visit Dermatology at [facility] [address] [place] [phone] Regina Rivas MD [facility] DR [place] [address] documented as of this encounter Goals Goal [...] time movement Lifestyle No Michelle Jaquez, [facility] Note: Exercise goal is 150 -300 min [...] on filedocumented in this encounter Care Teams Internet Ecommerce Specialist Relationship Specialty Start Date End Date Carolynn Wisdom APRN [address] [place] [address] PCP - General Family Medicine 03/08/20 documented as of this encounter
--- OUTSIDE RECORDS SUMMARY | 2024-01-29 15:37 | XMS_ITS | Encounter Summary ---
Author Organization [facility] Address [facility] [place] [address] Care Team Providers Care Outcome Analyst Name Role Phone Carolynn Wisdom APRN [...] at [facility] [address] [place] [phone] Regina Rivas MD [facility] [place] [address] documented as of this encounter Goals Goal [...] track(2021 11:37 AM EDT) No Michelle Jaquez, INVENTORY ASSOCIATE AND DRIVER Note: Mindfulness/deep breathing practice to reduce cortisol -try for at least 10 minutes a day sleep Lifestyle On track(2021 11:37 AM EDT) Michelle Tai, CANDE Note: Continue to work with sleep at [facility] Goal 7 hours of sleep nightly. [...] on filedocumented in this encounter Care Teams Outcome Analyst Relationship Specialty Start Date End Date Carolynn Wisdom APRN [address] [place] [address] PCP - General Family Medicine 03/08/20 documented as of this encounter
--- OUTSIDE RECORDS SUMMARY | 2024-01-29 15:37 | XMS_ITS | Encounter Summary ---
Author Organization [facility] Address [facility] [place] [address] Care Team Providers Care Seo Engineer Name Role Phone Carolynn Wisdom SHOW HOST Primary Care Provider [phone] Reason for Visit * Reason Comments Psoriasis Encounter Details Date Type Department Care Team (Late st Contact Info) Description 01/13/2024 3:15 PM EDT Office Visit Dermatology at [facility] [address] [place] [address] Regina Rivas MD [facility] [place] [address] Inverse psoriasis; High risk medication use Social [...] DEPARTMENT OF DERMATOLOGY Medical Dermatology Clinic Provider: Regina Rivas MD Patient's preferred name Melinda Preferred [...] reaction to hiking boots/socks. Last visit at [facility] Derm: 10/01/2022 Last visit with this provider: [...] yr for psoriasis f/u []Note routed to racing secretary []Recall has been placed in scheduling system [x]Appointment scheduled at checkout Scribe attestation: Gretel Tucker RN who has performed the documentation for this encounter in the presence of and acting as a scribe for Regina Rivas MD. I performed the above scribed service and agree with the accuracy of the documentation in this encounter. Reviewed and signed by: Regina Rivas MD Dermatology [facility] documented in this encounter Plan of Treatment Upcoming Encounters Date Type Department Care Team (Late st Contact Info) Description 02/01/2025 2:15 PM EDT Office Visit Dermatology at [facility] [address] [place] [address] Regina Rivas MD [facility] [place] [address] Scheduled Orders Name Type Priority Associated Diagnoses [...] Continue to work with sleep at [facility] Goal 7 hours of sleep nightly. Recommend [...] medications documented in this encounter Care Teams Seo Engineer Relationship Specialty Start Date End Date Carolynn Wisdom APRN [address] [place] [address] PCP - General Family Medicine 03/08/20 documented as of this encounter
--- OUTSIDE RECORDS SUMMARY | 2024-01-29 15:37 | XMS_ITS | Encounter Summary ---
Author Organization Formerly [facility] [place] [address] Care Team Providers Care Compliance Specialist Name Role Phone Carolynn Wisdom APRN Primary Care Provider Encounter Details Date Type Department Care Team (Latest Contact Info) Description 02/15/2023 11:50 AM EDT Laboratory Appointment Lab [address] [place] [address] S/P bariatric surgery; Disorder of iron metabolism [...] 2:15 PM EDT Office Visit Dermatology at [facility] [address] [place] [address] Regina Rivas MD [facility] [place] [address] documented as of this encounter Goals Goal [...] EDT) Ferritin 212 30 - 400 ng/mL [facility] Comment: Pediatric reference ranges not verified at [facility], interpret with caution. Reference ranges for females greater than 50 years of age approach values for men, i.e., 30-400 ng/mL. Blood 02/15/2023 12:2 4 PM EDT 02/15/2023 12:35 PM EDT Narrative Resulting Agency Comment Spec In Lab Krystin E Dell PUTTY MAKER CHEMISTRY ORDERABL ES [facility] [place] [address] * Comprehensive metabolic panel (non-fasting) (02/15/2023 12:24 PM EDT) Pathologist [facility] Glucose Lvl 151 65 - 199 mg/dL [facility] Comment:Diabetes: >=200 mg/d L plus symptoms BUN 8 8 - 18 mg/dL [facility] Creatinine 0.70 0.70 - 1.20 mg/dL [facility] Sodium 143 135 - 145 mmol/L [facility] Potassium 3.6 3.5 - 5.0 mmol/L [facility] Comment: Please note: ??Patients with WBC >100,000 may have falsely elevated Potassium levels. ??For accurate Potassium quantification in these patients send serum separator tube (gold top) for subsequent determinations. ??Contact the Clinical Chemistry Laboratory if there are any questions. Chloride 106 98 - 107 mmol/L [facility] CO2 25 22 - 31 mmol/L [facility] Anion Gap 12 5 - 15 mmol/L [facility] Calcium 9.6 8.5 - 10.5 mg/dL [facility] Total Protein 6.8 6.1 - 8.0 g/dL [facility] Albumin 4.4 3.2 - 5.2 g/dL [facility] AST 19 0 - 30 unit/L [facility] ALT 17 0 - 30 unit/L [facility] Alk Phos 65 35 - 105 unit/L [facility] Total Bilirubin 0.4 0.2 - 1.3 mg/dL [facility] Estimated GFR 98 >=60 mL/min/1. 73 m?? [facility] Comment: This patient's estimated [...] Comment Spec In Lab Krystin E Dell PUTTY MAKER CHEMISTRY ORDERABL ES Performing Organization Address [facility]/ZIP Co de Phone Number [facility] [place] [address] * Folate, serum (02/15/2023 12:24 PM EDT) Folate Lvl >20.0 4.8 - 24.2 ng/mL [facility] Blood 02/15/2023 12:2 4 PM EDT 02/15/2023 12:35 PM EDT Narrative Resulting Agency Comment Spec In Lab Krystin E [place] PUTTY MAKER CHEMISTRY ORDERABL ES Performing Organization Address City/[facility]/ZIP Co de Phone Number [facility] [place] [address] * Hemogram (02/15/2023 12:24 PM EDT) WBC 8.6 4.0 - 9.5 x10(3)/[facility]ORAT[facility] RBC 4.29 4.00 - 5.21 x10(6)/[facility] Hemoglobin 12.6 11.7 - 15.5 g/dL [facility] Hematocrit 37.8 35.7 - 45.8 % [facility] MCV 88.1 82.6 - 94.4 [facility] LABORATORY MCH 29.4 27.1 - 32.0 pg [facility] MCHC 33.3 31.7 - 35.0 g/dL [facility] Platelets 261 145 - 357 x10(3)/[facility] RDWSD 44.0 37.0 - 46.0 [facility] RDWCV 13.7 11.5 - 14.1 % [facility] MPV 12.0 7.6 - [address] [facility] LABORATORY nRBC % Auto 0.0 % [facility] nRBC Abs Auto 0.000 0.000 - 0.000 x10(3)/[facility] Blood 02/15/2023 12:2 4 PM EDT 02/15/2023 12:35 PM EDT Narrative Resulting Agency Comment Spec In Lab Krystin E Dell PUTTY MAKER HEMATOLOGY ORDERAB LES Performing Organization Address City/State/[facility] Co de Phone Number [facility] [place] [address] * (ABNORMAL) Iron and TIBC (02/15/2023 12:24 PM EDT) Iron 60 30 - 150 mcg/dL [facility] TIBC 241(L) 250 - 450 mcg/dL [facility] Iron Saturation 25 20 - 50 % [facility] Blood 02/15/2023 12:2 4 PM EDT 02/15/2023 12:35 PM EDT Narrative Resulting Agency Comment Spec In Lab Krystin E [place] PUTTY MAKER CHEMISTRY ORDERABL ES Performing Organization Address City/[facility]/ZIP Co de Phone Number [facility] [place] [address] * PTH (02/15/2023 12:24 PM EDT) PTH 28 15 - 65 pg/mL [facility] Blood 02/15/2023 12:2 4 PM EDT 02/15/2023 12:35 PM EDT Narrative Resulting Agency Comment Spec In Lab Krystin E Dell PUTTY MAKER CHEMISTRY ORDERABL ES Performing Organization Address [facility] de Phone Number [facility] [place] [address] * Vitamin B1, whole blood (02/15/2023 12:24 PM EDT) Vit B1 Lvl WB 128 70 - 180 nmol/L [facility] Comment: ADDITIONAL INFORMATION This test was developed and its performance characteristics determined by [facility] in a manner consistent with CLIA requirements. This test has not been cleared or approved by the U.S. Food and Drug Administration. Test Performed by: [facility] - [address] [address] Wireless Engineer: Jona Marti M.D. Ph.D.; CLIA# [id number] Blood 02/15/2023 12:2 4 PM EDT 02/15/2023 1:03 PM EDT Narrative Resulting Agency Comment Spec In Lab Krystin E [place] PUTTY MAKER CHEMISTRY ORDERABL ES Performing Organization Address [facility] Co de Phone Number [facility] [place] [address] * Vitamin D, 25-Hydroxy (02/15/2023 12:24 PM EDT) 25-OH Vit D Total 37 21 - 100 ng/mL [facility] 25-OH Vit D Interp Sufficient [facility] Blood 02/15/2023 12:2 4 PM EDT 02/15/2023 12:35 PM EDT Narrative Resulting Agency Comment Spec In Lab Krystin E Dell PUTTY MAKER CHEMISTRY ORDERABL ES Performing Organization Address [facility]/ZIP Co de Phone Number [facility] [place] [address] * Vitamin B12 (02/15/2023 12:24 PM EDT) Vitamin B-12 554 232 - 1,245 pg/mL [facility] Blood 02/15/2023 12:2 4 PM EDT 02/15/2023 12:35 PM EDT Narrative Resulting Agency Comment Spec In Lab Krystin E Dell PUTTY MAKER CHEMISTRY ORDERABL ES Performing Organization Address [facility] Co de Phone Number [facility] [place] [address] documented in this encounter Visit Diagnoses Diagnosis S/P bariatric surgery Bariatric surgery status Disorder of iron metabolism Other disorders of iron metabolism documented in this encounter Care Teams Compliance Specialist Relationship Specialty Start Date End Date Carolynn Wisdom APRN [address] [place] [address] PCP - General Family Medicine 03/08/20 documented as of this encounter
--- OUTSIDE RECORDS SUMMARY | 2024-01-29 15:37 | XMS_ITS | Encounter Summary ---
Author Organization [facility] Address [facility] [place] [address] Care Team Providers Care Ux Researcher Name Role Phone Carolynn Wisdom AUTOMOTIVE ARTIST Primary Care Provider [phone] Encounter Details Date Type Department Care Team (Latest Contact Info) Description 12/02/2023 Specialty [place] [phone] Viridiana Lemus RPH Started Clinical Assessment - 10 month recurrence (ustekinumab) for Dermatology Social History Tobacco Use Types Packs/Day Years Used Date Smoking Tobacco: Former Cigarettes 0.3 3 0 12/31/1986 - 12/31/1989 Smokeless Tobacco: Never Alcohol Use Standard Drinks/Week Comments Yes 3 (1 standard drink = 0.6 oz pur e alcohol) [facility] Inpatient Questions Answer Date Recorded Does Anyone [...] 2:15 PM EDT Office Visit Dermatology at [facility] [address] [place] [address] Regina Rivas MD [facility] [place] [address] documented as of this encounter Goals Goal [...] on filedocumented in this encounter Care Teams Ux Researcher Relationship Specialty Start Date End Date Carolynn Wisdom APRN [address] [place] [address] PCP - General Family Medicine 03/08/20 documented as of this encounter
--- OUTSIDE RECORDS SUMMARY | 2024-01-29 15:37 | XMS_ITS | Encounter Summary ---
Author Organization [facility] Address [facility] [place] [address] Care Team Providers Care Mold Closer Helper Name Role Phone Carolynn Wisdom APRN Primary Care Provider Encounter Details Date Type Department Care Team (Late st Contact Info) Description 04/23/2023 Refill Dermatology at [facility] [address] [place] [phone] Louise Curiel MD [facility] [address] [place] [address] Social History Tobacco Use Types Packs/Day Years [...] [facility] [address] [place] [address] Regina Rivas MD [facility] [place] [address] documented as of this encounter Goals Goal [...] on filedocumented in this encounter Care Teams Mold Closer Helper Relationship Specialty Start Date End Date Carolynn Wisdom APRN [address] [place] [address] PCP - General Family Medicine 03/08/20 documented as of this encounter
--- OUTSIDE RECORDS SUMMARY | 2024-01-29 15:37 | XMS_ITS | Encounter Summary ---
Author Organization [facility] [place] [address] Care Team Providers Care Tutoring Manager Name Role Phone Carolynn Wisdom APRN Primary Care Provider Reason for Visit * Reason Comments Medication Management Specialty Refill Management Encounter Details Date Type Department Care Team (Late st Contact Info) Description 11/13/2022 Specialty [place] [address] Oscar Mariano, [facility] Social History Tobacco Use Types Packs/Day Years Used Date Smoking Tobacco: Former Cigarettes 0.3 3 0 12/31/1986 - 12/31/1989 Smokeless Tobacco: Never Alcohol Use Standard Drinks/Week Comments Yes 3 (1 standard drink = 0.6 oz pur e alcohol) [facility] Inpatient Questions Answer Date Recorded Does Anyone [...] this encounter Progress Notes * Oscar Mariano [facility] - 11/13/2022 5:20 PM EDT Clinical Management Plan: Refill Specialty Pharmacy Consultation; Oscar Mariano [facility] Comprehensive Medication Management (CMM) Melinda Goncalves Ms. [...] beneficiary Provider: plan sponsor pharmacist [facility] Follow-up Time Spent: 1-15 min Method of Contact: by telephone Cognitive Ability: good Allergies and Drug intolerance: No Known Allergies Medication Reconciliation Discrepancies (compared to [facility] med list) -none Specialty Pharmacy Refill [...] were made at the appointment and that [facility] is providing recommendations (summary located at top of note) for provider review and follow up. Oscar Mariano RPH 11/13/22 5:25 PM documented in this encounter Plan of Treatment Upcoming Encounters Date Type Department Care Team (Late st Contact Info) Description 02/01/2025 2:15 PM EDT Office Visit Dermatology at [place] [address] [place] [phone] Regina Rivas MD [facility] [place] [address] documented as of this encounter Goals Goal [...] on filedocumented in this encounter Care Teams Tutoring Manager Relationship Specialty Start Date End Date Carolynn Wisdom APRN [address] [place] [address] [address] [facility] [address] [place] [address] PCP - General Family Medicine 03/08/20 documented as of this encounter
--- OUTSIDE RECORDS SUMMARY | 2024-01-29 15:38 | XMS_ITS | Encounter Summary ---
Author Organization [facility] [place] [address] Care Team Providers Care Pipe Organ Tuner And Repairer Name Role Phone MelodieCarolynn judd CANDE Primary Care Provider Encounter Details Date Type Department Care Team (Late st Contact Info) Description 10/03/2022 1:00 PM EDT Office [place] [address] Marjorie Holman, SOCIAL WELFARE ADMINISTRATOR [facility] [place] [address] Mirian Horowitz, RD [facility] [place] [address] Class 2 severe obesity due to excess [...] Patient Instructions * Patient Instructions* Marjorie Holman, SOCIAL WELFARE ADMINISTRATOR - 10/03/2022 1:00 PM EDT [facility] BARIATRIC SUPPORT TEAM CONTACT NUMBERS (Mon-Fri 8am - 5pm): General Surgery and Bariatric Surgery [phone] Bariatric Surgeons: Doctors. Fatima [phone] Technology Sales Specialist: [phone] Dietitians: [phone] Outside of regular business hours, including weekends and holidays: Ask for General Surgery resident adult basic education teacher [phone] BEFORE YOUR SURGERY: Questions for your doctor, specialist or pharmacist: Ask your doctor about medication suggestions if you currently take medications that are larger than the size of a tylenol or calcium pill. Large pills need to be crushed (if permitted by the drug color straining bag washer), taken in smaller size pills, or taken [...] weeks at the General Surgery Outpatient Clinic (Automotive Repair Technician 4L, [facility]). 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 (Space 2 hours apart from Calcium.) Take bariatric supplements as directed on the label PROTEIN SUPPLEMENTS At least 20 g protein per serving (1 scoop or ???[id number]?? ) Under 200 calories for ???[id number]?? Under 100 calories per scoop for powder [...] track and in control TIPS FOR SUCCES CHEW, CHEW, CHEW!!! Add one new food at a [...] The prescription is typically sent to the [facility] Pharmacy at discharge. Take the medication to [...] in a recliner more comfortable early post-surgery. [facility] Post-Bariatric Surgery Events Calendar Date Time period [...] for 10 days to prevent blood clots. milk pickup truck driver prescription at [facility] Pharmacy 2 weeks post surgery If you [...] post-op 3 weeks: visits with surgeon or MACHINE LOADER and dietitian Bring diet logs and complete [...] Hill's esophagus 4 months: Visits with RD /MACHINE LOADER Bring complete list of medications and supplements including dose and type (or take photos) Have lab work done before your appointment. Bring copies of any labwork that may have been done by your PCP 6.5 months Stop Ursodiol. No refills are needed. 12 [address]/MACHINE LOADER Bring complete list of medications and supplements including dose and type (or take photos) Have lab work done before your appointment. Bring copies of any labwork that may have been done by your PCP* 2 years and yearly for life visits with RD/MACHINE LOADER Bring complete list of medications and supplements including dose and type (or take photos) Have lab work done before your appointment. Bring copies of any labwork that may have been done by your PCP Abbreviations: RD: registered dietitian. MACHINE LOADER: nurse practitioner documented in this encounter Progress Notes * Marjorie Holman APRN - 10/03/2022 1:00 PM EDT BARIATRIC SURGERY PROGRAM [place], [place] [address] Reason for visit: [facility] for up coming bariatric surgery Melinda attended a comprehensive group pre-operative class today, which included discussion of pre and post operative instructions included in the [facility] Bariatric Surgery Program Education Handbook. The nutrition component of the class was taught by the [facility] [address]. Patient completed health update form. No [...] Pt previously attended a Introduction to the [facility] Bariatric Surgery Program seminar,a two hour meeting that provides a program overview as well as expectations. The [facility] Bariatric Surgery Program Educational seminar requirement has [...] surgery and post-op routine care/ locations: Admissions/SDP/PACU/ [place] units ?? medications that increase the risk [...] through dieting have been unsuccessful over the industrial ecologist. Advised patient that bariatric surgery is a [...] 2:15 PM EDT Office Visit Dermatology at [address] [place] [address] Regina Rivas MD [facility] [address] [place] [address] documented as of this encounter Goals Goal [...] repair documented in this encounter Care Teams Pipe Organ Tuner And Repairer Relationship Specialty Start Date End Date Carolynn Wisdom APRN [address] [place] [address] PCP - General Family Medicine 03/08/20 documented as of this encounter
--- OUTSIDE RECORDS SUMMARY | 2024-01-29 15:38 | XMS_ITS | Encounter Summary ---
Author Organization [facility] [place] [address] Care Team Providers Care Paper Tube Machine Operator Name Role Phone Carolynn Wisdom CANDE Primary Care Provider Encounter Details Date Type Department Care Team (Late st Contact Info) Description 10/03/2022 3:55 PM EDT Laboratory Appointment Lab [address] [place] [address] Social History Tobacco Use Types Packs/Day Years [...] [facility] [address] [place] [address] Regina Rivas MD [facility] [place] [address] documented as of this encounter Goals Goal [...] track(2021 11:37 AM EDT) No Michelle Jaquez, CARBONATION EQUIPMENT OPERATOR Note: Mindfulness/deep breathing practice to reduce cortisol -try for at least 10 minutes a day sleep Lifestyle On track(2021 11:37 AM EDT) No Michelle Jaquez, CANDE Note: Continue to work with sleep at [facility] Goal 7 hours of sleep nightly. Recommend consistent sleep and wake times, avoid electronics within one hour of sleep time movement Lifestyle No Michelle Jaquez, CARBONATION EQUIPMENT OPERATOR Note: Exercise goal is 150 -300 [...] D Total 38 21 - 100 ng/mL [facility] 25-OH Vit D Interp Sufficient [facility] Blood Venous Draw / Unknown 10/03/2022 4:02 PM EDT 10/03/2022 4:49 PM EDT Narrative Resulting Agency Comment Spec In Lab Marjorie Holman CARBONATION EQUIPMENT OPERATOR CHEMISTRY ORDERA BLES [facility] [place] [address] * Vitamin B12 (10/03/2022 4:02 PM EDT) Pathologist [facility] Vitamin B-12 273 232 - 1,245 pg/mL [facility] Blood Venous Draw / Unknown 10/03/2022 4:02 PM EDT 10/03/2022 4:49 PM EDT Narrative Resulting Agency Comment Spec In Lab Marjorie Holman APRN CHEMISTRY ORDERA BLES Performing Organization Address [facility]/ZIP Co de Phone Number [facility] [place] [address] * Vitamin B1, whole blood (10/03/2022 4:02 PM EDT) [facility] Vit B1 Lvl WB 155 70 - 180 nmol/L [facility] Comment: ADDITIONAL INFORMATION This test was developed and its performance characteristics determined by [facility] in a manner consistent with CLIA requirements. This test has not been cleared or approved by the U.S. Food and Drug Administration. Test Performed by: [facility] - [address] [address] Aeronautical Project Engineer: Jona Marti M.D. Ph.D.; CLIA# [id number] Blood Venous Draw / Unknown 10/03/2022 4:02 PM EDT 10/04/2022 10:44 AM EDT Narrative Resulting Agency Comment Spec In Lab Marjorie Holman APRN CHEMISTRY ORDERA BLES Performing Organization Address City/[facility]/ZIP Co de Phone Number [facility] [place] [address] * PTH (10/03/2022 4:02 PM EDT) [facility] PTH 26 15 - 65 pg/mL [facility] Blood Venous Draw / Unknown 10/03/2022 4:02 PM EDT 10/03/2022 4:50 PM EDT Narrative Resulting Agency Comment Spec In Lab Marjorie Holman APRN CHEMISTRY ORDERA BLES [facility] [place] [address] * Hemogram (10/03/2022 4:02 PM EDT) WBC 7.6 4.0 - 9.5 x10(3)/[facility] RBC 4.42 4.00 - 5.21 x10(6)/[facility] Hemoglobin 12.7 11.7 - 15.5 g/dL [facility] Hematocrit 37.9 35.7 - 45.8 % [facility] MCV 85.7 82.6 - 94.4 [facility] MCH 28.7 27.1 - 32.0 pg [facility] MCHC 33.5 31.7 - 35.0 g/dL [facility] Platelets 291 145 - 357 x10(3)/[facility] RDWSD 41.4 37.0 - 46.0 [facility] RDWCV 13.2 11.5 - 14.1 % [facility] MPV 10.6 7.6 - 12.9 [facility] nRBC % Auto 0.0 % [facility] nRBC Abs Auto 0.000 0.000 - 0.000 x10(3)/[facility] Blood Venous Draw / Unknown 10/03/2022 4:02 PM EDT 10/03/2022 4:50 PM EDT Narrative Resulting Agency Comment Spec In Lab Marjorie Holman APRN HEMATOLOGY ORDER TING Performing Organization Address City/[facility]/ZIP Co de Phone Number [facility] [place] [address] * (ABNORMAL) Iron and TIBC (10/03/2022 4:02 PM EDT) [facility] Iron 55 30 - 150 mcg/dL [facility] TIBC 246(L) 250 - 450 mcg/dL [facility] Iron Saturation 22 20 - 50 % [facility] Blood Venous Draw / Unknown 10/03/2022 4:02 PM EDT 10/03/2022 4:49 PM EDT Narrative Resulting Agency Comment Spec In Lab Marjorie Holman APRN CHEMISTRY ORDERA BLES Performing Organization Address City/[facility]/ZIP Co de Phone Number [facility] [place] [address] * Folate, serum (10/03/2022 4:02 PM EDT) [facility] Folate Lvl >20.0 4.8 - 24.2 ng/mL [facility] Blood Venous Draw / Unknown 10/03/2022 4:02 PM EDT 10/03/2022 4:49 PM EDT Narrative Resulting Agency Comment Spec In Lab Marjorie Holman APRN CHEMISTRY ORDERA BLES Performing Organization Address [facility] Co de Phone Number [facility] [place] [address] * Ferritin (10/03/2022 4:02 PM EDT) [facility] Ferritin 255 30 - 400 ng/mL [facility] Comment: Pediatric reference ranges not verified at [facility], interpret with caution. Reference ranges for females greater than 50 years of age approach values for men, i.e., 30-400 ng/mL. Blood Venous Draw / Unknown 10/03/2022 4:02 PM EDT 10/03/2022 4:49 PM EDT Narrative Resulting Agency Comment Spec In Lab Marjorie Holman APRN CHEMISTRY ORDERA BLES [facility] [place] [address] * Comprehensive metabolic panel (non-fasting) (10/03/2022 4:02 PM EDT) Glucose Lvl 92 65 - 199 mg/dL [facility] Comment:Diabetes: >=200 mg/d L plus symptoms BUN 10 8 - 18 mg/dL [facility] Creatinine 0.74 0.70 - 1.20 mg/dL [facility] Sodium 140 135 - 145 mmol/L [facility] Potassium 3.8 3.5 - 5.0 mmol/L [facility] Comment: Please note: ??Patients with WBC >100,000 may have falsely elevated Potassium levels. ??For accurate Potassium quantification in these patients send serum separator tube (gold top) for subsequent determinations. ??Contact the Clinical Chemistry Laboratory if there are any questions. Chloride 102 98 - 107 mmol/L [facility] CO2 25 22 - 31 mmol/L [facility] Anion Gap 13 5 - 15 mmol/L [facility] Calcium 10.0 8.5 - 10.5 mg/dL [facility] Total Protein 7.2 6.1 - 8.0 g/dL [facility] Albumin 4.3 3.2 - 5.2 g/dL [facility] AST 22 0 - 30 unit/L [facility] ALT 20 0 - 30 unit/L [facility] Alk Phos 59 35 - 105 unit/L [facility] Total Bilirubin 0.4 0.2 - 1.3 mg/dL [facility] Estimated GFR 92 >=60 mL/min/1. 73 m?? [facility] Comment: This patient's estimated [...] Agency Comment Spec In Lab Marjorie Holman CARBONATION EQUIPMENT OPERATOR CHEMISTRY ORDERA BLES [facility] [place] [address] documented in this encounter Visit Diagnoses Not on filedocumented in this encounter Care Teams Paper Tube Machine Operator Relationship Specialty Start Date End Date Carolynn Wisdom APRN [address] [place] [address] PCP - General Family Medicine 03/08/20 documented as of this encounter
--- OUTSIDE RECORDS SUMMARY | 2024-01-29 15:38 | XMS_ITS | Encounter Summary ---
Author Organization [facility] Address [facility] [place] [address] Care Team Providers Care Rubber Mill Operator Name Role Phone Carolynn Wisdom PRIVATE SECTOR EXECUTIVE Primary Care Provider Encounter Details Date Type Department Care Team (Latest Contact Info) Description 04/17/2022 9:00 AM EDT TH Visit (TeleHealth) Weight and Wellness at [address] [address] Susan Mohan, PhD [facility] [place] [address] Eating disorder, unspecified type Social History Tobacco [...] N [facility] AT [address] [address] Dept: [phone] 04/17/2022 9:08 AM Melinda L Sacha is a 62 y.o. female who was [...] visit they were located at home in [place] Melinda Goncalves is aware that for any urgent matter they can call [phone].. RECOMMENDATION BASED ON PSYCHOLOGICAL EVALUATION YELLOW - [...] Dermatology at [facility] [address] [place] [address] Regina Rivas MD [facility] [place] [address] documented as of this encounter Goals Goal [...] a week -can use [employer] - 8/30/22 Lifestyle On track(2021 11:38 AM EDT) Yessy [...] type documented in this encounter Care Teams Rubber Mill Operator Relationship Specialty Start Date End Date Carolynn Wisdom APRN [address] [place] [address] PCP - General Family Medicine 03/08/20 documented as of this encounter
--- OUTSIDE RECORDS SUMMARY | 2024-01-29 15:38 | XMS_ITS | Encounter Summary ---
Author Organization [facility] [place] [address] Care Team Providers Care Room Worker Name Role Phone Carolynn Wisdom CANDE Primary Care Provider Encounter Details Date Type Department Care Team (Latest Contact Info) Description 07/24/2022 9:00 AM EST TH Visit (TeleHealth) [place] [address] Susan Mohan, PhD [facility] [place] [address] Eating disorder, unspecified type Social History Tobacco [...] BARIATRIC SURGERY PSYCHOLOY FOLLOW UP NOTE N [facility] WEIGHT AND WELLNESS AT [facility] [address] Dept: [phone] Loc: [phone] 07/23/2022 1:10 PM Melinda L Sacha is a 62 y.o. [...] visit they were located at home in [place]. Melinda Goncalves is aware that for any urgent matter they can call [phone].. RECOMMENDATION BASED ON PSYCHOLOGICAL EVALUATION GREEN LIGHT [...] well. Melinda reported that she purchased a [employer] has been working on with her kids. [...] 2:15 PM EDT Office Visit Dermatology at [facility] [address] [place] [address] Regina Rivas MD [facility] [place] [address] documented as of this encounter Goals Goal [...] time movement Lifestyle No Leonid, Michelle L, CERTIFIED [place] Note: Exercise goal is 150 -300 min [...] type documented in this encounter Care Teams Room Worker Relationship Specialty Start Date End Date Carolynn Wisdom APRN [address] [place] [address] PCP - General Family Medicine 03/08/20 documented as of this encounter
--- OUTSIDE RECORDS SUMMARY | 2024-01-29 15:38 | XMS_ITS | Encounter Summary ---
Author Organization [facility] [place] [address] Care Team Providers Care Clinical Trial Head Name Role Phone MelodieCarolynn judd CANDE Primary Care Provider Encounter Details Date Type Department Care Team (Late st Contact Info) Description 10/23/2022 Telephone [place] [phone] Mirian Resendiz, RN Social History Tobacco Use Types Packs/Day Years Used Date Smoking Tobacco: Former Cigarettes 0.3 3 0 12/31/1986 - 12/31/1989 Smokeless Tobacco: Never Alcohol Use Standard Drinks/Week Comments Yes 3 (1 standard drink = 0.6 oz pur e alcohol) [facility] Inpatient Questions Answer Date Recorded Does Anyone [...] has appointment on 10/29 and 11/09 with BRAILLE DUPLICATING MACHINE OPERATOR and RD Patient questions: no specific [...] [facility] [address] [place] [phone] Regina Rivas MD [facility] [place] [address] documented as of this encounter Goals Goal [...] to work with sleep at [facility] Goal 7 hours of sleep nightly. Recommend [...] on filedocumented in this encounter Care Teams Clinical Trial Head Relationship Specialty Start Date End Date Carolynn Wisdom APRN [address] [place] [address] PCP - General Family Medicine 03/08/20 documented as of this encounter
--- OUTSIDE RECORDS SUMMARY | 2024-01-29 15:38 | XMS_ITS | Encounter Summary ---
Author Organization [facility] Address [facility] [place] [address] Care Team Providers Care Asset Manager Name Role Phone Carolynn Wisdom CYTOLOGY TECHNOLOGIST Primary Care Provider Encounter Details Date Type [...] 2:15 PM EDT Office Visit Dermatology at [facility] [address] [place] [address] Regina Rivas MD [facility] [place] [address] documented as of this encounter Goals Goal [...] to work with sleep at [facility] Goal 7 hours of sleep [...] on filedocumented in this encounter Care Teams Asset Manager Relationship Specialty Start Date End Date Carolynn Wisdom APRN [address] [place], [place] [address]Y [facility] [address] [place] [address] PCP - General Family Medicine 03/08/20 documented as of this encounter
--- OUTSIDE RECORDS SUMMARY | 2024-01-29 15:38 | XMS_ITS | Encounter Summary ---
Author Organization Formerly [facility] [place] [address] Care Team Providers Care Performance Engineer Name Role Phone MelodieCarolynn judd CANDE Primary Care Provider [phone] Reason for Visit * Auth/Cert (Routine) Specialty [...] UPPER GI ENDOSCOPY Ronda Mckeon MD [facility] [place] [address] [facility] Referral ID Status Reason Start Date Expiration Date Visits Re quested Visits Authorized [id number] 1 1 Encounter Details Date Type Department Care Team (Latest Contact Info) Description 10/19/2022 6:52 AM EDT - 10/21/2022 12:30 PM EDT Hospital Encounter Surgical Unit Level 4 [place] [id number] Ronda Mckeon MD [facility] [place] [address] Discharge Disposition: Home Social History Tobacco Use [...] Center 11/09/2022 12:30 PM Marjorie Holman APRN [facility] 02/15/2023 12:30 PM Marjorie Holman APRN [facility] 07/11/2023 2:00 PM Karla Woody APRN [facility] Outpatient Services/Studies: No discharge procedures on file. Instructions Given to Patient at Discharge:. An After Visit Summary was printed and given to the patient. Patient Instructions BARIATRIC SURGERY DISCHARGE INFORMATION BARIATRIC SUPPORT TEAM CONTACT NUMBERS (Mon-Fri 8am - 5pm): General Surgery and Bariatric Surgery [phone] Bariatric Surgeons: Mike Davidson and Trus [phone] Sales Development Specialist: [phone] Dietitians: [phone] Outside of regular business hours, including weekends and holidays: Ask for General Surgery resident foreman/pile driving and erection [phone] Please note, this call will be answered [...] weeks at the General Surgery Outpatient Clinic (P[employer] Furnace Tender 4, [facility]). Future Appointments Date Time Provider Department Center 11/09/2022 12:30 PM Marjorie Holman APRN [facility] 02/15/2023 12:30 PM Marjorie Holman APRN [facility] 07/11/2023 2:00 PM Karla Woody APRN [facility] [address] BATHING AND WOUND CARE: ?? [...] for assistance to pay for this with [facility]. Go to www.[employer] and put in the prescription and the [...] Follow up with primary care provider or retail sales specialist in 1-2 weeks in order to [...] La Rosa MD 10/21/22 10:28 AM MISpager [phone] documented in this encounter Discharge Instructions * Patient Instructions* Halima De La Rosa MD - 10/19/2022 8:31 PM EDT Images from the original note were not included. BARIATRIC SURGERY DISCHARGE INFORMATION BARIATRIC SUPPORT TEAM CONTACT NUMBERS (Mon-Fri 8am - 5pm): General Surgery and Bariatric Surgery [phone] Bariatric Surgeons: Mike Davidson and Peter [phone] Sales Development Specialist: [phone] Dietitians: [phone] Outside of regular business hours, including weekends and holidays: Ask for General Surgery resident foreman/pile driving and erection [phone] Please note, this call will be answered [...] weeks at the General Surgery Outpatient Clinic (Pigment Furnace Tender 4L, [facility]). Future Appointments Date Time Provider Department Center 11/09/2022 12:30 PM Marjorie Holman APRN [facility] 02/15/2023 12:30 PM Marjorie Holman APRN [facility] 07/11/2023 2:00 PM aKrla Woody APRN [facility] [address] BATHING AND WOUND CARE: [...] for assistance to pay for this with [facility]. Go to www[employer] and put in the prescription and the [...] Follow up with primary care provider or retail sales specialist in 1-2 weeks in order to [...] Surgery 9:40 AM 10/20/22 MIS service pager: [phone] Associated attestation - oRnda Mckeon MD - 10/20/2022 1:11 PM EDT I have seen and examined the patient, reviewed the history documented and I agree with the details as written. I have reviewed the available, pertinent laboratory data and imaging. The assessment andplan were formulated in discussion with me and I agree with them as documented. Ronda Mckeon MD * Jewel Burnett, [facility] - 10/20/2022 7:12 AM EDT Respiratory Care Consult Note Melinda Goncalves 1960 [id number] 10/19/2022 6:52 AM Hospital Day: 1 Reason for Consult: Pt is post op Gastric Bypass with Hx of HEATHER and use of NIV History: Melinda Goncalves is a 62 y.o. female with a PMHx significant for HEATHER, who was admitted to [facility] for Gastric Bypass. Home NIV: Yes - [...] please contact the Respiratory Department at Pager #[phone]. * Halima De La Rosa MD - [...] @LAPAROSCOPIC GASTROPLASTY W/ DAVID-EN-Y CONSTRUCTION (WRVU 29.4): 97525 (CPT??) EGD, UPPER GI ENDOSCOPY ([facility] [[email or web address] 2.09): 74787 (CPT??) recovering as expected. Will be moving to floor bed shortly. Will need to ambulate to attempt void shortly. Continue post-op pathway Pain control Incentive spirometry Clear liquid diet Post-op nausea control Out of bed strict I/O, follow up void trial Will continue to monitor Halima De La Rosa MD 10/19/22 6:44 PM MISpager [phone] * Almaz Sanchez RN - 10/19/2022 4:16 PM EDT Break coverage 1929 Care assumed 1999 Hand off to MEGAN Iniguez [facility] * Wanda Guzman RN - [...] Rosa MD - 10/19/2022 8:25 AM EDT [facility] Minimally Invasive Surgery Pre-Operative H&P Patient evaluated day of surgery. Please see below for details of patient history as adapted from last clinic visit.No new findings or changes to medical history. No recent illnesses, cough, fever, diarrhea. Plan to proceed with surgery. Halima De La Rosa MD 10/19/22 8:25 AM MISpager [phone] [facility] Bariatric Surgery Evaluation ? Reason for [...] Has not attended a Introduction to the [facility] Bariatric Surgery Program seminar, a comprehensive two hour meeting that provides a program overview, education on bariatric surgeries offered at [facility], risks and benefits, as well as patient expectations and follow up. [facility] Educational seminars viewed 2. Bariatric Surgery Program evaluations with RD: Completed today 3. Program start weight 222 WT at visit #1: Wt & BMI By Encounter Date Flowsheet Row Office Visit from 07/31/2022 in General Surgery at [facility] Office Visit from 07/11/2022 [facility] Weight 99.8 kg (220 lb) 1 [...] allergy/sensitivity: denies ?? control plan: postmenopausal. ?? [facility] Preoperative Risk Assessment (negative if left blank): [...] Psychological evaluation done by Susan Mohan, PhD, [facility] Weight and Wellness : no contraindication to bariatric surgery from a psychological perspective. ? [facility] Initial Responses 07/31/2022 URICA - Readiness Score - WEL-SF Total Scores - PHQ-2 SubScore - GAD2 Subscore - MARIMAR 7 Total Scores - PROMIS 10 Physical Scores 42.3 PROMIS 10 Mental Scores 43.5 Total REAP-S Scores - TFEQ - Uncontrolled Eating (UE) - TFEQ-Cognitive Restraint (CR) - TFEQ-Emotional Eating - Food Insecurity Score 2 [place] Category I Result - [place] Category II Result - [place] Category III - [place] Sleep Apnea Total - Schooling Graduated from [...] surgery to be successful. Patient understands the retirement risks of vitamin deficiencies, internal hernias and [...] Dr. Mckeon to reach out to pt's binding nicker re: Stelara and confirm plan to schedule surgery for week 13 s/p last Stelara dose which was 07/10/22. ??? Continue CPAP use and compliance. Reviewed risks of untreated/undertreated HEATHER pre/rachel/post operatively. Consider repeat compliance report. ??? Preoperative Group Class ??? CBC and CMP within 6 months of surgery, per [facility] guidelines. [...] 10/03/2022 1:00 PM EDT BARIATRIC SURGERY PROGRAM [place] [id number] Reason for visit: [facility] for up coming bariatric surgery Melinda attended a comprehensive group pre-operative class today, which included discussion of pre and post operative instructions included in the [facility] Bariatric Surgery Program Education Handbook. The nutrition [...] Pt previously attended a Introduction to the [facility] Bariatric Surgery Program seminar,a two hour meeting that provides a program overview as well as expectations. The [facility] Bariatric Surgery Program Educational seminar requirement has [...] surgery and post-op routine care/ locations: Admissions/SDP/PACU///2 [place] units ?? medications that increase the risk [...] Mckeon MD - 10/19/2022 9:47 AM EDT [facility] Operative Note Patient Name: Melinda Goncalves : [id number] MR#: [id number] Case Date: 10/19/2022 Surgeon: Surgeon(s) and Role: [...] from the point of transection, and a xjdt-il-ggrs jejunojejunostomy was created between this point in the David limb and the end of the biliopancreatic limb with a 60mm strong load Endo ANDRZEJ stapler inserted through enterotomies created with the ultrasonic dissector. The resulting common enterotomy was closed with another firing of the 60mm strong load Endo ANDRZEJ stapler. The mesenteric defect was closed with a running 2-0 Surgidac suture. The Riverside drain was attached to the cut end [...] surrounding tissue in preparation for anastomosis. The [place] drain was identified in the lesser sac and used to deliver the Daivd limb. After appropriately orienting the David limb, [...] 2:15 PM EDT Office Visit Dermatology at [facility] [address] [place] [address] Regina Rivas MD [facility] [place] [address] documented as of this encounter Goals Goal [...] Continue to work with sleep at [facility] Goal 7 hours of sleep nightly. [...] 1:24 PM EDT Upper GI Endoscopy, Diagnostic (02549) 10/19/2022 9:12 AM EDT Morbid Obesity Lap Gastric Bypass/David-En-Y (49583) 10/19/2022 9:12 AM EDT Morbid Obesity POCT GLUCOSE Routine 10/19/2022 7:15 AM EDT UPPER GI ENDOSCOPY Routine 10/19/2022 6: 56 AM EDT LAPAROSCOPIC GASTROPLASTY, G\SURG Routine 10/19/2022 6:56 AM EDT documented in this encounter Results * POCT Glucose (10/21/2022 7:32 AM EDT) POC Glucose 95 65 - 199 mg/dL [facility] Comment: Supplemental ranges: <140 mg/dL before meals <180 mg/dL all other times of the day Blood 10/21/2022 7:32 AM EDT 10/21/2022 7:32 AM EDT Ronda Mckeon MD POINT OF CARE TEST O AUDELIA [facility] [place] [address] * POCT Glucose (10/21/2022 12:33 AM EDT) POC Glucose 112 65 - 199 mg/dL [facility] Comment: Supplemental ranges: <140 mg/dL before meals <180 mg/dL all other times of the day Blood 10/21/2022 12:3 3 AM EDT 10/21/2022 12:33 AM EDT Ronda Mckeon MD POINT OF CARE TEST O AUDELIA Performing Organization Address City/[facility]/ZIP Co de Phone Number [facility] [place] [address] * POCT Glucose (10/20/2022 8:26 PM EDT) POC Glucose 130 65 - 199 mg/dL [facility] Comment: Supplemental ranges: <140 mg/dL before meals <180 mg/dL all other times of the day Blood 10/20/2022 8:26 PM EDT 10/20/2022 8:26 PM EDT Ronda Mckeon MD POINT OF CARE TEST O RDERAKENDRA [facility] [place] [address] * POCT Glucose (10/20/2022 6:17 PM EDT) [facility] POC Glucose 120 65 - 199 mg/dL [facility] Comment: Supplemental ranges: <140 mg/dL before meals <180 mg/dL all other times of the day Blood 10/20/2022 6:17 PM EDT 10/20/2022 6:17 PM EDT Ronda Mckeon MD POINT OF CARE TEST O AUDELIA [facility] [place] [address] * Differential, Automated (10/20/2022 2:12 PM EDT) [facility] Neutrophils % 68.5 % [facility] Neutr Abs (ANC) 5.89 1.70 - 6.10 x10(3)/[facility] Lymphocytes % 24.0 % [facility] Lymphocytes Abs 2.1 0.9 - 3.2 x10(3)/[facility] Monocytes % 5.6 % [facility] Monocyte Abs 0.5 0.3 - 0.9 x10(3)/[facility] Eosinophils % 1.4 % [facility] Eosinophils Abs 0.1 0.0 - 0.4 x10(3)/[facility] Basophils % 0.3 % [facility] Basophils Abs 0.0 0.0 - 0.1 x10(3)/[facility] Immature Gran % 0.20 % [facility] Comment: Immature granulocytes(IG's)percentage and absolute count will include metamyelocytes, myelocytes, and promyelocytes. Blood smears from CBCs yielding IG's will be scanned manually for concordance. If this scan disagrees with the automated IG or if promyelocytes are noted, a manual differential will be performed. Micki Gran Abs 0.02 0.00 - 0.04 x10(3)/[facility] Blood 10/20/2022 2:12 PM EDT 10/20/2022 2:17 PM EDT Narrative Resulting Agency Comment Spec In Lab Halima De La Rosa MD HEMATOLOGY ORDERABLE S [facility] [place] [address] * (ABNORMAL) Hemogram (10/20/2022 2:12 PM EDT) WBC 8.6 4.0 - 9.5 x10(3)/[facility] RBC 3.84(L) 4.00 - 5.21 x10(6)/[facility] Hemoglobin 11.0(L) 11.7 - 15.5 g/dL [facility] Hematocrit 34.2(L) 35.7 - 45.8 % [facility] MCV 89.1 82.6 - 94.4 [facility] MCH 28.6 27.1 - 32.0 pg [facility] MCHC 32.2 31.7 - 35.0 g/dL [facility] Platelets 243 145 - 357 x10(3)/[facility] RDWSD 44.7 37.0 - 46.0 [facility] RDWCV 13.7 11.5 - 14.1 % [facility] MPV 10.9 7.6 - 12.9 [facility] nRBC % Auto 0.0 % [facility] nRBC Abs Auto 0.000 0.000 - 0.000 x10(3)/[facility] Blood 10/20/2022 2:12 PM EDT 10/20/2022 2:17 PM EDT Narrative Resulting Agency Comment Spec In Lab Halima De La Rosa MD HEMATOLOGY ORDERABLE S [facility] [place] [address] * POCT Glucose (10/20/2022 12:39 PM EDT) Pathologist [facility] POC Glucose 101 65 - 199 mg/dL [facility] Comment: Supplemental ranges: <140 mg/dL before meals <180 mg/dL all other times of the day Blood 10/20/2022 12:3 9 PM EDT 10/20/2022 12:39 PM EDT Ronda Mckeon MD POINT OF CARE TEST O RDERABLES [facility] [place] [address] * Differential, Automated (10/20/2022 8:52 AM EDT) [facility] Neutrophils % 69.0 % [facility] Neutr Abs (ANC) 5.76 1.70 - 6.10 x10(3)/[facility] Lymphocytes % 23.4 % [facility] Lymphocytes Abs 2.0 0.9 - 3.2 x10(3)/[facility] Monocytes % 6.3 % [facility] Monocyte Abs 0.5 0.3 - 0.9 x10(3)/[facility] Eosinophils % 0.7 % [facility] Eosinophils Abs 0.1 0.0 - 0.4 x10(3)/[facility] Basophils % 0.4 % [facility] Basophils Abs 0.0 0.0 - 0.1 x10(3)/[facility] Immature Gran % 0.20 % [facility] Comment: Immature granulocytes(IG's)percentage and absolute count will include metamyelocytes, myelocytes, and promyelocytes. Blood smears from CBCs yielding IG's will be scanned manually for concordance. If this scan disagrees with the automated IG or if promyelocytes are noted, a manual differential will be performed. Micki Gran Abs 0.02 0.00 - 0.04 x10(3)/[facility] Blood 10/20/2022 8:52 AM EDT 10/20/2022 9:24 AM EDT Narrative Resulting Agency Comment Spec In Lab Halima De La Rosa MD HEMATOLOGY ORDERABLE S [facility] [place] [address] * (ABNORMAL) Hemogram (10/20/2022 8:52 AM EDT) WBC 8.4 4.0 - 9.5 x10(3)/[facility] RBC 3.71(L) 4.00 - 5.21 x10(6)/[facility] Hemoglobin 10.7(L) 11.7 - 15.5 g/dL [facility] Hematocrit 32.5(L) 35.7 - 45.8 % [facility] MCV 87.6 82.6 - 94.4 fL [facility] MCH 28.8 27.1 - 32.0 pg [facility] MCHC 32.9 31.7 - 35.0 g/dL [facility] Platelets 221 145 - 357 x10(3)/[facility] RDWSD 44.0 37.0 - 46.0 [facility] RDWCV 13.7 11.5 - 14.1 % [facility] MPV 11.1 7.6 - 12.9 [facility] nRBC % Auto 0.0 % [facility] nRBC Abs Auto 0.000 0.000 - 0.000 x10(3)/[facility] Blood 10/20/2022 8:52 AM EDT 10/20/2022 9:24 AM EDT Narrative Resulting Agency Comment Spec In Lab Halima De La Rosa MD HEMATOLOGY ORDERABLE S [facility] [place] [address] * (ABNORMAL) Differential, Automated (10/20/2022 4:12 AM EDT) Neutrophils % 75.6 % [facility] Neutr Abs (ANC) 6.83(H) 1.70 - 6.10 x10(3)/mc L [facility] Lymphocytes % 18.1 % [facility] Lymphocytes Abs 1.6 0.9 - 3.2 x10(3)/ L [facility] Monocytes % 5.8 % [facility] Monocyte Abs 0.5 0.3 - 0.9 x10(3)/ L [facility] Eosinophils % 0.1 % [facility] Eosinophils Abs 0.0 0.0 - 0.4 x10(3)/[facility] Basophils % 0.2 % [facility] Basophils Abs 0.0 0.0 - 0.1 x10(3)/[facility] Immature Gran % 0.20 % [facility] Comment: Immature granulocytes(IG's)percentage and absolute count will include metamyelocytes, myelocytes, and promyelocytes. Blood smears from CBCs yielding IG's will be scanned manually for concordance. If this scan disagrees with the automated IG or if promyelocytes are noted, a manual differential will be performed. Micki Gran Abs 0.02 0.00 - 0.04 x10(3)/ L [facility] Blood 10/20/2022 4:12 AM EDT 10/20/2022 4:36 AM EDT Narrative Resulting Agency Comment Spec In Lab Halima De La Rosa MD HEMATOLOGY ORDERABLE S Performing Organization Address City/[facility]/ZIP Co de Phone Number [facility] [place] [address] * (ABNORMAL) Hemogram (10/20/2022 4:12 AM EDT) WBC 9.0 4.0 - 9.5 x10(3)/[facility] RBC 3.66(L) 4.00 - 5.21 x10(6)/[facility] Hemoglobin 10.7(L) 11.7 - 15.5 g/dL [facility] Hematocrit 32.1(L) 35.7 - 45.8 % [facility] MCV 87.7 82.6 - 94.4 fL [facility] MCH 29.2 27.1 - 32.0 pg [facility] MCHC 33.3 31.7 - 35.0 g/dL [facility] Platelets 236 145 - 357 x10(3)/[facility] RDWSD 43.8 37.0 - 46.0 [facility] RDWCV 13.5 11.5 - 14.1 % [facility] MPV 11.2 7.6 - 12.9 [facility] nRBC % Auto 0.0 % [facility] nRBC Abs Auto 0.000 0.000 - 0.000 x10(3)/[facility] Blood 10/20/2022 4:12 AM EDT 10/20/2022 4:36 AM EDT Narrative Resulting Agency Comment Spec In Lab Halima De La Rosa MD HEMATOLOGY ORDERABLE S [facility] [address] [place] [address] * Phosphorus (10/20/2022 4:12 AM EDT) Phosphorus 3.8 2.5 - 4.5 mg/dL [facility] Blood 10/20/2022 4:12 AM EDT 10/20/2022 4:36 AM EDT Narrative Resulting Agency Comment Spec In Lab Halima De La Rosa MD CHEMISTRY ORDERABLES [facility] [place] [address] * Magnesium (10/20/2022 4:12 AM EDT) Magnesium 0.74 0.69 - 1.07 mmol/L [facility] Blood 10/20/2022 4:12 AM EDT 10/20/2022 4:36 AM EDT Narrative Resulting Agency Comment Spec In Lab Halima De La Rosa MD CHEMISTRY ORDERABLES Performing Organization Address [facility] Co de Phone Number [facility] [place] [address] * (ABNORMAL) Basic Metabolic Panel (non-fasting) (10/20/2022 4:12 AM EDT) Glucose Lvl 136 65 - 199 mg/dL [facility] Comment:Diabetes: >=200 mg/d L plus symptoms BUN 14 8 - 18 mg/dL [facility] Creatinine 0.82 0.70 - 1.20 mg/dL [facility] Sodium 137 135 - 145 mmol/L [facility] Potassium 4.0 3.5 - 5.0 mmol/L [facility] Comment: Please note: ??Patients with WBC >100,000 may have falsely elevated Potassium levels. ??For accurate Potassium quantification in these patients send serum separator tube (gold top) for subsequent determinations. ??Contact the Clinical Chemistry Laboratory if there are any questions. Chloride 105 98 - 107 mmol/L [facility] CO2 24 22 - 31 mmol/L [facility] Anion Gap 8 5 - 15 mmol/L [facility] Calcium 8.4(L) 8.5 - 10.5 mg/dL [facility] Estimated GFR 81 >=60 mL/min/1. 73 m?? [facility] Comment: This patient's estimated GFR [...] Rosa MD CHEMISTRY ORDERABLES Performing Organization Address [facility] Co de Phone Number [facility] [place] [address] * POCT Glucose (10/19/2022 5:29 PM EDT) POC Glucose 140 65 - 199 mg/dL [facility] Comment: Supplemental ranges: <140 mg/dL before meals <180 mg/dL all other times of the day Blood 10/19/2022 5:29 PM EDT 10/19/2022 5:29 PM EDT Ronda Mckeon MD POINT OF CARE TEST O RDERABLES Performing Organization Address [facility] Co de Phone Number [facility] [place] [address] * POCT Glucose (10/19/2022 1:46 PM EDT) POC Glucose 147 65 - 199 mg/dL [facility] Comment: Supplemental ranges: <140 mg/dL before meals <180 mg/dL all other times of the day Blood 10/19/2022 1:46 PM EDT 10/19/2022 1:46 PM EDT Ronda Mckeon MD POINT OF CARE TEST O RDBRITTNEE Performing Organization Address City/[facility]/ZIP Co de Phone Number [facility] [place] [address] * POCT Glucose (10/19/2022 1:24 PM EDT) POC Glucose 154 65 - 199 mg/dL [facility] Comment: Supplemental ranges: <140 mg/dL before meals <180 mg/dL all other times of the day Blood 10/19/2022 1:24 PM EDT 10/19/2022 1:24 PM EDT Ronda Mckeon MD POINT OF CARE TEST O AUDELIA Performing Organization Address [facility] [place] Co de Phone Number [facility] [place] [address] * POCT Glucose (10/19/2022 7:15 AM EDT) POC Glucose 87 65 - 199 mg/dL [facility] Comment: Supplemental ranges: <140 mg/dL before meals <180 mg/dL all other times of the day Blood 10/19/2022 7:15 AM EDT 10/19/2022 7:15 AM EDT Ronda Mckeon MD POINT OF CARE TEST O AUDELIA Performing Organization Address City/[facility] [place] Co de Phone Number [facility] [place] [address] documented in this encounter Visit Diagnoses Diagnosis [...] Routine documented in this encounter Care Teams Performance Engineer Relationship Specialty Start Date End Date Carolynn Wisdom APRN [address] [place] [address] [address] [place] [address] PCP - General Family Medicine 03/08/20 documented as of this encounter
--- OUTSIDE RECORDS SUMMARY | 2024-01-29 15:38 | XMS_ITS | Encounter Summary ---
Author Organization [facility] Address [facility] [place] [address] Care Team Providers Care Property Condition Assessor Name Role Phone Carolynn Wisdom APRN Primary Care Provider Encounter Details Date Type Department Care Team (Late st Contact Info) Description 10/01/2022 2:20 PM EDT Office Visit Dermatology at [facility] [address] [place] [address] Lisa Vasquez MD [facility] [place] [address] Inverse psoriasis Social History Tobacco Use Types [...] for Psoriasis follow up. []Note routed to workers compensation legal secretary [x]Recall placed in scheduling system []Appointment scheduled at checkout Scribe attestation: ISAI Medley has performed the documentation for this encounter in the presence of and acting as a scribe for Lisa Vasquez MD. I performed the above scribed service and agree with the accuracy of the documentation in this encounter. Reviewed and signed by: Lisa Vasquez MD Dermatology [facility] Patient seen and evaluated with staff sod cutter: Leonila Suarez MD Dermatology [facility] * Leonila Suarez MD - 10/01/2022 2:20 PM EDT I was the supervising physician working with dermatology resident Dr. Vasquez in the dermatology clinic during this patient visit. The level of resident supervision for this patient visit was indirectsupervision with direct supervision immediately available. (definition: [facility] Policy Statement on Graduate Medical Education, [...] 2:15 PM EDT Office Visit Dermatology at [facility] [address] [place] [address] Regina Rivas MD [facility] [place] [address] documented as of this encounter [...] psoriasis documented in this encounter Care Teams Property Condition Assessor Relationship Specialty Start Date End Date Carolynn Wisdom APRN [address] [place] [address] PCP - General Family Medicine 03/08/20 documented as of this encounter
--- OUTSIDE RECORDS SUMMARY | 2024-01-29 15:38 | XMS_ITS | Encounter Summary ---
Author Organization [facility] Eben [facility] [address] Care Team Providers Care Patient Office Rep Name Role Phone Carolynn Wisdom APRN Primary Care Provider Reason for Visit * Reason Comments Specialty Pharmacy Review Encounter Details Date Type Department Care Team (Late st Contact Info) Description 10/01/2022 Specialty [place] [address] Jean Slaughter, [facility] Social History Tobacco Use Types Packs/Day [...] Slaughter - 10/01/2022 11:59 PM EDT The [facility] has completed a benefits investigation for Melinda Goncalves to review their eligibility to fill at [facility]. Per patient's medication list they are prescribed STELARA 90 MG/ML and the medication is currently filled at the [facility]. documented in this encounter Plan of Treatment Upcoming Encounters Date Type Department Care Team (Late st Contact Info) Description 02/01/2025 2:15 PM EDT Office Visit Dermatology at [facility] [address] [place] [address] Regina Rivas MD [facility] [address] [place] [address] documented as of this encounter Goals Goal [...] on filedocumented in this encounter Care Teams Patient Office Rep Relationship Specialty Start Date End Date Artis CANDE Pradhan [address] [place] [address] PCP - General Family Medicine 03/08/20 documented as of this encounter
--- OUTSIDE RECORDS SUMMARY | 2024-01-29 15:38 | XMS_ITS | Encounter Summary ---
Author Organization [facility] Address [facility] [place] [address] Care Team Providers Care Sap Director Name Role Phone Carolynn Wisdom BUTADIENE COMPRESSOR OPERATOR Primary Care Provider Encounter Details Date [...] 2:15 PM EDT Office Visit Dermatology at [facility] [address] [place] [address] Regina Rivas MD [facility] [place] [address] documented as of this encounter Goals Goal [...] on filedocumented in this encounter Care Teams Sap Director Relationship Specialty Start Date End Date Carolynn Wisdom APRN [address] [place], [place] [address]Y [facility] [address] [place] [address] PCP - General Family Medicine 03/08/20 documented as of this encounter
--- OUTSIDE RECORDS SUMMARY | 2024-01-29 15:38 | XMS_ITS | Encounter Summary ---
Author Organization [facility] Address [facility] [place] [address] Care Team Providers Care Rack Puller Name Role Phone Carolynn Wisdom INSIDE SALES PERSON Primary Care Provider Encounter Details Date Type Department Care Team (Late st Contact Info) Description 10/24/2022 Telephone [place] [phone] Mirian Horowitz, RD [facility] [place] [address] Social History Tobacco Use Types Packs/Day Years [...] 2:15 PM EDT Office Visit Dermatology at [facility] [address] [place] [address] Regina Rivas MD [facility] [place] [address] documented as of this encounter Goals Goal [...] Note: Continue to work with sleep at [facility] Goal 7 hours of sleep nightly. Recommend consistent sleep and wake times, avoid electronics within one hour of sleep time movement Lifestyle No Michelle Jaquez, INSIDE SALES PERSON Note: Exercise goal is 150 -300 min [...] on filedocumented in this encounter Care Teams Rack Puller Relationship Specialty Start Date End Date Carolynn Wisdom APRN [address] [place] [address] PCP - General Family Medicine 03/08/20 documented as of this encounter
--- OUTSIDE RECORDS SUMMARY | 2024-01-29 15:38 | XMS_ITS | Encounter Summary ---
Author Organization [facility] [place] [address] Care Team Providers Care Rn Case Management Name Role Phone Carolynn Wisdom APRN Primary Care Provider Reason for Visit * Reason Onset Date Comments Appointment 04/18/2022 Encounter Details Date Type Department Care Team (Late st Contact Info) Description 04/18/2022 Telephone Weight and Wellness at [facility] [address] [place] [address] Blaire Reddy Appointment Social History [...] Dermatology at [facility] [address] [place] [address] Regina Rivas MD [facility] [place] [address] documented as of this encounter Goals Goal [...] Note: Continue to work with sleep at [facility] Goal 7 hours of sleep [...] filedocumented in this encounter Care Teams Rn Case Management Relationship Specialty Start Date End Date Carolynn Wisdom APRN [address] [place] [address] PCP - General Family Medicine 03/08/20 documented as of this encounter
--- OUTSIDE RECORDS SUMMARY | 2024-01-29 15:38 | XMS_ITS | Encounter Summary ---
Author Organization [facility] Address [facility] [place] [address] Care Team Providers Care Bending Press Operator Name Role Phone Carolynn Wisdom APRN Primary Care Provider Encounter Details Date Type Department Care Team (Late st Contact Info) Description 05/01/2022 Refill Dermatology at [facility] [address] [place] [address] Lisa Vasquez MD [facility] [place] [address] Social History Tobacco Use Types Packs/Day Years [...] 2:15 PM EDT Office Visit Dermatology at [facility] [address] [place] [address] Regina Rivas MD [facility] [place] [address] documented as of this encounter Goals Goal [...] on track(2021 11:37 AM EDT) Michelle Tai, LAWN CARETAKER Note: Mindfulness/deep breathing practice to reduce cortisol -try for at least 10 minutes a day sleep Lifestyle On track(2021 11:37 AM EDT) Michelle Tai, CANDE Note: Continue to work with sleep at [facility] Goal 7 hours of sleep nightly. [...] on filedocumented in this encounter Care Teams Bending Press Operator Relationship Specialty Start Date End Date Carolynn Wisdom APRN [address] [place] [address] PCP - General Family Medicine 03/08/20 documented as of this encounter
--- OUTSIDE RECORDS SUMMARY | 2024-01-29 15:38 | XMS_ITS | Encounter Summary ---
Author Organization [facility] Address [facility] [place] [address] Care Team Providers Care Applied Marine Physics Professor Name Role Phone Carolynn Wisdom VAC PRESS OPERATOR Primary Care Provider [phone] Encounter Details Date Type Department Care Team [...] 2:15 PM EDT Office Visit Dermatology at [facility] [address] [place] [address] Regina Rivas MD [facility] [address] [place] [address] documented as of this encounter Goals Goal [...] Note: Continue to work with sleep at [facility] Goal 7 hours of sleep nightly. [...] on filedocumented in this encounter Care Teams Applied Marine Physics Professor Relationship Specialty Start Date End Date Carolynn Wisdom APRN [address] [place], [place] [address]Y [facility] 1 [place] [address] PCP - General Family Medicine 03/08/20 documented as of this encounter
--- OUTSIDE RECORDS SUMMARY | 2024-01-29 15:38 | XMS_ITS | Encounter Summary ---
Author Organization [facility] [place] [address] Care Team Providers Care Metal Model Builder Name Role Phone MelodieCynthia juddji CASTELLON Primary Care Provider Encounter Details Date Type Department Care Team (Late st Contact Info) Description 07/11/2022 2:00 PM EST Office Visit Sleep Center at [facility] [address] [place] [address] Karla Woody APRN [facility] [place] [address] HEATHER on CPAP Social History Tobacco Use [...] Progress Notes * Karla Woody, CANDE - 07/11/2022 2:00 PM EST Sleep Medicine [...] Mouth/Throat: no Symptoms: Patient-reported last 4 scores: [facility] 01/17/2022 07/11/2022 [facility] Incomplete 2 (Low Risk) Snoring: Not [...] [facility] [address] [place] [address] Regina Rivas MD [facility] [place] [address] documented as of this encounter Goals Goal [...] time movement Lifestyle No Michelle Jaquez, ROTARY DRUM DYER Note: Exercise goal is 150 -300 min [...] (pediatric) documented in this encounter Care Teams Metal Model Builder Relationship Specialty Start Date End Date Carolynn Wisdom APRN [address] [place] [address] PCP - General Family Medicine 03/08/20 documented as of this encounter
--- OUTSIDE RECORDS SUMMARY | 2024-01-29 15:38 | XMS_ITS | Encounter Summary ---
Author Organization [facility] [place] [address] Care Team Providers Care Cattle Broker Name Role Phone MelodieCarolynn judd CANDE Primary Care Provider Reason for Visit * Reason Comments Establish Care Encounter Details Date Type Department Care Team (Late st Contact Info) Description 07/31/2022 1:00 PM EST Office [place] [address] Ronda Mckeon MD [facility] [place] [address] Marjorie Holman APRN [facility] [place] [address] Mirian Horowitz, PJ [facility] [place] [address] Class 2 severe obesity due to excess [...] BARIATRIC SURGERY PROGRAM FIRST VISIT Contact information: [facility] Administrative staff: Anitha [phone], Aisha [phone] Dietitian: [phone] Surgeons/ nurse practitioner: [phone] Nurse line: [phone] Bariatric Surgery Program educational information: Read the Bariatric Surgery Program Educational Handbook thoroughly, highlight important areas to remember. Write down any questions that you may have to discuss at next visit. Bring the Handbook to ALL pre-operative visits. Keep the handbook in a safe place for easy retrieval. Your next visits: All visits take place in the General Surgery Clinic, Senior Firmware Engineer Area 4L 2nd visits with dietitian and [...] be crushed (if permitted by the drug machine cutter) or taken in liquid form for TWO [...] medications will need to be used sparingly terminal computer operator after surgery to decrease risk of ulcer. [...] in your handbook. 2. Check out the [place] Society for Metabolic and Bariatric surgery (ASMBS) website for patient education - http://asmbs.org/patients 3. Nutrition and Activity apps- Baritastic, My Fitness Pal, Lose It 4. [facility] facebook page: [email or web address]/ documented in this encounter Progress Notes * Marjorie Holman APRN - 07/31/2022 1:00 PM EST [facility] Bariatric Surgery Evaluation Reason for consultation: Melinda [...] Has not attended a Introduction to the [facility] Bariatric Surgery Programseminar, a comprehensive two hour meeting that provides a program overview, education on bariatric surgeries offered at [facility], risks and benefits, as well as patient expectations and follow up. [facility] Bariatric Surgery Program Educational seminars viewed 2. Bariatric Surgery Program evaluations with RD: Completed today 3. Program start weight 222 WT at visit #1: Wt & BMI By Encounter Date Flowsheet Row Office Visit from 07/31/2022 in General Surgery at [facility] Office Visit from 07/11/2022 [facility] Weight 99.8 kg (220 lb) 1 [...] Wheat/ Latex allergy/sensitivity: denies control plan: postmenopausal. [facility] Preoperative Risk Assessment (negative if left blank): [...] Psychological evaluation done by Susan Mohan, PhD, [facility] Weight and Wellness : no contraindication to bariatric surgery from a psychological perspective. [facility] Initial Responses 07/31/2022 URICA - Readiness Score - WEL-SF Total Scores - PHQ-2 SubScore - GAD2 Subscore - MARIMAR 7 Total Scores - PROMIS 10 Physical Scores 42.3 PROMIS 10 Mental Scores 43.5 Total REAP-S Scores - TFEQ - Uncontrolled Eating (UE) - TFEQ-Cognitive Restraint (CR) - TFEQ-Emotional Eating - Food Insecurity Score 2 Fred Category I Result - Fred Category II Result - Fred Category III - Fred Sleep Apnea Total - Schooling Graduated from [...] surgery to be successful. Patient understands the terminal computer operator risks of vitamin deficiencies, internal hernias and [...] Dr. 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 Regain (lbs.) Dates Duration Comments [facility] WWC - Michelle Jaquez APRN and Yessy Jonas RD ~04 04 202208/08/21, 09/05/21, 10/17/21, 11/07/21, 11/16/21, 12/21/21, 02/27/22 Eat less/Move more variable Multiple times over the years Ozempic 2021 5 weeks Made her sick WW type program - ~9 months obessed with food. History of [...] broiling, grilling, etc.) [x] Nutrition Counseling with PACKAGE SORTER and RD [x] Not drinking with meals, [...] Surgery 3 weeks post-op 4 months post-op [place] Body Weight (based on BMI of 25): 146# 30-70% Excess Weight Loss: 168-198#; 50% Excess Weight Loss: 183# SUMMARY: Melinda Goncalves has been referred for nutrition evaluation and diet instruction in anticipation of bariatric surgery. Previous conservative attempts at weight loss through dieting have been unsuccessful over the senior living. Predicted weight loss with surgery is an [...] to surgery. Information given to patient: 1. [facility] Bariatric Surgery Education Handbook, a 102 page [...] 2:15 PM EDT Office Visit Dermatology at [place] [address] [place] [address] Regina Rivas MD [facility] [place] [address] Scheduled Orders Name Type Priority Associated Diagnoses [...] (pediatric) documented in this encounter Care Teams Cattle Broker Relationship Specialty Start Date End Date Carolynn Wisdom APRN [address] [place] [address] PCP - General Family Medicine 03/08/20 documented as of this encounter
--- OUTSIDE RECORDS SUMMARY | 2024-01-29 15:38 | XMS_ITS | Encounter Summary ---
Author Organization [facility] Address [facility] [place] [address] Care Team Providers Care Brass Buffer Name Role Phone Carolynn Wisdom COAT CUTTER Primary Care Provider Encounter Details Date Type [...] [facility] [address] [place] [address] Regina Rivas MD [facility] [place] [address] documented as of this encounter Goals Goal [...] on filedocumented in this encounter Care Teams Brass Buffer Relationship Specialty Start Date End Date Carolynn Wisdom APRN [address] [place], [place] [address]Y [facility] 1 [place] [address] PCP - General Family Medicine 03/08/20 documented as of this encounter
--- OUTSIDE RECORDS SUMMARY | 2024-01-29 15:38 | XMS_ITS | Encounter Summary ---
Author Organization [facility] Address [facility] [place] [address] Care Team Providers Care Testing Lead Name Role Phone Carolynn Wisdom APRN Primary Care Provider Encounter Details Date Type Department Care Team (Late st Contact Info) Description 05/23/2022 12:44 PM EST - 05/23/2022 11:59 PM [facility] Hospital Encounter Mammography/[place] [address] Carolynn Wisdom APRN [address] [place], [place] [id number] Visit for screening mammogram Discharge Disposition: Home [...] weeks. 1 mL 1 05/01/2022 01/31/2023 Insulin [place], Disposable, 29 gauge Needle by NOT APPLICABLE [...] 2:15 PM EDT Office Visit Dermatology at [facility] [address] [place] [address] Regina Rivas MD [facility] [place] [address] documented as of this encounter Goals Goal [...] mammogram documented in this encounter Care Teams Testing Lead Relationship Specialty Start Date End Date Carolynn Wisdom APRN [address] [place] [address] PCP - General Family Medicine 03/08/20 documented as of this encounter
--- OUTSIDE RECORDS SUMMARY | 2024-01-29 15:38 | XMS_ITS | Encounter Summary ---
Author Organization [facility] [place] [address] Care Team Providers Care Calibration Checker Name Role Phone Reginaldomarcus Carolynn CASTELLON Primary Care Provider [phone] Reason for Visit * Auth/Cert (Routine) Specialty [...] EGD, UPPER GI ENDOSCOPY Ronda Mckeon MD [facility] [place] [address] [facility] Referral ID Status Reason Start Date Expiration Date Visits Re quested Visits Authorized [id number] 1 1 Encounter Details Date Type Department Care Team (Late st Contact Info) Description 10/19/2022 9:13 AM EDT Anesthesia Event [place] [address] Delonte Narvaez [facility] [place] [address] Anesthesia Record Procedure Summary Procedure Name Responsible [...] 0728; metacarpal vein (top of hand), right; [id number] catheter system; Anatomical Landmarks; 20 gauge; Toñito Barfield RN; distraction; 10/21/22; 1101 10/19/22 0728 by Renetta Mandujano, MEGAN 10/21/22 110 by Citlaly Stephens LNA ETT [...] Kaleb Freeman RN 10/19/22 132 by Kaleb Freeman RN documented in this encounter Social History [...] Procedure Summary Date: 10/19/22 Room / Location: [facility] OR [address] [place] [address] MAIN OR Anesthesia Start: 912 Anesthesia Stop: [...] shown include unvalidated device data. Patient Location: PACU/[facility] Level of Consciousness: Conscious but Sleepy Pain [...] 2:15 PM EDT Office Visit Dermatology at [facility] [address] [place] [address] Regina Rivas MD [facility] DR [place] [address] documented as of this encounter Goals Goal [...] Note: Continue to work with sleep at [facility] Goal 7 hours of sleep nightly. [...] mg documented in this encounter Care Teams Calibration Checker Relationship Specialty Start Date End Date Carolynn Wisdom, IS MANAGER [address] [place] [address] PCP - General Family Medicine 03/08/20 documented as of this encounter
--- OUTSIDE RECORDS SUMMARY | 2024-01-29 15:38 | XMS_ITS | Encounter Summary ---
Author Organization [facility] [place] [address] Care Team Providers Care Senior Consumer Insights Consultant Name Role Phone Carolynn Wisdom FILM WAXER Primary Care Provider Reason for Visit * Reason Comments Specialty Refill Management Stelara 90mg /ml Sosy Medication Management Encounter Details Date Type Department Care Team (Late st Contact Info) Description 07/04/2022 Specialty Pharm[place] [address] Enrique Kohli, DIRECTOR OF CAREER SERVICES Social History Tobacco Use Types Packs/Day Years [...] Yes Date Confirmed: 11/23/20 Confirmation: Signature in Informative -Patient is aware a licensed pharmacist is [...] 2:15 PM EDT Office Visit Dermatology at [facility] [address] [place] [address] Regina Rivas MD [facility] [place] [address] documented as of this encounter Goals Goal [...] Continue to work with sleep at [facility] Goal 7 hours of sleep nightly. Recommend [...] filedocumented in this encounter Care Teams Senior Consumer Insights Consultant Relationship Specialty Start Date End Date Carolynn Wisdom APRN [address] [place] [address] PCP - General Family Medicine 03/08/20 documented as of this encounter
--- OUTSIDE RECORDS SUMMARY | 2024-01-29 15:38 | XMS_ITS | Encounter Summary ---
Author Organization [facility] Address [facility] [place] [address] Care Team Providers Care Mule Driver Name Role Phone Carolynn Wisdom BIOPHARMACEUTICAL REP Primary Care Provider Encounter Details Date Type [...] at [facility] [address] [place] [address] Regina Rivas MD [facility] [address] [place] [address] documented as of this encounter Goals Goal [...] on filedocumented in this encounter Care Teams Mule Driver Relationship Specialty Start Date End Date Carolynn Wisdom APRN [address] [place], [place] [id number] [facility] [address] [place] [address] PCP - General Family Medicine 03/08/20 documented as of this encounter
--- OUTSIDE RECORDS SUMMARY | 2024-01-29 15:38 | XMS_ITS | Encounter Summary ---
Author Organization [facility] [place] [address] Care Team Providers Care Senior Care Assistant Name Role Phone ReginaldoCynthia velazquezCarolynn CANDE Primary Care Provider [phone] Reason for Visit * Auth/Cert (Routine) Specialty [...] EGD, UPPER GI ENDOSCOPY Ronda Mckeon MD [facility] [place] [address] [facility] Referral ID Status Reason Start Date Expiration Date Visits Re quested Visits Authorized [id number] 1 1 Encounter Details Date Type Department Care Team (Late st Contact Info) Description 10/19/2022 8:30 AM EDT - 10/19/2022 1:15 PM EDT Surgery [place] [id number] Ronda Mckeon MD [facility] [place] [address] @LAPAROSCOPIC GASTROPLASTY W/ DAVID-EN-Y CONSTRUCTION ([facility] 29.4) [...] Operations: 10/19/2022 Surgeon(s) and Role: * Ronda cMkeon MD - Primary * Halima De La [...] Center 11/09/2022 12:30 PM Marjorie Holman APRN [facility] 02/15/2023 12:30 PM Marjorie Holman APRN [facility] 07/11/2023 2:00 PM Karla Woody APRN [facility] Outpatient Services/Studies: No discharge procedures on file. Instructions Given to Patient at Discharge:. An After Visit Summary was printed and given to the patient. Patient Instructions BARIATRIC SURGERY DISCHARGE INFORMATION BARIATRIC SUPPORT TEAM CONTACT NUMBERS (Mon-Fri 8am - 5pm): General Surgery and Bariatric Surgery [phone] Bariatric Surgeons: Mike Davidson and Peter [phone] Structural Welder: [phone] Dietitians: [phone] Outside of regular business hours, including weekends and holidays: Ask for General Surgery resident group home paraprofessional [phone] Please note, this call will be answered [...] weeks at the General Surgery Outpatient Clinic (Information Scientist 4L, [facility] Future Appointments Date Time Provider Department Center 11/09/2022 12:30 PM Marjorie Holman APRN [facility] 02/15/2023 12:30 PM Marjorie Holman APRN [facility] 07/11/2023 2:00 PM Karla Woody APRN [facility] [address] BATHING AND WOUND CARE: ?? [...] for assistance to pay for this with [employer]. Go to www.[employer] ([employer]) and put in the prescription and the [...] Follow up with primary care provider or step down specialist in 1-2 weeks in order to [...] La Rosa MD 10/21/22 10:28 AM MISpager [phone] documented in this encounter Discharge Instructions * Patient Instructions* Halima De La Rosa MD - 10/19/2022 8:31 PM EDT Images from the original note were not included. BARIATRIC SURGERY DISCHARGE INFORMATION BARIATRIC SUPPORT TEAM CONTACT NUMBERS (Mon-Fri 8am - 5pm): General Surgery and Bariatric Surgery [phone] Bariatric Surgeons: Mike Davidson and Peter [phone] Structural Welder: [phone] Dietitians: [phone] Outside of regular business hours, including weekends and holidays: Ask for General Surgery resident group home paraprofessional [phone] Please note, this call will be answered [...] weeks at the General Surgery Outpatient Clinic (Information Scientist 4L, [facility] Future Appointments Date Time Provider Department Center 11/09/2022 12:30 PM Marjorie Holman APRN [facility] 02/15/2023 12:30 PM Marjorie Holman APRN [facility] 07/11/2023 2:00 PM Karla Woody APRN [facility] [address] BATHING AND WOUND [...] for assistance to pay for this with [employer]. Go to www[employer] ([employer]) and put in the prescription and the [...] Follow up with primary care provider or step down specialist in 1-2 weeks in order to [...] Surgery 9:40 AM 10/20/22 MIS service pager: [phone] Associated attestation - Ronda Mckeon MD - 10/20/2022 1:11 PM EDT I have seen and examined the patient, reviewed the history documented and I agree with the details as written. I have reviewed the available, pertinent laboratory data and imaging. The assessment andplan were formulated in discussion with me and I agree with them as documented. Ronda Mckeon MD * Jewel Burnett, [facility] - 10/20/2022 7:12 AM EDT Respiratory Care Consult Note Melinda Goncalves 1960 [id number] 10/19/2022 6:52 AM Hospital Day: 1 Reason for Consult: Pt is post op Gastric Bypass with Hx of HEATHER and use of NIV History: Melinda Goncalves is a 62 y.o. female with a PMHx significant for HEATHER, who was admitted to [facility] for Gastric Bypass. Home NIV: Yes - Device was set up and is ready for use tonight Assessment: Appearance: Pt is not in distress on Room air with sats in the mid 90s% Current Respiratory Therapy: IS with goals of 1500 demonstrated Recommendations: At this point in Melidna Goncalves stay I would suggest to use her NIV at HS as described by the Med staff pre surgery. I reviewed the rationale with her for using the device and how this will help her to maintain her lung volumes and de-stress her heart. Jewel Burnett RCP If we can be of further assistance please contact the Respiratory Department at Pager #[phone]. * Halima De La Rosa MD - [...] POD0 from @LAPAROSCOPIC GASTROPLASTY W/ DAVID-EN-Y CONSTRUCTION ([facility] 29.4): 29309 (CPT??) EGD, UPPER GI ENDOSCOPY ([facility] 2.09): 98431 (CPT??) recovering as expected. Will be moving [...] assumed 1999 Hand off to MEGAN Iniguez [facility] * Wanda Guzman RN - 10/19/2022 [...] Rosa MD - 10/19/2022 8:25 AM EDT [facility] Minimally Invasive Surgery Pre-Operative H&P Patient evaluated day of surgery. Please see below for details of patient history as adapted from last clinic visit.No new findings or changes to medical history. No recent illnesses, cough, fever, diarrhea. Plan to proceed with surgery. Halima De La Rosa MD 10/19/22 8:25 AM [phone] [facility] Bariatric Surgery Evaluation ? Reason for [...] Has not attended a Introduction to the [facility] Bariatric Surgery Program seminar, a comprehensive two hour meeting that provides a program overview, education on bariatric surgeries offered at [facility], risks and benefits, as well as patient expectations and follow up. [facility] Educational seminars viewed 2. Bariatric Surgery Program evaluations with RD: Completed today 3. Program start weight 222 WT at visit #1: Wt & BMI By Encounter Date Flowsheet Row Office Visit from 07/31/2022 in General Surgery at [facility] Office Visit from 07/11/2022 [facility] at [facility] Weight 99.8 kg (220 lb) 1 [...] allergy/sensitivity: denies ?? control plan: postmenopausal. ?? [facility] Preoperative Risk Assessment (negative if left [...] Psychological evaluation done by Susan Mohan, PhD, [facility] Weight and Wellness : no contraindication to bariatric surgery from a psychological perspective. ? [facility] Initial Responses 07/31/2022 URICA - Readiness Score - WEL-SF Total Scores - PHQ-2 SubScore - GAD2 Subscore - MARIMAR 7 Total Scores - PROMIS 10 Physical Scores 42.3 PROMIS 10 Mental Scores 43.5 Total REAP-S Scores - TFEQ - Uncontrolled Eating (UE) - TFEQ-Cognitive Restraint (CR) - TFEQ-Emotional Eating - Food Insecurity Score 2 [place] Category I Result - [place] Category II Result - [place] Category III - [place] Sleep Apnea Total - Schooling Graduated from [...] surgery to be successful. Patient understands the prison risks of vitamin deficiencies, internal hernias and [...] Dr. 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 ??? Continue CPAP use and compliance. Reviewed risks of untreated/undertreated HEATHER pre/rachel/post operatively. Consider repeat compliance report. ??? Preoperative Group Class ??? CBC and CMP within 6 months of surgery, per [facility] accredited bariatric center guidelines. (Sent to [...] 10/03/2022 1:00 PM EDT BARIATRIC SURGERY PROGRAM [place], [place] [address] Reason for visit: [facility] for up coming bariatric surgery Melinda attended a comprehensive group pre-operative class today, which included discussion of pre and post operative instructions included in the [facility] Bariatric Surgery Program Education Handbook. The nutrition [...] Pt previously attended a Introduction to the [facility] Bariatric Surgery Program seminar,a two hour meeting that provides a program overview as well as expectations. The [facility] Bariatric Surgery Program Educational seminar requirement has [...] surgery and post-op routine care/ locations: Admissions/SDP/PACU/4/3/2 [place] units ?? medications that increase the risk [...] Mckeon MD - 10/19/2022 9:47 AM EDT [facility] Operative Note Patient Name: Melinda Goncalves : [id number] MR#: [id number] Case Date: 10/19/2022 Surgeon: Surgeon(s) and Role: [...] from the point of transection, and a [id number] jejunojejunostomy was created between this point in [...] surrounding tissue in preparation for anastomosis. The Omega drain was identified in the lesser sac [...] PM EDT Office Visit Dermatology at [facility] [address] [place] [address] Regina Rivas MD [facility] [place] [address] documented as of this encounter Goals Goal [...] 1:24 PM EDT Upper GI Endoscopy, Diagnostic (87909) 10/19/2022 9:12 AM EDT Morbid Obesity Lap Gastric Bypass/David-En-Y (91200) 10/19/2022 9:12 AM EDT Morbid Obesity POCT GLUCOSE Routine 10/19/2022 7:15 AM EDT UPPER GI ENDOSCOPY Routine 10/19/2022 6: 56 AM EDT LAPAROSCOPIC GASTROPLASTY, G\SURG Routine 10/19/2022 6:56 AM EDT documented in this encounter Results * POCT Glucose (10/21/2022 7:32 AM EDT) POC Glucose 95 65 - 199 mg/dL [facility] Comment: Supplemental ranges: <140 mg/dL before meals <180 mg/dL all other times of the day Blood 10/21/2022 7:32 AM EDT 10/21/2022 7:32 AM EDT Ronda Mckeon MD POINT OF CARE TEST O RDERAKENDRA [facility] [place] [address] * POCT Glucose (10/21/2022 12:33 AM EDT) POC Glucose 112 65 - 199 mg/dL [facility] Comment: Supplemental ranges: <140 mg/dL before meals <180 mg/dL all other times of the day Blood 10/21/2022 12:3 3 AM EDT 10/21/2022 12:33 AM EDT Ronda Mckeon MD POINT OF CARE TEST O AUDELIA Performing Organization Address City/[facility]/ZIP Co de Phone Number [facility] [place] [address] * POCT Glucose (10/20/2022 8:26 PM EDT) POC Glucose 130 65 - 199 mg/dL [facility] Comment: Supplemental ranges: <140 mg/dL before meals <180 mg/dL all other times of the day Blood 10/20/2022 8:26 PM EDT 10/20/2022 8:26 PM EDT Ronda Mckeon MD POINT OF CARE TEST O RDERAKENDRA [facility] [place] [address] * POCT Glucose (10/20/2022 6:17 PM EDT) [facility] POC Glucose 120 65 - 199 mg/dL [facility] Comment: Supplemental ranges: <140 mg/dL before meals <180 mg/dL all other times of the day Blood 10/20/2022 6:17 PM EDT 10/20/2022 6:17 PM EDT Ronda Mckeon MD POINT OF CARE TEST O RDERABLES [facility] [place] [address] * Differential, Automated (10/20/2022 2:12 PM EDT) [facility] Neutrophils % 68.5 % [facility] Neutr Abs (ANC) 5.89 1.70 - 6.10 x10(3)/[facility] Lymphocytes % 24.0 % [facility] Lymphocytes Abs 2.1 0.9 - 3.2 x10(3)/[facility] Monocytes % 5.6 % [facility] Monocyte Abs 0.5 0.3 - 0.9 x10(3)/[facility] Eosinophils % 1.4 % [facility] Eosinophils Abs 0.1 0.0 - 0.4 x10(3)/[facility] Basophils % 0.3 % [facility] Basophils Abs 0.0 0.0 - 0.1 x10(3)/[facility] Immature Gran % 0.20 % [facility] Comment: Immature granulocytes(IG's)percentage and absolute count will include metamyelocytes, myelocytes, and promyelocytes. Blood smears from CBCs yielding IG's will be scanned manually for concordance. If this scan disagrees with the automated IG or if promyelocytes are noted, a manual differential will be performed. Micki Gran Abs 0.02 0.00 - 0.04 x10(3)/[facility] Blood 10/20/2022 2:12 PM EDT 10/20/2022 2:17 PM EDT Narrative Resulting Agency Comment Spec In Lab Halima De La Rosa MD HEMATOLOGY ORDERABLE S [facility] [place] [address] * (ABNORMAL) Hemogram (10/20/2022 2:12 PM EDT) WBC 8.6 4.0 - 9.5 x10(3)/[facility] RBC 3.84(L) 4.00 - 5.21 x10(6)/[facility] Hemoglobin 11.0(L) 11.7 - 15.5 g/dL [facility] Hematocrit 34.2(L) 35.7 - 45.8 % [facility] MCV 89.1 82.6 - 94.4 fL [facility] MCH 28.6 27.1 - 32.0 pg [facility] MCHC 32.2 31.7 - 35.0 g/dL [facility] Platelets 243 145 - 357 x10(3)/[facility] RDWSD 44.7 37.0 - 46.0 [facility] RDWCV 13.7 11.5 - 14.1 % [facility] MPV 10.9 7.6 - 12.9 [facility] nRBC % Auto 0.0 % [facility] nRBC Abs Auto 0.000 0.000 - 0.000 x10(3)/[facility] Blood 10/20/2022 2:12 PM EDT 10/20/2022 2:17 PM EDT Narrative Resulting Agency Comment Spec In Lab Halima De La Rosa MD HEMATOLOGY ORDERABLE S [facility] [place] [address] * POCT Glucose (10/20/2022 12:39 PM EDT) [facility] POC Glucose 101 65 - 199 mg/dL [facility] Comment: Supplemental ranges: <140 mg/dL before meals <180 mg/dL all other times of the day Blood 10/20/2022 12:3 9 PM EDT 10/20/2022 12:39 PM EDT Ronda Mckeon MD POINT OF CARE TEST O RDERABLES Performing Organization Address [facility]/ZIP Co de Phone Number [facility] [place] [address] * Differential, Automated (10/20/2022 8:52 AM EDT) [facility] Neutrophils % 69.0 % [facility] Neutr Abs (ANC) 5.76 1.70 - 6.10 x10(3)/[facility] Lymphocytes % 23.4 % [facility] Lymphocytes Abs 2.0 0.9 - 3.2 x10(3)/[facility] Monocytes % 6.3 % [facility] Monocyte Abs 0.5 0.3 - 0.9 x10(3)/[facility] Eosinophils % 0.7 % [facility] Eosinophils Abs 0.1 0.0 - 0.4 x10(3)/[facility] Basophils % 0.4 % [facility] Basophils Abs 0.0 0.0 - 0.1 x10(3)/[facility] Immature Gran % 0.20 % [facility] Comment: Immature granulocytes(IG's)percentage and absolute count will include metamyelocytes, myelocytes, and promyelocytes. Blood smears from CBCs yielding IG's will be scanned manually for concordance. If this scan disagrees with the automated IG or if promyelocytes are noted, a manual differential will be performed. Micki Gran Abs 0.02 0.00 - 0.04 x10(3)/[facility] Blood 10/20/2022 8:52 AM EDT 10/20/2022 9:24 AM EDT Narrative Resulting Agency Comment Spec In Lab Halima De La Rosa MD HEMATOLOGY ORDERABLE S [facility] [place] [address] * (ABNORMAL) Hemogram (10/20/2022 8:52 AM EDT) WBC 8.4 4.0 - 9.5 x10(3)/[facility] RBC 3.71(L) 4.00 - 5.21 x10(6)/[facility] Hemoglobin 10.7(L) 11.7 - 15.5 g/dL [facility] Hematocrit 32.5(L) 35.7 - 45.8 % [facility] MCV 87.6 82.6 - 94.4 [facility] MCH 28.8 27.1 - 32.0 pg [facility] MCHC 32.9 31.7 - 35.0 g/dL [facility] Platelets 221 145 - 357 x10(3)/[facility] RDWSD 44.0 37.0 - 46.0 [facility] RDWCV 13.7 11.5 - 14.1 % [facility] MPV 11.1 7.6 - 12.9 [facility] nRBC % Auto 0.0 % [facility] nRBC Abs Auto 0.000 0.000 - 0.000 x10(3)/[facility] Blood 10/20/2022 8:52 AM EDT 10/20/2022 9:24 AM EDT Narrative Resulting Agency Comment Spec In Lab Halima De La Rosa MD HEMATOLOGY ORDERABLE S [facility] [place] [address] * (ABNORMAL) Differential, Automated (10/20/2022 4:12 AM EDT) Neutrophils % 75.6 % [facility] Neutr Abs (ANC) 6.83(H) 1.70 - 6.10 x10(3)/ L [facility] Lymphocytes % 18.1 % [facility] Lymphocytes Abs 1.6 0.9 - 3.2 x10(3)/[facility] Monocytes % 5.8 % [facility] Monocyte Abs 0.5 0.3 - 0.9 x10(3)/[facility] Eosinophils % 0.1 % [facility] Eosinophils Abs 0.0 0.0 - 0.4 x10(3)/[facility] Basophils % 0.2 % [facility] Basophils Abs 0.0 0.0 - 0.1 x10(3)/[facility] Immature Gran % 0.20 % [facility] Comment: Immature granulocytes(IG's)percentage and absolute count will include metamyelocytes, myelocytes, and promyelocytes. Blood smears from CBCs yielding IG's will be scanned manually for concordance. If this scan disagrees with the automated IG or if promyelocytes are noted, a manual differential will be performed. Micki Gran Abs 0.02 0.00 - 0.04 x10(3)/[facility] Blood 10/20/2022 4:12 AM EDT 10/20/2022 4:36 AM EDT Narrative Resulting Agency Comment Spec In Lab Halima De La Rosa MD HEMATOLOGY ORDERABLE S [facility] [place] [address] * (ABNORMAL) Hemogram (10/20/2022 4:12 AM EDT) WBC 9.0 4.0 - 9.5 x10(3)/[facility] RBC 3.66(L) 4.00 - 5.21 x10(6)/[facility] Hemoglobin 10.7(L) 11.7 - 15.5 g/dL [facility] Hematocrit 32.1(L) 35.7 - 45.8 % [facility] MCV 87.7 82.6 - 94.4 [facility] MCH 29.2 27.1 - 32.0 pg [facility] MCHC 33.3 31.7 - 35.0 g/dL [facility] Platelets 236 145 - 357 x10(3)/[facility] RDWSD 43.8 37.0 - 46.0 [facility] RDWCV 13.5 11.5 - 14.1 % [facility] MPV 11.2 7.6 - 12.9 [facility] nRBC % Auto 0.0 % [facility] nRBC Abs Auto 0.000 0.000 - 0.000 x10(3)/[facility] Blood 10/20/2022 4:12 AM EDT 10/20/2022 4:36 AM EDT Narrative Resulting Agency Comment Spec In Lab Halima De La Rosa MD [place] [address] * Phosphorus (10/20/2022 4:12 AM EDT) Phosphorus 3.8 2.5 - 4.5 mg/dL [facility] Blood 10/20/2022 4:12 AM EDT 10/20/2022 4:36 AM EDT Narrative Resulting Agency Comment Spec In Lab Halima De La Rosa MD CHEMISTRY ORDERABLES Performing Organization Address City/[facility]/ZIP Co de Phone Number [facility] [place] [address] * Magnesium (10/20/2022 4:12 AM EDT) Magnesium 0.74 0.69 - 1.07 mmol/L [facility] Blood 10/20/2022 4:12 AM EDT 10/20/2022 4:36 AM EDT Narrative Resulting Agency Comment Spec In Lab Halima De La Rosa MD CHEMISTRY ORDERABLES Performing Organization Address [facility] Co de Phone Number [facility] [place] [address] * (ABNORMAL) Basic Metabolic Panel (non-fasting) (10/20/2022 4:12 AM EDT) Glucose Lvl 136 65 - 199 mg/dL [facility] Comment:Diabetes: >=200 mg/d L plus symptoms BUN 14 8 - 18 mg/dL [facility] Creatinine 0.82 0.70 - 1.20 mg/dL [facility] Sodium 137 135 - 145 mmol/L [facility] Potassium 4.0 3.5 - 5.0 mmol/L [facility] Comment: Please note: ??Patients with WBC >100,000 may have falsely elevated Potassium levels. ??For accurate Potassium quantification in these patients send serum separator tube (gold top) for subsequent determinations. ??Contact the Clinical Chemistry Laboratory if there are any questions. Chloride 105 98 - 107 mmol/L [facility] CO2 24 22 - 31 mmol/L [facility] Anion Gap 8 5 - 15 mmol/L [facility] Calcium 8.4(L) 8.5 - 10.5 mg/dL [facility] Estimated GFR 81 >=60 mL/min/1. 73 m?? [facility] Comment: This patient's estimated GFR [...] Rosa MD CHEMISTRY ORDERABLES Performing Organization Address [facility]/ZIP Co de Phone Number [facility] [place] [address] * POCT Glucose (10/19/2022 5:29 PM EDT) POC Glucose 140 65 - 199 mg/dL [facility] Comment: Supplemental ranges: <140 mg/dL before meals <180 mg/dL all other times of the day Blood 10/19/2022 5:29 PM EDT 10/19/2022 5:29 PM EDT Ronda Mckeon MD POINT OF CARE TEST O RDERABLES [facility] [place] [address] * POCT Glucose (10/19/2022 1:46 PM EDT) POC Glucose 147 65 - 199 mg/dL [facility] Comment: Supplemental ranges: <140 mg/dL before meals <180 mg/dL all other times of the day Blood 10/19/2022 1:46 PM EDT 10/19/2022 1:46 PM EDT Ronda Mckeon MD POINT OF CARE TEST O AUDELIA Performing Organization Address [facility] de Phone Number [facility] [place] [address] * POCT Glucose (10/19/2022 1:24 PM EDT) POC Glucose 154 65 - 199 mg/dL [facility] Comment: Supplemental ranges: <140 mg/dL before meals <180 mg/dL all other times of the day Blood 10/19/2022 1:24 PM EDT 10/19/2022 1:24 PM EDT Ronda Mckeon MD POINT OF CARE TEST O AUDELIA Performing Organization Address [facility] de Phone Number [facility] [place] [address] * POCT Glucose (10/19/2022 7:15 AM EDT) POC Glucose 87 65 - 199 mg/dL [facility] Comment: Supplemental ranges: <140 mg/dL before meals <180 mg/dL all other times of the day Blood 10/19/2022 7:15 AM EDT 10/19/2022 7:15 AM EDT Ronda Mckeon MD POINT OF CARE TEST O AUDELIA Performing Organization Address [facility] de Phone Number [facility] [place] [address] documented in this encounter Visit Diagnoses Not [...] immediately., Routine 1435 (Given - Provider: Rozina hAuja RN)2039 (Given - Provider: Geetha Navas RN) [...] not effective. 0658 (Given - Provider: Geetha Navas, RN)1308 (Given - Provider: Rozina Ahuja, MEGAN)2039 [...] Routine documented in this encounter Care Teams Senior Care Assistant Relationship Specialty Start Date End Date Carolynn Wisdom APRN [address] [place] [address] PCP - General Family Medicine 03/08/20 documented as of this encounter
--- OUTSIDE RECORDS SUMMARY | 2024-01-29 15:39 | XMS_ITS | Encounter Summary ---
Author Organization [facility] Address [facility] [place] [address] Care Team Providers Care Tile Edger Name Role Phone Artis Carolynn CANDE Primary Care Provider [phone] Reason for Visit * Consultation (Routine) - Closed Specialty Diagnoses / Procedures Referred By Bay t Referred To Contact Weight and Wellness Diagnoses Class 2 severe obesity due to excess calories with serious comorbidity and body mass index (BMI) of 38.0 to 38.9 in adult Leonid Michelle Singleton APRN [facility] DR JO [place] [address] [facility] [address] [place] [phone] Referral ID Status Reason Start Date Expiration Date V isits Requested Visits Authorized [id number] Closed Consult, Test & Treat 08/08/2021 08/08/2022 1 1 Encounter Details Date Type Department Care Team (Latest Contact Info) Description 11/29/2021 3:00 PM EDT TH Visit (TeleHealth) Weight and Wellness at [facility] [address] [place] [address] Iliana Peterson, PhD [facility] [place] [id number] Eating disorder, unspecified type Social History Tobacco [...] N JO OL[facility]IGHT AND WELLNESS AT [address] [address] Dept: [phone] 11/29/2021 3:00 PM Melinda Goncalves is a 61 y.o. female who was referred for evaluation and preparation for potential bariatric surgery. Melinda was seen for 60 minutes. Patient was alone, and was seen via Telehealth. Melinda Goncalves gave permission for and was seen for today's appointment with a Telehealth visit. During this visit they were located at home at [place], [place]. Melinda Goncalves is aware that for any urgent matter they can call [phone].. 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 REALISTIC POSTSURGICAL GOALS/EXPECTATIONS [place] body weight (based on a BMI of [...] 2:15 PM EDT Office Visit Dermatology at [facility] [address] [place] [address] Regina Rivas MD [facility] [place] [address] Scheduled Referrals Name Type Priority Associated Diagnoses Orde r Schedule Amb Referral to [facility] Psych Evaluation Outpatient Referral Routine Class [...] work with sleep at [facility] Goal 7 hours of sleep nightly. Recommend [...] type documented in this encounter Care Teams Tile Edger Relationship Specialty Start Date End Date Carolynn Wisdom APRN [address] [place] [address] PCP - General Family Medicine 03/08/20 documented as of this encounter
--- OUTSIDE RECORDS SUMMARY | 2024-01-29 15:39 | XMS_ITS | Encounter Summary ---
Author Organization [facility] [place] [address] Care Team Providers Care Fax Machine Operator Name Role Phone Carolynn Wisdom RECREATION ESTABLISHMENT MANAGER Primary Care Provider Encounter Details Date Type Department Care Team (Late st Contact Info) Description 07/19/2021 Notes Only Weight and Wellness at [address] [address] Renetta Rasmussen, RN Social History Tobacco Use Types Packs/Day Years Used Date Smoking Tobacco: Former Smokeless Tobacco: Never Sex and Gender Information Value Date Recorded Sex Assigned at Not on file Gender Identity Not on file Sexual Orientation Not on file documented as of this encounter Progress Notes * Renetta Rasmussen - 07/19/2021 10:[address] [facility] New Patient Referral Chart Prep Note Melinda Goncalves 1960 Referring Provider: Manda [x] [facility] referral (Epic) [] External Referral (scanned document) [...] 2:15 PM EDT Office Visit Dermatology at [facility] [address] [place] [address] Regina Rivas MD [facility] [place] [address] documented as of this encounter Visit Diagnoses Not on filedocumented in this encounter Care Teams Fax Machine Operator Relationship Specialty Start Date End Date Carolynn Wisdom APRN [address] [place] [address] PCP - General Family Medicine 03/08/20 documented as of this encounter
--- OUTSIDE RECORDS SUMMARY | 2024-01-29 15:39 | XMS_ITS | Encounter Summary ---
Author Organization [facility] [place] [address] Care Team Providers Care Steel Fabricating Supervisor Name Role Phone Carolynn Wisdom LONG CHAIN BEAMER Primary Care Provider Reason for Visit * Reason Comments Prior Authorization Stelara 90mg/ml syri nges Encounter Details Date Type Department Care Team (Late st Contact Info) Description 03/13/2022 Specialty Pharmacy [place] [address] Olga Perez, PROFESSIONAL CASTER Social History Tobacco Use Types Packs/Day Years [...] Goncalves Patient : 1960 Patient Address: [facility] [address] Phone: [phone] (home) Medication Name: STELARA 90 MG/ML SUBCUTANEOUS SYRINGE Medication ID: [id number] Subscriber Insurance: Unable to find Subscriber Insurance Comment: [facility](IRX) Fax: Physician: MAXI MASON Physician Comment: Sent Via: [facility] Oneal: [id number] Ref/Case/PA#: Medication Strength Frequency Requested: Stelara 90mg/ml, [...] STELARA 90 MG/ML SUBCUTANEOUS SYRINGE Medication ID: [id number] Case/Reference # : [id number] Denial Summary: PATIENT'S WEIGHT SHOULD BE MORE THAN 100KG. STELARA 45MG/0.5ML CAN BE APPROVED UPONREQUEST. Patient Notified of Denial: No Additional Information from insurance carrier. Please see below: None For any questions relating to this denial please reach out directly to your section's specialty pharmacist, or the specialty pharmacy team at [facility] Olga Perez 03/13/22 4:29 PM documented in this encounter Plan of Treatment Upcoming Encounters Date Type Department Care Team (Late st Contact Info) Description 02/01/2025 2:15 PM EDT Office Visit Dermatology at [facility] [address] [place] [address] Regina Rivas MD [facility] [place] [address] documented as of this encounter Goals Goal [...] Note: Continue to work with sleep at [facility] Goal 7 hours of sleep nightly. [...] on filedocumented in this encounter Care Teams Steel Fabricating Supervisor Relationship Specialty Start Date End Date Carolynn Wisdom APRN [address] [place] [address] PCP - General Family Medicine 03/08/20 documented as of this encounter
--- OUTSIDE RECORDS SUMMARY | 2024-01-29 15:39 | XMS_ITS | Encounter Summary ---
[place] [address] Care Team Providers Care Drafting Layout Worker Name Role Phone Carolynn Wisdom LINING STRAP CLOSER Primary Care Provider Reason for Visit * Reason Onset Date Comments Appointment 01/08/2022 Encounter Details Date Type Department Care Team (Late st Contact Info) Description 01/08/2022 Telephone Weight and Wellness at [address] [phone] Tanya Rush V Appointment Social History Tobacco [...] EDT Office Visit Dermatology at [facility] [address] [place] [address] Regina Rivas MD [facility] [place] [address] documented as of this encounter Goals Goal [...] on filedocumented in this encounter Care Teams Drafting Layout Worker Relationship Specialty Start Date End Date Artis CANDE Pradhan [address] [place] [address] PCP - General Family Medicine 03/08/20 documented as of this encounter
--- OUTSIDE RECORDS SUMMARY | 2024-01-29 15:39 | XMS_ITS | Encounter Summary ---
Author Organization [facility] Address [facility] [place] [address] Care Team Providers Care Director Medicaid Name Role Phone Carolynn Wisdom APRN Primary Care Provider [phone] Reason for Visit * Consultation (Routine) - Closed Specialty Diagnoses / Procedures Referred By Bay mckeon Referred To Contact Dermatology Diagnoses Erythema intertrigo Carolynn Wisdom APRN [address] [place] [address] [facility] Dermatology [address] [place] [address] Referral ID Status Reason Start Date Expiration Date V isits Requested Visits Authorized [id number] Closed Consult, Test & Treat [facility] PCP Updated and/or Approved 10/28/2020 10/28/2021 6 6 Encounter Details Date Type Department Care Team (Late st Contact Info) Description 08/18/2021 1:20 PM EST Office Visit Dermatology at [facility] [address] [place] [address] Lisa Vasquez MD [facility] [place] [address] Inverse psoriasis Social History Tobacco [...] months for inverse psoriasis []Note routed to executive legal secretary []Recall placed in scheduling system []Appointment scheduled at checkout Scribe attestation: Flaquito Allen [facility] has performed the documentation for this encounter in the presence of and acting as a scribe for Lisa Vasquez MD. I performed the above scribed service and agree with the accuracy of the documentation in this encounter. Reviewed and signed by: Lisa Vasquez MD Dermatology [facility] Patient seen and evaluated with staff fitter type bar and segment: Hina Shi MD Department of Dermatology [facility] * Hina Shi MD - 08/18/2021 1:20 [...] 2:15 PM EDT Office Visit Dermatology at [facility] [address] [place] [address] Regina Rivas MD [facility] [place] [address] documented as of this encounter Goals Goal [...] Note: Continue to work with sleep at [facility] Goal 7 hours of sleep nightly. Recommend consistent sleep and wake times, avoid electronics within one hour of sleep time movement Lifestyle No Michelle Jaquez, CD MANUFACTURING SUPERVISOR Note: Exercise goal is 150 -300 min a week, prioritize self so you have time to exercise Recommend resistance training 3 times a week -can use therabands documented as of this encounter Visit Diagnoses Diagnosis Inverse psoriasis Other psoriasis documented in this encounter Care Teams Director Medicaid Relationship Specialty Start Date End Date Carolynn Wisdom APRN [address] [place] [address] PCP - General Family Medicine 03/08/20 documented as of this encounter
--- OUTSIDE RECORDS SUMMARY | 2024-01-29 15:39 | XMS_ITS | Encounter Summary ---
Author Organization [facility] Address [facility] [place] [address] Care Team Providers Care Fisheries Inspector Name Role Phone Carolynn Wisdom EDGE FINISHER Primary Care Provider [phone] Encounter Details Date Type Department Care Team (Latest Contact Info) Description 02/06/2022 11:00 AM EDT TH Visit (TeleHealth) Weight and Wellness at [address] [address] Susan Mohan, PhD [facility] [place] [address] Eating disorder, unspecified type Social History Tobacco [...] N JO OLIVA WEIGHT AND WELLNESS AT [facility] [address] [facility] [address] Dept: [phone] 02/06/2022 9:30 AM Melinda Singleton Kishacyril is a 61 y.o. female who was [...] for any urgent matter they can call [phone].. RECOMMENDATION BASED ON PSYCHOLOGICAL EVALUATION YELLOW - [...] medications?: 0 The assessment and plan for Melindagustabo Goncalves are detailed at the beginning of this report. documented in this encounter Plan of Treatment Upcoming Encounters Date Type Department Care Team (Late st Contact Info) Description 02/01/2025 2:15 PM EDT Office Visit Dermatology at [facility] [address] [place] [address] Regina Rivas MD [facility] [place] [address] documented as of this encounter Goals Goal [...] type documented in this encounter Care Teams Fisheries Inspector Relationship Specialty Start Date End Date Carolynn Wisdom APRN [address] [place] [address] PCP - General Family Medicine 03/08/20 documented as of this encounter
--- OUTSIDE RECORDS SUMMARY | 2024-01-29 15:39 | XMS_ITS | Encounter Summary ---
Author Organization [facility] Address [facility] [place] [address] Care Team Providers Care County Coroner Name Role Phone Carolynn Wisdom APRN Primary Care Provider [phone] Reason for Referral * Diagnostic Test (Routine) - Closed Specialty Diagnoses / Procedures Referred By Bay mckeon Referred To Contact Sleep Center Diagnoses Snoring Obesity, unspecified classification, unspecified obesity type, unspecified whether serious comorbidity present Type 2 diabetes mellitus with other specified complication, unspecified whether care home insulin use Procedures Home Sleep Study Karla Woody TRESTLE BUILDER [facility] [place] [address] [facility] Sleep Medicine [address] [place] [address] Referral ID Status Reason Start Date Expiration Date V isits Requested Visits Authorized [id number] Closed Specialty Service Requested 01/19/2022 03/19/2022 1 1 Reason for Visit * Consultation (Routine) - Closed Specialty Diagnoses / Procedures Referred By Bay mckeon Referred To Contact Sleep Center Diagnoses Morbid (severe) obesity due to excess calories pre- bariatric surgery evaluation for suspected sleep apnea Procedures evaluate for sleep apnea Krystin Sharpe TRESTLE BUILDER [facility] [place] [address] [facility] Sleep Medicine [address] [place] [address] Referral ID Status Reason Start Date Expiration Date V isits Requested Visits Authorized [id number] Closed Consult, Test & Treat 01/08/2022 01/08/2023 1 1 Encounter Details Date Type Department Care Team (Late st Contact Info) Description 01/17/2022 1:00 PM EDT TH Visit (TeleHealth) Sleep Center at [facility] [address] [place] [address] Karla Woody APRN [facility] [place] [address] Snoring; Obesity, unspecified classification, unspecified obesity type, unspecified whether serious comorbidity present; Type 2 diabetes mellitus with other specified complication, unspecified whether care home insulin use Social History Tobacco Use Types [...] is currently located at their home in [place] Patient provided verbal consent prior to initiation [...] no Daytime Symptoms: Patient-reported last 4 scores: [facility] 01/17/2022 [place] [facility] Incomplete Upon Awakening: generally wakes feeling [...] lesions on body twice a day M-F ??? clobetasoL (Temovate) 0.05 % Ointment Apply topically twice a day on weekends, avoid face. ??? clobetasoL (TEMOVATE) 0.05 % Solution Apply topically to the scalp once daily for 2 weeks then take a week off and then repeat as needed ??? clotrimazole (LOTRIMIN) 1 % Cream Topical ??? Insulin [place], Disposable, 29 gauge Needle NOT APPLICABLE ??? 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 Alcohol: about 3 drinks per week Smoking: [...] 2:15 PM EDT Office Visit Dermatology at [facility] [address] [place] [address] Regina Rivas MD [facility] [place] [address] Scheduled Orders Name Type Priority Associated Diagnoses Orde r Schedule Home Sleep Study Sleep Center Routine Snoring Obesity, unspecified classification, unspecified obesity type, unspecified whether serious comorbidity present Type 2 diabetes mellitus with other specified complication, unspecified whether care home insulin use Expected: 01/17/2022, Expires: 01/17/2023 documented [...] mellitus with other specified complication, unspecified whether terminal press operator insulin use documented in this encounter Care Teams County Coroner Relationship Specialty Start Date End Date Carolynn Wisdom APRN [address] [place] [address] [address] [facility] [address] [place] [address] PCP - General Family Medicine 03/08/20 documented as of this encounter
--- OUTSIDE RECORDS SUMMARY | 2024-01-29 15:39 | XMS_ITS | Encounter Summary ---
Author Organization [facility] Address [facility] [place] [address] Care Team Providers Care Master Welder Name Role Phone Carolynn Wisdom APRN Primary Care Provider Reason for Visit * Reason Comments Follow-up Encounter Details Date Type Department Care Team (Late st Contact Info) Description 03/30/2022 3:00 PM EDT TH Visit (TeleHealth) Dermatology at [facility] [address] [place] [address] Lisa Vasquez MD [facility] [place] [address] Inverse psoriasis; High risk medication use Social [...] 62 y.o. Patient is being seen via [facility] for a follow up of psoriasis. - [...] Quant-TB Gold (to be done externally at [facility], faxed today by Melida) Other: ??? N/A RTC: 6 months for follow up of psoriasis []Note routed to legal secretary [x]Recall placed in scheduling system []Appointment scheduled at checkout Scribe attestation: Hodan Dougherty CMA has performed the documentation for this encounter in the presence of and acting as a scribe for Lisa Vasquez MD. I performed the above scribed service and agree with the accuracy of the documentation in this encounter. Reviewed and signed by: Lisa Vasquez MD Dermatology [facility] Patient seen and evaluated with staff in home sales representative: Lety Mcdonnell MD Dermatology [facility] * Lety Mcdonnell MD - 03/30/2022 3:00 [...] physician's note. Lety Mcdonnell MD Staff Physician [facility] Dermatology documented in this encounter Plan of Treatment Upcoming Encounters Date Type Department Care Team (Late st Contact Info) Description 02/01/2025 2:15 PM EDT Office Visit Dermatology at [facility] [address] [place] [address] Regina Rivas MD [facility] [place] [address] documented as of this encounter Goals Goal [...] on track(2021 11:37 AM EDT) Michelle Tai, BEE PRODUCER Note: Mindfulness/deep breathing practice to reduce cortisol [...] medications documented in this encounter Care Teams Master Welder Relationship Specialty Start Date End Date Carolynn Wisdom APRN [address] [place] [address] [address] [facility] [address] [place] [address] PCP - General Family Medicine 03/08/20 documented as of this encounter
--- OUTSIDE RECORDS SUMMARY | 2024-01-29 15:39 | XMS_ITS | Encounter Summary ---
Author Organization [facility] [place] [address] Care Team Providers Care Ledger Clerk Name Role Phone MelodieCarolynn judd FLOORWORKER LASTING Primary Care Provider Encounter Details Date Type Department Care Team (Late st Contact Info) Description 01/03/2022 Telephone [place] [address] Anitha Cruz Social History Tobacco Use Types [...] order and contacted the sleep center in [place] for her evaluation which was done however, [...] 2:15 PM EDT Office Visit Dermatology at [facility] [address] [place] [address] Regina Rivas MD [facility] [place] [address] documented as of this encounter Goals Goal [...] On track(2021 11:37 AM EDT) Michelle Tai, CADNE Note: Continue to work with sleep at [facility] Goal 7 hours of sleep nightly. Recommend consistent sleep and wake times, avoid electronics within one hour of sleep time movement Lifestyle No Michelle Jaquez, FLOORWORKER LASTING Note: Exercise goal is 150 -300 min [...] on filedocumented in this encounter Care Teams Ledger Clerk Relationship Specialty Start Date End Date Carolynn Wisdom APRN [address] [place] [address] PCP - General Family Medicine 03/08/20 documented as of this encounter
--- OUTSIDE RECORDS SUMMARY | 2024-01-29 15:39 | XMS_ITS | Encounter Summary ---
Author Organization [facility] [place] [address] Care Team Providers Care Stemhole Borer And Topper Name Role Phone Carolynn Wisdom TRAINING DEVELOPMENT MANAGER Primary Care Provider [phone] Reason for Visit * Reason Comments Medication Management Specialty Refill Management Encounter Details Date Type Department Care Team (Late st Contact Info) Description 10/17/2021 Specialty [place] [address] Oscar Mariano, [facility] Social History Tobacco Use Types Packs/Day Years Used Date Smoking Tobacco: Former Smokeless Tobacco: Never Sex and Gender Information Value Date Recorded Sex Assigned at Not on file Gender Identity Not on file Sexual Orientation Not on file documented as of this encounter Progress Notes * Oscar Mariano [facility] - 10/17/2021 2:24 PM EDT Clinical Management Plan: Refill Specialty Pharmacy Consultation; Oscar Mariano [facility] Comprehensive Medication Management (CMM) Melinda Goncalves is [...] Known Allergies Medication Reconciliation Discrepancies (compared to [facility] med list) No Specialty Pharmacy Refill Questionnaire [...] changes to current drug regimen were made. Oscar Mariano RPH 10/17/21 2:25 PM documented in this encounter Plan of Treatment Upcoming Encounters Date Type Department Care Team (Late st Contact Info) Description 02/01/2025 2:15 PM EDT Office Visit Dermatology at [facility] [address] [place] [address] Regina Rivas MD [facility] DR JO ARE[place] [address] documented as of this encounter Goals Goal [...] on filedocumented in this encounter Care Teams Stemhole Borer And Topper Relationship Specialty Start Date End Date Carolynn Wisdom APRN [address] [place] [address] PCP - General Family Medicine 03/08/20 documented as of this encounter
--- OUTSIDE RECORDS SUMMARY | 2024-01-29 15:39 | XMS_ITS | Encounter Summary ---
Author Organization [facility] [place] [address] Care Team Providers Care Bowling Ball Grader Name Role Phone MelodieCarolynn judd CANDE Primary Care Provider Encounter Details Date Type Department Care Team (Late st Contact Info) Description 08/07/2021 Telephone Weight and Wellness at [address] [phone] Kailyn Peng, DIETITIAN TEACHING Social History Tobacco Use Types Packs/Day Years Used Date Smoking Tobacco: Former Smokeless Tobacco: Never Sex and Gender Information Value Date Recorded Sex Assigned at Not on file Gender Identity Not on file Sexual Orientation Not on file documented as of this encounter Miscellaneous Notes * Telephone Encounter - Kailyn Peng CMA - 08/07/2021 3:52 PM EST [facility] Marketing Program Manager Pre-telemedicine Visit Phone Note Melinda Goncalves 1960 [] Patient was not reached Patient was reached and the following information was reviewed/obtained per protocol: [x] Confirmed patient name and date of [x] Confirmed ZOOM downloaded and functioning [] ZOOM appointment link sent if no MyDH [x] Phone number to be reached is: [phone] REVIEW: [] Review of patient medications completed [...] 2:15 PM EDT Office Visit Dermatology at [facility] [address] [place] [address] Regina Rivas MD [facility] DR JO [place] [address] documented as of this encounter Visit Diagnoses Not on filedocumented in this encounter Care Teams Bowling Ball Grader Relationship Specialty Start Date End Date Carolynn Wisdom APRN [address] [place] [address] PCP - General Family Medicine 03/08/20 documented as of this encounter
--- OUTSIDE RECORDS SUMMARY | 2024-01-29 15:39 | XMS_ITS | Encounter Summary ---
Author Organization [facility] [place] [address] Care Team Providers Care Shrimp Pond Laborer Name Role Phone Carolynn Wisdom CANDE Primary Care Provider Reason for Visit * Reason Comments Medication Management Encounter Details Date Type Department Care Team (Late st Contact Info) Description 01/17/2022 Specialty [place] [address] Viridiana Lemus RPH Social History Tobacco Use [...] Requirements: no Medication Reconciliation Discrepancies (compared to [facility] med list) no Medication List: Current Outpatient [...] Misc by NOT APPLICABLE route. ??? Insulin [place], Disposable, 29 gauge Needle by NOT APPLICABLE [...] Patient accepted offer to corporate travel counselor: adherence/missed doses, cost of medications/cost implications, [...] preventative care discussed, reminder to refill or cigar packer and picker medication discussed, self-monitoring discussed, timing of medications discussed, vaccination discussed, lifestyle modification education, referral needs discussed Time spent: 16-30 min Treatment Outcomes 01/17/2022 8530 Disease progression: Stable Patient Overall Status: Stable [...] Social Assessment: Does patient have a primary personal care home administrator: No Does patient have an emergency contact on file: Yes Does patient need referral to social science manager: No Does patient need referral to advocacy [...] were made at the appointment and that [facility] is[facility] recommendations (summary located at top of note) for provider review and follow up. Viridiana Lemus RPH 01/17/22 3:10 PM documented in this encounter Plan of Treatment Upcoming Encounters Date Type Department Care Team (Late st Contact Info) Description 02/01/2025 2:15 PM EDT Office Visit Dermatology at [facility] [address] [place] [address] Regina Rivas MD [facility] DR JO OLIV[place] [address] documented as of this encounter [...] Note: Continue to work with sleep at [facility] Goal 7 hours of sleep [...] on filedocumented in this encounter Care Teams Shrimp Pond Laborer Relationship Specialty Start Date End Date Carolynn Wisdom APRN [address] [place] [address] PCP - General Family Medicine 03/08/20 documented as of this encounter
--- OUTSIDE RECORDS SUMMARY | 2024-01-29 15:39 | XMS_ITS | Encounter Summary ---
Author Organization [facility] [place] [address] Care Team Providers Care Senior Net Developer Architect Name Role Phone Carolynn Wisdom APRN Primary Care Provider Reason for Visit * Reason Comments Specialty Refill Management Encounter Details Date Type Department Care Team (Late st Contact Info) Description 01/09/2022 Specialty [place] [address] Geetha Boss, JOSE Social History Tobacco Use [...] Allergies Medication Reconciliation Discrepancies (compared to [facility] med list) No Specialty Pharmacy [...] to current drug regimen were made. Geetha oBss CPHT 01/09/22 3:15 PM documented in this encounter Plan of Treatment Upcoming Encounters Date Type Department Care Team (Late st Contact Info) Description 02/01/2025 2:15 PM EDT Office Visit Dermatology at [facility] [address] [place] [address] Regina Rivas MD [facility] DR [place] [address] documented as of this encounter Goals Goal [...] Continue to work with sleep at [facility] Goal 7 hours of sleep [...] filedocumented in this encounter Care Teams Senior Net Developer Architect Relationship Specialty Start Date End Date Carolynn Wisdom APRN [address] [place] [address] PCP - General Family Medicine 03/08/20 documented as of this encounter
--- OUTSIDE RECORDS SUMMARY | 2024-01-29 15:39 | XMS_ITS | Encounter Summary ---
Author Organization [facility] [address] Care Team Providers Care Paper Tube Machine Operator Name Role Phone MelodieCarolynn judd CANDE Primary Care Provider Encounter Details Date Type Department Care Team (Late st Contact Info) Description 11/16/2021 Telephone General Surgery at [facility], [place] [address] Anitha Cruz Social History Tobacco Use Types Packs/Day Years Used Date Smoking Tobacco: Former Smokeless Tobacco: Never Sex and Gender Information Value Date Recorded Sex Assigned at Not on file Gender Identity Not on file Sexual Orientation Not on file documented as of this encounter Miscellaneous Notes * Telephone Encounter - Anitha Crzu - 11/16/2021 12:46 PM EDT Melinda called [...] Psych eval - she is waiting for [facility] to call her to schedule as discussed [...] at [address] [place] [address] Regina Rivas MD [facility] [place] [address] documented as of this encounter Goals Goal [...] Wisdom APRN [address] [place] [address] PCP - General Family Medicine 03/08/20 documented as of this encounter
--- OUTSIDE RECORDS SUMMARY | 2024-01-29 15:39 | XMS_ITS | Encounter Summary ---
Author Organization [facility] [place] [address] Care Team Providers Care Emd Special Education Teacher Name Role Phone MelodieCarolynn judd CANDE Primary Care Provider Encounter Details Date Type Department Care Team (Late Contact Info) Description 03/06/2022 Orders Only Sleep Center at [facility] [address] [place] [phone] Karla Woody APRN [facility] [place] [address] HEATHER (obstructive sleep apnea) Social History Tobacco [...] 2:15 PM EDT Office Visit Dermatology at [facility] [address] [place] [address] Regina Rivas MD [facility] [place] [address] documented as of this encounter Goals Goal [...] Continue to work with sleep at [facility] Goal 7 hours of sleep [...] 02/27/22 Lifestyle On track(2021 11:38 AM EDT) eYssy Finn RD Note: Nutrition Goals: Establish consistent [...] (pediatric) documented in this encounter Care Teams Emd Special Education Teacher Relationship Specialty Start Date End Date Carolynn Wisdom APRN [address] [place] [address] PCP - General Family Medicine 03/08/20 documented as of this encounter
--- OUTSIDE RECORDS SUMMARY | 2024-01-29 15:39 | XMS_ITS | Encounter Summary ---
Author Organization [facility] [place] [address] Care Team Providers Care Cinema Operator Name Role Phone Carolynn Wisdom FILLER SPREADER Primary Care Provider Reason for Visit * Reason Comments Medication Management Encounter Details Date Type Department Care Team (Late st Contact Info) Description 07/31/2021 Specialty [place] [address] Daylin Alba RPH Social History Tobacco Use [...] with the Hum[facility] at [facility] [...] 2:15 PM EDT Office Visit Dermatology at [facility] [address] [place] [address] Regina Rivas MD [facility] [place] [address] documented as of this encounter Visit Diagnoses Not on filedocumented in this encounter Care Teams Cinema Operator Relationship Specialty Start Date End Date Carolynn Wisdom APRN [address] [place] [address] PCP - General Family Medicine 03/08/20 documented as of this encounter
--- OUTSIDE RECORDS SUMMARY | 2024-01-29 15:39 | XMS_ITS | Encounter Summary ---
Author Organization [facility] Address [facility] [place] [address] Care Team Providers Care Wire Dropper Name Role Phone MelodieretamarcusCarolynn CANDE Primary Care Provider [phone] Reason for Visit * Diagnostic Test (Routine) - Closed Specialty Diagnoses / Procedures Referred By [facility] m[facility]on Referred To Contact Sleep Center Diagnoses Snoring Obesity, unspecified classification, unspecified obesity type, unspecified whether serious comorbidity present Type 2 diabetes mellitus with other specified complication, unspecified whether terminal make up operator insulin use Procedures Home Sleep Study Karla Woody APRN [facility] [place] [address] [facility] Sleep Medicine [address] [place] [address] Referral ID Status Reason Start Date Expiration Date V isits Requested Visits Authorized [id number] Closed Specialty Service Requested 01/19/2022 03/19/2022 1 1 Encounter Details Date Type Department Care Team (Late st Contact Info) Description 02/15/2022 3:00 PM EDT Procedure visit Sleep Center at [address] [place] [address] Bety Ge MD [facility] [place] [address] HEATHER (obstructive sleep apnea) Social [...] CPAP. Study results and recommendations relayed via [facility]. Recommendations: autoPAP 5-15cm F/U with Karla Woody APRN after initiating CPAP [facility] Sleep Disorders Center HOME SLEEP APNEA TEST REPORT Patient Name: Melinda Goncalves Study Date: 02/15/2022 Age & Sex: 62 y.o. Female Height: 5'3.5 Date of : 1960 Weight: 215 BMI: 37.5 Referring Prov.: Scoring Tech: MARTHA SIU RPSGT Sleep Fellow: Sleep Specialist: BETY GE M.D. General Test Details Type III home sleep apnea testing was performed utilizing nasal pressure, single thoracoabdominal movement, heart rate, and oxygen saturation according to established AASM guidelines. Recording Start Time: 20:27:02 Monitoring Start Time: 20:27:02 Recording End Time: :39:02 Monitoring End Time: [...] 2:15 PM EDT Office Visit Dermatology at [facility] [address] [place] [address] Regina Rivas MD [facility] [address] [place] [address] documented as of this encounter Goals Goal [...] (pediatric) documented in this encounter Care Teams Wire Dropper Relationship Specialty Start Date End Date Carolynn Wisdom APRN [address] [place] [address] PCP - General Family Medicine 03/08/20 documented as of this encounter
--- OUTSIDE RECORDS SUMMARY | 2024-01-29 15:39 | XMS_ITS | Encounter Summary ---
Author Organization [facility] Address [facility] [place] [address] Care Team Providers Care Director Workforce Management Name Role Phone Carolynn Wisdom APRN Primary Care Provider Encounter Details Date Type Department Care Team (Latest Contact Info) Description 03/20/2022 12:00 PM EDT TH Visit (TeleHealth) Weight and Wellness at [address] [address] Susan Mohan, PhD [facility] [address] [place] [address] Eating disorder, unspecified type Social History Tobacco [...] N JO OL[facility]A [facility] [place] [address] [facility] [address] Dept: [phone] 03/20/2022 12:03 PM Melinda L Kishacyril is a 62 y.o. female who was [...] visit they were located at home in [place]. Melinda Goncalves is aware that for any urgent matter they can call [phone].. RECOMMENDATION BASED ON PSYCHOLOGICAL EVALUATION YELLOW - [...] to connect with a mental health provider. Melinda shared that she is not certain she [...] PM EDT Office Visit Dermatology at [facility] [address] [place] [address] Regina Rivas MD [facility] [address] [place] [address] documented as of this encounter Goals Goal [...] Note: Continue to work with sleep at [facility] Goal 7 hours of sleep [...] type documented in this encounter Care Teams Director Workforce Management Relationship Specialty Start Date End Date Carolynn Wisdom APRN [address] [place] [address] PCP - General Family Medicine 03/08/20 documented as of this encounter
--- OUTSIDE RECORDS SUMMARY | 2024-01-29 15:39 | XMS_ITS | Encounter Summary ---
Author Organization [facility] [place] [address] Care Team Providers Care Steel Tester Name Role Phone MelodieCarolynn judd WINDOW DISPLAY DESIGNER Primary Care Provider Encounter Details Date Type Department Care Team (Late st Contact Info) Description 12/21/2021 Telephone General Surgery at [facility] [place] [address] Anitha Cruz Social History Tobacco Use Types [...] so that she can just come to [facility] for a sleep study as her [...] 2:15 PM EDT [facility] [address] [place] [address] Regina Rivas MD [facility] [place] [address] documented as of this encounter Goals Goal [...] Continue to work with sleep at [facility] Goal 7 hours of sleep nightly. Recommend consistent sleep and wake times, avoid electronics within one hour of sleep time movement Lifestyle No Michelle Jaquez, WINDOW DISPLAY DESIGNER Note: Exercise goal is 150 -300 min [...] filedocumented in this encounter Care Teams Steel Tester Relationship Specialty Start Date End Date Carolynn Wisdom APRN [address] [place] [address] PCP - General Family Medicine 03/08/20 documented as of this encounter
--- OUTSIDE RECORDS SUMMARY | 2024-01-29 15:39 | XMS_ITS | Encounter Summary ---
[place] [address] Care Team Providers Care Wire Twisting Machine Operator Name Role Phone MelodieCarolynn judd CANDE Primary Care Provider Reason for Visit * Reason Onset Date Comments Appointment 11/15/2021 Encounter Details Date Type Department Care Team (Late st Contact Info) Description 11/15/2021 Telephone Weight and Wellness at [address] [address] Tanya Rush V Appointment Social History Tobacco [...] 2:15 PM EDT Office Visit Dermatology at [place] [address] [place] [address] Regina Rivas MD [facility] [place] [address] documented as of this encounter Goals Goal [...] on filedocumented in this encounter Care Teams Wire Twisting Machine Operator Relationship Specialty Start Date End Date Carolynn Wisdom APRN [address] [place] [address] PCP - General Family Medicine 03/08/20 documented as of this encounter
--- OUTSIDE RECORDS SUMMARY | 2024-01-29 15:39 | XMS_ITS | Encounter Summary ---
Author Organization [facility] [place] [address] Care Team Providers Care Data Migration Lead Name Role Phone MelodieCarolynn judd CANDE Primary Care Provider Encounter Details Date Type Department Care Team (Late st Contact Info) Description 10/17/2021 8:30 AM EDT TH Visit (TeleHealth) Weight and Wellness at [address] [address] [facility] [place] [address] Adult BMI 37.0-37.9 kg/sq m Social History [...] was at home at the following address: [address] [place] [address] Weight Today: Wt Readings from Last 3 [...] Loss History: See previous notes from this speech writer and [facility] provider for full account Typical Dietary Intake: 6am coffee 8am B: tajik muffin - 1 tsp jelly, butter L (skips): 44:30pm D (hungry): eat early D: pizza, ice [...] ?? Continue to work with sleep at [facility] ?? Goal 7 hours of sleep [...] [] Needs additional fuv scheduled with this speech writer in No follow-ups on file. (OR) [x] Currently scheduled for: [x] 1st consecutive monthly nutrition visit [x] 2nd consecutive monthly nutrition visit [x] 3rd consecutive monthly nutrition visit (OR) [] Patient has met requirement of 3 consecutive monthly nutrition visits but agrees that ongoing support would be helpful and feasible. Above determined to the best ability of this speech writer. Patient will contact bariatric surgery team for any official determination about about scheduling and insurance requirements ( ) Thank you Yessy Jonas MS, RDN LD 30 minutes were spent in visit today, including contact with patient, chart review, and documentation documented in this encounter Plan of Treatment Upcoming Encounters Date Type Department Care Team (Late st Contact Info) Description 02/01/2025 2:15 PM EDT Office Visit Dermatology at [facility] [address] [place] [address] Regina Rivas MD [facility] [place] [address] documented as of this encounter Goals Goal [...] adult documented in this encounter Care Teams Data Migration Lead Relationship Specialty Start Date End Date Carolynn Wisdom APRN [address] [place] [address] [address] [facility] [place] [address] PCP - General Family Medicine 03/08/20 documented as of this encounter
--- OUTSIDE RECORDS SUMMARY | 2024-01-29 15:39 | XMS_ITS | Encounter Summary ---
Author Organization [facility] Address [facility] [place] [address] Care Team Providers Care Residential Worker Name Role Phone Carolynn Wisdom APRN Primary Care Provider Encounter Details Date Type Department Care Team (Latest Contact Info) Description 01/03/2022 2:30 PM EDT TH Visit (TeleHealth) Weight and Wellness at [address] [address] Iliana Peterson, PhD [facility] [place] [address] Eating disorder, unspecified type Social History Tobacco [...] N [facility] AT [address] [address] Dept: [phone] 01/03/2022 2:04 PM Time spent with patient: 30 minutes Location: Telehealth. Melinda Goncalves gave permission for and was seen for today's appointment with a Telehealth visit. During this visit they were located at home in [place]. Melinda L Sleath is aware that for any urgent matter they can call [phone]. Attendees: Patient SESSION #: 3 After today's visit, patient will be re-evaluated for bariatric surgery by a different psychologistin [facility]. CHIEF COMPLAINT Emotional eating GOALS FOR [...] night after work No follow-up with this continuity writer at this time. Patient will be [...] at [facility] [address] [place] [address] Regina Rivas MD [facility] [place] [address] documented as of this encounter Goals Goal [...] type documented in this encounter Care Teams Residential Worker Relationship Specialty Start Date End Date Carolynn Wisdom APRN [address] [place] [address] PCP - General Family Medicine 03/08/20 documented as of this encounter
--- OUTSIDE RECORDS SUMMARY | 2024-01-29 15:39 | XMS_ITS | Encounter Summary ---
Author Organization [facility] [place] [address] Care Team Providers Care Vessel Engineer Name Role Phone MelodieCarolynn judd CANDE Primary Care Provider Encounter Details Date Type Department Care Team (Late st Contact Info) Description 09/05/2021 9:00 AM EST TH Visit (TeleHealth) Weight and Wellness at [address] [address] [facility] [place] [address] Adult BMI 38.0-38.9 kg/sq m Social History [...] was at home at the following address: [address] [place] [address] Weight Today: has scale, typically weighs daily [...] going to gym regularly, 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); after second child shot up in weight and never came down; 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; moved to [place] and started to gain again; has preference to starch/carbohydrates; daughter had bariatric surgery in last year; wants to try to lose weight before agreeing to bariatric surgery See previous notes from this music writer and [facility] provider for full account Typical Dietary Intake: Wakeup - 5:30, not always rested, not hungry; water, take medications 6 am B: 12oz coffee, 2 tbsp dallop /2 and 1/2 8-9 first feel hungry 8am B: 1.5 cups cereal - methodist oatmeal squares, 2% milk OR cymro muffin - wheat, peanut butter OR cream of wheat 1 packet - sugar free diced pears, milk 10am midmorning snack - grapes/watermelon OR ritz - 8 12:30/1:30 L: grapes/1/2 apple, ritz crackers - 8, 1/2 PBJ - wheat, grape jelly; yogurt - plain israeli yogurt; 5-6pm D: pizza - naan; frozen [...] ?? Continue to work with sleep at [facility] ?? 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 (OR) [x] Currently scheduled for: [x] 1st consecutive monthly nutrition visit [x] 2nd consecutive monthly nutrition visit [x] 3rd consecutive monthly nutrition visit (OR) [] Patient has met requirement of 3 consecutive monthly nutrition visits but agrees that ongoing support would be helpful and feasible. Above determined to the best ability of this music writer. Patient will contact bariatric surgery team [...] [facility] [address] [place] [address] Regina Rivas MD [facility] DR [place] [address] documented as of this encounter Goals Goal [...] adult documented in this encounter Care Teams Vessel Engineer Relationship Specialty Start Date End Date Carolynn Wisdom APRN [address] [place] [address] [address] [facility] 1 [place] [address] PCP - General Family Medicine 03/08/20 documented as of this encounter
--- OUTSIDE RECORDS SUMMARY | 2024-01-29 15:39 | XMS_ITS | Encounter Summary ---
Author Organization [facility] [place] [address] Care Team Providers Care Estimator Paperboard Boxes Name Role Phone Carolynn Wisdom REEFER TRUCK DRIVER Primary Care Provider Encounter Details Date Type Department Care Team (Late Contact Info) Description 04/02/2022 Telephone [place] [address] Anitha Cruz Social History Tobacco Use Types [...] at [address] [place] [address] Regina Rivas MD [facility] [place] [address] documented as of this encounter Goals Goal [...] on filedocumented in this encounter Care Teams Estimator Paperboard Boxes Relationship Specialty Start Date End Date Carolynn Wisdom APRN [address] [place] [place] [address] [address] [facility] 1 [place] [address] PCP - General Family Medicine 03/08/20 documented as of this encounter
--- OUTSIDE RECORDS SUMMARY | 2024-01-29 15:39 | XMS_ITS | Encounter Summary ---
Author Organization [facility] [place] [address] Care Team Providers Care Magistrate Judge Name Role Phone Carolynn Wisdom EXPERIMENTAL ELECTRONICS DEVELOPER Primary Care Provider Reason for Visit * Reason Comments Medication Management Encounter Details Date Type Department Care Team (Late st Contact Info) Description 04/02/2022 Specialty [place] [address] Christin Connors V, [facility] Social History Tobacco Use Types [...] PM EDT Office Visit Dermatology at [address] [place] [address] Regina Rivas MD [facility] [place] [address] documented as of this encounter Goals Goal [...] on filedocumented in this encounter Care Teams Magistrate Judge Relationship Specialty Start Date End Date Carolynn Wisdom APRN [address] [place] [address] PCP - General Family Medicine 03/08/20 documented as of this encounter
--- OUTSIDE RECORDS SUMMARY | 2024-01-29 15:39 | XMS_ITS | Encounter Summary ---
Author Organization [facility] [place] [address] Care Team Providers Care Rotary Shear Operator Name Role Phone Carolynn Wisdom ULTRASONIC WELDING MACHINE OPERATOR Primary Care Provider Encounter Details Date Type Department Care Team (Late st Contact Info) Description 03/21/2022 Telephone [place] [address] Anitha Cruz Social History Tobacco Use Types [...] at [address] [place] [address] Regina Rivas MD [facility] [place] [address] documented as of this encounter Goals Goal [...] Note: Continue to work with sleep at [facility] Goal 7 hours of sleep nightly. Recommend [...] on filedocumented in this encounter Care Teams Rotary Shear Operator Relationship Specialty Start Date End Date Carolynn Wisdom APRN [address] [place] [address] [address] [facility] 1 [place] [address] PCP - General Family Medicine 03/08/20 documented as of this encounter
--- OUTSIDE RECORDS SUMMARY | 2024-01-29 15:39 | XMS_ITS | Encounter Summary ---
Author Organization [facility] [place] [address] Care Team Providers Care Snagger Name Role Phone Carolynn Wisdom STAFF PHYSICIAN Primary Care Provider Reason for Visit * Reason Comments Prior Authorization Stelara 90mg/ml Syri nges Encounter Details Date Type Department Care Team (Late st Contact Info) Description 03/09/2022 Specialty [place] [address] Olga Perez, CLIENT HR MANAGER Social History Tobacco Use Types Packs/Day Years [...] 1960 Patient Address: [facility] [address] Phone: [phone] (home) Medication Name: STELARA 90 MG/ML SUBCUTANEOUS SYRINGE Medication ID: [id number] Subscriber Insurance: Unable to find Subscriber Insurance Comment: [facility](IRX) Fax: Physician: MAXI MASON Physician Comment: Sent Via: [facility] Oneal: [id number] Ref/Case/PA#: Medication Strength Frequency Requested: Stelara 90mg/ml, Inject 1ml subcutaneously every 10 weeks Qty/Day Supply: New Start: Change in Dose 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 Patient Notified of Denial: No Additional Information from insurance carrier. Please see below: None For any questions relating to this denial please reach out directly to your section's specialty pharmacist, or the specialty pharmacy team at [facility] Olga Perez 03/12/22 3:48 PM documented in this encounter Plan of Treatment Upcoming Encounters Date Type Department Care Team (Late st Contact Info) Description 02/01/2025 2:15 PM EDT Office Visit Dermatology at [address] [address] Regina Rivas MD [facility] [place] [address] documented as of this encounter Goals Goal [...] sleep time movement Lifestyle No Michelle Jaquez, STAFF PHYSICIAN Note: Exercise goal is 150 -300 min [...] on filedocumented in this encounter Care Teams Snagger Relationship Specialty Start Date End Date Carolynn Wisdom APRN [address] [place] [address] [address] [place] [address] PCP - General Family Medicine 03/08/20 documented as of this encounter
--- OUTSIDE RECORDS SUMMARY | 2024-01-29 15:39 | XMS_ITS | Encounter Summary ---
Author Organization [facility] [place] [address] Care Team Providers Care Crm Solution Architect Name Role Phone MelodieCarolynn judd CANDE Primary Care Provider Encounter Details Date Type Department Care Team (Late st Contact Info) Description 11/15/2021 Telephone Weight and Wellness at [address] [phone] Kailyn Peng, SPECIAL EDUCATION INCLUSION TEACHER Social History Tobacco Use Types Packs/Day Years Used Date Smoking Tobacco: Former Smokeless Tobacco: Never Sex and Gender Information Value Date Recorded Sex Assigned at Not on file Gender Identity Not on file Sexual Orientation Not on file documented as of this encounter Miscellaneous Notes * Telephone Encounter - Kailyn Peng CMA - 11/15/2021 3:43 PM EDT [facility] Billing Adjudicator Pre-telemedicine Visit Phone Note Melinda Goncalves 1960 [] Patient was not reached Patient was reached and the following information was reviewed/obtained per protocol: [x] Confirmed patient name and date of [x] Confirmed ZOOM downloaded and functioning [] ZOOM appointment link sent if no MyDH [x] Phone number to be reached is: [phone] REVIEW: [x] Review of patient medications completed Have you started on any NEW medications? [x] No [] Yes: [x] Confirmed preferred pharmacy: annemarie rick [facility] Reminders Your provider might ask you what [...] Dermatology at [facility] [address] [place] [phone] Regina Rivas MD [facility] DR [place] [address] documented as of this encounter Goals Goal [...] on filedocumented in this encounter Care Teams Crm Solution Architect Relationship Specialty Start Date End Date Carolynn Widsom APRN [address] [place] [address] [address] [facility] 1 [place] [address] PCP - General Family Medicine 03/08/20 documented as of this encounter
--- OUTSIDE RECORDS SUMMARY | 2024-01-29 15:39 | XMS_ITS | Encounter Summary ---
Author Organization [facility] Address [facility] [place] [address] Care Team Providers Care Windows Administrator Name Role Phone Carolynn Wisdom APRN Primary Care Provider Encounter Details Date Type Department Care Team (Latest Contact Info) Description 12/13/2021 2:30 PM EDT TH Visit (TeleHealth) Weight and Wellness at [address] [address] Iliana Peterson, PhD [facility] [place] [address] Eating disorder, unspecified type Social History Tobacco [...] N JO [facility] AT [address] [address] Dept: [phone] 12/13/2021 2:33 PM Time spent with patient: 30 minutes Location: Telehealth. Melinda Goncalves gave permission for and was seen for today's appointment with a Telehealth visit. During this visit they were located at home in [place]. Melinda L Sleath is aware that for any urgent matter they can call [phone]. Attendees: Patient SESSION #: 1 CHIEF COMPLAINT [...] 2:15 PM EDT Office Visit Dermatology at [facility] [address] [place] [address] Regina Rivas MD [facility] DR JO OLIVA-[place] [address] documented as of this encounter Goals Goal [...] type documented in this encounter Care Teams Windows Administrator Relationship Specialty Start Date End Date Carolynn Wisdom APRN [address] [place] [address] PCP - General Family Medicine 03/08/20 documented as of this encounter
--- OUTSIDE RECORDS SUMMARY | 2024-01-29 15:39 | XMS_ITS | Encounter Summary ---
Author Organization [facility] Address [facility] [place] [address] Care Team Providers Care Painter Ski Edge Name Role Phone Carolynn Wisdom PLATE PAINTER APPRENTICE Primary Care Provider Encounter Details Date Type Department Care Team (Late st Contact Info) Description 03/08/2022 Refill Dermatology at [facility] [address] [place] [address] Lisa Vasquez MD [facility] [place] [address] Social History Tobacco Use Types Packs/Day Years [...] Dermatology at [facility] [address] [place] [phone] Regina Rivas MD [facility] [place] [address] documented as of this encounter Goals Goal [...] on filedocumented in this encounter Care Teams Painter Ski Edge Relationship Specialty Start Date End Date Carolynn Wisdom APRN [address] [place] [address] PCP - General Family Medicine 03/08/20 documented as of this encounter
--- OUTSIDE RECORDS SUMMARY | 2024-01-29 15:39 | XMS_ITS | Encounter Summary ---
Author Organization [facility] [place] [address] Care Team Providers Care Tiller Worker Name Role Phone Carolynn Wisdom ELECTRON BEAM OPERATOR Primary Care Provider Encounter Details Date Type Department Care Team (Late st Contact Info) Description 07/07/2021 2:00 PM EST Notes [place] [address] Social History Tobacco Use Types Packs/Day Years [...] TO BARIATRIC SURGERY ON 07/07/2021 FOR [employer] documented in this encounter Plan of Treatment Upcoming Encounters Date Type Department Care Team (Late st Contact Info) Description 02/01/2025 2:15 PM EDT Office Visit Dermatology at [facility] [address] [place] [address] Regina Rivas MD [facility] [place] [address] documented as of this encounter Visit Diagnoses Not on filedocumented in this encounter Care Teams Tiller Worker Relationship Specialty Start Date End Date Carolynn Wisdom APRN [address] [place] [address] PCP - General Family Medicine 03/08/20 documented as of this encounter
--- OUTSIDE RECORDS SUMMARY | 2024-01-29 15:39 | XMS_ITS | Encounter Summary ---
Author Organization [facility] [place] [address] Care Team Providers Care Clinical Informatics Specialist Name Role Phone Carolynn Wisdom APRN Primary Care Provider [phone] Reason for Visit * Reason Comments Specialty Pharmacy Review Encounter Details Date Type Department Care Team (Late st Contact Info) Description 08/18/2021 Specialty [place] [address] Jean Slaughter, [facility] Social History Tobacco Use Types Packs/Day Years Used Date Smoking Tobacco: Former Smokeless Tobacco: Never Sex and Gender Information Value Date Recorded Sex Assigned at Not on file Gender Identity Not on file Sexual Orientation Not on file documented as of this encounter Progress Notes * Jean Slaughter - 08/18/2021 11:59 PM EST The [facility] has completed a benefits investigation for Melinda Goncalves to review their eligibility to fill at [facility]. Per patient's medication list they are prescribed STELARA 90 MG/ML and the medication is currently filled at the [facility]. documented in this encounter Plan of Treatment Upcoming Encounters Date Type Department Care Team (Late st Contact Info) Description 02/01/2025 2:15 PM EDT Office Visit Dermatology at [facility] [address] [place] [address] Regina Rivas MD [facility] [address] [place] [address] documented as of this encounter Goals Goal [...] filedocumented in this encounter Care Teams Clinical Informatics Specialist Relationship Specialty Start Date End Date Carolynn Wisdom APRN [address] [place], [place] [address] [place] [address] PCP - General Family Medicine 03/08/20 documented as of this encounter
--- OUTSIDE RECORDS SUMMARY | 2024-01-29 15:39 | XMS_ITS | Encounter Summary ---
Author Organization [facility] [address] Care Team Providers Care Client Sales And Service Officer Name Role Phone Carolynn Wisdom APRN Primary Care Provider Reason for Visit * Reason Comments Prior Authorization stelara 90mg/ml sosy Encounter Details Date Type Department Care Team (Late st Contact Info) Description 06/19/2021 Specialty [place] [address] Ibeth Bermudez, [facility] Social History Tobacco Use Types Packs/Day [...] Melinda Goncalves Patient : 1960 Patient Address: [address] [place] [phone] (home) Medication Name: STELARA 90 MG/ML SUBCUTANEOUS SYRINGE Medication ID: [id number] Subscriber Insurance: Ruel ATWOOD (N IS) Subscriber Insurance Comment: Phone: Fax: Physician: MAXI MASON Physician Comment: Sent Via: [facility] Oneal: [id number] Ref/Case/PA#: Medication Strength Frequency Requested: INJECT THE CONTENTS OF ONE SYRINGE (90 MG) SUBCUTANEOUSLY AT WEEKS 0, 4 AND EVERY 12 WEEKS THERAFTER Qty/Day Supply: 07/28 New Start: New to Therapy Diagnosis & ICD-10 Code: Psoriasis L40.9 Patient Notified: Yes Submission Notes: None Ibeth Roger 06/19/21 1:58 PM * Ibeth Roger - 06/19/2021 1:56 PM EST [facility], Prior Authorization Approval Medication Name: STELARA 90 MG/ML SUBCUTANEOUS SYRINGE Medication ID: [id number] Approval Dates: 06/19/2021 to 06/19/2022 Insurance requirements/notes: None Other Notes: None Case/Reference #: [id number] Approval notification Received via: Fax Copay: $0.00 Copay assistance: Copay Notes: Insurance mandated Pharmacy: D Pharmacy [facility] at [facility]: Yes Pharmacy staff will be reaching out to the patient to inform them of their medication's [facility]. If applicable, a pharmacist will speak with the patient to offer our specialty pharmacy services and to arrange delivery of their medication. Ibeth Roger 06/19/21 2:34 PM documented in this encounter Plan of Treatment Upcoming Encounters Date Type Department Care Team (Late st Contact Info) Description 02/01/2025 2:15 PM EDT Office Visit Dermatology at [facility] [address] [place] [address] Regina Rivas MD [facility] [place] [address] documented as of this encounter Visit Diagnoses Not on filedocumented in this encounter Care Teams Client Sales And Service Officer Relationship Specialty Start Date End Date Carolynn Wisdom APRN [address] [place] [address] PCP - General Family Medicine 03/08/20 documented as of this encounter
--- OUTSIDE RECORDS SUMMARY | 2024-01-29 15:39 | XMS_ITS | Encounter Summary ---
Author Organization [facility] Address [facility] [place] [address] Care Team Providers Care Toll Repairer Central Office Name Role Phone Carolynn Wisdom CANDE Primary Care Provider [phone] Encounter Details Date Type Department Care Team (Late st Contact Info) Description 01/09/2022 Refill Dermatology at [facility] [address] [place] [address] Lisa Vasquez MD [facility] [place] [address] Social History Tobacco Use Types Packs/Day Years [...] 2:15 PM EDT Office Visit Dermatology at [facility] [address] [place] [address] Regina Rivas MD [facility] [place] [address] documented as of this encounter Goals Goal Patient Goal Type Associated Problems Recent Progress Patient-Stated? Author meal timing/food choices/ bariatric behaviors Lifestyle On track(2021 11:38 AM EDT) No Leonid, Michelle L, PRIOR AUTHORIZATION TECHNICIAN Note: Work on eating more mindfully Try [...] track(2021 11:37 AM EDT) No Michelle Jaquez, PRIOR AUTHORIZATION TECHNICIAN Note: Mindfulness/deep breathing practice to reduce cortisol -try for at least 10 minutes a day sleep Lifestyle On track(2021 11:37 AM EDT) No Michelle Jaquez, PRIOR AUTHORIZATION TECHNICIAN Note: Continue to work with sleep at [facility] Goal 7 hours of sleep nightly. Recommend consistent sleep and wake times, avoid electronics within one hour of sleep time movement Lifestyle No Michelle Jaquez, PRIOR AUTHORIZATION TECHNICIAN Note: Exercise goal is 150 -300 min [...] on filedocumented in this encounter Care Teams Toll Repairer Central Office Relationship Specialty Start Date End Date Carolynn WisdomCANDE [address] [place] [address] PCP - General Family Medicine 03/08/20 documented as of this encounter
--- OUTSIDE RECORDS SUMMARY | 2024-01-29 15:39 | XMS_ITS | Encounter Summary ---
[place] [address] Care Team Providers Care Soil Technician Name Role Phone Carolynn Wisdom APRN Primary Care Provider [phone] Reason for Visit * Reason Comments Prior Authorization Stelara 90mg/ml sosy Encounter Details Date Type Department Care Team (Late st Contact Info) Description 04/03/2022 Specialty [place] [address] Ibeth Bermudez, [facility] Social History Tobacco Use Types Packs/Day [...] Melinda Goncalves Patient : 1960 Patient Address: [address] [place] [address] Phone: [phone] (home) Medication Name: STELARA 90 MG/ML SUBCUTANEOUS SYRINGE Medication ID: [id number] Subscriber Insurance: Subscriber Insurance Comment: [facility] (IRX) Phone: Fax: Physician: MAXI MASON Physician Comment: Sent Via: [facility] Oneal: [id number] Ref/Case/PA#: Medication Strength Frequency Requested: INJECT THE [...] Darnell Wiggins - 04/03/2022 9:17 AM EDT [facility], Prior Authorization Appeal Approval Medication Name: STELARA 90 MG/ML SUBCUTANEOUS SYRINGE Medication ID: Appeal Result: Approved Appeal Decision Date: 04/04/2022 12:28 PM Approved from: 03/09/2022 to 03/09/2023 Reference Number: [id number] Can be filled with: [facility] Fillable at [facility]: Yes Patient Notified of Approval: No Additional Information regarding this Appeal: None For any questions relating to this appeal please reach out directly to your section's specialty pharmacist. Darnell Wiggins 04/04/22 12:29 PM documented in this encounter Plan of Treatment Upcoming Encounters Date Type Department Care Team (Late st Contact Info) Description 02/01/2025 2:15 PM EDT Office Visit Dermatology at [address] [phone] Regina Rivas MD [facility] DR [place] [address] documented as of this encounter Goals Goal [...] Note: Continue to work with sleep at [facility] Goal 7 hours of sleep nightly. Recommend consistent sleep and wake times, avoid electronics within one hour of sleep time movement Lifestyle No Michelle Jaquez, FORESTRY ENGINEER Note: Exercise goal is 150 -300 [...] on filedocumented in this encounter Care Teams Soil Technician Relationship Specialty Start Date End Date Carolynn Wisdom APRN [address] [place] [address] [address] [facility] 1 [place] [address] PCP - General Family Medicine 03/08/20 documented as of this encounter
--- OUTSIDE RECORDS SUMMARY | 2024-01-29 15:39 | XMS_ITS | Encounter Summary ---
Author Organization [facility] Address [facility] [place] [address] Care Team Providers Care Social Work Faculty Member Name Role Phone MelodieCarolynn judd CANDE Primary Care Provider Encounter Details Date Type Department Care Team (Latest Contact Info) Description 11/16/2021 10:30 AM EDT TH Visit (TeleHealth) Weight and Wellness at [address] [address] Michelle Jaquez APRN [facility] DR JO [place] [address] Class 2 severe obesity due to excess [...] Singleton APRN - 11/16/2021 10:30 AM EDT [facility] Patient provided verbal consent prior to initiation of this telemedicine encounter and expressed understanding that the telemedicine visit may be billed similar to a clinic visit, pt was seen while in [facility] I spent a total of 32 minutes in discussion / counseling related to obesity, nutrition, bariatric surgery, medications, physical activity and obesity related co-morbidities as well as reviewing notesand labs, ordering medications, labs, charting and coordinating care. Patient Name: Melinda Goncalves Date of : 1960 Age: 61 y.o. Carolynn Wsidom APRN Thank you for referring Melinda Goncalves [...] and comorbidities. This is a follow-up [facility] visit for this 61 y.o. patient. Weight [...] study as concern for HEATHER based on [employer] Questionnaire. is working with [facility] - planning home study []? Psych [...] ?? Continue to work with sleep at [facility] ?? Goal 7 hours of [...] found for: FERRITIN No results found for: [id number] No results found for: 25OHVITD ASSESSMENT AND [...] psychologist. 2 min chart review 25 min [id number] Visit time 5 min Documentation time I [...] 2:15 PM EDT Office Visit Dermatology at [address] [address] Regina Rivas MD [facility] [place] [address] documented as of this encounter Goals Goal [...] Continue to work with sleep at [facility] Goal 7 hours of sleep [...] insulin documented in this encounter Care Teams Social Work Faculty Member Relationship Specialty Start Date End Date Carolynn Wisdom APRN [address] [place] [address] 1 [place] [address] PCP - General Family Medicine 03/08/20 documented as of this encounter
--- OUTSIDE RECORDS SUMMARY | 2024-01-29 15:39 | XMS_ITS | Encounter Summary ---
Author Organization [facility] Address [facility] [place] [address] Care Team Providers Care Case Technician Name Role Phone MelodieCarolynn judd CANDE Primary Care Provider Encounter Details Date Type Department Care Team (Late st Contact Info) Description 11/07/2021 8:30 AM EDT TH Visit (TeleHealth) Weight and Wellness at [address] [address] [facility] [place] [address] Adult BMI 37.0-37.9 kg/sq m Social History [...] Progress Notes * Yessy Jonas, RD - 11/07/2021 8:30 AM EDT Nutrition Intervention for Weight Management Initial RD visit with TAWANNA Jiménez 1960 Telehealth / telephone visit conducted while patient was at home at the following address: [address] [place] [address] Weight Today: Wt Readings from Last 3 [...] Loss History: See previous notes from this journalists and other writers and [facility] provider for full account Typical Dietary Intake: 3x/day 7am B: sip on smoothie shake - frozen fruit, milk, banana, protein powder OR 2-3 frozen strawberries, spinach, peanut butter powder, protein powder, banana, milk, 1/4 cup juice, 2tbsp yogurt - telugu vanilla OR 16 oz smoothie Lunch - [...] ?? Continue to work with sleep at [facility] ?? Goal 7 hours of sleep [...] [] Needs additional fuv scheduled with this journalists and other writers in No follow-ups on file. (OR) [x] Currently scheduled for: [x] 1st consecutive monthly nutrition visit [x] 2nd consecutive monthly nutrition visit [x] 3rd consecutive monthly nutrition visit (OR) [] Patient has met requirement of 3 consecutive monthly nutrition visits but agrees that ongoing support would be helpful and feasible. Above determined to the best ability of this journalists and other writers. Patient will contact bariatric surgery team for [...] 2:15 PM EDT Office Visit Dermatology at [address] [place] [address] Regina Rivas MD [facility] [place] [address] documented as of this encounter Goals Goal [...] Lifestyle On track(2021 11:37 AM EDT) No Michlele Jaquez APRN Note: Continue to work with [...] adult documented in this encounter Care Teams Case Technician Relationship Specialty Start Date End Date Melodiebitna CarolynnCANDE vega [address] [place] [address] PCP - General Family Medicine 03/08/20 documented as of this encounter
--- OUTSIDE RECORDS SUMMARY | 2024-01-29 15:39 | XMS_ITS | Encounter Summary ---
Author Organization [facility] Address [facility] [place] [address] Care Team Providers Care Issuing Operator Name Role Phone MelodieCarolynn judd CANDE Primary Care Provider [phone] Encounter Details Date Type Department Care Team (Late st Contact Info) Description 02/27/2022 12:00 PM EDT TH Visit (TeleHealth) Weight and Wellness at [address] [address] [facility] [place] [address] Adult BMI 37.0-37.9 kg/sq m Social History [...] at home at the following address: [address] [place] [phone] Weight Today: Wt Readings from Last 3 [...] Loss History: See previous notes from this senior medical writer and [facility] provider for full account Typical Dietary Intake: 2-3 meals/day B 9/10am: czech muffin, jam, coffee 2x with cream no [...] ?? Continue to work with sleep at [facility] ?? Goal 7 hours [...] [] Needs additional fuv scheduled with this senior medical writer in Return for no f/u needed. (OR) [] Currently scheduled for: [] 1st consecutive monthly nutrition visit [] 2nd consecutive monthly nutrition visit [] 3rd consecutive monthly nutrition visit (OR) [x] Patient has met requirement of 3 consecutive monthly nutrition visits Above determined to the best ability of this senior medical writer. Patient will contact bariatric surgery team [...] [facility] [address] [place] [phone] Regina Rivas MD [facility] DR JO AREVAL[place] [address] documented as of this encounter Goals Goal [...] track(2021 11:37 AM EDT) No Michelle Jaquez, METAL BONDING WORKER Note: Mindfulness/deep breathing practice to reduce cortisol -try for at least 10 minutes a day sleep Lifestyle On track(2021 11:37 AM EDT) No Michelle Jaquez, CANDE Note: Continue to work with sleep at [facility] Goal 7 hours of sleep nightly. Recommend consistent sleep and wake times, avoid electronics within one hour of sleep time movement Lifestyle No Michelle Jaquez, METAL BONDING WORKER Note: Exercise goal is 150 -300 min [...] adult documented in this encounter Care Teams Issuing Operator Relationship Specialty Start Date End Date Carolynn Wisdom APRN [address] [place] [address] [address] [facility] [address] [place] [address] PCP - General Family Medicine 03/08/20 documented as of this encounter
--- OUTSIDE RECORDS SUMMARY | 2024-01-29 15:39 | XMS_ITS | Encounter Summary ---
Author Organization [facility] Address [facility] [place] [address] Care Team Providers Care Plug Sorter Name Role Phone Carolynn Wisdom APRN Primary Care Provider [phone] Reason for Referral * Consultation (Routine) - Closed Specialty Diagnoses / Procedures Referred By Contac t Referred To Contact Weight and Wellness Diagnoses Class 2 severe obesity due to excess calories with serious comorbidity and body mass index (BMI) of 38.0 to 38.9 in adult Michelle Jaquez APRN [facility] [address] [facility] [place] [address] [facility] [address] [place] [address] Referral ID Status Reason Start Date Expiration Date V isits Requested Visits Authorized [id number] Closed Consult, Test & Treat 08/08/2021 08/08/2022 1 1 Reason for Visit * Consultation (Routine) - Closed Specialty Diagnoses / Procedures Referred By Contac t Referred To Contact Weight and Wellness Diagnoses Obesity, unspecified obesity Procedures pre-bariatric see notes Marjorie Holman VAMP CUT OUT WORKER [facility] [place] [address] [facility] [address] [place] [address] Referral ID Status Reason Start Date Expiration Date V isits Requested Visits Authorized [id number] Closed Consult, Test & Treat 07/13/2021 07/13/2022 1 1 Encounter Details Date Type Department Care Team (Latest Contact Info) Description 08/08/2021 9:00 AM EST TH Visit (TeleHealth) Weight and Wellness at [facility] [address] [place] [address] Michelle Jaquez, CANDE [facility] [address] Class 2 severe obesity due to excess [...] an off-label use.Qsymia is FDA approved for detention use. Regarding phentermine alone: Phentermine is approved [...] sleep [facility] [...] Meter Misc by NOT APPLICABLE route. Insulin Mallory, Disposable, 29 gauge Needle by NOT APPLICABLE [...] Jaquez APRN - 08/08/2021 9:00 AM EST [facility] Patient provided verbal consent prior to initiation of this telemedicine encounter and expressed understanding that the telemedicine visit may be billedsimilar to a clinic visit, pt was seen while in [place] I spent a total of 75 minutes [...] OF VISIT: Melinda Goncalves presented to the [facility] for a consultative visit regarding obesity management. [...] weights Sleep: evaluation for sleep apnea at [facility], consistent bed times Stress: consider counseling regularly Referrals: [x]Nutrition [x]Health elementary instructional coach []Sleep medicine []Bariatric surgery []GI []Behavioral [...] has decided on pursuing bariatric surgery ?? Meilnda was advised that weight loss from bariatric surgery depends on ability to eat a healthy diet detention after surgery. She is aware of our programmatic multi-disciplinary approach which includes two bariatric surgeons, as well as dietitians and obesity medicine specialist. She was advised that the final decision for procedure is made by the surgeon with input from the patient and team. Prospective patients are encouraged to thoroughly research bariatric surgery with [facility] website. Bariatric Surgery Program Requirements and further [...] study as concern for HEATHER based on [place] Questionnaire. is working with [facility] [] Psych consult -referral placed [x] [...] appropriate HISTORY OF PRESENT ILLNESS: Weight History: [facility] Weight History 08/08/2021 What is the most [...] - reviewed GLP1 agonists as good option [facility] Importance 08/08/2021 How important is it to you to make a change to improve your health? 9 How confident are you that you can make a change to improve your health? 8 Obesity related co-morbidities: Past Medical History 08/08/2021 Have you had any of the following medical problems? Diabetes, Thyroid disease Sleep: Sleeps well Circadian: []security guards dispatcher work []irregular sleep timings [x]Normal day/night schedule To bed: tends to fall asleep on the couch at night, working on not doing that Wake up: Frequency of awakenings at night:sometimes due to stress Dx/Treated for HEATHER? No- did meet with sleep medicine visit at [facility], planning a home study []S [x]T []O []P [x]B [x]A []N []G: [place] Sleep Apnea 08/08/2021 Please choose the correct [...] Do you have high blood pressure? No [place] Category I 0 (Negative) [place] Category I Result 0 (Negative) [place] Category 2 0 (Negative) [place] Category II Result 0 (Negative) [place] Category 3 0 (Negative) [place] Sleep Apnea Result 0 (Low Risk) Food Behaviors In your opinion do you eat a healthy diet? Not really-sugar addiction Tends to choose sweets, high carb foods Uses food as a reward Tends to eat dinner early (around 430p) Gets up in the morning and has 2 cups coffee (with half and half), cape verdean muffin, muffin, carbs In the past has had smoothie with lots of fruit 11-1p has lunch: yogurt, half a sandwich (PB and J, deli meat) Evening meal: faroese soup with cape verdean muffin, steak fries, baked potato with sour [...] [] skips meals [] Night eating Movement: [facility]: PAVS 08/08/2021 How many days during the [...] Fatigue, Hair loss, Diarrhea, Muscle pain, Depression [facility] PHQ-2 08/08/2021 Over the LAST 2 WEEKS, [...] Cancer Social History: Reviewed. 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 female with uncontrolled obesity who presented to [facility] today for medical evaluation. Diagnoses and all orders for this visit: Class 2 severe obesity due to excess calories with serious comorbidity and body mass index (BMI) of38.0 to 38.9 in adult - Amb Referral to [facility] Psych Evaluation Type 2 diabetes mellitus without [...] work with sleep at [facility] ?? Goal 7 hours of sleep nightly. ?? Recommend consistent sleep and wake times, avoid electronics within one hour of sleep time ??? stress management ?? Mindfulness/deep breathing practice to reduce cortisol -try for at least 10 minutes a day Care pathway: Pathway: [facility] PATHWAY - ADULT 08/08/2021 Pre- Bariatric Surgery Activate Return in about 2 months (around 10/06/2021) for COMMERCIAL REAL ESTATE ATTORNEY, gibran, RD, August, August, September, Bariatric, health elementary instructional coach. [facility] Initial Responses 08/08/2021 URICA - Readiness Score [...] TFEQ-Emotional Eating 72.22 Food Insecurity Score 2 [place] Category I Result 0 (Negative) [place] Category II Result 0 (Negative) [place] Category III 0 (Negative) [place] Sleep Apnea Total 0 (Low Risk) Schooling [...] 2:15 PM EDT Office Visit Dermatology at [facility] [address] [place] [address] Regina Rivas MD [facility] [place] [address] Scheduled Referrals Name Type Priority Associated Diagnoses Orde r Schedule Amb Referral to [facility] Psych Evaluation Outpatient Referral Routine Class [...] time movement Lifestyle No Leonid, Michelle L, VAMP CUT OUT WORKER Note: Exercise goal is 150 -300 [...] education documented in this encounter Care Teams Plug Sorter Relationship Specialty Start Date End Date Carolynn Wisdom APRN [address] [place] [address] PCP - General Family Medicine 03/08/20 documented as of this encounter
--- OUTSIDE RECORDS SUMMARY | 2024-01-29 15:39 | XMS_ITS | Encounter Summary ---
Author Organization [facility] Address [facility] [place] [address] Care Team Providers Care Medical Collections Representative Name Role Phone MelodieCarolynn judd ACRYLIC FABRICATOR Primary Care Provider Encounter Details Date Type Department Care Team (Late st Contact Info) Description 12/21/2021 9:30 AM EDT TH Visit (TeleHealth) Weight and Wellness at [address] [address] [facility] [place] [address] Adult BMI 36.0-36.9 kg/sq m Social History [...] Progress Notes * Yessy Jonas RD - 12/21/2021 9:30 AM EDT Nutrition Intervention for Weight Management Initial RD visit with TAWANNA Jiménez 1960 Telehealth / telephone visit conducted while patient was at home at the following address: [address] [place] [address] Weight Today: no new weight today Wt Readings from Last 3 Encounters: 11/16/21 96.2 kg (212 lb) 10/17/21 96.6 kg (213 lb) 09/05/21 99.7 kg (219 lb 12.8 oz) BMI Readings from Last 3 Encounters: 11/16/21 36.96 kg/m?? 10/17/21 37.14 kg/m?? 09/05/21 38.33 kg/m?? 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; sleep study can't get accomplished through [place], have to do it through [place], still trying to figure out; feel like treading water and not going anywhere - bariatric surgery in the fall; why do I have to do surgery to get to where I need to be?; going to bed an extra hour early, no animals in bedroom; Weight Loss History: See previous notes from this machine sign writer and [facility] provider for full account Typical Dietary Intake: last few weeks - eating whatever, adverse affect on sleep, energy, body, etc; eliminated sweet snacks 7:45/9am B: amharic muffin, peanut butter OR 2-3pm L: raisins/peanuts [...] ?? Continue to work with sleep at [facility] ?? Goal 7 hours [...] [] Needs additional fuv scheduled with this machine sign writer in No follow-ups on file. (OR) [] Currently scheduled for: [] 1st consecutive monthly nutrition visit [] 2nd consecutive monthly nutrition visit [] 3rd consecutive monthly nutrition visit (OR) [x] Patient has met requirement of 3 consecutive monthly nutrition visits but agrees that ongoing support would be helpful and feasible. Above determined to the best ability of this machine sign writer. Patient will contact bariatric surgery team [...] PM EDT Office Visit Dermatology at [facility] [address] [place] [phone] Regina Rivas MD [facility] [address] [place] [address] documented as of this encounter Goals Goal [...] adult documented in this encounter Care Teams Medical Collections Representative Relationship Specialty Start Date End Date Carolynn Wisdom APRN [address] [place] [address] [address] PCP - General Family Medicine 03/08/20 documented as of this encounter
--- OUTSIDE RECORDS SUMMARY | 2024-01-29 15:39 | XMS_ITS | Encounter Summary ---
[facility] [place] [address] Care Team Providers Care Chain Testing Machine Operator Name Role Phone Carolynn Wisdom NUCLEAR MEDICINE SPECIALIST Primary Care Provider Encounter Details Date Type Department Care Team (Late st Contact Info) Description 02/27/2022 [place]phone [place] [phone] Aisha Ramos Social History Tobacco Use Types [...] Rasmussen Sent: 02/27/2022 10:15 AM EDT To: [facility] General Surgery Nurse, # Subject: Bariatric Requirements Melinda Sim left a message requesting a call back to let her know where she stands for bariatric surgery. She has completed her sleep study. Thank you! Renetta, RN documented in this encounter Plan of Treatment Upcoming Encounters Date Type Department Care Team (Late st Contact Info) Description 02/01/2025 2:15 PM EDT Office Visit Dermatology at [facility] [address] [place] [address] Regina Rivas MD [facility] [place] [address] documented as of this encounter Goals Goal [...] track(2021 11:37 AM EDT) No Michelle Jaquez, NUCLEAR MEDICINE SPECIALIST Note: Mindfulness/deep breathing practice to reduce cortisol -try for at least 10 minutes a day sleep Lifestyle On track(2021 11:37 AM EDT) Michelle Tai, NUCLEAR MEDICINE SPECIALIST Note: Continue to work with sleep at [facility] Goal 7 hours of sleep nightly. Recommend consistent sleep and wake times, avoid electronics within one hour of sleep time movement Lifestyle No Michelle Jaquez, NUCLEAR MEDICINE SPECIALIST Note: Exercise goal is 150 -300 min [...] on filedocumented in this encounter Care Teams Chain Testing Machine Operator Relationship Specialty Start Date End Date Carolynn Wisdom APRN [address] [place] [address] PCP - General Family Medicine 03/08/20 documented as of this encounter
--- OUTSIDE RECORDS SUMMARY | 2024-01-29 15:39 | XMS_ITS | Encounter Summary ---
Author Organization [facility] [place] [address] Care Team Providers Care Campus Receptionist Name Role Phone MelodieCarolynn judd CANDE Primary Care Provider Encounter Details Date Type Department Care Team (Late st Contact Info) Description 12/01/2021 Telephone General Surgery at [facility] [place] [phone] Anitha Cruz Social History Tobacco Use Types [...] to see if she could come to [facility] for a HSAT as she went to a provider in [facility] for a sleep consult and a HSAT was recommended but her insurance wont cover a study done in [place]. I advised that she would need to call her insurance and get more clarification on why the study was being denied. Was it because HEATHER was not suspected in her initial consult and there was no supporting documentation to warrant the need for a study? Or was it simply denied for needing a [place] provider. Ifso, she needs to ask if they will cover another duplicated consult with so that she can go through the motions of getting a study done in [place]. She is going to call her insurance and get more details before proceeding with a sleep study. If she wants/needs to come to then a referral will need to be entered to [facility] sleep and connected to them for scheduling a consult documented in this encounter Plan of Treatment Upcoming Encounters Date Type Department Care Team (Late st Contact Info) Description 02/01/2025 2:15 PM EDT Office Visit Dermatology at [facility] [address] [place] [address] Regina Rivas MD [facility] [address] [place] [address] documented as of this encounter Goals Goal [...] sleep time movement Lifestyle No Michelle Jaquez, SLATE WORKER Note: Exercise goal is 150 -300 [...] on filedocumented in this encounter Care Teams Campus Receptionist Relationship Specialty Start Date End Date Carolynn Wisdom APRN [address] [place] [address] PCP - General Family Medicine 03/08/20 documented as of this encounter
--- OUTSIDE RECORDS SUMMARY | 2024-01-29 15:39 | XMS_ITS | Encounter Summary ---
Author Organization [facility] [place] [address] Care Team Providers Care Gifts Officer Name Role Phone Carolynn Wisdom APRN Primary Care Provider Reason for Visit * Reason Comments Specialty Pharmacy Review Stelara Encounter Details Date Type Department Care Team (Late st Contact Info) Description 03/30/2022 Specialty [place] [address] Eric Basurto CPHT Social History Tobacco Use [...] CPHT - 03/30/2022 7:20 AM EDT The [facility] has completed a benefits investigation for Melinda Goncalves to review their eligibility to fill at [facility]. Per patient's medication list they are prescribed Stelara 90mg/ml Syringe and the medication is able to be filled at the [facility]. The patient currently fills the medication through [facility]. documented in this encounter Plan of Treatment Upcoming Encounters Date Type Department Care Team (Late st Contact Info) Description 02/01/2025 2:15 PM EDT Office Visit Dermatology at [address] [place] [address] Regina Rivas MD [facility] [place] [address] documented as of this encounter Goals Goal [...] on filedocumented in this encounter Care Teams Gifts Officer Relationship Specialty Start Date End Date Carolynn Wisdom APRN [address] [place] [address] PCP - General Family Medicine 03/08/20 documented as of this encounter
--- OUTSIDE RECORDS SUMMARY | 2024-01-29 15:39 | XMS_ITS | Encounter Summary ---
Author Organization [facility] [place] [address] Care Team Providers Care Processor Grain Name Role Phone Carolynn Wisdom COMMERCIAL ACCOUNT MANAGER Primary Care Provider Reason for Visit * Reason Comments Medication Management Encounter Details Date Type Department Care Team (Late st Contact Info) Description 07/24/2021 Specialty [place] [address] Christin Connors V, [facility] Social History Tobacco Use Types Packs/Day Years Used Date Smoking Tobacco: Former Smokeless Tobacco: Never Sex and Gender Information Value Date Recorded Sex Assigned at Not on file Gender Identity Not on file Sexual Orientation Not on file documented as of this encounter Progress Notes * Christin Connors V [facility] - 07/24/2021 10:17 AM EST Clinical Management Plan: Refill Specialty Pharmacy Consultation; Christin Connors [facility] Comprehensive Medication Management (CMM) Melinda Singleton Sacha [...] Known Allergies Medication Reconciliation Discrepancies (compared to [facility] med list) No Specialty Pharmacy Refill Questionnaire [...] [facility] [address] [place] [address] Regina Rivas MD [facility] [place] [address] documented as of this encounter Visit Diagnoses Not on filedocumented in this encounter Care Teams Processor Grain Relationship Specialty Start Date End Date Carolynn Wisdom APRN [address] [place] [address] PCP - General Family Medicine 03/08/20 documented as of this encounter
--- OUTSIDE RECORDS SUMMARY | 2024-01-29 15:39 | XMS_ITS | Encounter Summary ---
Author Organization [facility] [place] [address] Care Team Providers Care Senior Mainframe Developer Name Role Phone Carolynn Wisdom LOSS PREVENTION AUDITOR Primary Care Provider [phone] Encounter Details Date Type Department Care Team (Latest Contact Info) Description 08/23/2021 4:30 PM EST TH Visit (TeleHealth) Weight and Wellness at [address] [address] Vicente Huynh Class 2 severe obesity due [...] you soon. Be well, Vicente Huynh Health Traveler Changer documented in this encounter Progress Notes * [...] ?? Continue to work with sleep at [facility] ?? Goal 7 hours of sleep nightly. [...] and bariatric behaviors Future follow-up with health trampoline team coach will address identified areas of concern: [...] increasing mindfulness throughout the day. Your health trampoline team coach is well-equipped to guide you to find something to look forward to everyday. Eating behaviors: many people benefit from restricting the hours in which they eat. You can choose an eating window of 8-12 hours to start. Make a pact with yourself that you will not take in anything with caloric content outside this window. Your second crusher may make further recommendations documented in this encounter Plan of Treatment Upcoming Encounters Date Type Department Care Team (Late st Contact Info) Description 02/01/2025 2:15 PM EDT Office Visit Dermatology at [facility] [address] [place] [address] Regina Rivas MD [facility] [place] [address] documented as of this encounter Goals Goal [...] Note: Continue to work with sleep at [facility] Goal 7 hours of sleep [...] adult documented in this encounter Care Teams Senior Mainframe Developer Relationship Specialty Start Date End Date Artis CANDE Pradhan [address] [place] [address] PCP - General Family Medicine 03/08/20 documented as of this encounter
--- OUTSIDE RECORDS SUMMARY | 2024-01-29 15:39 | XMS_ITS | Encounter Summary ---
Author Organization [facility] [place] [address] Care Team Providers Care Field Cane Scaler Helper Name Role Phone Carolynn Wisdom APRN Primary Care Provider Encounter Details Date Type Department Care Team (Late st Contact Info) Description 02/27/2022 Telephone [place] [phone] Aisha Ramos Social History Tobacco Use Types [...] 2:15 PM EDT Office Visit Dermatology at [facility] [address] [place] [phone] Regina Rivas MD [facility] [place] [address] documented as of this encounter [...] on filedocumented in this encounter Care Teams Field Cane Scaler Helper Relationship Specialty Start Date End Date Carolynn Wisdom APRN [address] [place] [address] PCP - General Family Medicine 03/08/20 documented as of this encounter
--- OUTSIDE RECORDS SUMMARY | 2024-01-29 15:40 | XMS_ITS | Encounter Summary ---
Author Organization [facility]ly [facility] [address] Care Team Providers Care Sustainability Director Name Role Phone Carolynn Wisdom TRIPLE VALVE TESTER Primary Care Provider Reason for Visit * Reason Comments Medication Management Encounter Details Date Type Department Care Team (Late st Contact Info) Description 04/06/2021 Specialty [place] [address] Roberta Ricci Mirela Social History Tobacco Use [...] at the appointment and that [facility] is providing recommendations (summary located at top of note) for provider review and follow up. Roberta Ricci RPH 04/06/21 2:33 PM documented in this encounter Plan of Treatment Upcoming Encounters Date Type Department Care Team (Late st Contact Info) Description 02/01/2025 2:15 PM EDT Office Visit Dermatology at [facility] [address] [place] [address] Regina Rivas MD [facility] [address] [place] [address] documented as of this encounter Visit Diagnoses Not on filedocumented in this encounter Care Teams Sustainability Director Relationship Specialty Start Date End Date Carolynn Wisdom APRN [address] [place] [address] PCP - General Family Medicine 03/08/20 documented as of this encounter
--- OUTSIDE RECORDS SUMMARY | 2024-01-29 15:40 | XMS_ITS | Encounter Summary ---
Author Organization [facility]ly [facility] Address [facility] [place] [address] Care Team Providers Care Jackscrew Man Name Role Phone Carolynn Wisdom APPLICATION ADMINISTRATOR Primary Care Provider Encounter Details Date Type Department Care Team (Late st Contact Info) Description 07/15/2020 [place] [phone] Karrie Haro MD [facility] [place] [address] Social History Tobacco Use Types Packs/Day Years Used Date Smoking Tobacco: Never Assessed Sex and Gender Information Value Date Recorded Sex Assigned at Not on file Gender Identity Not on file Sexual Orientation Not on file documented as of this encounter Miscellaneous Notes * Telephone Encounter - Karrie Haro MD - 07/15/2020 10:33 PM EST Call from Silvana Hall PA at [facility]. Patient presented w/ complete loss of vision of the left eye a week ago that lasted 15 min. Today she has had intermittent subjective symptoms of the appearance of glass bubbles in the upper outer quadrant of the left eye, not clearly a hemianopia, seems monocular, but an supervisor roving dideval her today, and was concerned for something neurological. 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 ESR and CRP normal. Carotids without stenosis. Would treat as an ischemic event (aspirin, statin, consider out patient echo per PCP). Follow up with PCP for referral to local neurologist at [facility] within the next week. Consider repeat MRI [...] 2:15 PM EDT Office Visit Dermatology at [address] [address] Regina Rivas MD [facility] [place] [address] documented as of this encounter Visit Diagnoses Not on filedocumented in this encounter Care Teams Jackscrew Man Relationship Specialty Start Date End Date Carolynn Wisdom APRN [address] [place] [address] PCP - General Family Medicine 03/08/20 documented as of this encounter
--- OUTSIDE RECORDS SUMMARY | 2024-01-29 15:40 | XMS_ITS | Encounter Summary ---
Author Organization [facility] Address [address] [place] [address] Care Team Providers Care Project Economist Name Role Phone Unavailable Primary Care Provider Unavailabl e Encounter Details Date Type Department Care Team (Late st Contact Info) Description 03/18/2020 Lab Requisition [facility] Pathology & Laboratory Medicine - [facility] [address] [place] [address] Carolynn Wisdom NP [address] [place] [address] Encounter for other general examination [...] types, PCR Negative Negative 03/25/2020 15:07 EDT [facility] Comment:No E6 or E7 mRNA is detected from HPV types 16,18,31,33,35,39,45,51,52,56,58,59,66, and 68 by termite control representative mediated amplification. Papanicolaou smear specimen (specimen) CERVIX UTERI STRUCTURE / Unknown 03/18/2020 10:00 EDT 03/24/2020 8:55 EDT Carolynn Adjovu GUIDANCE SECRETARY MICROBIOLOGY - GENER AL ORDERABLES Performing Organization Address City/[facility]/ZIP Co de Phone Number [facility] [address] [place] [address] * PAP TEST (03/18/2020 10:00 EDT) Specimens A. Cervix and/or Endocervix , ThinPrep Imaging System with Manual Evaluation 03/25/2020 15:07 EDT [facility] Specimen Adequacy Satisfactory for Evaluation - assessment of transformation zone component not applicable ( e.g. atrophy, vaginal sample, hysterectomy) Scant due to excessive inflammation 03/25/2020 15:07 EDT [facility] General Categorization Negative for intraepithelial lesion or malignancy 03/25/2020 15:07 EDT [facility] Attestation . 03/25/2020 15:07 T [facility] at 1507 Clinical History See below 03/25/20 20 15:07 EDT [facility] HPV The result for the Human Papillomavirus (HPV) Detection-High Risk Types is Negative. No E6 or E7 mRNA is detected from HPV types 16,18,31,33,35,39 ,45,51,52,56,58,5 9,66, and 68 by termite control representative mediated amplification.Noelle ting was performed on specimen [id number] and was resulted on 03/25/2020 1447 EDT by SVETA, LAB INSTRUMENT RESULTS IN 03/25/2020 15:07 EDT [facility] Performing Lab [facility] 03/25/2020 15:07 EDT [facility] Scanned Images 03/25/2020 15:07 EDT [facility] Papanicolaou smear specimen (specimen) CERVIX UTERI STRUCTURE / Unknown 03/18/2020 10:00 EDT 03/18/2020 15:35 EDT Carolynnji Wisdom GUIDANCE SECRETARY PATHOLOGY ORDERABLES [facility] [address] [place] [address] documented in this encounter Visit Diagnoses Diagnosis Encounter for other general examination documented in this encounter
--- OUTSIDE RECORDS SUMMARY | 2024-01-29 15:40 | XMS_ITS | Encounter Summary ---
Author Organization [facility] [place] [address] Care Team Providers Care Telephone Sterilizer Name Role Phone Carolynn Wisdom CERTIFIED MEDICAL DOSIMETRIST Primary Care Provider Reason for Visit * Reason Comments Specialty Refill Management Medication Management Encounter Details Date Type Department Care Team (Late st Contact Info) Description 02/15/2021 Specialty [place] [address] Viridiana Lemus Mirela Social History Tobacco Use [...] beneficiary Provider: plan sponsor pharmacist [facility] Method of Contact: by telephone Cognitive Ability: good Allergies and Drug intolerance: No Known Allergies Medication Reconciliation Discrepancies (compared to [facility] med list) -none Specialty Pharmacy Refill Questionnaire [...] 2:15 PM EDT Office Visit Dermatology at [facility] [address] [place] [address] Regina Rivas MD [facility] [place] [address] documented as of this encounter Visit Diagnoses Not on filedocumented in this encounter Care Teams Telephone Sterilizer Relationship Specialty Start Date End Date Carolynn Wisdom APRN [address] [place] [address] PCP - General Family Medicine 03/08/20 documented as of this encounter
--- OUTSIDE RECORDS SUMMARY | 2024-01-29 15:40 | XMS_ITS | Encounter Summary ---
Author Organization Formerly [facility] Address [facility] [place] [address] Care Team Providers Care Gun Tester Name Role Phone Carolynn Wisdom APRN Primary Care Provider Reason for Visit * Consultation (Routine) - Closed Specialty Diagnoses / Procedures Referred By Bay mckeon Referred To Contact Dermatology Diagnoses Erythema intertrigo Carolynn Wisdom APRN [address] [place] [address] [facility] Dermatology [address] [place] [address] Referral ID Status Reason Start Date Expiration Date V isits Requested Visits Authorized [id number] Closed Consult, Test & Treat [facility] PCP Updated and/or Approved 10/28/2020 10/28/2021 6 6 Encounter Details Date Type Department Care Team (Late st Contact Info) Description 06/19/2021 8:40 AM EST Office Visit Dermatology at [facility] [address] [place] [address] [facility] [place] [address] High risk medication use; Inverse [...] N ?? SOCIAL HISTORY Occupation: works in [employer] Hobbies: Other: Diagnosis or treatment significantly limited [...] oinment Protropic Ketoconazole cream Last visit at [facility] Derm: 02/14/2021 Last visit with this provider: [...] 2 months for psoriasis [x]Note routed to workers compensation legal secretary []Recall has been placed in scheduling system []Appointment scheduled at checkout Scribe attestation: Samantha Xavier has performed the documentation for this encounter in the presence of and acting as a scribe for Lisa Vasquez MD I performed the above scribed service and agree with the accuracy of the documentation in this encounter. Reviewed and signed by: Lisa Vasquez MD Dermatology [facility] Patient seen and evaluated with staff cell technician: Lucius Gamboa MD Dermatology [facility] * Lucius Gamboa MD - 06/19/2021 8:40 [...] 2:15 PM EDT Office Visit Dermatology at [facility] [address] [place] [address] [facility] [place] [address] documented as of this encounter Procedures Procedure [...] 9:55 AM EST) Neutrophils % 51.3 % [facility] Neutr Abs (ANC) 2.73 1.70 - 6.10 x10(3)/[facility] LABOR[facility] Lymphocytes % 31.7 % [facility] Lymphocytes Abs 1.7 0.9 - 3.2 x10(3)/[facility] LABORATORY Monocytes % 10.1 % [facility] Monocyte Abs 0.5 0.3 - 0.9 x10(3)/[facility] LABOR[facility]ORY Eosinophils % 5.4 % [facility] Eosinophils Abs 0.3 0.0 - 0.4 x10(3)/[facility] LABOR[facility] Basophils % 1.3 % [facility] Basophils Abs 0.1 0.0 - 0.1 x10(3)/[facility] LABORATORY Immature Gran % 0.20 % [facility] Comment: Immature granulocytes(IG's)percentage and absolute count will include metamyelocytes, myelocytes, and promyelocytes. Blood smears from CBCs yielding IG's will be scanned manually for concordance. If this scan disagrees with the automated IG or if promyelocytes are noted, a manual differential will be performed. Micki Gran Abs 0.01 0.00 - 0.04 x10(3)/[facility] LABORATORY Blood 06/19/2021 9:55 AM EST 06/19/2021 12:59 PM EST Narrative Resulting Agency Comment Spec In Lab Lisa Vasquez MD HEMATOLOGY ORDERAB LES [facility] [place] [address] * Hemogram (06/19/2021 9:55 AM EST) WBC 5.3 4.0 - 9.5 x10(3)/[facility] LABORATORY RBC 4.51 4.00 - 5.21 x10(6)/[facility] Hemoglobin 13.1 11.7 - 15.5 g/dL [facility] Hematocrit 40.3 35.7 - 45.8 % [facility] MCV 89.4 82.6 - 94.4 fL [facility] MCH 29.0 27.1 - 32.0 pg [facility] MCHC 32.5 31.7 - 35.0 g/dL [facility] Platelets 227 145 - 357 x10(3)/[facility] LABORATORY RDWSD 43.4 37.0 - 46.0 fL [facility] RDWCV 13.2 11.5 - 14.1 % [facility] MPV 11.3 7.6 - 12.9 fL [facility] nRBC % Auto 0.0 % [facility] nRBC Abs Auto 0.000 0.000 - 0.000 x10(3)/[facility]ORAT[facility] Blood 06/19/2021 9:55 AM EST 06/19/2021 12:59 PM EST Narrative Resulting Agency Comment Spec In Lab Lisa Vasquez MD HEMATOLOGY ORDERAB LES [facility] [address] * Comprehensive metabolic panel (non-fasting) (06/19/2021 9:55 AM EST) Glucose Lvl 187 65 - 199 mg/dL [facility] Comment:Diabetes: >=200 mg/d L plus symptoms BUN 10 8 - 18 mg/dL [facility] Creatinine 0.82 0.70 - 1.20 mg/dL [facility] Sodium 139 135 - 145 mmol/L [facility] Potassium 4.0 3.5 - 5.0 mmol/L [facility] Comment: Please note: ??Patients with WBC >100,000 may have falsely elevated Potassium levels. ??For accurate Potassium quantification in these patients send serum separator tube (gold top) for subsequent determinations. ??Contact the Clinical Chemistry Laboratory if there are any questions. Chloride 102 98 - 107 mmol/L [facility] CO2 26 22 - 31 mmol/L [facility] Anion Gap 11 5 - 15 mmol/L [facility] Calcium 9.7 8.5 - 10.5 mg/dL [facility] Total Protein 7.0 6.1 - 8.0 g/dL [facility] Albumin 4.3 3.2 - 5.2 g/dL [facility] AST 20 0 - 30 unit/L [facility] ALT 21 0 - 30 unit/L [facility] Alk Phos 64 35 - 105 unit/L [facility] Total Bilirubin 0.4 0.2 - 1.3 mg/dL [facility] Estimated GFR 78 >=60 mL/min/1. 73 m?? [facility] Comment: This patient? s estimated glomerular [...] In Lab Lucius Gamboa MD CHEMISTRY ORDERABLES [facility] [place] [address] documented in this encounter Visit Diagnoses Diagnosis High risk medication use Encounter for long-term (current) use of other medications Inverse psoriasis Other psoriasis Intertrigo Other specified erythematous condition documented in this encounter Care Teams Gun Tester Relationship Specialty Start Date End Date Carolynn Wisdom APRN [address] [place] [address] PCP - General Family Medicine 03/08/20 documented as of this encounter
--- OUTSIDE RECORDS SUMMARY | 2024-01-29 15:40 | XMS_ITS | Encounter Summary ---
Author Organization [facility] Address [facility] [place] [address] Care Team Providers Care Brim Plater Name Role Phone Carolynn Wisdom APRN Primary Care Provider Encounter Details Date Type Department Care Team (Late st Contact Info) Description 06/08/2021 Refill Dermatology at [facility] [address] [place] [phone] Lisa Vasquez MD [facility] [place] [address] Inverse psoriasis Social History Tobacco Use Types [...] 2:15 PM EDT Office Visit Dermatology at [facility] [address] [place] [address] Regina Rivas MD [facility] [place] [address] documented as of this encounter Visit Diagnoses Diagnosis Inverse psoriasis Other psoriasis documented in this encounter Care Teams Brim Plater Relationship Specialty Start Date End Date Carolynn Wisdom APRN [address] [place] [address] [place] [address] PCP - General Family Medicine 03/08/20 documented as of this encounter
--- OUTSIDE RECORDS SUMMARY | 2024-01-29 15:40 | XMS_ITS | Encounter Summary ---
Author Organization [facility] [place] [address] Care Team Providers Care Bus Aide Name Role Phone Reginaldomarcus Carolynn CASTELLON Primary Care Provider [phone] Encounter Details Date Type Department Care Team (Late st Contact Info) Description 04/08/2020 8:21 AM EDT - 04/08/2020 11:59 PM EDT Hospital [facility] [place] [facility] [place] [address] Carolynn Wisdom APRN [address] [place] [address] Encounter for screening mammogram for [...] [facility] [address] [place] [address] Regina Rivas MD [facility] [place] [address] documented as of this encounter Procedures Procedure [...] Center. BIRADS CATEGORY 1: NEGATIVE Carolynn Adjovu TEST PULLER IMG MAMMO ORDERABLE S documented in this encounter Visit Diagnoses Diagnosis Encounter for screening mammogram for malignant neoplasm of breast Other screening mammogram documented in this encounter Care Teams Bus Aide Relationship Specialty Start Date End Date Carolynn Wisdom APRN [address] [place] [address] PCP - General Family Medicine 03/08/20 documented as of this encounter
--- OUTSIDE RECORDS SUMMARY | 2024-01-29 15:40 | XMS_ITS | Encounter Summary ---
Author Organization [facility] Address [address] [place] [address] Care Team Providers Care Industrial Electrical Technician Name Role Phone Unavailable Primary Care Provider Unavailabl e Encounter Details Date Type Department Care Team (Late st Contact Info) Description 07/04/2022 Lab Requisition [facility] Pathology [facility] [address] [place] [address] Outr Resulting Lab, Provider Social History Tobacco [...] Quantiferon Interpretation Negative Negative 07/05/2022 14:06 EST [facility] Comment:No interferon-gamma response to M. tuberculosis antigens was detected. ??Infection with M. tuberculosis is unlikely. A single negative result does not exclude infection with M. tuberculosis. ??In patients at high risk for M. tuberculosis infection, a second test should be considered. TB1 Ag minus Nil 0.03 IU/ml 07/05/19 14:06 EST [facility] TB2 Ag minus Nil 0.05 IU/mL 07/05/19 14:06 EST [facility] Blood VENOUS BLOOD / Unknown 07/03/2022 8:53 EST 07/05/2022 11:40 EST Narrative [facility] - 07/05/2022 14:06 EST Results were obtained with the [employer] QuantiFERON-TB Gold Plus CLIA. New platform in use 03/08/2021 Provider Outr Resulting Lab IMMUNOLOGY A ND SEROLOGY ORDERABLES Performing Organization Address [facility] de Phone Number [facility] [address] [place] [address] * QUANTIFERON MITOGEN (PERFORMABLE) (07/03/2022 8:53 EST) Blood VENOUS BLOOD / Unknown 07/03/2022 8:53 EST 07/04/2022 16:26 EST Provider Outr Resulting Lab IMMUNOLOGY A ND SEROLOGY ORDERABLES Performing Organization Address City/[facility] Co de Phone Number [facility] [address] [place] [address] * QUANTIFERON TB2 (PERFORMABLE) (07/03/2022 8:53 EST) Blood VENOUS BLOOD / Unknown 07/03/2022 8:53 EST 07/04/2022 16:26 EST Provider Outr Resulting Lab IMMUNOLOGY A ND SEROLOGY ORDERABLES Performing Organization Address [facility] Co de Phone Number [facility] [address] [place] [address] * QUANTIFERON TB1 (PERFORMABLE) (07/03/2022 8:53 EST) Blood VENOUS BLOOD / Unknown 07/03/2022 8:53 EST 07/04/2022 16:26 EST Provider Outr Resulting Lab IMMUNOLOGY A ND SEROLOGY ORDERABLES Performing Organization Address [facility] de Phone Number [facility] [address] [place] [address] * QUANTIFERON NIL (PERFORMABLE) (07/03/2022 8:53 EST) Blood VENOUS BLOOD / Unknown 07/03/2022 8:53 EST 07/04/2022 16:26 EST Provider Outr Resulting Lab IMMUNOLOGY A ND SEROLOGY ORDERABLES Performing Organization Address [facility] Co de Phone Number [facility] [address] [place] [address] documented in this encounter Visit Diagnoses Not on filedocumented in this encounter
--- OUTSIDE RECORDS SUMMARY | 2024-01-29 15:40 | XMS_ITS | Encounter Summary ---
Author Organization [facility] [place] [address] Care Team Providers Care Detailer Furniture Name Role Phone Carolynn Wisdom HOTEL DINING ROOM CASHIER Primary Care Provider Reason for Visit * Reason Comments Medication Refill Patient Education Encounter Details Date Type Department Care Team (Late Contact Info) Description 06/19/2021 Specialty [place] [address] Roberta Ricci RPH Social History Tobacco Use [...] Requirements: no Medication Reconciliation Discrepancies (compared to [facility] med list) -none Medication List: Current Outpatient [...] face. 60 g0 ??? Adalimumab (Humira Pen Jsau-Elkthh-Oqgc HS) 40 mg/0.8 mL Pen Injector Kit [...] specialty services: Yes Patient accepted offer to counseling case manager: select all, adherence/missed doses, cost of medications/cost [...] Time spent: 16-30 min Treatment Outcomes 06/20/2021 1354 Disease progression: Stable Patient Overall Status: Stable [...] Social Assessment: Does patient have a primary out of school hours care worker: No Does patient have an emergency contact on file: Yes Does patient need referral to social media senior associate: No Does patient need referral to advocacy [...] Yes Date Confirmed: 11/23/20 Confirmation: Signature in [facility] Specialty Med Adherence Patient Demonstrates [...] at the appointment and that [facility] isproviding recommendations (summary located at top of note) for provider review and follow up. Roberta Ricci RPH 06/20/21 2:59 PM documented in this encounter Plan of Treatment Upcoming Encounters Date Type Department Care Team (Late st Contact Info) Description 02/01/2025 2:15 PM EDT Office Visit Dermatology at [facility] [address] [place] [address] Regina Rivas MD [facility] [place] [address] documented as of this encounter Visit Diagnoses Not on filedocumented in this encounter Care Teams Detailer Furniture Relationship Specialty Start Date End Date Carolynn Wisdom APRN [facility] [address] [place] [address] PCP - General Family Medicine 03/08/20 documented as of this encounter
--- OUTSIDE RECORDS SUMMARY | 2024-01-29 15:40 | XMS_ITS | Referral Summary ---
Author Organization [facility] Address [address] [place] [address] Care Team Providers Care Grinder Watch Parts Name Role Phone Unavailable Primary Care Provider [...]
--- OUTSIDE RECORDS SUMMARY | 2024-01-29 15:40 | XMS_ITS | Encounter Summary ---
Author Organization [facility] Address [facility] [place] [address] Care Team Providers Care Inspector Assemblies And Installations Name Role Phone Carolynn Wisdom APRN Primary Care Provider Encounter Details Date Type Department Care Team (Late st Contact Info) Description 12/15/2020 Refill Dermatology at [facility] [address] [place] [address] Lisa Vasquez MD [facility] [place] [address] Inverse psoriasis Social History Tobacco Use Types [...] 2:15 PM EDT Office Visit Dermatology at [facility] [address] [place] [address] Regina Rivas MD [facility] [place] [address] documented as of this encounter Visit Diagnoses Diagnosis Inverse psoriasis Other psoriasis documented in this encounter Care Teams Inspector Assemblies And Installations Relationship Specialty Start Date End Date Carolynn Wisdom APRN [address] [place] [address] [address] [place] [address] PCP - General Family Medicine 03/08/20 documented as of this encounter
--- OUTSIDE RECORDS SUMMARY | 2024-01-29 15:40 | XMS_ITS | Encounter Summary ---
Author Organization [facility] [place] [address] Care Team Providers Care Bilingual Middle School Teacher Name Role Phone Carolynn Wisdom APRN Primary Care Provider Reason for Visit * Reason Comments Specialty Pharmacy Review Encounter Details Date Type Department Care Team (Late st Contact Info) Description 02/14/2021 Specialty [place] [address] Nisreen Baires Social History Tobacco Use Types Packs/Day Years Used Date Smoking Tobacco: Former Smokeless Tobacco: Never Sex and Gender Information Value Date Recorded Sex Assigned at Not on file Gender Identity Not on file Sexual Orientation Not on file documented as of this encounter Progress Notes * Nisreen Baires - 02/14/2021 11:59 PM EDT The [facility] has completed a benefits investigation for Melinda Goncalves to review their eligibility to fill at [facility]. Per patient's medication list they are prescribed Humira 40mg/0.8ml PNKT and the medication is currently filled at the [facility]. documented in this encounter Plan of Treatment Upcoming Encounters Date Type Department Care Team (Late st Contact Info) Description 02/01/2025 2:15 PM EDT Office Visit Dermatology at [facility] [address] [place] [address] Regina Rivas MD [facility] [place] [address] documented as of this encounter Visit Diagnoses Not on filedocumented in this encounter Care Teams Bilingual Middle School Teacher Relationship Specialty Start Date End Date ReginaldomarcusKrystalCarolynnCANDE vega [address] [place] [address] PCP - General Family Medicine 03/08/20 documented as of this encounter
--- OUTSIDE RECORDS SUMMARY | 2024-01-29 15:40 | XMS_ITS | Encounter Summary ---
Author Organization [facility] Address [address] [place] [address] Care Team Providers Care Press Operator Assistant Name Role Phone Unavailable Primary Care Provider Unavailabl e Encounter Details Date Type Department Care Team (Late st Contact Info) Description 12/21/2020 Lab Requisition [facility] Pathology & Laboratory Medicine - [facility] [address] [place] [address] Outr Resulting Lab, Provider Social History Tobacco [...] Priority Date/Time Associated Diagnosis Comments ZZCOVID-19 TEST [facility] PCR Today 12/20/2020 11:47 EDT COVID-19 TESTING Routine 12/20/2020 11:4 7 EDT documented in this encounter Results * [facility] (12/20/2020 11:47 EDT) Swab ENTIRE NASOPHARYNX / Unknown 12/20/2020 11:47 EDT 12/21/2020 15:35 EDT Provider Outr Resulting Lab MICROBIOLOGY - GENERAL ORDERABLES [facility] [address] [place] [address] * COVID-19 TESTING (12/20/2020 11:47 EDT) COVID-19 rt-PCR Result Negative Negative 12/22/2020 13:49 EDT [facility] Comment: This test has not [...] developed and its performance characteristics determined by [facility]. It has not been cleared or approved [...] defined by the FDA Performed on the Hilosofto 7 Flex RT-PCR System. Performing Lab [facility] 12/22/2020 13:49 EDT [facility] Swab 12/20/2020 11:4 7 EDT 12/21/2020 15:35 EDT Provider Outr Resulting Lab MICROBIOLOGY - GENERAL ORDERABLES [facility] [address] [place] [address] documented in this encounter Visit Diagnoses Not on filedocumented in this encounter
--- OUTSIDE RECORDS SUMMARY | 2024-01-29 15:40 | XMS_ITS ---
Author Organization [facility] [place] [address] Care Team Providers Care Brick Siding Applicator Name Role Phone Carolynn Wisdom APRN Primary Care Provider Status:Enrolled (Active) Start date:03/02/2021 Enrollment date:03/02/2021 Enrollment reason:Enrolled - Currently Fills with Specialty Current support & services provided:Clinical Management, Refill Management Linked medications:ustekinumab (Active) Linked problems:Inverse psoriasis (Active) Continued Care and Services Coordination
--- OUTSIDE RECORDS SUMMARY | 2024-01-29 15:40 | XMS_ITS | Encounter Summary ---
Author Organization [facility] Address [facility] [place] [address] Care Team Providers Care Group Leader Semiconductor Testing Name Role Phone Carolynn Wisdom APRN Primary Care Provider Encounter Details Date Type Department Care Team (Late st Contact Info) Description 11/21/2020 Specialty [place] [address] Oscar Mariano, [facility] Social History Tobacco Use Types Packs/Day [...] 2:15 PM EDT Office Visit Dermatology at [facility] [address] [place] [address] Regina Rivas MD [facility] [place] [address] documented as of this encounter Visit Diagnoses Not on filedocumented in this encounter Care Teams Group Leader Semiconductor Testing Relationship Specialty Start Date End Date Carolynn Wisdom APRN [address] [place] [address] PCP - General Family Medicine 03/08/20 documented as of this encounter
--- OUTSIDE RECORDS SUMMARY | 2024-01-29 15:40 | XMS_ITS | Encounter Summary ---
Author Organization [facility] [place] [address] Care Team Providers Care Tankman Name Role Phone Carolynn Wisdom APRN Primary Care Provider [phone] Reason for Visit * Reason Comments Specialty Pharmacy Review Encounter Details Date Type Department Care Team (Late st Contact Info) Description 11/16/2020 Specialty [place] [address] Nisreen Baires Social History Tobacco Use Types Packs/Day Years Used Date Smoking Tobacco: Former Smokeless Tobacco: Never Sex and Gender Information Value Date Recorded Sex Assigned at Not on file Gender Identity Not on file Sexual Orientation Not on file documented as of this encounter Progress Notes * Nisreen Baires - 11/16/2020 11:59 PM EDT The [facility] has completed a benefits investigation for Melinda Goncalves to review their eligibility to fill at [facility]. Per patient's medication list they are prescribed HUMIRA PEN 40 MG/0.8 ML and the medication is able to be filled at the [facility]. documented in this encounter Plan of Treatment Upcoming Encounters Date Type Department Care Team (Late st Contact Info) Description 02/01/2025 2:15 PM EDT Office Visit Dermatology at [facility] [address] [place] [address] Regina Rivas MD [facility] [address] [place] [address] documented as of this encounter Visit Diagnoses Not on filedocumented in this encounter Care Teams Tankman Relationship Specialty Start Date End Date Carolynn Wisdom APRN [address] [place] [address] PCP - General Family Medicine 03/08/20 documented as of this encounter
--- OUTSIDE RECORDS SUMMARY | 2024-01-29 15:40 | XMS_ITS | Encounter Summary ---
Author Organization [facility] [place] [address] Care Team Providers Care Chili Pepper Grinder Name Role Phone MelodieCarolynn judd APRN Primary Care Provider Encounter Details Date Type Department Care Team (Late st Contact Info) Description 07/15/2020 9:15 PM EST Ancillary Procedure [place] [address] Carolynn Wisdom APRN [address] [place], [place] [address] Social History Tobacco Use Types Packs/Day Years [...] PM EDT Office Visit Dermatology at [facility] [address] [place] [address] Regina Rivas MD [facility] [place] [address] documented as of this encounter Procedures Procedure [...] FILM LIBRARY OR DERABLES Performing Organization Address City/State/[facility] Co de Phone Number [place], [place] documented in this encounter Visit Diagnoses Not on filedocumented in this encounter Care Teams Chili Pepper Grinder Relationship Specialty Start Date End Date Carolynn Wisdom APRN [address] [place] [address] PCP - General Family Medicine 03/08/20 documented as of this encounter
--- OUTSIDE RECORDS SUMMARY | 2024-01-29 15:40 | XMS_ITS | Encounter Summary ---
Author Organization [facility] [place] [address] Care Team Providers Care Spool Cleaner Name Role Phone Carolynn Wisdom APRN Primary Care Provider [phone] Reason for Visit * Reason Comments Medication Management Humira Medication Refill Humira Encounter Details Date Type Department Care Team (Late st Contact Info) Description 12/15/2020 Specialty [place] [address] Vicente Pond, [facility] Social History Tobacco Use Types Packs/Day Years Used Date Smoking Tobacco: Former Smokeless Tobacco: Never Sex and Gender Information Value Date Recorded Sex Assigned at Not on file Gender Identity Not on file Sexual Orientation Not on file documented as of this encounter Progress Notes * Vicente Pond [facility] - 12/15/2020 4:03 PM EDT Specialty Pharmacy Consultation; Vicente Pond [facility] Comprehensive Medication Management (CMM) Melinda Goncalves Diagnosis: [...] calculate BMI. Medication Reconciliation Discrepancies (compared to [facility] med list) no Medication Adherence Patient reported [...] Sig Dispense Refill ??? Adalimumab (Humira Pen Lqdn-Zimapa-Oiib HS) 40 mg/0.8 mL Pen Injector Kit [...] beneficiary Provider: plan sponsor pharmacist Visit Type: [facility] Follow-up Method of Contact: by telephone Cognitive [...] counter products discussed, reminder to refill or picking machine operator helper medication discussed Drug Medication Management Summary Topics [...] counter products discussed, reminder to refill or picking machine operator helper medication discussed Treatment Outcomes No data found [...] Assessment: Does the patient have a primary career coordinator? no Does the patient have an emergency contact on file: Yes Does patient need referral to medical social consultant: No Does patient need referral to [...] provider review and follow up. Vicente Pond [facility] 12/15/20 4:06 PM documented in this encounter Plan of Treatment Upcoming Encounters Date Type Department Care Team (Late st Contact Info) Description 02/01/2025 2:15 PM EDT Office Visit Dermatology at [address] [place] [address] Regina Rivas MD [facility] [place] [address] documented as of this encounter Visit Diagnoses Not on filedocumented in this encounter Care Teams Spool Cleaner Relationship Specialty Start Date End Date Carolynn Wisdom APRN [address] [place] [address] [address] [facility] [address] [place] [address] PCP - General Family Medicine 03/08/20 documented as of this encounter
--- OUTSIDE RECORDS SUMMARY | 2024-01-29 15:40 | XMS_ITS | Encounter Summary ---
Author Organization [facility] Address [facility] [place] [address] Care Team Providers Care Arrow Point Attacher Name Role Phone Carolynn Wisdom APRN Primary Care Provider Encounter Details Date Type Department Care Team (Late st Contact Info) Description 07/15/2020 [place] [address] Karrie Haro MD [facility] [place] [address] Social History Tobacco Use Types Packs/Day Years [...] 2:15 PM EDT Office Visit Dermatology at [facility] [address] [place] [address] Regina Rivas MD [facility] [address] [place] [address] documented as of this encounter Visit Diagnoses Not on filedocumented in this encounter Care Teams Arrow Point Attacher Relationship Specialty Start Date End Date Carolynn Wisdom APRN [facility] [address] [place] [address] PCP - General Family Medicine 03/08/20 documented as of this encounter
--- OUTSIDE RECORDS SUMMARY | 2024-01-29 15:40 | XMS_ITS | Encounter Summary ---
Author Organization [facility] [place] [address] Care Team Providers Care Lehr Stripper Name Role Phone Carolynn Wisdom CLIENT ONBOARDING ANALYST Primary Care Provider Reason for Visit * Reason Comments Medication Management Patient Education Encounter Details Date Type Department Care Team (Late Contact Info) Description 11/16/2020 Specialty [place] [address] Roberta Ricci RPH Social History Tobacco Use [...] calculate BMI. Medication Reconciliation Discrepancies (compared to [facility] med list) -none Medication List: Current Outpatient [...] Does the patient have a primary career technical supervisor? no Does the patient have an emergency contact on file: Yes Does patient need referral to medical social worker: No Does patient need referral [...] [facility] [address] [place] [address] Regina Rivas MD [facility] [place] [address] documented as of this encounter Visit Diagnoses Not on filedocumented in this encounter Care Teams Lehr Stripper Relationship Specialty Start Date End Date Artis CANDE Pradhan [address] [place] [address] PCP - General Family Medicine 03/08/20 documented as of this encounter
--- OUTSIDE RECORDS SUMMARY | 2024-01-29 15:40 | XMS_ITS | Encounter Summary ---
Author Organization [facility] Address [facility] [place] [address] Care Team Providers Care Electrolysist Name Role Phone Carolynn Wisdom APRN Primary Care Provider [phone] Reason for Visit * Consultation (Routine) - Closed Specialty Diagnoses / Procedures Referred By Bay mckeon Referred To Contact Dermatology Diagnoses Erythema intertrigo Carolynn Wisdom APRN [address] [place] [address] [facility] Dermatology [address] [place] [address] Referral ID Status Reason Start Date Expiration Date V isits Requested Visits Authorized [id number] Closed Consult, Test & Treat Connection Center PCP Updated and/or Approved 10/28/2020 10/28/2021 6 6 Encounter Details Date Type Department Care Team (Late st Contact Info) Description 11/16/2020 9:40 AM EDT Office Visit Dermatology at [facility] [address] [place] [address] Lisa Vasquez MD [facility] [place] [address] Inverse psoriasis; High risk medication use; Neoplasm [...] y.o. Patient is referred in consultation at [facility] for erythema intertrigo. Patient reports of scaling [...] and signed by: Lisa Vasquez MD Dermatology [facility] Patient seen and evaluated with staff z os mainframe systems programmer: Emmy Nava MD Department of Dermatology [facility] * Emmy Nava MD - 11/16/2020 9:40 [...] [facility] [address] [place] [address] Regina Rivas MD [facility] [place] [address] documented as of this encounter Procedures Procedure [...] Surgical Pathology Report (11/16/2020 1:49 PM EDT) FINAL DIAGNOSIS (AP) [id number] ? Location: [facility] The signing pathologist has (i) examined the relevant preparation(s) for the specimen(s) and (ii) rendered or confirmed the diagnosis(es). . ?Surgical Pathology DIAGNOSIS Right lower abdomen, skin punch biopsy: - Psoriasiform dermatitis (see discussion) Electronically signed by: ?Guille Coleman MD Verified: ??11/28/2020 17:43 ??Dermatopathologist Performed at: ??-[facility] [place] Dept. of Pathology, [place], [place] DISCUSSION Overall, the findings are compatible [...] submitted in 1 cassette labeled A1. ??MLL 11/28/2020 5:43 PM EDT [facility] SPECIMEN FROM SKIN / Unknown 11/16/2020 1:49 PM EDT 11/16/2020 1:49 PM EDT Lisa Vasquez MD PATHOLOGY/CYTOLOGY ORDERABLES [facility] [place] [address] * Specimen to Pathology (11/16/2020 1:49 PM EDT) AP Specimen 11/16/2020 1:49 PM EDT 11/16/2020 1:49 PM EDT Narrative [facility] - 11/16/2020 1:49 PM EDT Specimen requisition ordered. ??Separate Pathology report to follow Emmy Nava MD PATHOLOGY/CYTOLOG Y ORDERABLES [facility] [place] [address] * Differential, Automated (11/16/2020 11:11 AM EDT) Neutrophils % 62.5 % [facility] Neutr Abs (ANC) 5.38 1.70 - 6.10 x10(3)/[facility] Lymphocytes % 27.5 % [facility] Lymphocytes Abs 2.4 0.9 - 3.2 x10(3)/[facility] Monocytes % 5.7 % [facility] Monocyte Abs 0.5 0.3 - 0.9 x10(3)/[facility] Eosinophils % 2.8 % [facility] Eosinophils Abs 0.2 0.0 - 0.4 x10(3)/[facility] Basophils % 1.3 % [facility] Basophils Abs 0.1 0.0 - 0.1 x10(3)/[facility] Immature Gran % 0.20 % [facility] Comment: Immature granulocytes(IG's)percentage and absolute count will include metamyelocytes, myelocytes, and promyelocytes. Blood smears from CBCs yielding IG's will be scanned manually for concordance. If this scan disagrees with the automated IG or if promyelocytes are noted, a manual differential will be performed. Micki Gran Abs 0.02 0.00 - 0.04 x10(3)/[facility] Blood 11/16/2020 11:1 1 AM EDT 11/16/2020 12:46 PM EDT Narrative Resulting Agency Comment Spec In Lab Lisa Vasquez MD HEMATOLOGY ORDERAB LES [facility] [place] [place] [address] * Hemogram (11/16/2020 11:11 AM EDT) Pathologist [facility] WBC 8.6 4.0 - 9.5 x10(3)/[facility] RBC 4.54 4.00 - 5.21 x10(6)/[facility] Hemoglobin 13.2 11.7 - 15.5 gm/dL [facility] Hematocrit 39.7 35.7 - 45.8 % [facility] MCV 87.4 82.6 - 94.4 [facility] MCH 29.1 27.1 - 32.0 pg [facility] MCHC 33.2 31.7 - 35.0 gm/dL [facility] Platelets 277 145 - 357 x10(3)/[facility] RDWSD 41.3 37.0 - 46.0 [facility] RDWCV 13.1 11.5 - 14.1 % [facility] MPV 11.1 7.6 - 12.9 [facility] nRBC % Auto 0.0 % [facility] nRBC Abs Auto 0.000 0.000 - 0.000 x10(3)/[facility] Blood 11/16/2020 11:1 1 AM EDT 11/16/2020 12:46 PM EDT Narrative Resulting Agency Comment Spec In Lab Lisa Vasquez MD HEMATOLOGY ORDERAB LES [facility] [place] [place] [address] * Comprehensive metabolic panel (non-fasting) (11/16/2020 11:11 AM EDT) Pathologist [facility] Glucose Lvl 165 65 - 199 mg/dL [facility] Comment:Diabetes: >=200 mg/d L plus symptoms BUN 14 8 - 18 mg/dL [facility] Creatinine 0.77 0.70 - 1.20 mg/dL [facility] Sodium 140 135 - 145 mmol/L [facility] Potassium 4.1 3.5 - 5.0 mmol/L [facility] Comment: Please note: ??Patients with WBC >100,000 may have falsely elevated Potassium levels. ??For accurate Potassium quantification in these patients send serum separator tube (gold top) for subsequent determinations. ??Contact the Clinical Chemistry Laboratory if there are any questions. Chloride 104 98 - 107 mmol/L [facility] CO2 25 22 - 31 mmol/L [facility] Anion Gap 11 5 - 15 mmol/L [facility] Calcium 9.4 8.5 - 10.5 mg/dL [facility] Total Protein 7.1 6.1 - 8.0 gm/dL [facility] Albumin 4.1 3.2 - 5.2 gm/dL [facility] AST 17 0 - 30 unit/L [facility] ALT 15 0 - 30 unit/L [facility] Alk Phos 70 35 - 105 unit/L [facility] Total Bilirubin 0.5 0.2 - 1.3 mg/dL [facility] Estimated GFR 85 >=60 mL/min/1. 73 m?? [facility] Comment: This patient? s [...] MD CHEMISTRY ORDERAB LES Performing Organization Address City/[facility]/ZIP Co de Phone Number [facility] [place] [address] * Hepatitis B Core Antibody, Total (11/16/2020 11:11 AM EDT) Hep B Core Ab Negative Negative [facility] Blood 11/16/2020 11:1 1 AM EDT 11/16/2020 12:49 PM EDT Narrative Resulting Agency Comment Spec In Lab Emmy Nava MD CHEMISTRY ORDERAB LES Performing Organization Address [facility] Co de Phone Number [facility] [place] [address] * Hepatitis B Surface Antibody (11/16/2020 11:11 AM EDT) HepB Surface Ab Quant <3.5 IU/L [facility] Comment: HepB Surface Ab Quant: Unvaccinated: < 8.5 IU/L Vaccinated: > 11.5 IU/L HepB Surface Ab Negative [facility] Comment: Patient is presumed to be not vaccinated or immune to HBV infection. Expected Results: Vaccinated: Positive Unvaccinated: Negative Blood 11/16/2020 11:1 1 AM EDT 11/16/2020 12:49 PM EDT Narrative Resulting Agency Comment Spec In Lab Emmy Nava MD IMMUNOLOGY ORDERA BLES Performing Organization Address [facility] Co de Phone Number [facility] [place] [address] * Hepatitis B Surface Antigen (11/16/2020 11:11 AM EDT) HepB Surface Ag Negative Negative [facility] Blood 11/16/2020 11:1 1 AM EDT 11/16/2020 12:49 PM EDT Narrative Resulting Agency Comment Spec In Lab Emmy Nava MD CHEMISTRY ORDERAB LES [facility] [place] [address] * QuantiFERON-TB Gold (11/16/2020 11:11 AM EDT) QFT Nil 0.020 IU/mL [facility] QFT TB Ag1-Nil 0.000 IU/mL [facility] QFT TB Ag2-Nil 0.000 IU/mL [facility] QFT Mitogen-Nil 8.160 IU/mL [facility] Quantiferon TB Negative Negative [facility] Quantiferon TB Interp M. [...] affect immune function, or other immunological factors. [facility] Comment: The performance of [...] MD CHEMISTRY ORDERAB LES Performing Organization Address City/[facility]/ZIP Co de Phone Number [facility] [place] [address] * Hepatitis C Antibody (11/16/2020 11:11 AM EDT) Hepatitis C Ab Negative Negative [facility] Blood 11/16/2020 11:1 1 AM EDT 11/16/2020 12:49 PM EDT Narrative Resulting Agency Comment Spec In Lab Emmy Nava MD IMMUNOLOGY ORDERA BLES Performing Organization Address [facility] Co de Phone Number [facility] [place] [address] documented in this encounter Visit Diagnoses Diagnosis Inverse psoriasis Other psoriasis High risk medication use Encounter for long-term (current) use of other medications Neoplasm of uncertain behavior of skin documented in this encounter Care Teams Electrolysist Relationship Specialty Start Date End Date Carolynn Wisdom APRN [address] [place] [address] [address] [place] [address] PCP - General Family Medicine 03/08/20 documented as of this encounter
--- OUTSIDE RECORDS SUMMARY | 2024-01-29 15:40 | XMS_ITS | Encounter Summary ---
Author Organization [facility] Address [facility] [place] [address] Care Team Providers Care Accountant Auditor Name Role Phone Carolynn Wisdom APRN Primary Care Provider Reason for Visit * Reason Onset Date Comments Medication Refill 11/16/2020 Encounter Details Date Type Department Care Team (Late st Contact Info) Description 11/16/2020 Refill Dermatology at [facility] [address] [place] [phone] Lisa Vasquez MD [facility] [place] [address] Social History Tobacco Use Types Packs/Day Years [...] at [facility] [address] [place] [address] Regina Rivas MD [facility] [place] [address] documented as of this encounter Visit Diagnoses Not on filedocumented in this encounter Care Teams Accountant Auditor Relationship Specialty Start Date End Date Carolynn Wisdom APRN [address] [place] [address] PCP - General Family Medicine 03/08/20 documented as of this encounter
--- OUTSIDE RECORDS SUMMARY | 2024-01-29 15:40 | XMS_ITS | Encounter Summary ---
Author Organization [facility] Address [facility] [place] [address] Care Team Providers Care Nursing Project Coordinator Name Role Phone Carolynn Wisdom APRN Primary Care Provider [phone] Reason for Visit * Reason Onset Date Comments Medication Refill 06/19/2021 Encounter Details Date Type Department Care Team (Late st Contact Info) Description 06/19/2021 Refill Dermatology at [facility] [address] [place] [address] Lisa Vasquez MD [facility] [place] [address] Social History Tobacco Use Types Packs/Day Years [...] 2:15 PM EDT Office Visit Dermatology at [facility] [address] [place] [phone] Regina Rivas MD [facility] [place] [address] documented as of this encounter Visit Diagnoses Not on filedocumented in this encounter Care Teams Nursing Project Coordinator Relationship Specialty Start Date End Date Caroylnn Wisdom APRN [address] [place] [address] PCP - General Family Medicine 03/08/20 documented as of this encounter
--- OUTSIDE RECORDS SUMMARY | 2024-01-29 15:40 | XMS_ITS | Encounter Summary ---
Author Organization [facility] [place] [address] Care Team Providers Care Qa Developer Name Role Phone Carolynn Wisdom COMPUTER ARCHITECT Primary Care Provider Reason for Visit * Reason Comments Medication Refill Medication Management Encounter Details Date Type Department Care Team (Late Contact Info) Description 06/08/2021 Specialty [place] [address] Vicente Pond, [facility] Social History Tobacco Use Types Packs/Day Years Used Date Smoking Tobacco: Former Smokeless Tobacco: Never Sex and Gender Information Value Date Recorded Sex Assigned at Not on file Gender Identity Not on file Sexual Orientation Not on file documented as of this encounter Progress Notes * Vicente Pond [facility] - 06/08/2021 11:07 AM EST Specialty Pharmacy Consultation; Vicente Pond [facility] Comprehensive Medication Management (CMM) Melinda Goncalves [...] Requirements: no Medication Reconciliation Discrepancies (compared to [facility] med list) yes - outside medications were [...] 120 g 0 ??? Adalimumab (Humira Pen Mkvs-Eeoufm-Gaiz HS) 40 mg/0.8 mL Pen Injector Kit [...] specialty services: Yes Patient accepted offer to clinical counselor: select all, adherence/missed doses, cost of [...] to doctor discussed, reminder to refill or pick up attendant medication discussed, self-monitoring discussed, timing of medications [...] If yes, explain: clobetasol solution refill to [facility] [employer] Additional equipment/supplies required: No Patient satisfied with care/services provided: Yes Specialty Assessment: Physical and Cognitive Assessment: Functional limitations identified: No Cognitive limitations identified: No Concern regarding orientation/memory: No Concern with reasoning/judgement: No Is patient a fall risk: No Social Assessment: Does patient have a primary healthcare consulting manager: No Does patient have an emergency contact on file: Yes Does patient need referral to bilingual social worker: No Does patient need referral [...] Yes Date Confirmed: 11/23/20 Confirmation: Signature in [facility] Specialty Med Adherence Patient Demonstrates Understanding [...] made at the appointment and that [facility] isproviding recommendations (summary located at top of note) for provider review and follow up. Vicente Pond RPH 06/08/21 11:16 AM documented in this encounter Plan of Treatment Upcoming Encounters Date Type Department Care Team (Late st Contact Info) Description 02/01/2025 2:15 PM EDT Office Visit Dermatology at [facility] [address] [place] [address] Regina Rivas MD [facility] [place] [address] documented as of this encounter Visit Diagnoses Not on filedocumented in this encounter Care Teams Qa Developer Relationship Specialty Start Date End Date Artis CANDE Pradhan [address] [place] [address] [address] [place] [address] PCP - General Family Medicine 03/08/20 documented as of this encounter
--- OUTSIDE RECORDS SUMMARY | 2024-01-29 15:40 | XMS_ITS | Encounter Summary ---
Author Organization [facility] [place] [address] Care Team Providers Care Cooper Apprentice Name Role Phone Carolynn Wisdom APRN Primary Care Provider [phone] Reason for Referral * Diagnostic Test (Routine) - Closed Specialty Diagnoses / Procedures Referred By Bay t Referred To Contact Radiology Diagnoses Visit for screening mammogram Procedures Mammo Screening Cad and Keegan Bilateral Carolynn Wisdom APRN [address] [place] [address] [facility] [place] [address] Referral ID Status Reason Start Date Expiration Date V isits Requested Visits Authorized [id number] Closed Specialty Service Requested 05/16/2021 11/13/2022 1 1 Reason for Visit * Diagnostic Test (Routine) - Closed Specialty Diagnoses / Procedures Referred By Bay mckeon Referred To Contact Radiology Diagnoses Visit for screening mammogram Procedures Mammo Screening Cad and Keegan Bilateral Carolynn Wisdom APRN [address] [place] [address] [employer] [address] Referral ID Status Reason Start Date Expiration Date V isits Requested Visits Authorized [id number] Closed Specialty Service Requested 05/16/2021 11/13/2022 1 1 Encounter Details Date Type Department Care Team (Late st Contact Info) Description 05/22/2021 9:40 AM EST - 05/22/2021 11:59 PM EST Hospital Encounter Mamm[facility] [place] [address] Carolynn Wisdom, FOOD SAFETY OFFICER [address] [place] [address] Visit for screening mammogram Discharge Disposition: Home [...] 1 % Cream Apply topically. 07/13/2020 Insulin [place], Disposable, 29 gauge Needle by NOT APPLICABLE [...] 60 g 12/16/2020 08/18/2021 Adalimumab (Humira Pen Grwg-Imyjxr-Aowh HS) 40 mg/0.8 mL Pen Injector Kit [...] PM EDT Office Visit Dermatology at [facility] [address] [place] [address] Regina Rivas MD [facility] [place] [address] documented as of this encounter Procedures Procedure Name Priority Date/Time Associated Diagnosis Comments MAMMO SCREENING CAD AND KEEGAN BILATERAL Routine 05/22/2021 10:00 AM EST Visit for screening mammogram documented in this encounter Results * Mammo Screening Cad and Keegan Bilateral (05/22/2021 10:00 AM EST) Anatomical Region [...] mammogram documented in this encounter Care Teams Cooper Apprentice Relationship Specialty Start Date End Date Carolynn Wisdom APRN [address] [place] [address] PCP - General Family Medicine 03/08/20 documented as of this encounter
--- OUTSIDE RECORDS SUMMARY | 2024-01-29 15:40 | XMS_ITS | Encounter Summary ---
Author Organization [facility] [place] [address] Care Team Providers Care [employer] Team Member Name Role Phone Carolynn Wisdom APRN Primary Care Provider Reason for Visit * Reason Comments Specialty Refill Management Encounter Details Date Type Department Care Team (Late st Contact Info) Description 03/15/2021 Specialty [place] [address] Tita Holman CPHT Social History Tobacco Use [...] Dermatology at [facility] [address] [place] [address] Regina Rivas MD [facility] [place] [address] documented as of this encounter Visit Diagnoses Not on filedocumented in this encounter Care Teams [employer] Team Member Relationship Specialty Start Date End Date Carolynn Wisdom APRN [address] [place] [address] PCP - General Family Medicine 03/08/20 documented as of this encounter
--- OUTSIDE RECORDS SUMMARY | 2024-01-29 15:40 | XMS_ITS | Encounter Summary ---
Author Organization [facility] Address [facility] [place] [address] Care Team Providers Care Double Needle Stitcher Name Role Phone Carolynn Wisdom APRN Primary Care Provider [phone] Reason for Visit * Reason Comments Psoriasis * Consultation (Routine) - Closed Specialty Diagnoses / Procedures Referred By Bay mckeon Referred To Contact Dermatology Diagnoses Erythema intertrigo Carolynn Wisdom APRN [address] [place] [address] [facility] Dermatology [address] [place] [address] Referral ID Status Reason Start Date Expiration Date V isits Requested Visits Authorized [id number] Closed Consult, Test & Treat Connection Center PCP Updated and/or Approved 10/28/2020 10/28/2021 6 6 Encounter Details Date Type Department Care Team (Late st Contact Info) Description 02/14/2021 1:40 PM EDT Office Visit Dermatology at [facility] [address] [place] [address] Lisa Vasquez MD [facility] [address] [place] [address] Intertrigo; Inverse psoriasis Social History [...] N ?? SOCIAL HISTORY Occupation: works in [employer] Hobbies: Other: Diagnosis or treatment significantly limited [...] calcipotriene during the week. Last visit at [facility] Derm: 11/16/2020 Last visit with this [...] 2 months for psoriasis [x]Note routed to assistant secretary []Recall has been placed in scheduling system []Appointment scheduled at checkout Scribe attestation: Gretel Tucker LPN has performed the documentation for this encounter in thepresence of and acting as a scribe for Lisa Vasquez MD I performed the above scribed service and agree with the accuracy of the documentation in this encounter. Reviewed and signed by: Lisa Vasquez MD Dermatology [facility] Patient seen and evaluated with staff roll icer machine: Patricia Hassan MD Dermatology [facility] * Patricia Hassan MD - 02/14/2021 [...] 2:15 PM EDT Office Visit Dermatology at [address] [address] Regina Rivas MD [facility] [address] [place] [address] documented as of this encounter Visit Diagnoses Diagnosis Intertrigo Other specified erythematous condition Inverse psoriasis Other psoriasis documented in this encounter Care Teams Double Needle Stitcher Relationship Specialty Start Date End Date Carolynn Wisdom APRN [address] [place] [address] [address] [place] [address] PCP - General Family Medicine 03/08/20 documented as of this encounter
--- OUTSIDE RECORDS SUMMARY | 2024-01-29 15:40 | XMS_ITS | Clinical Summary ---
Author Organization [facility] Address [address] [place] [address] Care Team Providers Care Logistics Team Lead Name Role Phone Unavailable Primary Care Provider [...] - 1-dose 60+ series) 2021 COVID-19 Vaccine (2022- season) 2023
--- OUTSIDE RECORDS SUMMARY | 2024-01-29 15:40 | XMS_ITS | Encounter Summary ---
Author Organization [facility] [place] [address] Care Team Providers Care Pre K Special Education Teacher Name Role Phone Carolynn Wisdom PUMPER GAGER APPRENTICE Primary Care Provider [phone] Reason for Visit * Reason Comments Medication Management Specialty Refill Management Encounter Details Date Type Department Care Team (Late st Contact Info) Description 01/17/2021 Specialty [place] [address] Oscar Mariano, [facility] Social History Tobacco Use Types Packs/Day Years Used Date Smoking Tobacco: Former Smokeless Tobacco: Never Sex and Gender Information Value Date Recorded Sex Assigned at Not on file Gender Identity Not on file Sexual Orientation Not on file documented as of this encounter Progress Notes * Oscar Mariano [facility] - 01/17/2021 8:42 AM EDT Clinical Management Plan: Refill Specialty Pharmacy Consultation; Oscar Mariano [facility] Comprehensive Medication Management (CMM) Melinda Goncalves is [...] beneficiary Provider: plan sponsor pharmacist [place] [facility] [place] Method of Contact: by telephone Cognitive Ability: good Allergies and Drug intolerance: No Known Allergies Medication Reconciliation Discrepancies (compared to [facility] med list) -none Specialty Pharmacy Refill [...] 2:15 PM EDT Office Visit Dermatology at [facility] [address] [place] [address] Regina Rivas MD [facility] DR JO [place] [address] documented as of this encounter Visit Diagnoses Not on filedocumented in this encounter Care Teams Pre K Special Education Teacher Relationship Specialty Start Date End Date Carolynn Wisdom APRN [address] [place] [address] PCP - General Family Medicine 03/08/20 documented as of this encounter
--- OUTSIDE RECORDS SUMMARY | 2024-01-29 15:40 | XMS_ITS | Encounter Summary ---
Author Organization [facility] [place] [address] Care Team Providers Care Covering And Lining Supervisor Name Role Phone Carolynn Wisdom APRN Primary Care Provider Reason for Visit * Reason Comments Specialty Pharmacy Review Encounter Details Date Type Department Care Team (Late st Contact Info) Description 06/19/2021 Specialty [place] [address] Jean Slaughter, [facility] Social History Tobacco Use Types Packs/Day Years Used Date Smoking Tobacco: Former Smokeless Tobacco: Never Sex and Gender Information Value Date Recorded Sex Assigned at Not on file Gender Identity Not on file Sexual Orientation Not on file documented as of this encounter Progress Notes * Jean Slaughter - 06/19/2021 11:59 PM EST The [facility] has completed a benefits investigation for Melinda Goncalves to review their eligibility to fill at [facility]. Per patient's medication list they are prescribed STELARA 90 MG/ML and the medication is currently filled at the [facility]. documented in this encounter Plan of Treatment Upcoming Encounters Date Type Department Care Team (Late st Contact Info) Description 02/01/2025 2:15 PM EDT Office Visit Dermatology at [facility] [address] [place] [address] Regina Rivas MD [facility] [place] [address] documented as of this encounter Visit Diagnoses Not on filedocumented in this encounter Care Teams Covering And Lining Supervisor Relationship Specialty Start Date End Date ReginaldomarcusKrystalCarolynnCANDE vega [address] [place] [address] PCP - General Family Medicine 03/08/20 documented as of this encounter
--- OUTSIDE RECORDS SUMMARY | 2024-01-29 15:40 | XMS_ITS | Encounter Summary ---
Author Organization [facility] [place] [address] Care Team Providers Care Transmitter Chief Name Role Phone Carolynn Wisdom APRN Primary Care Provider Encounter Details Date Type Department Care Team (Late st Contact Info) Description 11/24/2020 [place] [phone] Danna Correa, [facility] Social History Tobacco Use Types Packs/Day Years Used Date Smoking Tobacco: Former Smokeless Tobacco: Never Sex and Gender Information Value Date Recorded Sex Assigned at Not on file Gender Identity Not on file Sexual Orientation Not on file documented as of this encounter Miscellaneous Notes * Telephone Encounter - Danna Correa [facility] - 11/24/2020 1:01 PM EDT Clinical Management Plan: Medication Question Specialty Pharmacy Consultation: Danna Correa, MarianaD, [facility] Comprehensive Medication Management (CMM) Melinda Goncalves is [...] injection on the top of her thigh shelter between the knee and hip which likely [...] were made at the appointment and that [facility] is providing recommendations (summary located at top of note) for provider review and follow up. Danna Correa, PharmD, [facility] 11/24/20 1:02 PM Time spent on this encounter: 25 minutes documented in this encounter Plan of Treatment Upcoming Encounters Date Type Department Care Team (Late st Contact Info) Description 02/01/2025 2:15 PM EDT Office Visit Dermatology at [facility] [address] [place] [address] Regina Rivas MD [facility] DR [place] [address] documented as of this encounter Visit Diagnoses Not on filedocumented in this encounter Care Teams Transmitter Chief Relationship Specialty Start Date End Date Carolynn Wisdom APRN [address] [place] [address] [address] [facility] [address] [place] [address] PCP - General Family Medicine 03/08/20 documented as of this encounter
--- OUTSIDE RECORDS SUMMARY | 2024-01-29 15:40 | XMS_ITS | Encounter Summary ---
Author Organization [facility] [place] [address] Care Team Providers Care Cornetist Name Role Phone Carolynn Wisdom APRN Primary Care Provider [phone] Reason for Visit * Reason Comments Prior Authorization humira pen-ps/uv/ado l hs st 40 pnkt Encounter Details Date Type Department Care Team (Late st Contact Info) Description 11/21/2020 Specialty [place] [address] Ibeth Bermudze, [employer]BAC[employer] CLOTH RECLAIMER Social History Tobacco Use Types Packs/Day Years [...] Melinda Goncalves Patient : 1960 Patient Address: [address] [place] [id number] (home) Medication Name: HUMIRA PEN [id number] HID SUP START 40 MG/0.8 ML SUBCUT KT Medication ID: [id number] Patient Location: [facility] DER[facility] Patient Location Comment: Subscriber Insurance: Ruel ATWOOD (N IS) Subscriber Insurance Comment: Phone: Fax: Physician: MAXI MASON Physician Comment: Sent Via: [facility] Oneal: [id number] Ref/Case/PA#: Medication Strength Frequency Requested: INJECT THE [...] Ibeth Roger - 11/21/2020 11:34 AM EDT [facility], Prior Authorization Approval Medication Name: HUMIRA PEN [id number] HID SUP START 40 MG/0.8 ML SUBCUT KT Medication ID: [id number] Approval Dates: 11/21/2020 to 11/21/2021 Insurance requirements/notes: None Other Notes: None Case/Reference #: [id number] Approval notification Received via: Fax Copay: $5.00 Copay assistance: Copay Notes: Insurance mandated Pharmacy: [facility] Fillable at [facility] Special[facility] Pharmacy: Yes Pharmacy staff will be reaching out to the patient to inform them of their medication's [facility]. If applicable, a pharmacist will speak with the patient to offer our specialty pharmacy services and to arrange delivery of their medication. Ibeth Roger 11/21/20 2:32 PM documented in this encounter Plan of Treatment Upcoming Encounters Date Type Department Care Team ([facility] st Contact Info) Description 02/01/2025 2:15 PM EDT Office Visit Dermatology at [facility] [address] [place] [address] Regina Rivas MD [facility] DR [place] [address] documented as of this encounter Visit Diagnoses Not on filedocumented in this encounter Care Teams Cornetist Relationship Specialty Start Date End Date Carolynn Wisdom APRN [address] [place] [address] PCP - General Family Medicine 03/08/20 documented as of this encounter
--- OUTSIDE RECORDS SUMMARY | 2024-01-29 15:40 | XMS_ITS | Encounter Summary ---
Author Organization [facility] [place] [address] Care Team Providers Care Tool Liaison Name Role Phone Lida Acevedo APRN Primary Care Provider [phone] Encounter Details Date Type Department Care Team (Latest Contact Info) Description 12/13/2014 8:42 AM EDT - 12/13/2014 11:59 PM EDT Hospital [place] [address] CLINIC, Lida Medellin, CANDE [address] [place] [address] Discharge Disposition: Home Social History [...] [facility] [address] [place] [address] Regina Rivas MD [facility] [place] [address] documented as of this encounter Procedures Procedure [...] on filedocumented in this encounter Care Teams Tool Liaison Relationship Specialty Start Date End Date Lida Acevedo APRN PCP - General 12/13/14 03/07/20 documented as of this encounter
--- OUTSIDE RECORDS SUMMARY | 2024-01-29 15:40 | XMS_ITS | Encounter Summary ---
Author Organization [facility] Address [address] [place] [address] Care Team Providers Care Edge Trimming Machine Operator Name Role Phone Unavailable Primary Care Provider Unavailabl e Encounter Details Date Type Department Care Team (Late st Contact Info) Description 03/10/2020 [facility] Pathology & Laboratory Medicine - [facility] [address] [place] [address] Outr Resulting Lab, Provider Social History Tobacco [...] Anti-Thyroglobulin 53 <=60 U/mL 2019 18:35 EDT [facility] Thyroperoxidase Ab 918(H) <=60 U/mL 2019 18:35 EDT [facility] Blood VENOUS BLOOD / Unknown 03/10/2020 8:06 EDT 03/10/2020 17:02 EDT Provider Outr Resulting Lab CHEMISTRY & BLOOD GAS ORDERABLES [facility] [address] [place] [address] documented in this encounter Visit Diagnoses Not on filedocumented in this encounter
--- OUTSIDE RECORDS SUMMARY | 2024-01-29 15:40 | XMS_ITS | Encounter Summary ---
Author Organization [facility] [address] Care Team Providers Care Bombsight Specialist Name Role Phone Lida Acevedo Cindy CASTELLON Primary Care Provider [phone]- [phone] Encounter Details Date Type Department Care Team (Late st Contact Info) Description 12/23/2014 9:30 AM EDT - 12/23/2014 11:59 PM EDT Hospital Encounter [place] [address] CLINIC, Ryan Soni, DO [address] [place], [place] [address] Abnormal mammogram, unspecified Discharge Disposition: Home Social [...] 2:15 PM EDT Office Visit Dermatology at [facility] [address] [place] [address] Regina Rivas MD [facility] [place] [address] documented as of this encounter Procedures Procedure [...] unspecified documented in this encounter Care Teams Bombsight Specialist Relationship Specialty Start Date End Date Lida Acevedo APRN PCP - General 12/13/14 03/07/20 documented as of this encounter
--- OUTSIDE RECORDS SUMMARY | 2024-01-29 15:40 | XMS_ITS | Encounter Summary ---
Author Organization [facility] [place] [address] Care Team Providers Care Kier Operator Name Role Phone Carolynn Wisdom MECHANICAL FACILITIES TECHNICIAN Primary Care Provider Reason for Visit * Reason Comments Medication Management Encounter Details Date Type Department Care Team (Late st Contact Info) Description 05/04/2021 Specialty [place] [address] Daylin Alba Mirela Social History Tobacco Use [...] beneficiary Provider: plan sponsor pharmacist Visit Type: [facility] [place] Follow-up Method of Contact: by telephone Cognitive Ability: good Allergies and Drug intolerance: No Known Allergies Medication Reconciliation Discrepancies (compared to [facility] med list) -no Specialty Pharmacy Refill Questionnaire [...] at the appointment and that [facility] is providing recommendations (summary located at top of note) for provider review and follow up. Daylin Alba RPH 05/04/21 12:30 PM documented in this encounter Plan of Treatment Upcoming Encounters Date Type Department Care Team (Late st Contact Info) Description 02/01/2025 2:15 PM EDT Office Visit Dermatology at [facility] [address] [place] [address] Regina Rivas MD [facility] DR [place] [address] documented as of this encounter Visit Diagnoses Not on filedocumented in this encounter Care Teams Kier Operator Relationship Specialty Start Date End Date Carolynn Wisdom APRN [address] [place] [address] PCP - General Family Medicine 03/08/20 documented as of this encounter
--- OUTSIDE RECORDS SUMMARY | 2024-01-29 15:40 | XMS_ITS | Encounter Summary ---
Author Organization [facility] Address [facility] [place] [address] Care Team Providers Care Manager Quantitative Name Role Phone Carolynn Wisdom APRN Primary Care Provider Encounter Details Date Type Department Care Team (Late st Contact Info) Description 06/08/2021 Refill Dermatology at [facility] [address] [place] [address] Lisa Vasquez MD [facility] DR [place] [address] Inverse psoriasis Social History Tobacco Use Types [...] 2:15 PM EDT Office Visit Dermatology at [facility] [address] [place] [address] Regina Rivas MD [facility] DR [place] [address] documented as of this encounter Visit Diagnoses Diagnosis Inverse psoriasis Other psoriasis documented in this encounter Care Teams Manager Quantitative Relationship Specialty Start Date End Date Carolynn Wisdom APRN [address] [place] [address] [place] [address] PCP - General Family Medicine 03/08/20 documented as of this encounter
--- OUTSIDE RECORDS SUMMARY | 2024-01-29 15:40 | XMS_ITS | Encounter Summary ---
Author Organization [facility] Address [facility] [place] [address] Care Team Providers Care Chocolate Maker Name Role Phone Lida Acevedo Cindy CASTELLON Primary Care Provider [phone]- [phone] Encounter Details Date Type Department Care Team (Late st Contact Info) Description 12/14/2014 Orders [place] [address] Hina Bustamante MD [facility] [place] [address] Abnormal mammogram, unspecified Social History Tobacco Use [...] 2:15 PM EDT Office Visit Dermatology at [address] [place] [address] Regina Rivas MD [facility] [place] [address] documented as of this encounter Results * [...] unspecified documented in this encounter Care Teams Chocolate Maker Relationship Specialty Start Date End Date Lida Acevedo APRN PCP - General 12/13/14 03/07/20 documented as of this encounter
--- OUTSIDE RECORDS SUMMARY | 2024-01-29 15:40 | XMS_ITS | Encounter Summary ---
Author Organization [facility] [place] [address] Care Team Providers Care Dough Braker Name Role Phone MelodieCarolynn judd APRN Primary Care Provider Encounter Details Date Type Department Care Team (Late st Contact Info) Description 07/15/2020 9:20 PM EST Ancillary Procedure [place] [address] Carolynn Wisdom APRN [address] [place], [place] [address] Social History Tobacco Use Types Packs/Day Years [...] 2:15 PM EDT Office Visit Dermatology at [facility] [address] [place] [address] Regina Rivas MD [facility] [place] [address] documented as of this encounter Procedures Procedure Name Priority Date/Time Associated Diagnosis Comments FILM LIBRARY STORAGE ONLY DX CHEST Routine 07/15/2020 9:14 PM EST documented in this encounter Results * Film Library- Storage Only DX Chest (07/15/2020 9:14 PM EST) Narrative [facility] - 07/15/2020 9:14 PM EST This exam is auto-finalizing. It's purpose is for storage only. Carolynn Adjbinta LINUX [employer] ADMINISTRATOR IMG FILM LIBRARY OR DERABLES Performing Organization Address City/State/[facility] Co de Phone Number [place], [place] documented in this encounter Visit Diagnoses Not on filedocumented in this encounter Care Teams Dough Braker Relationship Specialty Start Date End Date Carolynn Wisdom APRN [address] [place] [address] PCP - General Family Medicine 03/08/20 documented as of this encounter
[2024-01-31 11:59] LABS: TB Interpretation Negative (Negative); TB1 Ag minus Nil 0.01 IU/ml
== END 2024-01-29 15:35 | disposition home or self-care (01) ==
LOC: LBO 15:35
PROVIDERS: PCP Nurse Practitioner Family; Visit Provider Dermatology
DX: Z79.899 Other long term (current) drug therapy (principal)
CPT/HCPCS: 36415; 80053; 85025; 86480

== ENCOUNTER 2024-09-25 01:01 | Outpatient (CLI) | payer BC, SELFPAY ==
[2024-09-25 09:11] LABS: Hemoglobin A1C 7.2 % (<5.7)
[2024-09-25 09:34] LABS: Calculated LDL 67 mg/dL (<100); Cholesterol 141 mg/dL (<200); HDL Cholesterol 58 mg/dL (>or=50); TSH (W/Ref FT4) 7.59 uIU/mL (0.36-3.74); Triglyceride 82 mg/dL (<150)
[2024-09-25 09:50] LABS: FREE T4 1.08 ng/dL (0.76-1.46)
== END 2024-09-25 01:02 | disposition home or self-care (01) ==
LOC: LBO 01:01
PROVIDERS: PCP Nurse Practitioner Family; Visit Provider Nurse Practitioner Family
DX: E11.319 Type 2 diabetes mellitus with unspecified diabetic retinopathy without macular edema (principal); L40.8 Other psoriasis; E03.9 Hypothyroidism, unspecified
CPT/HCPCS: 36415; 80061; 83036; 84439; 84443

== ENCOUNTER 2024-10-26 00:04 | Outpatient (CLI) | payer BC, SELFPAY ==
--- NOTE | 2024-10-26 08:00 | DI.US_ITS ---
APPROVED REPORT EXAM: Comprehensive 2D, Doppler, and color-flow Echocardiogram Patient Location: Out-Patient Cdl Bulk Driver: Sheng Salcedo RDCS (AE) Indications: Systolic murmur Conclusion Normal left ventricular wall thickness and chamber size. Ejection fraction is 60%. Wall motion is n ormal Normal right ventricular size and function Both atria are normal in size There are no structural valvular abnormalities Mild mitral regurgitation Wall motion Left Ventricle The left ventricle is normal size. Left ventricular systolic function is normal. The left ventricular ejection fraction is within the normal range. There is normal left ventricular wall thickness. There is normal LV segmental wall motion. The left ventricular diastolic function is normal. There is no v entricular septal defect visualized. LVEF is 60%. Right Ventricle The right ventricle is normal size. The right ventricular systolic function is normal. Atria The left atrium size is normal. The right atrium size is normal. The interatrial septum is intact wit h no evidence for an atrial septal defect. Aortic Valve The aortic valve is normal in structure. Aortic valve is trileaflet. There is no aortic valvular sten osis. No aortic regurgitation is present. Mitral Valve The mitral valve is normal in structure. No evidence of mitral valve stenosis. Mild mitral regurgitat ion. Tricuspid Valve The tricuspid valve is normal in structure. There is no tricuspid valve stenosis. Trace tricuspid reg urgitation. The RVSP is 19 mmHg. Pulmonic Valve The pulmonary valve is normal in structure. There is no pulmonic valvular stenosis. There is no pulmo maddie valvular regurgitation. Great Vessels The aortic root is normal in size. The ascending aorta is normal in size. Aortic arch is normal in ca liber. IVC is normal in size and collapses >50% with inspiration. Pericardium There is no pericardial effusion. 2D Dimensions IVSD d PLAX 0.77 cm F: 0.6-1.0 Ao Root d 3.08 cm F: 2.7 - 3.3 LVPW d PLAX 0.85 cm F: 0.6 - 1.0 Ao Asc Diam d 3.15 cm F: 2.3 - 3.1 LVID d PLAX 4.75 cm F: 3.8 - 5.2 LVDs 3.24 cm F: 2.2 - 3.5 LV EF Teichholz 59.8 % FS 31.80 % LV EDV (Teich) 105.0 mL LV ESV (Teich) 42.2 mL Stroke Vol Index (Teich) 34.89 M-Mode TAPSE 2.37 cm (M/F) >1.7 Auto EF LV EDV A4C 114.6 mL LV EDV A2C 101.7 mL LV EDV BP 107.7 mL LV ESV A4C 45.7 mL LV ESV A2C 41.1 mL LV ESV BP 42.9 mL LVEF(%) A4C 60.1 % LVEF(%) A2C 59.6 % LVEF(%) BP 60.2 % LV SV A4C 68.9 ml LV SV A2C 60.6 ml LV SV BP 64.8 ml LV CO A4C 3.7 L/min LV CO A2C 3.3 L/min LV CO BP 3.5 L/min HR A4C 54.14 BPM HR A2C 53.65 BPM LV EDV Index (BP) LA Volume LA Length A4C 4.3 cm LA Length A2C 5.0 cm LA Area A4C s 10.27 cm2 LA Area A2C s 13.59 cm2 LA Vol A4C A-L 20.72 mL LA Vol A2C A-L 31.50 mL LA Vol Biplane A-L 27.4 mL LA Vol/BSA A4C A-L LA Vol/BSA A2C A-L LA Vol/BSA BP A-L 15.2 mL/m2 LA Vol A4C MOD 19.9 mL LA Vol A2C MOD 31.5 mL LA Vol BP MOD 26.7 mL RA Volume RA Area A4C 10.0 cm2 RA ESV A4C (A-L) 18.7mL RA Vol/BSA A4C A-L RA Length A4C 4.5 cm RA ESV A4C (MOD) 19.4mL LV Diastology MV E' medial 0.086 (>0.07 m/s) MV E Vmax 0.69 (0.4-1.3 m/s) MV E/E' MED 7.97 (<14) MV A Vmax 0.80 (0.4-1.3 m/s) MV E' lateral 0.109 (>0.1 m/s) E/A Ratio 0.9 MV E/E' LAT 6.29 (<14) MV E' Average 0.098 m/s MV E/E'(average) 7.03 Aortic Valve AoV Vmax 1.29 m/s LVOT Vmax 0.96 m/s AoV Peak Grad 6.6 mmHg LVOT Peak Grad 3.7 mmHg AoV Area (Vmax) 2.06 cm2 LVOT VTI 0.210 m AoV VTI 0.336 m LVOT Mean Grad 1.8 mmHg AoV Mean Emiliano. 0.93 m/s LVOT SV 57.97 mL AoV Mean Grad 3.9 mmHg LVOT Diam s 1.85 cm AoV Area (VTI) 1.72 cm2 AV Regurg Peak Gr. 6.64 mmHg Velocity Ratio 0.74 Mitral Valve MV DT 263 (160-240 msec) Pulmonary Valve PV Vmax 0.95 (0.5-1.5 m/s) RVOT Vmax 0.60 m/s PV Peak Grad 3.6 mmHg RVOT Peak Gr. 1.4 mmHg PV Mean Emiliano 0.65 m/s RVOT VTI 0.148 m PV Mean Grad 2.0 mmHg RVOT Mean Gr. 0.8 mmHg Tricuspid Valve RA Pressure 3.00 mmHg TR Vmax 1.98 m/s TR Peak Grad 15.6 mmHg RVSP (TR) 18.7 mmHg
== END 2024-10-26 00:24 ==
LOC: DI 00:04
PROVIDERS: PCP Nurse Practitioner Family; Visit Provider Internal Medicine Cardiovascular Disease
DX: R01.1 Cardiac murmur, unspecified (principal)
CPT/HCPCS: 93306

== ENCOUNTER 2024-11-05 01:59 | Outpatient (CLI) | payer BC, SELFPAY ==
[2024-11-05 09:55] LABS: TSH (W/Ref FT4) 5.25 uIU/mL (0.36-3.74)
[2024-11-05 10:17] LABS: FREE T4 0.87 ng/dL (0.76-1.46)
== END 2024-11-05 02:00 | disposition home or self-care (01) ==
LOC: LBO 02:00
PROVIDERS: PCP Nurse Practitioner Family; Visit Provider Nurse Practitioner Family
DX: E03.9 Hypothyroidism, unspecified (principal)
CPT/HCPCS: 36415; 84439; 84443

== ENCOUNTER 2025-02-09 13:09 | Outpatient (CLI) | payer BC, SELFPAY ==
[2025-02-09 15:34] LABS: TSH (W/Ref FT4) 4.06 uIU/mL (0.36-3.74)
== END 2025-02-09 13:10 | disposition home or self-care (01) ==
LOC: LBO 13:09
PROVIDERS: PCP Nurse Practitioner Family; Visit Provider Nurse Practitioner Family
DX: E03.9 Hypothyroidism, unspecified (principal)
CPT/HCPCS: 36415; 84439; 84443

== ENCOUNTER 2025-04-26 08:48 | Day surgery (SDC) | payer BC, SELFPAY ==
--- NOTE | 2025-04-26 08:58 | W.ANESPRE ---
General Info Height: 5 ft 3.5 in Weight: 80.286 kg Body Mass Index (BMI): 30.8 Surgical Procedure: Operation Date: 04/26/25 11:35 Proposed Procedure Side Surgeon jg Galan MD Meds Allergies and Home Medications Allergies Allergy/AdvReac Type Severity Reaction Status Date / Time semaglutide (From Ozempic) AdvReac stomach Verified 04/23/25 12:22 pain Home Medication ?Medication ?Instructions ?Recorded blood-glucose meter (OneTouch #1 ea 03/18/20 Ultra2 Meter) nystatin-triamcinolone 100,000 1 applic topical BID #60 grams 06/27/23 unit/g-0.1 % topical cream metformin 500 mg tablet,extended 1,000 mg (2 x 500 mg) PO BID #360 08/12/24 release 24 hr tabs rosuvastatin 5 mg tablet (Crestor) 2.5 mg (1/2 x 5 mg) PO DAILY #45 09/17/24 tabs blood sugar diagnostic (OneTouch #200 ea 12/14/24 Ultra Test strips) lancets 33 gauge (OneTouch Delica #200 ea 12/14/24 Plus Lancet) levothyroxine 50 mcg capsule 50 mcg PO DAILY #90 caps 03/22/25 ustekinumab-auub 90 mg/mL 90 mg subcut Q8W 03/22/25 subcutaneous syringe ([facility]) bisacodyl 5 mg tablet,delayed 5 mg PO ONCE #4 tabs 04/07/25 release (Dulcolax (bisacodyl)) peg 3350-electrolytes 236 240 ml PO Q10M #4,000 mL 04/07/25 gram-22.74 gram-6.74 gram-5.86 gram solution (Golytely) Current Visit Medications: Current Medications Generic Name Dose Route Start Last Admin Trade Name Freq PRN Reason Stop Dose Admin Ringer's Solution 1,000 mls @ 80 mls/hr 04/26/25 06:00 IV 04/26/25 23:59 INFUSION MIRIAM IV Miscellaneous Supplies 1 each 04/26/25 06:00 Iv Access IV 04/26/25 23:59 DIRECTED MIRIAM Sodium Biphosphate/Sodium Phosphate 133 ml 04/26/25 06:00 Na Phosphate Enema-Adult 133 Ml Btl [place] 04/26/25 23:59 DIRECTED PRN Sodium Chloride 0 ml 04/26/25 06:00 Normal Saline Flush 10 Ml Syr IV 04/26/25 23:59 PRN PRN Sodium Chloride 0 ml 04/26/25 06:00 Normal Saline 10 Ml Vial IJ 04/26/25 23:59 DIRECTED PRN Sterile Water 0 ml 04/26/25 06:00 Water,Injection,Sterile 10 Ml Vial IJ 04/26/25 23:59 DIRECTED PRN PFSH Active Problems Active Problems: Problem Status Onset Code 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 HEATHER (obstructive sleep apnea) Chronic G47.33 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 Hypothyroidism Chronic E03.9 Hyperlipidemia Chronic E78.5 Migraine headache with aura Chronic G43.109 Mitral regurgitation Chronic I34.0 Obesity Chronic E66.9 Atrophic vaginitis Chronic N95.2 Tinnitus Chronic H93.19 Pelvic floor dysfunction Chronic M62.89 Medical History Medical History Transient vision disturbance of left eye Surgical History Surgical History 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) S/P appendectomy (~1972) Tobacco Smoking/Tobacco Use Status: Never Passive smoking exposure: Yes Second hand exposure: Yes (father yrs ago) Alcohol Alcohol Intake: current Alcohol intake frequency: a few times a month Alcohol type: beer and wine Substance Use Substance use: Never Substance use type: does not use Prental History History 3 Para 2 Hx # Term Pregnancies Multiple births Hx # Pregnancies Ectopic pregnancies AB induced 1 Hx Number of Living Children 2 AB spontaneous Anesthesia Assessment and Plan ASA Classification Emergency Case?: No Anesthesia Plan Resuscitation Status: Full Code Anesthesia Technique: General Anesthesia Airway Planned: Natural Airway Monitors Used: Standard Monitors Preoperative Comments:: 65 yo for colo. Sig PMHx: HEATHER, DM2, hypothyroid. Never smoker, occ EtOH. ECHO: LVEF 60%, mild MR. ECG: sinus. PVCs
[2025-04-26 09:07] VITALS: BP 108/73; PULSE 59; RESP 16; TEMP 36.2; O2SAT 97
[2025-04-26] MEDS: Lactated Ringers 1,000 ML 80 ML IV (09:18)
--- NOTE | 2025-04-26 09:41 | W.ANESPRE ---
General Info Date of Service Date Performed: 04/26/25 Height: 5 ft 3.5 in Weight: 79.3 kg Body Mass Index (BMI): 30.4 Surgical Procedure: Operation Date: 04/26/25 11:35 Proposed Procedure Side Surgeon jg Galan MD Meds Allergies and Home Medications Allergies Allergy/AdvReac Type Severity Reaction Status Date / Time semaglutide (From Ozempic) AdvReac stomach Verified 04/26/25 09:05 pain Home Medication ?Medication ?Instructions ?Recorded blood-glucose meter (OneTouch #1 ea 03/18/20 Ultra2 Meter) nystatin-triamcinolone 100,000 1 applic topical BID #60 grams 06/27/23 unit/g-0.1 % topical cream metformin 500 mg tablet,extended 1,000 mg (2 x 500 mg) PO BID #360 08/12/24 release 24 hr tabs rosuvastatin 5 mg tablet (Crestor) 2.5 mg (1/2 x 5 mg) PO DAILY #45 09/17/24 tabs blood sugar diagnostic (OneTouch #200 ea 12/14/24 Ultra Test strips) lancets 33 gauge (OneTouch Delica #200 ea 12/14/24 Plus Lancet) levothyroxine 50 mcg capsule 50 mcg PO DAILY #90 caps 03/22/25 ustekinumab-auub 90 mg/mL 90 mg subcut Q8W 03/22/25 subcutaneous syringe (Wezlana) bisacodyl 5 mg tablet,delayed 5 mg PO ONCE #4 tabs 04/07/25 release (Dulcolax (bisacodyl)) peg 3350-electrolytes 236 240 ml PO Q10M #4,000 mL 04/07/25 gram-22.74 gram-6.74 gram-5.86 gram solution (Golytely) Current Visit Medications: Current Medications Generic Name Dose Route Start Last Admin Trade Name Freq PRN Reason Stop Dose Admin Ringer's Solution 1,000 mls @ 80 mls/hr 04/26/25 06:00 04/26/25 09:18 IV 04/26/25 23:59 80 mls/hr INFUSION MIRIAM Administration IV Miscellaneous Supplies 1 each 04/26/25 06:00 Iv Access IV 04/26/25 23:59 DIRECTED MIRIAM Sodium Biphosphate/Sodium Phosphate 133 ml 04/26/25 06:00 Na Phosphate Enema-Adult 133 Ml Btl [place] 04/26/25 23:59 DIRECTED PRN Sodium Chloride 0 ml 04/26/25 06:00 Normal Saline Flush 10 Ml Syr IV 04/26/25 23:59 PRN PRN Sodium Chloride 0 ml 04/26/25 06:00 Normal Saline 10 Ml Vial IJ 04/26/25 23:59 DIRECTED PRN Sterile Water 0 ml 04/26/25 06:00 Water,Injection,Sterile 10 Ml Vial IJ 04/26/25 23:59 DIRECTED PRN PFSH Active Problems Active Problems: Problem Status Onset Code 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 HEATHER (obstructive sleep apnea) Chronic G47.33 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 Hypothyroidism Chronic E03.9 Hyperlipidemia Chronic E78.5 Migraine headache with aura Chronic G43.109 Mitral regurgitation Chronic I34.0 Obesity Chronic E66.9 Atrophic vaginitis Chronic N95.2 Tinnitus Chronic H93.19 Pelvic floor dysfunction Chronic M62.89 Medical History Medical History Transient vision disturbance of left eye Surgical History Surgical History 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) S/P appendectomy (~1972) Tobacco Smoking/Tobacco Use Status: Never Passive smoking exposure: Yes Second hand exposure: Yes (father yrs ago) Alcohol Alcohol Intake: current Alcohol intake frequency: a few times a month Alcohol type: beer and wine Substance Use Substance use: Never Substance use type: does not use Prental History History 3 Para 2 Hx # Term Pregnancies Multiple births Hx # Pregnancies Ectopic pregnancies AB induced 1 Hx Number of Living Children 2 AB spontaneous Vital Signs and Lab Results Vital Signs Most Recent Vital Signs in EMR: Most Recent Vital Signs Temp Pulse Resp BP Pulse Ox 36.2 C L 59 L 16 108/73 97 04/26/25 09:07 04/26/25 09:07 04/26/25 09:07 04/26/25 09:07 04/26/25 09:07 Point of Care Results Point of Care Results: Finger Stick Blood Glucose 133 04/26/25 08:59 Imaging and Studies Imaging and Studies Study information below may be from another EMR and interpreted by another provider. Please see original notes in EMR for more complete details. EKG Summary: 07/15/20: Exam: Resting ECG Patient Location: E HR:63 bpm ECG Measurements Heart Rate 63 AXIS MO 243 P 0 QRSd 96 QRS -5 QT 420 T56 QTc 430 Conclusion Sinus rhythm. Ventricular premature complex. Prolonged MO interval. artifact No Pvc Echocardiogram Summary: 10/26/24: Conclusion Normal left ventricular wall thickness and chamber size. Ejection fraction is 60%. Wall motion is normal Normal right ventricular size and function Both atria are normal in size There are no structural valvular abnormalities Mild mitral regurgitation Anesthesia Assessment and Plan Anesthesia History Personal History: No History of Anesthesia Complications Family History: No Family History of Anesthesia Complications Exercise Tolerance Exercise Tolerance: Metabolic Equivalents>4 Cardiac & Pulmonary Exam Cardiac Exam: Heart Murmur Present Pulmonary Exam: Clear Bilateral Breath Sounds Implantable Cardiac Device Does patient have a Pacemaker or an ICD?: No Airway Exam Known Difficult Airway: No Mallampati Class: 2 Mouth Opening: Normal (> 3cm) Thyromental Distance: Greater than 3 cm Neck Range of Motion: Full ROM Neck Circumference: Normal Teeth Condition: Normal Dentition ASA Classification ASA Score: ASA 2 Emergency Case?: No NPO Status NPO Status: NPO Clears >2 hours, Solids >8 hours Anesthesia Plan Resuscitation Status: Full Code Anesthesia Technique: General Anesthesia Airway Planned: Natural Airway Monitors Used: Standard Monitors
[2025-04-26 09:43] VITALS: BMI 30.4
--- NOTE | 2025-04-26 10:19 | BOWEL_PTH ---
PATIENT: Melinda Goncalves LOC: [facility] U#:[id number] AGE/SX: 65/F ROOM: RE04/26/[address]: Crystal Galan MD : 1960 BED: DIS: 04/26/2025 SPEC #: [id number] RECD: 04/26/25 12:30 STATUS: MAYKEL RESrini #: [id number] JULIENNE: 04/26/25 10:[address]: Crystal Galan DEPT: Surgical Specimen RECD BY: Carmen Nieto ENTERED: 04/26/25 12:30 SP TYPE: Bowel OTHR DR: Carolynn Wisdom, CARLA Tissues: 1 - BIOPSY BOWEL 2 - BIOPSY BOWEL Procedures: GROSS AND MICRO LEVEL 4 Comments: [id number]
[2025-04-26 10:34] VITALS: BP 96/61; PULSE 55; RESP 16; TEMP 36.4; O2SAT 97
--- NOTE | 2025-04-26 10:37 | W.PM.DSUDISC ---
Date of service: 04/26/25 Discharge Plan Disposition Patient Disposition: Home Condition: Stable Discharge Details Reason For Visit: screening colonoscopy Attending Provider: Crystal Galan Primary Care Provider: Carolynn Wisdom Home Meds and New Rx's Prescriptions: Continued nystatin-triamcinolone 100,000-0.1 unit/g-% cream 1 applic topical BID Qty: 60 1RF rosuvastatin [Crestor] 5 mg tablet 2.5 mg PO DAILY Qty: 45 3RF Rx Instructions: Take half a tablet daily (DME) blood-glucose meter [OneTouch Ultra2 Meter] Misc See Rx Instructions .ROUTE .MEDSUPPLY Qty: 1 4RF Rx Instructions: Check blood sugar twice a day levothyroxine 50 mcg capsule 50 mcg PO DAILY Qty: 90 3RF Wezlana 90 mg/mL syringe 90 mg subcut Q8W metformin 500 mg tablet extended release 24 hr 1,000 mg PO BID Qty: 360 3RF (DME) OneTouch Ultra Test Strip See Rx Instructions .ROUTE .MEDSUPPLY Qty: 200 3RF Rx Instructions: Check blood sugar twice a day (DME) lancets [OneTouch Delica Plus Lancet] 33 gauge misc See Rx Instructions .Route Qty: 200 3RF Rx Instructions: Check blood sugar twice a day Discontinued bisacodyl [Dulcolax (bisacodyl)] 5 mg tablet,delayed release (DR/EC) 5 mg PO ONCE Qty: 4 0RF Rx Instructions: Take per colonoscopy instructions provided by ordering providers office peg 3350-electrolytes [Golytely] 236-22.74-6.74 -5.86 gram recon soln 240 ml PO Q10M Qty: 4000 0RF Rx Instructions: until fecal effluent is clear Discharge Instructions Additional Instructions: Ascending colon polyp rectum polyp Cecum AVM Two small polyps removed. Next colonoscopy will be due in 5 years I predict based on the biopsy results, but I will communicate results and recommendation with you in writing when the results return. AVM of cecum noted. An AVM is a small prominence of blood vessels. Yours shows no signs of bleeding. These are common. If You experience unexpected intestinal bleeding in your lifetime, consideration of this spot should be made. Just need to know its there. Most AVMs never bleed in their lifetime. 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
--- NOTE | 2025-04-26 10:45 | W.ANESPOSTOP ---
Postoperative Evaluation Date, Time and Location Date Performed: 04/26/25 Time Performed: 10:35 Patient Location: Day Surgery Unit Vital Signs Most Recent Imported Vital Signs: Most Recent Vital Signs Temp Pulse Resp BP Pulse Ox 36.4 C L 55 L 16 96/61 L 97 04/26/25 10:34 04/26/25 10:34 04/26/25 10:34 04/26/25 10:34 04/26/25 10:34 Pain Score Most Recent Pain Score: Most Recent Pain Score Pain Level 0 04/26/25 10:34 Assessment Mental Status: Awake (Alert & Oriented to Patient Baseline) Airway and Respiratory Function: Patent airway with normal (patient baseline) respiratory exam Cardiovascular Function: Hemodynamically Stable Hydration Status: Adequately Hydrated Nausea & Vomiting: No Nausea or Vomiting Pain: Pt. Denies Any Pain Peripheral Nerve Block: Patient did not receive a nerve block
[2025-04-26 11:04] VITALS: BP 113/67; PULSE 50; RESP 16; TEMP 36.2; O2SAT 98
--- NOTE | 2025-04-28 08:33 | W.COLOREPORT ---
Date of service: 04/26/25 Time of Service: 10:37 Colonoscopy Report Date of procedure: 04/26/25 Pre-op diagnosis general: Screening for colorectal cancer Post-op diagnosis procedure note: other (1. ascending colon polyp. 2. rectum polyp. ) Procedure: Colonoscopy Surgeon: Crystal Galan Anesthesia Type: General:No Airway Estimated blood loss (mL): 2 Pathology: other (1. ascending colon polyp. 2. rectum polyp. ) Complications: None Indications: screening for colorectal cancer Prep: Miralax/Dulcolax (excellent) Procedure Description: Informed consent was obtained and the patient was taken to the procedure area. The patient was placed in left lateral decubitus position on the procedure table. Timeout was performed. Anesthesia was induced. A lubricated colonoscope was inserted through the anus and passed to the cecum. The cecum was identified by the ileocecal valve and the appendiceal orifice. The scope was then slowly withdrawn and the colonic and rectal mucosa examined. TI intubated and examined. It appears normal. Cecum with 6mm AVM visible, nonbleeding. Ascending colon polyp 6mm sessile excised with cold forceps. Rectum 5mm sessile polyp excised with cold forceps. No diverticulosis was seen. The scope was retroflexed in the anorectal junction examined. Uncomplicated internal hemorrhoids present. Assessment and plan: Screening for colorectal cancer Cecum AVM Ascending colon polyp Rectum polyp Next colonoscopy timing will depend on path of excised polyps. Suspect she will be due in 3-5 years. Will notify patient of results in writing. Nonbleeding AVM noted. Pt provided written and verbal communication about AVM, and advised if she ever experiences GI bleeding this AVM can be treated. No indication for management at this time.
== END 2025-04-26 11:07 | disposition home or self-care (01) ==
PROVIDERS: PCP Nurse Practitioner Family; Visit Provider Surgery
PROC: 0DJD8ZZ Inspection of Lower Intestinal Tract, Via Natural or Artificial Opening Endoscopic (ICD-10-PCS; CPT 45378; principal; 2025-04-26 11:30)
DX: Z12.11 Encounter for screening for malignant neoplasm of colon (principal); K55.20 Angiodysplasia of colon without hemorrhage; D12.2 Benign neoplasm of ascending colon; D12.0 Benign neoplasm of cecum; K64.8 Other hemorrhoids
CPT/HCPCS: 45380; 88305; J2003; J2704

== ENCOUNTER 2025-06-10 13:17 | Outpatient (REF) | payer BC, SELFPAY ==
--- NOTE | 2025-06-10 13:15 | PAPFT_PTH ---
PATIENT: Melinda Goncalves LOC: [facility] U#:[id number] AGE/SX: 65/F ROOM: RE06/10/[address]: Joyce Bermudez DO : 1960 BED: DIS: 06/10/2025 SPEC #: [id number] RECD: 06/10/25 18:20 STATUS: MAYKEL REQ #: [id number] JULIENNE: 06/10/25 13:[address]: Joyce Bermudez DEPT: [facility] Cytology RECD BY: Carmen Nieto ENTERED: 06/10/25 18:20 SP TYPE: PAPFT OTHR DR: Carolynn Wisdom, WEB UI DESIGNER Tissues: 1 - CX/ENDOCX FOR PAP SMEARS Procedures: PAP THIN PREP/[facility] Screening HPV DNA PROBE Comments: [id number] (HPV 16 & 18/45)
== END 2025-06-10 13:18 | disposition home or self-care (01) ==
LOC: LBN 13:17
PROVIDERS: PCP Nurse Practitioner Family; Visit Provider Obstetrics & Gynecology
DX: Z11.51 Encounter for screening for human papillomavirus (HPV) (principal); Z01.419 Encounter for gynecological examination (general) (routine) without abnormal findings; R87.610 Atypical squamous cells of undetermined significance on cytologic smear of cervix (ASC-US)
CPT/HCPCS: 88142; 87624

== ENCOUNTER 2025-06-30 14:17 | Outpatient (CLI) | payer BC, SELFPAY ==
[2025-06-30 16:12] LABS: TSH (W/Ref FT4) 3.16 uIU/mL (0.55-4.78)
== END 2025-06-30 14:18 | disposition home or self-care (01) ==
LOC: LBO 14:18
PROVIDERS: PCP Nurse Practitioner Family; Visit Provider Nurse Practitioner Family
DX: E03.9 Hypothyroidism, unspecified (principal)
CPT/HCPCS: 36415; 84443